=== PATIENT | female | born 1950 | race Caucasian/White ===

== ENCOUNTER 2019-04-26 17:34 | Observation (INO) | payer MEDICARE, OTHER ==
[2019-04-25 23:50] VITALS: BP 118/71
[~2019-04-26] VITALS: Ht 149.9 cm; Wt 63.4 kg
[2019-04-26] MEDS ORDERED: NITROGLYCERIN 0.4 MG SL TABS BTL 25'S SL PRN (17:45)
[2019-04-26] MEDS ORDERED: ASPIRIN 81 MG CHEW (CHILDREN'S ASA) PO ONE (17:45)
[2019-04-26] MEDS ORDERED: HOLD METFORMIN - RECEIVED CONTRAST 20 ML VIAL IV SCH (18:00)
[2019-04-26] MEDS ORDERED: NS 100 ML (IVPB) BAG IV ONE (18:00)
[2019-04-26] MEDS ORDERED: IOHEXOL 350 MG/ML 150 ML (OMNIPAQUE 350) VIAL IV ONE (18:00)
[2019-04-26] MEDS ORDERED: RIVA20TA PO (18:01)
[2019-04-26] MEDS ORDERED: DIGO0.12 PO (18:01)
[2019-04-26] MEDS ORDERED: FURO-125 PO (18:01)
[2019-04-26] MEDS ORDERED: DIVA-76 PO (18:01)
[2019-04-26] MEDS ORDERED: POTA10TA36 PO (18:01)
[2019-04-26] MEDS ORDERED: [UNRECOGNIZED DRUG - CODE] MC (18:01)
[2019-04-26] MEDS ORDERED: ASPI-999 PO (18:01)
--- NOTE | 2019-04-26 18:04 | Diagnostic Imaging Report ---
INDICATION: Tachycardia, cardiac pacemaker. COMPARISON: None. FINDINGS: Single view of the chest demonstrates minimal cardiac enlargement. Lungs are clear. Single lead pacemaker is present. There is no pneumothorax or effusion. Osseous structures are normal. IMPRESSION: Slight cardiac enlargement without pulmonary edema or infiltrate. Dictated by: Dictated on workstation # [id number]
[2019-04-26] MEDS ORDERED: ONDN4T PO (18:05)
[2019-04-26] MEDS ORDERED: iron PO (18:05)
[2019-04-26] MEDS ORDERED: CETI10TA9 PO (18:05)
[2019-04-26] MEDS ORDERED: LISI2.5T PO (18:05)
[2019-04-26] MEDS ORDERED: PARO40TA3 PO (18:05)
[2019-04-26] MEDS ORDERED: CELE-63 PO (18:05)
[2019-04-26] MEDS ORDERED: METO-333 PO (18:05)
[2019-04-26] MEDS ORDERED: TRAZ-190 PO (18:05)
--- NOTE | 2019-04-26 18:05 | ED General ---
General Chief Complaint: General Problems/Pain Stated Complaint: WEAKNESS Nursing Triage Note: Patient advises that she has been feeling dizzy and weak throughout the day and has become progressively worse. She states she has a hx. of cardiac issues and feels like her heart is beating funny. Nursing Sepsis Screen: No Definite Risk Source of Information: Patient Exam Limitations: No Limitations History of Present Illness Date Seen by Provider: Apr 26, 2019 Time Seen by Provider: 18:03 Initial Comments To ER with reports dizziness weakness throughout the day and intermittent palpitations starting today. She just returned from [facility] where she was living last month, she sees Dr. Fitzgerald and has seen him since she has been in [facility] where she is living for the past several years. She has not established care with a primary care physician however. History of pacemaker placement. She is on digoxin and has a history of A. fib as well. She does have left-sided chest pain worse with deep breathing. She has a history of COPD as well. Timing/Duration: 1-2 Days Severity: Moderate Associated Systoms: Denies Symptoms Allergies and Home Medications Allergies Coded Allergies: Sulfa (Sulfonamide Antibiotics) (Verified Allergy, Unknown, 04/26/19) morphine (Verified Allergy, Unknown, 04/26/19) Home Medications Lisinopril 2.5 Mg Tablet, 2.5 MG PO DAILY, (Reported) Metoprolol Tartrate 25 Mg Tablet, 25 MG PO BID, (Reported) Patient Home Medication List Home Medication List Reviewed: Yes Review of Systems Review of Systems Constitutional: see HPI EENTM: see HPI Respiratory: no symptoms reported Cardiovascular: no symptoms reported Genitourinary: no symptoms reported Musculoskeletal: no symptoms reported Skin: no symptoms reported Psychiatric/Neurological: No Symptoms Reported Hematologic/Lymphatic: No Symptoms Reported Immunological/Allergic: no symptoms reported Past Jrpumun-Elwdpl-Kgtlvh Hx Patient Social History Alcohol Use: Denies Use Recreational Drug Use: No Smoking Status: Never a Smoker Recent Foreign Travel: No Contact w/Someone Who Travel: No Recent Infectious Disease Expo: No Seasonal Allergies Seasonal Allergies: Yes Past Medical History Respiratory: Yes Asthma, COPD Cardiac: Yes Atrial Fibrillation Neurological: No Genitourinary: No Gastrointestinal: No Musculoskeletal: No Endocrine: Yes HEENT: No Cancer: No Psychosocial: No Integumentary: No Blood Disorders: No Physical Exam Vital Signs Vital Signs - First Documented 04/26/19 17:37 Temp 36.4 Pulse 68 Resp 16 B/P (MAP) 151/80 (103) Pulse Ox 100 O2 Delivery Nasal Cannula O2 Flow Rate 2.00 FiO2 100 Capillary Refill : Less Than 3 Seconds Height, Weight, BMI Height: '" Weight: lbs. oz. kg; 28.00 BMI Method: General Appearance: No Apparent Distress, WD/WN Eyes: Bilateral Eye Normal Inspection, Bilateral Eye PERRL, Bilateral Eye EOMI Neck: Full Range of Motion, Normal Inspection Respiratory: No Accessory Muscle Use, No Respiratory Distress Cardiovascular: Regular Rate, Rhythm, Normal Peripheral Pulses Gastrointestinal: Normal Bowel Sounds, Non Tender, Soft Extremity: Normal Capillary Refill, Normal Inspection Neurologic/Psychiatric: Alert, Oriented x3 Skin: Normal Color, Warm/Dry Progress/Results/Core Measures Suspected Sepsis Recent Fever Within 48 Hours: No Infection Criteria Present: None New/Unexplained Altered Menta: No Sepsis Screen: No Definite Risk SIRS Temperature: Pulse: 68 Respiratory Rate: 16 Laboratory Tests 04/26/19 18:19: White Blood Count 7.1 Blood Pressure 151 /80 Mean: 103 Laboratory Tests 04/26/19 18:19: Creatinine 1.03, INR Comment 1.2, Platelet Count 222, Total Bilirubin 1.0 Results/Orders Lab Results Laboratory Tests Test 04/26/19 18:19 Range/Units White Blood Count 7.1 4.3-11.0 10^3/uL Red Blood Count 4.68 4.35-5.85 10^6/uL Hemoglobin 14.6 11.5-16.0 G/DL Hematocrit 43 35-52 % Mean Corpuscular Volume 92 80-99 FL Mean Corpuscular Hemoglobin 31 25-34 PG Mean Corpuscular Hemoglobin Concent 34 32-36 G/DL Red Cell Distribution Width 12.4 10.0-14.5 % Platelet Count 222 130-400 10^3/uL Mean Platelet Volume 10.5 H 7.4-10.4 FL Neutrophils (%) (Auto) 61 42-75 % Lymphocytes (%) (Auto) 29 12-44 % Monocytes (%) (Auto) 9 0-12 % Eosinophils (%) (Auto) 1 0-10 % Basophils (%) (Auto) 0 0-10 % Neutrophils # (Auto) 4.4 1.8-7.8 X 10^3 Lymphocytes # (Auto) 2.0 1.0-4.0 X 10^3 Monocytes # (Auto) 0.6 0.0-1.0 X 10^3 Eosinophils # (Auto) 0.1 0.0-0.3 10^3/uL Basophils # (Auto) 0.0 0.0-0.1 10^3/uL Prothrombin Time 15.2 H 12.2-14.7 SEC INR Comment 1.2 0.8-1.4 Activated Partial Thromboplast Time 45 H 24-35 SEC D-Dimer 0.53 H 0.00-0.49 UG/ML Sodium Level 144 135-145 MMOL/L Potassium Level 3.4 L 3.6-5.0 MMOL/L Chloride Level 105 98-107 MMOL/L Carbon Dioxide Level 27 21-32 MMOL/L Anion Gap 12 5-14 MMOL/L Blood Urea Nitrogen 15 7-18 MG/DL Creatinine 1.03 0.60-1.30 MG/DL Estimat Glomerular Filtration Rate 53 BUN/Creatinine Ratio 15 Glucose Level 86 70-105 MG/DL Calcium Level 9.4 8.5-10.1 MG/DL Corrected Calcium 9.3 8.5-10.1 MG/DL Magnesium Level 1.8 1.6-2.4 MG/DL Total Bilirubin 1.0 0.1-1.0 MG/DL Aspartate Amino Transf (AST/SGOT) 21 5-34 U/L Alanine Aminotransferase (ALT/SGPT) 15 0-55 U/L Alkaline Phosphatase 119 40-136 U/L Myoglobin 32.4 10.0-92.0 NG/ML Troponin I < 0.028 <0.028 NG/ML B-Type Natriuretic Peptide 252.8 H <100.0 PG/ML Total Protein 7.1 6.4-8.2 GM/DL Albumin 4.1 3.2-4.5 GM/DL Digoxin Level < 0.30 L 0.80-2.00 NG/ML My Orders Orders - JAIRO GALE APRN Cbc With Automated Diff (04/26/19 17:39) Comprehensive Metabolic Panel (04/26/19 17:39) Magnesium (04/26/19 17:39) Chest 1 View, Ap/Pa Only (04/26/19 17:39) Ekg Tracing (04/26/19 17:39) Cardiac Profile 1 (04/26/19 17:39) Myoglobin Serum (04/26/19 17:39) Protime With Inr (04/26/19 17:39) Partial Thromboplastin Time (04/26/19 17:39) O2 (04/26/19 17:39) Monitor-Rhythm Ecg Trace Only (04/26/19 17:39) Lipid Panel (04/27/19 06:00) Ed Iv/Invasive Line Start (04/26/19 17:39) BNP (04/26/19 17:39) Digoxin (04/26/19 17:43) Aspirin Chewable Tablet (Baby Aspirin Ch (04/26/19 17:45) Nitroglycerin 0.4 Mg Btl 25's (Nitrostat (04/26/19 17:45) Iohexol Injection (Omnipaque 350 Mg/Ml 1 (04/26/19 18:00) Received Contrast (Hold Metformin- Contr (04/26/19 18:00) Ns (Ivpb) (Sodium Chloride 0.9% Ivpb Bag (04/26/19 18:00) Fibrin Degradation Products (04/26/19 17:39) Ketorolac Injection (Toradol Injection) (04/26/19 20:15) Fentanyl Injection (Sublimaze Injection (04/26/19 20:15) Lidocaine 1% Inj 20 Ml (Xylocaine 1% Inj (04/26/19 20:15) Chest 1 View, Ap/Pa Only (04/26/19 20:36) Drug Screen Stat (Urine) (04/26/19 20:45) Medications Given in ED Current Medications Medications Dose Ordered Sig/Nicole Route Start Time Stop Time Status Last Admin Dose Admin Aspirin 324 mg ONCE ONCE PO 04/26/19 17:45 04/26/19 17:47 DC 04/26/19 18:08 324 MG Lidocaine HCl 2 ml ONCE ONCE INJ 04/26/19 20:15 04/26/19 20:16 DC 04/26/19 20:20 2 ML Vital Signs/I&O 04/26/19 04/26/19 17:37 17:37 Temp 36.4 Pulse 68 Resp 16 B/P (MAP) 151/80 (103) Pulse Ox 100 100 O2 Delivery Nasal Cannula Nasal Cannula O2 Flow Rate 2.00 FiO2 100 Capillary Refill : Less Than 3 Seconds Blood Pressure Mean: 103 Departure Communication (Admissions) Time/Spoke to Admitting Phy: 20:[address] Patel, we'll admit, spoke with Dr. Read, Dr. Fitzgerald will consult in the morning. 2016-her IV blew with administration of contrast for the CT angio chest, she refuses to have this done again. She states that she had to have a PICC line last time she was in the hospital due to difficult IV access. I attempted Twice for peripheral IV myself, nursing staff has attempted as well. She states she has terrible veins and has had have IVs placed in her neck historically.. I'll Use a 20-gauge by 1.88 inch single lumen IV catheter placed by ultrasound guidance into the right internal jugular. Dr. oYu agrees with this plan. Impression Primary Impression: Chest pain Qualified Codes: R07.9 - Chest pain, unspecified Disposition: ADMITTED INPATIENT Condition: Stable Admissions Decision to Admit Reason: Admit from ER (General) Decision to Admit/Date: Apr 26, 2019 Time/Decision to Admit Time: 20:17 JAIRO GALE APRN Apr 26, 2019 18:05
[2019-04-26 18:27] LABS: BASOPHILS % (AUTO) 0 % (0-10); EOSINOPHILS # (AUTO) 0.1 10^3/uL (0.0-0.3); EOSINOPHILS % (AUTO) 1 % (0-10); HEMATOCRIT 43 % (35-52); HEMOGLOBIN 14.6 G/DL (11.5-16.0); LYMPHOCYTES % (AUTO) 29 % (12-44); MEAN CORPUSCULAR HEMOGLOBIN 31 PG (25-34); MEAN CORPUSCULAR HGB CONC 34 G/DL (32-36); MEAN CORPUSCULAR VOLUME 92 FL (80-99); MEAN PLATELET VOLUME 10.5 FL (7.4-10.4); MONOCYTES # (AUTO) 0.6 X 10^3 (0.0-1.0); MONOCYTES % (AUTO) 9 % (0-12); NEUTROPHILS # (AUTO) 4.4 X 10^3 (1.8-7.8); NEUTROPHILS % (AUTO) 61 % (42-75); PLATELET COUNT 222 10^3/uL (130-400); RED CELL DISTRIBUTION WIDTH 12.4 % (10.0-14.5); WHITE BLOOD COUNT 7.1 10^3/uL (4.3-11.0)
[2019-04-26 18:40] LABS: FIBRIN DEGRADATION PRODUCTS 0.53 UG/ML (0.00-0.49); INR 1.2 (0.8-1.4); PROTHROMBIN TIME PATIENT 15.2 SEC (12.2-14.7)
[2019-04-26 18:45] LABS: ALANINE AMINOTRANSFERASE 15 U/L (0-55); ALBUMIN 4.1 GM/DL (3.2-4.5); ALKALINE PHOSPHATASE 119 U/L (40-136); BUN/CREATININE RATIO 15; CALCIUM 9.4 MG/DL (8.5-10.1); CARBON DIOXIDE 27 MMOL/L (21-32); CHLORIDE 105 MMOL/L (98-107); CREATININE SERUM 1.03 MG/DL (0.60-1.30); GFR ESTIMATED 53; GLUCOSE 86 MG/DL (70-105); MAGNESIUM 1.8 MG/DL (1.6-2.4); POTASSIUM 3.4 MMOL/L (3.6-5.0); SODIUM 144 MMOL/L (135-145); TOTAL PROTEIN 7.1 GM/DL (6.4-8.2)
[2019-04-26] MEDS ORDERED: KETOROLAC 30 MG/ML VIAL IVP ONE (20:15)
[2019-04-26] MEDS ORDERED: LIDOCAINE 1% INJ 20 ML 20 ML VIAL INJ ONE (20:15)
[2019-04-26] MEDS ORDERED: fentaNYL INJECTION 100 MCG/2 ML AMP IVP ONE (20:15)
--- NOTE | 2019-04-26 20:44 | NUR ---
Stefano GALE APRN REVIEWED pCXR AFTER PLACEMENT OF 20G PERIPHERAL IJ FOR IV ACCESS AND DETERMINED SITE IS OK FOR USE.
--- NOTE | 2019-04-26 21:07 | Diagnostic Imaging Report ---
INDICATION: Line placement. EXAMINATION: Portable erect AP chest at 8:40 p.m. FINDINGS: The heart size is within normal limits and stable when compared with the exam performed earlier today at 5:54 p.m. The right-sided pacemaker, seen previously, is again evident and unchanged in position. The lungs are clear. There is still no sign of failure, pneumonia or a pleural effusion. The mediastinum is not widened. The osseous structures are intact. Reportedly, a line has been inserted in the interval since the prior exam. There is a 4 cm radiopaque device overlying the right neck. Reportedly, this density does correspond to the recently inserted line. IMPRESSION: 1. There is no evidence for an acute cardiopulmonary abnormality. 2. There is a new radiopaque line overlying the right neck. 3. These results were discussed with Brendan Hall APRN. . Dictated by: Dictated on workstation # [id number]
--- NOTE | 2019-04-26 21:25 | NUR ---
RIGHT IJ IV WILL NOT FLUSH. tSefano GALE APRN NOTIFIED. RIGHT IJ REMOVED AT THIS TIME AND PRESSURE HELD UNTIL CLOTTED.
--- NOTE | 2019-04-26 21:45 | NUR ---
JACE PARRISH Joy admitted to room 416-1, with an admitting diagnosis of CHEST PAIN,CHF, on 04/26/19 from AM via CART, accompanied by STAFF.JACE PARRISH introduced to surroundings, call light, bed controls, phone, TV, temperature control, lights, meal times, smoking policy, visitor policy, side rail policy, bathrooms and showers. Patient Rights given to patient in the handbook. JACE PARRISH verbalizes understanding that [facility] is not responsible for the loss or damage to any personal effects or valuables that are kept in the patients posession during their hospitalization.
[2019-04-26 22:02] VITALS: BP 127/58
[2019-04-26] MEDS ORDERED: ONDANSETRON 4 MG/2 ML (SDV) Z0FRAN IV PRN (22:15)
[2019-04-27] VITALS: BP 118/71
[2019-04-27] MEDS: fentaNYL INJECTION 100 MCG/2 ML AMP IV PRN ×2 (01:07→06:23)
[2019-04-27 04:00] VITALS: BP 103/52
[2019-04-27] MEDS ORDERED: FUROSEMIDE 20 MG (LASIX) TAB PO SCH (07:00)
--- NOTE | 2019-04-27 07:34 | Diagnostic Imaging Report ---
Indication: Chest pain Portable chest 3:42 AM There is a unipolar pacemaker. Heart size and pulmonary vascularity are normal. Lungs are clear. There are no effusions or pneumothoraces. IMPRESSION: No acute abnormalities in the chest. No change from the previous day. Dictated by: Dictated on workstation # [id number]
[2019-04-27 08:00] VITALS: BP 115/54
--- NOTE | 2019-04-27 08:24 | Consultation-Cardiology ---
HPI-Cardiology Cardiology Consultation Date of Consultation 04/27/19 Date of Admission Time Seen by Provider: 08:22 Indication: Chest pain HPI 67-year-old lady with history of rheumatoid arthritis, coronary artery disease, congestive heart failure, has been having episode of chest pain described as dull in nature on the left side radiating to the back. Admit having some palpit ation episode of dizziness, reported 2 syncopal episodes yesterday while washing dishes and walking to the chair was caught by her did not fall, no full loss of consciousness. Has been compliant with her medication. She moved from [place] recently, had extensive workup done in [place] in February 2000 Home Medications & Allergies Allergies: Coded Allergies: Sulfa (Sulfonamide Antibiotics) (Verified Allergy, Unknown, 04/26/19) morphine (Verified Allergy, Unknown, 04/26/19) Home Medication List Reviewed: Yes PMW-Ulsbxu-Xawhco Hx Patient Social History Marital Status: Employed/Student: retired Alcohol Use: Denies Use Recreational Drug Use: No Smoking Status: Never a Smoker Recent Foreign Travel: No Recent Infectious Disease Expo: Yes (Had flu shot two weeks ago) Immunizations Up To Date Date of Influenza Vaccine: Apr 17, 2019 Past Medical History Discussed below Family Medical History Family Medical Hx Noncontributory to her current condition Review of Systems-General Review of Systems Constitutional: see HPI, malaise, weakness EENTM: see HPI, no symptoms reported Respiratory: see HPI; No cough; dyspnea on exertion; No hemoptysis, No orthopnea, No phlegm, No short of breath, No stridor, No wheezing, No other Cardiovascular: see HPI, chest pain; No edema, No Hx of Intervention; palpitations, syncope; No vascular heart diseas, No other Gastrointestinal: no symptoms reported, see HPI Genitourinary: no symptoms reported, see HPI Musculoskeletal: see HPI, back pain, joint pain, muscle pain Skin: no symptoms reported, see HPI Psychiatric/Neurological: No Symptoms Reported Reviewed Test Results Reviewed Test Results Lab Laboratory Tests Test 04/26/19 18:19 04/27/19 01:00 04/27/19 06:00 Range/Units White Blood Count 7.1 4.3-11.0 10^3/uL Red Blood Count 4.68 4.35-5.85 10^6/uL Hemoglobin 14.6 11.5-16.0 G/DL Hematocrit 43 35-52 % Mean Corpuscular Volume 92 80-99 FL Mean Corpuscular Hemoglobin 31 25-34 PG Mean Corpuscular Hemoglobin Concent 34 32-36 G/DL Red Cell Distribution Width 12.4 10.0-14.5 % Platelet Count 222 130-400 10^3/uL Mean Platelet Volume 10.5 H 7.4-10.4 FL Neutrophils (%) (Auto) 61 42-75 % Lymphocytes (%) (Auto) 29 12-44 % Monocytes (%) (Auto) 9 0-12 % Eosinophils (%) (Auto) 1 0-10 % Basophils (%) (Auto) 0 0-10 % Neutrophils # (Auto) 4.4 1.8-7.8 X 10^3 Lymphocytes # (Auto) 2.0 1.0-4.0 X 10^3 Monocytes # (Auto) 0.6 0.0-1.0 X 10^3 Eosinophils # (Auto) 0.1 0.0-0.3 10^3/uL Basophils # (Auto) 0.0 0.0-0.1 10^3/uL Prothrombin Time 15.2 H 12.2-14.7 SEC INR Comment 1.2 0.8-1.4 Activated Partial Thromboplast Time 45 H 24-35 SEC D-Dimer 0.53 H 0.00-0.49 UG/ML Sodium Level 144 135-145 MMOL/L Potassium Level 3.4 L 3.6-5.0 MMOL/L Chloride Level 105 98-107 MMOL/L Carbon Dioxide Level 27 21-32 MMOL/L Anion Gap 12 5-14 MMOL/L Blood Urea Nitrogen 15 7-18 MG/DL Creatinine 1.03 0.60-1.30 MG/DL Estimat Glomerular Filtration Rate 53 BUN/Creatinine Ratio 15 Glucose Level 86 70-105 MG/DL Calcium Level 9.4 8.5-10.1 MG/DL Corrected Calcium 9.3 8.5-10.1 MG/DL Magnesium Level 1.8 1.6-2.4 MG/DL Total Bilirubin 1.0 0.1-1.0 MG/DL Aspartate Amino Transf (AST/SGOT) 21 5-34 U/L Alanine Aminotransferase (ALT/SGPT) 15 0-55 U/L Alkaline Phosphatase 119 40-136 U/L Myoglobin 32.4 10.0-92.0 NG/ML Troponin I < 0.028 < 0.028 < 0.028 <0.028 NG/ML B-Type Natriuretic Peptide 252.8 H <100.0 PG/ML Total Protein 7.1 6.4-8.2 GM/DL Albumin 4.1 3.2-4.5 GM/DL Digoxin Level < 0.30 L 0.80-2.00 NG/ML Physical Exam Physical Exam Vital Signs Vital Signs - First Documented 04/25/19 04/26/19 23:50 17:37 Temp 36.2 Pulse 68 Resp 20 B/P (MAP) 118/71 (87) Pulse Ox 97 O2 Delivery Nasal Cannula O2 Flow Rate 2.00 FiO2 100 Capillary Refill : Less Than 3 Seconds Height, Weight, BMI Height: '" Weight: lbs. oz. kg; 28.21 BMI Method: General Appearance: No Apparent Distress, WD/WN Eyes: Bilateral Eye Normal Inspection, Bilateral Eye PERRL, Bilateral Eye EOMI HEENT: PERRL/EOMI, TMs Normal, Normal ENT Inspection, Pharynx Normal, Moist Mucous Membranes Neck: Full Range of Motion, Normal Inspection Respiratory: No Accessory Muscle Use, No Respiratory Distress Cardiovascular: Regular Rate, Rhythm, No Edema, No Gallop, No Murmur, Normal Peripheral Pulses Gastrointestinal: Normal Bowel Sounds, Non Tender, Soft Back: Normal Inspection, No CVA Tenderness, No Vertebral Tenderness Extremity: Normal Capillary Refill, Normal Inspection Neurologic/Psychiatric: Alert, Oriented x3 Skin: Normal Color, Warm/Dry Lymphatic: No Adenopathy A/P-Cardiology Admission Diagnosis Chest pain Congestive heart failure, chronic compensated left ventricular systolic dysfunction, nonischemic cardiomyopathy Syncope Hypertension Chronic atrial fibrillation Assessment/Plan Chest pain nonspecific etiology, atypical in presentation, EKG did not show any acute abnormality, cardiac enzymes were negative, had a cardiac catheterization done in February 2019 [place] and reported to be normal Coronary artery disease, multiple interventions in the past, had a cardiac catheterization done in [place] in February 2019 reported to have 40-50 percent LAD stenosis otherwise mild coronary artery disease nonobstructive disease. Congestive heart failure, history of pacemaker, I will evaluate 2-D echocardiogram History of permanent pacemaker Medtronic, interrogation of the pacemaker showed single chamber pacemaker functioning normally, had one short runs of atrial fibrillation with rapid ventricular response on April 23, 2019. Syncope, had multiple episodes of hypotension and dizziness, taking pain medication, will evaluate orthostatic blood pressure. Paroxysmal atrial fibrillation, maintained on Xarelto Hypertension, controlled, monitor blood pressure Hyperlipidemia, monitor lipids. Gastroesophageal reflux disease maintained on PPI and Carafate. Anxiety, depression Clinical Quality Measures DVT/VTE Risk/Contraindication: Risk Factor Score Per Nursin RFS Level Per Nursing on Admit: 4+=Very High ADELAIDA RIGGS MD Apr 27, 2019 08:24
[2019-04-27 08:30] VITALS: BP_SYST 109; BP_SYST 111; BP_SYST 119; BP_DIAS 51; BP_DIAS 57; BP_DIAS 58
[2019-04-27] MEDS ORDERED: POTA10CA43 PO (08:57)
[2019-04-27] MEDS ORDERED: ONDA4TAB11 PO (08:57)
[2019-04-27] MEDS ORDERED: DIGO125T3 PO (08:57)
[2019-04-27] MEDS ORDERED: GLYC15DR3 OU (08:57)
[2019-04-27] MEDS ORDERED: FOLI-74 PO (08:57)
[2019-04-27] MEDS ORDERED: FERR325T18 PO (08:57)
[2019-04-27] MEDS ORDERED: KETO5DRO15 OU (08:57)
[2019-04-27] MEDS ORDERED: POLY17PO6 PO (08:57)
[2019-04-27] MEDS ORDERED: CRAN1TAB4 PO (08:57)
[2019-04-27] MEDS ORDERED: ASPIRIN E.C. 81 MG (ECOTRIN) TAB PO SCH (09:00)
[2019-04-27] MEDS ORDERED: DIGOXIN 0.125 MG (LANOXIN) TAB PO SCH (09:00)
[2019-04-27] MEDS ORDERED: lisINopril 5 MG (PRINIVIL) TABLET PO SCH (09:00)
[2019-04-27] MEDS ORDERED: meTOprolol TARTRATE 25 MG (LOPRESSOR) TABLET PO SCH (09:00)
--- NOTE | 2019-04-27 09:00 | NUR ---
SPOKE WITH THE PATIENT ABOUT HER MEDICATIONS. SHE HAD ALL OF HER BOTTLES WITH HER. SHE HAS FILLED MOST OF THEM AT [facility] IN [facility] HOWEVER SHE STATES SHE HAS NOW MOVED HERE AND WILL BE USING [facility] IN [place]. BOTTLES SHE HAS WITH HER FROM [employer]: 03-28-19 PAXIL 40MG #14 (TAKES AT HS, NEEDS TO GET IT REFILLED) 03-13-19 POTASSIUM 10MEQ CAP DAILY #90 03-13-19 METOPROLOL TARTRATE 25MG 1/2 BID #90 03-13-19 LASIX 20MG DAILY #90 03-13-19 LISINOPRIL 2.5MG DAILY #90 03-13-19 XARELTO 20MG EVERY EVENING #90 (TAKES AT 1000) 03-13-19 DIGOXIN 0.125MG DAILY #90 03-13-19 CELEBREX 200MG BID #60 02-23-19 TRAZODONE 100MG BID #180 OTHER BOTTLES: KETOTIFEN OU BID (NEEDS TO GET IT REFILLED) 09-26-18 ZOFRAN ODT 4MG Q4H PRN #30 12-31-[address] 500MG BID #60 ([facility], STATES THEY JUST PUT NEW PILL IN THE BOTTLE BUT IS TAKING IT BID AND HAS NOT MISSED DOSES DESPITE THE PAST DUE FILL DATE- PHARMACY WAS CLOSED WHEN I CALLED TO VERIFY) OTC MEDS: MIRALAX PRN ASPIRIN 81MG CHEW DAILY ZYRTEC 10MG DAILY FERROUS SULFATE 325MG DAILY ONE A DAY FOR WOMEN DAILY LUBRICANT EYE DROPS PRN CRANBERRY AZO 2 DAILY
--- NOTE | 2019-04-27 09:00 | NUR ---
B/P LYING 109/51, SITTING 119/57, AND STANDING 111/58. REPORT TO DR. RIGGS.
--- NOTE | 2019-04-27 10:04 | NUR ---
PACEMAKER INTEROGATED AND REPORT TO DR. RIGGS.
[2019-04-27 11:26] LABS: BILIRUBIN,URINE NEGATIVE (NEGATIVE); CLARITY,URINE CLEAR; COLOR,URINE YELLOW; GLUCOSE, URINE (UA) NEGATIVE (NEGATIVE); KETONES,URINE NEGATIVE (NEGATIVE); LEUKOCYTE ESTERASE ,URINE 1+ (NEGATIVE); NITRITE,URINE NEGATIVE (NEGATIVE); PH,URINE 6 (5-9); PROTEIN,URINE 1+ (NEGATIVE)
[2019-04-27 11:35] LABS: BACTERIA,URINE TRACE /HPF; RBC,URINE RARE /HPF
[2019-04-27 12:00] VITALS: BP 101/56
[2019-04-27] MEDS ORDERED: TRM50T PO (12:41)
--- NOTE | 2019-04-27 12:43 | Discharge Instructions ---
Discharge Instructions Discharge Medications New, Converted or Re-Newed RX: RX Given to Pt/Family Patient Instructions Patient Instructions Take medications as prescribed. Follow up with Dr. Mancilla. Establish with a primary care physician. Return to [facility] Hospital For: chest pain, shortness of breath, or if you feel like you're getting worse. Activity & Diet Discharge Diet: No Restrictions Activity as Tolerated: Yes ATIF MARTEL MD Apr 27, 2019 12:43
--- NOTE | 2019-04-27 14:03 | NUR ---
CM/SS spoke with the patient regarding discharge planning and her obtaining a PCP. Patient had an appointment with Dr Velasco at [facility] and Dr shawceled it. Provided information on other physicians at [facility] and other PCP in [place]. Patient was wanting to follow up with [facility].
--- NOTE | 2019-04-27 15:09 | NUR ---
RX AND INST AND VERBALIZED UNDERSTANDING. DC'D TO HOME WITH FAMILY.
[2019-04-27] MEDS ORDERED: RIVAROXABAN 20 MG TABLET (XARELTO) PO SCH (17:00)
--- NOTE | 2019-04-28 12:49 | Discharge Summary ---
Discharge Summary Hospital Course Was the Problem List Reviewed?: Yes Problems/Dx: (1) Atypical chest pain Status: Acute Final Diagnosis: Atypical chest pain Hospital Course Date of Admission: Apr 26, 2019 at 20:49 Admission Diagnosis : Chest pain Family Physician/Provider: [facility]il[facility] Physician Date of Discharge: 04/28/19 Discharge Diagnosis: Atypical chest pain Hospital Course: Nubia Gore is a 67yoF with history of coronary artery disease presented with left-sided chest pain and was diagnosed with costochondritis. She had serial troponins which were negative. She had an EKG without concerning changes. She had a recent heart catheterization in [place] which was normal. She had an echocardiogram which revealed a normal ejection fraction and no regional wall motion abnormalities. She should use [id number] Tylenol for costochondritis. She should follow up with cardiology. She needs to establish with a primary care physician. Labs and Pending Lab Test: Home Meds Active Tramadol HCl 50 Mg Tablet 50 Mg PO Q6H PRN 7 Days Reported Ketotifen Fumarate 5 Ml Drops 1 Drop OU BID Azo Cranberry Tablet (Cranberry Conc/C/Bacill Coag) 1 Each Tablet 2 Tab PO DAILY Lubricant Eye Drops (Glycerin/Propylene Glycol) 15 Ml Drops 1 Drop OU TID PRN One Daily For Women Tablet (Folic Acid/Mv,Fe,Other Min) 1 Each Tablet 1 Tab PO DAILY Ferrous Sulfate 325 Mg Tablet 325 Mg PO DAILY Ondansetron Odt (Ondansetron) 4 Mg Tab.rapdis 4 Mg PO Q4H PRN Potassium Chloride 10 Meq Capsule.er 10 Meq PO DAILY Digoxin 125 Mcg Tablet 125 Mcg PO DAILY Miralax (Polyethylene Glycol 3350) 17 Gm Powd.pack 17 Gm PO DAILY PRN Celecoxib 200 Mg Capsule 200 Mg PO BID Trazodone HCl 100 Mg Tablet 100 Mg PO BID Lisinopril 2.5 Mg Tablet 2.5 Mg PO DAILY Wal-Zyr (Cetirizine HCl) 10 Mg Tablet 10 Mg PO DAILY Paroxetine HCl 40 Mg Tablet 40 Mg PO HS Metoprolol Tartrate 25 Mg Tablet 12.5 Mg PO BID TAKES 1/2 (25MG) TABLET Lasix (Furosemide) 20 Mg Tablet 20 Mg PO DAILY Divalproex Sodium 500 Mg Tablet.dr 500 Mg PO BID Aspirin 81 Mg Tab.chew 81 Mg PO DAILY Xarelto (Rivaroxaban) 20 Mg Tablet 20 Mg PO 1000 Assessment/Pt Instructions Take medications as prescribed. Follow up with Dr. Fitzgerald. Establish with a primary care doctor. Discharge Instructions Discharge Diet: No Restrictions Activity as Tolerated: Yes Pneumonia Vaccine Order Indica: Yes Consultations cardiology Discharge Physical Examination General Appearance: Alert, Oriented X3, Cooperative, No Acute Distress HEENT: Atraumatic, EOMI Cardiovascular: Regular Rate, No Murmurs Abdominal: Normal Bowel Sounds, Soft, No Tenderness Extremities: No Edema, No Tenderness/Swelling Skin: No Rashes, No Significant Lesion Neuro: Normal Speech, Normal Tone Psych/Mental Status: Mental Status NL, Mood NL Allergies: Coded Allergies: Sulfa (Sulfonamide Antibiotics) (Verified Allergy, Unknown, 04/26/19) morphine (Verified Allergy, Unknown, 04/26/19) Discharge Summary Date of Admission Apr 26, 2019 at 20:49 Date of Discharge Apr 27, 2019 at 15:10 Discharge Date: Apr 27, 2019 Discharge Time: 14:00 Admission Diagnosis chest pain Consults/Procedures Consulations cardiology Discharge Diagnosis (1) Atypical chest pain Status: Acute Clinical Quality Measures DVT/VTE Risk/Contraindication: Risk Factor Score Per Nursin RFS Level Per Nursing on Admit: 4+=Very High ATIF MARTEL MD Apr 28, 2019 12:48
--- OUTSIDE RECORDS SUMMARY | 2019-05-20 03:17 | XMS REPORT ---
Author Author [facility] M edical Staff POS Organization [facility] SP Address [address] [place] [address] Phone [phone] SP Summary purpose CCDA Sent to [facility] Chief Complaint and Reason for Visit No authorized Reason for Visit (Admitting Diagnosis) is available for this visit . Problem list No authorized problems tracked for continuity of care are available for this vis it. Encounters No authorized problems tracked for encounter diagnoses are available for this vi sit. Medications No medications recorded for this patient visit Allergies, adverse reactions, alerts No allergy information is available for this patient. Immunizations No immunizations recorded for this patient visit Relevant diagnostic tests and/or laboratory data No authorized results are available for this patient visit History of procedures Procedure Code Code Type Description Date Performed [place] [address] CPT-4 COMPLETE CBC W/AUTO DIFF WBC 05-11-2017 MAEGAN POST Functional status No functional or cognitive status observations are available for this visit. Vital signs No authorized vital signs are available for this visit. Social history No Social History or smoking status observations were recorded for this visit. ( Unknown if ever smoked.) Treatment Plan No treatment plan text is available for this visit. Hospital discharge instructions No discharge instruction text is available for this visit.
== END 2019-04-27 12:39 | disposition home or self-care (01) ==
LOC: EDUNIT# 17:34 → ER 17:37 → EDBD 17:37 → 4TH 20:49 → UNDOADMOB 20:49 → 4TH 21:45 → UNDODISOB 04-27 15:10
PROVIDERS: ADMIT Internal Medicine; ATTEND Internal Medicine
DX: R07.9 Chest pain, unspecified (principal); R53.1 Weakness; I11.0 Hypertensive heart disease with heart failure; I50.9 Heart failure, unspecified; I48.20 Chronic atrial fibrillation, unspecified; I95.9 Hypotension, unspecified; I48.0 Paroxysmal atrial fibrillation; J30.9 Allergic rhinitis, unspecified; J44.9 Chronic obstructive pulmonary disease, unspecified; E78.5 Hyperlipidemia, unspecified; K21.9 Gastro-esophageal reflux disease without esophagitis; F41.8 Other specified anxiety disorders; Z88.5 Allergy status to narcotic agent; Z88.2 Allergy status to sulfonamides; Z79.899 Other long term (current) drug therapy; Z95.0 Presence of cardiac pacemaker
CPT/HCPCS: 36415; 71045; 80053; 80162; 81000; 83735; 83874; 83880; 84484; 85025; 85379; 85610; 85730; 87088; 93005; 93041; 93306; 96374; 96375; G0378

== ENCOUNTER 2019-05-12 14:58 | Emergency (ER) | payer MEDICARE ==
[~2019-05-12] VITALS: Ht 152 cm; Wt 69.9 kg
[~2019-05-12 14:58] MED LIST: ASPI-999 PO; CELE-63 PO; CETI10TA9 PO; CRAN1TAB4 PO; DIGO0.12 PO; DIGO125T3 PO; DIVA-76 PO; FERR325T18 PO; FOLI-74 PO; FURO-125 PO; GLYC15DR3 OU; KETO5DRO15 OU; LISI2.5T PO; METO-333 PO; ONDA4TAB11 PO; ONDN4T PO; PARO40TA3 PO; POLY17PO6 PO; POTA10CA43 PO; POTA10TA36 PO; RIVA20TA PO; TRAZ-190 PO; TRM50T PO; [UNRECOGNIZED DRUG - CODE] MC; iron PO
--- NOTE | 2019-05-12 15:08 | ED General ---
General Stated Complaint: SEIZURE Source of Information: Patient Exam Limitations: No Limitations History of Present Illness Date Seen by Provider: May 12, 2019 Time Seen by Provider: 15:06 Initial Comments To ER with reports of seizure-like activity. EMS was called to [place] where she was at when she reported some lightheadedness. Family helped her to the floor, she was alert but had some twitching motion, she was able to talk throughout this twitching motion. She has paroxysmal atrial fibrillation, was seen here recently and follows with Dr. Corea now. She ran out of her Ultram last week and her paroxetine last week. She denies chest pain or shortness of breath. She still feels lightheaded she reports. Timing/Duration: 1-2 Days Severity: Moderate Associated Systoms: Denies Symptoms, Weakness Allergies and Home Medications Allergies Coded Allergies: Sulfa (Sulfonamide Antibiotics) (Verified Allergy, Unknown, 04/26/19) morphine (Verified Allergy, Unknown, 04/26/19) Home Medications Aspirin 81 Mg Tab.chew, 81 MG PO DAILY, (Reported) Celecoxib 200 Mg Capsule, 200 MG PO BID, (Reported) Cetirizine HCl 10 Mg Tablet, 10 MG PO DAILY, (Reported) Cranberry Conc/C/Bacill Coag 1 Each Tablet, 2 TAB PO DAILY, (Reported) Digoxin 125 Mcg Tablet, 125 MCG PO DAILY, (Reported) Divalproex Sodium 500 Mg Tablet.dr, 500 MG PO BID, (Reported) Ferrous Sulfate 325 Mg Tablet, 325 MG PO DAILY, (Reported) Folic Acid/Mv,Fe,Other Min 1 Each Tablet, 1 TAB PO DAILY, (Reported) Furosemide 20 Mg Tablet, 20 MG PO DAILY, (Reported) Glycerin/Propylene Glycol 15 Ml Drops, 1 DROP OU TID PRN for DRY EYES, (Reported) Ketotifen Fumarate 5 Ml Drops, 1 DROP OU BID, (Reported) Lisinopril 2.5 Mg Tablet, 2.5 MG PO DAILY, (Reported) Metoprolol Tartrate 25 Mg Tablet, 12.5 MG PO BID, (Reported) TAKES 1/2 (25MG) TABLET Ondansetron 4 Mg Tab.rapdis, 4 MG PO Q4H PRN for NAUSEA/VOMITING-1ST LINE, (Reported) Paroxetine HCl 40 Mg Tablet, 40 MG PO HS, (Reported) Polyethylene Glycol 3350 17 Gm Powd.pack, 17 GM PO DAILY PRN for CONSTIPATION-2ND LINE, (Reported) Potassium Chloride 10 Meq Capsule.er, 10 MEQ PO DAILY, (Reported) Rivaroxaban 20 Mg Tablet, 20 MG PO 1000, (Reported) Tramadol HCl 50 Mg Tablet, 50 MG PO Q6H PRN for PAIN-MODERATE Prescribed by: ATIF MARTEL on 04/27/19 1241 Trazodone HCl 100 Mg Tablet, 100 MG PO BID, (Reported) Patient Home Medication List Home Medication List Reviewed: Yes Review of Systems Review of Systems Constitutional: see HPI EENTM: see HPI Respiratory: no symptoms reported Cardiovascular: no symptoms reported Genitourinary: no symptoms reported Musculoskeletal: no symptoms reported Skin: no symptoms reported Psychiatric/Neurological: No Symptoms Reported Hematologic/Lymphatic: No Symptoms Reported Immunological/Allergic: no symptoms reported Past Pfmanim-Bkjfga-Cmaidj Hx Immunizations Up To Date Date of Influenza Vaccine: Apr 17, 2019 Seasonal Allergies Seasonal Allergies: Yes Past Medical History Respiratory: Yes Asthma, COPD Cardiac: Yes Atrial Fibrillation Neurological: No Genitourinary: No Gastrointestinal: No Musculoskeletal: No Endocrine: Yes HEENT: No Cancer: No Psychosocial: No Integumentary: No Blood Disorders: No Physical Exam Vital Signs Vital Signs - First Documented 05/12/19 15:15 Temp 36.3 Pulse 105 Resp 19 B/P (MAP) 161/129 (140) O2 Delivery Room Air Capillary Refill : Height, Weight, BMI Height: '" Weight: lbs. oz. kg; 28.21 BMI Method: General Appearance: No Apparent Distress, WD/WN Eyes: Bilateral Eye Normal Inspection, Bilateral Eye PERRL, Bilateral Eye EOMI HEENT: PERRL/EOMI, TMs Normal Neck: Full Range of Motion, Normal Inspection Respiratory: Normal Breath Sounds, No Accessory Muscle Use, No Respiratory Distress Cardiovascular: Normal Peripheral Pulses, Irregularly Irregular Gastrointestinal: Normal Bowel Sounds, Non Tender, Soft Extremity: Normal Capillary Refill, Normal Inspection Neurologic/Psychiatric: Alert, Oriented x3 Skin: Normal Color, Warm/Dry Progress/Results/Core Measures Suspected Sepsis SIRS Temperature: Pulse: Respiratory Rate: Laboratory Tests 05/12/19 15:11: White Blood Count 8.6 Blood Pressure / Mean: Laboratory Tests 05/12/19 15:11: Creatinine 1.16, Platelet Count 285, Total Bilirubin 1.1H Results/Orders Lab Results Laboratory Tests Test 05/12/19 15:11 05/12/19 15:37 05/12/19 15:41 Range/Units White Blood Count 8.6 4.3-11.0 10^3/uL Red Blood Count 4.97 4.35-5.85 10^6/uL Hemoglobin 15.3 11.5-16.0 G/DL Hematocrit 45 35-52 % Mean Corpuscular Volume 90 80-99 FL Mean Corpuscular Hemoglobin 31 25-34 PG Mean Corpuscular Hemoglobin Concent 34 32-36 G/DL Red Cell Distribution Width 12.4 10.0-14.5 % Platelet Count 285 130-400 10^3/uL Mean Platelet Volume 11.3 H 7.4-10.4 FL Neutrophils (%) (Auto) 58 42-75 % Lymphocytes (%) (Auto) 34 12-44 % Monocytes (%) (Auto) 8 0-12 % Eosinophils (%) (Auto) 1 0-10 % Basophils (%) (Auto) 0 0-10 % Neutrophils # (Auto) 4.9 1.8-7.8 X 10^3 Lymphocytes # (Auto) 2.9 1.0-4.0 X 10^3 Monocytes # (Auto) 0.7 0.0-1.0 X 10^3 Eosinophils # (Auto) 0.1 0.0-0.3 10^3/uL Basophils # (Auto) 0.0 0.0-0.1 10^3/uL Sodium Level 142 135-145 MMOL/L Potassium Level 4.9 3.6-5.0 MMOL/L Chloride Level 107 98-107 MMOL/L Carbon Dioxide Level 21 21-32 MMOL/L Anion Gap 14 5-14 MMOL/L Blood Urea Nitrogen 20 H 7-18 MG/DL Creatinine 1.16 0.60-1.30 MG/DL Estimat Glomerular Filtration Rate 46 BUN/Creatinine Ratio 17 Glucose Level 101 70-105 MG/DL Calcium Level 10.2 H 8.5-10.1 MG/DL Corrected Calcium 8.5-10.1 MG/DL Magnesium Level 2.1 1.6-2.4 MG/DL Total Bilirubin 1.1 H 0.1-1.0 MG/DL Aspartate Amino Transf (AST/SGOT) 29 5-34 U/L Alanine Aminotransferase (ALT/SGPT) 10 0-55 U/L Alkaline Phosphatase 132 40-136 U/L Troponin I < 0.028 <0.028 NG/ML Total Protein 7.8 6.4-8.2 GM/DL Albumin 4.6 H 3.2-4.5 GM/DL Thyroid Stimulating Hormone (TSH) 3.99 0.35-4.94 UIU/ML B-Type Natriuretic Peptide 308.0 H <100.0 PG/ML Urine Color YELLOW Urine Clarity CLEAR Urine pH 6 5-9 Urine Specific [place] 1.010 L 1.016-1.022 Urine Protein NEGATIVE NEGATIVE Urine Glucose (UA) NEGATIVE NEGATIVE Urine Ketones NEGATIVE NEGATIVE Urine Nitrite NEGATIVE NEGATIVE Urine Bilirubin NEGATIVE NEGATIVE Urine Urobilinogen NORMAL NORMAL MG/DL Urine Leukocyte Esterase NEGATIVE NEGATIVE Urine RBC (Auto) 1+ H NEGATIVE Urine RBC 0-2 /HPF Urine WBC NONE /HPF Urine Squamous Epithelial Cells RARE /HPF Urine Crystals NONE /LPF Urine Bacteria NEGATIVE /HPF Urine Casts NONE /LPF Urine Mucus NEGATIVE /LPF Urine Culture Indicated NO My Orders Orders - JAIRO GALE APRN Troponin I (05/12/19 15:04) Chest 1 View, Ap/Pa Only (05/12/19 15:04) Ekg Tracing (05/12/19 15:04) Ed Iv/Invasive Line Start (05/12/19 15:04) Monitor-Rhythm Ecg Trace Only (05/12/19 15:04) Thyroid Stimulating Hormone (05/12/19 15:04) BNP (05/12/19 15:04) Cbc With Automated Diff (05/12/19 15:04) Comprehensive Metabolic Panel (05/12/19 15:04) Magnesium (05/12/19 15:04) Ua Culture If Indicated (05/12/19 15:38) Vital Signs/I&O 05/12/19 15:15 Temp 36.3 Pulse 105 Resp 19 B/P (MAP) 161/129 (140) O2 Delivery Room Air Capillary Refill : Departure Impression Primary Impression: Lightheadedness Disposition: 01 HOME, SELF-CARE Condition: Stable Departure-Patient Inst. Decision time for Depature: 16:29 Referrals: SHAHBAZ FAJARDO MD FACP FAC CCDS Sumi CHUN MD, BASHAR J MD NO,LOCAL PHYSICIAN (PCP) Primary Care Physician Patient Instructions: Syncope (Fainting) Add. Discharge Instructions: 1. Follow-up with one of the cardiologists listed 2. Return to ER for any concerns JAIRO GALE APRN May 12, 2019 15:08 POS
[2019-05-12 15:18] LABS: BASOPHILS % (AUTO) 0 % (0-10); EOSINOPHILS # (AUTO) 0.1 10^3/uL (0.0-0.3); EOSINOPHILS % (AUTO) 1 % (0-10); HEMATOCRIT 45 % (35-52); HEMOGLOBIN 15.3 G/DL (11.5-16.0); LYMPHOCYTES # (AUTO) 2.9 X 10^3 (1.0-4.0); LYMPHOCYTES % (AUTO) 34 % (12-44); MEAN CORPUSCULAR HEMOGLOBIN 31 PG (25-34); MEAN CORPUSCULAR HGB CONC 34 G/DL (32-36); MEAN CORPUSCULAR VOLUME 90 FL (80-99); MEAN PLATELET VOLUME 11.3 FL (7.4-10.4); MONOCYTES # (AUTO) 0.7 X 10^3 (0.0-1.0); MONOCYTES % (AUTO) 8 % (0-12); NEUTROPHILS # (AUTO) 4.9 X 10^3 (1.8-7.8); NEUTROPHILS % (AUTO) 58 % (42-75); PLATELET COUNT 285 10^3/uL (130-400); RED CELL DISTRIBUTION WIDTH 12.4 % (10.0-14.5); WHITE BLOOD COUNT 8.6 10^3/uL (4.3-11.0)
--- NOTE | 2019-05-12 15:38 | Diagnostic Imaging Report ---
PATIENT HISTORY: Atrial fibrillation. TECHNIQUE: Single frontal view of the chest. COMPARISON: 04/27/2019. FINDINGS: The lung volumes are normal. No focal consolidation is seen. No large pleural effusion or pneumothorax is seen. The cardiomediastinal silhouette is normal in size and contour. No acute osseous abnormality is seen. The right-sided pacemaker lead appears stable. There is a chronic right rotator cuff injury. IMPRESSION: No acute pulmonary abnormality seen. Dictated by: Dictated on workstation # [id number]
[2019-05-12 15:41] LABS: ALANINE AMINOTRANSFERASE 10 U/L (0-55); ALBUMIN 4.6 GM/DL (3.2-4.5); ALKALINE PHOSPHATASE 132 U/L (40-136); BILIRUBIN,TOTAL 1.1 MG/DL (0.1-1.0); BUN/CREATININE RATIO 17; CALCIUM 10.2 MG/DL (8.5-10.1); CARBON DIOXIDE 21 MMOL/L (21-32); CHLORIDE 107 MMOL/L (98-107); CREATININE SERUM 1.16 MG/DL (0.60-1.30); GFR ESTIMATED 46; GLUCOSE 101 MG/DL (70-105); MAGNESIUM 2.1 MG/DL (1.6-2.4); POTASSIUM 4.9 MMOL/L (3.6-5.0); SODIUM 142 MMOL/L (135-145); TOTAL PROTEIN 7.8 GM/DL (6.4-8.2)
[2019-05-12 15:56] LABS: BILIRUBIN,URINE NEGATIVE (NEGATIVE); CLARITY,URINE CLEAR; COLOR,URINE YELLOW; GLUCOSE, URINE (UA) NEGATIVE (NEGATIVE); KETONES,URINE NEGATIVE (NEGATIVE); LEUKOCYTE ESTERASE ,URINE NEGATIVE (NEGATIVE); NITRITE,URINE NEGATIVE (NEGATIVE); PH,URINE 6 (5-9); PROTEIN,URINE NEGATIVE (NEGATIVE)
[2019-05-12 16:20] LABS: BACTERIA,URINE NEGATIVE /HPF; RBC,URINE 0-2 /HPF; SQUAMOUS EPITHELIAL CELL,UR RARE /HPF
[2019-05-12 16:58] VITALS: BP 159/87
== END 2019-05-12 16:58 | disposition home or self-care (01) ==
LOC: ER 14:58
DX: R42 Dizziness and giddiness (principal); I48.91 Unspecified atrial fibrillation; J44.9 Chronic obstructive pulmonary disease, unspecified; Z88.2 Allergy status to sulfonamides; Z88.5 Allergy status to narcotic agent; Z79.82 Long term (current) use of aspirin; Z79.01 Long term (current) use of anticoagulants
CPT/HCPCS: 36415; 71045; 80053; 81000; 83735; 83880; 84443; 84484; 85025; 93005; 93041

== ENCOUNTER → 2019-06-19 | Outpatient (CLI) | payer MEDICARE ==
[~2019-06-19] MED LIST changes: +ALPR0.254 PO; +FLUT16SP22 NS; +FURO20TA4 PO
--- NOTE | 2019-06-19 12:58 | Diagnostic Imaging Report ---
INDICATION: Screening. The current study was also evaluated with a Computer Aided Detection (CAD) system. 3-D Tomographic imaging was also performed. No prior examinations are available for comparison. FINDINGS: There are scattered fibroglandular densities bilaterally. There is a cluster of pleomorphic microcalcifications in the inferior medial left breast. There are few other scattered benign-type calcifications. There is no dominant mass or spiculated lesion. Skin and nipples are unremarkable. IMPRESSION: Further imaging needed. Cluster of pleomorphic microcalcifications in the inferior medial left breast. These should be further characterized with magnification compression views. ACR BI-RADS Category 0: Incomplete. (Needs additional imaging evaluation). Result letter will be mailed to the patient. Note: At least 10% of breast cancer is not imaged by mammography. Dictated by: Dictated on workstation # [id number]
== END ==
LOC: RAD 10:22
PROVIDERS: ATTEND Family Medicine
DX: Z12.31 Encounter for screening mammogram for malignant neoplasm of breast (principal)
CPT/HCPCS: 77067

== ENCOUNTER → 2019-07-06 | Outpatient (CLI) | payer MEDICARE ==
[~2019-07-06] MED LIST changes: -ALPR0.254 PO; +DIGO125T PO; -DIGO125T3 PO; -FLUT16SP22 NS; -FURO20TA4 PO; +TRAM50TA2 PO; -TRM50T PO
--- NOTE | 2019-07-06 19:26 | Diagnostic Imaging Report ---
INDICATION: Left breast calcification. Patient presents for additional views. COMPARISON: Correlation is made with recent screening study from 06/19/2019. EXAMINATION: Unilateral left 2D and 3D diagnostic mammography was performed. This included magnification CC, magnification ML as well as conventional 90 degree lateral view. FINDINGS: There is a cluster of indeterminate microcalcifications in the lower and inner left breast, mid depth. These are indeterminate. No associated soft tissue mass is seen. No other abnormality is identified. IMPRESSION: Indeterminate cluster of microcalcifications in the lower inner left breast at mid depth. Tissue sampling is recommended. These would be amenable to stereotactic approach. Findings and recommendations were discussed with the patient at the time of this exam. ACR BI-RADS Category 4: Suspicious abnormality. Result letter will be mailed to the patient. Note: At least 10% of breast cancer is not imaged by mammography. Dictated by: Dictated on workstation # [id number]
== END ==
LOC: RAD 12:42
PROVIDERS: ATTEND Family Medicine
DX: R92.0 Mammographic microcalcification found on diagnostic imaging of breast (principal)

== ENCOUNTER → 2019-07-21 | Outpatient (CLI) | payer MEDICARE ==
[~2019-07-21] VITALS: Ht 152.4 cm; Wt 63.6 kg
[2019-07-21] VITALS (7 sets, daily range): BP systolic 131–166; BP diastolic 68–88
[~2019-07-21] MED LIST changes: -DIGO125T PO; +DIGO125T3 PO; +LIDOCAINE 1% INJ 20 ML 20 ML VIAL INJ ONE; +NS 100 ML (IVPB) BAG IV STA; +NS 1000 ML IV BAG IV ONE; -TRAM50TA2 PO; +TRM50T PO
--- NOTE | 2019-07-21 11:30 | NUR ---
1130: Pt complaining about feeling lightheaded, dizzy and nauseous following the procedure. Pt transported to procedure room via wheelchair with family and hooked up to monitor. This RN noted the patient to be in afib with bigeminy. HR 62. 1142: Dr. Fitzgerald notified of pt in afib with bigeminy, HR varying from 50-70. BP 156/87. Pt symptomatic of light-headedness, dizziness and nausea. Dr. Fitzgerald states he will look at her chart and call me back. 1155: Dr. Fitzgerald called back after looking through her chart and notified me that pt is chronically in AFIB and has a pacemaker. Dr. Fitzgerald suggested giving 500mL bolus of saline or send her to ER. This RN and ARMOND Don from slab conditioner supervisor attempted to start an IV with 3 failed attempts. Pt instructed she would need to go to ER to get the fluids that Dr. Fitzgerald ordered. Pt refusing to go to ER. Pt states, "I will go home and rest, take my Xanax, eat and drink and I will come back if I don't feel better." This RN educated pt and family on risks of leaving the hospital and refusing recommended medical interventions. Pt and family state they understand and pt reiterated, "My daughter will bring me back to hospital if I don't feel better." 1240 Pt transferred via wheelchair to registration entrance and assisted into her friends vehicle.
--- NOTE | 2019-07-21 13:03 | Diagnostic Imaging Report ---
INDICATION: Left breast calcifications. Patient presents for stereotactic biopsy. Patient brought to the stereotactic suite placed in a chair in a sitting upright position. Breast was placed in a mediolateral position. The calcifications in the lower inner aspect of the left breast were stereotactically targeted. Medial left breast was then prepped and draped in usual sterile fashion. Small amount of 1% lidocaine was utilized for local anesthesia. An 8 gauge needle was advanced from a mediolateral approach into the left breast and placed with its tip per stereotactic coordinates adjacent to the cluster microcalcifications. 4 core biopsies were obtained utilizing a vacuum-assisted device. Specimen radiograph demonstrates numerous calcifications within sample labeled #3. A marker clip was deployed. Needle was removed and hemostasis was obtained using manual compression. Followup postprocedure 2-D CC and MLO mammography demonstrates marker clip in the medial left breast. All images were viewed on a dedicated workstation. Towards the completion of the procedure, patient did become become lightheaded and and became syncopal. Patient rapidly gained consciousness and alert and oriented. Patient was monitored in the department for some time. IMPRESSION: Stereotactic biopsy of the left breast microcalcification cluster, as described. Pathology results are currently pending. Dictated by: Dictated on workstation # [id number]
== END ==
LOC: RAD 09:21
PROVIDERS: ATTEND Family Medicine
DX: N64.1 Fat necrosis of breast (principal); R92.0 Mammographic microcalcification found on diagnostic imaging of breast
CPT/HCPCS: 19081; 88305

== ENCOUNTER 2019-08-14 12:05 | Observation (INO) | payer MEDICARE ==
[~2019-08-14] VITALS: Ht 157 cm; Wt 69.8 kg
[~2019-08-14 12:05] MED LIST changes: -LIDOCAINE 1% INJ 20 ML 20 ML VIAL INJ ONE; -NS 100 ML (IVPB) BAG IV STA; -NS 1000 ML IV BAG IV ONE
--- NOTE | 2019-08-14 12:06 | NUR ---
This RN to CT with this patient
--- NOTE | 2019-08-14 12:16 | Diagnostic Imaging Report ---
PROCEDURE: CT head WO, R/O stroke. TECHNIQUE: Multiple contiguous axial images were obtained through the brain without the use of intravenous contrast. Auto Exposure Controls were utilized during the CT exam to meet ALARA standards for radiation dose reduction. INDICATION: Unresponsive. COMPARISON: No prior studies are available for comparison. FINDINGS: Ventricles and sulci are within normal limits. No sulcal effacement or midline shift is detected. No acute intra-axial or extra-axial hemorrhage is detected. Cisterns are patent. Visualized paranasal sinuses are clear. IMPRESSION: No acute intracranial process is detected. Results were called to the emergency department at 12:15 p.m. Dictated by: Dictated on workstation # [id number]
--- NOTE | 2019-08-14 12:16 | NUR ---
Patient to ED room 3
--- NOTE | 2019-08-14 12:35 | NUR ---
Due to current condition, pt is poor historian, unable to provide PMH. Previous medical history recalled from previous visits.
--- NOTE | 2019-08-14 12:47 | NUR ---
RT at bedside for ABG attempts, lab at bedside for blood draw - multiple attemps by 2 RNs and manufacturing lab technician.
[2019-08-14 12:52] LABS: BASOPHILS % (AUTO) 0 % (0-10); EOSINOPHILS # (AUTO) 0.2 10^3/uL (0.0-0.3); EOSINOPHILS % (AUTO) 2 % (0-10); HEMATOCRIT 41 % (35-52); HEMOGLOBIN 13.6 G/DL (11.5-16.0); LYMPHOCYTES # (AUTO) 2.3 X 10^3 (1.0-4.0); LYMPHOCYTES % (AUTO) 19 % (12-44); MEAN CORPUSCULAR HEMOGLOBIN 31 PG (25-34); MEAN CORPUSCULAR HGB CONC 33 G/DL (32-36); MEAN CORPUSCULAR VOLUME 94 FL (80-99); MEAN PLATELET VOLUME 10.2 FL (7.4-10.4); MONOCYTES # (AUTO) 0.9 X 10^3 (0.0-1.0); MONOCYTES % (AUTO) 7 % (0-12); NEUTROPHILS # (AUTO) 8.6 X 10^3 (1.8-7.8); NEUTROPHILS % (AUTO) 72 % (42-75); PLATELET COUNT 175 10^3/uL (130-400)
[2019-08-14 12:54] LABS: ABG BASE EXCESS 2.4 MMOL/L (-2.5-2.5); ABG OXYGEN SATURATION 97 % (94-100); ABG PCO2 43 MMHG (35-45); ABG PH 7.41 (7.37-7.43); ABG PO2 80 MMHG (79-93); ABG TCO2 28.1 MMOL/L (21.0-31.0)
[2019-08-14 12:56] LABS: ALLENS TEST YES-POS; INSPIRED O2 ROOM AIR; VENTILATOR NO
[2019-08-14 12:57] LABS: PATIENT TEMP 36.8
--- NOTE | 2019-08-14 13:11 | ED Neurological Problem ---
General Chief Complaint: Neuro-Stroke Like Symptoms Stated Complaint: AMS Nursing Triage Note: Pt to ED via [facility]. EMS called by friends for altered mental status. Pt weak and lethargic. EMS reports general weakness and L side facial droop, state LKW after returning from [place] not long prior to EMS page. Upon arrival to ED, pt lethargic, speech slurred and pt confused. Pt taken directly to CT upon arrival Nursing Sepsis Screen: No Definite Risk Source: patient Exam Limitations: no limitations History of Present Illness Date Seen by Provider: Aug 14, 2019 Time Seen by Provider: 12:10 Initial Comments Here with report of altered mental status by EMS. Noted to have generalized weakness and question of left facial droop. Patient is on Xarelto. She apparently was able to go to the [employer] okay this morning and after getting home was when she noted to have altered mental status. She apparently ran out of her Xanax the night before last and has not had any since. She is on long-term benzodiazepine treatment. Denies nausea, vomiting, diarrhea or dysuria. Directly to CT for stroke activation on arrival. Timing/Duration: 1-3 hours Severity: moderate Associated Symptoms: confusion, fatigue; No fever/chills; nausea/vomiting, slu rred speech, weakness Allergies and Home Medications Allergies Coded Allergies: Sulfa (Sulfonamide Antibiotics) (Verified Allergy, Unknown, 04/26/19) morphine (Verified Allergy, Unknown, 04/26/19) Home Medications Aspirin 81 Mg Tab.chew, 81 MG PO DAILY, (Reported) Celecoxib 200 Mg Capsule, 200 MG PO BID, (Reported) Cetirizine HCl 10 Mg Tablet, 10 MG PO DAILY, (Reported) Cranberry Conc/C/Bacill Coag 1 Each Tablet, 2 TAB PO DAILY, (Reported) Digoxin 125 Mcg Tablet, 125 MCG PO DAILY, (Reported) Divalproex Sodium 500 Mg Tablet.dr, 500 MG PO BID, (Reported) Ferrous Sulfate 325 Mg Tablet, 325 MG PO DAILY, (Reported) Folic Acid/Mv,Fe,Other Min 1 Each Tablet, 1 TAB PO DAILY, (Reported) Furosemide 20 Mg Tablet, 20 MG PO DAILY, (Reported) Glycerin/Propylene Glycol 15 Ml Drops, 1 DROP OU TID PRN for DRY EYES, (Reported) Ketotifen Fumarate 5 Ml Drops, 1 DROP OU BID, (Reported) Lisinopril 2.5 Mg Tablet, 2.5 MG PO DAILY, (Reported) Metoprolol Tartrate 25 Mg Tablet, 12.5 MG PO BID, (Reported) TAKES 1/2 (25MG) TABLET Ondansetron 4 Mg Tab.rapdis, 4 MG PO Q4H PRN for NAUSEA/VOMITING-1ST LINE, (Reported) Paroxetine HCl 40 Mg Tablet, 40 MG PO HS, (Reported) Polyethylene Glycol 3350 17 Gm Powd.pack, 17 GM PO DAILY PRN for CONSTIPATION- 2ND LINE, (Reported) Potassium Chloride 10 Meq Capsule.er, 10 MEQ PO DAILY, (Reported) Rivaroxaban 20 Mg Tablet, 20 MG PO 1000, (Reported) Tramadol HCl 50 Mg Tablet, 50 MG PO Q6H PRN for PAIN-MODERATE Prescribed by: ATIF MARTEL on 04/27/19 1241 Trazodone HCl 100 Mg Tablet, 100 MG PO BID, (Reported) Patient Home Medication List Home Medication List Reviewed: Yes Review of Systems Review of Systems Constitutional: see HPI; No chills, No fever; weakness Eyes: No Symptoms Reported Ears, Nose, Mouth, Throat: no symptoms reported Respiratory: No cough, No short of breath Cardiovascular: No chest pain, No edema Gastrointestinal: No abdominal pain, No nausea, No vomiting Genitourinary: No dysuria, No incontinence Musculoskeletal: No joint pain; muscle weakness Skin: no symptoms reported Psychiatric/Neurological: See HPI, Anxiety, Weakness All Other Systems Reviewed Negative Unless Noted: Yes Past Rvvokxp-Avkbvg-Fqtagk Hx Past Med/Social Hx: Reviewed Nursing Past Med/Soc Hx Patient Social History Alcohol Use: Denies Use Recreational Drug Use: No Smoking Status: Unknown if Ever Smoked 2nd Hand Smoke Exposure: No Recent Foreign Travel: No Contact w/Someone Who Travel: No Recent Infectious Disease Expo: No Recent Hopitalizations: Yes (IN THIS HOSP TWO WEEKS AGO FOR AFIB) Immunizations Up To Date Date of Influenza Vaccine: Apr 17, 2019 Seasonal Allergies Seasonal Allergies: Yes Past Medical History Surgeries: Yes Adenoidectomy, Appendectomy, Gallbladder, Tonsillectomy Respiratory: Yes Asthma, COPD 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 oz. kg; 23.00 BMI Method: General Appearance: WD/WN, mild distress (anxious) HEENT: PERRL/EOMI, TMs normal, pharynx normal Neck: non-tender, full range of motion, supple, normal inspection Respiratory: lungs clear, normal breath sounds Cardiovascular: bradycardia, irregularly irregular Peripheral Pulses: 2+ Dorsalis Pedis (R), 2+ Left Dors-Pedis (L), 2+ Radial Pulses (R), 2+ Radial Pulses (L) Gastrointestinal: non tender, soft Back: normal inspection, no CVA tenderness, no vertebral tenderness Extremities: non-tender, normal inspection Neurologic/Psychiatric: alert, other (confused with slurred speech.) Crainal Nerves: PERRL, abnormal speech Motor/Sensory: no sensory deficit, weak motor strength RUE, weak motor strength LUE, weak motor strength RLE, weak motor strength LLE Skin: normal color, warm/dry Focused Exam Lactate Level 08/14/19 12:43: Lactic Acid Level 1.02 Lactic Acid Level Laboratory Tests Test 08/14/19 12:43 Lactic Acid Level 1.02 MMOL/L (0.50-2.00) Progress/Results/Core Measures Results/Orders Lab Results Laboratory Tests Test 08/14/19 12:42 08/14/19 12:43 08/14/19 12:49 08/14/19 12:55 Range/Units Glucometer 110 70-110 MG/DL White Blood Count 12.0 H 4.3-11.0 10^3/uL Red Blood Count 4.36 4.35-5.85 10^6/uL Hemoglobin 13.6 11.5-16.0 G/DL Hematocrit 41 35-52 % Mean Corpuscular Volume 94 80-99 FL Mean Corpuscular Hemoglobin 31 25-34 PG Mean Corpuscular Hemoglobin Concent 33 32-36 G/DL Red Cell Distribution Width 13.0 10.0-14.5 % Platelet Count 175 130-400 10^3/uL Mean Platelet Volume 10.2 7.4-10.4 FL Neutrophils (%) (Auto) 72 42-75 % Lymphocytes (%) (Auto) 19 12-44 % Monocytes (%) (Auto) 7 0-12 % Eosinophils (%) (Auto) 2 0-10 % Basophils (%) (Auto) 0 0-10 % Neutrophils # (Auto) 8.6 H 1.8-7.8 X 10^3 Lymphocytes # (Auto) 2.3 1.0-4.0 X 10^3 Monocytes # (Auto) 0.9 0.0-1.0 X 10^3 Eosinophils # (Auto) 0.2 0.0-0.3 10^3/uL Basophils # (Auto) 0.0 0.0-0.1 10^3/uL Lactic Acid Level 1.02 0.50-2.00 MMOL/L Blood Gas Puncture Site L RADIAL Blood Gas Patient Temperature 36.8 Arterial Blood pH 7.41 7.37-7.43 Arterial Blood Partial Pressure CO2 43 35-45 MMHG Arterial Blood Partial Pressure O2 80 79-93 MMHG Arterial Blood HCO3 27 23-27 MMOL/L Arterial Blood Total CO2 28.1 21.0-31.0 MMOL/L Arterial Blood Oxygen Saturation 97 94-100 % Arterial Blood Base Excess 2.4 -2.5-2.5 MMOL/L Javier Test YES-POS Blood Gas Ventilator Setting NO Blood Gas Inspired Oxygen ROOM AIR Sodium Level 138 135-145 MMOL/L Potassium Level 4.9 3.6-5.0 MMOL/L Chloride Level 104 98-107 MMOL/L Carbon Dioxide Level 26 21-32 MMOL/L Anion Gap 8 5-14 MMOL/L Blood Urea Nitrogen 18 7-18 MG/DL Creatinine 1.18 0.60-1.30 MG/DL Estimat Glomerular Filtration Rate 46 BUN/Creatinine Ratio 15 Glucose Level 100 70-105 MG/DL Calcium Level 9.4 8.5-10.1 MG/DL Corrected Calcium 9.4 8.5-10.1 MG/DL Total Bilirubin 0.7 0.1-1.0 MG/DL Aspartate Amino Transf (AST/SGOT) 26 5-34 U/L Alanine Aminotransferase (ALT/SGPT) 18 0-55 U/L Alkaline Phosphatase 113 40-136 U/L Troponin I < 0.028 <0.028 NG/ML Total Protein 6.7 6.4-8.2 GM/DL Albumin 4.0 3.2-4.5 GM/DL Test 08/14/19 13:10 08/14/19 14:25 Range/Units Urine Color YELLOW Urine Clarity CLEAR Urine pH 5.0 5-9 Urine Specific [place] 1.020 1.016-1.022 Urine Protein NEGATIVE NEGATIVE Urine Glucose (UA) NEGATIVE NEGATIVE Urine Ketones NEGATIVE NEGATIVE Urine Nitrite NEGATIVE NEGATIVE Urine Bilirubin NEGATIVE NEGATIVE Urine Urobilinogen 0.2 < = 1.0 MG/DL Urine Leukocyte Esterase NEGATIVE NEGATIVE Urine RBC (Auto) NEGATIVE NEGATIVE Urine RBC NONE /HPF Urine WBC NONE /HPF Urine Squamous Epithelial Cells NONE /HPF Urine Crystals NONE /LPF Urine Bacteria NEGATIVE /HPF Urine Casts NONE /LPF Urine Mucus NEGATIVE /LPF Urine Culture Indicated NO Urine Opiates Screen NEGATIVE NEGATIVE Urine Oxycodone Screen NEGATIVE NEGATIVE Urine Methadone Screen NEGATIVE NEGATIVE Urine Propoxyphene Screen NEGATIVE NEGATIVE Urine Barbiturates Screen NEGATIVE NEGATIVE Ur Tricyclic Antidepressants Screen NEGATIVE NEGATIVE Urine Phencyclidine Screen NEGATIVE NEGATIVE Urine Amphetamines Screen NEGATIVE NEGATIVE Urine Methamphetamines Screen NEGATIVE NEGATIVE Urine Benzodiazepines Screen POSITIVE H NEGATIVE Urine Cocaine Screen NEGATIVE NEGATIVE Urine Cannabinoids Screen NEGATIVE NEGATIVE Digoxin Level 0.52 L 0.80-2.00 NG/ML Salicylates Level < 5.0 L 5.0-20.0 MG/DL Acetaminophen Level < 10 L 10-30 UG/ML Serum Alcohol < 10 <10 MG/DL Micro Results Microbiology 08/14/19 Influenza Types A,B Antigen (NADIA) - Final, Complete My Orders Orders - MAGI GEE MD Cbc With Automated Diff (08/14/19 12:10) Protime With Inr (08/14/19 12:10) Partial Thromboplastin Time (08/14/19 12:10) Comprehensive Metabolic Panel (08/14/19 12:10) Fibrin Degradation Products (08/14/19 12:10) Troponin I (08/14/19 12:10) Ua Culture If Indicated (08/14/19 12:10) Chest 1 View, Ap/Pa Only (08/14/19 12:10) Catheter(Urinary) Insert & Ass 03,15 (08/14/19 12:10) Ekg Tracing (08/14/19 12:10) Nothing By Mouth (08/14/19 Dinner) Accucheck Stat ONCE (08/14/19 12:10) Ed Iv/Invasive Line Start (08/14/19 12:10) Vital Signs Stroke Patient Q15M (08/14/19 12:10) O2 (08/14/19 12:10) Intake & Output 06,14,22 (08/14/19 12:10) Monitor-Rhythm Ecg Trace Only (08/14/19 12:10) Dysphagia Screening Tool (08/14/19 12:10) Lipid Panel (08/15/19 06:00) Lactic Acid Analyzer (08/14/19 12:10) Blood Culture (08/14/19 12:10) Arterial Blood Gas (08/14/19 12:49) Influenza A And B Antigens (08/14/19 12:26) Arterial Blood Draw (08/14/19 ) Acetaminophen (08/14/19 13:48) Alcohol (08/14/19 13:48) Digoxin (08/14/19 13:48) Drug Screen Stat (Urine) (08/14/19 13:48) Salicylate (08/14/19 13:48) Vital Signs/I&O 08/14/19 12:16 Temp 36.2 Pulse 85 Resp 18 B/P (MAP) 105/57 (73) Pulse Ox 96 O2 Delivery Room Air Blood Pressure Mean: 73 FSBG Bedside Testing Finger Stick Blood Glucose: 110 Progress Progress Note : Progress Note Seen and evaluated. Stroke order set initiated and patient had rapid evaluation and CT which was negative and shows no bleed. Patient is on Xarelto would not qualify for TPA. Initial stroke screen 8 per nursing monitor patient. 1405: Very difficult IV placement on her. I attempted left EJ as well as ultrasound-guided peripheral needle insertion to the left upper arm and both were unsuccessful. The EJ placement was unsuccessful largely because of patient movement and anxiety. She is talking much better now and family are in the room. She was able to recall about being out of Xanax. She does have chronic pain but her doctor will not start her on pain medicine. There is concerns about atrial fibrillation which she chronically has and she is covered with Xarelto. Labs to this point are reassuring. We have added toxicology screens as well. Overall she is doing much better. Monitor patient. 1507: Patient is still altered mental status but doing better. Obviously not able to go home at this point but much better overall. She will need MRI tomorrow. I did discuss the case with Dr. Barriga and he accepts patient for admission, observation status for the altered mental state and confusion with some background weakness. Discussed with patient and family who agree with the plan. No other obvious findings noted. Initial ECG Impression Date: Aug 14, 2019 Initial ECG Impression Time: 12:17 Initial ECG Rate: 84 Initial ECG Rhythm: A Fib/Flutter Comment Atrial fibrillation with ventricular paced complexes. No evidence of ST elevation ME. Previous was just atrial fibrillation on 05/12/19. Interpreted by me. Diagnostic Imaging Diagonstic Imaging: CT Plain Films/CT/US/NM/MRI: head Comments [facility] [place], [place] NAME: JACE PARRISH [facility] REC#: [id number] PT STATUS: REG ER : 1950 PHYSICIAN: EFRAIN URENA MD ADMIT DATE: 08/14/19/ER Draft Date of Exam:08/14/19 CT HEAD WO-R/O STROKE PROCEDURE: CT head WO, R/O stroke. TECHNIQUE: Multiple contiguous axial images were obtained through the brain without the use of intravenous contrast. Auto Exposure Controls were utilized during the CT exam to meet ALARA standards for radiation dose reduction. INDICATION: Unresponsive. COMPARISON: No prior studies are available for comparison. FINDINGS: Ventricles and sulci are within normal limits. No sulcal effacement or midline shift is detected. No acute intra-axial or extra-axial hemorrhage is detected. Cisterns are patent. Visualized paranasal sinuses are clear. IMPRESSION: No acute intracranial process is detected. Results were called to the emergency department at 12:15 p.m. Dictated on workstation # [id number] Dict: 08/14/19 1213 Trans: 08/14/19 1216 [id number] Interpreted by: SHERMAN PRATT MD Electronically signed by: Diagonstic Imaging: Xray Plain Films/CT/US/NM/MRI: chest Comments [facility] [place], [place] NAME: SHIVANIJACE [facility] REC#: [id number] PT STATUS: REG ER : 1950 PHYSICIAN: MAGI GEE MD ADMIT DATE: 08/14/19/ER Draft Date of Exam:08/14/19 CHEST 1 VIEW, AP/PA ONLY HISTORY: Altered mental status. Lethargy. Generalized weakness with left-sided facial droop. COMPARISON: 05/12/2019. TECHNIQUE: Single frontal view of the chest. FINDINGS: The right-sided pacemaker lead appears stable. Lung volumes are normal. No focal consolidation is seen. There is no pleural effusion or pneumothorax. The cardiac silhouette is stable in size. IMPRESSION: 1. No acute pulmonary abnormality is seen. Dictated on workstation # [id number] Dict: 08/14/19 1337 Trans: 08/14/19 1340 [id number] Interpreted by: ROHIT GARZA MD Electronically signed by: Departure Communication (Admissions) Time/Spoke to Admitting Phy: 15:07 Impression Primary Impression: Altered mental status Qualified Codes: R41.0 - Disorientation, unspecified Disposition: ADMITTED INPATIENT Condition: Stable Admissions Decision to Admit Reason: Admit from ER (General) Decision to Admit/Date: Aug 14, 2019 Time/Decision to Admit Time: 15:07 Departure-Patient Inst. Referrals: ROSIBEL BARRIGA DO (PCP/Family) Primary Care Physician MAGI GEE MD Aug 14, 2019 13:11
[2019-08-14 13:21] LABS: ALANINE AMINOTRANSFERASE 18 U/L (0-55); ALKALINE PHOSPHATASE 113 U/L (40-136); BILIRUBIN,TOTAL 0.7 MG/DL (0.1-1.0); BUN/CREATININE RATIO 15; CALCIUM 9.4 MG/DL (8.5-10.1); CARBON DIOXIDE 26 MMOL/L (21-32); CHLORIDE 104 MMOL/L (98-107); CREATININE SERUM 1.18 MG/DL (0.60-1.30); GFR ESTIMATED 46; GLUCOSE 100 MG/DL (70-105); POTASSIUM 4.9 MMOL/L (3.6-5.0); SODIUM 138 MMOL/L (135-145); TOTAL PROTEIN 6.7 GM/DL (6.4-8.2)
[2019-08-14 13:26] LABS: BILIRUBIN,URINE NEGATIVE (NEGATIVE); CLARITY,URINE CLEAR; COLOR,URINE YELLOW; GLUCOSE, URINE (UA) NEGATIVE (NEGATIVE); KETONES,URINE NEGATIVE (NEGATIVE); LEUKOCYTE ESTERASE ,URINE NEGATIVE (NEGATIVE); NITRITE,URINE NEGATIVE (NEGATIVE); PROTEIN,URINE NEGATIVE (NEGATIVE)
--- NOTE | 2019-08-14 13:27 | NUR ---
Patient complaining of pain to IV site in RAC. IV fluids moved to 24G IV in R hand. RAC site cool to touch but flushes well. IV cathether removed at this time.
[2019-08-14 13:32] LABS: BACTERIA,URINE NEGATIVE /HPF
--- NOTE | 2019-08-14 13:41 | Diagnostic Imaging Report ---
HISTORY: Altered mental status. Lethargy. Generalized weakness with left-sided facial droop. COMPARISON: 05/12/2019. TECHNIQUE: Single frontal view of the chest. FINDINGS: The right-sided pacemaker lead appears stable. Lung volumes are normal. No focal consolidation is seen. There is no pleural effusion or pneumothorax. The cardiac silhouette is stable in size. IMPRESSION: 1. No acute pulmonary abnormality is seen. Dictated by: Dictated on workstation # [id number]
--- NOTE | 2019-08-14 13:44 | NUR ---
Dr You at bedside for additional IV attempts
[2019-08-14 14:15] LABS: AMPHETAMINE SCREEN, URINE NEGATIVE (NEGATIVE); BARBITURATE SCREEN URINE NEGATIVE (NEGATIVE); BENZODIAZEPINES SCREEN URINE POSITIVE (NEGATIVE); CANNABINOID SCREEN, URINE NEGATIVE (NEGATIVE); COCAINE SCREEN URINE NEGATIVE (NEGATIVE); METHADONE STAT NEGATIVE (NEGATIVE); METHAMPHETAMINE SCREEN URINE S NEGATIVE (NEGATIVE); OPIATE SCREEN URINE NEGATIVE (NEGATIVE); OXYCODONE STAT NEGATIVE (NEGATIVE); PROPOXYPHENE STAT NEGATIVE (NEGATIVE); TRICYCLIC ANTIDEPRESSANTS SCRE NEGATIVE (NEGATIVE)
--- NOTE | 2019-08-14 14:30 | NUR ---
fluids infusing per EMS complete at this time
[2019-08-14 15:03] LABS: SALICYLATE < 5.0 MG/DL (5.0-20.0)
[2019-08-14 15:12] LABS: ACETAMINOPHEN < 10 UG/ML (10-30)
--- NOTE | 2019-08-14 15:55 | NUR ---
Mak catheter removed prior to admission to floor
--- NOTE | 2019-08-14 16:10 | NUR ---
Jace Parrish] admitted to room 406-1, with an admitting diagnosis of AMS, on 08/14/19 from AM via , accompanied by .JACE PARRIHS introduced to surroundings, call light, bed controls, phone, TV, temperature control, lights, meal times, smoking policy, visitor policy, side rail policy, bathrooms and showers. Patient Rights given to patient in the handbook.JACE PARRISH verbalizes understanding that [facility] is not responsible for the loss or damage to any personal effects or valuables that are kept in the patients posession during their hospitalization.JACE PARRISH verbalizes understanding of Interdisciplinary Patient Education. Patient and/or family were informed about the Rapid Response Team and its purpose.
[2019-08-14 16:23] VITALS: BP 117/77
[2019-08-14] MEDS ORDERED: ONDANSETRON 4 MG/2 ML (SDV) Z0FRAN IVP PRN (16:45)
[2019-08-14 17:47] LABS: FIBRIN DEGRADATION PRODUCTS 0.26 UG/ML (0.00-0.49); INR 2.4 (0.8-1.4); PROTHROMBIN TIME PATIENT 26.8 SEC (12.2-14.7)
--- NOTE | 2019-08-14 18:34 | History & Physical ---
History of Present Illness History of Present Illness Reason for visit/HPI Mental status change. Patient states she got confused today. Patient was not able to sleep the last 3 nights. Patient went to the bank and did not know any of the people. Patient had drooping of the left side of the mouth. Patient was lethargic, speech slurred, and patient confused. Patient has history of atrial fibrillation not on xarelto. Previous surgeries tonsillectomy, complete hysterectomy, appendectomy, gallbladder, mesh around rectum Date of Admission Aug 14, 2019 at 15:06 Time Seen by a Provider: 18:31 I consulted on this patient on 08/14/19 18:20 Attending Physician Noah Barriga DO Admitting Physician Noah Barriga DO Consult Allergies and Home Medications Allergies Coded Allergies: Sulfa (Sulfonamide Antibiotics) (Verified Allergy, Unknown, 04/26/19) morphine (Verified Allergy, Unknown, 04/26/19) Home Medications Aspirin 81 Mg Tab.chew, 81 MG PO DAILY, (Reported) Celecoxib 200 Mg Capsule, 200 MG PO BID, (Reported) Cetirizine HCl 10 Mg Tablet, 10 MG PO DAILY, (Reported) Cranberry Conc/C/Bacill Coag 1 Each Tablet, 2 TAB PO DAILY, (Reported) Digoxin 125 Mcg Tablet, 125 MCG PO DAILY, (Reported) Divalproex Sodium 500 Mg Tablet.dr, 500 MG PO BID, (Reported) Ferrous Sulfate 325 Mg Tablet, 325 MG PO DAILY, (Reported) Folic Acid/Mv,Fe,Other Min 1 Each Tablet, 1 TAB PO DAILY, (Reported) Furosemide 20 Mg Tablet, 20 MG PO DAILY, (Reported) Glycerin/Propylene Glycol 15 Ml Drops, 1 DROP OU TID PRN for DRY EYES, (Reported) Ketotifen Fumarate 5 Ml Drops, 1 DROP OU BID, (Reported) Lisinopril 2.5 Mg Tablet, 2.5 MG PO DAILY, (Reported) Metoprolol Tartrate 25 Mg Tablet, 12.5 MG PO BID, (Reported) TAKES 1/2 (25MG) TABLET Ondansetron 4 Mg Tab.rapdis, 4 MG PO Q4H PRN for NAUSEA/VOMITING-1ST LINE, (Reported) Paroxetine HCl 40 Mg Tablet, 40 MG PO HS, (Reported) Polyethylene Glycol 3350 17 Gm Powd.pack, 17 GM PO DAILY PRN for CONSTIPATION- 2ND LINE, (Reported) Potassium Chloride 10 Meq Capsule.er, 10 MEQ PO DAILY, (Reported) Rivaroxaban 20 Mg Tablet, 20 MG PO 1000, (Reported) Tramadol HCl 50 Mg Tablet, 50 MG PO Q6H PRN for PAIN-MODERATE Prescribed by: ATIF MARTEL on 04/27/19 1241 Trazodone HCl 100 Mg Tablet, 100 MG PO BID, (Reported) Patient Home Medication List Home Medication List Reviewed: No Past Vpkyjoh-Mjnsrk-Hvyxdb Hx Past Med/Social Hx: Reviewed Nursing Past Med/Soc Hx Patient Social History Employed/Student: retired Alcohol Use: Denies Use Recreational Drug Use: No Smoking Status: Unknown if Ever Smoked 2nd Hand Smoke Exposure: No Physical Abuse Screen: No Sexual Abuse: No Recent Foreign Travel: No Contact w/other who traveled: No Recent Hopitalizations: Yes (IN THIS HOSP TWO WEEKS AGO FOR AFIB) Recent Infectious Disease Expo: No Immunizations Up To Date Date of Influenza Vaccine: Apr 17, 2019 Seasonal Allergies Seasonal Allergies: Yes Past Medical History Surgeries: Adenoidectomy, Appendectomy, Gallbladder, Tonsillectomy Cardiac: Atrial Fibrillation, Heart Attack, Syncope Endocrine: Hypothyroidsim History of Blood Disorders: No Family History Reviewed Nursing Family Hx No Pertinent Family Hx Review of Systems Constitutional: malaise, weakness EENTM: other (Mouth drooping) Respiratory: no symptoms reported Cardiovascular: other (Atrial fibrillation) Gastrointestinal: no symptoms reported Genitourinary: no symptoms reported Physical Exam Vital Signs Vital Signs - First Documented 08/14/19 12:16 Temp 36.2 Pulse 85 Resp 18 B/P (MAP) 105/57 (73) Pulse Ox 96 O2 Delivery Room Air Capillary Refill : Less Than 3 Seconds Height, Weight, BMI Height: '" Weight: lbs. oz. kg; 28.31 BMI Method: General Appearance: No Apparent Distress, WD/WN Eyes: Bilateral Eye Normal Inspection HEENT: Other (Drooping of mouth the left) Neck: Full Range of Motion, Normal Inspection Respiratory: Lungs Clear, No Accessory Muscle Use, No Respiratory Distress Cardiovascular: Irregularly Irregular Gastrointestinal: Non Tender, Soft Assessment/Plan Assessment and Plan Acute mental status change. A. fib. Confusion. Weakness. CAD. Admission Diagnosis Admission Status: Observation Clinical Quality Measures DVT/VTE Risk/Contraindication: Risk Factor Score Per Nursin RFS Level Per Nursing on Admit: 4+=Very High NOAH BARRIGA DO Aug 14, 2019 18:34
[2019-08-14] MEDS: 1/2 NS IV SOLUTION 1,000 ML IV SCH (18:47)
[2019-08-14 20:30] VITALS: BP 97/50
[2019-08-15] VITALS: BP 130/72
[2019-08-15 04:00] VITALS: BP 126/61
[2019-08-15 04:46] LABS: BASOPHILS % (AUTO) 0 % (0-10); EOSINOPHILS # (AUTO) 0.2 10^3/uL (0.0-0.3); EOSINOPHILS % (AUTO) 2 % (0-10); HEMATOCRIT 40 % (35-52); HEMOGLOBIN 13.2 G/DL (11.5-16.0); LYMPHOCYTES # (AUTO) 2.5 X 10^3 (1.0-4.0); LYMPHOCYTES % (AUTO) 30 % (12-44); MEAN CORPUSCULAR HEMOGLOBIN 31 PG (25-34); MEAN CORPUSCULAR HGB CONC 33 G/DL (32-36); MEAN CORPUSCULAR VOLUME 93 FL (80-99); MEAN PLATELET VOLUME 10.4 FL (7.4-10.4); MONOCYTES # (AUTO) 0.7 X 10^3 (0.0-1.0); MONOCYTES % (AUTO) 8 % (0-12); NEUTROPHILS % (AUTO) 60 % (42-75); PLATELET COUNT 178 10^3/uL (130-400); RED CELL DISTRIBUTION WIDTH 12.9 % (10.0-14.5); WHITE BLOOD COUNT 8.3 10^3/uL (4.3-11.0)
[2019-08-15 05:06] LABS: ALBUMIN 3.6 GM/DL (3.2-4.5); BILIRUBIN,TOTAL 1.6 MG/DL (0.1-1.0); CREATININE SERUM 0.97 MG/DL (0.60-1.30); POTASSIUM 3.9 MMOL/L (3.6-5.0); TOTAL PROTEIN 5.8 GM/DL (6.4-8.2)
--- NOTE | 2019-08-15 07:28 | Progress Note ---
Subjective Time Seen by a Provider: 07:19 Subjective/Events-last exam Patient doing better today. Patient alert. Patient conversing good. Droopiness on one side of the mouth decreased. Patient complains of sore throat. Plan to discharge today Focused Exam Lactate Level 08/14/19 12:43: Lactic Acid Level 1.02 Objective Exam Vital Signs Date Time Temp Pulse Resp B/P (MAP) Pulse Ox O2 Delivery O2 Flow Rate FiO2 08/15/19 04:00 36.2 82 18 126/61 (82) 97 Room Air 08/15/19 01:00 89 08/15/19 00:00 36.4 69 18 130/72 (91) 95 Room Air 08/14/19 20:43 70 08/14/19 20:30 36.8 88 18 97/50 (66) 96 Room Air 08/14/19 20:00 Room Air 08/14/19 17:43 96 Room Air 08/14/19 16:23 36.9 83 20 117/77 96 Room Air 08/14/19 16:00 36.2 75 18 104/75 (73) 96 Room Air 08/14/19 12:16 36.2 85 18 105/57 (73) 96 Room Air Capillary Refill : Less Than 3 Seconds General Appearance: No Apparent Distress, WD/WN HEENT: Normal ENT Inspection Neck: Full Range of Motion, Normal Inspection Respiratory: Lungs Clear, No Accessory Muscle Use, No Respiratory Distress Cardiovascular: Irregularly Irregular Gastrointestinal: non tender, soft Results Lab Laboratory Tests 08/14/19 12:43 08/14/19 12:55 08/15/19 04:15 Laboratory Tests 08/14/19 12:42: Glucometer 110 08/14/19 12:43: White Blood Count 12.0H, Red Blood Count 4.36, Hemoglobin 13.6, Hematocrit 41, Mean Corpuscular Volume 94, Mean Corpuscular Hemoglobin 31, Mean Corpuscular Hemoglobin Concent 33, Red Cell Distribution Width 13.0, Platelet Count 175, Mean Platelet Volume 10.2, Neutrophils (%) (Auto) 72, Lymphocytes (%) (Auto) 19, Monocytes (%) (Auto) 7, Eosinophils (%) (Auto) 2, Basophils (%) (Auto) 0, Neutrophils # (Auto) 8.6H, Lymphocytes # (Auto) 2.3, Monocytes # (Auto) 0.9, Eosinophils # (Auto) 0.2, Basophils # (Auto) 0.0, Lactic Acid Level 1.02 08/14/19 12:49: Blood Gas Puncture Site L RADIAL, Blood Gas Patient Temperature 36.8, Arterial Blood pH 7.41, Arterial Blood Partial Pressure CO2 43, Arterial Blood Partial Pressure O2 80, Arterial Blood HCO3 27, Arterial Blood Total CO2 28.1, Arterial Blood Oxygen Saturation 97, Arterial Blood Base Excess 2.4, Javier Test YES-POS, Blood Gas Ventilator Setting NO, Blood Gas Inspired Oxygen ROOM AIR 08/14/19 12:55: Sodium Level 138, Potassium Level 4.9, Chloride Level 104, Carbon Dioxide Level 26, Anion Gap 8, Blood Urea Nitrogen 18, Creatinine 1.18, Estimat Glomerular Filtration Rate 46, BUN/Creatinine Ratio 15, Glucose Level 100, Calcium Level 9.4, Corrected Calcium 9.4, Total Bilirubin 0.7, Aspartate Amino Transf (AST/SGOT) 26, Alanine Aminotransferase (ALT/SGPT) 18, Alkaline Phosphatase 113, Troponin I < 0.028, Total Protein 6.7, Albumin 4.0 08/14/19 13:10: Urine Color YELLOW, Urine Clarity CLEAR, Urine pH 5.0, Urine Specific [place] 1.020, Urine Protein NEGATIVE, Urine Glucose (UA) NEGATIVE, Urine Ketones NEGATIVE, Urine Nitrite NEGATIVE, Urine Bilirubin NEGATIVE, Urine Urobilinogen 0.2, Urine Leukocyte Esterase NEGATIVE, Urine RBC (Auto) NEGATIVE, Urine RBC NONE, Urine WBC NONE, Urine Squamous Epithelial Cells NONE, Urine Crystals NONE, Urine Bacteria NEGATIVE, Urine Casts NONE, Urine Mucus NEGATIVE, Urine Culture Indicated NO, Urine Opiates Screen NEGATIVE, Urine Oxycodone Screen NEGATIVE, Urine Methadone Screen NEGATIVE, Urine Propoxyphene Screen NEGATIVE, Urine Barbiturates Screen NEGATIVE, Ur Tricyclic Antidepressants Screen NEGATIVE, Urine Phencyclidine Screen NEGATIVE, Urine Amphetamines Screen NEGATIVE, Urine Methamphetamines Screen NEGATIVE, Urine Benzodiazepines Screen POSITIVEH, Urine Cocaine Screen NEGATIVE, Urine Cannabinoids Screen NEGATIVE 08/14/19 14:25: Digoxin Level 0.52L, Salicylates Level < 5.0L, Acetaminophen Level < 10L, Serum Alcohol < 10 08/14/19 17:10: Prothrombin Time 26.8H, INR Comment 2.4H, Activated Partial Thromboplast Time 65H, D-Dimer 0.26 08/15/19 04:15: White Blood Count 8.3, Red Blood Count 4.30L, Hemoglobin 13.2, Hematocrit 40, Mean Corpuscular Volume 93, Mean Corpuscular Hemoglobin 31, Mean Corpuscular Hemoglobin Concent 33, Red Cell Distribution Width 12.9, Platelet Count 178, Mean Platelet Volume 10.4, Neutrophils (%) (Auto) 60, Lymphocytes (%) (Auto) 30, Monocytes (%) (Auto) 8, Eosinophils (%) (Auto) 2, Basophils (%) (Auto) 0, Neutrophils # (Auto) 5.0, Lymphocytes # (Auto) 2.5, Monocytes # (Auto) 0.7, Eosinophils # (Auto) 0.2, Basophils # (Auto) 0.0, Sodium Level 142, Potassium Level 3.9, Chloride Level 108H, Carbon Dioxide Level 25, Anion Gap 9, Blood Urea Nitrogen 14, Creatinine 0.97, Estimat Glomerular Filtration Rate 57, BUN/Creatinine Ratio 14, Glucose Level 91, Calcium Level 9.0, Corrected Calcium 9.3, Total Bilirubin 1.6H, Aspartate Amino Transf (AST/SGOT) 19, Alanine Aminotransferase (ALT/SGPT) 15, Alkaline Phosphatase 105, Total Protein 5.8L, Albumin 3.6, Triglycerides Level 94, Cholesterol Level 138, LDL Cholesterol Direct 82, VLDL Cholesterol 19, HDL Cholesterol 43 Microbiology 08/14/19 Influenza Types A,B Antigen (NADIA) - Final, Complete Assessment/Plan Assessment/Plan Assess & Plan/Chief Complaint Mental status change. A. fib. Renal insufficiency resolved. Clinical Quality Measures Admission Status Admission Dx Acute mental status change. A. fib. Confusion. Weakness. CAD. DVT/VTE Risk/Contraindication: Risk Factor Score Per Nursin RFS Level Per Nursing on Admit: 4+=Very High ROSIBEL BARRIGA DO Aug 15, 2019 07:28
[2019-08-15 07:38] VITALS: BP 162/89
[2019-08-15] MEDS ORDERED: FLUT16SP22 NS (08:40)
[2019-08-15] MEDS ORDERED: FURO20TA4 PO ×2 (08:40→08:47)
[2019-08-15] MEDS ORDERED: ALPR0.254 PO (08:40)
--- NOTE | 2019-08-15 08:53 | NUR ---
SPOKE WITH THE PATIENT ABOUT HER MEDICATIONS. WE WENT OVER THE EXT MED HX AND SHE VERIFIED HOW SHE TAKES EACH MEDICATION. HER LASIX WAS FILLED 20MG #90 06-09-19 HOWEVER SHE STATES IT HAS BEEN INCREASED TO ALTERNATE EVERY OTHER DAY 20MG AND 40MG. SHE IS PAST DUE FOR REFILL ON HER PAXIL 40MG - LAST FILLED #30 06-13-19 AT [facility]. SHE STATES SHE FORGETS TO HAVE IT REFILLED AND PREFERS 90 DAY SUPPLIES. SHE REPORTS SHE STILL HAS ZOFRAN ON HAND AT HOME IF NEEDED. OTC MEDS: ZYRTEC DAILY PRN AZO 2 DAILY MTV DAILY MIRALAX PRN SHE STATES SHE NO LONGER TAKES POTASSIUM BECAUSE IT UPSETS HER STOMACH. SHE DOES NOT TAKE DEPAKOTE ANYMORE BECAUSE SHE HAS NOT BEEN ABLE TO GET IT PRESCRIBED TO HER SINCE SHE MOVED HERE. I REMOVED THESE FROM THE MED REC AT THIS TIME.
--- NOTE | 2019-08-15 10:01 | ST Dysphagia Evaluation ---
Speech Evaluation-General Medical Diagnosis Mental Status Change Onset Date: Aug 14, 2019 Therapy Diagnosis Therapy Diagnosis: Oropharyngeal Dysphagia Precautions Precautions: Aspiration Referral Referring Physician: Dr. Duron Reason for Referral: Evaluation/Treatment Medical History Reviewed History: Yes Speech PLF/Current-Dysphagia Prior Level of Function Patient reported receiving previous ST services for dysphagia approximately 2 years ago. Subjective Patient was alert, cooperative, and pleasant for all evaluation tasks. Patient reported that she often feels mucus, liquid, and food get stuck in her throat during meal times. Patient was lying upright in her bed for the duration of the evaluation. Cognitive Status Patient Orientation: Person, Place, Time, Eyes Open, Normal For Age Oral Motor Skills Dentition: Natural Current Food Consistancy: Regular Ability to Follow Directions: Good Voice Voice Phonatory-Based Quality: Normal Voice Pitch: Normal Voice Loudness: Normal Face Facial Symmetry: Symmetrical Dysphagia Evaluation Consistencies Presented: Thin Liquid, Mechanical Soft, Pureed Dietary Recommendations: Mechanical Soft Liquid Recommendations: Thin Swallowing Precautions: Alternate Liquids/Solids, Double Swallow, Decreased Bolus 1/2 Tsp, Liquids from Straw, Small Bites and Sips, Sitting Upright 90 Degrees, Sitting 90 Degrees 30 Post Intake Dysphagia Evaluation Summary Patient was admitted to the acute floor s/p mental status change. Patient was presented thin liquids via 1/2 tsp spoon and straw with no s/s or penetration/aspiration. Patient was then presented with puree and mechanical soft consistencies via 1/2 tsp spoon and presented with no s/s of pe netration/aspiration. It is recommended that patient receive a DYSPHAGIA II diet with thin liquids. Patient is to utilize compensatory strategies of sitting upright, alternating liquids and solids, and small bites and sips during meal time to promote safe and efficient swallow function. Additionally, it is recommended that the patient be referred for a Modified Barium Swallow Study to assess any underlying deficits or aspiration that can not be detected via BDE. Barriers to Learning Current medical status. Speech Short Term Goals Short Term Goals Short Term Goals 1. Patient will tolerate least restrictive diet without s/s of aspiration at 90%. 2. Patient will utilize compensatory strategies as trained at 90% with minimal cues. Speech Lock[employer] El[employer] Operator Goals Correction Goals Patient will maintain adequate nutrition/hydration via safe and effective swallow function. Speech-Plan Patient/Family Goals Patient/Family Goals: Patient reports that she wishes to return home to prior level of independence. Treatment Plan Speech Therapy Treatment Plan: Continue Plan of Care Patient is to receive a MBS. Treatment Duration: Aug 18, 2019 Frequency: 2 times per week Estimated Hrs Per Day: .25 hour per day Rehab Potential: Good Barriers to Learning: Current medical status Pt/Family Agrees to Plan: Yes Safety Risks/Education Teaching Recipient: Patient Teaching Methods: Demonstration Response to Teaching: Verbalize Understanding Education Topics Provided: Patient was provided education on utilization of compensatory strategies during meal time. Time Speech Therapy Time In: 08:15 Speech Therapy Time Out: 08:30 Total Billed Time: 15 Billed Treatment Time DaisyRIKKI BETHANIA ST Aug 15, 2019 10:01
--- NOTE | 2019-08-15 11:00 | NUR ---
CALLED DR BARRIGA. THEY ARE NOT ABLE TO DO THE MRI. THE PATIENT HAS A PACEMAKER. THE REP HAS TO BE HERE TO PUT IT IN PACED MODE, PATIENT WILL NEED CLEARANCE FROM [facility], THE RADIOLOGY NURSE IS NOT HERE TO TODAY TO SET IT ALL UP. CANCEL THE MRI PER DR BARRIGA. HOME MEDICATIONS REVIEWED WITH DR BARRIGA. SOME RESTARTED AND SOME ON HOLD.
[2019-08-15] MEDS ORDERED: PROPYLENE GLYCOL OU PRN (11:30)
[2019-08-15] MEDS ORDERED: ONDANSETRON 4 MG (ZOFRAN) ORAL DISSOLVE TAB PO PRN (11:30)
[2019-08-15] MEDS ORDERED: [UNRECOGNIZED DRUG - OTHER] OU PRN (11:30)
[2019-08-15] MEDS ORDERED: FUROSEMIDE 20 MG (LASIX) TAB PO SCH (11:30)
[2019-08-15] MEDS ORDERED: GLYCERIN OU PRN (11:30)
[2019-08-15 11:44] VITALS: BP 124/61
[2019-08-15] MEDS ORDERED: ARTIFICAL TEARS 0.4 ML UNIT DOSE (REFRESH PLUS) OU PRN (11:45)
[2019-08-15] MEDS: 1/2 NS IV SOLUTION 1,000 ML IV SCH (12:06)
[2019-08-15] MEDS: RIVAROXABAN 20 MG TABLET (XARELTO) PO SCH (12:14)
[2019-08-15] MEDS: lisINopril 5 MG (PRINIVIL) TABLET PO SCH (12:15)
[2019-08-15 16:09] VITALS: BP 125/60
[2019-08-15] MEDS ORDERED: ACETAMINOPHEN 500 MG TAB (TYLENOL) PO PRN (18:00)
--- NOTE | 2019-08-15 18:05 | NUR ---
Called Dr. Duron at this time due to pt's headache. Received order for Tylenol.
[2019-08-15 20:17] VITALS: BP 134/72
[2019-08-15] MEDS: ALPRAZolam 0.25 MG (XANAX) TAB PO SCH (20:26)
[2019-08-15] MEDS: meTOprolol TARTRATE 25 MG (LOPRESSOR) TABLET PO SCH (20:27)
[2019-08-15] MEDS ORDERED: PARoxetine 20 MG (PAXIL) TAB PO SCH (21:00)
[2019-08-15] MEDS ORDERED: NON-FORMULARY MEDICATION 1 EA EA (Paroxetine HCl 40 MG) PO SCH (21:00)
[2019-08-15] MEDS ORDERED: traZODone 100 MG (DESYREL) TAB PO SCH (21:00)
[2019-08-16] VITALS: BP 110/53
[2019-08-16 04:00] VITALS: BP 114/79
[2019-08-16] MEDS: 1/2 NS IV SOLUTION 1,000 ML IV SCH (04:50)
--- NOTE | 2019-08-16 07:30 | Progress Note ---
Subjective Time Seen by a Provider: 07:25 Subjective/Events-last exam Patient is stable. Patient ate breakfast. Patient had a modified barium study today. Would like to discharge patient today Focused Exam Lactate Level 08/14/19 12:43: Lactic Acid Level 1.02 Objective Exam Vital Signs Date Time Temp Pulse Resp B/P (MAP) Pulse Ox O2 Delivery O2 Flow Rate FiO2 08/16/19 04:00 36.5 54 20 114/79 (91) 95 Room Air 08/16/19 01:00 70 08/16/19 00:00 36.4 59 20 110/53 (72) 97 Room Air 08/15/19 20:17 36.8 62 18 134/72 (92) 96 Room Air 08/15/19 20:00 Room Air 08/15/19 19:50 60 08/15/19 16:09 36.6 58 16 125/60 (81) 95 Room Air 08/15/19 13:00 98 08/15/19 11:44 36.6 89 16 124/61 (82) 95 Room Air 08/15/19 08:00 Room Air 08/15/19 07:38 36.5 87 20 162/89 (113) 97 Room Air I & O 08/16/19 07:00 Intake Total 2844 ml Output Total 650 ml Balance 2194 ml Capillary Refill : Less Than 3 Seconds General Appearance: No Apparent Distress, WD/WN HEENT: Normal ENT Inspection Neck: Full Range of Motion, Normal Inspection Respiratory: No Accessory Muscle Use, No Respiratory Distress Cardiovascular: Irregularly Irregular Gastrointestinal: non tender, soft Results Lab Laboratory Tests 08/15/19 07:58: Group A Streptococcus Screen NEGATIVE Microbiology 08/14/19 Influenza Types A,B Antigen (NADIA) - Final, Complete Assessment/Plan Assessment/Plan Assess & Plan/Chief Complaint Mental status change. A. fib. Renal insufficiency resolved. . Mental status change resolved. A. fib. 08/16/2019. Renal insufficiency Clinical Quality Measures Admission Status Admission Dx Acute mental status change. A. fib. Confusion. Weakness. CAD. DVT/VTE Risk/Contraindication: Risk Factor Score Per Nursin RFS Level Per Nursing on Admit: 4+=Very High ROSIBEL BARRIGA DO Aug 16, 2019 07:30
[2019-08-16] MEDS: lisINopril 5 MG (PRINIVIL) TABLET PO SCH (08:38)
[2019-08-16] MEDS: meTOprolol TARTRATE 25 MG (LOPRESSOR) TABLET PO SCH (08:38)
[2019-08-16] MEDS: ALPRAZolam 0.25 MG (XANAX) TAB PO SCH (08:39)
[2019-08-16 08:50] VITALS: BP 104/59
[2019-08-16] MEDS ORDERED: NON-FORMULARY MEDICATION 1 EA EA (Lisinopril 2.5 MG) PO SCH (09:00)
[2019-08-16] MEDS ORDERED: DIGOXIN 0.125 MG (LANOXIN) TAB PO SCH (09:00)
[2019-08-16] MEDS: RIVAROXABAN 20 MG TABLET (XARELTO) PO SCH (10:12)
--- NOTE | 2019-08-16 11:23 | ST Mod Barium Swallow ---
Speech Evaluation-General Medical Diagnosis Mental Status Change Onset Date: Aug 14, 2019 Therapy Diagnosis Therapy Diagnosis: Oropharyngeal Dysphagia Precautions Precautions: Aspiration Referral Referring Physician: Dr. Duron Reason for Referral: Evaluation/Treatment Medical History Reviewed History: Yes Speech Mod Barium Swallow Prior Level of Function Patient reported that she experienced a stroke approximately two years ago and had subsequent ST therapy where they provided tongue strengthening exercises. Oral Motor Skills Dentition Comments: Natural dentition Lingual Protrusion: Normal Lingual ROM: Normal Lingual Strength: Normal Velum: Normal Textures-Lateral View Lateral View Food Presentation: Thin Liquid via Spoon, Thin Liquid via Straw, [place] Liquid via Spoon, Pureed Solids, Ground Solids, Mechanial Soft Solids, Regular Solids Oral Phase Labial Closure: No Impairment (WFL) Bolus Formation Pooling L/R: No Impairment (WFL) Bolus Formation Placement: Minimal Impairment Mastication Rotary Chew: No Impairment (WFL) A/P Lingual Propulsion: No Impairment (WFL) Lingual Movement: No Impairment (WFL) Oral Phase Residue: No Impairment (WFL) Patients oral phase is unremarkable. Pharyngeal Phase Swallow Response: No Impairment (WFL) Base of Tongue: No Impairment (WFL) Epiglottic Movement: No Impairment (WFL) Laryngeal Elevation: No Impairment (WFL) Vallecular Residue: Mild Cleared with multiple swallows. Piriform Sinus Residue: No Impairment (WFL) Laryngeal Penetration: None Aspiration Observations: None Other Pharyngeal Observations: Patients pharyngeal phase demonstrated mild vallecular pooling and residue following ground meat and regular consistencies. Patient cleared residue with subsequent swallows. Esophageal Phase Did not assess Performed-A/P View Not Applicable/Performed Summary/Impressions Oral Phase Impression: Minimal Impairment Patient was admitted to the acute floor s/p mental status change. Patient had initial BDE completed on 08/15/18 where patient reported continued sensation of food and liquids being stuck in her throat. Patient reported that she has not eaten much today. Patient was administered thin liquid consistency via 1/2 tsp spoon and demonstrated premature spillage into the vallecula. Patient cleared vallecular pooling with subsequent swallows. Patient was then presented with n ectar thickened liquids via 1/2 tsp spoon and demonstrated no s/s of penetration/aspiration. Patient was then presented puree, mechanical soft, ground meat, and cracker consistencies via 1/2 tsp spoon and presented with no s/s of penetration/aspiration. Patient presented with mild pharyngeal reside with ground meat and cracker consistencies, however cleared with subsequent swallows. It is recommended that the patient receive a DYSPHAGIA III diet with nectar thickened liquids. Patient will also utilize compensatory strategies of sitting uptight, alternating solids and liquids, and multiple swallows during all meal times. Speech Short Term Goals Short Term Goals Short Term Goals 1. Patient will tolerate least restrictive diet without s/s of aspiration at 90%. 2. Patient will utilize compensatory strategies as trained at 90% with minimal cues. Speech [employer] Goals Shelter Goals Patient will maintain adequate nutrition/hydration via safe and effective swallow function. Speech-Plan Patient/Family Goals Patient/Family Goals: Patient reports that she wishes to return home to previous level of independence. Treatment Plan Speech Therapy Treatment Plan: Continue Plan of Care Treatment Duration: Aug 18, 2019 Frequency: 2 times per week Estimated Hrs Per Day: .25 hour per day Rehab Potential: Good Barriers to Learning: Current medical status Pt/Family Agrees to Plan: Yes Safety Risks/Education Teaching Recipient: Patient Teaching Methods: Demonstration, Discussion Response to Teaching: Verbalize Understanding Education Topics Provided: Importance of utilizing compensatory strategies during all meal times to increase safe and effective swallow function. Time Speech Therapy Time In: 10:30 Speech Therapy Time Out: 11:00 Total Billed Time: 30 Billed Treatment Time 1, MOD YORDAN King Aug 16, 2019 11:23
[2019-08-16] MEDS ORDERED: FUROSEMIDE 20 MG (LASIX) TAB PO SCH (11:30)
--- NOTE | 2019-08-16 12:03 | Diagnostic Imaging Report ---
INDICATION: Impaired swallowing. Study was performed in conjunction with speech pathology. Video fluoroscopy was performed during swallowing of multiple consistencies. Patient ingested thin, nectar, puree, mechanical soft as well as ground beef and cracker consistency. A total of 1 minute 35 seconds of fluoroscopic time was utilized. The oral phase is unremarkable. There is early spillover identified with multiple consistencies. There is normal epiglottic tilt and laryngeal elevation. No penetration or aspiration was observed. There is mild vallecular residue noted which would not clear with a 2nd swallow. IMPRESSION: Mild spillover and vallecular residue, as described above. No penetration or aspiration was observed. Dictated by: Dictated on workstation # [id number]
[2019-08-16 12:24] VITALS: BP 137/60
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
== END 2019-08-16 14:50 | disposition home or self-care (01) ==
LOC: EDUNIT# 12:05 → ER 12:06 → 4TH 15:06
PROVIDERS: ADMIT Family Medicine; ATTEND Family Medicine
DX: R41.82 Altered mental status, unspecified (principal); I48.91 Unspecified atrial fibrillation; I25.10 Atherosclerotic heart disease of native coronary artery without angina pectoris; R53.1 Weakness; R41.0 Disorientation, unspecified; J44.9 Chronic obstructive pulmonary disease, unspecified; E03.9 Hypothyroidism, unspecified; Z88.2 Allergy status to sulfonamides; Z88.5 Allergy status to narcotic agent; Z79.82 Long term (current) use of aspirin; Z79.01 Long term (current) use of anticoagulants; Z79.899 Other long term (current) drug therapy; Z95.0 Presence of cardiac pacemaker
CPT/HCPCS: 36415; 36600; 51702; 70450; 71045; 74230; 80053; 80061; 80162; 80306; 80320; 80329; 81000; 82805; 82962; 83605; 84484; 85025; 85379; 85610; 85730; 87040; 87430; 87804; 93005; 93041; 96360; G0378

== ENCOUNTER 2019-09-06 15:13 | Observation (INO) | payer MEDICAID, MEDICARE ==
[~2019-09-06] VITALS: Ht 165 cm; Wt 100.6 kg
[~2019-09-06 15:13] MED LIST changes: +ALPR0.254 PO; +FLUT16SP22 NS; +FURO20TA4 PO; +ONDANSETRON 4 MG/2 ML (SDV) Z0FRAN ONE; -TRAZ-190 PO; +TRAZ-227 PO
[2019-09-06] MEDS ORDERED: NS IV 1000 ML 1,000 ML IV SCH ×2 (15:19→16:04)
[2019-09-06] MEDS ORDERED: SCOPOLAMINE 1.5 MG (TRANSDERM-SCOP) PATCH ONE (15:21)
[2019-09-06] MEDS ORDERED: SCOPOLAMINE 1.5 MG (TRANSDERM-SCOP) PATCH TD ONE (15:30)
[2019-09-06] MEDS ORDERED: ONDANSETRON 4 MG/2 ML (SDV) Z0FRAN IVP ONE ×2 (15:30)
[2019-09-06 15:41] LABS: BASOPHILS % (AUTO) 0 % (0-10); EOSINOPHILS # (AUTO) 0.1 10^3/uL (0.0-0.3); EOSINOPHILS % (AUTO) 1 % (0-10); HEMATOCRIT 44 % (35-52); HEMOGLOBIN 14.9 G/DL (11.5-16.0); LYMPHOCYTES # (AUTO) 2.6 X 10^3 (1.0-4.0); LYMPHOCYTES % (AUTO) 30 % (12-44); MEAN CORPUSCULAR HEMOGLOBIN 30 PG (25-34); MEAN CORPUSCULAR HGB CONC 34 G/DL (32-36); MEAN CORPUSCULAR VOLUME 89 FL (80-99); MEAN PLATELET VOLUME 10.4 FL (7.4-10.4); MONOCYTES # (AUTO) 0.7 X 10^3 (0.0-1.0); MONOCYTES % (AUTO) 8 % (0-12); NEUTROPHILS # (AUTO) 5.3 X 10^3 (1.8-7.8); NEUTROPHILS % (AUTO) 60 % (42-75); PLATELET COUNT 228 10^3/uL (130-400); RED CELL DISTRIBUTION WIDTH 12.9 % (10.0-14.5); WHITE BLOOD COUNT 8.7 10^3/uL (4.3-11.0)
[2019-09-06 15:45] LABS: BILIRUBIN,URINE NEGATIVE (NEGATIVE); CLARITY,URINE CLEAR; COLOR,URINE YELLOW; GLUCOSE, URINE (UA) NEGATIVE (NEGATIVE); KETONES,URINE NEGATIVE (NEGATIVE); LEUKOCYTE ESTERASE ,URINE NEGATIVE (NEGATIVE); NITRITE,URINE NEGATIVE (NEGATIVE); PH,URINE 5.5 (5-9); PROTEIN,URINE NEGATIVE (NEGATIVE)
[2019-09-06 15:55] LABS: BACTERIA,URINE TRACE /HPF; RBC,URINE RARE /HPF; SQUAMOUS EPITHELIAL CELL,UR RARE /HPF
[2019-09-06 15:57] LABS: AMPHETAMINE SCREEN, URINE NEGATIVE (NEGATIVE); BARBITURATE SCREEN URINE NEGATIVE (NEGATIVE); BENZODIAZEPINES SCREEN URINE POSITIVE (NEGATIVE); CANNABINOID SCREEN, URINE NEGATIVE (NEGATIVE); COCAINE SCREEN URINE NEGATIVE (NEGATIVE); METHADONE STAT NEGATIVE (NEGATIVE); METHAMPHETAMINE SCREEN URINE S NEGATIVE (NEGATIVE); OPIATE SCREEN URINE NEGATIVE (NEGATIVE); OXYCODONE STAT NEGATIVE (NEGATIVE); PROPOXYPHENE STAT NEGATIVE (NEGATIVE); TRICYCLIC ANTIDEPRESSANTS SCRE NEGATIVE (NEGATIVE)
[2019-09-06 16:03] LABS: ALANINE AMINOTRANSFERASE 20 U/L (0-55); ALBUMIN 4.3 GM/DL (3.2-4.5); ALKALINE PHOSPHATASE 110 U/L (40-136); AMYLASE 62 U/L (25-125); BILIRUBIN,TOTAL 0.8 MG/DL (0.1-1.0); BUN/CREATININE RATIO 14; CALCIUM 9.7 MG/DL (8.5-10.1); CARBON DIOXIDE 23 MMOL/L (21-32); CHLORIDE 107 MMOL/L (98-107); CREATININE SERUM 1.29 MG/DL (0.60-1.30); GFR ESTIMATED 41; GLUCOSE 122 MG/DL (70-105); LIPASE 32 U/L (8-78); MAGNESIUM 1.9 MG/DL (1.6-2.4); SODIUM 142 MMOL/L (135-145); TOTAL PROTEIN 7.2 GM/DL (6.4-8.2)
[2019-09-06 16:09] LABS: ACETAMINOPHEN < 10 UG/ML (10-30)
[2019-09-06 16:12] LABS: INR 1.4 (0.8-1.4)
--- NOTE | 2019-09-06 16:12 | NUR ---
Report given to Dominic Moreno RN.
--- NOTE | 2019-09-06 16:14 | Diagnostic Imaging Report ---
INDICATION: Fall and right shoulder pain. TIME OF EXAM: 4:05 p.m. Three views of the right shoulder were obtained. FINDINGS: Glenohumeral and acromioclavicular alignment is normal. No fracture or dislocation is seen. Pacemaker battery pack does overlie the right axilla. IMPRESSION: No acute bony abnormality is detected. Dictated by: Dictated on workstation # [id number]
--- NOTE | 2019-09-06 16:17 | Diagnostic Imaging Report ---
INDICATION: Fall. TIME OF EXAM: 04:04 p.m. COMPARISON: Correlation is made with prior chest radiograph from 08/14/2019. FINDINGS: Single lead right-sided cardiac pacer remains in place. Lungs are clear. The pulmonary vascularity is normal. There is some elevation of right hemidiaphragm. No infiltrate, effusion or pneumothorax is seen. IMPRESSION: No acute cardiopulmonary process is detected. Dictated by: Dictated on workstation # [id number]
--- NOTE | 2019-09-06 16:20 | Diagnostic Imaging Report ---
PROCEDURE: CT head, face, and cervical spine without contrast. TECHNIQUE: Multiple contiguous axial images were obtained through the head, neck, and facial bones without the use of intravenous contrast. Sagittal and coronal reformations through the cervical spine and facial bones were also performed. Auto Exposure Controls were utilized during the CT exam to meet ALARA standards for radiation dose reduction. INDICATION: Found unresponsive. COMPARISON: Correlation is made with prior head CT from 08/14/2019. FINDINGS: CT head: Ventricles and sulci are within normal limits. No sulcal effacement or midline shift is identified. No acute intra-axial or extra-axial hemorrhage is detected. Cisterns are patent. Visualized paranasal sinuses are clear. IMPRESSION: No acute intracranial process is detected. CT cervical spine: Curvature and alignment is within normal limits. No fracture or subluxation is seen. Odontoid is intact. IMPRESSION: No acute bony abnormality is detected. CT face: The mandible is intact. Zygomatic arches are intact. Maxillary sinus bianchi as well as the orbital bianchi appear to be intact. No fractures are seen. Visualized paranasal sinuses are clear. No nasal bone fracture is seen. IMPRESSION: No facial bone fracture is identified. Dictated by: Dictated on workstation # [id number]
[2019-09-06 16:25] LABS: TSH (THYROID ANALYZER) 1.75 UIU/ML (0.35-4.94)
--- NOTE | 2019-09-06 16:28 | Diagnostic Imaging Report ---
CLINICAL INDICATION: Patient was found on floor unresponsive. Evaluate for possible trauma. EXAM: Axial CT scan of the thoracic and lumbar spine performed without IV contrast. Sagittal and coronal reformations were performed. Bone and soft tissue windows were created. Auto Exposure Controls were utilized during the CT exam to meet ALARA standards for radiation dose reduction. COMPARISON: None. FINDINGS: There is no acute thoracic or lumbar fracture. There is grade 1 anterolisthesis of L4 on L5 and L5 on S1 with no pars defects seen and is likely degenerative. There is chronic Schmorl's node involving the upper endplate of the L1 vertebra. There are hypertrophic spurs and flowing osteophytes seen in the [id number] thoracic region which could be seen with DISH. There is severe bilateral L4-L5 and L5-S1 neuroforamen narrowing due to facet arthropathy and diffuse disc bulges. Remainder of the thoracic and lumbar spine show degenerative changes as well. There is mild atelectasis involving both lungs. There is no significant paraspinal soft tissue abnormality. IMPRESSION: 1: There is no acute thoracic or lumbar spine fracture. 2: There is multilevel thoracic and lumbar spine degenerative disease including grade 1 anterolisthesis of L4 on L5 and L5 on S1 with no pars defects seen. Dictated by: Dictated on workstation # [id number]
[2019-09-06] MEDS ORDERED: HOLD METFORMIN - RECEIVED CONTRAST 20 ML VIAL IV SCH (16:30)
[2019-09-06] MEDS ORDERED: NS 100 ML (IVPB) BAG IV ONE (16:30)
[2019-09-06] MEDS ORDERED: IOHEXOL 350 MG/ML 100 ML (OMNIPAQUE 350) VIAL IV ONE (16:30)
[2019-09-06] MEDS ORDERED: KETOROLAC 30 MG/ML VIAL IVP STA (16:41)
--- NOTE | 2019-09-06 16:45 | Diagnostic Imaging Report ---
CT TANNER CHEST/NOANG ABD-PELV W Technique: CTA imaging of the chest was performed with IV contrast. 3-D MIP reformats are created and submitted. Postcontrast imaging of the abdomen and pelvis was then performed. Automatic exposure controls were utilized to keep dose as low as reasonably achievable. Indication: Syncope. Found on floor unresponsive. Comparison: None available. CTA CHEST FINDINGS: No pulmonary emboli. No features right ventricular strain or pulmonary hypertension. Normal caliber thoracic aorta. No features of aortic dissection. Heart is mildly enlarged. No pericardial effusion. Visualized thyroid is normal. No subclavicular or axillary lymphadenopathy. Mildly enlarged right hilar lymph node measuring 1.0 cm in short axis. No mediastinal or juxtaphrenic lymphadenopathy. No endoluminal nodule within the trachea. No pulmonary mass or features of laceration. No concerning pulmonary nodule. No sternal fracture. No acute rib fracture. No fracture of the thoracic vertebrae. IMPRESSION: 1. No pulmonary emboli or acute aortic syndrome. 2. No acute pulmonary pathology. CT ABDOMEN AND PELVIS: FINDINGS: No free intraperitoneal air or fluid. The liver enhances normally without mass lesion. No features of laceration or subcapsular hematoma involving the liver or spleen. Pancreas is normal. No adrenal mass. Kidneys enhance normally without solid mass or obstruction. No features of urinary bladder injury. Urinary bladder is decompressed by Mak catheter. Stomach is filled with fluid and there is no wall thickening. No dilated loops of bowel to indicate bowel obstruction. No pericolonic inflammation. No abdominal or pelvic lymphadenopathy. Normal caliber abdominal aorta without dissection. Schmorl's node involving the superior endplate of L1. IMPRESSION: 1. No acute traumatic injury in the abdomen or pelvis. 2. No inflammatory or obstructive process. Dictated by: Dictated on workstation # [id number]
--- NOTE | 2019-09-06 17:27 | ED General ---
General Chief Complaint: Altered Mental Status Stated Complaint: SYNCOPE Nursing Triage Note: EMS advised that the patient was found by care takers face down on the floor of her residence. Care takers were on scene with the patient but did not witness the fall. Patient is responsive to painful and verbal stimuli but is a poor historian of events leading up to the fall. Nursing Sepsis Screen: No Definite Risk Source of Information: EMS Exam Limitations: Other (PT IS CONFUSEDO ON ARRIVAL) History of Present Illness Date Seen by Provider: Sep 06, 2019 Time Seen by Provider: 15:10 Initial Comments PT ARRIVES VIA EMS FROM HER APARTMENT AT [facility]--NO IMMOBILIZATION PT HAD UNWITNESSED SYNCOPAL EPISODE--PT WAS FOUND UNRESPONSIVE, FACE DOWN ON THE FLOOR WITH A CHAIR OVERTURNED BESIDE HER. PT HAS "CARETAKERS" BUT THEY WERE NOT PRESENT AT THE TIME OF THE INCIDENT, BUT FOUND HER IN THE ABOVE CONDITION. EMS REPORT THAT PT HAS PACEMAKER AND PT HAS BEEN IN AND OUT OF ATRIAL FIBRILLATION, PACED AT TIMES, BUT OVERALL RATE HAS BEEN NORMAL BP IN 130'S/SYSTOLIC BLOOD GLUCOSE 115 O2 SATS IN UPPER 90'S ON ROOM AIR EMS ALSO REPORT THAT RIGHT SHOULDER WAS VERY PAINFUL TO PALPATION. EMS REPORT THAT PT HAD VOICED TO THEM THAT SHE "HURT ALL OVER" PT IS RESPONSIVE TO VERBAL AND PAINFUL STIMULI ON ARRIVAL,BUT PT KEEPS EYES CLOSED, MOST OF THE TIME. DOES OPEN THEM TO VOICE PT DOES APPEAR TO BE SOMEWHAT CONFUSED, APPEARS TO HAVE SLIGHTLY SLURRED SPEECH AND TO HAVE SOME MILD EXPRESSIVE APHASIA ON ARRIVAL PT STATES SHE "DOESN'T HAVE A DR HERE YET", YET WHEN ASKED WHERE SHE WAS, STATES SHE IS IN [place] AND HER DR IS DR. LUNA--MOVED HERE FROM [place], [place] WHEN ASKED HER BIRTHDAY, SHE STATES "OCTOBER" PT ALSO STATES "I DON'T HAVE NO VEINS" ON ARRIVAL, WHEN ER STAFF STARTING TO START IV PT WITH GENERALIZED WEAKNESS ON ARRIVAL AND UNABLE TO LIFT HER HEAD OR ANY OF HER EXTREMITIES OR MOVE ANY PART OF HER BODY ON ARRIVAL SHORTLY AFTER ARRIVAL, PT BEGAN TO VOMIT AND HAVE DRY HEAVES GIVEN ZOFRAN AND SCOPOLAMINE PATCH WITH RESOLUTION OF SYMPTOMS PT WAS HERE 08/14/19-08/16/19 FOR SAME SYMPTOMS PT HAS BEEN HERE 4 TIMES SINCE SHE MOVED HERE IN [place]. HAS HAD REPORTED MU LTIPLE SYNCOPAL EPISODES ON PREVIOUS ADMITS PT HAS BEEN SEEN BY DR. RIGGS, AND ON PREVIOUS INTERROGATIONS OF HER PACEMAKER, IT HAS SHOWN ATRIAL FIBRILLATION WITH BRIEF EPISODES OF RVR. PT IS ON ELIQUIS AND DIGOXIN, IN ADDITION TO LISINOPRIL, METOPROLOL SHE IS ALSO ON XANAX AND TRAZADONE, AND ULTRAM PER OLD RECORDS PCP: DR. BARRIGA, PER MEDICATION LIST AND OLD RECORDS Allergies and Home Medications Allergies Coded Allergies: Sulfa (Sulfonamide Antibiotics) (Verified Allergy, Unknown, 04/26/19) morphine (Verified Allergy, Unknown, 04/26/19) Home Medications Alprazolam 0.25 Mg Tablet, 0.25 MG PO BID, (Reported) Celecoxib 200 Mg Capsule, 200 MG PO BID, (Reported) Cetirizine HCl 10 Mg Tablet, 10 MG PO DAILY PRN for ALLERGIES, (Reported) Cranberry Conc/C/Bacill Coag 1 Each Tablet, 2 TAB PO DAILY, (Reported) Digoxin 125 Mcg Tablet, 125 MCG PO DAILY, (Reported) Fluticasone Propionate 16 Gm Keyser.susp, 2 SPRAYS NS DAILY PRN for ALLERGIES, (Reported) Folic Acid/Mv,Fe,Other Min 1 Each Tablet, 1 TAB PO DAILY, (Reported) Furosemide 20 Mg Tablet, 20 MG PO Q48H, (Reported) ALTERNATES WITH 2 TABS EVERY OTHER DAY Furosemide 20 Mg Tablet, 40 MG PO Q48H, (Reported) ALTERNATES EVERY OTHER DAY WITH 1 TABLET Glycerin/Propylene Glycol 15 Ml Drops, 1 DROP OU TID PRN for DRY EYES, (Reported) Lisinopril 2.5 Mg Tablet, 2.5 MG PO DAILY, (Reported) Metoprolol Tartrate 25 Mg Tablet, 12.5 MG PO BID, (Reported) TAKES 1/2 (25MG) TABLET Ondansetron 4 Mg Tab.rapdis, 4 MG PO Q4H PRN for NAUSEA/VOMITING-1ST LINE, (Reported) Paroxetine HCl 40 Mg Tablet, 40 MG PO HS, (Reported) LAST FILLED #30 06-13-19 Polyethylene Glycol 3350 17 Gm Powd.pack, 17 GM PO DAILY PRN for CONSTIPATION- 2ND LINE, (Reported) Rivaroxaban 20 Mg Tablet, 20 MG PO 1000, (Reported) Trazodone HCl 100 Mg Tablet, 100-200 MG PO HS, (Reported) Patient Home Medication List Home Medication List Reviewed: Yes Review of Systems Review of Systems Constitutional: malaise, weakness Cardiovascular: syncope Gastrointestinal: see HPI Psychiatric/Neurological: See HPI Past Avhplro-Ltczci-Kqauhu Hx Past Med/Social Hx: Reviewed and Corrections made Patient Social History Alcohol Use: Denies Use Recreational Drug Use: No Smoking Status: Never a Smoker 2nd Hand Smoke Exposure: No Recent Foreign Travel: No Contact w/Someone Who Travel: No Recent Infectious Disease Expo: No Recent Hopitalizations: Yes (08/14-08/16/19 FOR POSSIBLE TIA) Immunizations Up To Date Date of Influenza Vaccine: Apr 17, 2019 Seasonal Allergies Seasonal Allergies: Yes Past Medical History Surgeries: Yes ("MESH IN RECTAL AREA" PER OLD RECORDS; CARDIAC CATH IN [place]) Adenoidectomy, Appendectomy, Cardiac, Gallbladder, Hysterectomy, Oophorectomy, Pacemaker, Rectal, Tonsillectomy Respiratory: Yes Asthma, COPD Cardiac: Yes (PACEMAKER ([employer]); CHF; NON-ISCHEMIC CARDIOMYOPATHY;CAD-NO INTERVENTION) Atrial Fibrillation, Cardiomyopathy, Coronary Artery Disease, Heart Attack, Hypertension, Irregular Heartbeat, Syncope Neurological: 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 oz. kg; 36.00 BMI Method: General Appearance: WD/WN, Other (MENTATION ABOVE. VERY LETHARGIC, MINIMALLY VERBAL) HEENT: PERRL/EOMI Neck: Full Range of Motion, Normal Inspection, Non Tender, Supple; No Carotid Bruit Respiratory: Chest Non Tender, Normal Breath Sounds, No Accessory Muscle Use, No Respiratory Distress Cardiovascular: No Gallop, No JVD, Normal Peripheral Pulses, Systolic Murmur (?FAINT? ), Irregularly Irregular Gastrointestinal: Normal Bowel Sounds, No Organomegaly, No Pulsatile Mass, Non Tender, Soft Extremity: Pedal Edema (TRACE BILATERALLY), Other (TENDERNESS AND VERY LIMITED ROM OF RIGHT SHOULDER) Neurologic/Psychiatric: Other (MENTATION ABOVE) Skin: Normal Color, Warm/Dry, Other (NO EXTERNAL EVIDENCE OF TRAUMA ANYWHERE ) Focused Exam Lactate Level 09/06/19 15:35: Lactic Acid Level 2.13*H 09/06/19 17:30: Lactic Acid Level Laboratory Tests Test 09/06/19 15:35 09/06/19 17:30 Lactic Acid Level 2.13 MMOL/L (0.50-2.00) *H Progress/Results/Core Measures Suspected Sepsis Recent Fever Within 48 Hours: No Infection Criteria Present: None New/Unexplained Altered Menta: No Sepsis Screen: No Definite Risk SIRS Temperature: Pulse: Respiratory Rate: 14 Laboratory Tests 09/06/19 15:15: White Blood Count 8.7 Blood Pressure 146 /87 Mean: 106 09/06/19 15:35: Lactic Acid Level 2.13*H 09/06/19 17:30: Laboratory Tests 09/06/19 15:15: Creatinine 1.29, INR Comment 1.4, Platelet Count 228, Total Bilirubin 0.8 Results/Orders Lab Results Laboratory Tests Test 09/06/19 15:15 09/06/19 15:30 09/06/19 15:35 09/06/19 16:56 Range/Units White Blood Count 8.7 4.3-11.0 10^3/uL Red Blood Count 4.91 4.35-5.85 10^6/uL Hemoglobin 14.9 11.5-16.0 G/DL Hematocrit 44 35-52 % Mean Corpuscular Volume 89 80-99 FL Mean Corpuscular Hemoglobin 30 25-34 PG Mean Corpuscular Hemoglobin Concent 34 32-36 G/DL Red Cell Distribution Width 12.9 10.0-14.5 % Platelet Count 228 130-400 10^3/uL Mean Platelet Volume 10.4 7.4-10.4 FL Neutrophils (%) (Auto) 60 42-75 % Lymphocytes (%) (Auto) 30 12-44 % Monocytes (%) (Auto) 8 0-12 % Eosinophils (%) (Auto) 1 0-10 % Basophils (%) (Auto) 0 0-10 % Neutrophils # (Auto) 5.3 1.8-7.8 X 10^3 Lymphocytes # (Auto) 2.6 1.0-4.0 X 10^3 Monocytes # (Auto) 0.7 0.0-1.0 X 10^3 Eosinophils # (Auto) 0.1 0.0-0.3 10^3/uL Basophils # (Auto) 0.0 0.0-0.1 10^3/uL Prothrombin Time 18.0 H 12.2-14.7 SEC INR Comment 1.4 0.8-1.4 Activated Partial Thromboplast Time 38 H 24-35 SEC Sodium Level 142 135-145 MMOL/L Potassium Level 4.0 3.6-5.0 MMOL/L Chloride Level 107 98-107 MMOL/L Carbon Dioxide Level 23 21-32 MMOL/L Anion Gap 12 5-14 MMOL/L Blood Urea Nitrogen 18 7-18 MG/DL Creatinine 1.29 0.60-1.30 MG/DL Estimat Glomerular Filtration Rate 41 BUN/Creatinine Ratio 14 Glucose Level 122 H 70-105 MG/DL Calcium Level 9.7 8.5-10.1 MG/DL Corrected Calcium 9.5 8.5-10.1 MG/DL Magnesium Level 1.9 1.6-2.4 MG/DL Total Bilirubin 0.8 0.1-1.0 MG/DL Aspartate Amino Transf (AST/SGOT) 29 5-34 U/L Alanine Aminotransferase (ALT/SGPT) 20 0-55 U/L Alkaline Phosphatase 110 40-136 U/L Myoglobin 76.7 10.0-92.0 NG/ML Troponin I < 0.028 <0.028 NG/ML B-Type Natriuretic Peptide 263.4 H <100.0 PG/ML Total Protein 7.2 6.4-8.2 GM/DL Albumin 4.3 3.2-4.5 GM/DL Amylase Level 62 25-125 U/L Lipase 32 8-78 U/L TSH Irma Testing 1.75 0.35-4.94 UIU/ML Digoxin Level 0.66 L 0.80-2.00 NG/ML Acetaminophen Level < 10 L 10-30 UG/ML Serum Alcohol < 10 <10 MG/DL Urine Color YELLOW Urine Clarity CLEAR Urine pH 5.5 5-9 Urine Specific [place] 1.010 L 1.016-1.022 Urine Protein NEGATIVE NEGATIVE Urine Glucose (UA) NEGATIVE NEGATIVE Urine Ketones NEGATIVE NEGATIVE Urine Nitrite NEGATIVE NEGATIVE Urine Bilirubin NEGATIVE NEGATIVE Urine Urobilinogen 0.2 < = 1.0 MG/DL Urine Leukocyte Esterase NEGATIVE NEGATIVE Urine RBC (Auto) TRACE-I NEGATIVE Urine RBC RARE /HPF Urine WBC NONE /HPF Urine Squamous Epithelial Cells RARE /HPF Urine Renal Epithelial Cells NONE /HPF Urine Crystals NONE /LPF Urine Bacteria TRACE /HPF Urine Casts NONE /LPF Urine Mucus NEGATIVE /LPF Urine Culture Indicated NO Urine Opiates Screen NEGATIVE NEGATIVE Urine Oxycodone Screen NEGATIVE NEGATIVE Urine Methadone Screen NEGATIVE NEGATIVE Urine Propoxyphene Screen NEGATIVE NEGATIVE Urine Barbiturates Screen NEGATIVE NEGATIVE Ur Tricyclic Antidepressants Screen NEGATIVE NEGATIVE Urine Phencyclidine Screen NEGATIVE NEGATIVE Urine Amphetamines Screen NEGATIVE NEGATIVE Urine Methamphetamines Screen NEGATIVE NEGATIVE Urine Benzodiazepines Screen POSITIVE H NEGATIVE Urine Cocaine Screen NEGATIVE NEGATIVE Urine Cannabinoids Screen NEGATIVE NEGATIVE Lactic Acid Level 2.13 *H 0.50-2.00 MMOL/L Glucometer 101 70-110 MG/DL Test 09/06/19 17:30 Range/Units My Orders Orders - KRYSTAL ROBLES DO Ondansetron Injection (Zofran Injectio (09/06/19 15:13) Accucheck Stat ONCE (09/06/19 15:19) Ekg Tracing (09/06/19 15:19) Catheter(Urinary) Insert & Ass 03,15 (09/06/19 15:19) Monitor-Rhythm Ecg Trace Only (09/06/19 15:19) Ct Head/Face/Cervical Wo (09/06/19 15:19) Ct Thoracic/Lumbar Spine Wo (09/06/19 15:19) Chest 1 View, Ap/Pa Only (09/06/19 15:19) Acetaminophen (09/06/19 15:19) Alcohol (09/06/19 15:19) Amylase (09/06/19 15:19) BNP (09/06/19 15:19) Cbc With Automated Diff (09/06/19 15:19) Comprehensive Metabolic Panel (09/06/19 15:19) Digoxin (09/06/19 15:19) Drug Screen Stat (Urine) (09/06/19 15:19) Lactic Acid Analyzer (09/06/19 15:19) Lipase (09/06/19 15:19) Magnesium (09/06/19 15:19) Protime With Inr (09/06/19 15:19) Partial Thromboplastin Time (09/06/19 15:19) Thyroid Analyzer (09/06/19 15:19) Ua Culture If Indicated (09/06/19 15:19) Myoglobin Serum (09/06/19 15:19) Troponin I (09/06/19 15:19) Ed Iv/Invasive Line Start (09/06/19 15:19) Ns Iv 1000 Ml (Sodium Chloride 0.9%) (09/06/19 15:19) Ondansetron Injection (Zofran Injectio (09/06/19 15:30) Scopolamine Patch (Transderm-Scop Patch) (09/06/19 15:30) Ondansetron Injection (Zofran Injectio (09/06/19 15:30) Scopolamine Patch (Transderm-Scop Patch) (09/06/19 15:21) Shoulder, Right, 3 Views (09/06/19 15:32) Ct Vanita Chest/Noang Abd-Pelv W (09/06/19 16:04) Ed Iv/Invasive Line Start (09/06/19 16:04) Ns Iv 1000 Ml (Sodium Chloride 0.9%) (09/06/19 16:04) Iohexol Injection (Omnipaque 350 Mg/Ml 1 (09/06/19 16:30) Received Contrast (Hold Metformin- Contr (09/06/19 16:30) Ns (Ivpb) (Sodium Chloride 0.9% Ivpb Bag (09/06/19 16:30) Ketorolac Injection (Toradol Injection) (09/06/19 16:41) Medications Given in ED Current Medications Medications Dose Ordered Sig/Nicole Route Start Time Stop Time Status Last Admin Dose Admin Iohexol 100 ml ONCE ONCE IV 09/06/19 16:30 09/06/19 16:31 DC 09/06/19 16:21 85 ML Ondansetron HCl 8 mg ONCE ONCE IVP 09/06/19 15:30 09/06/19 15:31 DC 09/06/19 15:38 8 MG Scopolamine 1.5 mg STK-MED ONCE .ROUTE 09/06/19 15:21 09/06/19 15:27 DC 09/06/19 15:37 1.5 MG Sodium Chloride 100 ml ONCE ONCE IV 09/06/19 16:30 09/06/19 16:31 DC 09/06/19 16:21 80 ML Vital Signs/I&O 09/06/19 09/06/19 15:15 17:44 Temp 36.7 Pulse 45 Resp 14 16 B/P (MAP) 146/87 (106) 118/61 (106) Pulse Ox 97 96 O2 Delivery Room Air Room Air Capillary Refill : Less Than 3 Seconds Blood Pressure Mean: 106 Point of Care Testing Finger Stick Blood Glucose: 101 Blood Glucose Action Taken: rn notified Progress Note : Progress Note ON RETURN FROM CT, PT'S FRIEND/"KILN OPERATOR" ( WHO ARRIVES USING A WALKER) IS HERE, AND NOW PT IS AWAKE,ALERT, ORIENTED X 4. SPEECH CLEAR, MENTATION IS NORMAL, MOTOR/SENSORY INTACT--PT CAN RECALL EVENTS JUST PRIOR TO SYNCOPAL EPISODE. PT STATES SHE GOT UP FROM THE TABLE OT GET A ZOFRAN, BECAUSE SHE WAS STARTING TO GET NAUSEATED, THEN THE NEXT THING SHE REMEMBERS IS BEING HERE IN THE ER AND XRAY DEPT. PT C/O SEVERE HEADACHE AND NECK PAIN STATES SHE HAS BEEN HAVING ONGOING DIZZINESS, ESPECIALLY WITH STANDING, AND HEADACHES AND NECK PAIN FOR OVER A MONTH ALSO STATES THAT SHE HAS HAD SEVERE PAIN IN HER RIGHT SHOULDER, AND CANNOT RAISE HER RIGHT ARM, FOR ALMOST A MONTH, NO PARESTHESIAS OR MOTOR DEFICITS NO VISION CHANGES NO CHEST PAIN NO PALPITATIONS NO SHORTNESS OF BREATH WHEN I WAS DISCUSSING TEST RESULTS AND NEED FOR ADMIT FOR FURTHER EVALUATION, AND ADVISED THAT SHE HAD BEEN ESTABLISHED WITH DR. BARRIGA--PT NOW IMMEDIATELY STATES SHE IS NOT GOING TO SEE HIM AGAIN, ADAMANTLY REFUSES TO BE ADMITTED TO HIM, BUT IS AGREEABLE TO BEING ADMITTED TO A DIFFERENT DR. SHE STATES THAT SHE IS TRYING TO GET INTO DR. JAUREGUI, BUT HAS NOT MADE AN APPOINTMENT OR FILLED OUT PAPERWORK TO ESTABLISH WITH HER YET. ECG Initial ECG Impression Date: Sep 06, 2019 Initial ECG Impression Time: 15:31 Initial ECG Rate: 85 Comment ATRIAL FIBRILLATION, WITH WHAT APPEARS TO BE DEMAND VENTRICULAR PACING, WITH MULTIFOCAL PVC'S. Diagnostic Imaging Comments CT HEAD/MAXILLOFACIALS/CERVICAL SPINE--NO ACUTE PROCESS CT THORACIC/LUMBAR SPINE--NO ACUTE PROCESS CXR--NO ACUTE PROCESS XRAYS RIGHT SHOULDER--NO ACUTE PROCESS ALL PER RADIOLOGIST REPORTS AT 1635 CT ANGIOGRAM OF CHEST WITHABDOMEN/PELVIS--NO ACUTE PROCESS, PER RADIOLOGIST REPORT AT 1649 Reviewed: Reviewed by Me Departure Communication (Admissions) 1650--SPOKE WITH DR. ROBLES, HOSPITALIST, ACCEPTS PT FOR ADMIT. WILL CONSULT CARDIOLOGY, DO PACEMAKER INTERROGATION, GET MRI TOMORROW. Impression Primary Impression: Episode of syncope Additional Impressions: Chronic atrial fibrillation VENTICULAR PACEMAKER Closed head injury Right shoulder pain Neck pain Nausea & vomiting Transient confusion Disposition: ADMITTED INPATIENT Condition: Improved Admissions Decision to Admit Reason: Admit from ER (General) Decision to Admit/Date: Sep 06, 2019 Time/Decision to Admit Time: 16:50 Departure-Patient Inst. Referrals: ROSIBEL BARRIGA DO (PCP/Family) Primary Care Physician KRYSTAL ROBLES DO Sep 06, 2019 17:27
[2019-09-06] MEDS ORDERED: ONDANSETRON 4 MG/2 ML (SDV) Z0FRAN IVP PRN (18:30)
[2019-09-06] MEDS ORDERED: SCOPOLAMINE 1.5 MG (TRANSDERM-SCOP) PATCH TOP SCH (18:30)
[2019-09-06 18:37] VITALS: BP 138/65
[2019-09-06] MEDS: D5 1/2 NS 1000 ML IV SOLUTION 1,000 ML IV SCH ×2 (18:54→19:47)
[2019-09-06 19:46] VITALS: BP 142/72
[2019-09-06] MEDS: ACETAMINOPHEN 500 MG TAB (TYLENOL) PO PRN (20:48)
--- NOTE | 2019-09-06 22:00 | NUR ---
PT PUT CALL LIGHT ON AND STATES THAT SHE'S BLEEDING. PT HAD PULLED OUT IV. LINENS CHANGED AND AFTER MULTIPLE ATTEMPTS BY SEVERAL NURSES TO RE-START THE IV, SHE STATES NO MORE. I INFORM PT THAT WE WILL TRY AGAIN LATER, PT AGREEABLE TO THAT
[2019-09-07] VITALS: BP 107/51
--- NOTE | 2019-09-07 03:11 | NUR ---
ERMELINDA VIDEO GAME DESIGNER TO ATTEMPT TO RE-START IV AND OBTAIN LABS, PT STATES "YOU GET ONE STICK". UNABLE TO OBTAIN IV ACCESS
[2019-09-07 04:00] VITALS: BP 129/72
[2019-09-07 04:04] LABS: BASOPHILS % (AUTO) 0 % (0-10); EOSINOPHILS # (AUTO) 0.1 10^3/uL (0.0-0.3); EOSINOPHILS % (AUTO) 2 % (0-10); HEMATOCRIT 41 % (35-52); HEMOGLOBIN 13.6 G/DL (11.5-16.0); LYMPHOCYTES # (AUTO) 2.8 X 10^3 (1.0-4.0); LYMPHOCYTES % (AUTO) 37 % (12-44); MEAN CORPUSCULAR HEMOGLOBIN 30 PG (25-34); MEAN CORPUSCULAR HGB CONC 33 G/DL (32-36); MEAN CORPUSCULAR VOLUME 91 FL (80-99); MEAN PLATELET VOLUME 10.7 FL (7.4-10.4); MONOCYTES # (AUTO) 0.6 X 10^3 (0.0-1.0); MONOCYTES % (AUTO) 8 % (0-12); NEUTROPHILS % (AUTO) 53 % (42-75); PLATELET COUNT 196 10^3/uL (130-400); RED CELL DISTRIBUTION WIDTH 12.7 % (10.0-14.5); WHITE BLOOD COUNT 7.6 10^3/uL (4.3-11.0)
[2019-09-07 04:26] LABS: ALBUMIN 3.7 GM/DL (3.2-4.5); BILIRUBIN,TOTAL 1.1 MG/DL (0.1-1.0); CALCIUM 8.7 MG/DL (8.5-10.1); CREATININE SERUM 1.11 MG/DL (0.60-1.30); POTASSIUM 3.8 MMOL/L (3.6-5.0); TOTAL PROTEIN 6.1 GM/DL (6.4-8.2)
--- NOTE | 2019-09-07 07:29 | NUR ---
DR ROBLES NOTIFIED OF PT'S REFUSAL TO HAVE IV STARTED, NO NEW ORDERS
[2019-09-07 08:00] VITALS: BP 136/77
--- NOTE | 2019-09-07 09:56 | Consultation-Cardiology ---
HPI-Cardiology Cardiology Consultation Date of Consultation 09/07/19 Date of Admission Time Seen by Provider: 08:30 Indication: Syncope, AMS HPI Patient is a 69 y/o female with history of nonobstructive coronary disease, sick sick sinus syndrome/proximal atrial fibrillation, status post permanent pacemaker and plantation, history of orthostatic hypotension. Presented to the ER with complaints of syncope. Patient was found face down on the ground at her home. Reports she was standing up out of her chair to go to the bathroom when she had sudden dizziness and lightheadedness followed by syncopal episode. Denies any chest pain. Patient reports she has been hypotensive for the past several weeks with systolic blood pressure in the 80s. Reports constant numbness to the back of her head and neck pain. No addition she's been complaining of constant right shoulder pain for the past month. Denies any chest pain at this time. Denies any further dizziness or lightheadedness. Telemetry reveals atrial fibrillation with frequent PVCs Home Medications & Allergies Allergies: Coded Allergies: Sulfa (Sulfonamide Antibiotics) (Verified Allergy, Unknown, 04/26/19) morphine (Verified Allergy, Unknown, 04/26/19) Home Medication List Reviewed: Yes [id number] Hx Patient Social History Marital Status: Employed/Student: employed Alcohol Use: Denies Use Recreational Drug Use: No Smoking Status: Never a Smoker 2nd Hand Smoke Exposure: No Recent Foreign Travel: No Recent Infectious Disease Expo: No Recent Hopitalizations: Yes (08/14-08/16/19 FOR POSSIBLE TIA) Immunizations Up To Date Date of Pneumonia Vaccine: Sep 06, 2019 Date of Influenza Vaccine: May 06, 2019 Family Medical History Significant Family History: No Pertinent Family Hx Review of Systems-General Review of Systems Constitutional: see HPI; No chills, No diaphoresis, No fever; malaise, weakness EENTM: see HPI; No hearing loss, No ear pain, No blurred vision, No double vision, No vision loss Respiratory: no symptoms reported, see HPI; No cough, No dyspnea on exertion, No short of breath Cardiovascular: see HPI; No chest pain, No edema, No Hx of Intervention, No palpitations; syncope Gastrointestinal: see HPI; No abdominal pain, No constipation Musculoskeletal: joint pain (right shoulder pain) Skin: No lesions, No rash Psychiatric/Neurological: See HPI Reviewed Test Results Reviewed Test Results Lab Laboratory Tests 09/06/19 15:15: White Blood Count 8.7, Red Blood Count 4.91, Hemoglobin 14.9, Hematocrit 44, Mean Corpuscular Volume 89, Mean Corpuscular Hemoglobin 30, Mean Corpuscular Hemoglobin Concent 34, Red Cell Distribution Width 12.9, Platelet Count 228, Mean Platelet Volume 10.4, Neutrophils (%) (Auto) 60, Lymphocytes (%) (Auto) 30, Monocytes (%) (Auto) 8, Eosinophils (%) (Auto) 1, Basophils (%) (Auto) 0, Neutrophils # (Auto) 5.3, Lymphocytes # (Auto) 2.6, Monocytes # (Auto) 0.7, Eosinophils # (Auto) 0.1, Basophils # (Auto) 0.0, Prothrombin Time 18.0H, INR Comment 1.4, Activated Partial Thromboplast Time 38H, Sodium Level 142, Potassium Level 4.0, Chloride Level 107, Carbon Dioxide Level 23, Anion Gap 12, Blood Urea Nitrogen 18, Creatinine 1.29, Estimat Glomerular Filtration Rate 41, BUN/Creatinine Ratio 14, Glucose Level 122H, Calcium Level 9.7, Corrected Calcium 9.5, Magnesium Level 1.9, Total Bilirubin 0.8, Aspartate Amino Transf (AST/SGOT) 29, Alanine Aminotransferase (ALT/SGPT) 20, Alkaline Phosphatase 110, Myoglobin 76.7, Troponin I < 0.028, B-Type Natriuretic Peptide 263.4H, Total Protein 7.2, Albumin 4.3, Amylase Level 62, Lipase 32, TSH [place] Testing 1.75, Digoxin Level 0.66L, Acetaminophen Level < 10L, Serum Alcohol < 10 09/06/19 15:30: Urine Color YELLOW, Urine Clarity CLEAR, Urine pH 5.5, Urine Specific [place] 1.010L, Urine Protein NEGATIVE, Urine Glucose (UA) NEGATIVE, Urine Ketones NEGATIVE, Urine Nitrite NEGATIVE, Urine Bilirubin NEGATIVE, Urine Urobilinogen 0.2, Urine Leukocyte Esterase NEGATIVE, Urine RBC (Auto) TRACE-I, Urine RBC RARE, Urine WBC NONE, Urine Squamous Epithelial Cells RARE, Urine Renal Epithel ial Cells NONE, Urine Crystals NONE, Urine Bacteria TRACE, Urine Casts NONE, Urine Mucus NEGATIVE, Urine Culture Indicated NO, Urine Opiates Screen NEGATIVE, Urine Oxycodone Screen NEGATIVE, Urine Methadone Screen NEGATIVE, Urine Propoxyphene Screen NEGATIVE, Urine Barbiturates Screen NEGATIVE, Ur Tricyclic Antidepressants Screen NEGATIVE, Urine Phencyclidine Screen NEGATIVE, Urine Amphetamines Screen NEGATIVE, Urine Methamphetamines Screen NEGATIVE, Urine Benzodiazepines Screen POSITIVEH, Urine Cocaine Screen NEGATIVE, Urine Cannabinoids Screen NEGATIVE 09/06/19 15:35: Lactic Acid Level 2.13*H 09/06/19 16:56: Glucometer 101 09/06/19 17:30: Lactic Acid Level 1.45 09/06/19 21:15: Troponin I < 0.028 09/07/19 03:22: White Blood Count 7.6, Red Blood Count 4.50, Hemoglobin 13.6, Hematocrit 41, Mean Corpuscular Volume 91, Mean Corpuscular Hemoglobin 30, Mean Corpuscular Hemoglobin Concent 33, Red Cell Distribution Width 12.7, Platelet Count 196, Mean Platelet Volume 10.7H, Neutrophils (%) (Auto) 53, Lymphocytes (%) (Auto) 37, Monocytes (%) (Auto) 8, Eosinophils (%) (Auto) 2, Basophils (%) (Auto) 0, Neutrophils # (Auto) 4.0, Lymphocytes # (Auto) 2.8, Monocytes # (Auto) 0.6, Eosinophils # (Auto) 0.1, Basophils # (Auto) 0.0, Sodium Level 142, Potassium Level 3.8, Chloride Level 111H, Carbon Dioxide Level 21, Anion Gap 9, Blood Urea Nitrogen 18, Creatinine 1.11, Estimat Glomerular Filtration Rate 49, BUN/Creatinine Ratio 16, Glucose Level 98, Calcium Level 8.7, Corrected Calcium 8.9, Total Bilirubin 1.1H, Aspartate Amino Transf (AST/SGOT) 24, Alanine Aminotransferase (ALT/SGPT) 16, Alkaline Phosphatase 90, Total Protein 6.1L, Albumin 3.7 ECG Impression ECG Initial ECG Rhythm: A Fib/Flutter, PVC Physical Exam Physical Exam Vital Signs Vital Signs - First Documented 09/06/19 09/06/19 15:15 17:44 Temp 36.7 Pulse 45 Resp 14 B/P (MAP) 146/87 (106) Pulse Ox 97 O2 Delivery Room Air Capillary Refill : Less Than 3 Seconds Height, Weight, BMI Height: '" Weight: lbs. oz. kg; 36.73 BMI Method: General Appearance: No Apparent Distress, WD/WN, Other (MENTATION ABOVE. VERY LETHARGIC, MINIMALLY VERBAL) HEENT: PERRL/EOMI Neck: Full Range of Motion, Normal Inspection, Non Tender, Supple; No Carotid Bruit Respiratory: Chest Non Tender, Normal Breath Sounds, No Accessory Muscle Use, No Respiratory Distress Cardiovascular: No Gallop, No JVD, Normal Peripheral Pulses, Systolic Murmur (?FAINT? ), Irregularly Irregular Gastrointestinal: Normal Bowel Sounds, No Organomegaly, No Pulsatile Mass, Non Tender, Soft Back: No CVA Tenderness Extremity: Pedal Edema (TRACE BILATERALLY), Other (TENDERNESS AND VERY LIMITED ROM OF RIGHT SHOULDER) Neurologic/Psychiatric: Alert, No Motor/Sensory Deficits, dial maker II-XII Norm as Tested Skin: Normal Color, Warm/Dry, Other (NO EXTERNAL EVIDENCE OF TRAUMA ANYWHERE ) A/P-Cardiology Admission Diagnosis Syncope TIA-like symptoms CAD PAF Assessment/Plan Syncope, likely secondary to orthostatic hypotension. Has had history of syncope with multiple episodes or orthostatic hypotension. Patient reports she has been hypotensive at home for the past several weeks with SBP in the 80's. I will d/c home Lasix and lisinopril. Obtain PPM interrogation, continue to monitor on telemetry. TIA-like symptoms with AMS, now resolved. Was hospitalized earlier this month for similar symptoms. CT head negative, evaluate MRI. I will d/c Xarelto and start Pradaxa 150mg BID. Coronary artery disease, multiple interventions in the past, last cardiac catheterization was done in February 2019 in [place] reported as nonobstructive disease with 40-50 percent stenosis in the proximal LAD, with mildly reduced cardiac output but no significant obstructive disease. Continue to monitor Congestive heart failure, last echo was done in April 2019 showing ejection fraction 55-65 percent, moderate mitral regurgitation, moderate aortic regurgitation, moderate to severe tricuspid regurgitation, PA pressure was not measured. Continue to monitor History of permanent pacemaker Medtronic, had it on the left side and it was infected, replaced in August 2018, I will obtain full interrogation. Paroxysmal atrial fibrillation, appearts to be more persistent afib at this time, maintained on Xarelto, I will change to Pradaxa 150mg BID. EKG reveals atrial fibrillation, rate controlled. Right shoulder pain- management per medical services. Hypertension, currently borderline hypotensive. Continue to monitor. Hyperlipidemia, monitor lipids as outpatient. Gastroesophageal reflux disease maintained on PPI and Carafate. Anxiety, depression Thank you for allowing us to participate in the management of Ms. Gore, this is Yumiko Santiago PA-C, as a scribe for Dr. Fitzgerald. This is Dr. Fitzgerald, I have seen and evaluated the patient with Yumiko, she is a 69-year-old lady with history of atrial fibrillation, sinus node dysfunction with permanent pacemaker, admitted with syncope, probably she is having orthostatic hypotension, MRI of the head was negative. Pacemaker interrogation showed multiple episodes of atrial fibrillation. At this point I will stop Lasix and lisinopril. Monitor blood pressure response, continue on digoxin and beta blockers. Change oral anticoagulation to Pradaxa. Clinical Quality Measures DVT/VTE Risk/Contraindication: Risk Factor Score Per Nursin RFS Level Per Nursing on Admit: 2=Moderate YUMIKO CARRERA Sep 07, 2019 09:56 ADELAIDA FITZGERALD MD Sep 07, 2019 14:11
--- NOTE | 2019-09-07 11:10 | NUR ---
Pastoral care visit.
[2019-09-07 12:00] VITALS: BP 129/79
--- NOTE | 2019-09-07 13:10 | Diagnostic Imaging Report ---
PROCEDURE: MR imaging of the brain without contrast. TECHNIQUE: Multiplanar, multisequence MR imaging of the brain was performed without contrast. INDICATION: Headaches. Mental status change. Memory problems. Evaluate for stroke. COMPARISON: CT head on 09/06/2019. Findings: No acute ischemia, mass, or hemorrhage. Chronic microvascular disease is seen in the periventricular and subcortical white matter. The ventricles, cortical sulci, and basilar cisterns are symmetric and unremarkable. The sellar and suprasellar regions have a normal appearance. The brainstem and posterior fossa are unremarkable. The paranasal sinuses and mastoid air cells demonstrate normal signal characteristics. Bilateral lens implants are noted. The globes and orbits are symmetric and unremarkable. The scalp and calvarium have a normal appearance. Impression: 1. No acute ischemia, mass, or hemorrhage. 2. Chronic microvascular disease. Dictated by: Dictated on workstation # [id number]
[2019-09-07] MEDS: D5 1/2 NS 1000 ML IV SOLUTION 1,000 ML IV SCH (13:17)
--- NOTE | 2019-09-07 13:19 | History & Physical-Hospitalist ---
History of Present Illness HPI/Chief Complaint Pt is a 69yoCF with a PMH TIA, a-fib s/p pacemaker, and orthostatic hypotension who prsented to the ER due to syncopal episode. She reports she stood up and got dizzy. Within a few steps she passed out and was foundby a neighbor. She is unsure how long she was down. She believes she fell sometimes after 1pm and presented to the ER around 3pm. This morning she denies any syncope or lightheadedness .She does complain of a head ache. She states she previously took Lortab or her headaches but that Dr Duron told her she couldn't have it anymore. She also states "my head feels like jelly" but that this has been going on for 1 year and she has an appointment with Neurology set up for September 27. She also states she was in a hospital in [place] last year for over 50 days because of an infected pacemaker and then was discharged to a long-term. Source: patient Date Seen 09/07/19 Time Seen by a Provider: 13:08 Attending Physician Den Castrejon MD PCP No,Local Physician Referring Physician Date of Admission Sep 06, 2019 at 4:50 pm Home Medications & Allergies Home Medications Reviewed patient Home Medication Reconciliation performed by pharmacy medication reconciliations computer operations technician and/or nursing. Patients Allergies have been reviewed. Allergies Allergies Coded Allergies Sulfa (Sulfonamide Antibiotics) (Verified Allergy, Unknown, 04/26/19) morphine (Verified Allergy, Unknown, 04/26/19) Past Wyjkuaq-Mltbws-Lmpydt Hx Past Med/Social Hx: Reviewed Nursing Past Med/Soc Hx, Reviewed and Corrections made Patient Social History Marrital Status: Employed/Student: employed Alcohol Use: Denies Use Recreational Drug Use: No Smoking Status: Never a Smoker 2nd Hand Smoke Exposure: No Recent Foreign Travel: No Contact w/other who traveled: No Recent Hopitalizations: Yes (08/14-08/16/19 FOR POSSIBLE TIA) Recent Infectious Disease Expo: No Immunizations Up To Date Date of Pneumonia Vaccine: Sep 06, 2019 Date of Influenza Vaccine: May 06, 2019 Seasonal Allergies Seasonal Allergies: Yes Past Medical History Surgeries: Adenoidectomy, Appendectomy, Cardiac, Gallbladder, Hysterectomy, Oophorectomy, Pacemaker, Rectal, Tonsillectomy Cardiac: Atrial Fibrillation, Cardiomyopathy, Coronary Artery Disease, Heart Attack, Hypertension, Irregular Heartbeat, Syncope Hysterectomy, Menopausal Musculoskeletal: Arthritis Endocrine: Hypothyroidsim History of Blood Disorders: No Family History Reviewed Nursing Family Hx Cancer, Diabetes, Lung Disease Review of Systems Constitutional: No chills; dizziness; No fever EENTM: no symptoms reported Respiratory: No cough, No short of breath Cardiovascular: No chest pain, No edema, No palpitations Gastrointestinal: No abdominal pain, No nausea, No vomiting Genitourinary: no symptoms reported Musculoskeletal: see HPI Skin: no symptoms reported Psychiatric/Neurological: Headache; Denies Numbness, Denies Paresthesia; Weakness (baseline right upper extremity after wrist surgery) Physical Exam Physical Exam Vital Signs Vital Signs - First Documented 09/06/19 09/06/19 15:15 17:44 Temp 36.7 Pulse 45 Resp 14 B/P (MAP) 146/87 (106) Pulse Ox 97 O2 Delivery Room Air Capillary Refill : Less Than 3 Seconds Height, Weight, BMI Height: '" Weight: lbs. oz. kg; 36.73 BMI Method: General Appearance: No Apparent Distress, Chronically ill Respiratory: Lungs Clear, No Respiratory Distress Results Results/Procedures Labs Laboratory Tests 09/06/19 15:15 09/07/19 03:22 09/08/19 03:15 Patient resulted labs reviewed. Imaging: Reviewed Imaging Report Assessment/Plan Admission Diagnosis Syncope Admission Status: Observation Assessment and Plan Syncope Concerning for orthostatic hypotension given symptoms- will order orthostatics Discussed with cardiology and plan to interrogate pacemaker as well Will get Brain MRI as she was admitted a couple of weeks ago with similar symptoms and was told it was a TIA Atrial Fibrillation With pacemaker in place- plan to interrogate it Cardiology consulted, appreciate recs Dig level low Pradaxa for stroke ppx Diagnosis/Problems Diagnosis/Problems (1) Orthostatic hypotension Status: Acute (2) Headache Status: Chronic Qualifiers: Headache type: tension-type (3) Episode of syncope Status: Acute (4) Chronic atrial fibrillation Status: Acute (5) Right shoulder pain Status: Acute Clinical Quality Measures DVT/VTE Risk/Contraindication: Risk Factor Score Per Nursin RFS Level Per Nursing on Admit: 2=Moderate DEN CASTREJON MD Sep 07, 2019 13:19
[2019-09-07] MEDS: DABIGATRAN 150 MG (PRADAXA) CAPSULE PO SCH ×2 (13:42→20:32)
[2019-09-07 15:30] VITALS: BP 126/56
[2019-09-07] MEDS ORDERED: RIVA20TA PO (15:33)
[2019-09-07] MEDS ORDERED: MELA1TAB29 PO (15:33)
[2019-09-07] MEDS ORDERED: LISI2.5T PO (15:37)
[2019-09-07] MEDS ORDERED: FOLI-74 PO (15:40)
[2019-09-07] MEDS ORDERED: FERR-84 PO (15:40)
[2019-09-07] MEDS ORDERED: FURO20TA4 PO (15:40)
[2019-09-07] MEDS ORDERED: POTA10CA43 PO (15:46)
--- NOTE | 2019-09-07 15:52 | NUR ---
SPOKE WITH THE PT(HOME MEDS ARE WITH HER) WELL GOING THRU THE EXT MED HISTORY TO COMPLETE THE MED REC. POTASSIUM 10 MEQ: BOTTLE HAD APRIL 2019 DATING HOWEVER ON THE EXT MED HISTORY IT SHOWS A MORE RECENT FILL DATE (PT SAYS SHE POURS BOTTLES TOGETHER). ALSO THERE ARE 2 DIFFERENT LOOKING CAPS IN THE POTASSIUM BOTTLE. THERE ARE THE WHITE CAPSULES THAT ARE IDENTIFIED ON THE LABEL AND THEN THERE ARE BLUE/GREEN CAPS WITH THE MARKINGS OF 103. WHEN I LOOKED UP THAT CAP IT SHOWS THAT IT IS JUST ANOTHER MFG OF POTASSIUM 10 MEQ. OTC MEDS: MIRALAX MTV FLONASE ZYRTEC IRON MELATONIN
[2019-09-07] MEDS ORDERED: FLUTICASONE NASAL SPRAY (FLONASE) 16 GM BTL NS PRN (16:30)
[2019-09-07] MEDS: ACETAMINOPHEN 500 MG TAB (TYLENOL) PO PRN (17:00)
[2019-09-07 19:39] VITALS: BP 112/53
[2019-09-07] MEDS: CELECOXIB 100 MG (CeleBREX) CAP PO SCH (20:32)
[2019-09-07] MEDS: ALPRAZolam 0.25 MG (XANAX) TAB PO SCH (20:32)
[2019-09-07] MEDS: meTOprolol TARTRATE 25 MG (LOPRESSOR) TABLET PO SCH (20:33)
[2019-09-07] MEDS ORDERED: traZODone 100 MG (DESYREL) TAB PO SCH (21:00)
[2019-09-07] MEDS ORDERED: PARoxetine 20 MG (PAXIL) TAB PO SCH (21:00)
[2019-09-08] VITALS: BP 118/62
[2019-09-08 03:40] LABS: HEMOGLOBIN 13.3 G/DL (11.5-16.0); MEAN PLATELET VOLUME 10.5 FL (7.4-10.4); RED CELL DISTRIBUTION WIDTH 12.9 % (10.0-14.5)
[2019-09-08 04:00] VITALS: BP 118/74
[2019-09-08 04:08] LABS: CALCIUM 8.8 MG/DL (8.5-10.1); CREATININE SERUM 1.06 MG/DL (0.60-1.30); POTASSIUM 4.1 MMOL/L (3.6-5.0)
--- NOTE | 2019-09-08 08:09 | Cardiology Progress Note ---
Subjective Date Seen by Provider: Sep 08, 2019 Time Seen by Provider: 08:07 Subjective/Events-last exam Patient is laying down in bed, feeling better, still complaining of generalized body ache. No chest pain Review of Systems General: No Chills, No Night Sweats; Fatigue, Malaise; No Appetite, No Other HEENT: No Head Aches, No Visual Changes, No Eye Pain, No Ear Pain, No Dysphasia, No Sinus Congestion, No Post Nasal Drip, No Sore Throat, No Other Pulmonary: No Dyspnea, No Cough, No Pleuritic Chest Pain, No Other Cardiovascular: No: Chest Pain, Palpitations, Orthopnea, Paroxysmal Noc. Dyspnea, Edema, Lt Headedness, Other Focused Exam Lactate Level 09/06/19 15:35: Lactic Acid Level 2.13*H 09/06/19 17:30: Lactic Acid Level 1.45 Objective-Cardiology Exam Last Set of Vital Signs Vital Signs 09/08/19 04:00 Temp 36.3 Pulse 60 Resp 18 B/P (MAP) 118/74 (89) Pulse Ox 96 O2 Delivery Room Air Capillary Refill : Less Than 3 Seconds I&O Intake and Output 09/08/19 00:00 Intake Total 150 ml Output Total 1900 ml Balance -1750 ml Intake Oral 150 ml Output Urine Total 1900 ml General: Alert, Oriented X3, Cooperative HEENT: Atraumatic, PERRLA Neck: Supple, No JVD, No Thyromegaly Lungs: Clear to Auscultation, Normal Air Movement Heart: Normal S1, Normal S2, No Murmurs, Other (Irregular) Abdomen: Normal Bowel Sounds, Soft, No Tenderness, No Hepatosplenomegaly, No Masses Extremities: No Clubbing, No Cyanosis, No Edema, Normal Pulses, No Tenderness/Swelling Skin: No Rashes, No Breakdown, No Significant Lesion Neuro: Normal Gait, Normal Speech, Strength at 5/5 X4 Ext, Normal Tone, Sensation Intact Psych/Mental Status: Mental Status NL, Mood NL Results Lab Laboratory Tests 09/08/19 03:15 A/P-Cardiology Admission Diagnosis Syncope TIA-like symptoms CAD PAF Assessment/Plan Syncope, likely secondary to orthostatic hypotension. Has had history of syncope with multiple episodes or orthostatic hypotension. Patient reports she has been hypotensive at home for the past several weeks with SBP in the 80's. I stopped Lasix and lisinopril. Monitor blood pressure as an outpatient. TIA-like symptoms with AMS, now resolved. Was hospitalized earlier this month for similar symptoms. CT head negative, evaluate MRI. Xarelto was stopped and changed to Pradaxa 150 twice a day Coronary artery disease, multiple interventions in the past, last cardiac catheterization was done in February 2019 in [place] reported as nonobstructive disease with 40-50 percent stenosis in the proximal LAD, with mildly reduced cardiac output but no significant obstructive disease. Continue to monitor Congestive heart failure, last echo was done in April 2019 showing ejection fraction 55-65 percent, moderate mitral regurgitation, moderate aortic regurgitation, moderate to severe tricuspid regurgitation, PA pressure was not measured. Continue to monitor History of permanent pacemaker Medtr[employer], had it on the left side and it was infected, replaced in August 2018, I will obtain full interrogation. Paroxysmal atrial fibrillation, appearts to be more persistent afib at this t mekhi, maintained on Xarelto, I will change to Pradaxa 150mg BID. EKG reveals atrial fibrillation, rate controlled. Right shoulder pain- management per medical services. Hypertension, currently borderline hypotensive. Continue to monitor. Hyperlipidemia, monitor lipids as outpatient. Gastroesophageal reflux disease maintained on PPI and Carafate. Anxiety, depression Okay for discharge from cardiology standpoint and follow up as an outpatient Clinical Quality Measures DVT/VTE Risk/Contraindication: Risk Factor Score Per Nursin RFS Level Per Nursing on Admit: 2=Moderate ADELAIDA RIGGS MD Sep 08, 2019 08:09
[2019-09-08 08:13] VITALS: BP 100/56
[2019-09-08] MEDS: meTOprolol TARTRATE 25 MG (LOPRESSOR) TABLET PO SCH (08:20)
[2019-09-08] MEDS: ALPRAZolam 0.25 MG (XANAX) TAB PO SCH (08:20)
[2019-09-08] MEDS: CELECOXIB 100 MG (CeleBREX) CAP PO SCH (08:20)
[2019-09-08] MEDS: DABIGATRAN 150 MG (PRADAXA) CAPSULE PO SCH (08:20)
[2019-09-08] MEDS ORDERED: DIGO125T3 PO (08:40)
[2019-09-08] MEDS ORDERED: DABI150C5 PO (08:40)
[2019-09-08] MEDS ORDERED: PARO40TA3 PO (08:40)
--- NOTE | 2019-09-08 08:50 | Discharge Inst-Simple/Standard ---
Discharge Inst-Standard Discharge Medications New, Converted or Re-Newed RX: Transmitted to Pharmacy Patient Instructions/Follow Up Plan of Care/Instructions/FU: Please continue to take your medications as written. Please follow up with a primary care doctor in the next week. Activity as Tolerated: Yes Discharge Diet: No Restrictions Return to The Hospital For: Chest pain, shortness of breath, heart racing, bleeding, passing out, dark stools, if feel you are getting worse. DEN ROBLES MD Sep 08, 2019 08:46
[2019-09-08] MEDS ORDERED: LORATADINE (CLARITIN) 10 MG TAB PO PRN (09:00)
[2019-09-08] MEDS ORDERED: DIGOXIN 0.125 MG (LANOXIN) TAB PO SCH (09:00)
--- NOTE | 2019-09-08 09:02 | Discharge Summary ---
Diagnosis/Chief Complaint Date of Admission Sep 06, 2019 at 16:50 Date of Discharge Discharge Date: Sep 08, 2019 Admission Diagnosis Syncope Primary Care No,Local Physician Discharge Diagnosis (1) Orthostatic hypotension Status: Acute (2) Headache Status: Chronic (3) Episode of syncope Status: Acute (4) Chronic atrial fibrillation Status: Acute (5) Right shoulder pain Status: Acute Discharge Summary Discharge Physical Exam Allergies: Coded Allergies: Sulfa (Sulfonamide Antibiotics) (Verified Allergy, Unknown, 04/26/19) morphine (Verified Allergy, Unknown, 04/26/19) Vitals & I&Os Vital Signs Date Time Temp Pulse Resp B/P (MAP) Pulse Ox O2 Delivery O2 Flow Rate FiO2 09/08/19 08:13 36.8 67 18 100/56 (71) 97 Room Air Hospital Course Labs (last 24 hrs) Laboratory Tests 09/08/19 03:15: White Blood Count 6.0, Red Blood Count 4.30L, Hemoglobin 13.3, Hematocrit 39, Mean Corpuscular Volume 92, Mean Corpuscular Hemoglobin 31, Mean Corpuscular Hemoglobin Concent 34, Red Cell Distribution Width 12.9, Platelet Count 172, Mean Platelet Volume 10.5H, Sodium Level 141, Potassium Level 4.1, Chloride Level 111H, Carbon Dioxide Level 22, Anion Gap 8, Blood Urea Nitrogen 19H, Creatinine 1.06, Estimat Glomerular Filtration Rate 51, BUN/Creatinine Ratio 18, Glucose Level 100, Calcium Level 8.8 Patient resulted labs reviewed. Pending Labs Laboratory Tests 09/08/19 03:15: White Blood Count 6.0, Red Blood Count 4.30, Hemoglobin 13.3, Hematocrit 39, Mean Corpuscular Volume 92, Mean Corpuscular Hemoglobin 31, Mean Corpuscular Hemoglobin Concent 34, Red Cell Distribution Width 12.9, Platelet Count 172, Leigh n Platelet Volume 10.5, Sodium Level 141, Potassium Level 4.1, Chloride Level 111, Carbon Dioxide Level 22, Anion Gap 8, Blood Urea Nitrogen 19, Creatinine 1.06, Estimat Glomerular Filtration Rate 51, BUN/Creatinine Ratio 18, Glucose Level 100, Calcium Level 8.8 Imaging: Reviewed Imaging Report Discharge Home Medications: Active Scripts Active Pradaxa (Dabigatran Etexilate Mesylate) 150 Mg Capsule 150 Mg PO BID Digoxin 125 Mcg Tablet 125 Mcg PO DAILY Paroxetine HCl 40 Mg Tablet 40 Mg PO HS Reported Potassium Chloride 10 Meq Capsule.er 10 Meq PO DAILY PRN Iron (Ferrous Sulfate) 325 Mg Tablet 325 Mg PO DAILY Furosemide 20 Mg Tablet 20 Mg PO DAILY One Daily For Women Tablet (Folic Acid/Mv,Fe,Other Min) 1 Each Tablet 1 Each PO DAILY Lisinopril 2.5 Mg Tablet 2.5 Mg PO DAILY Melatonin-Vit B6 3 mg-1 mg Tab (Melatonin/Pyridoxine HCl (B6)) 1 Each Tablet 1 Each PO HS Xarelto (Rivaroxaban) 20 Mg Tablet 20 Mg PO DAILY Fluticasone Propionate 16 Gm [place]nel[place].susp 2 Sprays NS DAILY PRN Alprazolam 0.25 Mg Tablet 0.25 Mg PO BID Miralax (Polyethylene Glycol 3350) 17 Gm Powd.pack 17 Gm PO DAILY PRN Celecoxib 200 Mg Capsule 200 Mg PO BID Trazodone HCl 100 Mg Tablet 200 Mg PO HS TAKES 2 (100MG) TABS Wal-Zyr (Cetirizine HCl) 10 Mg Tablet 10 Mg PO DAILY PRN Metoprolol Tartrate 25 Mg Tablet 12.5 Mg PO BID TAKES 1/2 (25MG) TABLET Instructions to patient/family Please see electronic discharge instructions given to patient. Clinical Quality Measures DVT/VTE Risk/Contraindication: Risk Factor Score Per Nursin RFS Level Per Nursing on Admit: 2=Moderate Problem Qualifiers (1) Headache: Headache type: tension-type DEN ROBLES MD Sep 08, 2019 09:02
[2019-09-08] MEDS: ACETAMINOPHEN 500 MG TAB (TYLENOL) PO PRN (11:32)
--- NOTE | 2019-09-08 11:50 | NUR ---
THIS NURSE EDUCATED PT ON DISCHARGE INSTRUCTIONS. PT STATED UNDERSTANDING. PT TAKEN DOWN VIA WHEELCHAIR. PT TAKEN HOME BY FRIEND
[2019-09-08 11:57] VITALS: BP 100/56
== END 2019-09-08 11:57 | disposition home or self-care (01) ==
LOC: EDUNIT# 15:13 → ER 15:14 → CSD 16:50
PROVIDERS: ADMIT Family Medicine; ATTEND Family Medicine
DX: I95.1 Orthostatic hypotension (principal); I42.9 Cardiomyopathy, unspecified; I25.10 Atherosclerotic heart disease of native coronary artery without angina pectoris; I25.2 Old myocardial infarction; I48.20 Chronic atrial fibrillation, unspecified; I49.5 Sick sinus syndrome; I50.9 Heart failure, unspecified; I11.0 Hypertensive heart disease with heart failure; S09.90XA Unspecified injury of head, initial encounter; M19.90 Unspecified osteoarthritis, unspecified site; E03.9 Hypothyroidism, unspecified; E78.5 Hyperlipidemia, unspecified; K21.9 Gastro-esophageal reflux disease without esophagitis; F41.9 Anxiety disorder, unspecified; F32.9 Major depressive disorder, single episode, unspecified; M25.511 Pain in right shoulder; Z88.5 Allergy status to narcotic agent; Z79.899 Other long term (current) drug therapy; Z90.89 Acquired absence of other organs; Z90.710 Acquired absence of both cervix and uterus; Z88.2 Allergy status to sulfonamides; Z95.1 Presence of aortocoronary bypass graft; Z80.9 Family history of malignant neoplasm, unspecified; Z83.3 Family history of diabetes mellitus
CPT/HCPCS: 36415; 70450; 70486; 70551; 71045; 71275; 72125; 72128; 72131; 73030; 74177; 80048; 80053; 80162; 80306; 80320; 80329; 81000; 82150; 82962; 83605; 83690; 83735; 83874; 83880; 84443; 84484; 85025; 85027; 85610; 85730; 93005; 93041; 96361; 96374; 96375

== ENCOUNTER 2019-09-20 21:14 | Inpatient (IN) | payer MEDICARE ==
[~2019-09-20] VITALS: Ht 165 cm; Wt 75.4 kg
[~2019-09-20 21:14] MED LIST changes: +DABI150C5 PO; +FERR-84 PO; +MELA1TAB29 PO; -ONDANSETRON 4 MG/2 ML (SDV) Z0FRAN ONE
[2019-09-20] MEDS ORDERED: RT-ALBUTEROL SULF 2.5 MG/3 ML PRE-MIX VIAL INH STA (21:21)
[2019-09-20] MEDS ORDERED: ONDANSETRON 4 MG/2 ML (SDV) Z0FRAN ONE (21:24)
[2019-09-20] MEDS ORDERED: NITROGLYCERIN 2% OINT 1 GM UNIT DOSE PACKET TOP ONE (21:30)
[2019-09-20] MEDS ORDERED: RT-ALBUTEROL/IPRATROPIUM 3 ML (DUONEB) VIAL INH ONE (21:30)
[2019-09-20] MEDS ORDERED: methylPREDNISolone 125 MG (Solu-MEDROL) VIAL IVP ONE (21:30)
[2019-09-20] MEDS ORDERED: ONDANSETRON 4 MG/2 ML (SDV) Z0FRAN IVP ONE (21:30)
[2019-09-20] MEDS ORDERED: LORazepam INJ 2 MG/ML (ATIVAN) VIAL IVP ONE (21:45)
--- NOTE | 2019-09-20 21:47 | Diagnostic Imaging Report ---
INDICATION: Chest pain, shortness of breath, patient on a respirator. FINDINGS: Portable upright view of the chest demonstrates the heart size to be stable with normal vascularity. Patient has developed fairly prominent perihilar infiltrates. No effusions are present. Cardiac pacer remains in place. IMPRESSION: There has been interval development of prominent bilateral perihilar infiltrates. Dictated by: Dictated on workstation # [id number]
[2019-09-20 21:53] VITALS: BP 170/86
[2019-09-20] MEDS ORDERED: fentaNYL INJECTION 100 MCG/2 ML AMP ONE (22:00)
[2019-09-20] MEDS ORDERED: PIPERACILLIN SODIUM/TAZOBACTAM 4.5 GM in NS (IVPB) 100 ML IV ONE (22:00)
--- NOTE | 2019-09-20 22:04 | ED Respiratory ---
General Chief Complaint: Respiratory Problems Stated Complaint: SOB/CHEST PAIN Nursing Triage Note: ARRIVES VIA EMS WITH DUONEB IN PLACE AT 6 LITERS WITH SIMPLE MASK. PATIENT IS HAVING DIFFICULTY TALKING AND ENCOURAGED TO REST AND TRY NOT TO TALK AT THIS TIME. DR MOULTON IN ROOM Source: patient, old records Exam Limitations: no limitations (REENA HENRIQUEZ MD) History of Present Illness Date Seen by Provider: Sep 20, 2019 Time Seen by Provider: 21:15 Initial Comments This 69-year-old woman presents to the emergency room via EMS from home where she was found in respiratory distress. She has very poor air movement and is gasping at times. She has a history of COPD and CHF. She is receiving a DuoNeb treatment by EMS. She is a poor historian as she is not able to talk much with her respiratory distress. She is afebrile. She also complained of chest pain and received aspirin 324 mg by EMS and one nitroglycerin. Chest pain did improve with nitroglycerin. She reports a history of coronary artery disease and atrial fibrillation. She is a full code. Respiratory therapy was immediately summoned to start BiPAP therapy and an hour-long nebulizer treatment. (REENA HENRIQUEZ MD) Allergies and Home Medications Allergies Coded Allergies: Sulfa (Sulfonamide Antibiotics) (Verified Allergy, Unknown, 04/26/19) morphine (Verified Allergy, Unknown, 04/26/19) Home Medications Alprazolam 0.25 Mg Tablet, 0.25 MG PO BID, (Reported) Cetirizine HCl 10 Mg Tablet, 10 MG PO DAILY PRN for ALLERGIES, (Reported) Dabigatran Etexilate Mesylate 150 Mg Capsule, 150 MG PO BID Prescribed by: DEN ROBLES on 09/08/19 0840 Digoxin 125 Mcg Tablet, 125 MCG PO DAILY Prescribed by: DEN ROBLES on 09/08/19 0840 Ferrous Sulfate 325 Mg Tablet, 325 MG PO DAILY, (Reported) Fluticasone Propionate 16 Gm [place].susp, 2 SPRAYS NS DAILY PRN for ALLERGIES, (Reported) Folic Acid/Mv,Fe,Other Min 1 Each Tablet, 1 EACH PO DAILY, (Reported) Melatonin/Pyridoxine HCl (B6) 1 Each Tablet, 1 EACH PO HS, (Reported) Metoprolol Tartrate 25 Mg Tablet, 12.5 MG PO BID, (Reported) TAKES 1/2 (25MG) TABLET Paroxetine HCl 40 Mg Tablet, 40 MG PO HS Prescribed by: DEN ROBLES on 09/08/19 0840 Polyethylene Glycol 3350 17 Gm Powd.pack, 17 GM PO DAILY PRN for CONSTIPATION- 2ND LINE, (Reported) Potassium Chloride 10 Meq Capsule.er, 10 MEQ PO DAILY PRN for WHEN TAKING FUROSEMIDE, (Reported) Trazodone HCl 100 Mg Tablet, 200 MG PO HS, (Reported) TAKES 2 (100MG) TABS Patient Home Medication List Home Medication List Reviewed: Yes (REENA HENRIQUEZ MD) Review of Systems Review of Systems Constitutional: no symptoms reported EENTM: no symptoms reported Respiratory: see HPI Cardiovascular: see HPI Gastrointestinal: nausea Genitourinary: no symptoms reported Musculoskeletal: no symptoms reported Skin: no symptoms reported Psychiatric/Neurological: Anxiety Hematologic/Lymphatic: No Symptoms Reported Immunological/Allergic: no symptoms reported (REENA HENRIQUEZ MD) Past Tjwszlj-Ydtnsn-Uqlaab Hx Past Med/Social Hx: Reviewed and Corrections made (REENA HENRIQUEZ MD) Patient Social History 2nd Hand Smoke Exposure: No Recent Foreign Travel: No Contact w/Someone Who Travel: No Recent Infectious Disease Expo: No Recent Hopitalizations: Yes (08/14-08/16/19 FOR POSSIBLE TIA) (REENA HENRIQUEZ MD) Immunizations Up To Date Date of Pneumonia Vaccine: Sep 06, 2019 Date of Influenza Vaccine: May 06, 2019 (REENA HENRIQUEZ MD) Seasonal Allergies Seasonal Allergies: Yes (REENA HENRIQUEZ MD) Past Medical History Surgeries: Yes ("MESH IN RECTAL AREA" PER OLD RECORDS; CARDIAC CATH IN [place]) Adenoidectomy, Appendectomy, Cardiac, Gallbladder, Hysterectomy, Oophorectomy, Pacemaker, Rectal, Tonsillectomy Respiratory: Yes Asthma, COPD Cardiac: Yes (SSS,PACEMAKER (MEDTR); CHF; NON-ISCHEMIC CARDIOMYOPATHY;CAD-NO I NTERVENTION) Atrial Fibrillation (paroxysmal), Cardiomyopathy, Coronary Artery Disease, Heart Attack, High Cholesterol, Hypertension, Irregular Heartbeat, Syncope 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, 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 Genitourinary: No Gastrointestinal: Yes Gastroesophageal Reflux Musculoskeletal: Yes Arthritis Endocrine: Yes Hypothyroidsim HEENT: No Cancer: No Psychosocial: Yes Anxiety Integumentary: No Blood Disorders: No (REENA HENRIQUEZ MD) Family Medical History Reviewed Nursing Family Hx (REENA HENRIQUEZ MD) Cancer, Diabetes, Lung Disease (REENA HENRIQUEZ MD) Physical Exam Vital Signs - First Documented 09/20/19 21:19 Temp 36.2 Pulse 112 Resp 30 B/P (MAP) 170/93 (118) Pulse Ox 99 O2 Delivery Simple Mask O2 Flow Rate 6.00 FiO2 100 (EFRAIN THIBODEAUX) Capillary Refill : Less Than 3 Seconds (REENA HENRIQUEZ MD) Height: '" Weight: lbs. oz. 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 as tested, no motor/sensory deficits, alert, oriented x 3, other (anxious) Skin: normal color, warm/dry (REENA HENRIQUEZ MD) Focused Exam Sepsis Stage: Sepsis Possible Source: Pulmonary Lactate Level 09/20/19 21:32: Lactic Acid Level 1.28 (EFRAIN THIBODEAUX) Time of Focused Exam: 23:50 Respiratory: No Accessory Muscle Use, No Respiratory Distress, Decreased Breath Sounds, Wheezing Cardiovascular: Regular Rate, Rhythm, No Edema, Normal Peripheral Pulses Capillary Refill: Less Than 3 Seconds Peripheral Pulses: 2+ Radial Pulses (R), 2+ Radial Pulses (L) Skin: normal color, warm/dry Lactic Acid Level Laboratory Tests Test 09/20/19 21:32 Lactic Acid Level 1.28 MMOL/L (0.50-2.00) (EFRAIN THIBODEAUX) Within 3hrs of presentation: Admin fluids, Admin ABX, Blood cultures prior to ABX's, Focus exam, Lactate level (EFRAIN THIBODEAUX) Progress/Results/Core Measures Suspected Sepsis Recent Fever Within 48 Hours: No Infection Criteria Present: None New/Unexplained Altered Menta: No Sepsis Screen: No Definite Risk SIRS Temperature: Pulse: 124 Respiratory Rate: 37 Laboratory Tests 09/20/19 21:22: Blood Pressure 170 /86 Mean: 118 Laboratory Tests 09/20/19 21:22: (REENA HENRIQUEZ MD) Results/Orders Lab Results Laboratory Tests Test 09/20/19 21:22 09/20/19 21:32 09/20/19 22:15 Range/Units White Blood Count 10.8 4.3-11.0 10^3/uL Red Blood Count 4.36 4.35-5.85 10^6/uL Hemoglobin 13.4 11.5-16.0 G/DL Hematocrit 41 35-52 % Mean Corpuscular Volume 94 80-99 FL Mean Corpuscular Hemoglobin 31 25-34 PG Mean Corpuscular Hemoglobin Concent 33 32-36 G/DL Red Cell Distribution Width 13.8 10.0-14.5 % Platelet Count 254 130-400 10^3/uL Mean Platelet Volume 10.8 H 7.4-10.4 FL Neutrophils (%) (Auto) 65 42-75 % Lymphocytes (%) (Auto) 25 12-44 % Monocytes (%) (Auto) 8 0-12 % Eosinophils (%) (Auto) 2 0-10 % Basophils (%) (Auto) 0 0-10 % Neutrophils # (Auto) 7.1 1.8-7.8 X 10^3 Lymphocytes # (Auto) 2.7 1.0-4.0 X 10^3 Monocytes # (Auto) 0.8 0.0-1.0 X 10^3 Eosinophils # (Auto) 0.2 0.0-0.3 10^3/uL Basophils # (Auto) 0.0 0.0-0.1 10^3/uL Prothrombin Time 16.9 H 12.2-14.7 SEC INR Comment 1.3 0.8-1.4 Activated Partial Thromboplast Time 87 H 24-35 SEC Sodium Level 143 135-145 MMOL/L Potassium Level 3.9 3.6-5.0 MMOL/L Chloride Level 109 H 98-107 MMOL/L Carbon Dioxide Level 22 21-32 MMOL/L Anion Gap 12 5-14 MMOL/L Blood Urea Nitrogen 19 H 7-18 MG/DL Creatinine 1.18 0.60-1.30 MG/DL Estimat Glomerular Filtration Rate 45 BUN/Creatinine Ratio 16 Glucose Level 122 H 70-105 MG/DL Calcium Level 9.3 8.5-10.1 MG/DL Corrected Calcium 9.0 8.5-10.1 MG/DL Magnesium Level 2.1 1.6-2.4 MG/DL Total Bilirubin 1.0 0.1-1.0 MG/DL Aspartate Amino Transf (AST/SGOT) 19 5-34 U/L Alanine Aminotransferase (ALT/SGPT) 13 0-55 U/L Alkaline Phosphatase 108 40-136 U/L Myoglobin 28.6 10.0-92.0 NG/ML Troponin I < 0.028 <0.028 NG/ML C-Reactive Protein High Sensitivity 0.34 0.00-0.50 MG/DL B-Type Natriuretic Peptide 482.5 H <100.0 PG/ML Total Protein 7.2 6.4-8.2 GM/DL Albumin 4.4 3.2-4.5 GM/DL Digoxin Level < 0.30 L 0.80-2.00 NG/ML Lactic Acid Level 1.28 0.50-2.00 MMOL/L Urine Color YELLOW Urine Clarity CLEAR Urine pH 6.0 5-9 Urine Specific [place] <=1.005 1.016-1.022 Urine Protein NEGATIVE NEGATIVE Urine Glucose (UA) NEGATIVE NEGATIVE Urine Ketones NEGATIVE NEGATIVE Urine Nitrite NEGATIVE NEGATIVE Urine Bilirubin NEGATIVE NEGATIVE Urine Urobilinogen 0.2 < = 1.0 MG/DL Urine Leukocyte Esterase NEGATIVE NEGATIVE Urine RBC (Auto) 2+ H NEGATIVE Urine RBC 0-2 /HPF Urine WBC NONE /HPF Urine Crystals NONE /LPF Urine Bacteria TRACE /HPF Urine Casts NONE /LPF Urine Mucus NEGATIVE /LPF Urine Culture Indicated NO (EFRAIN THIBODEAUX) Micro Results Microbiology 09/20/19 Influenza Types A,B Antigen (NADIA) - Final, Complete (EFRAIN THIBDOEAUX) My Orders Orders - EFRAIN THIBODEAUX Lactic Acid Analyzer (09/20/19 23:47) Ed Iv/Invasive Line Start (09/20/19 23:47) Ns Iv 1000 Ml (Sodium Chloride 0.9%) (09/20/19 23:47) Ns Iv 1000 Ml (Sodium Chloride 0.9%) (09/20/19 23:47) Vancomycin Injection (Vancomycin Injecti (09/21/19 00:00) Albuterol Pre-Mix Nebs (Rt) (Proventil (09/21/19 00:00) Ua Culture If Indicated (09/20/19 23:49) Urine Culture (09/20/19 23:50) (EFRAIN THIBODEAUX) Medications Given in ED Current Medications Medications Dose Ordered Sig/Nicole Route Start Time Stop Time Status Last Admin Dose Admin Albuterol/ Ipratropium 3 ml ONCE ONCE INH 09/20/19 21:30 09/20/19 21:31 DC 09/20/19 21:51 3 ML Fentanyl Citrate 50 mcg ONCE ONCE IVP 09/20/19 22:15 09/20/19 22:16 DC 09/20/19 22:07 50 MCG Lorazepam 0.25 mg ONCE ONCE IVP 09/20/19 21:45 09/20/19 21:46 DC 09/20/19 21:36 0.25 MG Methylprednisolone Sodium Succinate 125 mg ONCE ONCE IVP 09/20/19 21:30 09/20/19 21:31 DC 09/20/19 21:31 125 MG Nitroglycerin 1 inch ONCE ONCE TOP 09/20/19 21:30 09/20/19 21:31 DC 09/20/19 21:27 1 INCH Ondansetron HCl 8 mg ONCE ONCE IVP 09/20/19 21:30 09/20/19 21:31 DC 09/20/19 21:31 8 MG Piperacillin Sod/ Tazobactam Sod 4.5 gm/Sodium Chloride 100 ml @ 200 mls/hr ONCE ONCE IV 09/20/19 22:00 09/20/19 22:29 DC 09/20/19 22:40 200 MLS/HR (EFRAIN THIBODEAUX) Vital Signs/I&O 09/20/19 09/20/19 09/20/19 09/20/19 21:19 21:19 21:53 22:49 Temp 36.2 Pulse 112 124 80 Resp 30 37 24 B/P (MAP) 170/93 (118) Pulse Ox 99 100 98 96 O2 Delivery Simple Mask O2 Flow Rate 6.00 30.00 30.00 FiO2 100 09/21/19 00:00 Intake Total 100 ml Balance 100 ml (EFRAIN THIBODEAUX) Vital Signs/I&O Capillary Refill : Less Than 3 Seconds (REENA HENRIQUEZ MD) Blood Pressure Mean: 118 Progress Note : Time: 22:10 Progress Note Patient was seen and examined promptly upon arrival. She was rather hypertensive. Nitroglycerin administered by EMS did improve chest pain. A nitroglycerin patch was applied. She had received aspirin by EMS. An hour-long nebulizer treatment and BiPAP were immediately ordered along with Solu-Medrol 125 mg. EKG showed no ischemia. Atrial fibrillation was present. She received Ativan 0.25 mg for anxiety. The nitroglycerin patch did not resolve her pain. Fentanyl 50 g IV was administered. Chest x-ray revealed infiltrates. Zosyn was ordered for initial antibiotic therapy. Septic workup is in progress. Care of this patient is being transitioned to Dr. Thibodeaux. (REENA HENRIQUEZ MD) Progress Note : Time: 23:56 Progress Note Having assume care of the patient at 2200 and agree with the above documented history and physical exam by Dr. Moulton. Agree with the plan. We did add fluid bolus 20 mL/kg. As her lung markings on x-ray appeared to be infectious. Her BNP is only 400. Her echocardiogram was 55 -65% from 2019. Patient has received her hour-long breathing treatment and is without wheezing at this time. Influenza markings were negative. ABG and CRP have not resulted out and we have called lab to sort this out. Lactate was collected but has also not resulted. When we have these results then we have a room for her in the hospital. Patient says she feels markedly improved on the BiPAP. Patient denies any recent travel outside the [facility] or [facility]. She denies being in contact with any sick people or people under investigation for gallegos Virus. (EFRAIN THIBODEAUX) ECG Initial ECG Impression Date: Sep 20, 2019 Initial ECG Impression Time: 21:25 Initial ECG Rate: 91 Initial ECG Rhythm: A Fib/Flutter Initial ECG Impression: Atrial Fibrillation Comment Atrial fibrillation with no ST elevation or depression. PVC noted. (REENA HENRIQUEZ MD) Diagnostic Imaging Diagonstic Imaging: Xray Plain Films/CT/US/NM/MRI: chest Comments Chest x-ray viewed by me and report reviewed. See report below: NAME: [facility] REC#: [id number] PT STATUS: REG ER : 1950 PHYSICIAN: REENA HENRIQUEZ MD ADMIT DATE: 09/20/19/ER Signed Date of Exam:09/20/19 CHEST 1 VIEW, AP/PA ONLY INDICATION: Chest pain, shortness of breath, patient on a respirator. FINDINGS: Portable upright view of the chest demonstrates the heart size to be stable with normal vascularity. Patient has developed fairly prominent perihilar infiltrates. No effusions are present. Cardiac pacer remains in place. IMPRESSION: There has been interval development of prominent bilateral perihilar infiltrates. Dictated by: Dictated on workstation # [id number] Dict: 09/20/[id number] Trans: 09/20/192206 [facility] [id number] Interpreted by: SENA ANDERSON MD Electronically signed by: SENA ANDERSON MD 09/20/192206 (REENA HENRIQUEZ MD) Departure Communication (Admissions) Time/Spoke to Admitting Phy: 00:[address] Conn and he agrees with admission, Zosyn, vancomycin, ICU placement. (EFRAIN THIBODEAUX) Impression Primary Impression: Pneumonia Qualified Codes: J18.9 - Pneumonia, unspecified organism Additional Impressions: Acute respiratory failure Qualified Codes: J96.01 - Acute respiratory failure with hypoxia Acute sepsis Disposition: ADMITTED INPATIENT Condition: Stable Admissions Decision to Admit Reason: Admit from ER (General) Decision to Admit/Date: Sep 20, 2019 Time/Decision to Admit Time: 22:00 (EFRAIN THIBODEAUX) Departure-Patient Inst. Referrals: NO,LOCAL PHYSICIAN (PCP/Family) Primary Care Physician REENA HENRIQUEZ MD Sep 20, 2019 22:04 EFRAIN THIBODEAUX Sep 20, 2019 23:06
[2019-09-20 22:07] LABS: INR 1.3 (0.8-1.4); PROTHROMBIN TIME PATIENT 16.9 SEC (12.2-14.7)
[2019-09-20 22:08] LABS: BASOPHILS % (AUTO) 0 % (0-10); EOSINOPHILS # (AUTO) 0.2 10^3/uL (0.0-0.3); EOSINOPHILS % (AUTO) 2 % (0-10); HEMATOCRIT 41 % (35-52); HEMOGLOBIN 13.4 G/DL (11.5-16.0); LYMPHOCYTES # (AUTO) 2.7 X 10^3 (1.0-4.0); LYMPHOCYTES % (AUTO) 25 % (12-44); MEAN CORPUSCULAR HEMOGLOBIN 31 PG (25-34); MEAN CORPUSCULAR HGB CONC 33 G/DL (32-36); MEAN CORPUSCULAR VOLUME 94 FL (80-99); MEAN PLATELET VOLUME 10.8 FL (7.4-10.4); MONOCYTES # (AUTO) 0.8 X 10^3 (0.0-1.0); MONOCYTES % (AUTO) 8 % (0-12); NEUTROPHILS # (AUTO) 7.1 X 10^3 (1.8-7.8); NEUTROPHILS % (AUTO) 65 % (42-75); PLATELET COUNT 254 10^3/uL (130-400); RED CELL DISTRIBUTION WIDTH 13.8 % (10.0-14.5); WHITE BLOOD COUNT 10.8 10^3/uL (4.3-11.0)
[2019-09-20] MEDS ORDERED: fentaNYL INJECTION 100 MCG/2 ML AMP IVP ONE (22:15)
[2019-09-20 22:24] LABS: ALBUMIN 4.4 GM/DL (3.2-4.5); CALCIUM 9.3 MG/DL (8.5-10.1); CREATININE SERUM 1.18 MG/DL (0.60-1.30); MAGNESIUM 2.1 MG/DL (1.6-2.4); POTASSIUM 3.9 MMOL/L (3.6-5.0); TOTAL PROTEIN 7.2 GM/DL (6.4-8.2)
[2019-09-20 22:49] VITALS: BP 134/68
[2019-09-20] MEDS ORDERED: NS IV 1000 ML 1,000 ML IV ONE (23:47)
[2019-09-20] MEDS ORDERED: NS IV 1000 ML 1,000 ML IV SCH (23:47)
[2019-09-20 23:58] LABS: BILIRUBIN,URINE NEGATIVE (NEGATIVE); CLARITY,URINE CLEAR; COLOR,URINE YELLOW; GLUCOSE, URINE (UA) NEGATIVE (NEGATIVE); KETONES,URINE NEGATIVE (NEGATIVE); LEUKOCYTE ESTERASE ,URINE NEGATIVE (NEGATIVE); NITRITE,URINE NEGATIVE (NEGATIVE); PROTEIN,URINE NEGATIVE (NEGATIVE)
[2019-09-21] VITALS (13 sets, daily range): BP systolic 106–144; BP diastolic 60–97
[2019-09-21] MEDS ORDERED: RT-ALBUTEROL SULF 2.5 MG/3 ML PRE-MIX VIAL INH ONE
[2019-09-21 00:05] LABS: BACTERIA,URINE TRACE /HPF; RBC,URINE 0-2 /HPF
[2019-09-21] MEDS: VANCOMYCIN INJECTION 1,000 MG in NS (IVPB) 250 ML IV SCH ×2 (00:23→04:14)
[2019-09-21 01:49] LABS: ABG BASE EXCESS -4.8 MMOL/L (-2.5-2.5); ABG OXYGEN SATURATION 98 % (94-100); ABG PCO2 39 MMHG (35-45); ABG PO2 102 MMHG (79-93); ABG TCO2 21.6 MMOL/L (21.0-31.0)
[2019-09-21 01:56] LABS: ABG PH 7.33 (7.37-7.43); ALLENS TEST POS; INSPIRED O2 30%; PATIENT TEMP 35.9; VENTILATOR NO
[2019-09-21] MEDS ORDERED: LORazepam INJ 2 MG/ML (ATIVAN) VIAL IV PRN (02:15)
[2019-09-21] MEDS ORDERED: EPINEPHrine 1 MG INJECTION 2 MG in NS (IVPB) 250 ML IV SCH (02:15)
[2019-09-21] MEDS ORDERED: VANCOMYCIN 1 GM/NS 250 ML IVPB IV ONE ×2 (02:30)
[2019-09-21 02:59] LABS: BASOPHILS % (AUTO) 0 % (0-10); EOSINOPHILS % (AUTO) 0 % (0-10); HEMATOCRIT 39 % (35-52); HEMOGLOBIN 12.5 G/DL (11.5-16.0); LYMPHOCYTES # (AUTO) 0.4 X 10^3 (1.0-4.0); LYMPHOCYTES % (AUTO) 4 % (12-44); MEAN CORPUSCULAR HEMOGLOBIN 31 PG (25-34); MEAN CORPUSCULAR HGB CONC 32 G/DL (32-36); MEAN CORPUSCULAR VOLUME 95 FL (80-99); MEAN PLATELET VOLUME 10.7 FL (7.4-10.4); MONOCYTES # (AUTO) 0.1 X 10^3 (0.0-1.0); MONOCYTES % (AUTO) 1 % (0-12); NEUTROPHILS # (AUTO) 8.6 X 10^3 (1.8-7.8); NEUTROPHILS % (AUTO) 94 % (42-75); PLATELET COUNT 189 10^3/uL (130-400); RED CELL DISTRIBUTION WIDTH 13.8 % (10.0-14.5); WHITE BLOOD COUNT 9.1 10^3/uL (4.3-11.0)
--- NOTE | 2019-09-21 03:24 | NUR ---
MAT score of 10 Duoneb Q4 and Q2PRN Monitor & Reassess Q72HRs and PRN Addendum: 09/21/19 at 0324 by CRISTA ROJO RT Amended: Links added.
[2019-09-21 03:30] LABS: ALBUMIN 4.1 GM/DL (3.2-4.5); CALCIUM 8.6 MG/DL (8.5-10.1); CREATININE SERUM 1.09 MG/DL (0.60-1.30); MAGNESIUM 2.2 MG/DL (1.6-2.4); PHOSPHORUS 3.2 MG/DL (2.3-4.7); POTASSIUM 3.9 MMOL/L (3.6-5.0); TOTAL PROTEIN 6.6 GM/DL (6.4-8.2)
[2019-09-21] MEDS ORDERED: RT-ALBUTEROL/IPRATROPIUM 3 ML (DUONEB) VIAL INH PRN (03:30)
[2019-09-21] MEDS ORDERED: VANCOMYCIN 1000 MG/VIAL ONE (03:58)
[2019-09-21] MEDS ORDERED: NS (IVPB) 250 ML ONE (03:58)
[2019-09-21] MEDS ORDERED: PIPERACILLIN/TAZO 4.5 GM VIAL (ZOSYN) IV ONE (03:59)
[2019-09-21] MEDS ORDERED: NS (IVPB) 100 ML ONE (03:59)
--- NOTE | 2019-09-21 04:06 | Pulmonary Consultation ---
History of Present Illness History of Present Illness Date Seen by Provider: Sep 21, 2019 Time Seen by Provider: 03:56 Date of Admission 09/20/19 Reason for Visit: SOB/CP History of Present Illness Pt is a 62 yo F w/ a hx of COPD, CAD, paroxysmal Afib, and anxiety presented to the ED via EMS last night for acute respiratory distress and CP. She was unable to provide a good history due to her distress and was immediately placed on BiPAP and a one hour duoneb treatment. 125 mg of Solumedrol was given. The patient's chest pain did not resolve with a nitroglycerin patch so she was given 50 mcg of fentanyl, which did improve her pain. CXR showed extensive bilateral perihilar infiltrates. The pt was started on sepsis protocol and IV Zosyn/Vancomycin. EKG was non-ischemic but showed Afib. Troponin was negative, BNP was 400. An Echocardiogram from 2019 showed EF 55-65%. The pt denies current or past smoking history. She does not wear oxygen at home and does not use an inhaler. She states she has been hospitalized and placed on a ventilator for COPD exacerbation in early 2018 in a hospital in [place]. She denies recent sick contacts. Allergies and Home Medications Allergies Coded Allergies: Sulfa (Sulfonamide Antibiotics) (Verified Allergy, Unknown, 04/26/19) morphine (Verified Allergy, Unknown, 04/26/19) Home Medications Alprazolam 0.25 Mg Tablet, 0.25 MG PO BID, (Reported) Cetirizine HCl 10 Mg Tablet, 10 MG PO DAILY PRN for ALLERGIES, (Reported) Dabigatran Etexilate Mesylate 150 Mg Capsule, 150 MG PO BID Prescribed by: DEN ROBLES on 09/08/19 0840 Digoxin 125 Mcg Tablet, 125 MCG PO DAILY Prescribed by: DEN ROBLES on 09/08/19 0840 Ferrous Sulfate 325 Mg Tablet, 325 MG PO DAILY, (Reported) Fluticasone Propionate 16 Gm [place].susp, 2 SPRAYS NS DAILY PRN for ALLERGIES, (R eported) Folic Acid/Mv,Fe,Other Min 1 Each Tablet, 1 EACH PO DAILY, (Reported) Melatonin/Pyridoxine HCl (B6) 1 Each Tablet, 1 EACH PO HS, (Reported) Metoprolol Tartrate 25 Mg Tablet, 12.5 MG PO BID, (Reported) TAKES 1/2 (25MG) TABLET Paroxetine HCl 40 Mg Tablet, 40 MG PO HS Prescribed by: DEN ROBLES on 09/08/19 0840 Polyethylene Glycol 3350 17 Gm [place].pack, 17 GM PO DAILY PRN for CONSTIPATION- 2ND LINE, (Reported) Potassium Chloride 10 Meq Capsule.er, 10 MEQ PO DAILY PRN for WHEN TAKING FUROSEMIDE, (Reported) Trazodone HCl 100 Mg Tablet, 200 MG PO HS, (Reported) TAKES 2 (100MG) TABS Past Rnzfyqv-Pnohzt-Eayulp Hx Past Med/Social Hx: Reviewed and Corrections made Patient Social History Alcohol Use: Denies Use Recreational Drug Use: No Smoking Status: Never a Smoker 2nd Hand Smoke Exposure: No Recent Foreign Travel: No Contact w/Someone Who Travel: No Recent Infectious Disease Expo: No Recent Hopitalizations: Yes (08/14-08/16/19 FOR POSSIBLE TIA) Physical Abuse: No Sexual Abuse: No Mistreated: No Fear: No Immunizations Up To Date Date of Pneumonia Vaccine: Sep 06, 2019 Date of Influenza Vaccine: May 06, 2019 Seasonal Allergies Seasonal Allergies: Yes Past Medical History Surgeries: Yes ("MESH IN RECTAL AREA" PER OLD RECORDS; CARDIAC CATH IN [place]) Adenoidectomy, Appendectomy, Cardiac, Gallbladder, Hysterectomy, Oophorectomy, Pacemaker, Rectal, Tonsillectomy Respiratory: Yes Asthma, COPD Cardiac: Yes (SSS,PACEMAKER (MEDTR); CHF; NON-ISCHEMIC CARDIOMYOPATHY;CAD-NO INTERVENTION) Atrial Fibrillation (paroxysmal), Cardiomyopathy, Coronary Artery Disease, Heart Attack, High Cholesterol, Hypertension, Irregular Heartbeat, Syncope Neurological: 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, 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 Genitourinary: No Gastrointestinal: Yes Gastroesophageal Reflux Musculoskeletal: Yes Arthritis Endocrine: Yes Hypothyroidsim HEENT: No Cancer: No Psychosocial: Yes Anxiety Integumentary: No Blood Disorders: No Family Medical History Reviewed Nursing Family Hx Cancer, Diabetes, Lung Disease Review of Systems Date Seen by Provider: Sep 21, 2019 Time Seen by Provider: 04:08 Constitutional: No: Fever, Chills Eyes: No: Pain, Vision change ENT: No: Nose congestion, Throat pain Respiratory: Shortness of breath, Wheezing; No: Cough Cardiovascular: Chest Pain, Palpitations; No: Edema Gastrointestinal: Nausea; No: Vomiting, Diarrhea, Constipation Genitourinary: No Dysuria, No Frequency Skin: No: Rash, Bruising Neurological: No: Weakness, Numbness Sepsis Event Evaluation Height, Weight, BMI Height: '" Weight: lbs. oz. kg; 36.00 BMI Method: Exam Exam Vital Signs Date Time Temp Pulse Resp B/P (MAP) Pulse Ox O2 Delivery O2 Flow Rate FiO2 09/21/19 03:08 124 98 30 09/21/19 02:13 32 30.00 09/21/19 02:00 93 NIV Bilevel 30 09/21/19 01:31 83 09/21/19 01:25 32 30.00 09/21/19 01:15 36.4 75 16 139/79 93 NIV Bilevel 09/20/19 22:49 80 24 96 30.00 09/20/19 21:53 124 37 98 30.00 09/20/19 21:19 100 Simple Mask 6.00 100 09/20/19 21:19 36.2 112 30 170/93 (118) 99 I & O 09/21/19 07:00 Intake Total 100 ml Output Total 650 ml Balance -550 ml Height & Weight Height: '" Weight: lbs. oz. kg; 36.00 BMI Method: General Appearance: No Apparent Distress, WD/WN HEENT: PERRL/EOMI, Normal ENT Inspection Neck: Full Range of Motion, Normal Inspection, Non Tender, Supple Respiratory: Chest Non Tender, No Accessory Muscle Use, No Respiratory Distress, Decreased Breath Sounds, Wheezing Cardiovascular: No Edema, Normal Peripheral Pulses, Irregularly Irregular Capillary Refill: Less Than 3 Seconds Peripheral Pulses: 2+ Radial Pulses (R), 2+ Radial Pulses (L) Gastrointestinal: normal bowel sounds, non tender, soft Extremity: Normal Capillary Refill, Normal Range of Motion, Non Tender, No Calf Tenderness, No Pedal Edema Neurologic/Psychiatric: Alert, Oriented x3 Skin: Normal Color, Warm/Dry Results Lab Laboratory Tests 09/20/19 21:22 09/21/19 02:20 Assessment/Plan Assessment/Plan Acute respiratory distress -Pt improved w/ duoneb, solumedrol, and BiPAP -ABG does not indicate hypoxemia or hypercapnia -Will attempt to wean to vapotherm today Infiltrates on CXR -MRSA swab pending -Influenza negative -Pt afebrile, no leukocytosis, lactate normal x2, doubt PNA -Will order urine legionella and strep -Continue Zosyn/Vancomycin for now Nausea -improved w/ Zofran CP -likely due to anxiety -improved w/ fentanyl Anxiety CAD Afib -continue home meds DVT prophylaxis -SCDs in place -Pt on Pradaxa regularly SHANTANU BAUTISTA MEDICAL STUDENT Sep 21, 2019 04:06
[2019-09-21] MEDS: NS IV 1000 ML 1,000 ML IV SCH ×4 (04:14→22:42)
[2019-09-21] MEDS: PIPERACILLIN/TAZOBACTAM (BULK) 4.5 GM in NS (IVPB) 100 ML IV SCH ×3 (04:15→20:24)
[2019-09-21] MEDS: VASOPRESSIN INJECTION 20 UNIT in NORMAL SALINE 100 ML IV SCH ×3 (04:17→20:16)
[2019-09-21] MEDS: NOREPINEPHRINE 4 MG/250 ML 250 ML IV SCH ×4 (04:18→22:42)
[2019-09-21 04:25] LABS: ANISOCYTOSIS SLIGHT; BAND NEUTROPHILS 1 %; LYMPHOCYTES % (MANUAL) 3 %; MONOCYTES % (MANUAL) 1 %; NEUTROPHILS % (MANUAL) 95 %
--- NOTE | 2019-09-21 05:50 | Diagnostic Imaging Report ---
Indication: Lower respiratory infection Portable chest 3:40 AM There is a unipolar pacemaker. Heart size is normal. There is increased density in both lungs. There are no effusions or pneumothoraces. IMPRESSION: Increased opacification of both lungs suggesting diffuse pulmonary infiltrates versus acute pulmonary edema. The lung volumes are diminished compared to the previous day. The pulmonary infiltrates appear more confluent. Dictated by: Dictated on workstation # [id number]
[2019-09-21] MEDS: KCL 20 MEQ TAB (K-DUR) PO SCH (06:05)
[2019-09-21] MEDS: MAGNESIUM 1 GM/100 ML IVPB 100 ML IV SCH (06:05)
[2019-09-21] MEDS: POTASSIUM CL 10MEQ/50ML IVPB 50 ML IV SCH (06:05)
--- NOTE | 2019-09-21 07:00 | NUR ---
TIME LINE NOTE 0648-2MG VERSED GIVEN PER DR. LEAL. 0650- 5CC PROPOFOL GIVEN PER DR. LEAL. 0650- HR-114, O2-91%, BP-122/58, R-23 0651-PT INTUBATED. SIZE 8ETT. COLOR CHANGE. BILATERAL BREATHE SOUNDS HEARD.
[2019-09-21] MEDS: ONDANSETRON 4 MG/2 ML (SDV) Z0FRAN IV PRN ×2 (09:45→19:20)
[2019-09-21] MEDS: DIGOXIN 0.125 MG (LANOXIN) TAB PO SCH (09:46)
[2019-09-21] MEDS: CALCIUM CARBONATE 500 MG (TUMS) TAB.CHEW PO PRN (09:47)
[2019-09-21] MEDS: ENOXAPARIN 40 MG/0.4 ML (LOVENOX) SYR SC SCH (09:47)
[2019-09-21] MEDS: DABIGATRAN 150 MG (PRADAXA) CAPSULE PO SCH ×2 (09:47→20:23)
[2019-09-21] MEDS: RT-ALBUTEROL/IPRATROPIUM 3 ML (DUONEB) VIAL INH SCH ×5 (09:51→22:48)
[2019-09-21] MEDS: PARoxetine 20 MG (PAXIL) TAB PO SCH (09:54)
--- NOTE | 2019-09-21 10:23 | History & Physical-Hospitalist ---
History of Present Illness HPI/Chief Complaint Pt is a 69yoCF with a PMH of COPD, pAF, CAD, HTN who presented to the ER due to shortness of breath. She states this started a couple of days ago but worsened last night. She attempted to use her home inhalers but that did not provide her any relief prompting her to seek evaluation in the ER. She was placed on BiPAP i n the ER with significant improvement in her breathing. She was found to have pneumonia on CXR and was admitted due to respiratory failure from pneumonia. This morning she states she is breathing much better though she is still on BiPAP. History is somewhat limited by BiPAP. Source: patient Date Seen 09/21/19 Time Seen by a Provider: 09:00 Attending Physician Ariel Conn MD PCP No,Local Physician Referring Physician Date of Admission Sep 21, 2019 at 00:10 Home Medications & Allergies Home Medications Reviewed patient Home Medication Reconciliation performed by pharmacy medication reconciliations air moving technician and/or nursing. Patients Allergies have been reviewed. Allergies Allergies Coded Allergies Sulfa (Sulfonamide Antibiotics) (Verified Allergy, Unknown, 04/26/19) morphine (Verified Allergy, Unknown, 04/26/19) Past Yphciqv-Pwnyua-Gymcbe Hx Past Med/Social Hx: Reviewed and Corrections made Patient Social History Alcohol Use: Denies Use Recreational Drug Use: No Smoking Status: Never a Smoker 2nd Hand Smoke Exposure: No Recent Foreign Travel: No Contact w/other who traveled: No Recent Hopitalizations: Yes (08/14-08/16/19 FOR POSSIBLE TIA) Recent Infectious Disease Expo: No Immunizations Up To Date Date of Pneumonia Vaccine: Sep 06, 2019 Date of Influenza Vaccine: May 06, 2019 Seasonal Allergies Seasonal Allergies: Yes Past Medical History Surgeries: Adenoidectomy, Appendectomy, Cardiac, Gallbladder, Hysterectomy, Oophorectomy, Pacemaker, Rectal, Tonsillectomy Cardiac: Atrial Fibrillation (paroxysmal), Cardiomyopathy, Coronary Artery Disease, Heart Attack, High Cholesterol, Hypertension, Irregular Heartbeat, Syncope : No Hysterectomy, Menopausal Gastrointestinal: Gastroesophageal Reflux Musculoskeletal: Arthritis Endocrine: Hypothyroidsim Psychosocial: Anxiety History of Blood Disorders: No Family History Reviewed Nursing Family Hx Cancer, Diabetes, Lung Disease Review of Systems Constitutional: No chills, No fever Respiratory: cough, dyspnea on exertion, short of breath Cardiovascular: No chest pain, No edema; Hx of Intervention Gastrointestinal: nausea All Other Systems Reviewed Negative Unless Noted: Yes (Negative excepted noted.) Physical Exam Physical Exam Vital Signs Vital Signs - First Documented 09/20/19 21:19 Temp 36.2 Pulse 112 Resp 30 B/P (MAP) 170/93 (118) Pulse Ox 99 O2 Delivery Simple Mask O2 Flow Rate 6.00 FiO2 100 Capillary Refill : Less Than 3 Seconds Height, Weight, BMI Height: '" Weight: lbs. oz. kg; 36.00 BMI Method: General Appearance: No Apparent Distress, Chronically ill, Obese HEENT: PERRL/EOMI, Moist Mucous Membranes; No Scleral Icterus (L), No Scleral Icterus (R) Neck: Normal Inspection, Supple Respiratory: Rhonci, Other (on BiPAP) Cardiovascular: Regular Rate, Rhythm, No Murmur Gastrointestinal: Normal Bowel Sounds, Non Tender, Soft Extremity: No Calf Tenderness, No Pedal Edema Neurologic/Psychiatric: Alert, Oriented x3, Normal Mood/Affect Skin: Normal Color, Warm/Dry Results Results/Procedures Labs Laboratory Tests 09/20/19 21:22 09/21/19 02:20 Patient resulted labs reviewed. Imaging: Reviewed Imaging Report Assessment/Plan Admission Diagnosis Acute Hypoxic Respiratory Failure Pneumonia COPD Continue on antibiotics Pulm consulted, appreciate recs Await cultures Wean off BiPAP as able Titrate oxygen to keep sats >90 pAF HTN CAD Continue home meds BP on the low side of normal so will hold home antihypertensives at this time Anxiety Depression Continue home meds Discharge planning: Social work consulted. May need SNF at discharge. Admission Status: Inpatient Order (span 2 midnights) Reason for Inpatient Admission: acute respiratory failure on BIPAP Diagnosis/Problems Diagnosis/Problems (1) Acute respiratory failure Status: Acute Qualifiers: Respiratory failure complication: hypoxia Qualified Codes: J96.01 - Acute respiratory failure with hypoxia (2) Pneumonia Status: Acute Qualifiers: Pneumonia type: due to unspecified organism Laterality: bilateral Lung location: unspecified part of lung Qualified Codes: J18.9 - Pneumonia, unspecified organism (3) Atrial fibrillation (4) CAD (coronary artery disease) (5) COPD (chronic obstructive pulmonary disease) (6) Debility (7) Hypertension (8) Anxiety Clinical Quality Measures DVT/VTE Risk/Contraindication: Risk Factor Score Per Nursin RFS Level Per Nursing on Admit: 4+=Very High DEN ROBLES MD Sep 21, 2019 10:22
[2019-09-21] MEDS: VANCOMYCIN INJECTION 1,500 MG in NS IV 500 ML 500 ML IV SCH (11:34)
[2019-09-21] MEDS: ALPRAZolam 0.25 MG (XANAX) TAB PO PRN (11:58)
[2019-09-21] MEDS: ACETAMINOPHEN 500 MG TAB (TYLENOL) PO PRN ×2 (14:11→22:41)
[2019-09-21] MEDS ORDERED: CALC600T12 PO (15:46)
[2019-09-21] MEDS ORDERED: PARO40TA3 PO (15:46)
[2019-09-21] MEDS ORDERED: MAGN400T39 PO (15:46)
[2019-09-21] MEDS ORDERED: DABI150C5 PO (15:46)
[2019-09-21] MEDS ORDERED: ZINC50TA58 PO (15:46)
[2019-09-21] MEDS ORDERED: CHOL400T PO (15:46)
[2019-09-21] MEDS ORDERED: DIGO-20 PO (15:46)
[2019-09-21] MEDS ORDERED: CALC-250 PO (15:46)
--- NOTE | 2019-09-21 15:55 | NUR ---
CM/SS: Visited with pt as to plan for discharge as per consult Plan: Undetermined at this time, pt was living at home prior to this hospital admission Summary: Pt is in bed at the time of the visit. This worker introduces herself to pt, and begins talking with pt to obtain information and pt begins crying and hyperventilating saying not to send her back there, not to send her back there. The RN is notified. This worker indicates that we will not send her back there, and that we just want to get a good plan in place when she goes home. She request that her friend be called. Friend Annie Graham , notified. She reports that she will be bringing pt some clothes and be up to visit soon. This worker request to talk with her when she arrives. Annie Graham arrives. She reports that pt could use some home care at the time of dismissal. Pt reports she will need oxygen as well. It is unclear if pt understands this workers role. Pt reports she was just fine before coming to hospital. Pt also does not have a primary physician, and reports she is looking for one. She is encouraged to obtain a primary physician. This worker will follow up once a time of discharge is identified.
--- NOTE | 2019-09-21 16:07 | NUR ---
SPOKE WITH THE PT (THERE WAS A MED LIST ON HER CHART) WENT THRU THE EXT MED HISTORY TO COMPLETE THE MED REC PT WAS HERE RECENTLY AND I COMPLETED THE MED REC AT THAT TIME. THE NEW MEDICATIONS THAT WERE ADDED ON HER DISCHARGE SHE HAS BEEN TAKING SO THOSE WERE KEPT ON, AND THE MEDS THAT WERE DC'D SHE HAS STOPPED TAKING. THE PT'S MED LIST IS NOT COMPLETE- I LET HER KNOW WHAT WAS MISSING SO SHE CAN UPDATE WHEN POSSIBLE OTC MEDS: CALCIUM CETIRIZINE VIT D IRON FLONASE MTV MAGNESIUM MELATONIN MIRALAX ZINC
[2019-09-21] MEDS: traZODone 100 MG (DESYREL) TAB PO SCH (20:23)
[2019-09-22] MEDS: VANCOMYCIN INJECTION 1,500 MG in NS IV 500 ML 500 ML IV SCH (00:11)
[2019-09-22] MEDS: NS IV 1000 ML 1,000 ML IV SCH (02:13)
[2019-09-22] MEDS: RT-ALBUTEROL/IPRATROPIUM 3 ML (DUONEB) VIAL INH SCH ×6 (02:43→22:24)
[2019-09-22 03:49] LABS: BASOPHILS % (AUTO) 0 % (0-10); EOSINOPHILS % (AUTO) 0 % (0-10); HEMATOCRIT 33 % (35-52); HEMOGLOBIN 10.4 G/DL (11.5-16.0); LYMPHOCYTES # (AUTO) 1.4 X 10^3 (1.0-4.0); LYMPHOCYTES % (AUTO) 16 % (12-44); MEAN CORPUSCULAR HEMOGLOBIN 31 PG (25-34); MEAN CORPUSCULAR HGB CONC 32 G/DL (32-36); MEAN CORPUSCULAR VOLUME 98 FL (80-99); MEAN PLATELET VOLUME 10.4 FL (7.4-10.4); MONOCYTES # (AUTO) 0.6 X 10^3 (0.0-1.0); MONOCYTES % (AUTO) 8 % (0-12); NEUTROPHILS # (AUTO) 6.3 X 10^3 (1.8-7.8); NEUTROPHILS % (AUTO) 76 % (42-75); PLATELET COUNT 162 10^3/uL (130-400); RED CELL DISTRIBUTION WIDTH 14.1 % (10.0-14.5); WHITE BLOOD COUNT 8.4 10^3/uL (4.3-11.0)
[2019-09-22] MEDS: VASOPRESSIN INJECTION 20 UNIT in NORMAL SALINE 100 ML IV SCH (03:55)
[2019-09-22 04:08] VITALS: BP 125/73
[2019-09-22] MEDS: PIPERACILLIN/TAZOBACTAM (BULK) 4.5 GM in NS (IVPB) 100 ML IV SCH (04:08)
[2019-09-22 04:18] LABS: BUN/CREATININE RATIO 17; CARBON DIOXIDE 17 MMOL/L (21-32); CHLORIDE 116 MMOL/L (98-107); CREATININE SERUM 0.92 MG/DL (0.60-1.30); GFR ESTIMATED > 60; GLUCOSE 139 MG/DL (70-105); MAGNESIUM 1.9 MG/DL (1.6-2.4); PHOSPHORUS 3.2 MG/DL (2.3-4.7); POTASSIUM 3.8 MMOL/L (3.6-5.0); SODIUM 144 MMOL/L (135-145)
[2019-09-22] MEDS: POTASSIUM CL 10MEQ/50ML IVPB 50 ML IV SCH ×5 (04:26→10:21)
[2019-09-22] MEDS: MAGNESIUM 1 GM/100 ML IVPB 100 ML IV SCH (04:26)
[2019-09-22] MEDS: KCL 20 MEQ TAB (K-DUR) PO SCH (04:26)
--- NOTE | 2019-09-22 04:43 | Pulmonary Progress Note ---
Subjective Date Seen by a Provider: Sep 22, 2019 Time Seen by a Provider: 04:38 Sepsis Event Evaluation Height, Weight, BMI Height: '" Weight: lbs. oz. kg; 36.00 BMI Method: Focused Exam Lactate Level 09/20/19 21:32: Lactic Acid Level 1.28 09/21/19 02:20: Lactic Acid Level 1.62 Time of Focused Exam: 23:50 Exam Exam Vital Signs Date Time Temp Pulse Resp B/P (MAP) Pulse Ox O2 Delivery O2 Flow Rate FiO2 09/22/19 04:08 36.8 90 20 125/73 (90) 98 Nasal Cannula 2.00 09/22/19 02:43 96 Nasal Cannula 2.00 09/22/19 01:00 100 09/21/19 23:21 37.1 68 20 109/60 (76) 96 Nasal Cannula 3.00 09/21/19 22:48 97 Nasal Cannula 2.00 09/21/19 20:00 Nasal Cannula 3.00 09/21/19 19:43 37.2 94 20 121/65 (83) 94 09/21/19 19:16 96 Nasal Cannula 2.00 09/21/19 19:00 95 09/21/19 15:29 97 Nasal Cannula 2.00 09/21/19 15:27 36.8 88 16 106/66 (79) 97 09/21/19 12:45 109 09/21/19 12:31 37.0 99 22 142/90 (107) 96 09/21/19 10:12 97 Nasal Cannula 3.00 09/21/19 08:00 97 NIV Bilevel 30 09/21/19 08:00 36.8 09/21/19 07:00 83 09/21/19 06:00 84 21 138/71 (93) 95 NIV Bilevel 30.00 09/21/19 05:00 79 15 135/80 (98) 96 NIV Bilevel 30.00 I & O 09/22/19 07:00 Intake Total 2550 ml Output Total 2400 ml Balance 150 ml Height & Weight Height: '" Weight: lbs. oz. kg; 36.00 BMI Method: General Appearance: No Apparent Distress, Chronically ill, Obese HEENT: PERRL/EOMI, Moist Mucous Membranes; No Scleral Icterus (L), No Scleral Icterus (R) Neck: Normal Inspection, Supple Respiratory: Rhonci, Other (on BiPAP) Cardiovascular: Regular Rate, Rhythm, No Murmur Capillary Refill: Less Than 3 Seconds Peripheral Pulses: 2+ Radial Pulses (R), 2+ Radial Pulses (L) Gastrointestinal: normal bowel sounds, non tender, soft Extremity: No Calf Tenderness, No Pedal Edema Neurologic/Psychiatric: Alert, Oriented x3, Normal Mood/Affect Skin: Normal Color, Warm/Dry Results Lab Laboratory Tests 09/20/19 21:22 09/21/19 02:20 09/22/19 03:41 Assessment/Plan Assessment/Plan Acute respiratory distress -Duonebs Pulmonary edema -MRSA swab pending -Influenza negative -D/C Zosyn/Vancomycin-- Doubt PNA or infection -UA is negative procalcitonin is neg, No fever, No leukocytosis -Repeat BNP and give 80mg of Lasix x 1 Nausea -improved w/ Zofran CP -likely due to anxiety -improved w/ fentanyl Anxiety CAD Afib -continue home meds DVT prophylaxis -SCDs in place -Pt on Pradaxa regularly CORA LEAL DO Sep 22, 2019 04:43
[2019-09-22] MEDS ORDERED: KCL 20 MEQ TAB (K-DUR) PO ONE (04:45)
[2019-09-22] MEDS ORDERED: FUROSEMIDE 40 MG/4 ML INJ (LASIX) IVP ONE (04:45)
--- NOTE | 2019-09-22 07:33 | Diagnostic Imaging Report ---
INDICATION: Sepsis, respiratory failure. TECHNIQUE: Single view chest 3:56 AM. CORRELATION STUDY: 09/21/2019 FINDINGS: Bilateral pulmonary infiltrates are again demonstrated. Appears slightly more pronounced over the right perihilar and basilar region. Heart size and mediastinum are stable. Vasculature is mildly congested. Right-sided unipolar pacemaker is stable. IMPRESSION: 1. A component of pulmonary vascular congestion. Edema does persist but overall is slightly less severe. However, there is a question of increasing infiltrate or edema in the right perihilar and basilar region. Dictated by: Dictated on workstation # [id number]
[2019-09-22 07:39] VITALS: BP 132/77
--- NOTE | 2019-09-22 09:49 | NUR ---
PATIENT WAS PLACED ON RA AT THIS TIME; PATIENT DOES NOT USE O2 AT HOME AND O2 SAT WAS 98% ON 2 L
--- NOTE | 2019-09-22 10:17 | Progress Note - Hospitalist ---
Subjective HPI/CC On Admission Date Seen by Provider: Sep 22, 2019 Time Seen by Provider: 10:12 Pt is a 69yoCF with a PMH of COPD, pAF, CAD, HTN who presented to the ER due to shortness of breath. She states this started a couple of days ago but worsened last night. She attempted to use her home inhalers but that did not provide her any relief prompting her to seek evaluation in the ER. She was placed on BiPAP in the ER with significant improvement in her breathing. She was found to have pneumonia on CXR and was admitted due to respiratory failure from pneumonia. This morning she states she is breathing much better though she is still on BiPAP. History is somewhat limited by BiPAP. Subjective/Events-last exam pt reports feeling much better. Still wheezy but improved. Focused Exam Lactate Level 09/20/19 21:32: Lactic Acid Level 1.28 09/21/19 02:20: Lactic Acid Level 1.62 Time of Focused Exam: 23:50 Objective Exam Vital Signs Vital Signs Date Time Temp Pulse Resp B/P (MAP) Pulse Ox O2 Delivery O2 Flow Rate FiO2 09/22/19 09:43 98 Nasal Cannula 2.00 09/22/19 07:39 36.1 81 18 132/77 (95) 09/21/19 08:00 30 Capillary Refill : Less Than 3 Seconds General Appearance: No Apparent Distress, WD/WN Respiratory: No Accessory Muscle Use, No Respiratory Distress, Wheezing (scant) Cardiovascular: Regular Rate, Rhythm, No Murmur Gastrointestinal: Normal Bowel Sounds, Soft Genital/Rectal: Other (catheter in place) Neurologic/Psychiatric: Alert, Oriented x3 Results/Procedures Lab Laboratory Tests 09/22/19 03:41 Patient resulted labs reviewed. Imaging: Reviewed Imaging Report Assessment/Plan Assessment and Plan Assess & Plan/Chief Complaint Acute Hypoxic Respiratory Failure Pneumonia COPD Pulm consulted, appreciate recs Await cultures DC antibiotics due to no leukocytosis and negative procalcitonin Off BiPAP Titrate oxygen to keep sats >90 pAF HTN CAD Continue home meds BP well controlled currently Anxiety Depression Continue home meds Discharge planning: Social work consulted. May need SNF vs IRU at discharge. Diagnosis/Problems Diagnosis/Problems (1) Acute respiratory failure Status: Acute Qualifiers: Respiratory failure complication: hypoxia Qualified Codes: J96.01 - Acute respiratory failure with hypoxia (2) Pneumonia Status: Acute Qualifiers: Pneumonia type: due to unspecified organism Laterality: bilateral Lung location: unspecified part of lung Qualified Codes: J18.9 - Pneumonia, unspecified organism (3) Atrial fibrillation (4) CAD (coronary artery disease) (5) COPD (chronic obstructive pulmonary disease) (6) Debility (7) Hypertension (8) Anxiety Clinical Quality Measures DVT/VTE Risk/Contraindication: Risk Factor Score Per Nursin RFS Level Per Nursing on Admit: 4+=Very High DEN ROBLES MD Sep 22, 2019 10:17
[2019-09-22] MEDS: DABIGATRAN 150 MG (PRADAXA) CAPSULE PO SCH ×2 (10:19→21:03)
[2019-09-22] MEDS: PARoxetine 20 MG (PAXIL) TAB PO SCH (10:19)
[2019-09-22] MEDS: DIGOXIN 0.125 MG (LANOXIN) TAB PO SCH (10:19)
[2019-09-22] MEDS: ENOXAPARIN 40 MG/0.4 ML (LOVENOX) SYR SC SCH (10:20)
[2019-09-22] MEDS: BENZONATATE 100 MG (TESSALON) CAPSULE PO SCH ×3 (10:20→21:03)
--- NOTE | 2019-09-22 11:00 | NUR ---
PT WAS WORKING WITH PHYSICAL THERAPY. THIS RN HEARD YELLING FOR AN RN STAT. ARRIVED IN ROOM TO FIND PT ON THE FLOOR, PHYSICAL THERAPIST HOLDING PTS HEAD. DR JAUREGUI AND ANOTHER RN CAME TO ASSIST. OXYGEN WAS APPLIED TO PT. DR ROBLES INFORMED. ORDERS RECEIVED. PT HAD BEEN GUIDED TO THE GROUND BY PHYSICAL THERAPIST.
--- NOTE | 2019-09-22 11:28 | Physical Therapy Evaluation ---
PT Evaluation-General Medical Diagnosis Admission Date Sep 21, 2019 at 00:10 Medical Diagnosis: pneumonia/sepsis/respiratory failure Onset Date: Sep 21, 2019 Therapy Diagnosis Therapy Diagnosis: generalized weakness/debility Precautions Precautions/Isolations: Fall Prevention, Standard Precautions Weight Bear Status Right Lower Extremity: Right Weight Bearing/Tolerated Left Lower Extremity: Left Weight Bearing/Tolerated Referral Physician: Cash Reason for Referral: Evaluation/Treatment Medical History Pertinent Medical History: Atrial Fib, CAD, COPD, Heart Failure, HTN, Hypothroidism, [place] Current History EMS secondary to respiratory distress Reviewed History: Yes Social History Home: Apartment Current Living Status: Alone Entry Into Home: Level Entry Prior Prior Level of Function SCALE: Activities may be completed with or without assistive devices. 1-Mfiqbvsdoo-angibjh completes the activity by him/herself with no assistance f rom a helper. 5-Set-up or Clean-up Assistance-helper sets up or cleans up; patient completes activity. Mouthcard assists only prior to or following the activity. 4-Supervision or Touching Assistance-helper provides verbal cues and/or touching/steadying and/or contact guard assistance as patient completes activity. Assistance may be provided throughout the activity or intermittently. 3-Partial/Moderate Assistance-helper does LESS THAN HALF the effort. Mouthcard lifts, holds or supports trunk or limbs, but provides less than half the effort. 2-Substantial/Maximal Assistance-helper does MORE THAN HALF the effort. Mouthcard lifts or holds trunk or limbs and provides more than half the effort. 1-Uicbmqznl-vnjafi does ALL the effort. Patient does none of the effort to complete the activity. Or, the assistance of 2 or more helpers is required for the patient to complete the activity. If activity was not attempted, code reason: 7-Patient Refused. 9-Not Applicable-not attempted and the patient did not perform the activity before the current illness, exacerbation or injury. 10-Not Attempted due to Environmental Limitations-(lack of equipment, weather restraints, etc.). 88-Not Attempted due to Medical Conditions or Safety Concerns. Bed Mobility: 6 Transfers (B,C,W/C): 6 Gait: 6 Stairs: 9 Indoor Mobility (Ambulation): Independent Stairs: Not Applicalbe Prior Devices Use: None PT Evaluation-Current Subjective Patient is in bed and agrees to PT. Pain Numeric Pain Scale: 0-No Pain Location: No Pain Reported Objective Patient Orientation: Normal For Age Attachments: IV ROM/Strength ROM Lower Extremities bilateral LE WFL Strength Lower Extremities 3/5 grossly bilateral LE Integumentary/Posture Integumentary refer to nursing notes Bowel Incontinence: No Bladder Incontinence: No Posture WFL Neuromuscular (Tone, Coordination, Reflexes) Noted "shaking" with mobility Sensory Vision: Functional Hearing: Functional Sensation Right Lower Extremit: Intact Sensation Left Lower Extremity: Intact Transfers Roll Left to Right (QC): 3 Sit to Lying (QC): 3 Lying to Sitting/Side of Bed(Q: 3 Sit to Stand (QC): 3 Gait Does the Patient Walk?: Yes Mode of Locomotion: Walk Anticipated Mode of Locomotion: Walk Walk 10 feet (QC): 3 Distance: 25' Gait Assistive Device: FWW Balance Sitting Static: Normal Sitting Dynamic: Normal Standing Static: Fair Standing Dynamic: Fair Assessment/Needs During treatment session, patient had syncopal episode and required a controlled lower to floor with nursing summoned. Nursing responded and performed vitals. Patient returned to bed with nursing continuing to monitor patient status. PT to address functional strength and mobility as patient tolerates. Rehab Potential: Fair PT Process Development Manager Goals Custodial Goals PT Process Development Manager Goals Time Frame: Oct 07, 2019 Roll Left & Right (QC): 5 Sit to Lying (QC): 5 Lying-Sitting on Side/Bed(QC): 5 Sit to Stand (QC): 5 Chair/Vsi-cz-Lbfve Xfer(QC): 5 Toilet Transfer (QC): 5 Does the Patient Walk: Yes Walk 10 feet (QC): 5 Walk 50ft with 2 Turns (QC): 5 Walk 150 ft (QC): 5 PT Plan Problem List Problem List: Activity Tolerance, Functional Strength, Safety, Balance, Gait, Transfer, Bed Mobility Treatment/Plan Treatment Plan: Continue Plan of Care Treatment Plan: Bed Mobility, Education, Functional Activity Luz, Functional Strength, Gait, Safety, Therapeutic Exercise, Transfers Treatment Duration: Oct 07, 2019 Frequency: 6 times per week Estimated Hrs Per Day: .25 hour per day Patient and/or Family Agrees t: Yes Time/GCodes Time In: 1041 Time Out: 1101 Total Billed Treatment Time: 20 Total Billed Treatment 1 visit EVHighC 20 min BARRY MORAN PT Sep 22, 2019 11:28
[2019-09-22] MEDS ORDERED: NITROGLYCERIN 2% OINT 1 GM UNIT DOSE PACKET TOP ONE (11:30)
[2019-09-22 12:00] VITALS: BP 99/64
--- NOTE | 2019-09-22 12:27 | Consultation-Cardiology ---
HPI-Cardiology Cardiology Consultation Date of Consultation 09/22/19 Date of Admission Time Seen by Provider: 10:12 Indication: Syncope HPI 69-year-old lady with history of coronary artery disease, atrial fibrillation, admitted for chest pain and shortness of breath, while she was receiving physical therapy she had a syncopal episode, she is known to have orthostatic hypotension. Post syncope just started to have chest pain, feeling tightness in her chest. No palpitation. Home Medications & Allergies Allergies: Coded Allergies: Sulfa (Sulfonamide Antibiotics) (Verified Allergy, Unknown, 04/26/19) morphine (Verified Allergy, Unknown, 04/26/19) Home Medication List Reviewed: Yes YYX-Upfxjy-Xqizol Hx Patient Social History Marital Status: Employed/Student: employed Alcohol Use: Denies Use Recreational Drug Use: No Smoking Status: Never a Smoker 2nd Hand Smoke Exposure: No Recent Foreign Travel: No Recent Infectious Disease Expo: No Recent Hopitalizations: Yes (08/14-08/16/19 FOR POSSIBLE TIA) Immunizations Up To Date Date of Pneumonia Vaccine: Sep 06, 2019 Date of Influenza Vaccine: May 06, 2019 Past Medical History Discussed below Family Medical History Significant Family History: Cancer, Diabetes, Lung Disease Family Medical Hx Noncontributory Review of Systems-General Review of Systems Constitutional: see HPI; No chills, No fever EENTM: see HPI, no symptoms reported Respiratory: see HPI, cough, dyspnea on exertion, short of breath Cardiovascular: see HPI, chest pain; No edema; Hx of Intervention; No palpitations; syncope; No vascular heart diseas, No other Gastrointestinal: see HPI, nausea Genitourinary: no symptoms reported, see HPI Musculoskeletal: no symptoms reported, see HPI Skin: no symptoms reported, see HPI Psychiatric/Neurological: Anxiety All Other Systems Reviewed Negative Unless Noted: Yes (Negative excepted noted.) Reviewed Test Results Reviewed Test Results Lab Laboratory Tests Test 09/22/19 03:41 09/22/19 11:34 Range/Units White Blood Count 8.4 4.3-11.0 10^3/uL Red Blood Count 3.35 L 4.35-5.85 10^6/uL Hemoglobin 10.4 L 11.5-16.0 G/DL Hematocrit 33 L 35-52 % Mean Corpuscular Volume 98 80-99 FL Mean Corpuscular Hemoglobin 31 25-34 PG Mean Corpuscular Hemoglobin Concent 32 32-36 G/DL Red Cell Distribution Width 14.1 10.0-14.5 % Platelet Count 162 130-400 10^3/uL Mean Platelet Volume 10.4 7.4-10.4 FL Neutrophils (%) (Auto) 76 H 42-75 % Lymphocytes (%) (Auto) 16 12-44 % Monocytes (%) (Auto) 8 0-12 % Eosinophils (%) (Auto) 0 0-10 % Basophils (%) (Auto) 0 0-10 % Neutrophils # (Auto) 6.3 1.8-7.8 X 10^3 Lymphocytes # (Auto) 1.4 1.0-4.0 X 10^3 Monocytes # (Auto) 0.6 0.0-1.0 X 10^3 Eosinophils # (Auto) 0.0 0.0-0.3 10^3/uL Basophils # (Auto) 0.0 0.0-0.1 10^3/uL Sodium Level 144 135-145 MMOL/L Potassium Level 3.8 3.6-5.0 MMOL/L Chloride Level 116 H 98-107 MMOL/L Carbon Dioxide Level 17 L 21-32 MMOL/L Anion Gap 11 5-14 MMOL/L Blood Urea Nitrogen 16 7-18 MG/DL Creatinine 0.92 0.60-1.30 MG/DL Estimat Glomerular Filtration Rate > 60 BUN/Creatinine Ratio 17 Glucose Level 139 H 70-105 MG/DL Calcium Level 8.0 L 8.5-10.1 MG/DL Phosphorus Level 3.2 2.3-4.7 MG/DL Magnesium Level 1.9 1.6-2.4 MG/DL B-Type Natriuretic Peptide 433.3 H <100.0 PG/ML Troponin I < 0.028 <0.028 NG/ML Physical Exam Physical Exam Vital Signs Vital Signs - First Documented 09/20/19 21:19 Temp 36.2 Pulse 112 Resp 30 B/P (MAP) 170/93 (118) Pulse Ox 99 O2 Delivery Simple Mask O2 Flow Rate 6.00 FiO2 100 Capillary Refill : Less Than 3 Seconds Height, Weight, BMI Height: '" Weight: lbs. oz. kg; 36.00 BMI Method: General Appearance: No Apparent Distress, WD/WN HEENT: PERRL/EOMI, Moist Mucous Membranes; No Scleral Icterus (L), No Scleral Icterus (R) Neck: Normal Inspection, Supple Respiratory: No Accessory Muscle Use, No Respiratory Distress, Wheezing (scant) Cardiovascular: No Gallop, No JVD, Systolic Murmur, Irregularly Irregular Gastrointestinal: Normal Bowel Sounds, Soft Genital/Rectal: Other (catheter in place) Extremity: No Calf Tenderness, No Pedal Edema Neurologic/Psychiatric: Alert, Oriented x3 Skin: Normal Color, Warm/Dry A/P-Cardiology Admission Diagnosis Chest pain Syncope Coronary artery disease Atrial fibrillation Assessment/Plan Chest pain nonspecific etiology, better at this time, received sublingual nitroglycerin. EKG did not show any acute abnormality, currently in atrial fibrillation. Continue to monitor Syncope, probably orthostatic hypotension, on the previous admission I stopped Lasix and lisinopril. I will add WILL hose at this time and monitor tolerance and response. Persistent atrial fibrillation, rate is controlled, monitor blood pressure. Status post transient episode of change in mental status with questionable TIA, no further episodes were reported. Coronary artery disease, multiple interventions in the past, last cardiac catheterization was done in February 2019 in [place] reported as nonobstructive disease with 40-50 percent stenosis in the proximal LAD, with mildly reduced cardiac output but no significant obstructive disease. Continue to monitor Congestive heart failure, last echo was done in April 2019 showing ejection fraction 55-65 percent, moderate mitral regurgitation, moderate aortic regurgitation, moderate to severe tricuspid regurgitation, PA pressure was not measured. 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 Right shoulder pain- management per medical services. Hypertension, currently borderline hypotensive. Continue to monitor. Hyperlipidemia, monitor lipids as outpatient. Gastroesophageal reflux disease maintained on PPI and Carafate. Anxiety, depression Clinical Quality Measures DVT/VTE Risk/Contraindication: Risk Factor Score Per Nursin RFS Level Per Nursing on Admit: 4+=Very High ADELAIDA RIGGS MD Sep 22, 2019 12:27
[2019-09-22] MEDS: ALPRAZolam 0.25 MG (XANAX) TAB PO PRN (12:34)
--- NOTE | 2019-09-22 12:40 | Occ Therapy Progress Note ---
Therapy Progress Note Order received for OT eval and treat. Chart review completed. Attempted evaluation x2 this am. On first attempt pt unavailable. On second attempt RN states to hold therapy this date. Pt had a syncopal episode this morning. Will continue to monitor and initiate therapy as appropriate. REAGAN KLEIN OT Sep 22, 2019 12:40
--- NOTE | 2019-09-22 14:29 | NUR ---
CM/SS: Visited with pt as to plan for discharge Plan: Pt would like to return home and not go to a skilled facility Summary: Pt mood seems better today, her friends are at the bedside, and is planning to go to 4th floor today and hopes to begin to work with physical therapy and occupational therapy. Will follow up with pt after weekend to determine plan for discharge.
[2019-09-22] MEDS: ACETAMINOPHEN 500 MG TAB (TYLENOL) PO PRN ×2 (14:56→22:18)
[2019-09-22 16:00] VITALS: BP 130/90
[2019-09-22 20:49] VITALS: BP 145/83
[2019-09-22] MEDS: traZODone 100 MG (DESYREL) TAB PO SCH (21:03)
[2019-09-22 23:20] VITALS: BP 120/67
[2019-09-23] MEDS: RT-ALBUTEROL/IPRATROPIUM 3 ML (DUONEB) VIAL INH SCH ×3 (03:11→22:03)
[2019-09-23 03:27] LABS: BASOPHILS % (AUTO) 0 % (0-10); EOSINOPHILS # (AUTO) 0.2 10^3/uL (0.0-0.3); EOSINOPHILS % (AUTO) 3 % (0-10); HEMATOCRIT 36 % (35-52); HEMOGLOBIN 11.5 G/DL (11.5-16.0); LYMPHOCYTES # (AUTO) 1.8 X 10^3 (1.0-4.0); LYMPHOCYTES % (AUTO) 24 % (12-44); MEAN CORPUSCULAR HEMOGLOBIN 31 PG (25-34); MEAN CORPUSCULAR HGB CONC 32 G/DL (32-36); MEAN CORPUSCULAR VOLUME 97 FL (80-99); MEAN PLATELET VOLUME 10.1 FL (7.4-10.4); MONOCYTES # (AUTO) 0.6 X 10^3 (0.0-1.0); MONOCYTES % (AUTO) 7 % (0-12); NEUTROPHILS % (AUTO) 67 % (42-75); PLATELET COUNT 176 10^3/uL (130-400); RED CELL DISTRIBUTION WIDTH 14.2 % (10.0-14.5); WHITE BLOOD COUNT 7.6 10^3/uL (4.3-11.0)
[2019-09-23 03:39] VITALS: BP 127/73
[2019-09-23 03:45] LABS: BUN/CREATININE RATIO 15; CALCIUM 8.8 MG/DL (8.5-10.1); CARBON DIOXIDE 25 MMOL/L (21-32); CHLORIDE 108 MMOL/L (98-107); CREATININE SERUM 0.84 MG/DL (0.60-1.30); GFR ESTIMATED > 60; GLUCOSE 89 MG/DL (70-105); POTASSIUM 3.8 MMOL/L (3.6-5.0); SODIUM 143 MMOL/L (135-145)
[2019-09-23] MEDS: MAGNESIUM 1 GM/100 ML IVPB 100 ML IV SCH (04:52)
[2019-09-23] MEDS: KCL 20 MEQ TAB (K-DUR) PO SCH (04:52)
[2019-09-23] MEDS: POTASSIUM CL 10MEQ/50ML IVPB 50 ML IV SCH (04:52)
--- NOTE | 2019-09-23 05:37 | Pulmonary Progress Note ---
Subjective Time Seen by a Provider: 05:36 Subjective/Events-last exam No complications noted. Sepsis Event Evaluation Height, Weight, BMI Height: '" Weight: lbs. oz. kg; 36.00 BMI Method: Focused Exam Lactate Level 09/20/19 21:32: Lactic Acid Level 1.28 09/21/19 02:20: Lactic Acid Level 1.62 Time of Focused Exam: 23:50 Exam Exam Vital Signs Date Time Temp Pulse Resp B/P (MAP) Pulse Ox O2 Delivery O2 Flow Rate FiO2 09/23/19 03:39 36.4 86 20 127/73 (91) 97 Nasal Cannula 2.00 09/23/19 03:11 98 Nasal Cannula 2.00 09/23/19 01:00 108 09/22/19 23:20 37.0 109 20 120/67 (84) 95 Nasal Cannula 2.00 09/22/19 22:22 98 Nasal Cannula 2.00 09/22/19 20:50 96 Nasal Cannula 2.00 09/22/19 20:49 36.6 114 16 145/83 (103) 97 Nasal Cannula 2.00 09/22/19 19:20 98 Nasal Cannula 2.00 09/22/19 19:00 122 09/22/19 16:00 37.0 104 22 130/90 (103) 97 Nasal Cannula 2.00 09/22/19 14:30 97 Nasal Cannula 1.00 09/22/19 13:00 86 09/22/19 12:00 36.5 109 21 99/64 (76) 97 Nasal Cannula 2.00 09/22/19 09:43 98 Nasal Cannula 2.00 09/22/19 08:00 Nasal Cannula 2.00 09/22/19 07:39 36.1 81 18 132/77 (95) 96 Nasal Cannula 2.00 09/22/19 06:41 83 I & O 09/23/19 07:00 Intake Total 2305 ml Output Total 9575 ml Balance -7270 ml Height & Weight Height: '" Weight: lbs. oz. kg; 36.00 BMI Method: General Appearance: No Apparent Distress, WD/WN HEENT: PERRL/EOMI, Moist Mucous Membranes; No Scleral Icterus (L), No Scleral Icterus (R) Neck: Normal Inspection, Supple Respiratory: No Accessory Muscle Use, No Respiratory Distress, Wheezing (scant) Cardiovascular: No Gallop, No JVD, Systolic Murmur, Irregularly Irregular Capillary Refill: Less Than 3 Seconds Peripheral Pulses: 2+ Radial Pulses (R), 2+ Radial Pulses (L) Gastrointestinal: normal bowel sounds, non tender, soft Extremity: No Calf Tenderness, No Pedal Edema Neurologic/Psychiatric: Alert, Oriented x3 Skin: Normal Color, Warm/Dry Results Lab Laboratory Tests 09/22/19 03:41 09/23/19 03:11 Assessment/Plan Assessment/Plan Acute respiratory distress-- resolved -Duonebs Pulmonary edema - improved -MRSA swab pending -Influenza negative Hemoptysis -Was on Pradaxa -- cont to hold -CT scan pending -Consider bronch if hemoptysis does not resolve. Nausea -improved w/ Zofran CP -likely due to anxiety -improved w/ fentanyl Anxiety CAD Afib -continue home meds DVT prophylaxis -SCDs in place -Pt on Pradaxa regularly CORA LEAL DO Sep 23, 2019 05:37
--- NOTE | 2019-09-23 06:10 | NUR ---
TO ROOM 422 VIA BED FROM [facility] ACCOMPANIED BY ARMOND Roldan. Resting quietly. O2 at 2L.
--- NOTE | 2019-09-23 07:25 | Diagnostic Imaging Report ---
Indication: Dyspnea. Comparison: 09/22/2019. Discussion: Single portable upright view of the chest was obtained. Stable normal heart size. Suspected pulmonary edema is decreased. No pleural fluid or pneumothorax. Right-sided pacemaker stable. No osseous abnormality. Impression: 1. Decreasing pulmonary infiltrates. Dictated by: Dictated on workstation # [id number]
[2019-09-23 08:00] VITALS: BP 120/64
[2019-09-23] MEDS: PARoxetine 20 MG (PAXIL) TAB PO SCH (08:12)
[2019-09-23] MEDS: DABIGATRAN 150 MG (PRADAXA) CAPSULE PO SCH (08:12)
[2019-09-23] MEDS: BENZONATATE 100 MG (TESSALON) CAPSULE PO SCH ×3 (08:12→20:17)
[2019-09-23] MEDS: DIGOXIN 0.125 MG (LANOXIN) TAB PO SCH (08:12)
--- NOTE | 2019-09-23 08:41 | Cardiology Progress Note ---
Subjective Date Seen by Provider: Sep 23, 2019 Time Seen by Provider: 08:39 Subjective/Events-last exam Patient is laying down in bed, feeling better, having some musculoskeletal chest pain with coughing. Review of Systems HEENT: No Head Aches, No Visual Changes, No Eye Pain, No Ear Pain, No Dysphasia, No Sinus Congestion, No Post Nasal Drip, No Sore Throat, No Other Pulmonary: Dyspnea, Cough; No Pleuritic Chest Pain, No Other Cardiovascular: No: Chest Pain, Palpitations, Orthopnea, Paroxysmal Noc. Dyspnea, Edema, Lt Headedness, Other Focused Exam Lactate Level 09/20/19 21:32: Lactic Acid Level 1.28 09/21/19 02:20: Lactic Acid Level 1.62 Time of Focused Exam: 23:50 Objective-Cardiology Exam Last Set of Vital Signs Vital Signs 09/21/19 09/23/19 08:00 08:00 Temp 37.0 Pulse 77 Resp 18 B/P (MAP) 120/64 (82) Pulse Ox 96 O2 Delivery Nasal Cannula O2 Flow Rate 2.00 FiO2 30 Capillary Refill : Less Than 3 Seconds I&O Intake and Output 09/23/19 00:00 Intake Total 4505 ml Output Total 9900 ml Balance -5395 ml Intake Oral 1755 ml IV Total 2750 ml Output Urine Total 9400 ml Post Void Residual 500 ml # Voids 3 General: Alert, Oriented X3, Cooperative HEENT: Atraumatic, PERRLA Neck: Supple, No JVD, No Thyromegaly Lungs: Clear to Auscultation, Normal Air Movement Heart: Normal S1, Normal S2, No Murmurs, Other (Atrial fibrillation) Abdomen: Normal Bowel Sounds, Soft, No Tenderness, No Hepatosplenomegaly, No Masses Extremities: No Clubbing, No Cyanosis, No Edema, Normal Pulses, No Tenderness/Swelling Skin: No Rashes, No Breakdown, No Significant Lesion Neuro: Normal Gait, Normal Speech, Strength at 5/5 X4 Ext, Normal Tone, Sensation Intact Psych/Mental Status: Mental Status NL, Mood NL Results Lab Laboratory Tests 09/23/19 03:11 A/P-Cardiology Admission Diagnosis Chest pain Syncope Coronary artery disease Atrial fibrillation Assessment/Plan Chest pain nonspecific etiology, appeared to be musculoskeletal in nature. Associated with coughing. Better at this time Syncope, probably orthostatic hypotension, better after stopping Lasix and lisinopril, using WILL hose, continue to monitor Persistent atrial fibrillation, rate is controlled, I will use low-dose beta blockers and evaluate tolerance and response Status post transient episode of change in mental status with questionable TIA, no further episodes were reported. Coronary artery disease, multiple interventions in the past, last cardiac catheterization was done in February 2019 in [place] reported as nonobstructive disease with 40-50 percent stenosis in the proximal LAD, with mildly reduced cardiac output but no significant obstructive disease. Continue to monitor Congestive heart failure, last echo was done in April 2019 showing ejection fraction 55-65 percent, moderate mitral regurgitation, moderate aortic regurgitation, moderate to severe tricuspid regurgitation, PA pressure was not measured. 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 Hypertension, blood pressure is better. Continue to monitor Hyperlipidemia, monitor lipids as outpatient. Gastroesophageal reflux disease maintained on PPI and Carafate. Anxiety, depression Clinical Quality Measures DVT/VTE Risk/Contraindication: Risk Factor Score Per Nursin RFS Level Per Nursing on Admit: 4+=Very High ADELAIDA RIGGS MD Sep 23, 2019 08:41
[2019-09-23] MEDS: ACETAMINOPHEN 500 MG TAB (TYLENOL) PO PRN (11:02)
--- NOTE | 2019-09-23 11:02 | Physical Therapy Daily Note ---
PT Daily Note-Current Subjective Pt. asleep in bed but awakens easily. States she is very tired today. Agrees to sit up in chair with therapy, declines ambulation stating "yesterday I passed out on them." Mental Status Attachments: Oxygen Transfers SCALE: Activities may be completed with or without assistive devices. 3-Ppcyfrwghp-qzmovqb completes the activity by him/herself with no assistance from a helper. 5-Set-up or Clean-up Assistance-helper sets up or cleans up; patient completes activity. Transfer assists only prior to or following the activity. 4-Supervision or Touching Assistance-helper provides verbal cues and/or touching/steadying and/or contact guard assistance as patient completes activity. Assistance may be provided throughout the activity or intermittently. 3-Partial/Moderate Assistance-helper does LESS THAN HALF the effort. Transfer lifts, holds or supports trunk or limbs, but provides less than half the effort. 2-Substantial/Maximal Assistance-helper does MORE THAN HALF the effort. Transfer lifts or holds trunk or limbs and provides more than half the effort. 6-Enrpwqwlc-iiymdu does ALL the effort. Patient does none of the effort to co mplete the activity. Or, the assistance of 2 or more helpers is required for the patient to complete the activity. If activity was not attempted, code reason: 7-Patient Refused. 9-Not Applicable-not attempted and the patient did not perform the activity before the current illness, exacerbation or injury. 10-Not Attempted due to Environmental Limitations-(lack of equipment, weather restraints, etc.). 88-Not Attempted due to Medical Conditions or Safety Concerns. Lying to Sitting/Side of Bed(Q: 6 Sit to Stand (QC): 4 Chair/Fci-jz-Kuacm Xfer(QC): 4 Weight Bearing Right Lower Extremity: Right Weight Bearing/Tolerated Left Lower Extremity: Left Weight Bearing/Tolerated Treatments transfers Assessment Current Status: Good Progress Pt. declines ambulation today but did very well with transfers bed to chair requiring only CGA. Pt. does get SOB very quickly with movement and did have several bouts of coughing throughout session. Pt. up in bedside chair post ses merrill with call light and all needs met. PT Business Support Assistant Goals Skilled Nursing Goals PT Skilled Nursing Goals Time Frame: Oct 07, 2019 Roll Left & Right (QC): 5 Sit to Lying (QC): 5 Lying-Sitting on Side/Bed(QC): 5 Sit to Stand (QC): 5 Chair/Jgf-sj-Zkyej Xfer(QC): 5 Toilet Transfer (QC): 5 Does the Patient Walk: Yes Walk 10 feet (QC): 5 Walk 50ft with 2 Turns (QC): 5 Walk 150 ft (QC): 5 PT Plan Treatment/Plan Treatment Plan: Continue Plan of Care Treatment Plan: Bed Mobility, Education, Functional Activity Luz, Functional Strength, Gait, Safety, Therapeutic Exercise, Transfers Treatment Duration: Oct 07, 2019 Frequency: 6 times per week Estimated Hrs Per Day: .25 hour per day Patient and/or Family Agrees t: Yes Time/GCodes Time In: 1038 Time Out: 1048 Total Billed Treatment Time: 10 Total Billed Treatment 1, FA 10' YAMINI HESS PT Sep 23, 2019 11:02
--- NOTE | 2019-09-23 11:17 | Progress Note - Hospitalist ---
Subjective HPI/CC On Admission Date Seen by Provider: Sep 23, 2019 Time Seen by Provider: 11:10 Pt is a 69yoCF with a PMH of COPD, pAF, CAD, HTN who presented to the ER due to shortness of breath. She states this started a couple of days ago but worsened last night. She attempted to use her home inhalers but that did not provide her any relief prompting her to seek evaluation in the ER. She was placed on BiPAP in the ER with significant improvement in her breathing. She was found to have pneumonia on CXR and was admitted due to respiratory failure from pneumonia. This morning she states she is breathing much better though she is still on BiPAP. History is somewhat limited by BiPAP. Subjective/Events-last exam Pt reports new onset of hemoptysis and chest tightness. ADvised her we will order a CT chest and hold her blood thinners. Focused Exam Lactate Level 09/20/19 21:32: Lactic Acid Level 1.28 09/21/19 02:20: Lactic Acid Level 1.62 Time of Focused Exam: 23:50 Objective Exam Vital Signs Vital Signs Date Time Temp Pulse Resp B/P (MAP) Pulse Ox O2 Delivery O2 Flow Rate FiO2 09/23/19 08:00 37.0 77 18 120/64 (82) 96 Nasal Cannula 2.00 09/21/19 08:00 30 Capillary Refill : Less Than 3 Seconds General Appearance: No Apparent Distress, Anxious, Chronically ill Respiratory: No Respiratory Distress, Wheezing Cardiovascular: Regular Rate, Rhythm, No Murmur Gastrointestinal: Normal Bowel Sounds, Soft Neurologic/Psychiatric: Alert, Oriented x3 Results/Procedures Lab Laboratory Tests 09/23/19 03:11 Patient resulted labs reviewed. Imaging: Reviewed Imaging Report Assessment/Plan Assessment and Plan Assess & Plan/Chief Complaint Acute Hypoxic Respiratory Failure Pneumonia COPD hemoptysis Pulm consulted, appreciate recs MRSA screen negative, Flu negative Off BiPAP Titrate oxygen to keep sats >[address] Cha, will hold Pradaxa May need bronchoscopy pAF HTN CAD Orthostatic Hypotension Continue home meds BP well controlled currently Had syncopal episode yesterday, [facility] ordered Anxiety Depression Continue home meds Discharge planning: Social work consulted. May need SNF vs IRU at discharge. Diagnosis/Problems Diagnosis/Problems (1) Hemoptysis (2) Acute respiratory failure Status: Acute Qualifiers: Respiratory failure complication: hypoxia Qualified Codes: J96.01 - Acute respiratory failure with hypoxia (3) Pneumonia Status: Acute Qualifiers: Pneumonia type: due to unspecified organism Laterality: bilateral Lung location: unspecified part of lung Qualified Codes: J18.9 - Pneumonia, unspecified organism (4) Atrial fibrillation (5) CAD (coronary artery disease) (6) COPD (chronic obstructive pulmonary disease) Qualifiers: COPD type: COPD with acute exacerbation Qualified Codes: J44.1 - Chronic obstructive pulmonary disease with (acute) exacerbation (7) Debility (8) Hypertension (9) Anxiety Clinical Quality Measures DVT/VTE Risk/Contraindication: Risk Factor Score Per Nursin RFS Level Per Nursing on Admit: 4+=Very High DEN ROBLES MD Sep 23, 2019 11:17
[2019-09-23 12:00] VITALS: BP 132/70
[2019-09-23] MEDS ORDERED: HOLD METFORMIN - RECEIVED CONTRAST 20 ML VIAL IV SCH (12:00)
[2019-09-23] MEDS ORDERED: CATHETER FLUSH 10 ML SYR IV PRN (12:00)
[2019-09-23] MEDS ORDERED: IOHEXOL 350 MG/ML 100 ML (OMNIPAQUE 350) VIAL IV ONE (12:00)
[2019-09-23] MEDS ORDERED: NS 100 ML (IVPB) BAG IV ONE (12:00)
--- NOTE | 2019-09-23 12:16 | Diagnostic Imaging Report ---
PROCEDURE: CT angiography of the chest with contrast. TECHNIQUE: Multiple contiguous axial images were obtained through the chest after uneventful bolus administration of intravenous contrast. 3D reconstructed CTA MIP acquisitions were also performed. Auto Exposure Controls were utilized during the CT exam to meet ALARA standards for radiation dose reduction. INDICATION: Hemoptysis. Chest pain. Evaluate for pulmonary embolus. COMPARISON: 09/06/2019. FINDINGS: This helical CT pulmonary angiogram is diagnostic to the subsegmental level branches of the pulmonary artery and demonstrates no pulmonary emboli. The heart and great vessels are unremarkable. There is no pericardial effusion. There is no axillary, mediastinal, or hilar adenopathy. Bilateral moderate pleural effusions are visualized by basilar opacities. No focal pulmonary masses or nodules. No central endobronchial obstructing lesions. No pneumothorax. Osseous structures appear normal. Limited views of the upper abdomen are unremarkable. IMPRESSION: 1. No acute pulmonary embolus. 2. Bilateral moderate pleural effusions with bibasilar opacities. These may represent components of atelectasis and/or infection. Dictated by: Dictated on workstation # [id number]
[2019-09-23] MEDS: ALPRAZolam 0.25 MG (XANAX) TAB PO PRN (13:41)
[2019-09-23 15:28] VITALS: BP 107/55
[2019-09-23 19:45] VITALS: BP 137/66
[2019-09-23] MEDS: traZODone 100 MG (DESYREL) TAB PO SCH (20:17)
[2019-09-24 00:05] VITALS: BP 165/79
[2019-09-24] MEDS: ACETAMINOPHEN 500 MG TAB (TYLENOL) PO PRN ×3 (00:16→23:59)
[2019-09-24] MEDS: RT-ALBUTEROL/IPRATROPIUM 3 ML (DUONEB) VIAL INH SCH ×6 (02:10→22:15)
[2019-09-24 03:47] VITALS: BP 122/58
[2019-09-24 05:40] LABS: BASOPHILS % (AUTO) 0 % (0-10); EOSINOPHILS # (AUTO) 0.3 10^3/uL (0.0-0.3); EOSINOPHILS % (AUTO) 3 % (0-10); HEMATOCRIT 37 % (35-52); HEMOGLOBIN 11.9 G/DL (11.5-16.0); LYMPHOCYTES # (AUTO) 2.2 X 10^3 (1.0-4.0); LYMPHOCYTES % (AUTO) 28 % (12-44); MEAN CORPUSCULAR HEMOGLOBIN 31 PG (25-34); MEAN CORPUSCULAR HGB CONC 32 G/DL (32-36); MEAN CORPUSCULAR VOLUME 96 FL (80-99); MEAN PLATELET VOLUME 10.1 FL (7.4-10.4); MONOCYTES # (AUTO) 0.6 X 10^3 (0.0-1.0); MONOCYTES % (AUTO) 8 % (0-12); NEUTROPHILS # (AUTO) 4.8 X 10^3 (1.8-7.8); NEUTROPHILS % (AUTO) 61 % (42-75); PLATELET COUNT 228 10^3/uL (130-400); WHITE BLOOD COUNT 7.9 10^3/uL (4.3-11.0)
[2019-09-24 06:05] LABS: BUN/CREATININE RATIO 12; CALCIUM 8.7 MG/DL (8.5-10.1); CARBON DIOXIDE 25 MMOL/L (21-32); CHLORIDE 106 MMOL/L (98-107); GFR ESTIMATED > 60; GLUCOSE 97 MG/DL (70-105); POTASSIUM 3.6 MMOL/L (3.6-5.0); SODIUM 143 MMOL/L (135-145)
[2019-09-24] MEDS: POTASSIUM CL 10MEQ/50ML IVPB 50 ML IV SCH (06:08)
[2019-09-24] MEDS: MAGNESIUM 1 GM/100 ML IVPB 100 ML IV SCH (06:09)
[2019-09-24] MEDS: KCL 20 MEQ TAB (K-DUR) PO SCH (06:10)
[2019-09-24] MEDS ORDERED: KCL 20 MEQ TAB (K-DUR) PO ONE (06:15)
[2019-09-24 08:00] VITALS: BP 160/84
[2019-09-24] MEDS: PARoxetine 20 MG (PAXIL) TAB PO SCH (08:46)
[2019-09-24] MEDS: BENZONATATE 100 MG (TESSALON) CAPSULE PO SCH ×3 (08:46→20:06)
[2019-09-24] MEDS: DIGOXIN 0.125 MG (LANOXIN) TAB PO SCH (08:47)
[2019-09-24] MEDS: CALCIUM CARBONATE 500 MG (TUMS) TAB.CHEW PO PRN (08:47)
--- NOTE | 2019-09-24 10:24 | Cardiology Progress Note ---
Subjective Date Seen by Provider: Sep 24, 2019 Time Seen by Provider: 10:22 Subjective/Events-last exam Patient is laying down in bed, complaining of cough and mild hemoptysis, epigastric pain usually after eating and it is reproducible Review of Systems General: No Chills, No Night Sweats, No Fatigue, No Malaise, No Appetite, No Other HEENT: No Head Aches, No Visual Changes, No Eye Pain, No Ear Pain, No Dysphasia, No Sinus Congestion, No Post Nasal Drip, No Sore Throat, No Other Pulmonary: Dyspnea, Cough; No Pleuritic Chest Pain, No Other Cardiovascular: No: Chest Pain, Palpitations, Orthopnea, Paroxysmal Noc. Dyspn ea, Edema, Lt Headedness, Other Focused Exam Time of Focused Exam: 23:50 Objective-Cardiology Exam Last Set of Vital Signs Vital Signs 09/21/19 09/24/19 08:00 08:00 Temp 37.0 Pulse 91 Resp 20 B/P (MAP) 160/84 (109) Pulse Ox 98 O2 Delivery Nasal Cannula O2 Flow Rate 1.00 FiO2 30 Capillary Refill : Less Than 3 Seconds I&O Intake and Output 09/24/19 00:00 Intake Total 1650 ml Output Total 1000 ml Balance 650 ml Intake Oral 1650 ml Output Urine Total 1000 ml # Voids 1 # Bowel Movements 2 General: Alert, Oriented X3, Cooperative HEENT: Atraumatic, PERRLA Neck: Supple, No JVD, No Thyromegaly Lungs: Clear to Auscultation, Normal Air Movement Heart: Normal S1, Normal S2, No Murmurs, Other (Atrial fibrillation) Abdomen: Normal Bowel Sounds, Soft, No Tenderness, No Hepatosplenomegaly, No Masses Extremities: No Clubbing, No Cyanosis, No Edema, Normal Pulses, No Tenderness/Swelling Skin: No Rashes, No Breakdown, No Significant Lesion Neuro: Normal Gait, Normal Speech, Strength at 5/5 X4 Ext, Normal Tone, Sensation Intact Psych/Mental Status: Mental Status NL, Mood NL Results Lab Laboratory Tests 09/24/19 04:58 A/P-Cardiology Admission Diagnosis Chest pain Syncope Coronary artery disease Atrial fibrillation Assessment/Plan Chest pain nonspecific etiology, epigastric pain reproducible, worse with coughing and having discomfort in the upper abdominal area after eating. I will start Protonix. Recommend evaluating EGD. Cough and hemoptysis, possible bronchoscopy, managed by Dr. Cha Syncope, probably orthostatic hypotension, better after stopping Lasix and l isinopril, using WILL hose, continue to monitor Persistent atrial fibrillation, rate is controlled, tolerating low-dose beta blockers Hypertension, we discussed her management plan, I explained to her that I prefer moderately elevated blood pressure over recurrent orthostatic hypotension and syncope. We'll continue on the low-dose beta blockers and monitor closely. Status post transient episode of change in mental status with questionable TIA, no further episodes were reported. Coronary artery disease, multiple interventions in the past, last cardiac catheterization was done in February 2019 in [place] reported as nonobstructive disease with 40-50 percent stenosis in the proximal LAD, with mildly reduced cardiac output but no significant obstructive disease. Continue to monitor Congestive heart failure, last echo was done in April 2019 showing ejection fraction 55-65 percent, moderate mitral regurgitation, moderate aortic regurgitation, moderate to severe tricuspid regurgitation, PA pressure was not measured. 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 Hypertension, blood pressure is better. Continue to monitor Hyperlipidemia, monitor lipids as outpatient. Gastroesophageal reflux disease maintained on PPI and Carafate. Anxiety, depression Clinical Quality Measures DVT/VTE Risk/Contraindication: Risk Factor Score Per Nursin RFS Level Per Nursing on Admit: 4+=Very High ADELAIDA RIGGS MD Sep 24, 2019 10:24
[2019-09-24] MEDS ORDERED: PANTOPRAZOLE 40 MG (PROTONIX) TAB PO NR (10:30)
--- NOTE | 2019-09-24 11:40 | Progress Note - Hospitalist ---
Subjective HPI/CC On Admission Date Seen by Provider: Sep 24, 2019 Time Seen by Provider: 11:35 Pt is a 69yoCF with a PMH of COPD, pAF, CAD, HTN who presented to the ER due to shortness of breath. She states this started a couple of days ago but worsened last night. She attempted to use her home inhalers but that did not provide her any relief prompting her to seek evaluation in the ER. She was placed on BiPAP in the ER with significant improvement in her breathing. She was found to have pneumonia on CXR and was admitted due to respiratory failure from pneumonia. This morning she states she is breathing much better though she is still on BiPAP. History is somewhat limited by BiPAP. Subjective/Events-last exam Pt reports feeling better today. Having some difficulty swallowing. States this has been going on for a while and feels like there is something there. Focused Exam Time of Focused Exam: 23:50 Objective Exam Vital Signs Vital Signs Date Time Temp Pulse Resp B/P (MAP) Pulse Ox O2 Delivery O2 Flow Rate FiO2 09/24/19 10:39 94 Room Air 09/24/19 08:00 1.00 09/24/19 08:00 37.0 91 20 160/84 (109) 09/21/19 08:00 30 Capillary Refill : Less Than 3 Seconds General Appearance: No Apparent Distress, Chronically ill Respiratory: Lungs Clear, No Respiratory Distress Cardiovascular: Regular Rate, Rhythm, No Murmur Gastrointestinal: Normal Bowel Sounds, No Pulsatile Mass, Non Tender, Soft; No Distended, No Guarding, No Rebound Neurologic/Psychiatric: Alert, Oriented x3 Results/Procedures Lab Laboratory Tests 09/24/19 04:58 Patient resulted labs reviewed. Imaging: Reviewed Imaging Report Assessment/Plan Assessment and Plan Assess & Plan/Chief Complaint Acute Hypoxic Respiratory Failure Pneumonia COPD hemoptysis Pulm consulted, appreciate recs MRSA screen negative, Flu negative Titrate oxygen to keep sats >90 May need bronchoscopy for hemoptysis Hold anticoagulation pAF HTN CAD Orthostatic Hypotension Continue home meds BP well controlled currently No further syncopal episodes Anxiety Depression Continue home meds Dysphagia Consulted surgery for possible EGD Appreciate assistance Discharge planning: Social work consulted. May need SNF vs IRU at discharge. Diagnosis/Problems Diagnosis/Problems (1) Hemoptysis (2) Acute respiratory failure Status: Acute Qualifiers: Respiratory failure complication: hypoxia Qualified Codes: J96.01 - Acute respiratory failure with hypoxia (3) Pneumonia Status: Acute Qualifiers: Pneumonia type: due to unspecified organism Laterality: bilateral Lung location: unspecified part of lung Qualified Codes: J18.9 - Pneumonia, unspecified organism (4) Atrial fibrillation (5) CAD (coronary artery disease) (6) COPD (chronic obstructive pulmonary disease) Qualifiers: COPD type: COPD with acute exacerbation Qualified Codes: J44.1 - Chronic obstructive pulmonary disease with (acute) exacerbation (7) Debility (8) Hypertension (9) Anxiety Clinical Quality Measures DVT/VTE Risk/Contraindication: Risk Factor Score Per Nursin RFS Level Per Nursing on Admit: 4+=Very High DEN ROBLES MD Sep 24, 2019 11:40
[2019-09-24 12:00] VITALS: BP 120/72
--- NOTE | 2019-09-24 12:02 | Consultation - Surgery ---
SCOUT GRANADOS [facility] 09/24/19 1202: History of Present Illness History of Present Illness Patient Consulted On(jenelle/time) 09/24/19 11:59 Date Seen by Provider: Sep 24, 2019 Time Seen by Provider: 10:50 Reason for Visit: Dysphagia History of Present Illness Nubia is a 69 year old female that presented to [facility] for respiratory issues. General surgery was consulted by Dr. Castrejon due to the patient having dysphagia. The patient started having difficulty swallowing with globus sensation about a year ago. She feels that food is getting stuck midway down and again in the epigastric area. The epigastric pain gets to a 5/10 at times. The feeling is worse with food and is better without eating. The patient can tolerate liquids. Denies ever having issues of GERD like symptoms. Pertinent medical history includes respiratory issues and cholecystectomy. Allergies and Home Medications Allergies Coded Allergies: Sulfa (Sulfonamide Antibiotics) (Verified Allergy, Unknown, 04/26/19) morphine (Verified Allergy, Unknown, 04/26/19) Home Medications Alprazolam 0.25 Mg Tablet, 0.25 MG PO BID, (Reported) Calcium Carbonate 600 Mg Tablet, 600 MG PO DAILY, (Reported) Cetirizine HCl 10 Mg Tablet, 10 MG PO DAILY PRN for ALLERGIES, (Reported) Cholecalciferol (Vitamin D3) 125 Mcg Tablet, 125 MCG PO DAILY, (Reported) Dabigatran Etexilate Mesylate 150 Mg Capsule, 150 MG PO BID, (Reported) Digoxin 125 Mcg Tablet, 125 MCG PO DAILY, (Reported) Ferrous Sulfate 325 Mg Tablet, 325 MG PO DAILY, (Reported) Fluticasone Propionate 16 Gm Kindred.susp, 2 SPRAYS NS DAILY PRN for ALLERGIES, (Reported) Folic Acid/Mv,Fe,Other Min 1 Each Tablet, 1 EACH PO DAILY, (Reported) Magnesium Oxide 400 Mg Tablet, 400 MG PO DAILY, (Reported) Melatonin/Pyridoxine HCl (B6) 1 Each Tablet, 1 EACH PO HS, (Reported) Metoprolol Tartrate 25 Mg Tablet, 12.5 MG PO BID, (Reported) TAKES 1/2 (25MG) TABLET Paroxetine HCl 40 Mg Tablet, 40 MG PO DAILY, (Reported) Polyethylene Glycol 3350 17 Gm Powd.pack, 17 GM PO DAILY PRN for CONSTIPATION- 2ND LINE, (Reported) Potassium Chloride 10 Meq Capsule.er, 10 MEQ PO DAILY PRN for WHEN TAKING FUROSEMIDE, (Reported) Trazodone HCl 100 Mg Tablet, 100 MG PO HS, (Reported) Zinc 50 Mg Tablet, 50 MG PO DAILY, (Reported) Past Lsejzwk-Bbyokg-Chllqa Hx Patient Social History Alcohol Use: Denies Use Recreational Drug Use: No Smoking Status: Never a Smoker 2nd Hand Smoke Exposure: No Recent Foreign Travel: No Contact w/Someone Who Travel: No Recent Infectious Disease Expo: No Recent Hopitalizations: Yes (08/14-08/16/19 FOR POSSIBLE TIA) Immunizations Up To Date Date of Pneumonia Vaccine: Sep 06, 2019 Date of Influenza Vaccine: May 06, 2019 Seasonal Allergies Seasonal Allergies: Yes Surgeries History of Surgeries: Yes ("MESH IN RECTAL AREA" PER OLD RECORDS; CARDIAC CATH IN [place]) Surgeries: Adenoidectomy, Appendectomy, Cardiac, Gallbladder, Hysterectomy, Oophorectomy, Pacemaker, Rectal, Tonsillectomy Respiratory History of Respiratory Disorde: Yes Respiratory Disorders: Asthma, COPD Cardiovascular History of Cardiac Disorders: Yes (SSS,PACEMAKER (MEDTR); CHF; NON-ISCHEMIC CARDIOMYOPATHY;CAD-NO INTERVENTION) Cardiac Disorders: Atrial Fibrillation (paroxysmal), Cardiomyopathy, Coronary Artery Disease, Heart Attack, High Cholesterol, Hypertension, Irregular Heartbeat, Syncope Neurological History of Neurological Disord: No Reproductive System : No 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, Menopausal Genitourinary History of Genitourinary Disor: No Gastrointestinal History of Gastrointestinal Di: Yes Gastrointestinal Disorders: Gastroesophageal Reflux Musculoskeletal History of Musculoskeletal Dis: Yes Musculoskeletal Disorders: Arthritis Endocrine History of Endocrine Disorders: Yes Endocrine Disorders: Hypothyroidsim HEENT History of HEENT Disorders: No Cancer History of Cancer: No Psychosocial History of Psychiatric Problem: Yes Behavioral Health Disorders: Anxiety Integumentary History of Skin or Integumenta: No Blood Transfusions History of Blood Disorders: No Family Medical History Significant Family History: Cancer, Diabetes, Lung Disease Review of Systems-General Constitutional: No chills, No fever Cardiovascular: No chest pain, No palpitations Gastrointestinal: abdominal pain (epigastric region ), dysphagia; No nausea, No vomiting Physical Exam-General Problems Physical Exam Vital Signs Vital Signs - First Documented 09/20/19 21:19 Temp 36.2 Pulse 112 Resp 30 B/P (MAP) 170/93 (118) Pulse Ox 99 O2 Delivery Simple Mask O2 Flow Rate 6.00 FiO2 100 Capillary Refill : Less Than 3 Seconds General Appearance: WD/WN, no apparent distress HEENT: PERRL/EOMI Neck: non-tender, supple Respiratory: chest non-tender, no respiratory distress Cardiovascular: normal peripheral pulses Peripheral Pulses: 2+ Dorsalis Pedis (R), 2+ Left Dors-Pedis (L), 2+ Radial Pulses (R), 2+ Radial Pulses (L) Gastrointestinal: No distended, No guarding; tenderness Neurologic/Psychiatric: alert, normal mood/affect, oriented x 3 Skin: normal color, warm/dry Lymphatic: no adenopathy Data Review Labs Laboratory Tests 09/24/19 04:58: White Blood Count 7.9, Red Blood Count 3.86L, Hemoglobin 11.9, Hematocrit 37, Mean Corpuscular Volume 96, Mean Corpuscular Hemoglobin 31, Mean Corpuscular Hemoglobin Concent 32, Red Cell Distribution Width 14.0, Platelet Count 228, Mean Platelet Volume 10.1, Neutrophils (%) (Auto) 61, Lymphocytes (%) (Auto) 28, Monocytes (%) (Auto) 8, Eosinophils (%) (Auto) 3, Basophils (%) (Auto) 0, Neutrophils # (Auto) 4.8, Lymphocytes # (Auto) 2.2, Monocytes # (Auto) 0.6, Eosinophils # (Auto) 0.3, Basophils # (Auto) 0.0, Sodium Level 143, Potassium Level 3.6, Chloride Level 106, Carbon Dioxide Level 25, Anion Gap 12, Blood Urea Nitrogen 11, Creatinine 0.90, Estimat Glomerular Filtration Rate > 60, BUN/Creatinine Ratio 12, Glucose Level 97, Calcium Level 8.7, Magnesium Level 2.0 Microbiology 09/21/19 MRSA Screen - Final, Complete MRSA not isolated 09/20/19 Urine Culture - Final, Complete NO GROWTH Assessment/Plan Assessment/Plan Assessment/Plan COPD Pneumonia dysphagia with globus sensation - plan on EGD coordination with bronchoscopy. - currently on protonix - consider ST for dysphagia evaluation. Clinical Quality Measures DVT/VTE Risk/Contraindication: Risk Factor Score Per Nursin RFS Level Per Nursing on Admit: 4+=Very High BURT PERALTA DO 09/24/19 1062: History of Present Illness History of Present Illness History of Present Illness Consult requested by Dr. Cash for dysphagia Patient has had issues for about a year on and off. Dysphagia with meats and solids foods. Liquids go down okay. Feels gets studck about midway down. Some pain on occasion in epigastric region when occurs 5/10. Food makes worse, not eating makes better. She states she really doesn't have any reflux. Patient was told will need bronchoscopy, if so we could do at same time to arrange with schedule. Pradaxa on hold. Allergies and Home Medications Allergies Coded Allergies: Sulfa (Sulfonamide Antibiotics) (Verified Allergy, Unknown, 04/26/19) morphine (Verified Allergy, Unknown, 04/26/19) Home Medications Alprazolam 0.25 Mg Tablet, 0.25 MG PO BID, (Reported) Calcium Carbonate 600 Mg Tablet, 600 MG PO DAILY, (Reported) Cetirizine HCl 10 Mg Tablet, 10 MG PO DAILY PRN for ALLERGIES, (Reported) Cholecalciferol (Vitamin D3) 125 Mcg Tablet, 125 MCG PO DAILY, (Reported) Dabigatran Etexilate Mesylate 150 Mg Capsule, 150 MG PO BID, (Reported) Digoxin 125 Mcg Tablet, 125 MCG PO DAILY, (Reported) Ferrous Sulfate 325 Mg Tablet, 325 MG PO DAILY, (Reported) Fluticasone Propionate 16 Gm Kindred.susp, 2 SPRAYS NS DAILY PRN for ALLERGIES, (Reported) Folic Acid/Mv,Fe,Other Min 1 Each Tablet, 1 EACH PO DAILY, (Reported) Magnesium Oxide 400 Mg Tablet, 400 MG PO DAILY, (Reported) Melatonin/Pyridoxine HCl (B6) 1 Each Tablet, 1 EACH PO HS, (Reported) Metoprolol Tartrate 25 Mg Tablet, 12.5 MG PO BID, (Reported) TAKES 1/2 (25MG) TABLET Paroxetine HCl 40 Mg Tablet, 40 MG PO DAILY, (Reported) Polyethylene Glycol 3350 17 Gm Powd.pack, 17 GM PO DAILY PRN for CONSTIPATION- 2ND LINE, (Reported) Potassium Chloride 10 Meq Capsule.er, 10 MEQ PO DAILY PRN for WHEN TAKING FUROSEMIDE, (Reported) Trazodone HCl 100 Mg Tablet, 100 MG PO HS, (Reported) Zinc 50 Mg Tablet, 50 MG PO DAILY, (Reported) Patient Home Medication List Home Medication List Reviewed: Yes Past Dvbcdre-Lrgcny-Kmieex Hx Reviewed Nursing Assessment Reviewed/Agree w Nursing PMH: Yes Family Medical History Significant Family History: No Pertinent Family Hx Review of Systems-General EENTM: no symptoms reported Respiratory: no symptoms reported Cardiovascular: No chest pain Gastrointestinal: abdominal pain (epigastric region ), dysphagia; No nausea, No vomiting Genitourinary: no symptoms reported Musculoskeletal: no symptoms reported Skin: no symptoms reported Psychiatric/Neurological: No Symptoms Reported Physical Exam-General Problems Physical Exam General Appearance: WD/WN, no apparent distress HEENT: PERRL/EOMI Neck: non-tender Respiratory: chest non-tender, no respiratory distress, no accessory muscle use Cardiovascular: normal peripheral pulses, regular rate, rhythm Gastrointestinal: soft, no organomegaly; No distended, No guarding; tenderness (epigastric minimal) Rectal: deferred Back: no CVA tenderness Extremities: non-tender, normal inspection Neurologic/Psychiatric: service order clerk II-XII nml as tested, no motor/sensory deficits, alert, normal mood/affect, oriented x 3 Skin: normal color, warm/dry Lymphatic: no adenopathy Assessment/Plan Assessment/Plan Assessment/Plan COPD Pneumonia dysphagia with globus sensation epigastric pain if patient going for bronch can arrange for egd at same time pradaxa on hold if not able to do egd at this time can get barium swallow Supervisory-Addendum Brief Verification & Attestation Participated in pt care: history, MDM, physical Personally performed: exam, history, MDM, supervision of care Care discussed with: Medical Student Procedures: n/a Results interpretation: Verified all documentation Verification and Attestation of Medical Student E/M Service A medical student performed and documented this service in my presence. I reviewed and verified all information documented by the medical student and made modifications to such information, when appropriate. I personally performed the physical exam and medical decision making. Burt Peralta, Sep 24, 2019,17:07 SCOUT GRANADOS Sep 24, 2019 12:02 BURT PERALTA DO Sep 24, 2019 17:02
[2019-09-24 16:00] VITALS: BP 106/54
[2019-09-24] MEDS: traZODone 100 MG (DESYREL) TAB PO SCH (20:06)
[2019-09-24] MEDS: ALPRAZolam 0.25 MG (XANAX) TAB PO PRN (20:13)
[2019-09-25 00:25] VITALS: BP 116/71
[2019-09-25] MEDS: RT-ALBUTEROL/IPRATROPIUM 3 ML (DUONEB) VIAL INH SCH ×4 (02:29→14:50)
[2019-09-25 04:00] VITALS: BP 113/70
[2019-09-25 05:31] LABS: BASOPHILS % (AUTO) 0 % (0-10); EOSINOPHILS # (AUTO) 0.3 10^3/uL (0.0-0.3); EOSINOPHILS % (AUTO) 4 % (0-10); HEMATOCRIT 41 % (35-52); HEMOGLOBIN 13.1 G/DL (11.5-16.0); LYMPHOCYTES # (AUTO) 2.4 X 10^3 (1.0-4.0); LYMPHOCYTES % (AUTO) 33 % (12-44); MEAN CORPUSCULAR HEMOGLOBIN 31 PG (25-34); MEAN CORPUSCULAR HGB CONC 32 G/DL (32-36); MEAN CORPUSCULAR VOLUME 96 FL (80-99); MEAN PLATELET VOLUME 10.4 FL (7.4-10.4); MONOCYTES # (AUTO) 0.6 X 10^3 (0.0-1.0); MONOCYTES % (AUTO) 8 % (0-12); NEUTROPHILS # (AUTO) 3.8 X 10^3 (1.8-7.8); NEUTROPHILS % (AUTO) 54 % (42-75); PLATELET COUNT 229 10^3/uL (130-400); RED CELL DISTRIBUTION WIDTH 13.7 % (10.0-14.5); WHITE BLOOD COUNT 7.1 10^3/uL (4.3-11.0)
[2019-09-25 05:38] LABS: CALCIUM 9.1 MG/DL (8.5-10.1); CREATININE SERUM 0.98 MG/DL (0.60-1.30); POTASSIUM 3.8 MMOL/L (3.6-5.0)
[2019-09-25] MEDS: KCL 20 MEQ TAB (K-DUR) PO SCH (06:15)
[2019-09-25] MEDS: POTASSIUM CL 10MEQ/50ML IVPB 50 ML IV SCH (06:15)
[2019-09-25] MEDS: MAGNESIUM 1 GM/100 ML IVPB 100 ML IV SCH (06:15)
[2019-09-25 08:00] VITALS: BP 117/57
--- NOTE | 2019-09-25 08:21 | Progress Note - Surgery ---
SCOUT GRANADOS [facility] 09/25/19 0821: Subjective Date Seen by a Provider: Sep 25, 2019 Time Seen by a Provider: 07:30 Subjective/Events-last exam Patient is alert and oriented and in no acute distress. No family at bedside. Denies any pain at this time Has not been able to eat because it is hard for her to swallow. Has been drinking fluids, HgB has improved from 11.9 to 13.1 and WBC has decreased from 7.9 to 7.1 Urinating and having BM denies the following: shortness of breath, cough, N/V, feeling fever or chills, denies abdominal pain. Review of Systems HEENT: No Head Aches, No Eye Pain Pulmonary: No Dyspnea, No Cough Gastrointestinal: No: Nausea, Vomiting, Abdominal Pain Focused Exam Time of Focused Exam: 23:50 Objective Exam Vital Signs Date Time Temp Pulse Resp B/P (MAP) Pulse Ox O2 Delivery O2 Flow Rate FiO2 09/25/19 07:07 91 Room Air 09/25/19 04:00 36.6 69 16 113/70 (84) 97 Room Air 09/25/19 02:29 93 Room Air 09/25/19 00:25 36.7 75 18 116/71 (86) 95 Room Air 09/24/19 22:15 95 Room Air 09/24/19 20:05 Room Air 09/24/19 18:56 94 Room Air 09/24/19 16:00 37.1 120 18 106/54 (71) 97 Room Air 09/24/19 14:30 95 Room Air 09/24/19 12:00 37.2 87 18 120/72 (88) 95 Room Air 09/24/19 10:39 94 Room Air I & O 09/25/19 07:00 Intake Total 2150 ml Output Total 3150 ml Balance -1000 ml Capillary Refill : Less Than 3 Seconds General Appearance: No Apparent Distress, Chronically ill HEENT: PERRL/EOMI, Moist Mucous Membranes; No Scleral Icterus (L), No Scleral Icterus (R) Neck: Normal Inspection, Supple Respiratory: Lungs Clear, No Respiratory Distress Cardiovascular: No Edema, Normal Peripheral Pulses Peripheral Pulses: 2+ Dorsalis Pedis (R), 2+ Left Dors-Pedis (L), 2+ Radial Pulses (R), 2+ Radial Pulses (L) Gastrointestinal: soft, no organomegaly; No distended, No guarding, No tenderness (resolved) Extremity: No Calf Tenderness, No Pedal Edema Neurologic/Psychiatric: Alert, Oriented x3 Skin: Normal Color, Warm/Dry Results Lab Laboratory Tests 09/25/19 04:55: White Blood Count 7.1, Red Blood Count 4.28L, Hemoglobin 13.1, Hematocrit 41, Mean Corpuscular Volume 96, Mean Corpuscular Hemoglobin 31, Mean Corpuscular Hemoglobin Concent 32, Red Cell Distribution Width 13.7, Platelet Count 229, Mean Platelet Volume 10.4, Neutrophils (%) (Auto) 54, Lymphocytes (%) (Auto) 33, Monocytes (%) (Auto) 8, Eosinophils (%) (Auto) 4, Basophils (%) (Auto) 0, Neutrophils # (Auto) 3.8, Lymphocytes # (Auto) 2.4, Monocytes # (Auto) 0.6, Eosinophils # (Auto) 0.3, Basophils # (Auto) 0.0, Sodium Level 144, Potassium Level 3.8, Chloride Level 107, Carbon Dioxide Level 25, Anion Gap 12, Blood Urea Nitrogen 10, Creatinine 0.98, Estimat Glomerular Filtration Rate 56, BU N/Creatinine Ratio 10, Glucose Level 105, Calcium Level 9.1, Magnesium Level 2.0 Microbiology 09/21/19 MRSA Screen - Final, Complete MRSA not isolated 09/20/19 Urine Culture - Final, Complete NO GROWTH Assessment/Plan Assessment/Plan Assessment/Plan COPD Pneumonia dysphagia with globus sensation epigastric pain if patient going for bronch can arrange for egd at same time pradaxa on hold if not able to do egd at this time can get barium swallow Clinical Quality Measures DVT/VTE Risk/Contraindication: Risk Factor Score Per Nursin RFS Level Per Nursing on Admit: 4+=Very High OSMAN PERALTA DO 09/26/192133: Subjective Subjective/Events-last exam Patient doing okay today. Patient hgb improved to 13.1 No epigastric pain. Still with some dysphagia from time to time. Not having bronch yet. Wanting to go home. No new complaints. Objective Exam General Appearance: No Apparent Distress, Chronically ill HEENT: PERRL/EOMI, Moist Mucous Membranes Neck: Normal Inspection, Non Tender, Supple Respiratory: Chest Non Tender, No Accessory Muscle Use, No Respiratory Distress Cardiovascular: Regular Rate, Rhythm Gastrointestinal: non tender, soft, no organomegaly Extremity: No Calf Tenderness Neurologic/Psychiatric: Alert, Oriented x3 Skin: Normal Color, Warm/Dry Lymphatic: No Adenopathy Assessment/Plan Assessment/Plan Assessment/Plan COPD Pneumonia dysphagia with globus sensation epigastric pain patient not having bronch at this time. Could do egd or try to arrange both as outpatient if still wanting bronch, if not would still plan egd outpatient for dysphagia patient in agreement with plan. Supervisory-Addendum Brief Verification & Attestation Participated in pt care: history, MDM, physical Personally performed: exam, history, MDM, supervision of care Care discussed with: Medical Student Procedures: n/a Results interpretation: Verified all documentation Verification and Attestation of Medical Student E/M Service A medical student performed and documented this service in my presence. I reviewed and verified all information documented by the medical student and made modifications to such information, when appropriate. I personally performed the physical exam and medical decision making. Osman Peralta, Sep 25, 2019,21:33 SCOUT GRANADOS [facility] Sep 25, 2019 08:21 OSMAN PERALTA DO Sep 26, 2019 21:34
--- NOTE | 2019-09-25 08:32 | Cardiology Progress Note ---
Subjective Date Seen by Provider: Sep 25, 2019 Time Seen by Provider: 08:31 Subjective/Events-last exam Patient is laying down in bed, feeling better. No new complaint Review of Systems General: No Chills, No Night Sweats, No Fatigue, No Malaise, No Appetite, No Other HEENT: No Head Aches, No Visual Changes, No Eye Pain, No Ear Pain, No Dysphasia, No Sinus Congestion, No Post Nasal Drip, No Sore Throat, No Other Pulmonary: No Dyspnea, No Cough, No Pleuritic Chest Pain, No Other Cardiovascular: No: Chest Pain, Palpitations, Orthopnea, Paroxysmal Noc. Dyspnea, Edema, Lt Headedness, Other Focused Exam Time of Focused Exam: 23:50 Objective-Cardiology Exam Last Set of Vital Signs Vital Signs 09/21/19 09/25/19 09/25/19 08:00 04:00 07:07 Temp 36.6 Pulse 69 Resp 16 B/P (MAP) 113/70 (84) Pulse Ox 91 O2 Delivery Room Air FiO2 30 Capillary Refill : Less Than 3 Seconds I&O Intake and Output 09/25/19 00:00 Intake Total 2505 ml Output Total 2950 ml Balance -445 ml Intake Oral 2505 ml Output Urine Total 2950 ml # Bowel Movements 1 General: Alert, Oriented X3, Cooperative HEENT: Atraumatic, PERRLA Neck: Supple, No JVD, No Thyromegaly Lungs: Clear to Auscultation, Normal Air Movement Heart: Normal S1, Normal S2, No Murmurs, Other (Atrial fibrillation) Abdomen: Normal Bowel Sounds, Soft, No Tenderness, No Hepatosplenomegaly, No Masses Extremities: No Clubbing, No Cyanosis, No Edema, Normal Pulses, No Tenderness/Swelling Skin: No Rashes, No Breakdown, No Significant Lesion Neuro: Normal Gait, Normal Speech, Strength at 5/5 X4 Ext, Normal Tone, Sensation Intact Psych/Mental Status: Mental Status NL, Mood NL Results Lab Laboratory Tests 09/25/19 04:55 A/P-Cardiology Admission Diagnosis Chest pain Syncope Coronary artery disease Atrial fibrillation Assessment/Plan Chest pain nonspecific etiology, epigastric pain reproducible, worse with coughing and having discomfort in the upper abdominal area after eating. Reporting improvement. Managed by primary care team Cough and hemoptysis, reporting improvement, possible bronchoscopy, managed by Dr. Starla Syncope, probably orthostatic hypotension, better after stopping Lasix and lisinopril, using WILL hose, continue to monitor Persistent atrial fibrillation, rate is controlled, tolerating low-dose beta blockers Hypertension, we discussed her management plan, I explained to her that I prefer moderately elevated blood pressure over recurrent orthostatic hypotension and syncope. We'll continue on the low-dose beta blockers and monitor closely. Status post transient episode of change in mental status with questionable TIA, no further episodes were reported. Coronary artery disease, multiple interventions in the past, last cardiac catheterization was done in February 2019 in [place] reported as nonobstructive disease with 40-50 percent stenosis in the proximal LAD, with mildly reduced cardiac output but no significant obstructive disease. Continue to monitor Congestive heart failure, last echo was done in April 2019 showing ejection fraction 55-65 percent, moderate mitral regurgitation, moderate aortic regurgitation, moderate to severe tricuspid regurgitation, PA pressure was not measured. 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 Hypertension, blood pressure is better. Continue to monitor Hyperlipidemia, monitor lipids as outpatient. Gastroesophageal reflux disease maintained on PPI and Carafate. Anxiety, depression Clinical Quality Measures DVT/VTE Risk/Contraindication: Risk Factor Score Per Nursin RFS Level Per Nursing on Admit: 4+=Very High ADELAIDA RIGGS MD Sep 25, 2019 08:32
[2019-09-25] MEDS: PARoxetine 20 MG (PAXIL) TAB PO SCH (08:38)
[2019-09-25] MEDS: BENZONATATE 100 MG (TESSALON) CAPSULE PO SCH ×2 (08:38→13:35)
[2019-09-25] MEDS: DIGOXIN 0.125 MG (LANOXIN) TAB PO SCH (08:39)
[2019-09-25] MEDS ORDERED: PANTOPRAZOLE 40 MG (PROTONIX) TAB PO SCH (09:00)
--- NOTE | 2019-09-25 10:01 | Physical Therapy Daily Note ---
PT Daily Note-Current Subjective No pain reported patient has some SOB when completing exercises. Appearance Patient returned to recliner with feet up, alarm set, tray and call light in reach. Mental Status Patient Orientation: Person, Place, Eyes Open Attachments: IV Transfers SCALE: Activities may be completed with or without assistive devices. 0-Gfervrlxww-nhfildq completes the activity by him/herself with no assistance from a helper. 5-Set-up or Clean-up Assistance-helper sets up or cleans up; patient completes activity. [place] assists only prior to or following the activity. 4-Supervision or Touching Assistance-helper provides verbal cues and/or touching/steadying and/or contact guard assistance as patient completes activity. Assistance may be provided throughout the activity or intermittently. 3-Partial/Moderate Assistance-helper does LESS THAN HALF the effort. [place] lifts, holds or supports trunk or limbs, but provides less than half the effort. 2-Substantial/Maximal Assistance-helper does MORE THAN HALF the effort. [place] lifts or holds trunk or limbs and provides more than half the effort. 4-Mliuvdahs-hciscb does ALL the effort. Patient does none of the effort to complete the activity. Or, the assistance of 2 or more helpers is required for the patient to complete the activity. If activity was not attempted, code reason: 7-Patient Refused. 9-Not Applicable-not attempted and the patient did not perform the activity before the current illness, exacerbation or injury. 10-Not Attempted due to Environmental Limitations-(lack of equipment, weather restraints, etc.). 88-Not Attempted due to Medical Conditions or Safety Concerns. Sit to Stand (QC): 4 (PRN CGA 80% of time) Chair/Tbw-un-Hnorf Xfer(QC): 4 (CGA) Weight Bearing Right Lower Extremity: Right Weight Bearing/Tolerated Left Lower Extremity: Left Weight Bearing/Tolerated Gait Training Distance: 15' Walk 10 feet (QC): 4 (CGA) Gait Assistive Device: FWW Patient ambulated with RW to recliner. Needs verbal cues to breath and not hold breath. Patient requires some steadying on turns PRN. Exercises Seated Therapy Exercises: Ankle pumps, Long arc quads Seated Reps: 2 (10) Assessment Current Status: Good Progress Patient is making good progress and can sit to stand without CGA. Patient sometime self limits and had to be motivated to complete activity. PT Retail Office Manager Goals Retail Office Manager Goals PT Skilled Nursing Goals Time Frame: Oct 07, 2019 Roll Left & Right (QC): 5 Sit to Lying (QC): 5 Lying-Sitting on Side/Bed(QC): 5 Sit to Stand (QC): 5 Chair/Brv-or-Jqmfz Xfer(QC): 5 Toilet Transfer (QC): 5 Does the Patient Walk: Yes Walk 10 feet (QC): 5 Walk 50ft with 2 Turns (QC): 5 Walk 150 ft (QC): 5 PT Plan Problem List Problem List: Activity Tolerance, Functional Strength, Safety, Balance, Gait, Transfer Treatment/Plan Treatment Plan: Continue Plan of Care Treatment Plan: Bed Mobility, Education, Functional Activity Luz, Functional Strength, Gait, Safety, Therapeutic Exercise, Transfers Treatment Duration: Oct 07, 2019 Frequency: 6 times per week Estimated Hrs Per Day: .25 hour per day Patient and/or Family Agrees t: Yes Safety Risks/Education Patient Education: Gait Training, Transfer Techniques, Safety Issues Teaching Recipient: Patient Response to Teaching: Verbalize Understanding, Return Demonstration, Reinforcement Needed Time/GCodes Time In: 0850 Time Out: 0905 Total Billed Treatment Time: 15 Total Billed Treatment 1 visit FA 15 BARRY MORAN PT Sep 25, 2019 10:01
[2019-09-25 12:00] VITALS: BP 131/64
--- NOTE | 2019-09-25 12:04 | Occupational Therapy Eval ---
OT Evaluation-General/PLF Medical Diagnosis Admission Date Sep 21, 2019 at 00:10 Medical Diagnosis: pneumonia/sepsis/respiratory failure Onset Date: Sep 21, 2019 Therapy Diagnosis Therapy Diagnosis: Weakness Precautions Precautions/Isolations: Fall Prevention, Standard Precautions Safety Interventions: None Weight Bear Status Weight Bearing Restriction: Weight Bearing/Tolerated Referral Physician: Cash Referral Reason: Activity Tolerance, Self Care, Evaluation/Treatment, Strengthening/ROM Medical History Pertinent Medical History: Atrial Fib, Arthritis, CAD, COPD, GERD, Heart Failure, HTN, Hypothroidism, [place] Reviewed History: Yes Social History Home: Apartment Current Living Status: Alone Entry Into Home: Level Entry ADL-Prior Level of Function SCALE: Activities may be completed with or without assistive devices. 6-[id number]-[id number] completes the activity by him/herself with no assistance from a helper. 5-Set-up or Clean-up Assistance-helper sets up or cleans up; patient completes activity. [place] assists only prior to or following the activity. 4-Supervision or Touching Assistance-helper provides verbal cues and/or touching/steadying and/or contact guard assistance as patient completes activity. Assistance may be provided throughout the activity or intermittently. 3-Partial/Moderate Assistance-helper does LESS THAN HALF the effort. [place] lifts, holds or supports trunk or limbs, but provides less than half the effort. 2-Substantial/Maximal Assistance-helper does MORE THAN HALF the effort. [place] lifts or holds trunk or limbs and provides more than half the effort. 3-Voauflegx-jsfrfu does ALL the effort. Patient does none of the effort to complete the activity. Or, the assistance of 2 or more helpers is required for the patient to complete the activity. If activity was not attempted, code reason: 7-Patient Refused. 9-Not Applicable-not attempted and the patient did not perform the activity before the current illness, exacerbation or injury. 10-Not Attempted due to Environmental Limitations-(lack of equipment, weather restraints, etc.). 88-Not Attempted due to Medical Conditions or Safety Concerns. ADL PLOF Comments Pt. states that she has been independent at home. States that occasionally she gets "light headed." States that her neighbor thinks that she needs help. Self Care: Independent Functional Cognition: Independent DME/Equipment: Tub/Shower DME/Equipment Comments Walker OT Current Status Subjective No pain reported. Appearance Pt. in bathroom when OT entered room. Tech with her. OT took over and pt. getting ready to shower. Mental Status/Objective Patient Orientation: Person, Place, Time, Situation Attachments: IV Current Upper Extremity ROM WFL ADL-Treatment Shower/Bathe Self (QC): 5 (Set up) On/Off Footwear (QC): 5 (Set up) Toileting Hygiene (QC): 6 Toilet transfer (4) SBA Other Treatments Pt. showered after set up. Donned fresh hospital gown and slippers. OT donned WILL hose. Pt. ambulated back to chair with SBA. All needs met. Pt. able to bathe self and ambulate with SBA. Stood at sink to brush hair. No further OT warranted at this time. Education OT Patient Education: Correct positioning, Modified ADL techniques, Progress toward Goal/Update tx plan, Purpose of tx/functional activities, Reviewed precautions, Rehab process, Transfer techniques Teaching Recipient: Patient Teaching Methods: Demonstration, Discussion Response to Teaching: Verbalize Understanding, Return Demonstration OT Chcf Goals Fine Patcher Goals Time Frame: Sep 25, 2019 1=Demonstrate adherence to instructed precautions during ADL tasks. 2=Patient will verbalize/demonstrate understanding of assistive devices/modifications for ADL. 3=Patient will improve strength/tolerance for activity to enable patient to perform ADL's. Pt. met goals of bathing/footwear. SBA with ambulation. No further OT goals at this time. OT Education/Plan Problem List/Assessment Assessment: No Skilled OT Needs ID'd Discharge Recommendations Plan/Recommendations: Discontinue OT Treatment Plan/Plan of Care Treatment,Training & Education: Yes Plan of Care: OTHER Treatment Duration: Sep 25, 2019 Frequency: 1 time per week Estimated Hrs Per Day: .5 hour per day Agreement: Yes Rehab Potential: Good Time/GCodes Start Time: 11:10 Stop Time: 11:33 Total Time Billed (hr/min): 23 Billed Treatment Time 1, EVL x 10minutes, ADL x 13minutes SHAILA ALVARADO OT Sep 25, 2019 12:04
--- NOTE | 2019-09-25 14:10 | NUR ---
RT entered the patients room and she was on RA with O2 sat 97% HR 88; Patient walked for 5 mins and 10 seconds and had to take a break due to SOA and increased WOB; O2 ranged from 89-96% on RA and HR 82-111; Patient walked a total of 276 feet. Patient rested the rest of the 50 mins and then walked back to the room.
--- NOTE | 2019-09-25 14:50 | NUR ---
PT IS WITH PT. NO TREATMENT WAS GIVEN PER PT REQUEST. PT IS IN NO RESPIRATORY DISTRESS. Addendum: 09/25/19 at 1452 by FELA LARSON RT Amended: Links added. Addendum: 09/25/19 at 1455 by FELA LARSON RT WRONG PT.
--- NOTE | 2019-09-25 15:59 | Discharge Summary ---
Discharge Summary Hospital Course Was the Problem List Reviewed?: Yes Problems/Dx: (1) Acute respiratory failure Status: Acute Qualifiers: Qualified Codes: J96.01 - Acute respiratory failure with hypoxia (2) Atrial fibrillation (3) CAD (coronary artery disease) (4) COPD (chronic obstructive pulmonary disease) Qualifiers: Qualified Codes: J44.1 - Chronic obstructive pulmonary disease with (acute) exacerbation (5) Debility (6) Hypertension (7) Anxiety (8) Hemoptysis Status: Resolved Hospital Course Date of Admission: Sep 21, 2019 at 00:10 Admission Diagnosis : Acute respiratory failure with hypoxia Family Physician/Provider: AbrilLocal Physician Date of Discharge: 09/25/19 Discharge Diagnosis: Acute respiratory failure with hypoxia due to COPD exacerbation Hospital Course: Nubia Gore is a 69 year old female who presented with shortness of breath and was admitted with acute respiratory failure with hypoxia due to COPD exacerbation. She was treated with steroids and nebulizers and improved. There was concern for pneumonia, but this was ruled out. She suffered from chest pain which seemed to be musculoskeletal in nature. Cardiology was consulted and assisted with her care. She had an episode of hemoptysis which resolved. She will follow up with pulmonology for her COPD and hemoptysis. She will follow up with general surgery for dysphagia. She was discharged home in stable condition. Labs and Pending Lab Test: Laboratory Tests 09/25/19 04:55: White Blood Count 7.1, Red Blood Count 4.28L, Hemoglobin 13.1, Hematocrit 41, Mean Corpuscular Volume 96, Mean Corpuscular Hemoglobin 31, Mean Corpuscular Hemoglobin Concent 32, Red Cell Distribution Width 13.7, Platelet Count 229, Mean Platelet Volume 10.4, Neutrophils (%) (Auto) 54, Lymphocytes (%) (Auto) 33, Monocytes (%) (Auto) 8, Eosinophils (%) (Auto) 4, Basophils (%) (Auto) 0, Neutrophils # (Auto) 3.8, Lymphocytes # (Auto) 2.4, Monocytes # (Auto) 0.6, Eosinophils # (Auto) 0.3, Basophils # (Auto) 0.0, Sodium Level 144, Potassium Level 3.8, Chloride Level 107, Carbon Dioxide Level 25, Anion Gap 12, Blood Urea Nitrogen 10, Creatinine 0.98, Estimat Glomerular Filtration Rate 56, BUN/Creatinine Ratio 10, Glucose Level 105, Calcium Level 9.1, Magnesium Level 2.0 Microbiology 09/21/19 MRSA Screen - Final, Complete MRSA not isolated 09/20/19 Urine Culture - Final, Complete NO GROWTH Home Meds Active Reported Magnesium (Magnesium Oxide) 400 Mg Tablet 400 Mg PO DAILY Calcium (Calcium Carbonate) 600 Mg Tablet 600 Mg PO DAILY Zinc 50 Mg Tablet 50 Mg PO DAILY Vitamin D3 (Cholecalciferol (Vitamin D3)) 125 Mcg Tablet 125 Mcg PO DAILY Vitamin D3 (Cholecalciferol (Vitamin D3)) 10 Mcg Tablet 10 Mcg PO Lanoxin (Digoxin) 125 Mcg Tablet 125 Mcg PO DAILY Paroxetine HCl 40 Mg Tablet 40 Mg PO DAILY Pradaxa (Dabigatran Etexilate Mesylate) 150 Mg Capsule 150 Mg PO BID Potassium Chloride 10 Meq Capsule.er 10 Meq PO DAILY PRN Iron (Ferrous Sulfate) 325 Mg Tablet 325 Mg PO DAILY One Daily For Women Tablet (Folic Acid/Mv,Fe,Other Min) 1 Each Tablet 1 Each PO DAILY Melatonin-Vit B6 3 mg-1 mg Tab (Melatonin/Pyridoxine HCl (B6)) 1 Each Tablet 1 Each PO HS Fluticasone Propionate 16 Gm [place].susp 2 Sprays NS DAILY PRN Alprazolam 0.25 Mg Tablet 0.25 Mg PO BID Miralax (Polyethylene Glycol 3350) 17 Gm Powd.pack 17 Gm PO DAILY PRN Trazodone HCl 100 Mg Tablet 100 Mg PO HS Wal-Zyr (Cetirizine HCl) 10 Mg Tablet 10 Mg PO DAILY PRN Metoprolol Tartrate 25 Mg Tablet 12.5 Mg PO BID TAKES 1/2 (25MG) TABLET Assessment/Pt Instructions Take medications as prescribed. Follow up with pulmonology for COPD. Follow up with surgery for dysphagia. Discharge Planning: <30 minutes discharge planning Discharge Instructions Discharge Diet: No Restrictions Activity as Tolerated: Yes Consultations Pulmonology, Cardiology, Surgery Discharge Physical Examination Vital Signs Vital Signs Date Time Temp Pulse Resp B/P (MAP) Pulse Ox O2 Delivery O2 Flow Rate FiO2 09/25/19 15:16 09/25/19 12:00 36.8 87 18 95 Room Air 09/25/19 08:00 100 09/25/19 08:00 1.00 General Appearance: No Apparent Distress, Chronically ill Respiratory: Lungs Clear, Normal Breath Sounds, No Respiratory Distress Cardiovascular: Regular Rate, Rhythm, No Edema, No Murmur Gastrointestinal: Normal Bowel Sounds, Non Tender, Soft Extremity: Normal Inspection, Non Tender, No Pedal Edema Skin: Normal Color, Warm/Dry Neurologic/Psychiatric: Alert, Oriented x3, No Motor/Sensory Deficits, Normal Mood/Affect Allergies: Coded Allergies: Sulfa (Sulfonamide Antibiotics) (Verified Allergy, Unknown, 04/26/19) morphine (Verified Allergy, Unknown, 04/26/19) Discharge Summary Date of Admission Sep 21, 2019 at 00:10 Date of Discharge Discharge Date: Sep 25, 2019 Discharge Time: 16:00 Admission Diagnosis Acute Hypoxic Respiratory Failure Consults/Procedures Consulations Cardiology, Pulmonology, Surgery Discharge Diagnosis (1) Hemoptysis Status: Resolved (2) Acute respiratory failure Status: Acute Qualifiers: Qualified Codes: J96.01 - Acute respiratory failure with hypoxia (3) Pneumonia Status: Acute Qualifiers: Qualified Codes: J18.9 - Pneumonia, unspecified organism (4) Atrial fibrillation (5) CAD (coronary artery disease) (6) COPD (chronic obstructive pulmonary disease) Qualifiers: Qualified Codes: J44.1 - Chronic obstructive pulmonary disease with (acute) exacerbation (7) Debility (8) Hypertension (9) Anxiety Clinical Quality Measures DVT/VTE Risk/Contraindication: Risk Factor Score Per Nursin RFS Level Per Nursing on Admit: 4+=Very High ATIF MARTEL MD Sep 25, 2019 15:59
[2019-09-25 16:00] VITALS: BP 133/80
--- NOTE | 2019-09-25 16:25 | Pulmonary Progress Note ---
Subjective Time Seen by a Provider: 16:24 Subjective/Events-last exam Pt is getting better. Sepsis Event Evaluation Height, Weight, BMI Height: '" Weight: lbs. oz. kg; 36.00 BMI Method: Focused Exam Time of Focused Exam: 23:50 Exam Exam Vital Signs Date Time Temp Pulse Resp B/P (MAP) Pulse Ox O2 Delivery O2 Flow Rate FiO2 09/25/19 15:16 09/25/19 12:00 36.8 87 18 131/64 (86) 95 Room Air 09/25/19 10:21 95 Room Air 09/25/19 08:00 96 Room Air 100 09/25/19 08:00 36.5 60 14 117/57 (77) 96 Nasal Cannula 1.00 09/25/19 07:07 91 Room Air 09/25/19 04:00 36.6 69 16 113/70 (84) 97 Room Air 09/25/19 02:29 93 Room Air 09/25/19 00:25 36.7 75 18 116/71 (86) 95 Room Air 09/24/19 22:15 95 Room Air 09/24/19 20:05 Room Air 09/24/19 18:56 94 Room Air I & O 09/25/19 07:00 Intake Total 2150 ml Output Total 3150 ml Balance -1000 ml Height & Weight Height: '" Weight: lbs. oz. kg; 36.00 BMI Method: General Appearance: No Apparent Distress, WD/WN HEENT: PERRL/EOMI, Moist Mucous Membranes; No Scleral Icterus (L), No Scleral Icterus (R) Neck: Normal Inspection, Supple Respiratory: No Accessory Muscle Use, No Respiratory Distress, Wheezing (scant) Cardiovascular: No Gallop, No JVD, Systolic Murmur, Irregularly Irregular Capillary Refill: Less Than 3 Seconds Peripheral Pulses: 2+ Dorsalis Pedis (R), 2+ Left Dors-Pedis (L), 2+ Radial Pulses (R), 2+ Radial Pulses (L) Gastrointestinal: normal bowel sounds, non tender, soft Extremity: No Calf Tenderness, No Pedal Edema Neurologic/Psychiatric: Alert, Oriented x3 Skin: Normal Color, Warm/Dry Results Lab Laboratory Tests 09/24/19 04:58 09/25/19 04:55 Assessment/Plan Assessment/Plan Acute respiratory distress-- resolved -Duonebs Pulmonary edema - improved -MRSA swab pending -Influenza negative Dysphagia with Hemoptysis -Was on Pradaxa - currently on hold -Pt states food gets stuck katy solid food -Dr. Peralta is planning on Endoscopy -CT scan - reviewed. -Consider bronch if hemoptysis does not resolve. Nausea -improved w/ Zofran CP -likely due to anxiety -improved w/ fentanyl Anxiety CAD Afib -continue home meds CORA LEAL DO Sep 25, 2019 16:25
--- NOTE | 2019-09-25 16:56 | NUR ---
CM/SS: Visited with pt as to plan for discharge DME: Front Wheeled walker Plan: Pt will discharge to home, no home care to be set up as pt has no primary physician to follow Summary: Pt is aware she will need a walker. Pt reports having had equipment from [facility] in [place]. Pt given the choice list. Pt wants to use [facility]. Pt reminded to obtain a primary physician and reports she knows who she will get. PT aware of follow up appointments as well. Information faxed to [facility] for walker to be delivered to hospital prior to discharge. Follow up phone call to [facility] to ensure that they can deliver walker to hospital. They plan to do so around 4:30pm.
--- NOTE | 2019-09-25 16:56 | NUR ---
Home medical services here at this time with walker for patient. Patient states "I don't want that walker", this RN asked patient why and patient states "that's not the kind that I wanted". This RN asked patient if she would like to go ahead and take walker provided to her home until she can replace it with one she prefers, patient states "no".Patient discharged home at this time.
--- NOTE | 2019-09-26 05:41 | Physician Query Clarification ---
PQ-Uncertain Diagnosis Admission/Discharge Admission Date: Sep 21, 2019 at 00:10 Discharge Date: Sep 25, 2019 at 17:03 The medical record reflects the following clinical scenario: History/Risk Factors: Respiratory distress, Chest pain Clinical Findings: Acute respiratory failure, COPD Treatment: IV antibiotics Question: Is [Sepsis] a clinically valid diagnosis? [Sepsis] was documented in the [09/19ED physician record of Manjit Moulton] with no further documentation in the medical record. Please document a response in Progress Note or Discharge Summary. 1. Yes, clinically valid, condition resolved. 2. No, condition ruled out. 3. Other, with explanation of clinical findings. 4. Undetermined, no explanation for clinical findings. PHYSICIAN RESPONSE Diagnosis clinically valid: No, conditon ruled out Please remember a lack of response to the above will prompt a phone page by CDI/Coding staff. In responding to this query, please exercise your independent professional judgment. The purpose of this communication is to more accurately reflect the complexity of your patients condition. The fact that a question is asked does not imply that any particular answer is desired or expected. Thank you for your timely response to this clarification. Requestors name: [ ] Phone # [ ] THIS PHYSICIAN QUERY FORM IS A PERMANENT PART OF THE MEDICAL RECORD CADE LANDA Sep 26, 2019 05:41 ATIF MARTEL MD Sep 26, 2019 17:30
[2019-09-27] MEDS ORDERED: PARO40TA3 PO (17:02)
== END 2019-09-25 17:03 | disposition home or self-care (01) | DRG 189 ==
LOC: EDUNIT# 21:14 → ER 21:15 → ICU 09-21 00:10 → CSD 09-21 06:23 → ICU 09-22 19:46 → 4TH 09-23 06:15
PROVIDERS: ADMIT Internal Medicine; ATTEND Internal Medicine
DX: J96.01 Acute respiratory failure with hypoxia (principal); I42.8 Other cardiomyopathies; J44.9 Chronic obstructive pulmonary disease, unspecified; I11.0 Hypertensive heart disease with heart failure; I50.9 Heart failure, unspecified; I25.10 Atherosclerotic heart disease of native coronary artery without angina pectoris; I48.0 Paroxysmal atrial fibrillation; R07.89 Other chest pain; I25.2 Old myocardial infarction; I48.19 Other persistent atrial fibrillation; E78.00 Pure hypercholesterolemia, unspecified; R04.2 Hemoptysis; K21.9 Gastro-esophageal reflux disease without esophagitis; E03.9 Hypothyroidism, unspecified; M19.91 Primary osteoarthritis, unspecified site; F41.9 Anxiety disorder, unspecified; Z95.0 Presence of cardiac pacemaker; Z90.710 Acquired absence of both cervix and uterus; R13.10 Dysphagia, unspecified
CPT/HCPCS: 36415; 36600; 51702; 71045; 71275; 80048; 80053; 80061; 80162; 81000; 82805; 83605; 83735; 83874; 83880; 84100; 84145; 84484; 85007; 85025; 85027; 85610; 85730; 86141; 87081; 87088; 87804; 93005; 93041; 93306; 94640; 94660; 94760; 94761

== ENCOUNTER → 2020-01-08 | Outpatient (CLI) | payer MEDICARE ==
[~2020-01-08] MED LIST changes: +CALC-250 PO; +CALC600T12 PO; +CHOL400T PO; +DIGO-20 PO; +MAGN400T39 PO; +ZINC50TA58 PO
--- NOTE | 2020-01-08 17:45 | Diagnostic Imaging Report ---
INDICATION: Bilateral hand pain EXAM: AP, oblique and lateral views of both hands are obtained. On the left side, there are diffuse degenerative changes throughout the interphalangeal joints as well as degenerative change of the first MCP joint. There is degenerative change at the first carpometacarpal joint and mid carpal joint on the radial side. There is mild degenerative change of the radiocarpal joint. There is no acute bony abnormality. On the right side, there has been prior fusion of the radiocarpal joint and of the carpal bones. There is degenerative change of first carpometacarpal joint and first MCP joint as well as diffuse degenerative change throughout the interphalangeal joints. IMPRESSION: Degenerative changes throughout both hands, as described above, with no acute abnormality. Dictated by: Dictated on workstation # [id number]
== END ==
LOC: RAD 15:10
PROVIDERS: ATTEND Internal Medicine
DX: M19.042 Primary osteoarthritis, left hand (principal); M19.041 Primary osteoarthritis, right hand

== ENCOUNTER 2020-01-15 12:20 | Inpatient (IN) | payer MEDICARE ==
[~2020-01-15] VITALS: Ht 155 cm; Wt 75.1 kg
[2020-01-15 12:48] LABS: ALBUMIN 4.3 GM/DL (3.2-4.5); CHLORIDE 107 MMOL/L (98-107); POTASSIUM 5.6 MMOL/L (3.6-5.0); SODIUM 141 MMOL/L (135-145)
[2020-01-15 12:49] LABS: CALCIUM 9.6 MG/DL (8.5-10.1)
[2020-01-15 12:50] LABS: INR 0.9 (0.8-1.4); PROTHROMBIN TIME PATIENT 12.9 SEC (12.2-14.7)
[2020-01-15 12:51] LABS: GLUCOSE 119 MG/DL (70-105); TOTAL PROTEIN 7.8 GM/DL (6.4-8.2)
--- NOTE | 2020-01-15 12:51 | ED Syncope ---
General Chief Complaint: Dizziness/Syncope Stated Complaint: R SIDE WEAKNESS Source of Information: Patient (PT IS LIMITED HISTORIAN), EMS, Old Records History of Present Illness Date Seen by Provider: Jan 15, 2020 Time Seen by Provider: 12:18 Initial Comments PT ARRIVES VIA EMS FROM [facility] PT WAS SITTING IN THE OFFICE, AND BECAME UNRESPONSIVE--"GOES IN AND OUT" --NO INJURY AND DID NOT FALL OUT OF CHAIR PT HAS CHRONIC ATRIAL FIBRILLATION AND HAS A PACEMAKER STATES RIGHT BEFORE THIS HAPPENED, SHE FELT HER HEART RACING REALLY FAST , AND THEN THEN NEXT THING SHE REMEMBERS IS WAKING UP PT STATES SHE TAKES DIGOXIN AND TOOK HER NORMAL DOSE THIS MORNING PT STATES SHE IS NOT TAKING ANY ASPIRING OR BLOOD THINNERS--STATES "NO ONE EVER TOLD ME I WAS SUPPOSED TO"--PT HAS BEEN ON ELIQUIS IN THE PAST, AND WAS PRESCRIBED XARELTO ON 09/04/19 AND PRADAXA ON 09/08/19--NO ANTICOAGULANT PRESCRIPTIONS FILLED SINCE THEN, ACCORDING TO MED RECONCILIATION PT'S FRIENDS AT THE SCENE REPORTED THAT PT DOES THIS FREQUENTLY WITH "ANXIETY ATTACKS" AND IS NOT ANY DIFFERENT THAN PREVIOUS EPISODES ACCUCHECK 135 FOR EMS PT HAS HAD PRIOR CVA WITH RIGHT SIDE WEAKNESS ADDITIONALLY, PT STATES SHE HAS PROBLEMS WITH RIGHT ROTATOR CUFF AND CANNOT LIFT HER RIGHT ARM DUE TO CHRONIC SHOULDER PAIN--STATES SHE WAS SUPPOSED TO HAVE SURGERY ON IT 3 YEARS AGO, BUT NEVER HAD IT DONE. NO PARESTHESIAS OR NEW MOTOR DEFICITS INITIALLY, SHE HAD NO COMPLAINTS HOWEVER, ON DIRECT QUESTIONING ON REVIEW OF SYSTEMS, SHE HAS POSITIVE REVIEW OF SYSTEMS-C/O HEADACHE, LEFT CHEST PAIN, SHORTNESS OF BREATH, NAUSEA, DIZZINESS. STATES SHE HAS BEEN REAL TIRED FOR THE LAST 2 WEEKS DENIES FEVER OR RECENT ILLNESS PT MOVED HERE FROM [place] IN APRIL 2019 PT HAS HAD MULTIPLE VISITS HERE FOR SAME, AND HAS REPORTED MULTIPLE SYNCOPAL EPISODES ON PREVIOUS ADMITS SEE OLD CHARTS FOR DETAILS. PCP: DR. GUTIÉRREZ--STATES SHE HAD AN ONLINE VISIT WITH HIM LAST WEDNESDAY FOR MEDICATION REFILLS AND STATES SHE WAS REFERRED TO DR. LEAL FOR "COUGHING UP BLOOD". PEBBLE MILL OPERATOR: DR. RIGGS Allergies and Home Medications Allergies Coded Allergies: Sulfa (Sulfonamide Antibiotics) (Verified Allergy, Unknown, 04/26/19) morphine (Verified Allergy, Unknown, 04/26/19) Home Medications Alprazolam 0.25 Mg Tablet, 0.25 MG PO BID, (Reported) Calcium Carbonate 600 Mg Tablet, 600 MG PO DAILY, (Reported) Cetirizine HCl 10 Mg Tablet, 10 MG PO DAILY PRN for ALLERGIES, (Reported) Cholecalciferol (Vitamin D3) 125 Mcg Tablet, 125 MCG PO DAILY, (Reported) Dabigatran Etexilate Mesylate 150 Mg Capsule, 150 MG PO BID, (Reported) Digoxin 125 Mcg Tablet, 125 MCG PO DAILY, (Reported) Ferrous Sulfate 325 Mg Tablet, 325 MG PO DAILY, (Reported) Fluticasone Propionate 16 Gm [place].susp, 2 SPRAYS NS DAILY PRN for ALLERGIES, (Reported) Folic Acid/Mv,Fe,Other Min 1 Each Tablet, 1 EACH PO DAILY, (Reported) Magnesium Oxide 400 Mg Tablet, 400 MG PO DAILY, (Reported) Melatonin/Pyridoxine HCl (B6) 1 Each Tablet, 1 EACH PO HS, (Reported) Metoprolol Tartrate 25 Mg Tablet, 12.5 MG PO BID, (Reported) TAKES 1/2 (25MG) TABLET Paroxetine HCl 40 Mg Tablet, 40 MG PO DAILY Prescribed by: ATIF MARTEL on 09/27/19 1702 Polyethylene Glycol 3350 17 Gm Powd.pack, 17 GM PO DAILY PRN for CONSTIPATION- 2ND LINE, (Reported) Potassium Chloride 10 Meq Capsule.er, 10 MEQ PO DAILY PRN for WHEN TAKING FUROSEMIDE, (Reported) Trazodone HCl 100 Mg Tablet, 100 MG PO HS, (Reported) Zinc 50 Mg Tablet, 50 MG PO DAILY, (Reported) Patient Home Medication List Home Medication List Reviewed: Yes Review of Systems Constitutional: see HPI; No chills, No diaphoresis, No fever; malaise, weakness EENTM: no symptoms reported Respiratory: no symptoms reported; No short of breath Cardiovascular: see HPI, chest pain, Hx of Intervention, palpitations, syncope Gastrointestinal: No abdominal pain; nausea; No vomiting Genitourinary: no symptoms reported Musculoskeletal: other (CHRONIC RIGHT SHOULDER PAIN ) Skin: no symptoms reported Psychiatric/Neurological: See HPI, Headache, Pre-Existing Deficit (RIGHT SIDE WEAKNESS) Past Uoyggao-Yqhwfy-Ndheab Hx Past Med/Social Hx: Reviewed and Corrections made Patient Social History Alcohol Use: Denies Use Recreational Drug Use: No Smoking Status: Never a Smoker 2nd Hand Smoke Exposure: No Recent Hopitalizations: No Immunizations Up To Date Date of Pneumonia Vaccine: Sep 06, 2019 Date of Influenza Vaccine: May 06, 2019 Seasonal Allergies Seasonal Allergies: Yes Past Medical History Surgeries: Yes ("MESH IN RECTAL AREA" PER OLD RECORDS; CARDIAC CATH IN [place]) Adenoidectomy, Appendectomy, Cardiac, Gallbladder, Hysterectomy, Oophorectomy, Pacemaker, Rectal, Tonsillectomy Respiratory: Yes Asthma, COPD Cardiac: Yes (SSS,PACEMAKER (MEDTR); CHF; NON-ISCHEMIC CARDIOMYOPATHY;CAD-NO INTERVENTION) Atrial Fibrillation, Cardiomyopathy, Coronary Artery Disease, Heart Attack, High Cholesterol, Hypertension, Irregular Heartbeat, Syncope Neurological: Yes (STROKE WITH RIGHT SIDE WEAKNESS, PER PT) Stroke 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 oz. kg; 36.00 BMI Method: General Appearance: No Apparent Distress, WD/WN, Other (DROWSY/LETHARGIC, KEEPS EYES CLOSED--OPENS TO VERBAL AND TACTILE STIMULATION) HEENT: PERRL/EOMI Neck: Normal Inspection Cardiovascular: No JVD, No Murmur, Normal Peripheral Pulses, Irregularly Irregular Respiratory: Normal Breath Sounds, No Accessory Muscle Use, No Respiratory Distress Gastrointestinal: Non Tender, Soft Extremities: No Pedal Edema, Other (LIMITED ROM OF RIGHT ARM AT SHOULDER AND TENDERNESS TO RIGHT SHOULDER. ) Neurologic/Psychiatric: Alert, Other (MILD RIGHT LEG WEAKNESS, AND RIGHT CLIENT DEVELOPMENT MANAGER SLIGHTLY WEAKER THAN LEFT. UNABLE TO RAISE RIGHT ARM--PT STATES IS BECAUSE HER SHOULDER HURTS AND CAN'T MOVE IT BECAUSE OF ROTATOR CUFF PROBLEM. PT IS DROWSY. PT INITIALLY HAD SOME "STAMMERING" SPEECH--APPEARS TO BE AT WILL, PT TALKS COMPLETELY NORMAL WHEN DISTRACTED. PT DOES APPEAR TO HAVE SOME LIMITED MEMORY. ) Motor/Sensory: No Sensory Deficit, Weak Motor Strength RLE, Weak Motor Strength RUE Skin: Normal Color, Warm/Dry; No Ecchymosis; Other (NO EXTERNAL EVIDENCE OF TRAUMA ANYWHERE) Progress/Results/Core Measures Results/Orders Lab Results Laboratory Tests Test 01/15/20 12:28 01/15/20 12:46 01/15/20 13:02 01/15/20 13:20 Range/Units Prothrombin Time 12.9 12.2-14.7 SEC INR Comment 0.9 0.8-1.4 Activated Partial Thromboplast Time 24 24-35 SEC White Blood Count 7.8 4.3-11.0 10^3/uL Red Blood Count 4.80 4.35-5.85 10^6/uL Hemoglobin 14.8 11.5-16.0 G/DL Hematocrit 44 35-52 % Mean Corpuscular Volume 91 80-99 FL Mean Corpuscular Hemoglobin 31 25-34 PG Mean Corpuscular Hemoglobin Concent 34 32-36 G/DL Red Cell Distribution Width 12.8 10.0-14.5 % Platelet Count 159 130-400 10^3/uL Mean Platelet Volume 10.7 H 7.4-10.4 FL Neutrophils (%) (Auto) 64 42-75 % Lymphocytes (%) (Auto) 23 12-44 % Monocytes (%) (Auto) 8 0-12 % Eosinophils (%) (Auto) 4 0-10 % Basophils (%) (Auto) 0 0-10 % Neutrophils # (Auto) 5.0 1.8-7.8 X 10^3 Lymphocytes # (Auto) 1.8 1.0-4.0 X 10^3 Monocytes # (Auto) 0.6 0.0-1.0 X 10^3 Eosinophils # (Auto) 0.3 0.0-0.3 10^3/uL Basophils # (Auto) 0.0 0.0-0.1 10^3/uL Sodium Level 141 135-145 MMOL/L Potassium Level 5.6 H 3.6-5.0 MMOL/L Chloride Level 107 98-107 MMOL/L Carbon Dioxide Level 24 21-32 MMOL/L Anion Gap 10 5-14 MMOL/L Blood Urea Nitrogen 17 7-18 MG/DL Creatinine 1.18 0.60-1.30 MG/DL Estimat Glomerular Filtration Rate 45 BUN/Creatinine Ratio 14 Glucose Level 119 H 70-105 MG/DL Calcium Level 9.6 8.5-10.1 MG/DL Corrected Calcium 9.4 8.5-10.1 MG/DL Magnesium Level 2.1 1.6-2.4 MG/DL Total Bilirubin 0.9 0.1-1.0 MG/DL Aspartate Amino Transf (AST/SGOT) 48 H 5-34 U/L Alanine Aminotransferase (ALT/SGPT) 18 0-55 U/L Alkaline Phosphatase 94 40-136 U/L Total Creatine Kinase 45 29-168 U/L Creatine Kinase MB 0.8 <6.6 NG/ML Myoglobin 41.0 10.0-92.0 NG/ML Troponin I < 0.028 <0.028 NG/ML B-Type Natriuretic Peptide 171.9 H <100.0 PG/ML Total Protein 7.8 6.4-8.2 GM/DL Albumin 4.3 3.2-4.5 GM/DL TSH [facility] Testing 2.32 0.35-4.94 UIU/ML Digoxin Level < 0.30 L 0.80-2.00 NG/ML Serum Alcohol < 10 <10 MG/DL Urine Opiates Screen NEGATIVE NEGATIVE Urine Oxycodone Screen NEGATIVE NEGATIVE Urine Methadone Screen NEGATIVE NEGATIVE Urine Propoxyphene Screen NEGATIVE NEGATIVE Urine Barbiturates Screen NEGATIVE NEGATIVE Ur Tricyclic Antidepressants Screen NEGATIVE NEGATIVE Urine Phencyclidine Screen NEGATIVE NEGATIVE Urine Amphetamines Screen NEGATIVE NEGATIVE Urine Methamphetamines Screen NEGATIVE NEGATIVE Urine Benzodiazepines Screen NEGATIVE NEGATIVE Urine Cocaine Screen NEGATIVE NEGATIVE Urine Cannabinoids Screen NEGATIVE NEGATIVE Urine Color YELLOW Urine Clarity CLEAR Urine pH 6.5 5-9 Urine Specific [place] 1.010 L 1.016-1.022 Urine Protein NEGATIVE NEGATIVE Urine Glucose (UA) NEGATIVE NEGATIVE Urine Ketones NEGATIVE NEGATIVE Urine Nitrite NEGATIVE NEGATIVE Urine Bilirubin NEGATIVE NEGATIVE Urine Urobilinogen 0.2 < = 1.0 MG/DL Urine Leukocyte Esterase TRACE H NEGATIVE Urine RBC (Auto) NEGATIVE NEGATIVE Urine RBC NONE /HPF Urine WBC 2-5 /HPF Urine Squamous Epithelial Cells 0-2 /HPF Urine Crystals NONE /LPF Urine Bacteria TRACE /HPF Urine Casts NONE /LPF Urine Mucus NEGATIVE /LPF Urine Culture Indicated YES My Orders Orders - KRYSTAL ROBLES DO Ekg Tracing (01/15/20 12:28) Ct Head Wo-R/O Stroke (01/15/20 12:28) Chest 1 View, Ap/Pa Only (01/15/20 12:28) Ed Iv/Invasive Line Start (01/15/20 12:28) Monitor-Rhythm Ecg Trace Only (01/15/20 12:28) Alcohol (01/15/20 12:28) BNP (01/15/20 12:28) Cbc With Automated Diff (01/15/20 12:28) Comprehensive Metabolic Panel (01/15/20 12:28) Creatine Kinase (01/15/20 12:28) Creatine Kinase Mb (01/15/20 12:28) Digoxin (01/15/20 12:28) Drug Screen Stat (Urine) (01/15/20 12:28) Magnesium (01/15/20 12:) Protime With Inr (01/15/20 12:) Partial Thromboplastin Time (01/15/20 12:) Thyroid Analyzer (01/15/20 12:) Ua Culture If Indicated (01/15/20 12:28) Myoglobin Serum (01/15/20 12:28) Troponin I (01/15/20 12:) Urine Culture (01/15/20 13:20) Ct Angio Head/Neck (01/15/20 13:38) Iohexol Injection (Omnipaque 350 Mg/Ml 1 (01/15/20 14:00) Contrast Received (Contrast Received) (01/15/20 14:00) Sodium Chloride Flush (Catheter Flush Sy (01/15/20 14:00) Ns (Ivpb) (Sodium Chloride 0.9% Ivpb Bag (01/15/20 14:00) Apixaban Tablet (Eliquis Tablet) (01/15/20 15:00) Digoxin Injection (Lanoxin Injection) (01/15/20 15:00) Medications Given in ED Current Medications Medications Dose Ordered Sig/Nicole Route Start Time Stop Time Status Last Admin Dose Admin Iohexol 75 ml ONCE ONCE IV 01/15/20 14:00 01/15/20 14:01 DC 01/15/20 14:12 75 ML Sodium Chloride 100 ml ONCE ONCE IV 01/15/20 14:00 01/15/20 14:01 DC 01/15/20 14:12 100 ML Vital Signs/I&O 01/15/20 12:20 Temp 36.6 Pulse 66 Resp 18 B/P (MAP) 123/101 (108) Pulse Ox 96 O2 Delivery Room Air Progress Progress Note : Progress Note NO DETERIORATION IN PT'S CONDITION DURING ER STAY INITIAL EKG SHOWED NSR WITH MULTIPLE PVC'S, BUT FOR REMAINDER OF ER STAY, PT REMAINED IN ATRIAL FIBRILLATION WITH MULTIPLE PVC'S Initial ECG Impression Date: Jan 15, 2020 Initial ECG Impression Time: 12:08 Initial ECG Rate: 87 Initial ECG Rhythm: Normal Sinus (WITH MULTIPLE PVC'S) Diagnostic Imaging Comments CT HEAD--NO ACUTE PROCESS CXR--NO ACUTE PROCESS PER RADIOLOGIST REPORTS AT 1306 CT ANGIOGRAM HEAD/NECK--PER RADIOLOGIST REPORT AT 1443 IMPRESSION: 1. No stenosis or aneurysm in the [place]. 2. No stenosis or dissection the bilateral carotid and vertebral arteries. 3. Patchy hazy opacities in the lung apices, which may indicate air trapping. No focal consolidations. Reviewed: Reviewed by Me Departure Communication (Admissions) 1444--SPOKE WITH DR. RIGGS, PEBBLE MILL OPERATOR, ADVISES TO START ELIQUIS AND GIVE DOSE OF IV DIGOXIN. HE WILL SEE PT IN CONSULT. 1449--SPOKE WITH DR. MARTEL, HOSPITALIST, ACCEPTS PT FOR ADMIT Impression Primary Impression: Syncope Additional Impressions: Atrial fibrillation Non-compliance Malaise and fatigue Disposition: ADMITTED INPATIENT Condition: Stable Admissions Decision to Admit Reason: Admit from ER (General) Decision to Admit/Date: Jan 15, 2020 Time/Decision to Admit Time: 14:45 Departure-Patient Inst. Referrals: EDY GUTIÉRREZ MD (PCP/Family) Primary Care Physician KRYSTAL ROBLES DO Jan 15, 2020 12:51
[2020-01-15 12:52] LABS: BILIRUBIN,TOTAL 0.9 MG/DL (0.1-1.0); CARBON DIOXIDE 24 MMOL/L (21-32)
[2020-01-15 12:54] LABS: ALKALINE PHOSPHATASE 94 U/L (40-136); CREATININE SERUM 1.18 MG/DL (0.60-1.30); GFR ESTIMATED 45
[2020-01-15 12:55] LABS: BUN/CREATININE RATIO 14
[2020-01-15 12:57] LABS: ALANINE AMINOTRANSFERASE 18 U/L (0-55); BASOPHILS % (AUTO) 0 % (0-10); EOSINOPHILS # (AUTO) 0.3 10^3/uL (0.0-0.3); EOSINOPHILS % (AUTO) 4 % (0-10); HEMATOCRIT 44 % (35-52); HEMOGLOBIN 14.8 G/DL (11.5-16.0); LYMPHOCYTES # (AUTO) 1.8 X 10^3 (1.0-4.0); LYMPHOCYTES % (AUTO) 23 % (12-44); MEAN CORPUSCULAR HEMOGLOBIN 31 PG (25-34); MEAN CORPUSCULAR HGB CONC 34 G/DL (32-36); MEAN CORPUSCULAR VOLUME 91 FL (80-99); MEAN PLATELET VOLUME 10.7 FL (7.4-10.4); MONOCYTES # (AUTO) 0.6 X 10^3 (0.0-1.0); MONOCYTES % (AUTO) 8 % (0-12); NEUTROPHILS % (AUTO) 64 % (42-75); PLATELET COUNT 159 10^3/uL (130-400); RED CELL DISTRIBUTION WIDTH 12.8 % (10.0-14.5); WHITE BLOOD COUNT 7.8 10^3/uL (4.3-11.0)
[2020-01-15 12:58] LABS: MAGNESIUM 2.1 MG/DL (1.6-2.4)
[2020-01-15 12:59] LABS: CREATINE KINASE 45 U/L (29-168)
--- NOTE | 2020-01-15 13:01 | Diagnostic Imaging Report ---
PROCEDURE: CT head wo r/o stroke. TECHNIQUE: Multiple contiguous axial images were obtained through the brain without the use of intravenous contrast. Auto Exposure Controls were utilized during the CT exam to meet ALARA standards for radiation dose reduction. INDICATION: Right-sided weakness. Correlation is made with prior head CT from 09/06/2019. FINDINGS: The ventricles and sulci are stable in appearance. No sulcal effacement or midline shift is identified. No acute intra-axial or extra-axial hemorrhage is detected. Cisterns are patent. The visualized paranasal sinuses are clear. IMPRESSION: No acute intracranial process is detected. Dictated by: Dictated on workstation # [id number]
--- NOTE | 2020-01-15 13:03 | Diagnostic Imaging Report ---
HISTORY: Stroke, right-sided weakness, diaphoresis. COMPARISON: 09/23/2019 TECHNIQUE: Frontal view of the chest. FINDINGS: Lung volumes are normal. No focal consolidation is seen. There is no pleural effusion or pneumothorax. The cardiac silhouette is normal in size. The right-sided pacemaker lead appears stable. IMPRESSION: 1. No acute pulmonary abnormality is seen. Dictated by: Dictated on workstation # [id number]
[2020-01-15 13:06] LABS: CREATINE KINASE MB 0.8 NG/ML (<6.6)
[2020-01-15 13:19] LABS: TSH (THYROID ANALYZER) 2.32 UIU/ML (0.35-4.94)
[2020-01-15 13:28] LABS: BILIRUBIN,URINE NEGATIVE (NEGATIVE); CLARITY,URINE CLEAR; COLOR,URINE YELLOW; GLUCOSE, URINE (UA) NEGATIVE (NEGATIVE); KETONES,URINE NEGATIVE (NEGATIVE); LEUKOCYTE ESTERASE ,URINE TRACE (NEGATIVE); NITRITE,URINE NEGATIVE (NEGATIVE); PH,URINE 6.5 (5-9); PROTEIN,URINE NEGATIVE (NEGATIVE)
[2020-01-15 13:37] LABS: BACTERIA,URINE TRACE /HPF; SQUAMOUS EPITHELIAL CELL,UR 0-2 /HPF
[2020-01-15 13:44] LABS: AMPHETAMINE SCREEN, URINE NEGATIVE (NEGATIVE); BARBITURATE SCREEN URINE NEGATIVE (NEGATIVE); BENZODIAZEPINES SCREEN URINE NEGATIVE (NEGATIVE); CANNABINOID SCREEN, URINE NEGATIVE (NEGATIVE); COCAINE SCREEN URINE NEGATIVE (NEGATIVE); METHADONE STAT NEGATIVE (NEGATIVE); METHAMPHETAMINE SCREEN URINE S NEGATIVE (NEGATIVE); OPIATE SCREEN URINE NEGATIVE (NEGATIVE); OXYCODONE STAT NEGATIVE (NEGATIVE); PROPOXYPHENE STAT NEGATIVE (NEGATIVE); TRICYCLIC ANTIDEPRESSANTS SCRE NEGATIVE (NEGATIVE)
[2020-01-15] MEDS ORDERED: HOLD METFORMIN - RECEIVED CONTRAST 20 ML VIAL IV SCH (14:00)
[2020-01-15] MEDS ORDERED: CATHETER FLUSH 10 ML SYR IV PRN ×2 (14:00→16:00)
[2020-01-15] MEDS ORDERED: NS 100 ML (IVPB) BAG IV ONE (14:00)
[2020-01-15] MEDS ORDERED: IOHEXOL 350 MG/ML 100 ML (OMNIPAQUE 350) VIAL IV ONE (14:00)
--- NOTE | 2020-01-15 14:37 | Diagnostic Imaging Report ---
PROCEDURE: CT angiography of the head and CT angiography of the neck with and without contrast. TECHNIQUE: After intravenous contrast administration, helical CT angiography of the neck was performed. Source data was reformatted into 3D MIP projections. Delayed post contrast acquisition was also obtained. Auto Exposure Controls were utilized during the CT exam to meet ALARA standards for radiation dose reduction. INDICATION: Right-sided weakness. COMPARISON: CT head performed earlier the same date. FINDINGS: CTA Neck: The visualized portions of the aortic arch demonstrate no evidence of aneurysm or dissection. There is conventional common origin of the carotid arteries, consistent with bovine arch. The brachiocephalic artery is normal in course and caliber. The right and left common carotid origins are unremarkable. The origin of the left subclavian artery is patent. The common carotid arteries and internal carotid arteries demonstrate a tortuous course. There is calcified atherosclerotic plaque in the bilateral carotid bulbs and proximal internal carotid arteries without flow-limiting stenosis. No evidence of dissection in the carotid systems. The external carotid arteries are patent and unremarkable. The vertebral arteries are codominant. The origin of the right vertebral artery is seen and is unremarkable. The origin of the left vertebral artery is seen and is unremarkable. There is no focal stenosis seen within the neck. There is no dissection. The vertebral arteries are well visualized to up to the level of the basilar artery. The osseous structures of the cervical spine are unremarkable. Included views through the lung apices demonstrate patchy hazy opacities. CTA brain: Atherosclerotic plaque is seen in the bianchi of the bilateral terminal internal carotid arteries without significant stenosis. No stenosis is seen in the bilateral anterior, middle, and posterior cerebral arteries. There is origin of the left SALES CORRESPONDENT. No evidence of aneurysm the [place]. In the posterior circulation, both of the vertebral arteries demonstrate normal opacification. The vertebral arteries are codominant. Both the right and left PICA arteries are identified. The basilar artery is normal in course and caliber. The terminal branch vessels including the superior cerebellar arteries unremarkable. IMPRESSION: 1. No stenosis or aneurysm in the [place]. 2. No stenosis or dissection the bilateral carotid and vertebral arteries. 3. Patchy hazy opacities in the lung apices, which may indicate air trapping. No focal consolidations. Dictated by: Dictated on workstation # [id number]
[2020-01-15] MEDS ORDERED: APIXABAN 5 MG (ELIQUIS) TABLET PO ONE (15:00)
[2020-01-15] MEDS ORDERED: DIGOXIN 0.25 MG/ML (LANOXIN) 2 ML AMP IV ONE (15:00)
--- NOTE | 2020-01-15 15:23 | NUR ---
Per pt request, Roseline, contacted et updated on pt findings et admission to #[phone]. ([phone])
[2020-01-15 16:00] VITALS: BP 149/63
[2020-01-15] MEDS ORDERED: ONDANSETRON 4 MG (ZOFRAN) ORAL DISSOLVE TAB PO PRN (18:15)
[2020-01-15] MEDS ORDERED: BISACODYL 10 MG SUPP (DULCOLAX) PR PRN (18:15)
[2020-01-15] MEDS ORDERED: ANTACID SUSP 30 ML UDC (MYLANTA) PO PRN (18:15)
[2020-01-15] MEDS ORDERED: polyethylene glycoL POWDER 17 GM (MIRALAX) PACK PO PRN (18:15)
[2020-01-15] MEDS ORDERED: MELATONIN 3 MG TABLET PO PRN (18:15)
[2020-01-15] MEDS ORDERED: ONDANSETRON 4 MG/2 ML (SDV) Z0FRAN IV PRN (18:15)
[2020-01-15] MEDS: ACETAMINOPHEN 325 MG TABLET PO PRN (19:59)
[2020-01-15 20:00] VITALS: BP 135/56
[2020-01-15] MEDS: traZODone 100 MG (DESYREL) TAB PO SCH (20:00)
[2020-01-15] MEDS: SENNOSIDES 8.6 MG (SENOKOT) TAB PO SCH (20:00)
[2020-01-15] MEDS: meTOprolol TARTRATE 25 MG (LOPRESSOR) TABLET PO SCH (20:00)
[2020-01-15] MEDS ORDERED: PARoxetine 20 MG (PAXIL) TAB ONE (20:00)
[2020-01-15] MEDS: ALPRAZolam 0.5 MG (XANAX) TAB PO SCH (20:00)
[2020-01-15] MEDS: DOCUSATE SODIUM 100 MG (COLACE) CAP PO SCH (20:00)
[2020-01-15] MEDS: APIXABAN 5 MG (ELIQUIS) TABLET PO SCH (20:00)
[2020-01-15] MEDS ORDERED: PARoxetine 20 MG (PAXIL) TAB PO SCH (20:30)
[2020-01-15] MEDS: inSUlin ASPART (NovoLOG) 1 UNIT/0.01 ML (CHARGE PER UNIT) SC SCH (21:00)
[2020-01-15] MEDS: CATHETER FLUSH 10 ML SYR IV SCH (22:54)
[2020-01-16] VITALS (20 sets, daily range): BP systolic 96–138; BP diastolic 55–85
[2020-01-16 03:32] LABS: BASOPHILS % (AUTO) 0 % (0-10); EOSINOPHILS # (AUTO) 0.2 10^3/uL (0.0-0.3); EOSINOPHILS % (AUTO) 2 % (0-10); HEMATOCRIT 45 % (35-52); HEMOGLOBIN 15.3 G/DL (11.5-16.0); LYMPHOCYTES % (AUTO) 38 % (12-44); MEAN CORPUSCULAR HEMOGLOBIN 31 PG (25-34); MEAN CORPUSCULAR HGB CONC 34 G/DL (32-36); MEAN CORPUSCULAR VOLUME 91 FL (80-99); MEAN PLATELET VOLUME 10.3 FL (7.4-10.4); MONOCYTES # (AUTO) 0.6 X 10^3 (0.0-1.0); MONOCYTES % (AUTO) 7 % (0-12); NEUTROPHILS # (AUTO) 4.3 X 10^3 (1.8-7.8); NEUTROPHILS % (AUTO) 53 % (42-75); PLATELET COUNT 235 10^3/uL (130-400); WHITE BLOOD COUNT 8.1 10^3/uL (4.3-11.0)
[2020-01-16 03:50] LABS: ALBUMIN 3.9 GM/DL (3.2-4.5); POTASSIUM 4.2 MMOL/L (3.6-5.0)
[2020-01-16 03:52] LABS: CALCIUM 9.7 MG/DL (8.5-10.1)
[2020-01-16 03:54] LABS: BILIRUBIN,TOTAL 1.1 MG/DL (0.1-1.0)
[2020-01-16 03:56] LABS: CREATININE SERUM 1.11 MG/DL (0.60-1.30)
[2020-01-16] MEDS: inSUlin ASPART (NovoLOG) 1 UNIT/0.01 ML (CHARGE PER UNIT) SC SCH ×4 (04:57→21:33)
[2020-01-16] MEDS: ACETAMINOPHEN 325 MG TABLET PO PRN (08:45)
--- NOTE | 2020-01-16 08:56 | Consultation-Cardiology ---
HPI-Cardiology Cardiology Consultation Date of Consultation 01/16/20 Date of Admission Time Seen by Provider: 08:50 Indication: syncope HPI 69-year-old lady with history of coronary artery disease, paroxysmal atrial fibrillation, history of syncope in the past, has been having increasing episodes of syncope and feeling rapid heart rate and irregular heart rate. Had a syncopal episode yesterday after having a palpitation, has been having chest pain with a palpitation. No shortness of breath. No diaphoresis. Still taking diuretics due to recurrent pedal edema Home Medications & Allergies Allergies: Coded Allergies: Sulfa (Sulfonamide Antibiotics) (Verified Allergy, Unknown, 04/26/19) morphine (Verified Allergy, Unknown, 04/26/19) Home Medication List Reviewed: Yes [id number]-[id number] Hx Patient Social History Marital Status: Employed/Student: retired Alcohol Use: Denies Use Recreational Drug Use: No Smoking Status: Never a Smoker 2nd Hand Smoke Exposure: No Recent Foreign Travel: No Recent Infectious Disease Expo: No Recent Hopitalizations: No Immunizations Up To Date Date of Pneumonia Vaccine: Sep 06, 2019 Date of Influenza Vaccine: May 06, 2019 Past Medical History Discussed below Family Medical History Significant Family History: No Pertinent Family Hx Family Medical Hx Noncontributory Review of Systems-General Review of Systems Constitutional: see HPI; No chills, No diaphoresis, No fever; malaise, weakness EENTM: no symptoms reported Respiratory: no symptoms reported; No short of breath Cardiovascular: see HPI, chest pain, Hx of Intervention, palpitations, syncope Gastrointestinal: No abdominal pain; nausea; No vomiting Genitourinary: no symptoms reported Musculoskeletal: other (CHRONIC RIGHT SHOULDER PAIN ) Skin: no symptoms reported Psychiatric/Neurological: See HPI, Headache, Pre-Existing Deficit (RIGHT SIDE WEAKNESS) Reviewed Test Results Reviewed Test Results Lab Laboratory Tests Test 01/15/20 12:28 01/15/20 12:46 01/15/20 13:02 01/15/20 13:20 Range/Units Prothrombin Time 12.9 12.2-14.7 SEC INR Comment 0.9 0.8-1.4 Activated Partial Thromboplast Time 24 24-35 SEC White Blood Count 7.8 4.3-11.0 10^3/uL Red Blood Count 4.80 4.35-5.85 10^6/uL Hemoglobin 14.8 11.5-16.0 G/DL Hematocrit 44 35-52 % Mean Corpuscular Volume 91 80-99 FL Mean Corpuscular Hemoglobin 31 25-34 PG Mean Corpuscular Hemoglobin Concent 34 32-36 G/DL Red Cell Distribution Width 12.8 10.0-14.5 % Platelet Count 159 130-400 10^3/uL Mean Platelet Volume 10.7 H 7.4-10.4 FL Neutrophils (%) (Auto) 64 42-75 % Lymphocytes (%) (Auto) 23 12-44 % Monocytes (%) (Auto) 8 0-12 % Eosinophils (%) (Auto) 4 0-10 % Basophils (%) (Auto) 0 0-10 % Neutrophils # (Auto) 5.0 1.8-7.8 X 10^3 Lymphocytes # (Auto) 1.8 1.0-4.0 X 10^3 Monocytes # (Auto) 0.6 0.0-1.0 X 10^3 Eosinophils # (Auto) 0.3 0.0-0.3 10^3/uL Basophils # (Auto) 0.0 0.0-0.1 10^3/uL Sodium Level 141 135-145 MMOL/L Potassium Level 5.6 H 3.6-5.0 MMOL/L Chloride Level 107 98-107 MMOL/L Carbon Dioxide Level 24 21-32 MMOL/L Anion Gap 10 5-14 MMOL/L Blood Urea Nitrogen 17 7-18 MG/DL Creatinine 1.18 0.60-1.30 MG/DL Estimat Glomerular Filtration Rate 45 BUN/Creatinine Ratio 14 Glucose Level 119 H 70-105 MG/DL Calcium Level 9.6 8.5-10.1 MG/DL Corrected Calcium 9.4 8.5-10.1 MG/DL Magnesium Level 2.1 1.6-2.4 MG/DL Total Bilirubin 0.9 0.1-1.0 MG/DL Aspartate Amino Transf (AST/SGOT) 48 H 5-34 U/L Alanine Aminotransferase (ALT/SGPT) 18 0-55 U/L Alkaline Phosphatase 94 40-136 U/L Total Creatine Kinase 45 29-168 U/L Creatine Kinase MB 0.8 <6.6 NG/ML Myoglobin 41.0 10.0-92.0 NG/ML Troponin I < 0.028 <0.028 NG/ML B-Type Natriuretic Peptide 171.9 H <100.0 PG/ML Total Protein 7.8 6.4-8.2 GM/DL Albumin 4.3 3.2-4.5 GM/DL TSH Grand Testing 2.32 0.35-4.94 UIU/ML Digoxin Level < 0.30 L 0.80-2.00 NG/ML Serum Alcohol < 10 <10 MG/DL Urine Opiates Screen NEGATIVE NEGATIVE Urine Oxycodone Screen NEGATIVE NEGATIVE Urine Methadone Screen NEGATIVE NEGATIVE Urine Propoxyphene Screen NEGATIVE NEGATIVE Urine Barbiturates Screen NEGATIVE NEGATIVE Ur Tricyclic Antidepressants Screen NEGATIVE NEGATIVE Urine Phencyclidine Screen NEGATIVE NEGATIVE Urine Amphetamines Screen NEGATIVE NEGATIVE Urine Methamphetamines Screen NEGATIVE NEGATIVE Urine Benzodiazepines Screen NEGATIVE NEGATIVE Urine Cocaine Screen NEGATIVE NEGATIVE Urine Cannabinoids Screen NEGATIVE NEGATIVE Urine Color YELLOW Urine Clarity CLEAR Urine pH 6.5 5-9 Urine Specific [place] 1.010 L 1.016-1.022 Urine Protein NEGATIVE NEGATIVE Urine Glucose (UA) NEGATIVE NEGATIVE Urine Ketones NEGATIVE NEGATIVE Urine Nitrite NEGATIVE NEGATIVE Urine Bilirubin NEGATIVE NEGATIVE Urine Urobilinogen 0.2 < = 1.0 MG/DL Urine Leukocyte Esterase TRACE H NEGATIVE Urine RBC (Auto) NEGATIVE NEGATIVE Urine RBC NONE /HPF Urine WBC 2-5 /HPF Urine Squamous Epithelial Cells 0-2 /HPF Urine Crystals NONE /LPF Urine Bacteria TRACE /HPF Urine Casts NONE /LPF Urine Mucus NEGATIVE /LPF Urine Culture Indicated YES Test 01/15/20 21:48 01/16/20 02:52 Range/Units Glucometer 101 70-110 MG/DL White Blood Count 8.1 4.3-11.0 10^3/uL Red Blood Count 4.99 4.35-5.85 10^6/uL Hemoglobin 15.3 11.5-16.0 G/DL Hematocrit 45 35-52 % Mean Corpuscular Volume 91 80-99 FL Mean Corpuscular Hemoglobin 31 25-34 PG Mean Corpuscular Hemoglobin Concent 34 32-36 G/DL Red Cell Distribution Width 13.0 10.0-14.5 % Platelet Count 235 130-400 10^3/uL Mean Platelet Volume 10.3 7.4-10.4 FL Neutrophils (%) (Auto) 53 42-75 % Lymphocytes (%) (Auto) 38 12-44 % Monocytes (%) (Auto) 7 0-12 % Eosinophils (%) (Auto) 2 0-10 % Basophils (%) (Auto) 0 0-10 % Neutrophils # (Auto) 4.3 1.8-7.8 X 10^3 Lymphocytes # (Auto) 3.0 1.0-4.0 X 10^3 Monocytes # (Auto) 0.6 0.0-1.0 X 10^3 Eosinophils # (Auto) 0.2 0.0-0.3 10^3/uL Basophils # (Auto) 0.0 0.0-0.1 10^3/uL Sodium Level 142 135-145 MMOL/L Potassium Level 4.2 3.6-5.0 MMOL/L Chloride Level 108 H 98-107 MMOL/L Carbon Dioxide Level 22 21-32 MMOL/L Anion Gap 12 5-14 MMOL/L Blood Urea Nitrogen 17 7-18 MG/DL Creatinine 1.11 0.60-1.30 MG/DL Estimat Glomerular Filtration Rate 49 BUN/Creatinine Ratio 15 Glucose Level 93 70-105 MG/DL Calcium Level 9.7 8.5-10.1 MG/DL Corrected Calcium 9.8 8.5-10.1 MG/DL Total Bilirubin 1.1 H 0.1-1.0 MG/DL Aspartate Amino Transf (AST/SGOT) 28 5-34 U/L Alanine Aminotransferase (ALT/SGPT) 14 0-55 U/L Alkaline Phosphatase 95 40-136 U/L Total Protein 7.0 6.4-8.2 GM/DL Albumin 3.9 3.2-4.5 GM/DL Physical Exam Physical Exam Vital Signs Vital Signs - First Documented 01/15/20 12:20 Temp 36.6 Pulse 66 Resp 18 B/P (MAP) 123/101 (108) Pulse Ox 96 O2 Delivery Room Air Capillary Refill : Less Than 3 Seconds Height, Weight, BMI Height: '" Weight: lbs. oz. kg; 30.21 BMI Method: General Appearance: No Apparent Distress, WD/WN, Other (DROWSY/LETHARGIC, KEEPS EYES CLOSED--OPENS TO VERBAL AND TACTILE STIMULATION) HEENT: PERRL/EOMI Neck: Normal Inspection Respiratory: Normal Breath Sounds, No Accessory Muscle Use, No Respiratory Distress Cardiovascular: No JVD, No Murmur, Normal Peripheral Pulses, Irregularly Irregular Gastrointestinal: Non Tender, Soft Extremity: No Pedal Edema, Other (LIMITED ROM OF RIGHT ARM AT SHOULDER AND TENDERNESS TO RIGHT SHOULDER. ) Neurologic/Psychiatric: Alert, Other (MILD RIGHT LEG WEAKNESS, AND RIGHT VOCAL ARTIST SLIGHTLY WEAKER THAN LEFT. UNABLE TO RAISE RIGHT ARM--PT STATES IS BECAUSE HER SHOULDER HURTS AND CAN'T MOVE IT BECAUSE OF ROTATOR CUFF PROBLEM. PT IS DROWSY. PT INITIALLY HAD SOME "STAMMERING" SPEECH--APPEARS TO BE AT WILL, PT TALKS COMPLETELY NORMAL WHEN DISTRACTED. PT DOES APPEAR TO HAVE SOME LIMITED MEMORY. ) Skin: Normal Color, Warm/Dry; No Ecchymosis; Other (NO EXTERNAL EVIDENCE OF TRAUMA ANYWHERE) A/P-Cardiology Admission Diagnosis Syncope Palpitation Coronary artery disease Persistent atrial fibrillation Assessment/Plan Syncope, probably orthostatic hypotension, initially improved after stopping diuretics and lisinopril. Has been using WILL hose and she is back on diuretics due to peripheral edema. Responding to IV hydration, still having some chest pain, adding Florinef Chest pain nonspecific etiology, atypical in presentation. Associated with palpitation. Cardiac enzymes negative, I'll repeat troponin and planning for stress test tomorrow Coronary artery disease, history of multiple interventions in the past, had a cardiac catheterization February 2019 [place] reported nonobstructive disease. 40-50 percent stenosis in the proximal LAD. Mildly reduced cardiac output. Has been having frequent PVCs and chest pain with palpitation, tolerating beta blockers, cardiac enzymes were negative. Persistent atrial fibrillation, rate controlled, tolerating low-dose beta blockers. Congestive heart failure, chronic compensated left ventricular diastolic dysfunction, last echo was done in September 2019 showing normal LV size with EF 55- 65 percent, left atrium is dilated 4.7 cm, severe mitral regurgitation, moderate severe tricuspid regurgitation, pulmonary hypertension with PA pressure 50-55 mmHg. Continue to monitor History of permanent pacemaker [employer], had it on the left side and it was infected, replaced in August 2018 Right shoulder pain- management per medical services. Hypertension, I am adding Florinef due to recurrent syncope. Monitor tolerance and blood pressure Hyperlipidemia, monitor lipids as outpatient. Gastroesophageal reflux disease maintained on PPI and Carafate. Anxiety, depression Clinical Quality Measures DVT/VTE Risk/Contraindication: Risk Factor Score Per Nursin RFS Level Per Nursing on Admit: 2=Moderate ADELAIDA RIGGS MD Jan 16, 2020 8:56 am
[2020-01-16] MEDS: DOCUSATE SODIUM 100 MG (COLACE) CAP PO SCH ×2 (09:00→20:35)
[2020-01-16] MEDS: meTOprolol TARTRATE 25 MG (LOPRESSOR) TABLET PO SCH ×2 (09:00→20:36)
[2020-01-16] MEDS ORDERED: DIGOXIN 0.125 MG (LANOXIN) TAB PO SCH (09:00)
[2020-01-16] MEDS ORDERED: PARoxetine 20 MG (PAXIL) TAB PO SCH ×2 (09:00→21:00)
[2020-01-16] MEDS: ALPRAZolam 0.5 MG (XANAX) TAB PO SCH ×2 (09:00→20:36)
[2020-01-16] MEDS: SENNOSIDES 8.6 MG (SENOKOT) TAB PO SCH ×2 (09:00→20:36)
[2020-01-16] MEDS ORDERED: REGADENOSON 0.4 MG/5 ML SYR (LEXISCAN) IV ONE ×2 (09:15→11:52)
[2020-01-16] MEDS ORDERED: CELE200C PO (10:07)
[2020-01-16] MEDS ORDERED: POLY238P32 PO (10:07)
[2020-01-16] MEDS ORDERED: PARO40TA3 PO (10:07)
[2020-01-16] MEDS ORDERED: ACET-2840 PO (10:11)
[2020-01-16] MEDS ORDERED: FURO20TA4 PO (10:11)
--- NOTE | 2020-01-16 10:13 | NUR ---
SPOKE WITH THE PT, WENT THRU THE EXT MED HISTORY AND CALLED [facility] AND SHARMIN CARVAJAL TO COMPLETE THE MED REC METOPROLOL TART 25MG LAST FILLED 08-20-2019 #90/90DS- I DID DOCUMENT THE PAST DUE FILL ON THE MED REC DIGOXIN 125MCG- LAST FILL DATE SHOWS 11-01-2019 #30 HOWEVER OVER THE PAST 3 FILLS THE PT HAD RECEIVED IT EARLY. WAS FILLED ON 06-09-2019 #90 THEN 08-20-2019 #90 THEN LAST FILLED ON 11-01-2019 #30- THEREFORE SINCE 06-09-2019 THE PATIENT FILLED #210 TABS WHICH WOULD LAST 7 MONTHS- FOR THIS REASON I DID NOT INCLUDE A PAST DUE FILL DATE ON THE MED REC TYLENOL: PT WAS ADAMANT THAT HER PROFESSOR OF VIOLIN TOLD HER TO TAKE TYLENOL 650MG 2 TABS EVERY 4 HOURS. I VERIFIED WITH THE PT BY ASKING DIFFERENT QUESTIONS AND SHE GAVE ME THE SAME ANSWERS OF THAT STRENGTH AND DIRECTIONS OTC MEDS: TYLENOL 650MG MAGNESIUM MTV FLONASE CALCIUM VIT D
--- NOTE | 2020-01-16 12:28 | History & Physical-Hospitalist ---
History of Present Illness HPI/Chief Complaint Nubia Gore is a 69-year-old female with past medical history of atrial fibrillation, pacemaker, CKD3, COPD, hypertension, coronary artery disease, orthostatic hypotension, who presented with syncope. She reports that she was at her landlord's office and she felt lightheaded and dizzy and passed out in a chair. She thinks she was out for about 5 to 10 minutes. She had been having palpitations. She denies any chest pain. She denies any fevers or chills. She denies any shortness of breath or cough. She denies any abdominal pain, nausea, vomiting, diarrhea, or constipation. She denies any dysuria. She has no other complaints or concerns. Source: patient Exam Limitations: no limitations Date Seen 01/16/20 Time Seen by a Provider: 10:00 Attending Physician Atif Martel MD PCP Alfonzo Hector MD Referring Physician Date of Admission Jan 15, 2020 at 14:50 Home Medications & Allergies Home Medications Reviewed patient Home Medication Reconciliation performed by pharmacy medication reconciliations botany technician and/or nursing. Patients Allergies have been reviewed. Allergies Allergies Coded Allergies Sulfa (Sulfonamide Antibiotics) (Verified Allergy, Unknown, 04/26/19) morphine (Verified Allergy, Unknown, 04/26/19) Past Yajuurc-Fvavwf-Srbrfh Hx Past Med/Social Hx: Reviewed Nursing Past Med/Soc Hx Patient Social History Marrital Status: Employed/Student: retired Alcohol Use: Denies Use Recreational Drug Use: No Smoking Status: Never a Smoker 2nd Hand Smoke Exposure: No Recent Foreign Travel: No Contact w/other who traveled: No Recent Hopitalizations: No Recent Infectious Disease Expo: No Immunizations Up To Date Date of Pneumonia Vaccine: Sep 06, 2019 Date of Influenza Vaccine: May 06, 2019 Seasonal Allergies Seasonal Allergies: Yes Past Medical History Surgeries: Adenoidectomy, Appendectomy, Cardiac, Gallbladder, Hysterectomy, Oophorectomy, Pacemaker, Rectal, Tonsillectomy Cardiac: Atrial Fibrillation, Cardiomyopathy, Coronary Artery Disease, Heart Attack, High Cholesterol, Hypertension, Irregular Heartbeat, Syncope Neurological: Stroke Hysterectomy, Menopausal Gastrointestinal: Gastroesophageal Reflux Musculoskeletal: Arthritis Endocrine: Hypothyroidsim Psychosocial: Anxiety, Bipolar, Depression History of Blood Disorders: No Family History No Pertinent Family Hx Review of Systems Constitutional: dizziness EENTM: no symptoms reported Respiratory: no symptoms reported Cardiovascular: palpitations Gastrointestinal: no symptoms reported Genitourinary: no symptoms reported Musculoskeletal: no symptoms reported Skin: no symptoms reported Psychiatric/Neurological: No Symptoms Reported Physical Exam Physical Exam Vital Signs Vital Signs - First Documented 01/15/20 01/16/20 12:20 13:57 Temp 36.6 Pulse 66 Resp 18 B/P (MAP) 123/101 (108) Pulse Ox 96 O2 Delivery Room Air O2 Flow Rate 2.00 Capillary Refill : Less Than 3 Seconds Height, Weight, BMI Height: '" Weight: lbs. oz. kg; 30.21 BMI Method: General Appearance: No Apparent Distress, WD/WN, Obese HEENT: PERRL/EOMI, Pharynx Normal Neck: Normal Inspection, Supple Respiratory: Lungs Clear, Normal Breath Sounds, No Respiratory Distress Cardiovascular: No Edema, No Murmur, Irregularly Irregular (Regular rate) Gastrointestinal: Normal Bowel Sounds, Non Tender, Soft Extremity: Normal Inspection, Non Tender, No Pedal Edema Neurologic/Psychiatric: Alert, Oriented x3, No Motor/Sensory Deficits, Normal Mood/Affect Skin: Normal Color, Warm/Dry Results Results/Procedures Labs Laboratory Tests 01/16/20 02:52 01/16/20 13:55 Patient resulted labs reviewed. Imaging: Reviewed Imaging Report Assessment/Plan Admission Diagnosis Syncope due to orthostatic hypotension Admission Status: Inpatient Order (span 2 midnights) Reason for Inpatient Admission: Syncope requiring further evaluation Assessment and Plan Syncope due to orthostatic hypotension Previous history of orthostasis Lab workup unremarkable CT head unremarkable Troponin negative Monitor on telemetry Cardiology consulted, appreciate assistance Planning for stress test Paroxysmal atrial fibrillation Chronic kidney disease COPD Hypertension Coronary artery disease Pacemaker Continue home meds DVT prophylaxis: Already receiving therapeutic anticoagulation Diagnosis/Problems Diagnosis/Problems (1) Syncope due to orthostatic hypotension Status: Acute Clinical Quality Measures DVT/VTE Risk/Contraindication: Risk Factor Score Per Nursin RFS Level Per Nursing on Admit: 2=Moderate ATIF MARTEL MD Jan 16, 2020 12:28
--- NOTE | 2020-01-16 13:45 | NUR ---
THIS RN CALLED DR MARTEL AND NOTIFIED HIM OF PT FALL AND PT CURRENT CONDITION. VITALS GIVEN TO DR. RUCKER ORDERED CT OF HEAD/CSPINE.
[2020-01-16] MEDS: CATHETER FLUSH 10 ML SYR IV SCH ×2 (13:53→20:37)
--- NOTE | 2020-01-16 14:00 | NUR ---
DR RIGGS CALLED BY THIS RN AND NOTIFIED OF PT FALL AND PUT CURRENT CONDITION. DR NOTIFIED THAT PACEMAKER INTERROGATION IS BEING DONE AT THIS TIME. DR STATED HE WOULD REVIEW PT STRESS TEST IMAGES AND BE IN CONTACT WITH THIS RN IF NEEDED.
[2020-01-16 14:04] LABS: BASOPHILS % (AUTO) 0 % (0-10); EOSINOPHILS # (AUTO) 0.1 10^3/uL (0.0-0.3); EOSINOPHILS % (AUTO) 1 % (0-10); HEMATOCRIT 44 % (35-52); HEMOGLOBIN 15.2 G/DL (11.5-16.0); LYMPHOCYTES # (AUTO) 2.2 X 10^3 (1.0-4.0); LYMPHOCYTES % (AUTO) 28 % (12-44); MEAN CORPUSCULAR HEMOGLOBIN 31 PG (25-34); MEAN CORPUSCULAR HGB CONC 34 G/DL (32-36); MEAN CORPUSCULAR VOLUME 91 FL (80-99); MONOCYTES # (AUTO) 0.5 X 10^3 (0.0-1.0); MONOCYTES % (AUTO) 6 % (0-12); NEUTROPHILS % (AUTO) 64 % (42-75); PLATELET COUNT 237 10^3/uL (130-400); RED CELL DISTRIBUTION WIDTH 13.1 % (10.0-14.5); WHITE BLOOD COUNT 7.8 10^3/uL (4.3-11.0)
--- NOTE | 2020-01-16 14:10 | NUR ---
TIMELINE OF EVENTS: 1336: THIS RN WALKED INTO ROOM TO ANSWER PT BATHROOM CALL LIGHT. PT BATHROOM DOOR SHUT. THIS RN CALLED OUT TO PT, NO RESPONSE. THIS RN WALKED INTO BATHROOM, PT LAYING ON FLOOR FACEDOWN, LEGS EXTENDED OUT IN FRONT. NO RESPONSE FROM PT. THIS RN FELT FOR PULSE, WEAK, AND CALLED FOR HELP. THIS RN CONTINUED TO ATTEMPT A RESPONSE FROM PT UNTIL HELP ARRIVED WHILE STABILIZING NECK. FLOOR DRY AND CLEAR OF CLUTTER, PT WEARING NONSKID SOCKS. 1337: OTHER RNS, AND MULTIPLE STAFF MEMBERS ARRIVED IN ROOM. THIS RN CONTINUED TO STABILIZE PT NECK WHILE PT WAS LOG ROLLED PT UNRESPONSIVE, BREATHING BUT HAS FAINT PULSE. 1338: CODE BLUE CALLED. 1340: PT NECK STABILIZED, TRANSFERRED FROM BATHROOM FLOOR TO BED. RT BAGGING, THIS RN STABILIZED PT NECK. ONCE ON BED, C-COLLAR PLACED. 1341: PT RESPONDING, RT PLACED NASAL CANULA. VITALS: HR 68, SPO2 100% 2L NC, TEMP 36.8, BP 157/80. 1345: PT ALERT AND ORIENTED. 1347: BLOOD SUGAR 145. 1348: PT COMPLAINS OF R SHOULDER PAIN, BRIDGE OF NOSE SORE, L EYE SORE AND SWOLLEN. 1352: PT TALKING BUT CONFUSED. PT VERY LETHARGIC. 1354: LABS DRAWN: CBC, CMP, PT/INR/PTT. 1355: PT AWAKE. 1358: EKG OBTAINED, SEE CHART. 1400: PACEMAKER INTERROGATED DUE TO HR DROPPING TO 30S PERIODICALLY. 1405: RADIOLOGY TO ROOM TO TAKE PT TO CT.
[2020-01-16 14:20] LABS: INR 1.1 (0.8-1.4); PROTHROMBIN TIME PATIENT 14.6 SEC (12.2-14.7)
[2020-01-16 14:28] LABS: POTASSIUM 4.1 MMOL/L (3.6-5.0)
[2020-01-16 14:30] LABS: CALCIUM 9.5 MG/DL (8.5-10.1)
[2020-01-16 14:33] LABS: BILIRUBIN,TOTAL 1.1 MG/DL (0.1-1.0)
[2020-01-16 14:34] LABS: CREATININE SERUM 1.22 MG/DL (0.60-1.30)
--- NOTE | 2020-01-16 14:53 | Diagnostic Imaging Report ---
CLINICAL INDICATION: Patient was sitting on the stool and fell face down onto the floor. EXAM: Axial Head CT without IV contrast with sagittal and coronal reformations. Axial CT scan of the cervical spine with sagittal and coronal reformations. Auto Exposure Controls were utilized during the CT exam to meet ALARA standards for radiation dose reduction. COMPARISON: CT scan of the head, face, and cervical spine without contrast dated 09/06/2019. FINDINGS: Head CT: There is skull streak artifact involving the brainstem, posterior fossa, and portions of the brain near the skull. There is no evidence of acute cerebral infarct, intracranial hemorrhage, or gross mass effect. The brain parenchymal volume appears appropriate for patient's age. There are small patchy areas of low-attenuation white matter changes seen throughout both cerebral hemispheres, likely representing mild chronic small vessel ischemic disease. There is normal conner-white matter distinction. There is no significant midline shift or herniation. There is no evidence of hydrocephalus. The basal cisterns are unremarkable. The skull, extracranial soft tissue, and orbits are unremarkable. There is minimal mucosal thickening involving the ethmoid sinus. Temporal bones show no significant abnormality. Cervical spine: There is no acute fracture or dislocation. There are small vertebral body spurs involving the C5-C6 and C6-C7 levels. There is mild bilateral facet arthropathy. There is no significant neck soft tissue abnormality. There is mild atelectasis or scarring in both upper lobes. IMPRESSION: 1: There is no evidence of acute intracranial process. There is no intracranial hemorrhage or skull fracture. 2: There is cervical spine degenerative disease with no acute fracture or dislocation. Dictated by: Dictated on workstation # [id number]
--- NOTE | 2020-01-16 15:06 | NUR ---
CM/SS: Visited with pt as to her plan for discharge Plan: Undetermined at this time. Summary: Pt is in bed after having had a fall earlier on this date. Pt reports being dizzy and that she just fell. Pt reports lately she has just felt very tired. Pt also says that she had help in the the home and she has [employer]. This is information that has not been verified. Pt reports having a caregiver and gets hours. This worker will follow up with [facility] and determine the number of hours that pt has a week to assist her in the home. This worker will follow up.
--- NOTE | 2020-01-16 15:16 | NUR ---
THIS RN NOTIFIED DR MARTEL OF CT RESULTS, ORDERS RECEIVED OK TO REMOVE C COLLAR. C COLLAR REMOVED BY THIS RN.
[2020-01-16] MEDS: FLUDROCORTISONE 0.1 MG (FLORINEF) TAB PO SCH (15:39)
[2020-01-16] MEDS: APIXABAN 5 MG (ELIQUIS) TABLET PO SCH ×2 (15:40→20:35)
--- NOTE | 2020-01-16 16:14 | Cardiology Stress Test Report ---
Stress Test Report Date of Procedure/Referring: Date of Procedure: Jan 16, 2020 PCP Nayana Chatterjee MD Admitting Physician Alfonzo Hector MD Indications: Syncope, coronary artery disease Baseline Heart Rate: 71 Baseline Blood Pressure: Blood Pressure Systolic: 127 Blood Pressure Diastolic: 72 Baseline Vitals Vital Signs Date Time Temp Pulse Resp B/P (MAP) Pulse Ox O2 Delivery O2 Flow Rate FiO2 01/15/20 12:20 36.6 66 18 123/101 (108) 96 Room Air 01/16/20 13:57 2.00 Baseline EKG: Baseline EKG: atrial fibrillation, frequent PVCs/ventricular bigeminy Summary After explaining the procedure to the patient, she signed a consent and then brought to the stress nuclear laboratory. Patient received 0.4 mg Lexiscan for stress test, ECG, heart rate and blood pressure were monitored continuously. Resting and stress dose of radio tracer were injected, imaging was acquired and reviewed in short axis, horizontal long axis and vertical long axis views. TID: 1.09 SSS: 0 SDS: 0 1. Patient tolerated Lexiscan well 2. Baseline frequent PVCs and ventricular bigeminy persisted throughout test 3. No ischemia or infarction on SPECT images 4. No gated images were done due to the irregular heart rate ADELAIDA RIGGS MD Jan 16, 2020 4:14 pm
[2020-01-16] MEDS ORDERED: NS IV 1000 ML 1,000 ML IV ONE (16:45)
[2020-01-16] MEDS ORDERED: NS IV 1000 ML 1,000 ML ONE (16:47)
[2020-01-16] MEDS: traZODone 100 MG (DESYREL) TAB PO SCH (20:36)
[2020-01-17] VITALS (7 sets, daily range): BP systolic 92–132; BP diastolic 56–92
[2020-01-17] MEDS: inSUlin ASPART (NovoLOG) 1 UNIT/0.01 ML (CHARGE PER UNIT) SC SCH (05:40)
[2020-01-17] MEDS: ACETAMINOPHEN 325 MG TABLET PO PRN (05:40)
[2020-01-17] MEDS: CATHETER FLUSH 10 ML SYR IV SCH (05:41)
[2020-01-17] MEDS: FLUDROCORTISONE 0.1 MG (FLORINEF) TAB PO SCH (08:31)
[2020-01-17] MEDS: SENNOSIDES 8.6 MG (SENOKOT) TAB PO SCH (08:31)
[2020-01-17] MEDS: ALPRAZolam 0.5 MG (XANAX) TAB PO SCH (08:31)
[2020-01-17] MEDS: DOCUSATE SODIUM 100 MG (COLACE) CAP PO SCH (08:31)
[2020-01-17] MEDS: meTOprolol TARTRATE 25 MG (LOPRESSOR) TABLET PO SCH (08:31)
[2020-01-17] MEDS: APIXABAN 5 MG (ELIQUIS) TABLET PO SCH (08:31)
--- NOTE | 2020-01-17 10:14 | Cardiology Progress Note ---
Subjective Date Seen by Provider: Jan 17, 2020 Time Seen by Provider: 10:09 Subjective/Events-last exam Patient is laying down in bed, sleepy, falling asleep easily while talking to her. Reporting dizziness, had a syncopal episode yesterday Review of Systems General: No Chills, No Night Sweats; Fatigue; No Malaise, No Appetite, No Other HEENT: No Head Aches, No Visual Changes, No Eye Pain, No Ear Pain, No Dysphasia, No Sinus Congestion, No Post Nasal Drip, No Sore Throat, No Other Pulmonary: No Dyspnea, No Cough, No Pleuritic Chest Pain, No Other Cardiovascular: Lt Headedness; No: Chest Pain, Palpitations, Orthopnea, Paroxysmal Noc. Dyspnea, Edema, Other Objective-Cardiology Exam Last Set of Vital Signs Vital Signs 01/16/20 01/17/20 01/17/20 21:00 07:27 08:30 Temp 36.9 Pulse 67 Resp 19 B/P (MAP) 112/56 (74) Pulse Ox 95 O2 Flow Rate 2.00 Capillary Refill : Less Than 3 Seconds I&O Intake and Output 01/17/20 00:00 Intake Total 1450 ml Output Total 1900 ml Balance -450 ml Intake Oral 450 ml IV Total 1000 ml Output Urine Total 1900 ml General: Alert, Oriented X3, Cooperative HEENT: Atraumatic, PERRLA Neck: Supple, No JVD, No Thyromegaly Lungs: Clear to Auscultation, Normal Air Movement Heart: Regular Rate, Normal S1, Normal S2, No Murmurs Abdomen: Normal Bowel Sounds, Soft, No Tenderness, No Hepatosplenomegaly, No Masses Extremities: No Clubbing, No Cyanosis, No Edema, Normal Pulses, No Tenderness/Swelling Skin: No Rashes, No Breakdown, No Significant Lesion Neuro: Normal Gait, Normal Speech, Strength at 5/5 X4 Ext, Normal Tone, Se nsation Intact Psych/Mental Status: Mental Status NL, Mood NL Results Lab Laboratory Tests 01/16/20 13:55 A/P-Cardiology Admission Diagnosis Syncope Palpitation Coronary artery disease Persistent atrial fibrillation Assessment/Plan Syncope, probably orthostatic hypotension, initially improved after stopping diuretics and lisinopril. Having multiple syncopal episode and very sleepy for the past 2 days. Patient is taking Xanax and melatonin, I discontinued both and educated her on taking more fluid and started her on Florinef. Continue to monitor Chest pain nonspecific etiology, atypical in presentation. Associated with palpitation. Cardiac enzymes negative, stress test done on January 16, 2020 did not show ischemia or infarction Coronary artery disease, history of multiple interventions in the past, had a cardiac catheterization February 2019 [place] reported nonobstructive disease. 40-50 percent stenosis in the proximal LAD. Mildly reduced cardiac output. Has been having frequent PVCs and chest pain with palpitation, tolerating beta blockers, cardiac enzymes were negative. stress test showed no ischemia or infarction Persistent atrial fibrillation, rate controlled, tolerating low-dose beta blockers. Congestive heart failure, chronic compensated left ventricular diastolic dysfunction, last echo was done in September 2019 showing normal LV size with EF 55- 65 percent, left atrium is dilated 4.7 cm, severe mitral regurgitation, moderate severe tricuspid regurgitation, pulmonary hypertension with PA pressure 50-55 mmHg. Continue to monitor History of permanent pacemaker [employer], had it on the left side and it was infected, replaced in August 2018 Right shoulder pain- management per medical services. Hypertension, I am adding Florinef due to recurrent syncocontinue to monitor her tolerance Hyperlipidemia, monitor lipids as outpatient. Gastroesophageal reflux disease maintained on PPI and Carafate. Anxiety, depression Clinical Quality Measures DVT/VTE Risk/Contraindication: Risk Factor Score Per Nursin RFS Level Per Nursing on Admit: 2=Moderate ADELAIDA RIGGS MD Jan 17, 2020 10:14
[2020-01-17] MEDS ORDERED: FLDR.1T PO (11:10)
--- NOTE | 2020-01-17 11:18 | Discharge Summary ---
Discharge Summary Reconcile Patient Problems Problems Reviewed?: Yes Instructions for Patient Via [employer], Assessment/Instructions Take medications as prescribed. Begin taking fludrocortisone for orthostasis. Continue to use your WILL hose. Follow-up with your primary care physician, Dr. Hector. Physician to follow Patient: Tawny Discharge Diet for Home: No Restrictions Hospital Course Date of Admission: Jan 15, 2020 at 14:50 Admission Diagnosis : Syncope due to orthostatic hypotension Family Physician/Provider: Alfonzo Hector MD Date of Discharge: 01/17/20 Discharge Diagnosis: Syncope due to orthostatic hypotension Hospital Course: Nubia Gore is a 69-year-old female who was admitted with syncope due to orthostatic hypotension. This has been an issue for her previously. She did receive a work up on admission which included extensive labs and imaging which did not reveal any cause for her orthostasis. Cardiology was consulted and assisted in her care. She underwent serial troponin testing which was negative. She underwent pacemaker evaluation which revealed no abnormalities other than some atrial fibrillation with rapid ventricular response prior to admission. She underwent a stress test which revealed no abnormalities. She is on several medicines which could be contributing to her orthostatic hypotension. Her Xanax, trazodone, and melatonin were discontinued. She should continue her compression stockings. She was started on fludrocortisone. She should follow- up with her primary care physician, Dr. Hector, in about a week. Labs and Pending Lab Test: Laboratory Tests 01/16/20 13:47: Glucometer 145H 01/16/20 13:55: White Blood Count 7.8, Red Blood Count 4.85, Hemoglobin 15.2, Hematocrit 44, Mean Corpuscular Volume 91, Mean Corpuscular Hemoglobin 31, Mean Corpuscular Hemoglobin Concent 34, Red Cell Distribution Width 13.1, Platelet Count 237, Mean Platelet Volume 10.0, Neutrophils (%) (Auto) 64, Lymphocytes (%) (Auto) 28, Monocytes (%) (Auto) 6, Eosinophils (%) (Auto) 1, Basophils (%) (Auto) 0, Neutrophils # (Auto) 5.0, Lymphocytes # (Auto) 2.2, Monocytes # (Auto) 0.5, Eosinophils # (Auto) 0.1, Basophils # (Auto) 0.0, Prothrombin Time 14.6, INR Comment 1.1, Activated Partial Thromboplast Time 51H, Sodium Level 139, Potassium Level 4.1, Chloride Level 106, Carbon Dioxide Level 22, Anion Gap 11, Blood Urea Nitrogen 16, Creatinine 1.22, Estimat Glomerular Filtration Rate 44, BUN/Creatinine Ratio 13, Glucose Level 131H, Calcium Level 9.5, Corrected Calcium 9.5, Total Bilirubin 1.1H, Aspartate Amino Transf (AST/SGOT) 29, Alanine Aminotransferase (ALT/SGPT) 16, Alkaline Phosphatase 95, Total Protein 7.0, Albumin 4.0 01/16/20 15:28: Glucometer 89 01/16/20 20:17: Glucometer 157H 01/16/20 21:32: Glucometer 129H 01/17/20 05:37: Glucometer 104 Microbiology 01/15/20 Urine Culture - Preliminary, Resulted Culture In Progress Home Meds Active Fludrocortisone Acetate 0.1 Mg Tab 0.1 Mg PO DAILY 30 Days Reported Tylenol 8 Hour (Acetaminophen) 650 Mg Tablet.er 1,300 Mg PO Q4H Furosemide 20 Mg Tablet 20 Mg PO DAILY PRN Celebrex (Celecoxib) 200 Mg Capsule 200 Mg PO BID Paroxetine HCl 40 Mg Tablet 40 Mg PO HS Magnesium (Magnesium Oxide) 400 Mg Tablet 400 Mg PO DAILY Calcium (Calcium Carbonate) 600 Mg Tablet 600 Mg PO DAILY Vitamin D3 (Cholecalciferol (Vitamin D3)) 125 Mcg Tablet 125 Mcg PO DAILY Lanoxin (Digoxin) 125 Mcg Tablet 125 Mcg PO DAILY Potassium Chloride 10 Meq Capsule.er 10 Meq PO DAILY PRN One Daily For Women Tablet (Folic Acid/Mv,Fe,Other Min) 1 Each Tablet 1 Each PO DAILY Melatonin-Vit B6 3 mg-1 mg Tab (Melatonin/Pyridoxine HCl (B6)) 1 Each Tablet 1 Each PO HS Fluticasone Propionate 16 Gm Campbell.susp 2 Sprays NS DAILY PRN Alprazolam 0.25 Mg Tablet 0.25 Mg PO BID PRN Miralax (Polyethylene Glycol 3350) 17 Gm Powd.pack 17 Gm PO DAILY Trazodone HCl 100 Mg Tablet 100 Mg PO HS Metoprolol Tartrate 25 Mg Tablet 12.5 Mg PO 1200,2200 LAST FILLED 08-20-2019 #90/90 DAY SUPPLY TAKES 1/2 (25MG) TABLET Consulations Cardiology Patient Allergies: Coded Allergies: Sulfa (Sulfonamide Antibiotics) (Verified Allergy, Unknown, 04/26/19) morphine (Verified Allergy, Unknown, 04/26/19) Home Health Need/Face to Face Date of Face to Face: Jan 17, 2020 Clinical Findings: Generalized weakness and fatigue, Instability I have seen Pt [id number]: Yes Discharged To: Home Diagnosis/Conditions: Debility, orthostatic hypotension Problems/Diagnosis/Condition: (1) Orthostatic hypotension (2) Syncope (3) Debility Patient is Homebound due to: Liu fall risk due to instabilty Homebound Status Due to the above stated illness, injury or surgical procedure (medical condition or diagnosis) and associated clinical findings, the patient is homebound because of his/her inability to leave home except with aid of a supportive device and/or person AND leaving the home requires a considerable and taxing effort or is medically contraindicated. Pt req the following assistanc: Aid of another person, Cane Home Health Nursing Orders Home Health Services Order: Nursing Services, Microbiology Quality Control Technician-Evaluate & Treat, Physical Therapy-Evaluate & Treat Home Health Infusion Therapy Line Start Date: Jan 15, 2020 Therapy Orders Therapy Orders: OT (must have SN or PT order), Physical Therapy Therapy Specific Orders: Eval assistive deivces, Teach enviro modifications/safety, Gait training, Increase strength/endurance Certify Stmt I certify that this patient is under my care and that I, a nurse practitioner or a physician; a entry level assistant manager working with me, had a face to face encounter that - meets the physician face to face encounter requirements with this patient as dated. Discharge Physical Exam General: Alert, Oriented X3, Cooperative, No Acute Distress HEENT: Atraumatic, EOMI, Mucous Memb Moist/[place] Lungs: Clear to Auscultation, Normal Air Movement Heart: Other (Irregularly irregular, regular rate) Abdomen: Normal Bowel Sounds, Soft, No Tenderness Extremities: No Edema, No Tenderness/Swelling Skin: No Rashes, No Significant Lesion Neuro: Normal Speech Psych/Mental Status: Mental Status NL, Mood NL ATIF MARTEL MD Jan 17, 2020 11:17
--- NOTE | 2020-01-17 13:09 | NUR ---
CM/SS finalized discharge plan. Plan: Patient will discharge home with Home Health and her private caregivers. Patients caregiver Roseline will transport patient home. Home Health: The patient was provided a patient preference form and chose [facility]. CM/SS contacted [facility] and spoke with Jaqueline. She states they cannot take the patient due to [employer] and not being contracted. CM/SS asked the patient for second choice. She stated [facility]. CM/SS contacted [facility] and made referral. The patient asked this ss about a four-wheeled- walker with a seat. She states that she has a front wheeled walker at home but sometimes gets fatigued easily. CM/SS contacted [facility] to get guidelines for Medicare coverage. The patient has a follow up with Dr. Hector and will ask him to assess her for a [id number]. The patient verbalized understanding. No further needs at this time.
== END 2020-01-17 13:25 | disposition home health service (06) | DRG 312 ==
LOC: ER 12:28 → EDUNIT# 12:28 → CSD 14:50
PROVIDERS: ADMIT Internal Medicine; ATTEND Internal Medicine
DX: I95.1 Orthostatic hypotension (principal); I48.19 Other persistent atrial fibrillation; I50.32 Chronic diastolic (congestive) heart failure; I42.8 Other cardiomyopathies; I69.351 Hemiplegia and hemiparesis following cerebral infarction affecting right dominant side; T46.4X5A Adverse effect of angiotensin-converting-enzyme inhibitors, initial encounter; T50.2X5A Adverse effect of carbonic-anhydrase inhibitors, benzothiadiazides and other diuretics, initial encounter; I25.10 Atherosclerotic heart disease of native coronary artery without angina pectoris; I11.0 Hypertensive heart disease with heart failure; I27.20 Pulmonary hypertension, unspecified; I25.2 Old myocardial infarction; E78.00 Pure hypercholesterolemia, unspecified; I08.1 Rheumatic disorders of both mitral and tricuspid valves; K21.9 Gastro-esophageal reflux disease without esophagitis; F41.9 Anxiety disorder, unspecified; F31.9 Bipolar disorder, unspecified; E03.9 Hypothyroidism, unspecified; M19.91 Primary osteoarthritis, unspecified site; J44.9 Chronic obstructive pulmonary disease, unspecified; J30.2 Other seasonal allergic rhinitis; M25.511 Pain in right shoulder; R51 Headache; I49.3 Ventricular premature depolarization; Z95.0 Presence of cardiac pacemaker; Z91.19 Patient's noncompliance with other medical treatment and regimen; Z88.2 Allergy status to sulfonamides; Z88.5 Allergy status to narcotic agent
CPT/HCPCS: 36415; 70450; 70496; 70498; 71045; 72125; 80053; 80162; 80306; 80320; 81000; 82550; 82553; 82962; 83735; 83874; 83880; 84443; 84484; 85025; 85610; 85730; 87088; 93005; 93041

== ENCOUNTER → 2020-01-30 | Outpatient (CLI) | payer MEDICARE, MEDICAID ==
[~2020-01-30] MED LIST changes: +ACET-2840 PO; -CALC600T12 PO; +CALC600T14 PO; +CELE200C PO; +FLDR.1T PO; +POLY238P32 PO
== END ==
LOC: CARD 08:24
PROVIDERS: ATTEND Internal Medicine Cardiovascular Disease
DX: I48.0 Paroxysmal atrial fibrillation (principal); I25.10 Atherosclerotic heart disease of native coronary artery without angina pectoris; I10 Essential (primary) hypertension; R55 Syncope and collapse; Z95.0 Presence of cardiac pacemaker
CPT/HCPCS: 93225; 93226

== ENCOUNTER → 2020-03-04 | Outpatient (CLI) | payer MEDICARE, MEDICAID | LOC: LABNPT 05:30 | PROVIDERS: ATTEND Nurse Practitioner Family | DX: Z01.812 Encounter for preprocedural laboratory examination (principal); Z20.828 Contact with and (suspected) exposure to other viral communicable diseases ==

== ENCOUNTER → 2020-03-19 | Outpatient (CLI) | payer MEDICARE, MEDICAID ==
[~2020-03-19] MED LIST changes: -CALC600T14 PO; +CLC600T PO
== END ==
LOC: LABNPT 05:45
PROVIDERS: ATTEND Nurse Practitioner Family
DX: Z01.812 Encounter for preprocedural laboratory examination (principal); Z20.828 Contact with and (suspected) exposure to other viral communicable diseases
CPT/HCPCS: 87635

== ENCOUNTER 2020-03-21 20:48 | Outpatient (CLI) | payer MEDICARE, MEDICAID | END 2020-03-22 07:10 | disposition home or self-care (01) | LOC: SLEEP 20:48 | PROVIDERS: ATTEND Nurse Practitioner Family | DX: G47.33 Obstructive sleep apnea (adult) (pediatric) (principal); G47.10 Hypersomnia, unspecified; J30.9 Allergic rhinitis, unspecified; R55 Syncope and collapse; Z90.49 Acquired absence of other specified parts of digestive tract; Z90.89 Acquired absence of other organs; Z96.659 Presence of unspecified artificial knee joint; Z98.51 Tubal ligation status; Z98.890 Other specified postprocedural states | CPT/HCPCS: 95810 ==

== ENCOUNTER → 2020-07-02 | Outpatient (CLI) | payer MEDICARE, MEDICAID ==
[~2020-07-02] MED LIST changes: +ALPR.25T PO; -ALPR0.254 PO
--- NOTE | 2020-07-02 13:41 | Diagnostic Imaging Report ---
INDICATION: Wrist pain. Recent fall. COMPARISON: None. FINDINGS: Multiple radiographic views of the left wrist were obtained. There is no evidence of acute fracture or dislocation. There is abnormal widening of the scapholunate joint space, suggestive of underlying ligamentous injury. There is also narrowing of the lunocapitate joint space with sclerotic remodeling to the articular surfaces. There is also moderate osteoarthritic change to the 1st carpometacarpal joint space. The joint spaces are otherwise intact. No unexpected radiopaque foreign bodies are seen. IMPRESSION: 1. No acute fracture or dislocation of the left wrist. 2. Abnormal widening of the scapholunate joint space, suggestive of underlying ligamentous injury. 3. Moderate osteoarthritic changes to the left wrist. Dictated by: Dictated on workstation # [id number]
== END ==
LOC: RAD 11:45
PROVIDERS: ATTEND Internal Medicine
DX: M19.032 Primary osteoarthritis, left wrist (principal); M25.832 Other specified joint disorders, left wrist; W19.XXXA Unspecified fall, initial encounter
CPT/HCPCS: 73110

== ENCOUNTER 2021-12-15 15:13 | Emergency (ER) | payer MEDICARE, MEDICAID ==
[~2021-12-15] VITALS: Ht 152.4 cm; Wt 78.3 kg
[~2021-12-15 15:13] MED LIST changes: +CALC600T91 PO; -CLC600T PO; -LISI2.5T PO; +LISI2.5T13 PO; -POTA10TA36 PO; +POTA10TA37 PO
[2021-12-15 15:28] VITALS: BP 144/80
--- NOTE | 2021-12-15 15:53 | ED General ---
General Chief Complaint: Dizziness/Syncope Stated Complaint: BODY PAIN Nursing Triage Note: PT AMBULATORY INTO ER WITH COMPLAINT OF PAIN ALL OVER. PT STATES THAT SHE HAS HISTORY OF RHEUMATIC ARTHRITIS. PT STATES THAT THIS PAIN IS MUCH MORE SEVERE THEN NORMAL. PT TOOK TYLENOL WITHOUT RELIEF. PAIN AT A 12/10. Source of Information: Patient Exam Limitations: No Limitations History of Present Illness Date Seen by Provider: Dec 15, 2021 Time Seen by Provider: 15:24 Initial Comments Patient to the ER with her caregiver and chief complaint that she is having all over body pain and her muscles are knotted up. She has a history of rheumatoid arthritis used to be on methotrexate but quit 7 months ago when she moved to [place]. She has a PCP there but recently moved back to [place] and does not have a PCP. She does not want to follow-up with Dr. Gutiérrez anymore. She is not having any fevers or chills. No history of diabetes. She has a history of heart disease with a stent and pacemaker and does not take NSAIDs. She did take Tylenol without relief of pain. Her symptoms started getting worse in the past 2 days. She has not been on steroids for over a year. Patient had a fall last week landing on her right forearm. She went to the [place] ER had imaging done and was told there is nothing broken but she needed to follow-up with Dr. Walsh. She would prefer to follow-up with Dr. Avila who she already has a prior relationship with. Allergies and Home Medications Allergies Coded Allergies: Sulfa (Sulfonamide Antibiotics) (Verified Allergy, Unknown, 04/26/19) morphine (Verified Allergy, Unknown, 04/26/19) Patient Home Medication List Home Medication List Reviewed: Yes Acetaminophen (Tylenol 8 Hour) 650 Mg Tablet.er, 1,300 MG PO Q4H, (Reported) Entered as Reported by: DEVON HILL on 01/16/20 1011 Calcium Carbonate (Calcium) 600 Mg Tablet, 600 MG PO DAILY, (Reported) Entered as Reported by: DEVON HILL on 09/21/19 1546 Celecoxib (Celebrex) 200 Mg Capsule, 200 MG PO BID, (Reported) Entered as Reported by: DEVON HILL on 01/16/20 1007 Cholecalciferol (Vitamin D3) (Vitamin D3) 125 Mcg Tablet, 125 MCG PO DAILY, (Reported) Entered as Reported by: DEVON HILL on 09/21/19 1546 Digoxin (Lanoxin) 125 Mcg Tablet, 125 MCG PO DAILY, (Reported) Entered as Reported by: DEVON HILL on 09/21/19 1546 Fludrocortisone Acetate (Fludrocortisone Acetate) 0.1 Mg Tab, 0.1 MG PO DAILY Prescribed by: ATIF MARTEL on 01/17/20 1110 Fluticasone Propionate (Fluticasone Propionate) 16 Gm [place]go.susp, 2 SPRAYS NS DAILY PRN for ALLERGIES, (Reported) Entered as Reported by: MERCED PETERS on 08/15/19 0840 Folic Acid/Mv,Fe,Other Min (One Daily For Women Tablet) 1 Each Tablet, 1 EACH PO DAILY, (Reported) Entered as Reported by: DEVON HILL on 09/07/19 1540 Furosemide (Furosemide) 20 Mg Tablet, 20 MG PO DAILY PRN for FLUID RETENTION, (Reported) Entered as Reported by: DEVON HILL on 01/16/20 1011 Magnesium Oxide (Magnesium) 400 Mg Tablet, 400 MG PO DAILY, (Reported) Entered as Reported by: DEVON HILL on 09/21/19 1546 Metoprolol Tartrate (Metoprolol Tartrate) 25 Mg Tablet, 12.5 MG PO 1200,2200, (Reported) Entered as Reported by: MADDISON GALLOWAY on 04/26/19 1805 Paroxetine HCl (Paroxetine HCl) 40 Mg Tablet, 40 MG PO HS, (Reported) Entered as Reported by: DEVON HILL on 01/16/20 1007 Polyethylene Glycol 3350 (Miralax) 17 Gm Powd.pack, 17 GM PO DAILY, (Reported) Entered as Reported by: MERCED PETERS on 04/27/19 0857 Potassium Chloride (Potassium Chloride) 10 Meq Capsule.er, 10 MEQ PO DAILY PRN for WHEN TAKING FUROSEMIDE, (Reported) Entered as Reported by: DEVON HILL on 09/07/19 154 Review of Systems Review of Systems Constitutional: No chills, No diaphoresis EENTM: No ear discharge, No hearing loss Respiratory: No cough, No dyspnea on exertion Cardiovascular: No chest pain, No palpitations Gastrointestinal: No abdominal pain, No nausea, No vomiting Genitourinary: No discharge, No dysuria Musculoskeletal: No back pain, No joint pain All Other Systems Reviewed Negative Unless Noted: Yes Past Eohwkqt-Ejfzrv-Yjgaxi Hx Patient Social History Tobacco Use?: No Use of E-Cig and/or Vaping dev: No Substance use?: No Alcohol Use?: No Pt feels they are or have been: No Immunizations Up To Date Influenza Vaccine Up-to-Date: Yes; Up-to-Date Seasonal Allergies Seasonal Allergies: Yes Past Medical History Surgeries: Yes ("MESH IN RECTAL AREA" PER OLD RECORDS; CARDIAC CATH IN [place]) Adenoidectomy, Appendectomy, Cardiac, Gallbladder, Hysterectomy, Oophorectomy, Pacemaker, Rectal, Tonsillectomy Respiratory: Yes Asthma, COPD Cardiac: Yes (SSS,PACEMAKER (MEDTR); CHF; NON-ISCHEMIC CARDIOMYOPATHY;CAD-NO INTERVENTION) Atrial Fibrillation, Cardiomyopathy, Coronary Artery Disease, Heart Attack, High Cholesterol, Hypertension, Irregular Heartbeat, Syncope Neurological: Yes (STROKE WITH RIGHT SIDE WEAKNESS, PER PT) 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 oz. kg; 33.00 BMI Method: General Appearance: WD/WN, Mild Distress Eyes: Bilateral Eye Normal Inspection, Bilateral Eye PERRL, Bilateral Eye EOMI HEENT: PERRL/EOMI, TMs Normal, Normal ENT Inspection, Pharynx Normal, Moist Mucous Membranes Neck: Full Range of Motion, Normal Inspection Respiratory: Lungs Clear, Normal Breath Sounds, No Accessory Muscle Use, No Respiratory Distress Cardiovascular: Regular Rate, Rhythm, No Edema Extremity: Normal Capillary Refill, Other (Ecchymoses on the right forearm and right lower extremity mild) Neurologic/Psychiatric: Alert, Oriented x3 Progress/Results/Core Measures Suspected Sepsis SIRS Temperature: Pulse: 96 Respiratory Rate: 22 Blood Pressure 144 /80 Mean: 101 Results/Orders My Orders Orders - EFRAIN URENA Hydrocodone/Apap 5/325 Tablet (Lortab 5 (12/15/21 16:00) Methylprednisolone Sod Succ (Solu-Medrol (12/15/21 16:00) Orphenadrine Inj (Ed Only) (Norflex Inje (12/15/21 16:00) Vital Signs/I&O 12/15/21 15:28 Temp 36.8 Pulse 96 Resp 22 B/P (MAP) 144/80 (101) Pulse Ox 98 O2 Delivery Room Air Capillary Refill : Less Than 3 Seconds Blood Pressure Mean: 101 Progress Note : Time: 15:51 Progress Note Muscle relaxants, steroids and some hydrocodone for breakthrough pain. Strongly encouraged her to follow-up with a primary care doctor. Encouraged her that we would help her today with her acute pain but the ER would not make a habit of helping her with her chronic pain management. Aseptic vital signs. Departure Impression Primary Impression: Rheumatoid arthritis flare Additional Impressions: Muscle spasm Right forearm injury Qualified Codes: S59.911A - Unspecified injury of right forearm, initial encounter History of fall Disposition: HOME, SELF-CARE Condition: Stable Departure-Patient Inst. Decision time for Depature: 15:52 Referrals: EDY GUTIÉRREZ MD (PCP/Family) Primary Care Physician ENZO AVILA MD Patient Instructions: LOCAL PHYSICIAN LIST, Rheumatoid Arthritis (DC) Add. Discharge Instructions: Drink plenty of fluids. Tylenol 1000 mg every 8 hours needed for pain. Topical creams such as Voltaren, IcyHot or capsaicin oil as necessary for pain. If you are having muscle spasms use the cyclobenzaprine 1 tablet every 8 hours as needed. If it causes you to be groggy then cut the tablet in half next time. If you are having severe, intractable pain then you can use hydrocodone 1 tablet every 6 hours as needed. Do not mix hydrocodone with cyclobenzaprine as it may cause unsafe levels of drowsiness and increase your risk of falls. Hydrocodone will cause constipation and you should use MiraLAX or similar laxatives to stay regular. Medrol Dosepak take as prescribed. Establish care with a new primary care provider at your earliest convenience for continued management of your chronic pain. Follow-up with Dr. Avila as per your plan for your right forearm. All discharge instructions reviewed with patient and/or family. Voiced understanding. Scripts Methylprednisolone (Methylprednisolone Dose Pack) 4 Mg Tab.ds.pk 4 MG PO UD for 6 Days, #21 PKG 0 Refills PER DOSE PACK INSTRUCTIONS Prov: EFRAIN URENA 12/15/21 Hydrocodone/Acetaminophen (Hydrocodone-Acetamin 5-325 mg) 5 Mg-325 Mg Tablet 1 TAB PO Q6H PRN for PAIN-MODERATE (5-7), #15 TAB 0 Refills Prov: EFRAIN URENA 12/15/21 Cyclobenzaprine HCl (Cyclobenzaprine HCl) 10 Mg Tablet 10 MG PO Q8H PRN for SPASMS, #15 TAB 0 Refills Prov: EFRAIN URENA 12/15/21 EFRAIN URENA Dec 15, 2021 15:53
[2021-12-15] MEDS ORDERED: METH4TAB10 PO (15:56)
[2021-12-15] MEDS ORDERED: CYCL10TA25 PO (15:56)
[2021-12-15] MEDS ORDERED: ACHD5005 PO (15:56)
[2021-12-15] MEDS ORDERED: ORPHENADRINE 60 MG/2 ML (NORFLEX) AMP (ED ONLY) IM ONE (16:00)
[2021-12-15] MEDS ORDERED: HYDROcodone/APAP 5 MG/325 MG (LORTAB) TAB PO ONE (16:00)
[2021-12-15] MEDS ORDERED: methylPREDNISolone 125 MG (Solu-MEDROL) VIAL IM ONE (16:00)
== END 2021-12-15 16:27 | disposition home or self-care (01) ==
LOC: EDUNIT# 15:13 → ER 15:16
DX: S50.11XA Contusion of right forearm, initial encounter (principal); S80.11XA Contusion of right lower leg, initial encounter; M06.9 Rheumatoid arthritis, unspecified; M62.838 Other muscle spasm; Z91.81 History of falling; W19.XXXA Unspecified fall, initial encounter

== ENCOUNTER 2022-04-06 14:24 | Emergency (ER) | payer MEDICARE, MEDICAID ==
[~2022-04-06] VITALS: Ht 152.4 cm; Wt 79.5 kg
[~2022-04-06 14:24] MED LIST changes: +ACHD5005 PO; +CYCL10TA25 PO; +METH4TAB10 PO; +POTA-177 PO; -POTA10TA37 PO
[2022-04-06] MEDS ORDERED: RT-ALBUTEROL/IPRATROPIUM 3 ML (DUONEB) VIAL ONE (14:28)
[2022-04-06 14:43] LABS: ABG BASE EXCESS -2.7 MMOL/L (-2.5-2.5); ABG OXYGEN SATURATION 98 % (94-100); ABG PCO2 19 MMHG (35-45); ABG PO2 129 MMHG (79-93); ABG TCO2 19.5 MMOL/L (21.0-31.0); ALLENS TEST YES-POS
[2022-04-06 14:44] LABS: INSPIRED O2 5 L; PATIENT TEMP 98.5; VENTILATOR NO
[2022-04-06 14:45] LABS: BASOPHILS % (AUTO) 0 % (0-10); EOSINOPHILS # (AUTO) 0.1 10^3/uL (0.0-0.3); EOSINOPHILS % (AUTO) 2 % (0-10); HEMATOCRIT 42 % (35-52); HEMOGLOBIN 14.5 g/dL (11.5-16.0); LYMPHOCYTES # (AUTO) 1.9 10^3/uL (1.0-4.0); LYMPHOCYTES % (AUTO) 24 % (12-44); MEAN CORPUSCULAR HEMOGLOBIN 31 pg (25-34); MEAN CORPUSCULAR HGB CONC 35 g/dL (32-36); MEAN CORPUSCULAR VOLUME 90 fL (80-99); MEAN PLATELET VOLUME 10.4 fL (9.0-12.2); MONOCYTES # (AUTO) 0.5 10^3/uL (0.0-1.0); MONOCYTES % (AUTO) 7 % (0-12); NEUTROPHILS # (AUTO) 5.4 10^3/uL (1.8-7.8); NEUTROPHILS % (AUTO) 67 % (42-75); PLATELET COUNT 300 10^3/uL (130-400)
[2022-04-06] MEDS ORDERED: RT-ALBUTEROL/IPRATROPIUM 3 ML (DUONEB) VIAL INH ONE (14:45)
[2022-04-06] MEDS ORDERED: methylPREDNISolone 125 MG (Solu-MEDROL) VIAL IVP ONE (14:45)
[2022-04-06] MEDS ORDERED: LORazepam INJ 2 MG/ML (ATIVAN) VIAL IVP PRN (14:45)
[2022-04-06] MEDS ORDERED: NITROGLYCERIN 0.4 MG SL TABS BTL 25'S SL ONE (14:45)
--- NOTE | 2022-04-06 14:45 | ED Chest Pain ---
General Chief Complaint: Chest Pain Stated Complaint: CP / SOA Source: patient Exam Limitations: no limitations History of Present Illness Date Seen by Provider: Apr 06, 2022 Time Seen by Provider: 14:43 Initial Comments She does not wear oxygen at home. [facility] her apartmentWith reports of sudden onset of chest pain about 1 to 2 hours ago. She also shortness of breath. She has COPD. 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 LIGHT ASSEMBLER: No Associated Symptoms: denies symptoms Allergies and Home Medications Allergies Coded Allergies: Sulfa (Sulfonamide Antibiotics) (Verified Allergy, Unknown, 04/26/19) morphine (Verified Allergy, Unknown, 04/26/19) Patient Home Medication List Home Medication List Reviewed: Yes Acetaminophen (Tylenol 8 Hour) 650 Mg Tablet.er, 1,300 MG PO Q4H, (Reported) Entered as Reported by: DEVON HILL on 01/16/20 1011 Calcium Carbonate (Calcium) 600 Mg Tablet, 600 MG PO DAILY, (Reported) Entered as Reported by: DEVON HILL on 09/21/19 1546 Celecoxib (Celebrex) 200 Mg Capsule, 200 MG PO BID, (Reported) Entered as Reported by: DEVON HILL on 01/16/20 1007 Cholecalciferol (Vitamin D3) (Vitamin D3) 125 Mcg Tablet, 125 MCG PO DAILY, (Reported) Entered as Reported by: DEVON HILL on 09/21/19 1546 Cyclobenzaprine HCl (Cyclobenzaprine HCl) 10 Mg Tablet, 10 MG PO Q8H PRN for SPASMS Prescribed by: EFRAIN URENA on 12/15/21 1556 Digoxin (Lanoxin) 125 Mcg Tablet, 125 MCG PO DAILY, (Reported) Entered as Reported by: DEVON HILL on 09/21/19 1546 Fludrocortisone Acetate (Fludrocortisone Acetate) 0.1 Mg Tab, 0.1 MG PO DAILY Prescribed by: ATIF MARTEL on 01/17/20 1110 Fluticasone Propionate (Fluticasone Propionate) 16 Gm [place].susp, 2 SPRAYS NS DAILY PRN for ALLERGIES, (Reported) Entered as Reported by: MERCED PETERS on 08/15/19 0840 Folic Acid/Mv,Fe,Other Min (One Daily For Women Tablet) 1 Each Tablet, 1 EACH PO DAILY, (Reported) Entered as Reported by: DEVON HILL on 09/07/19 1540 Furosemide (Furosemide) 20 Mg Tablet, 20 MG PO DAILY PRN for FLUID RETENTION, (Reported) Entered as Reported by: DEVON HILL on 01/16/20 1011 Hydrocodone/Acetaminophen (Hydrocodone-Acetamin 5-325 mg) 5 Mg-325 Mg Tablet, 1 TAB PO Q6H PRN for PAIN-MODERATE (5-7) Prescribed by: EFRAIN URENA on 12/15/21 1557 Magnesium Oxide (Magnesium) 400 Mg Tablet, 400 MG PO DAILY, (Reported) Entered as Reported by: DEVON HILL on 09/21/19 1546 Methylprednisolone (Methylprednisolone Dose Pack) 4 Mg Tab.ds.pk, 4 MG PO UD Prescribed by: EFRAIN URENA on 12/15/21 1556 Metoprolol Tartrate (Metoprolol Tartrate) 25 Mg Tablet, 12.5 MG PO 1200,2200, (Reported) Entered as Reported by: MADDISON GALLOWAY on 04/26/19 1805 Paroxetine HCl (Paroxetine HCl) 40 Mg Tablet, 40 MG PO HS, (Reported) Entered as Reported by: DEVON HILL on 01/16/20 1007 Polyethylene Glycol 3350 (Miralax) 17 Gm Powd.pack, 17 GM PO DAILY, (Reported) Entered as Reported by: MERCED PETERS on 04/27/19 0857 Potassium Chloride (Potassium Chloride) 10 Meq Capsule.er, 10 MEQ PO DAILY PRN for WHEN TAKING FUROSEMIDE, (Reported) Entered as Reported by: DEVON HILL on 09/07/19 1546 Review of Systems Review of Systems Constitutional: see HPI EENTM: No Symptoms Reported Respiratory: See HPI; Denies Cough; Shortness of Air Cardiovascular: See HPI, Chest Pain Gastrointestinal: No Symptoms Reported Genitourinary: No Symptoms Reported Musculoskeletal: no symptoms reported Skin: no symptoms reported Psychiatric/Neurological: No Symptoms Reported Endocrine: No Symptoms Reported Hematologic/Lymphatic: No Symptoms Reported Past Sotjzjw-Klwsev-Bhjohc Hx Seasonal Allergies Seasonal Allergies: Yes Past Medical History Surgeries: Yes ("MESH IN RECTAL AREA" PER OLD RECORDS; CARDIAC CATH IN [place]) Adenoidectomy, Appendectomy, Cardiac, Gallbladder, Hysterectomy, Oophorectomy, Pacemaker, Rectal, Tonsillectomy Respiratory: Yes Asthma, COPD Cardiac: Yes (SSS,PACEMAKER (MEDTR); CHF; NON-ISCHEMIC CARDIOMYOPATHY;CAD-NO INTERVENTION) Atrial Fibrillation, Cardiomyopathy, Coronary Artery Disease, Heart Attack, High Cholesterol, Hypertension, Irregular Heartbeat, Syncope Neurological: Yes (STROKE WITH RIGHT SIDE WEAKNESS, PER PT) Stroke 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: Hysterectomy, Menopausal Genitourinary: No Gastrointestinal: Yes Gastroesophageal Reflux Musculoskeletal: Yes (RIGHT SHOULDER PAIN/ROTATOR CUFF PROBLEMS) Arthritis Endocrine: Yes Hypothyroidsim HEENT: No Cancer: No Psychosocial: Yes Anxiety, Bipolar, Depression Integumentary: No Blood Disorders: No Family Medical History No Pertinent Family Hx Physical Exam Vital Signs Vital Signs - First Documented 04/06/22 04/06/22 14:30 14:35 Temp 36.6 Pulse 107 Resp 26 B/P (MAP) 161/107 (125) Pulse Ox 99 O2 Delivery Nasal Cannula O2 Flow Rate 2.00 Capillary Refill : Height, Weight, BMI Height: '" Weight: lbs. oz. kg; 33.00 BMI Method: General Appearance: WD/WN, Anxious (Anxious, hyperventilating. Hypertensive at 130s over 100. Heart rate 100 atrial fibrillation. Oxygen 99% room air. There is some upper airway inspiratory wheeze but no lower airway wheezing.) HEENT: PERRL/EOMI, TMs Normal Neck: Full Range of Motion, Normal Inspection Respiratory: No Accessory Muscle Use, No Respiratory Distress Cardiovascular: Regular Rate, Rhythm, Normal Peripheral Pulses Gastrointestinal: Non Tender, Soft Neurologic/Psychiatric: Alert, Oriented x3 Skin: Normal Color, Warm/Dry Progress/Results/Core Measures Results/Orders Lab Results Laboratory Tests Test 04/06/22 14:30 04/06/22 16:47 Range/Units White Blood Count 8.0 4.3-11.0 10^3/uL Red Blood Count 4.67 3.80-5.11 10^6/uL Hemoglobin 14.5 11.5-16.0 g/dL Hematocrit 42 35-52 % Mean Corpuscular Volume 90 80-99 fL Mean Corpuscular Hemoglobin 31 25-34 pg Mean Corpuscular Hemoglobin Concent 35 32-36 g/dL Red Cell Distribution Width 12.3 10.0-14.5 % Platelet Count 300 130-400 10^3/uL Mean Platelet Volume 10.4 9.0-12.2 fL Immature Granulocyte % (Auto) 0 % Neutrophils (%) (Auto) 67 42-75 % Lymphocytes (%) (Auto) 24 12-44 % Monocytes (%) (Auto) 7 0-12 % Eosinophils (%) (Auto) 2 0-10 % Basophils (%) (Auto) 0 0-10 % Neutrophils # (Auto) 5.4 1.8-7.8 10^3/uL Lymphocytes # (Auto) 1.9 1.0-4.0 10^3/uL Monocytes # (Auto) 0.5 0.0-1.0 10^3/uL Eosinophils # (Auto) 0.1 0.0-0.3 10^3/uL Basophils # (Auto) 0.0 0.0-0.1 10^3/uL Immature Granulocyte # (Auto) 0.0 0.0-0.1 10^3/uL Prothrombin Time 13.0 12.2-14.7 SEC INR Comment 0.9 0.8-1.4 Activated Partial Thromboplast Time 40 H 24-35 SEC Blood Gas Puncture Site R RADIAL Blood Gas Patient Temperature 98.5 Arterial Blood pH 7.60 H 7.37-7.43 Arterial Blood Partial Pressure CO2 19 *L 35-45 MMHG Arterial Blood Partial Pressure O2 129 H 79-93 MMHG Arterial Blood HCO3 19 L 23-27 MMOL/L Arterial Blood Total CO2 19.5 L 21.0-31.0 MMOL/L Arterial Blood Oxygen Saturation 98 94-100 % Arterial Blood Base Excess -2.7 L -2.5-2.5 MMOL/L Javier Test YES-POS Blood Gas Ventilator Setting NO Blood Gas Inspired Oxygen 5 L Sodium Level 144 135-145 MMOL/L Potassium Level 4.1 3.6-5.0 MMOL/L Chloride Level 106 98-107 MMOL/L Carbon Dioxide Level 22 21-32 MMOL/L Anion Gap 16 H 5-14 MMOL/L Blood Urea Nitrogen 14 7-18 MG/DL Creatinine 1.06 0.60-1.30 MG/DL Estimat Glomerular Filtration Rate 56 BUN/Creatinine Ratio 13 Glucose Level 114 H 70-105 MG/DL Calcium Level 10.3 H 8.5-10.1 MG/DL Corrected Calcium 8.5-10.1 MG/DL Magnesium Level 1.8 1.6-2.4 MG/DL Total Bilirubin 1.1 H 0.1-1.0 MG/DL Aspartate Amino Transf (AST/SGOT) 24 5-34 U/L Alanine Aminotransferase (ALT/SGPT) 16 0-55 U/L Alkaline Phosphatase 121 40-136 U/L Myoglobin 73.5 10.0-92.0 NG/ML Troponin I < 0.028 < 0.028 <0.028 NG/ML B-Type Natriuretic Peptide 132.2 H <100.0 PG/ML Total Protein 7.9 6.4-8.2 GM/DL Albumin 4.6 H 3.2-4.5 GM/DL My Orders Orders - JAIRO GALE APRN Cbc With Automated Diff (04/06/22 14:37) Magnesium (04/06/22 14:37) Chest 1 View, Ap/Pa Only (04/06/22 14:37) Ekg Tracing (04/06/22 14:37) Comprehensive Metabolic Panel (04/06/22 14:37) Myoglobin Serum (04/06/22 14:37) Protime With Inr (04/06/22 14:37) Partial Thromboplastin Time (04/06/22 14:37) O2 (04/06/22 14:37) Monitor-Rhythm Ecg Trace Only (04/06/22 14:37) Lipid Panel (04/07/22 06:00) Ed Iv/Invasive Line Start (04/06/22 14:37) Troponin I Corine (04/06/22 14:37) Albuterol/Ipra Inhalation Soln (Duoneb I (04/06/22 14:45) Methylprednisolone Sod Succ (Solu-Medrol (04/06/22 14:45) Lorazepam Injection (Ativan Injection) (04/06/22 14:45) Nitroglycerin 0.4 Mg Btl 25's (Nitrostat (04/06/22 14:45) Svn Small Volume Nebulizer (04/06/22 14:37) Arterial Blood Gas (04/06/22 14:37) Bnp [place] (04/06/22 14:50) Troponin I [place] (04/06/22 15:30) Forearm, Left, 2 Views (04/06/22 15:35) Medications Given in ED Current Medications Medications Dose Ordered Sig/Nicole Route Start Time Stop Time Status Last Admin Dose Admin Albuterol/ Ipratropium 3 ml ONCE ONCE INH 04/06/22 14:45 04/06/22 14:46 DC 04/06/22 14:30 3 ML Lorazepam 0.5 mg ONCE PRN IVP 04/06/22 14:45 04/06/22 14:45 0.5 MG Methylprednisolone Sodium Succinate 125 mg ONCE ONCE IVP 04/06/22 14:45 04/06/22 14:46 DC 04/06/22 14:45 125 MG Nitroglycerin 1 BOTTLE ONCE ONCE SL 04/06/22 14:45 04/06/22 14:46 DC 04/06/22 14:45 0.4 MG Vital Signs/I&O 04/06/22 04/06/22 14:30 14:35 Temp 36.6 Pulse 107 Resp 26 B/P (MAP) 161/107 (125) Pulse Ox 99 99 O2 Delivery Nasal Cannula Room Air O2 Flow Rate 2.00 Departure Communication (Admissions) NAME: J[facility] REC#: [id number] PT STATUS: REG ER : 1950 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 The lungs are clear without consolidation, pleural effusion, or pneumothorax. The osseous structures are intact. A right-sided cardiac device is present. IMPRESSION: 1. No acute radiographic abnormality in the chest. Dictated on workstation # [id number] Dict: 04/06/22 1510 Trans: 04/06/22 1512 [id number] Interpreted by: JAKE SANCHEZ DO Electronically signed by: Impression Primary Impression: Anxiety Additional Impressions: Atrial fibrillation COPD (chronic obstructive pulmonary disease) Disposition: 01 HOME, SELF-CARE Condition: Stable Departure-Patient Inst. Decision time for Depature: 17:26 Referrals: EDY GUTIÉRREZ MD (PCP/Family) Primary Care Physician Patient Instructions: Anxiety, Adult ED, COPD Exacerbation, Adult ED Add. Discharge Instructions: 1. Return to ER for any concerns. Follow-up with your doctor next week. All discharge instructions reviewed with patient and/or family. Voiced understanding. Scripts Prednisone (Prednisone) 20 Mg Tab 40 MG PO DAILY, #6 TAB 0 Refills Prov: JAIRO GALE APRN 04/06/22 Cephalexin (Cephalexin) 500 Mg Tablet 500 MG PO TID, #14 TAB Prov: JAIRO GALE APRN 04/06/22 JAIRO GALE APRN Apr 06, 2022 14:45
[2022-04-06 14:54] LABS: ALBUMIN 4.6 GM/DL (3.2-4.5); CHLORIDE 106 MMOL/L (98-107); INR 0.9 (0.8-1.4); POTASSIUM 4.1 MMOL/L (3.6-5.0); SODIUM 144 MMOL/L (135-145)
[2022-04-06 14:55] LABS: CALCIUM 10.3 MG/DL (8.5-10.1)
[2022-04-06 14:56] LABS: GLUCOSE 114 MG/DL (70-105)
[2022-04-06 14:57] LABS: TOTAL PROTEIN 7.9 GM/DL (6.4-8.2)
[2022-04-06 14:58] LABS: BILIRUBIN,TOTAL 1.1 MG/DL (0.1-1.0); CARBON DIOXIDE 22 MMOL/L (21-32)
[2022-04-06 15:00] LABS: ALKALINE PHOSPHATASE 121 U/L (40-136); CREATININE SERUM 1.06 MG/DL (0.60-1.30); GFR ESTIMATED 56
[2022-04-06 15:01] LABS: BUN/CREATININE RATIO 13
[2022-04-06 15:03] LABS: ALANINE AMINOTRANSFERASE 16 U/L (0-55); MAGNESIUM 1.8 MG/DL (1.6-2.4)
--- NOTE | 2022-04-06 15:12 | Diagnostic Imaging Report ---
EXAMINATION: Chest 1 view HISTORY: Chest pain COMPARISON: 01/15/2020 FINDINGS: Heart size and pulmonary vasculature are normal. The lungs are clear without consolidation, pleural effusion, or pneumothorax. The osseous structures are intact. A right-sided cardiac device is present. IMPRESSION: 1. No acute radiographic abnormality in the chest. Dictated by: Dictated on workstation # [id number]
--- NOTE | 2022-04-06 16:01 | Diagnostic Imaging Report ---
EXAMINATION: Left forearm radiograph EXAM DATE: 04/06/2022 3:58 PM COMPARISON: None available. HISTORY: Forearm pain after fall TECHNIQUE: 2 views FINDINGS: There is no acute fracture, dislocation, or destructive osseous process. The joint spaces are normal. The soft tissues are normal. IMPRESSION: 1. No acute osseous abnormality. Dictated by: Dictated on workstation # [id number]
[2022-04-06] MEDS ORDERED: CEPH500T PO ×2 (17:26→17:41)
[2022-04-06] MEDS ORDERED: PRD20T PO ×2 (17:26→17:41)
[2022-04-06] MEDS ORDERED: CEPHALEXIN 250 MG (KEFLEX) CAP PO SCH (17:45)
[2022-04-06 17:55] VITALS: BP 131/78
== END 2022-04-06 17:55 | disposition home or self-care (01) ==
LOC: EDUNIT# 14:24 → ER 14:25
DX: F41.9 Anxiety disorder, unspecified (principal); I48.91 Unspecified atrial fibrillation; J44.9 Chronic obstructive pulmonary disease, unspecified; Z95.0 Presence of cardiac pacemaker; Z98.61 Coronary angioplasty status; Z28.311 Partially vaccinated for COVID-19
CPT/HCPCS: 36415; 71045; 73090; 80053; 82805; 83735; 83874; 83880; 84484; 85025; 85610; 85730; 93005; 93041; 96374; 96375

== ENCOUNTER 2022-04-22 13:38 | Emergency (ER) | payer MEDICARE, MEDICAID ==
[~2022-04-22] VITALS: Ht 152 cm; Wt 80.0 kg
[~2022-04-22 13:38] MED LIST changes: +CEPH500T PO; +PRD20T PO
[2022-04-22 14:12] LABS: ALBUMIN 4.3 GM/DL (3.2-4.5)
[2022-04-22 14:13] LABS: CHLORIDE 103 MMOL/L (98-107); POTASSIUM 3.6 MMOL/L (3.6-5.0); SODIUM 139 MMOL/L (135-145)
[2022-04-22 14:14] LABS: CALCIUM 9.6 MG/DL (8.5-10.1)
[2022-04-22 14:15] LABS: GLUCOSE 141 MG/DL (70-105); TOTAL PROTEIN 7.4 GM/DL (6.4-8.2)
[2022-04-22] MEDS ORDERED: RT-ALBUTEROL/IPRATROPIUM 3 ML (DUONEB) VIAL INH ONE (14:15)
[2022-04-22] MEDS ORDERED: methylPREDNISolone 125 MG (Solu-MEDROL) VIAL IM ONE (14:15)
[2022-04-22 14:16] LABS: CARBON DIOXIDE 27 MMOL/L (21-32)
--- NOTE | 2022-04-22 14:16 | ED Respiratory ---
General Chief Complaint: Respiratory Problems Stated Complaint: SOA/COUGH Nursing Triage Note: Patient states she awoke short of breath this moring. She advised she called her pcp and they advised there was nothing they could do at the office. Patient state hx of a fib. Source: patient Exam Limitations: no limitations History of Present Illness Date Seen by Provider: Apr 22, 2022 Time Seen by Provider: 13:40 Initial Comments 71-year-old female presents to the emergency department via ambulance for shortness of breath. She states symptoms started couple of weeks ago. She was seen in our emergency department at 1 point and ultimately discharged home with steroids, antibiotics. These were for couple of days but since she has stopped taking them and her symptoms have progressively worsened. They have been severe over the last couple of days per her report. She does oxygen at home, 2 L via nasal cannula chronically. She is also supposed to be on a CPAP machine at night but she has not had one for upwards of a year and they state they have "been getting the run around." I am unable to obtain this and they are quite frustrated in that regard. She does endorse tightness across her anterior chest, midsternal region without radiation. Aggravated when her shortness of breath gets worse with exertion. No alleviating factors she denies any fevers or chills. She has not had a productive cough, worsening over the last couple of days. No unilateral lower extremity pain, swelling or history of DVT. She does have a history of atrial fibrillation, congestive heart failure. She has a watchman and pacemaker. Her friend at bedside tells me that she got so short of breath. She got dizzy and fell down. She has no apparent injuries from the fall. Allergies and Home Medications Allergies Coded Allergies: Sulfa (Sulfonamide Antibiotics) (Verified Allergy, Unknown, 04/26/19) morphine (Verified Allergy, Unknown, 04/26/19) Patient Home Medication List Home Medication List Reviewed: Yes Acetaminophen (Tylenol 8 Hour) 650 Mg Tablet.er, 1,300 MG PO Q4H, (Reported) Entered as Reported by: DEVON HILL on 01/16/20 1011 Calcium Carbonate (Calcium) 600 Mg Tablet, 600 MG PO DAILY, (Reported) Entered as Reported by: DEVON HILL on 09/21/19 1546 Celecoxib (Celebrex) 200 Mg Capsule, 200 MG PO BID, (Reported) Entered as Reported by: DEVON HILL on 01/16/20 1007 Cephalexin (Cephalexin) 500 Mg Tablet, 500 MG PO TID Prescribed by: JAIRO GALE on 04/06/22 174 Cholecalciferol (Vitamin D3) (Vitamin D3) 125 Mcg Tablet, 125 MCG PO DAILY, (Reported) Entered as Reported by: DEVON HILL on 09/21/19 1546 Cyclobenzaprine HCl (Cyclobenzaprine HCl) 10 Mg Tablet, 10 MG PO Q8H PRN for SPASMS Prescribed by: EFRAIN URENA on 12/15/21 155 Digoxin (Lanoxin) 125 Mcg Tablet, 125 MCG PO DAILY, (Reported) Entered as Reported by: DEVON HILL on 09/21/19 154 Fludrocortisone Acetate (Fludrocortisone Acetate) 0.1 Mg Tab, 0.1 MG PO DAILY Prescribed by: ATIF MARTEL on 01/17/20 1110 Fluticasone Propionate (Fluticasone Propionate) 16 Gm [place].susp, 2 SPRAYS NS DAILY PRN for ALLERGIES, (Reported) Entered as Reported by: MERCED PETERS on 08/15/19 0840 Folic Acid/Mv,Fe,Other Min (One Daily For Women Tablet) 1 Each Tablet, 1 EACH PO DAILY, (Reported) Entered as Reported by: DEVON HILL on 09/07/19 1540 Furosemide (Furosemide) 20 Mg Tablet, 20 MG PO DAILY PRN for FLUID RETENTION, (Reported) Entered as Reported by: DEVON HILL on 01/16/20 1011 Hydrocodone/Acetaminophen (Hydrocodone-Acetamin 5-325 mg) 5 Mg-325 Mg Tablet, 1 TAB PO Q6H PRN for PAIN-MODERATE (5-7) Prescribed by: EFRAIN URENA on 12/15/21 1557 Magnesium Oxide (Magnesium) 400 Mg Tablet, 400 MG PO DAILY, (Reported) Entered as Reported by: DEVON HILL on 09/21/19 154 Methylprednisolone (Methylprednisolone Dose Pack) 4 Mg Tab.ds.pk, 4 MG PO UD Prescribed by: EFRAIN URENA on 12/15/21 1556 Metoprolol Tartrate (Metoprolol Tartrate) 25 Mg Tablet, 12.5 MG PO 1200,2200, (Reported) Entered as Reported by: MADDISON GALLOWAY on 04/26/19 1805 Paroxetine HCl (Paroxetine HCl) 40 Mg Tablet, 40 MG PO HS, (Reported) Entered as Reported by: DEVON HILL on 01/16/20 1007 Polyethylene Glycol 3350 (Miralax) 17 Gm Powd.pack, 17 GM PO DAILY, (Reported) Entered as Reported by: MERCED PETERS on 04/27/19 0857 Potassium Chloride (Potassium Chloride) 10 Meq Capsule.er, 10 MEQ PO DAILY PRN for WHEN TAKING FUROSEMIDE, (Reported) Entered as Reported by: DEVON HILL on 09/07/19 1546 Prednisone (Prednisone) 20 Mg Tab, 40 MG PO DAILY Prescribed by: JAIRO GALE on 04/06/22 1741 Review of Systems Review of Systems Constitutional: weakness EENTM: no symptoms reported Respiratory: cough, dyspnea on exertion, short of breath Cardiovascular: chest pain Gastrointestinal: no symptoms reported Genitourinary: no symptoms reported Musculoskeletal: no symptoms reported Skin: no symptoms reported Psychiatric/Neurological: No Symptoms Reported Hematologic/Lymphatic: No Symptoms Reported Immunological/Allergic: no symptoms reported Past Yiqphyg-Ocdrqe-Gcjevn Hx Patient Social History Tobacco Use?: No Substance use?: No Alcohol Use?: No Immunizations Up To Date First/Initial COVID19 Vaccinat: january 2022 COVID19 Vaccine Carroting Machine Offbearer: Xiomara Seasonal Allergies Seasonal Allergies: Yes Past Medical History Surgery/Hospitalization HX: copd, RA, CFH Surgeries: Yes ("MESH IN RECTAL AREA" PER OLD RECORDS; CARDIAC CATH IN [place]) Adenoidectomy, Appendectomy, Cardiac, Gallbladder, Hysterectomy, Oophorectomy, Pacemaker, Rectal, Tonsillectomy Respiratory: Yes Asthma, COPD Cardiac: Yes (SSS,PACEMAKER (MEDTR); CHF; NON-ISCHEMIC CARDIOMYOPATHY;CAD-NO INTERVENTION) Atrial Fibrillation, Cardiomyopathy, Coronary Artery Disease, Heart Attack, High Cholesterol, Hypertension, Irregular Heartbeat, Syncope Neurological: Yes (STROKE WITH RIGHT SIDE WEAKNESS, PER PT) Stroke 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 oz. kg; 34.00 BMI Method: General Appearance: WD/WN, no apparent distress HEENT: PERRL/EOMI, normal ENT inspection, TMs normal, pharynx normal Neck: non-tender, full range of motion, supple, normal inspection Respiratory: chest non-tender, other (Moderate respiratory distress with hyperventilation, use accessory muscles. Decreased breath sounds bilaterally, tight.) Cardiovascular: regular rate, rhythm, no edema, no gallop, no JVD, no murmur Gastrointestinal: normal bowel sounds, non tender, soft, no organomegaly, no pulsatile mass Extremities: normal range of motion, non-tender, normal inspection, no pedal edema, no calf tenderness, normal capillary refill Neurologic/Psychiatric: alert, normal mood/affect, oriented x 3 Skin: normal color, warm/dry Progress/Results/Core Measures Suspected Sepsis SIRS Temperature: Pulse: 80 Respiratory Rate: 24 Laboratory Tests 04/22/22 13:45: White Blood Count 8.8 Blood Pressure 138 /116 Mean: 123 Laboratory Tests 04/22/22 13:45: Creatinine 1.08, Platelet Count 243, Total Bilirubin 1.4H Results/Orders Lab Results Laboratory Tests Test 04/22/22 13:45 04/22/22 14:36 Range/Units White Blood Count 8.8 4.3-11.0 10^3/uL Red Blood Count 4.63 3.80-5.11 10^6/uL Hemoglobin 14.5 11.5-16.0 g/dL Hematocrit 42 35-52 % Mean Corpuscular Volume 91 80-99 fL Mean Corpuscular Hemoglobin 31 25-34 pg Mean Corpuscular Hemoglobin Concent 34 32-36 g/dL Red Cell Distribution Width 12.4 10.0-14.5 % Platelet Count 243 130-400 10^3/uL Mean Platelet Volume 10.3 9.0-12.2 fL Immature Granulocyte % (Auto) 0 % Neutrophils (%) (Auto) 61 42-75 % Lymphocytes (%) (Auto) 28 12-44 % Monocytes (%) (Auto) 10 0-12 % Eosinophils (%) (Auto) 1 0-10 % Basophils (%) (Auto) 0 0-10 % Neutrophils # (Auto) 5.3 1.8-7.8 10^3/uL Lymphocytes # (Auto) 2.5 1.0-4.0 10^3/uL Monocytes # (Auto) 0.8 0.0-1.0 10^3/uL Eosinophils # (Auto) 0.1 0.0-0.3 10^3/uL Basophils # (Auto) 0.0 0.0-0.1 10^3/uL Immature Granulocyte # (Auto) 0.0 0.0-0.1 10^3/uL Sodium Level 139 135-145 MMOL/L Potassium Level 3.6 3.6-5.0 MMOL/L Chloride Level 103 98-107 MMOL/L Carbon Dioxide Level 27 21-32 MMOL/L Anion Gap 9 5-14 MMOL/L Blood Urea Nitrogen 19 H 7-18 MG/DL Creatinine 1.08 0.60-1.30 MG/DL Estimat Glomerular Filtration Rate 55 BUN/Creatinine Ratio 18 Glucose Level 141 H 70-105 MG/DL Calcium Level 9.6 8.5-10.1 MG/DL Corrected Calcium 9.4 8.5-10.1 MG/DL Total Bilirubin 1.4 H 0.1-1.0 MG/DL Aspartate Amino Transf (AST/SGOT) 24 5-34 U/L Alanine Aminotransferase (ALT/SGPT) 16 0-55 U/L Alkaline Phosphatase 106 40-136 U/L Troponin I < 0.028 <0.028 NG/ML C-Reactive Protein High Sensitivity 0.11 0.00-0.50 MG/DL B-Type Natriuretic Peptide 127.5 H <100.0 PG/ML Total Protein 7.4 6.4-8.2 GM/DL Albumin 4.3 3.2-4.5 GM/DL SARS-CoV-2 RNA (RT-PCR) Not Detected Not Detecte My Orders Orders - CATALINA CORBIN DO Ekg Tracing (04/22/22 13:45) Troponin I [place] (04/22/22 14:02) Bnp [place] (04/22/22 14:02) Comprehensive Metabolic Panel (04/22/22 14:02) Cbc With Automated Diff (04/22/22 14:02) Chest 1 View, Ap/Pa Only (04/22/22 14:02) Covid 19 Inhouse Test (04/22/22 14:02) Hs C Reactive Protein (04/22/22 14:02) Methylprednisolone Sod Succ (Solu-Medrol (04/22/22 14:15) Albuterol/Ipra Inhalation Soln (Duoneb I (04/22/22 14:15) Svn Small Volume Nebulizer (04/22/22 14:02) Hydroxyzine Oral (Atarax Tablet) (04/22/22 15:30) Medications Given in ED Current Medications Medications Dose Ordered Sig/Nicole Route Start Time Stop Time Status Last Admin Dose Admin Albuterol/ Ipratropium 3 ml ONCE ONCE INH 04/22/22 14:15 04/22/22 14:16 DC 04/22/22 15:16 3 ML Methylprednisolone Sodium Succinate 125 mg ONCE ONCE IM 04/22/22 14:15 04/22/22 14:16 DC 04/22/22 14:50 125 MG Vital Signs/I&O 04/22/22 13:41 Temp 35.8 Pulse 80 Resp 24 B/P (MAP) 138/116 (123) Pulse Ox 99 O2 Delivery Nasal Cannula Capillary Refill : Less Than 3 Seconds Blood Pressure Mean: 123 ECG Comment Atrial fibrillation with a rate of 81 bpm. Normal intervals outside the [place] interval. No ST or T wave abnormalities. No ectopy. No STEMI Departure Communication (Admissions) Family Conversation Patient is hemodynamically stable. Will walk into the room and she was sleeping she had no increased work of breathing whatsoever with clear lung sounds. When she woke up she immediately had recurrence of her pursed lip breathing. I think at least in part of is some of this is related to anxiety. The patient acknowledges that she is anxious all the time and does believe this may be the case. Her lungs are clear and her chest x-ray is clear. Her labs are reassuring as are her vital signs. He is 99% on her home 3 L of oxygen via nasal cannula and has not budged from this during her entire stay. She did get steroids and a breathing treatment which she feels helped her symptoms some. We will discharge her with a few more days of steroids. I do not see any pneumonia or other bacterial condition or require antibiotics at this time. Advise follow-up with her primary doctor for further evaluation and treatment. Impression Primary Impression: COPD (chronic obstructive pulmonary disease) Qualified Codes: J41.0 - Simple chronic bronchitis Disposition: 01 HOME, SELF-CARE Condition: Stable Departure-Patient Inst. Referrals: EDY GUTIÉRREZ MD (PCP/Family) Primary Care Physician Patient Instructions: Exacerbation of COPD Add. Discharge Instructions: Please take the steroid medication daily as prescribed. Use your oxygen as needed. Follow-up with your primary doctor in the next 24 to 48 hours. Return to the emergency department for any severe concerns. I do not see any evidence for pneumonia or any other reason to prescribe antibiotics at this time, reymundo gwynlly given that you recently had antibiotics. All discharge instructions reviewed with patient and/or family. Voiced understa nding. Scripts Prednisone (Prednisone) 50 Mg Tab 50 MG PO DAILY for 5 Days, #5 TAB Prov: CATALINA CORBIN DO 04/22/22 CATALINA CORBIN DO Apr 22, 2022 14:16
[2022-04-22 14:17] LABS: BILIRUBIN,TOTAL 1.4 MG/DL (0.1-1.0)
[2022-04-22 14:18] LABS: BASOPHILS % (AUTO) 0 % (0-10); EOSINOPHILS # (AUTO) 0.1 10^3/uL (0.0-0.3); EOSINOPHILS % (AUTO) 1 % (0-10); HEMATOCRIT 42 % (35-52); HEMOGLOBIN 14.5 g/dL (11.5-16.0); LYMPHOCYTES # (AUTO) 2.5 10^3/uL (1.0-4.0); LYMPHOCYTES % (AUTO) 28 % (12-44); MEAN CORPUSCULAR HEMOGLOBIN 31 pg (25-34); MEAN CORPUSCULAR HGB CONC 34 g/dL (32-36); MEAN CORPUSCULAR VOLUME 91 fL (80-99); MEAN PLATELET VOLUME 10.3 fL (9.0-12.2); MONOCYTES # (AUTO) 0.8 10^3/uL (0.0-1.0); MONOCYTES % (AUTO) 10 % (0-12); NEUTROPHILS # (AUTO) 5.3 10^3/uL (1.8-7.8); NEUTROPHILS % (AUTO) 61 % (42-75); PLATELET COUNT 243 10^3/uL (130-400); WHITE BLOOD COUNT 8.8 10^3/uL (4.3-11.0)
[2022-04-22 14:19] LABS: ALKALINE PHOSPHATASE 106 U/L (40-136); CREATININE SERUM 1.08 MG/DL (0.60-1.30); GFR ESTIMATED 55
[2022-04-22 14:20] LABS: BUN/CREATININE RATIO 18
[2022-04-22 14:22] LABS: ALANINE AMINOTRANSFERASE 16 U/L (0-55)
--- NOTE | 2022-04-22 14:39 | Diagnostic Imaging Report ---
INDICATION: Dyspnea. TECHNIQUE: AP view of the chest is obtained with comparison made to study of 04/06/2022. FINDINGS: Heart size and pulmonary vascularity are within normal limits, and the lungs are clear, bilaterally. IMPRESSION: Unremarkable chest. Dictated by: Dictated on workstation # [id number]
[2022-04-22] MEDS ORDERED: hydrOXYzine (ATARAX) 10 MG TAB PO ONE (15:30)
[2022-04-22] MEDS ORDERED: PRD50T PO (15:41)
[2022-04-22 15:55] VITALS: BP 110/84
== END 2022-04-22 15:55 | disposition home or self-care (01) ==
LOC: EDUNIT# 13:38 → ER 13:40
DX: J44.9 Chronic obstructive pulmonary disease, unspecified (principal); Z99.81 Dependence on supplemental oxygen; Z86.79 Personal history of other diseases of the circulatory system; Z95.0 Presence of cardiac pacemaker; Z20.822 Contact with and (suspected) exposure to COVID-19
CPT/HCPCS: 36415; 71045; 80053; 83880; 84484; 85025; 86141; 87636; 93005; 94640

== ENCOUNTER 2022-05-08 16:23 | Emergency (ER) | payer MEDICARE, MEDICAID ==
[~2022-05-08] VITALS: Ht 149.9 cm; Wt 77.1 kg
[~2022-05-08 16:23] MED LIST changes: +PRD50T PO
[2022-05-08 17:24] LABS: BASOPHILS % (AUTO) 0 % (0-10); EOSINOPHILS # (AUTO) 0.2 10^3/uL (0.0-0.3); EOSINOPHILS % (AUTO) 2 % (0-10); HEMATOCRIT 42 % (35-52); HEMOGLOBIN 14.4 g/dL (11.5-16.0); LYMPHOCYTES # (AUTO) 2.6 10^3/uL (1.0-4.0); LYMPHOCYTES % (AUTO) 25 % (12-44); MEAN CORPUSCULAR HEMOGLOBIN 31 pg (25-34); MEAN CORPUSCULAR HGB CONC 34 g/dL (32-36); MEAN CORPUSCULAR VOLUME 89 fL (80-99); MEAN PLATELET VOLUME 10.4 fL (9.0-12.2); MONOCYTES # (AUTO) 0.7 10^3/uL (0.0-1.0); MONOCYTES % (AUTO) 7 % (0-12); NEUTROPHILS # (AUTO) 6.9 10^3/uL (1.8-7.8); NEUTROPHILS % (AUTO) 66 % (42-75); PLATELET COUNT 246 10^3/uL (130-400); WHITE BLOOD COUNT 10.4 10^3/uL (4.3-11.0)
[2022-05-08 17:28] LABS: CHLORIDE 104 MMOL/L (98-107); SODIUM 142 MMOL/L (135-145)
--- NOTE | 2022-05-08 17:28 | ED General ---
General Chief Complaint: General Problems/Pain Stated Complaint: DIZZINESS Nursing Triage Note: PT TO RM 7 VIA [facility] W C/O FATIGUE AND NAUSEA. PT WEARS 3LNC AT ALL TIMES, WENT TO [place] FROM [id number] W/O O2 AND BELIEVES SHE FELT HER HEART GO INTO AFIB DURING THAT TIME, DENIES CP. PT ALSO C/O NECK/BACK/SHOULDER PAIN. PT A&OX4, APPEARS FATIGUED DURING TRIAGE. 20G LAC SL INITIATED BY [facility] PATENT UPON ARRIVAL TO ED. Source of Information: Patient, EMS Exam Limitations: No Limitations (MAGI GEE MD) History of Present Illness Date Seen by Provider: May 08, 2022 Time Seen by Provider: 17:07 Initial Comments Here with report of fatigue, headache, dizziness and nausea that started at around 3 PM. Apparently she was at a republican not using her oxygen when this occurred. She does have history of A. fib but does have a watchman device. She thinks she may have went to A. fib at that time. She does apparently have a pacemaker. She denies chest pain. States she is feeling a little bit better now but still quite fatigued and has the headache. She is vaccinated for COVID- 19 but she does not have the boosters. She does not believe that she has been exposed to COVID-19 but she does live at the [facility]. Denies diarrhea or dysuria. Reports eating and drinking okay but she is nauseated now. Timing/Duration: 1-3 Hours Severity: Moderate Associated Systoms: No Chest Pain, No Cough, No Fever/Chills; Headaches, Nausea/Vomiting, Shortness of Air, Weakness (MAGI GEE MD) Allergies and Home Medications Allergies Coded Allergies: Sulfa (Sulfonamide Antibiotics) (Verified Allergy, Unknown, 04/26/19) morphine (Verified Allergy, Unknown, 04/26/19) Patient Home Medication List Home Medication List Reviewed: Yes (MAGI GEE MD) Acetaminophen (Tylenol 8 Hour) 650 Mg Tablet.er, 1,300 MG PO Q4H, (Reported) Entered as Reported by: DEVON HILL on 01/16/20 1011 Calcium Carbonate (Calcium) 600 Mg Tablet, 600 MG PO DAILY, (Reported) Entered as Reported by: DEVON HILL on 09/21/19 1546 Celecoxib (Celebrex) 200 Mg Capsule, 200 MG PO BID, (Reported) Entered as Reported by: DEVON HILL on 01/16/20 1007 Cephalexin (Cephalexin) 500 Mg Tablet, 500 MG PO TID Prescribed by: JAIRO GALE on 04/06/22 1741 Cholecalciferol (Vitamin D3) (Vitamin D3) 125 Mcg Tablet, 125 MCG PO DAILY, (Reported) Entered as Reported by: DEVON HILL on 09/21/19 154 Cyclobenzaprine HCl (Cyclobenzaprine HCl) 10 Mg Tablet, 10 MG PO Q8H PRN for SPA SMS Prescribed by: EFRAIN URENA on 12/15/21 155 Digoxin (Lanoxin) 125 Mcg Tablet, 125 MCG PO DAILY, (Reported) Entered as Reported by: DEVON HILL on 09/21/19 1546 Fludrocortisone Acetate (Fludrocortisone Acetate) 0.1 Mg Tab, 0.1 MG PO DAILY Prescribed by: ATIF MARTEL on 01/17/20 1110 Fluticasone Propionate (Fluticasone Propionate) 16 Gm [place].susp, 2 SPRAYS NS DAILY PRN for ALLERGIES, (Reported) Entered as Reported by: MERCED PETERS on 08/15/19 0840 Folic Acid/Mv,Fe,Other Min (One Daily For Women Tablet) 1 Each Tablet, 1 EACH PO DAILY, (Reported) Entered as Reported by: DEVON HILL on 09/07/19 1540 Furosemide (Furosemide) 20 Mg Tablet, 20 MG PO DAILY PRN for FLUID RETENTION, (Reported) Entered as Reported by: DEVON HILL on 01/16/20 1011 Hydrocodone/Acetaminophen (Hydrocodone-Acetamin 5-325 mg) 5 Mg-325 Mg Tablet, 1 TAB PO Q6H PRN for PAIN-MODERATE (5-7) Prescribed by: EFRAIN URENA on 12/15/21 155 Magnesium Oxide (Magnesium) 400 Mg Tablet, 400 MG PO DAILY, (Reported) Entered as Reported by: DEVON HILL on 09/21/19 1546 Methylprednisolone (Methylprednisolone Dose Pack) 4 Mg Tab.ds.pk, 4 MG PO UD Prescribed by: EFRAIN URENA on 12/15/21 155 Metoprolol Tartrate (Metoprolol Tartrate) 25 Mg Tablet, 12.5 MG PO 1200,2200, (Reported) Entered as Reported by: MADDISON GALLOWAY on 04/26/19 1805 Paroxetine HCl (Paroxetine HCl) 40 Mg Tablet, 40 MG PO HS, (Reported) Entered as Reported by: DEVON HILL on 01/16/20 1007 Polyethylene Glycol 3350 (Miralax) 17 Gm Powd.pack, 17 GM PO DAILY, (Reported) Entered as Reported by: MERCED PETERS on 04/27/19 0857 Potassium Chloride (Potassium Chloride) 10 Meq Capsule.er, 10 MEQ PO DAILY PRN for WHEN TAKING FUROSEMIDE, (Reported) Entered as Reported by: DEVON HILL on 09/07/19 1546 Prednisone (Prednisone) 20 Mg Tab, 40 MG PO DAILY Prescribed by: JAIRO GALE on 04/06/22 1741 Prednisone (Prednisone) 50 Mg Tab, 50 MG PO DAILY Prescribed by: CATALINA CORBIN MD on 04/22/22 1541 Review of Systems Review of Systems Constitutional: see HPI; No chills; dizziness; No fever; weakness EENTM: throat pain; No nose congestion Respiratory: No cough; short of breath Cardiovascular: No chest pain, No edema; palpitations Gastrointestinal: nausea; No vomiting Genitourinary: No dysuria, No frequency Musculoskeletal: No back pain, No joint pain Skin: No change in color, No lesions Psychiatric/Neurological: See HPI (MAIG GEE MD) All Other Systems Reviewed Negative Unless Noted: Yes (MAGI GEE MD) Past Ytbmioc-Rlqyvd-Acjivo Hx Patient Social History Tobacco Use?: No Use of E-Cig and/or Vaping dev: No Substance use?: No Alcohol Use?: No (MAGI GEE MD) Immunizations Up To Date First/Initial COVID19 Vaccinat: january 2022 Second COVID19 Vaccination Juventino: february 2022 Third COVID19 Vaccination Date: february 2022 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: [employer] (MAGI GEE MD) Seasonal Allergies Seasonal Allergies: Yes (MAGI GEE MD) Past Medical History Surgery/Hospitalization HX: COPD, RA, CHF, AFIB Surgeries: Yes ("MESH IN RECTAL AREA" PER OLD RECORDS; CARDIAC CATH IN [place]) Adenoidectomy, Appendectomy, Cardiac, Gallbladder, Hysterectomy, Oophorectomy, Pacemaker, Rectal, Tonsillectomy Respiratory: Yes Asthma, COPD Cardiac: Yes (SSS,PACEMAKER (MEDTR); CHF; NON-ISCHEMIC CARDIOMYOPATHY;CAD-NO INTERVENTION) Atrial Fibrillation, Cardiomyopathy, Coronary Artery Disease, Heart Attack, High Cholesterol, Hypertension, Irregular Heartbeat, Syncope Neurological: Yes (STROKE WITH RIGHT SIDE WEAKNESS, PER PT) 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, 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 Genitourinary: No Gastrointestinal: Yes Gastroesophageal Reflux Musculoskeletal: Yes (RIGHT SHOULDER PAIN/ROTATOR CUFF PROBLEMS) Arthritis Endocrine: Yes Hypothyroidsim HEENT: No Cancer: No Psychosocial: Yes Anxiety, Bipolar, Depression Integumentary: No Blood Disorders: No (MAGI GEE MD) Family Medical History Reviewed Nursing Family Hx (MAGI GEE MD) No Pertinent Family Hx (MAGI GEE MD) Physical Exam Vital Signs Vital Signs - First Documented 05/08/22 16:23 Temp 36.4 Pulse 73 Resp 20 B/P (MAP) 140/85 (103) Pulse Ox 98 O2 Delivery Nasal Cannula O2 Flow Rate 3.00 (REENA HENRIQUEZ MD) Vital Signs Capillary Refill : Less Than 3 Seconds (MAGI GEE MD) Height, Weight, BMI Height: '" Weight: lbs. oz. 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 Norm as Tested Skin: Normal Color, Warm/Dry (MAGI GEE MD) Progress/Results/Core Measures Suspected Sepsis SIRS Temperature: Pulse: 73 Respiratory Rate: 20 Laboratory Tests 05/08/22 16:26: White Blood Count 10.4 Blood Pressure 140 /85 Mean: 103 Laboratory Tests 05/08/22 16:26: Platelet Count 246, Total Bilirubin 0.8 (MAGI GEE MD) Results/Orders Lab Results Laboratory Tests Test 05/08/22 16:26 05/08/22 17:24 10/28/22 17:30 Range/Units White Blood Count 10.4 4.3-11.0 10^3/uL Red Blood Count 4.68 3.80-5.11 10^6/uL Hemoglobin 14.4 11.5-16.0 g/dL Hematocrit 42 35-52 % Mean Corpuscular Volume 89 80-99 fL Mean Corpuscular Hemoglobin 31 25-34 pg Mean Corpuscular Hemoglobin Concent 34 32-36 g/dL Red Cell Distribution Width 12.4 10.0-14.5 % Platelet Count 246 130-400 10^3/uL Mean Platelet Volume 10.4 9.0-12.2 fL Immature Granulocyte % (Auto) 0 % Neutrophils (%) (Auto) 66 42-75 % Lymphocytes (%) (Auto) 25 12-44 % Monocytes (%) (Auto) 7 0-12 % Eosinophils (%) (Auto) 2 0-10 % Basophils (%) (Auto) 0 0-10 % Neutrophils # (Auto) 6.9 1.8-7.8 10^3/uL Lymphocytes # (Auto) 2.6 1.0-4.0 10^3/uL Monocytes # (Auto) 0.7 0.0-1.0 10^3/uL Eosinophils # (Auto) 0.2 0.0-0.3 10^3/uL Basophils # (Auto) 0.0 0.0-0.1 10^3/uL Immature Granulocyte # (Auto) 0.0 0.0-0.1 10^3/uL Sodium Level 142 135-145 MMOL/L Potassium Level 3.0 L 3.6-5.0 MMOL/L Chloride Level 104 98-107 MMOL/L Carbon Dioxide Level 27 21-32 MMOL/L Anion Gap 11 5-14 MMOL/L Blood Urea Nitrogen 16 7-18 MG/DL Creatinine 1.12 0.60-1.30 MG/DL Estimat Glomerular Filtration Rate 53 BUN/Creatinine Ratio 14 Glucose Level 156 H 70-105 MG/DL Calcium Level 9.4 8.5-10.1 MG/DL Corrected Calcium 9.4 8.5-10.1 MG/DL Total Bilirubin 0.8 0.1-1.0 MG/DL Aspartate Amino Transf (AST/SGOT) 24 5-34 U/L Alanine Aminotransferase (ALT/SGPT) 16 0-55 U/L Alkaline Phosphatase 97 40-136 U/L Troponin I < 0.028 <0.028 NG/ML C-Reactive Protein High Sensitivity 0.10 0.00-0.50 MG/DL B-Type Natriuretic Peptide 148.5 H <100.0 PG/ML Total Protein 7.0 6.4-8.2 GM/DL Albumin 4.0 3.2-4.5 GM/DL Blood Gas Puncture Site LEFT RADIAL Blood Gas Patient Temperature 36.4 Arterial Blood pH 7.42 7.37-7.43 Arterial Blood Partial Pressure CO2 44 35-45 MMHG Arterial Blood Partial Pressure O2 107 H 79-93 MMHG Arterial Blood HCO3 28 H 23-27 MMOL/L Arterial Blood Total CO2 29.5 21.0-31.0 MMOL/L Arterial Blood Oxygen Saturation 99 94-100 % Arterial Blood Base Excess 3.7 H -2.5-2.5 MMOL/L Javier Test YES-POS Blood Gas Ventilator Setting NO Blood Gas Inspired Oxygen 3 Influenza Type A (RT-PCR) Not Detected Not Detecte Influenza Type B (RT-PCR) Not Detected Not Detecte SARS-CoV-2 RNA (RT-PCR) Not Detected Not Detecte Urine Color YELLOW Urine Clarity CLEAR Urine pH 6.0 5-9 Urine Specific Bailey 1.015 L 1.016-1.022 Urine Protein NEGATIVE NEGATIVE Urine Glucose (UA) NEGATIVE NEGATIVE Urine Ketones NEGATIVE NEGATIVE Urine Nitrite NEGATIVE NEGATIVE Urine Bilirubin NEGATIVE NEGATIVE Urine Urobilinogen 0.2 < = 1.0 MG/DL Urine Leukocyte Esterase TRACE H NEGATIVE Urine RBC (Auto) 1+ H NEGATIVE Urine RBC RARE /HPF Urine WBC 2-5 /HPF Urine Squamous Epithelial Cells RARE /HPF Urine Crystals NONE /LPF Urine Bacteria TRACE /HPF Urine Casts NONE /LPF Urine Mucus NEGATIVE /LPF Urine Culture Indicated NO (REENA HENRIQUEZ MD) My Orders Orders - REENA HENRIQUEZ MD Potassium Cl 10meq/50ml Ivpb (Kcl 10 Meq (05/08/22 18:15) Potassium Chloride (Tablet) (Klor Con Ta (05/08/22 18:15) (REENA HENRIQUEZ MD) Medications Given in ED Current Medications Medications Dose Ordered Sig/Nicole Route Start Time Stop Time Status Last Admin Dose Admin Ondansetron HCl 4 mg ONCE ONCE IVP 05/08/22 17:45 05/08/22 17:46 DC 05/08/22 18:08 4 MG Potassium Chloride 40 meq ONCE ONCE PO 05/08/22 18:15 05/08/22 18:16 DC 05/08/22 19:08 40 MEQ Potassium Chloride 50 ml @ 50 mls/hr ONCE ONCE IV 05/08/22 18:15 05/08/22 19:14 DC 05/08/22 18:25 50 MLS/HR Sodium Chloride 500 ml @ 0 mls/hr Q0M ONCE IV 05/08/22 17:30 05/08/22 17:31 DC 05/08/22 18:08 0 MLS/HR (REENA HENRIQUEZ MD) Vital Signs/I&O 05/08/22 16:23 Temp 36.4 Pulse 73 Resp 20 B/P (MAP) 140/85 (103) Pulse Ox 98 O2 Delivery Nasal Cannula O2 Flow Rate 3.00 (REENA HENRIQUEZ MD) Vital Signs/I&O Capillary Refill : Less Than 3 Seconds (MAGI GEE MD) Blood Pressure Mean: 103 Progress Note : Progress Note Seen and evaluated. IV by EMS ordered. Labs, EKG and chest x-ray ordered. I did get report from EMS as patient is somewhat poor historian but her story is matching up now. Normal saline 500 mL bolus ordered. We will go ahead and get ABG and also check COVID given headache and her history of oxygen requirement and COPD. We will evaluate for CO2 narcosis. She is not on anticoagulation but does have watchman device so it is not required. We will check UA. Monitor patient. (MAGI GEE MD) Progress Note #1: Time: 19:07 Progress Note Care of this patient was assumed from Dr. Gee at shift change. Work-up revealed notable hypokalemia at 3.0. Potassium replacement was started with 10 mEq by IV route followed by 40 mEq orally. Patient comments that she has had problems with hypokalemia in the past. Patient is exhibiting an intermittent paced rhythm at about 80 bpm. She is alert and oriented. Progress Note #2: Time: 19:16 Progress Note Patient received her potassium supplementation and was able to ambulate without difficulty. She is discharged with follow-up recommended. See discharge instructions for further discussion. (REENA HENRIQUEZ MD) ECG Initial ECG Impression Date: May 08, 2022 Initial ECG Impression Time: 17:24 Initial ECG Rate: 72 Initial ECG Rhythm: A Fib/Flutter Comment Atrial fibrillation with paced rhythm similar to previous except pacing of 04/22/2022. Normal axis. No evidence of ST elevation NM. Interpreted by me. (MAGI GEE MD) Diagnostic Imaging Diagonstic Imaging: Xray Plain Films/CT/US/NM/MRI: chest Comments NAME: JACE PARRISH [facility] REC#: [id number] PT STATUS: REG ER : 1950 PHYSICIAN: MAGI GEE MD ADMIT DATE: 05/08/22/ER Signed Date of Exam:05/08/22 CHEST 1 VIEW, AP/PA ONLY INDICATION: Shortness of air. COMPARISON: 10/21/2021. TECHNIQUE: Single radiograph of the chest dated 05/08/2022. FINDINGS: Pacer device is again identified with battery pack overlying the right chest. The cardiac silhouette is within normal limits in size. No significant pulmonary vascular congestion. The lungs appear clear of focal pulmonary opacity. No pleural effusion. No pneumothorax. Osseous structures appear unchanged. IMPRESSION: Pacer device is in place without superimposed acute cardiopulmonary abnormality. Dictated by: Dictated on workstation # [id number] Dict: 05/08/221805 Trans: 05/08/221816 [id number] Interpreted by: MILE BURGESS MD Electronically signed by: MILE BURGESS MD 05/08/221816 (REENA HENRIQUEZ MD) Departure Impression Primary Impression: Hypokalemia Additional Impression: Dizziness Disposition: 01 HOME, SELF-CARE Condition: Improved Departure-Patient Inst. Decision time for Depature: 19:10 (REENA HENRIQUEZ MD) Referrals: DEVON STONE DO (PCP/Family) Primary Care Physician Patient Instructions: Hypokalemia Add. Discharge Instructions: Continue your medications and supplemental oxygen as previously prescribed. Please follow-up with Dr. Fitzgerald and Dr. Stone as soon as possible. Please call their offices first thing on [place] morning. You should probably have your potassium checked again early next week by one of your doctors. Return to care if you have worsening symptoms. All discharge instructions reviewed with patient and/or family. Voiced understanding. Copy Copies To 1: ADELAIDA FITZGERALD MD Copies To 2: DEVON STONE TIMOTHY D MD May 08, 2022 17:28 REENA HENRIQUEZ MD May 08, 2022 19:11
[2022-05-08 17:29] LABS: CALCIUM 9.4 MG/DL (8.5-10.1)
[2022-05-08 17:30] LABS: ABG BASE EXCESS 3.7 MMOL/L (-2.5-2.5); ABG OXYGEN SATURATION 99 % (94-100); ABG PCO2 44 MMHG (35-45); ABG PH 7.42 (7.37-7.43); ABG PO2 107 MMHG (79-93); ABG TCO2 29.5 MMOL/L (21.0-31.0)
[2022-05-08 17:30] LABS: GLUCOSE 156 MG/DL (70-105)
[2022-05-08] MEDS ORDERED: NS IV 500 ML 500 ML IV ONE (17:30)
[2022-05-08 17:31] LABS: CARBON DIOXIDE 27 MMOL/L (21-32)
[2022-05-08 17:32] LABS: ALLENS TEST YES-POS; INSPIRED O2 3; PATIENT TEMP 36.4; VENTILATOR NO
[2022-05-08 17:32] LABS: BILIRUBIN,TOTAL 0.8 MG/DL (0.1-1.0)
[2022-05-08 17:34] LABS: ALKALINE PHOSPHATASE 97 U/L (40-136); CREATININE SERUM 1.12 MG/DL (0.60-1.30); GFR ESTIMATED 53
[2022-05-08 17:35] LABS: BUN/CREATININE RATIO 14
[2022-05-08 17:35] LABS: BILIRUBIN,URINE NEGATIVE (NEGATIVE); CLARITY,URINE CLEAR; COLOR,URINE YELLOW; GLUCOSE, URINE (UA) NEGATIVE (NEGATIVE); KETONES,URINE NEGATIVE (NEGATIVE); LEUKOCYTE ESTERASE ,URINE TRACE (NEGATIVE); NITRITE,URINE NEGATIVE (NEGATIVE); PROTEIN,URINE NEGATIVE (NEGATIVE)
[2022-05-08 17:37] LABS: ALANINE AMINOTRANSFERASE 16 U/L (0-55)
[2022-05-08] MEDS ORDERED: KETOROLAC 30 MG/ML VIAL IVP STA (17:40)
[2022-05-08 17:43] LABS: BACTERIA,URINE TRACE /HPF; RBC,URINE RARE /HPF; SQUAMOUS EPITHELIAL CELL,UR RARE /HPF
[2022-05-08] MEDS ORDERED: ONDANSETRON 4 MG/2 ML (SDV) Z0FRAN IVP ONE (17:45)
--- NOTE | 2022-05-08 18:10 | Diagnostic Imaging Report ---
INDICATION: Shortness of air. COMPARISON: 10/21/2021. TECHNIQUE: Single radiograph of the chest dated 05/08/2022. FINDINGS: Pacer device is again identified with battery pack overlying the right chest. The cardiac silhouette is within normal limits in size. No significant pulmonary vascular congestion. The lungs appear clear of focal pulmonary opacity. No pleural effusion. No pneumothorax. Osseous structures appear unchanged. IMPRESSION: Pacer device is in place without superimposed acute cardiopulmonary abnormality. Dictated by: Dictated on workstation # [id number]
[2022-05-08] MEDS ORDERED: POTASSIUM CL 10MEQ/50ML IVPB 50 ML IV ONE (18:15)
[2022-05-08] MEDS ORDERED: KCL 10 MEQ TAB (MICRO K) PO ONE (18:15)
[2022-05-08 19:14] VITALS: BP 107/75
== END 2022-05-08 19:18 | disposition home or self-care (01) ==
LOC: EDUNIT# 16:23 → ER 16:25
DX: E87.6 Hypokalemia (principal); R42 Dizziness and giddiness; R11.0 Nausea; Z20.822 Contact with and (suspected) exposure to COVID-19; Z28.311 Partially vaccinated for COVID-19
CPT/HCPCS: 36415; 51701; 71045; 80053; 81000; 82805; 83880; 84484; 85025; 86141; 87636; 93005; 93041

== ENCOUNTER 2022-06-11 12:31 | Emergency (ER) | payer MEDICARE, MEDICAID ==
[~2022-06-11] VITALS: Ht 149.9 cm; Wt 80.7 kg
[2022-06-11 13:00] LABS: BASOPHILS % (AUTO) 1 % (0-10); EOSINOPHILS # (AUTO) 0.1 10^3/uL (0.0-0.3); EOSINOPHILS % (AUTO) 1 % (0-10); HEMATOCRIT 42 % (35-52); HEMOGLOBIN 14.1 g/dL (11.5-16.0); LYMPHOCYTES # (AUTO) 1.2 10^3/uL (1.0-4.0); LYMPHOCYTES % (AUTO) 14 % (12-44); MEAN CORPUSCULAR HEMOGLOBIN 31 pg (25-34); MEAN CORPUSCULAR HGB CONC 34 g/dL (32-36); MEAN CORPUSCULAR VOLUME 91 fL (80-99); MEAN PLATELET VOLUME 10.2 fL (9.0-12.2); MONOCYTES # (AUTO) 0.8 10^3/uL (0.0-1.0); MONOCYTES % (AUTO) 10 % (0-12); NEUTROPHILS # (AUTO) 6.4 10^3/uL (1.8-7.8); NEUTROPHILS % (AUTO) 75 % (42-75); PLATELET COUNT 223 10^3/uL (130-400); WHITE BLOOD COUNT 8.5 10^3/uL (4.3-11.0)
[2022-06-11 13:12] LABS: ALBUMIN 3.8 GM/DL (3.2-4.5)
[2022-06-11 13:13] LABS: CHLORIDE 106 MMOL/L (98-107); SODIUM 140 MMOL/L (135-145)
[2022-06-11 13:14] LABS: CALCIUM 9.3 MG/DL (8.5-10.1)
[2022-06-11 13:15] LABS: GLUCOSE 88 MG/DL (70-105); TOTAL PROTEIN 6.9 GM/DL (6.4-8.2)
[2022-06-11 13:16] LABS: CARBON DIOXIDE 23 MMOL/L (21-32)
[2022-06-11 13:17] LABS: BILIRUBIN,TOTAL 0.9 MG/DL (0.1-1.0)
[2022-06-11 13:19] LABS: ALKALINE PHOSPHATASE 118 U/L (40-136); GFR ESTIMATED 68
[2022-06-11 13:20] LABS: BUN/CREATININE RATIO 12
[2022-06-11 13:22] LABS: ALANINE AMINOTRANSFERASE 11 U/L (0-55)
--- NOTE | 2022-06-11 13:55 | Diagnostic Imaging Report ---
CHEST 1 VIEW, AP/PA ONLY Indication: Shortness of breath Comparison: 05/08/2022 Findings: Stable mild enlargement of cardiac silhouette. Right pectoral transvenous pacemaker is stable in appearance. Central reticular opacities have developed in the lungs. No pleural effusion or pneumothorax. Impression: 1. Potential mild pulmonary edema has developed. Dictated by: Dictated on workstation # [id number]
--- NOTE | 2022-06-11 14:29 | ED General ---
General Chief Complaint: Cough/Cold/Flu Symptoms Stated Complaint: SOB Nursing Triage Note: PT TO ED IN BY POV WITH DAUGHTER WITH C/O SOB, WEAKNESS, ACHINESS, MACKENZIE, COUGH, CONGESTION, N/V/D X 2 DAYS. PT REPORTS "EVERYONE IN THE BUILDING IS SICK." Source of Information: Patient Exam Limitations: No Limitations History of Present Illness Date Seen by Provider: Jun 11, 2022 Time Seen by Provider: 12:35 Initial Comments Patient is a 71-year-old female who presents to the emergency department for evaluation of 2 days of shortness of breath, weakness, body aches, headache, cough/congestion, and nausea/vomiting/diarrhea. States everyone in her building is sick with similar symptoms. She has a history of atrial fibrillation for which she has a implanted watchman and takes rate control medications. She denies any chest pain. States her shortness of air is slightly worse with exertion. Denies any diaphoresis or increased lower extremity edema. States she had 1 Pfizer COVID-vaccine. Allergies and Home Medications Allergies Coded Allergies: Sulfa (Sulfonamide Antibiotics) (Verified Allergy, Unknown, 04/26/19) morphine (Verified Allergy, Unknown, 04/26/19) Patient Home Medication List Home Medication List Reviewed: Yes Acetaminophen (Tylenol 8 Hour) 650 Mg Tablet.er, 1,300 MG PO Q4H, (Reported) Entered as Reported by: DEVON HILL on 01/16/20 1011 Calcium Carbonate (Calcium) 600 Mg Tablet, 600 MG PO DAILY, (Reported) Entered as Reported by: DEVON HILL on 09/21/19 1546 Celecoxib (Celebrex) 200 Mg Capsule, 200 MG PO BID, (Reported) Entered as Reported by: DEVON HILL on 01/16/20 1007 Cephalexin (Cephalexin) 500 Mg Tablet, 500 MG PO TID Prescribed by: JAIRO GALE on 04/06/22 1741 Cholecalciferol (Vitamin D3) (Vitamin D3) 125 Mcg Tablet, 125 MCG PO DAILY, (Reported) Entered as Reported by: DEVON HILL on 09/21/19 1546 Cyclobenzaprine HCl (Cyclobenzaprine HCl) 10 Mg Tablet, 10 MG PO Q8H PRN for SPASMS Prescribed by: EFRAIN URENA on 12/15/21 1556 Digoxin (Lanoxin) 125 Mcg Tablet, 125 MCG PO DAILY, (Reported) Entered as Reported by: DEVON HILL on 09/21/19 1546 Fludrocortisone Acetate (Fludrocortisone Acetate) 0.1 Mg Tab, 0.1 MG PO DAILY Prescribed by: ATIF MARTEL on 01/17/20 1110 Fluticasone Propionate (Fluticasone Propionate) 16 Gm Mcnabb.susp, 2 SPRAYS NS DAILY PRN for ALLERGIES, (Reported) Entered as Reported by: MERCED PETERS on 08/15/19 0840 Folic Acid/Mv,Fe,Other Min (One Daily For Women Tablet) 1 Each Tablet, 1 EACH PO DAILY, (Reported) Entered as Reported by: DEVON HILL on 09/07/19 1540 Furosemide (Furosemide) 20 Mg Tablet, 20 MG PO DAILY PRN for FLUID RETENTION, (Reported) Entered as Reported by: DEVON HILL on 01/16/20 1011 Hydrocodone/Acetaminophen (Hydrocodone-Acetamin 5-325 mg) 5 Mg-325 Mg Tablet, 1 TAB PO Q6H PRN for PAIN-MODERATE (5-7) Prescribed by: EFRAIN URENA on 12/15/21 1557 Magnesium Oxide (Magnesium) 400 Mg Tablet, 400 MG PO DAILY, (Reported) Entered as Reported by: DEVON HILL on 09/21/19 1546 Methylprednisolone (Methylprednisolone Dose Pack) 4 Mg Tab.ds.pk, 4 MG PO UD Prescribed by: EFRAIN URENA on 12/15/21 1556 Metoprolol Tartrate (Metoprolol Tartrate) 25 Mg Tablet, 12.5 MG PO 1200,2200, (Reported) Entered as Reported by: MADDISON GALLOWAY on 04/26/19 1805 Nirmatrelvir/Ritonavir (Paxlovid 300-100 mg Pack (Eua)) 300 Mg (150 Mg X 2)-100 Mg Tab.ds.pk, 1 EACH PO BID Prescribed by: Heraclio Johnston on 06/11/22 1432 Paroxetine HCl (Paroxetine HCl) 40 Mg Tablet, 40 MG PO HS, (Reported) Entered as Reported by: DEVON HILL on 01/16/20 1007 Polyethylene Glycol 3350 (Miralax) 17 Gm Powd.pack, 17 GM PO DAILY, (Reported) Entered as Reported by: MERCED PETERS on 04/27/19 0857 Potassium Chloride (Potassium Chloride) 10 Meq Capsule.er, 10 MEQ PO DAILY PRN for WHEN TAKING FUROSEMIDE, (Reported) Entered as Reported by: DEVON HILL on 09/07/19 1546 Prednisone (Prednisone) 20 Mg Tab, 40 MG PO DAILY Prescribed by: JAIRO GALE on 04/06/22 1741 Prednisone (Prednisone) 50 Mg Tab, 50 MG PO DAILY Prescribed by: CATALINA CORBIN MD on 04/22/22 1541 Review of Systems Review of Systems Constitutional: see HPI, malaise, weakness EENTM: see HPI, nose congestion Respiratory: see HPI, cough, short of breath Cardiovascular: no symptoms reported Gastrointestinal: see HPI, diarrhea, nausea, vomiting Genitourinary: no symptoms reported Musculoskeletal: see HPI, muscle pain Skin: no symptoms reported Psychiatric/Neurological: No Symptoms Reported Past Wopdhhp-Qlmeak-Zbagao Hx Immunizations Up To Date First/Initial COVID19 Vaccinat: january 2022 Second COVID19 Vaccination Juventino: february 2022 Third COVID19 Vaccination Date: february 2022 Seasonal Allergies Seasonal Allergies: Yes Past Medical History Surgery/Hospitalization HX: COPD, RA, CHF, AFIB Surgeries: Yes ("MESH IN RECTAL AREA" PER OLD RECORDS; CARDIAC CATH IN [place]) Adenoidectomy, Appendectomy, Cardiac, Gallbladder, Hysterectomy, Oophorectomy, Pacemaker, Rectal, Tonsillectomy Respiratory: Yes Asthma, COPD Cardiac: Yes (SSS,PACEMAKER (MEDTR); CHF; NON-ISCHEMIC CARDIOMYOPATHY;CAD-NO INTERVENTION) Atrial Fibrillation, Cardiomyopathy, Coronary Artery Disease, Heart Attack, High Cholesterol, Hypertension, Irregular Heartbeat, Syncope Neurological: Yes (STROKE WITH RIGHT SIDE WEAKNESS, PER PT) Stroke DISEASE 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 oz. kg; 35.00 BMI Method: General Appearance: No Apparent Distress, WD/WN HEENT: PERRL/EOMI, TMs Normal, Normal ENT Inspection, Pharynx Normal Neck: Normal Inspection, Non Tender, Supple Respiratory: Chest Non Tender, Lungs Clear, Normal Breath Sounds, No Accessory Muscle Use, No Respiratory Distress Cardiovascular: Regular Rate, Rhythm Gastrointestinal: Non Tender, Soft Neurologic/Psychiatric: Alert, Oriented x3, No Motor/Sensory Deficits, Normal Mood/Affect Skin: Normal Color, Warm/Dry Progress/Results/Core Measures Suspected Sepsis SIRS Temperature: Pulse: 96 Respiratory Rate: 27 Laboratory Tests 06/11/22 12:56: White Blood Count 8.5 Blood Pressure 134 /97 Mean: 109 Laboratory Tests 06/11/22 12:56: Creatinine 0.90, Platelet Count 223, Total Bilirubin 0.9 Results/Orders Lab Results Laboratory Tests Test 06/11/22 12:52 06/11/22 12:56 Range/Units Influenza Type A (RT-PCR) Not Detected Not Detecte Influenza Type B (RT-PCR) Not Detected Not Detecte SARS-CoV-2 RNA (RT-PCR) Detected H Not Detecte White Blood Count 8.5 4.3-11.0 10^3/uL Red Blood Count 4.56 3.80-5.11 10^6/uL Hemoglobin 14.1 11.5-16.0 g/dL Hematocrit 42 35-52 % Mean Corpuscular Volume 91 80-99 fL Mean Corpuscular Hemoglobin 31 25-34 pg Mean Corpuscular Hemoglobin Concent 34 32-36 g/dL Red Cell Distribution Width 12.3 10.0-14.5 % Platelet Count 223 130-400 10^3/uL Mean Platelet Volume 10.2 9.0-12.2 fL Immature Granulocyte % (Auto) 0 % Neutrophils (%) (Auto) 75 42-75 % Lymphocytes (%) (Auto) 14 12-44 % Monocytes (%) (Auto) 10 0-12 % Eosinophils (%) (Auto) 1 0-10 % Basophils (%) (Auto) 1 0-10 % Neutrophils # (Auto) 6.4 1.8-7.8 10^3/uL Lymphocytes # (Auto) 1.2 1.0-4.0 10^3/uL Monocytes # (Auto) 0.8 0.0-1.0 10^3/uL Eosinophils # (Auto) 0.1 0.0-0.3 10^3/uL Basophils # (Auto) 0.0 0.0-0.1 10^3/uL Immature Granulocyte # (Auto) 0.0 0.0-0.1 10^3/uL Sodium Level 140 135-145 MMOL/L Potassium Level 4.0 3.6-5.0 MMOL/L Chloride Level 106 98-107 MMOL/L Carbon Dioxide Level 23 21-32 MMOL/L Anion Gap 11 5-14 MMOL/L Blood Urea Nitrogen 11 7-18 MG/DL Creatinine 0.90 0.60-1.30 MG/DL Estimat Glomerular Filtration Rate 68 BUN/Creatinine Ratio 12 Glucose Level 88 70-105 MG/DL Calcium Level 9.3 8.5-10.1 MG/DL Corrected Calcium 9.5 8.5-10.1 MG/DL Total Bilirubin 0.9 0.1-1.0 MG/DL Aspartate Amino Transf (AST/SGOT) 16 5-34 U/L Alanine Aminotransferase (ALT/SGPT) 11 0-55 U/L Alkaline Phosphatase 118 40-136 U/L Troponin I < 0.028 <0.028 NG/ML B-Type Natriuretic Peptide 230.2 H <100.0 PG/ML Total Protein 6.9 6.4-8.2 GM/DL Albumin 3.8 3.2-4.5 GM/DL My Orders Orders - HERACLIO JOHNSTON ADMITTING OFFICER Cbc With Automated Diff (06/11/22 12:38) Comprehensive Metabolic Panel (06/11/22 12:38) Bnp Corine (06/11/22 12:38) Troponin I [place] (06/11/22 12:38) Ekg Tracing (06/11/22 12:38) Covid 19 Inhouse Test (06/11/22 12:38) Influenza A And B By Pcr (06/11/22 12:38) Isolation Central Supply Req (06/11/22 12:38) Iv/Invasive Line Insertion .IV INSERT (06/11/22 12:38) Chest 1 View, Ap/Pa Only (06/11/22 12:38) Diltiazem Injection (Cardizem Injection) (06/11/22 13:15) Ibuprofen Tablet (Motrin Tablet) (06/11/22 14:45) Medications Given in ED Vital Signs/I&O 06/11/22 06/11/22 06/11/22 12:33 13:17 14:48 Temp 36.8 Pulse 105 96 91 Resp 27 18 B/P (MAP) 130/102 (111) 134/97 124/74 Pulse Ox 98 99 O2 Delivery Room Air Room Air Capillary Refill : 2 Blood Pressure Mean: 109 Progress Note : Progress Note Patient is nontoxic and well-hydrated on exam. No adventitious lung sounds or increased work of breathing noted. Vital signs are overall reassuring. She is currently in A. fib but her heart rate is not consistently over 100. She was given a modest dose of Cardizem with further improvement in her heart rate. Chest x-ray is negative for any infiltrates or concern for infection. Laboratory evaluation is otherwise largely reassuring. COVID is positive. Will give patient a prescription for Paxlovid. I discussed there is some data that supports that digoxin levels may be increased with concurrent use of Paxlovid. I stated that she needs to speak to her microbiology technician in regards to any dose change in her digoxin prior to starting the Paxlovid. She states she would do this. Return precautions for urgent symptomology discussed. Patient verbalized understanding. Departure Impression Primary Impression: COVID-19 Disposition: 01 HOME, SELF-CARE Condition: Stable Departure-Patient Inst. Decision time for Depature: 14:30 Referrals: DEVON STONE DO (PCP/Family) Primary Care Physician Patient Instructions: COVID-19 (DC) Scripts Nirmatrelvir/Ritonavir (Paxlovid 300-100 mg Pack (Eua)) 300 Mg (150 Mg X 2)-100 Mg Tab.ds.pk 1 EACH PO BID for 5 Days, #10 PKG Prov: HERACLIO JOHNSTON ADMITTING OFFICER 06/11/22 HERACLIO JOHNSTON ADMITTING OFFICER Jun 11, 2022 14:29
[2022-06-11] MEDS ORDERED: NIRM1TAB PO (14:32)
[2022-06-11] MEDS ORDERED: IBUPROFEN 600 MG (MOTRIN) TAB PO ONE (14:45)
[2022-06-11 14:48] VITALS: BP 124/74
== END 2022-06-11 14:54 | disposition home or self-care (01) ==
LOC: EDUNIT# 12:31 → ER 12:33
DX: U07.1 COVID-19 (principal); I48.91 Unspecified atrial fibrillation; Z79.899 Other long term (current) drug therapy
CPT/HCPCS: 36415; 71045; 80053; 83880; 84484; 85025; 87636; 93005

== ENCOUNTER 2022-06-19 18:21 | Inpatient (IN) | payer MEDICARE, MEDICAID ==
[~2022-06-19] VITALS: Ht 154.9 cm; Wt 85.8 kg
[~2022-06-19 18:21] MED LIST changes: +NIRM1TAB PO
[2022-06-19] MEDS ORDERED: ONDANSETRON 4 MG/2 ML (SDV) Z0FRAN ONE (18:28)
[2022-06-19] MEDS ORDERED: methylPREDNISolone 125 MG (Solu-MEDROL) VIAL ONE (18:29)
[2022-06-19] MEDS ORDERED: RT-ALBUTEROL/IPRATROPIUM 3 ML (DUONEB) VIAL INH ONE ×2 (18:30→20:30)
[2022-06-19] MEDS ORDERED: ONDANSETRON 4 MG/2 ML (SDV) Z0FRAN IVP ONE (18:30)
[2022-06-19] MEDS ORDERED: methylPREDNISolone 125 MG (Solu-MEDROL) VIAL IVP ONE (18:30)
--- NOTE | 2022-06-19 18:51 | ED Chest Pain ---
General Chief Complaint: Chest Pain Stated Complaint: SOA,CHEST PAIN Nursing Triage Note: PT BROUGHT TO ED VIA [facility] EMS ON ALS FOR CP. PT TOOK HER DOG FOR A WALK WHEN SHE LEFT LIKE AN ELEPHANT WAS SITTING ON HER CHEST. PT BROUGHT TO ROOM 09 WITH 22G IN RT HAND AND 6L O2. Source: patient Exam Limitations: no limitations History of Present Illness Date Seen by Provider: Jun 19, 2022 Time Seen by Provider: 18:23 Initial Comments This 71-year-old woman presents to the emergency room via EMS with complaints of shortness of breath and chest pain. She was recently diagnosed with COVID-19 14 days ago. She was walking her dog when she felt a heaviness in her chest. She has been using supplemental oxygen at home since her COVID diagnosis. She typically uses 2 L and increased it to 4 L today. She appears in respiratory distress with accessory muscle use on arrival. She does have history of COPD and sleep apnea. She also has history of atrial fibrillation for which she takes multiple medications. She resumed those medications today. She had halted use of multiple medications while she was on Paxlovid. She uses CPAP at night. Her primary care provider is Devon Stone. Her civilian technician is Dr. Beal in [place]. She is not anticoagulated because she has a watchman device. Allergies and Home Medications Allergies Coded Allergies: Sulfa (Sulfonamide Antibiotics) (Verified Allergy, Unknown, 04/26/19) morphine (Verified Allergy, Unknown, 04/26/19) Patient Home Medication List Home Medication List Reviewed: Yes Acetaminophen (Tylenol 8 Hour) 650 Mg Tablet.er, 1,300 MG PO Q4H, (Reported) Entered as Reported by: DEVON HILL on 01/16/20 1011 Calcium Carbonate (Calcium) 600 Mg Tablet, 600 MG PO DAILY, (Reported) Entered as Reported by: DEVON HILL on 09/21/19 1546 Celecoxib (Celebrex) 200 Mg Capsule, 200 MG PO BID, (Reported) Entered as Reported by: DEVON HILL on 01/16/20 1007 Cephalexin (Cephalexin) 500 Mg Tablet, 500 MG PO TID Prescribed by: JAIRO GALE on 04/06/22 1741 Cholecalciferol (Vitamin D3) (Vitamin D3) 125 Mcg Tablet, 125 MCG PO DAILY, (Reported) Entered as Reported by: DEVON HILL on 09/21/19 1546 Cyclobenzaprine HCl (Cyclobenzaprine HCl) 10 Mg Tablet, 10 MG PO Q8H PRN for SPASMS Prescribed by: EFRAIN URENA on 12/15/21 1556 Digoxin (Lanoxin) 125 Mcg Tablet, 125 MCG PO DAILY, (Reported) Entered as Reported by: DEVON HILL on 09/21/19 1546 Fludrocortisone Acetate (Fludrocortisone Acetate) 0.1 Mg Tab, 0.1 MG PO DAILY Prescribed by: ATIF MARTEL on 01/17/20 1110 Fluticasone Propionate (Fluticasone Propionate) 16 Gm [place].susp, 2 SPRAYS NS DAILY PRN for ALLERGIES, (Reported) Entered as Reported by: MERCED PETERS on 08/15/19 0840 Folic Acid/Mv,Fe,Other Min (One Daily For Women Tablet) 1 Each Tablet, 1 EACH PO DAILY, (Reported) Entered as Reported by: DEVON HILL on 09/07/19 1540 Furosemide (Furosemide) 20 Mg Tablet, 20 MG PO DAILY PRN for FLUID RETENTION, (Reported) Entered as Reported by: DEVON HILL on 01/16/20 1011 Hydrocodone/Acetaminophen (Hydrocodone-Acetamin 5-325 mg) 5 Mg-325 Mg Tablet, 1 TAB PO Q6H PRN for PAIN-MODERATE (5-7) Prescribed by: EFRAIN URENA on 12/15/21 1557 Magnesium Oxide (Magnesium) 400 Mg Tablet, 400 MG PO DAILY, (Reported) Entered as Reported by: DEVON HILL on 09/21/19 1546 Methylprednisolone (Methylprednisolone Dose Pack) 4 Mg Tab.ds.pk, 4 MG PO UD Prescribed by: EFRAIN URENA on 12/15/21 1556 Metoprolol Tartrate (Metoprolol Tartrate) 25 Mg Tablet, 12.5 MG PO 1200,2200, (Reported) Entered as Reported by: MADDISON GALLOWAY on 04/26/19 1805 Nirmatrelvir/Ritonavir (Paxlovid 300-100 mg Pack (Eua)) 300 Mg (150 Mg X 2)-100 Mg Tab.ds.pk, 1 EACH PO BID Prescribed by: Heraclio Johnston on 06/11/22 1432 Paroxetine HCl (Paroxetine HCl) 40 Mg Tablet, 40 MG PO HS, (Reported) Entered as Reported by: DEVON HILL on 01/16/20 1007 Polyethylene Glycol 3350 (Miralax) 17 Gm Powd.pack, 17 GM PO DAILY, (Reported) Entered as Reported by: MERCED PETERS on 04/27/19 0857 Potassium Chloride (Potassium Chloride) 10 Meq Capsule.er, 10 MEQ PO DAILY PRN for WHEN TAKING FUROSEMIDE, (Reported) Entered as Reported by: DEVON HILL on 09/07/19 1546 Prednisone (Prednisone) 20 Mg Tab, 40 MG PO DAILY Prescribed by: JAIRO GALE on 04/06/22 1741 Prednisone (Prednisone) 50 Mg Tab, 50 MG PO DAILY Prescribed by: CATALINA CORBIN MD on 04/22/22 1541 Review of Systems Review of Systems Constitutional: no symptoms reported EENTM: No Symptoms Reported Respiratory: See HPI Cardiovascular: See HPI Gastrointestinal: See HPI, Nausea Genitourinary: No Symptoms Reported Musculoskeletal: no symptoms reported Skin: no symptoms reported Psychiatric/Neurological: No Symptoms Reported Endocrine: No Symptoms Reported Hematologic/Lymphatic: No Symptoms Reported Past Yjyigcc-Qjvwkw-Puefnk Hx Patient Social History Tobacco Use?: No Substance use?: No Alcohol Use?: No Pt feels they are or have been: Unable to obtain Immunizations Up To Date First/Initial COVID19 Vaccinat: january 2022 Second COVID19 Vaccination Juventino: february 2022 Third COVID19 Vaccination Date: february 2022 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[employer] Seasonal Allergies Seasonal Allergies: Yes Past Medical History Surgery/Hospitalization HX: COPD, RA, CHF, AFIB, 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, BILATERAL KNEES, GALLBLADDER,HYST., TONSILS Surgeries: Yes ("MESH IN RECTAL AREA" PER OLD RECORDS; CARDIAC CATH IN [place]) Adenoidectomy, Appendectomy, Cardiac (Watchman device), Gallbladder, Hysterectomy, Oophorectomy, Pacemaker, Rectal, Tonsillectomy Respiratory: Yes (COVID-30 May 2022) Asthma, COPD Cardiac: Yes (SSS,PACEMAKER (MEDTR); CHF; NON-ISCHEMIC CARDIOMYOPATHY;CAD-NO INTERVENTION) Atrial Fibrillation, Cardiomyopathy, Coronary Artery Disease, Heart Attack, High Cholesterol, Hypertension, Irregular Heartbeat, Syncope Neurological: Yes (STROKE WITH RIGHT SIDE WEAKNESS, PER PT) 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 : 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 oz. 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 Norm as Tested Skin: Normal Color, Warm/Dry Focused Exam Lactate Level 06/19/22 18:42: Lactic Acid Level 2.56*H 06/19/22 20:50: Lactic Acid Level 1.80 Lactic Acid Level Laboratory Tests Test 06/19/22 18:42 06/19/22 20:50 Lactic Acid Level 2.56 MMOL/L (0.50-2.00) *H 1.80 MMOL/L (0.50-2.00) Progress/Results/Core Measures Results/Orders Lab Results Laboratory Tests Test 06/19/22 18:39 06/19/22 18:42 06/19/22 18:49 06/19/22 19:01 Range/Units Influenza Type A Antigen NEGATIVE NEGATIVE Influenza Type B Antigen NEGATIVE NEGATIVE White Blood Count 11.3 H 4.3-11.0 10^3/uL Red Blood Count 4.53 3.80-5.11 10^6/uL Hemoglobin 13.9 11.5-16.0 g/dL Hematocrit 42 35-52 % Mean Corpuscular Volume 92 80-99 fL Mean Corpuscular Hemoglobin 31 25-34 pg Mean Corpuscular Hemoglobin Concent 33 32-36 g/dL Red Cell Distribution Width 12.2 10.0-14.5 % Platelet Count 330 130-400 10^3/uL Mean Platelet Volume 10.4 9.0-12.2 fL Immature Granulocyte % (Auto) 2 % Neutrophils (%) (Auto) 68 42-75 % Lymphocytes (%) (Auto) 20 12-44 % Monocytes (%) (Auto) 7 0-12 % Eosinophils (%) (Auto) 2 0-10 % Basophils (%) (Auto) 1 0-10 % Neutrophils # (Auto) 7.7 1.8-7.8 10^3/uL Lymphocytes # (Auto) 2.3 1.0-4.0 10^3/uL Monocytes # (Auto) 0.8 0.0-1.0 10^3/uL Eosinophils # (Auto) 0.2 0.0-0.3 10^3/uL Basophils # (Auto) 0.1 0.0-0.1 10^3/uL Immature Granulocyte # (Auto) 0.2 H 0.0-0.1 10^3/uL Prothrombin Time 13.0 12.2-14.7 SEC INR Comment 0.9 0.8-1.4 Activated Partial Thromboplast Time 41 H 24-35 SEC D-Dimer 0.62 H 0.00-0.49 UG/ML Sodium Level 142 135-145 MMOL/L Potassium Level 4.1 3.6-5.0 MMOL/L Chloride Level 107 98-107 MMOL/L Carbon Dioxide Level 18 L 21-32 MMOL/L Anion Gap 17 H 5-14 MMOL/L Blood Urea Nitrogen 27 H 7-18 MG/DL Creatinine 1.22 0.60-1.30 MG/DL Estimat Glomerular Filtration Rate 47 BUN/Creatinine Ratio 22 Glucose Level 173 H 70-105 MG/DL Lactic Acid Level 2.56 *H 0.50-2.00 MMOL/L Calcium Level 9.4 8.5-10.1 MG/DL Corrected Calcium 9.2 8.5-10.1 MG/DL Magnesium Level 1.8 1.6-2.4 MG/DL Total Bilirubin 0.6 0.1-1.0 MG/DL Aspartate Amino Transf (AST/SGOT) 30 5-34 U/L Alanine Aminotransferase (ALT/SGPT) 30 0-55 U/L Alkaline Phosphatase 136 40-136 U/L Myoglobin 37.1 10.0-92.0 NG/ML Troponin I 0.028 <0.028 NG/ML C-Reactive Protein High Sensitivity 1.55 H 0.00-0.50 MG/DL Total Protein 7.3 6.4-8.2 GM/DL Albumin 4.2 3.2-4.5 GM/DL Procalcitonin 0.03 <0.10 NG/ML B-Type Natriuretic Peptide 206.0 H <100.0 PG/ML Blood Gas Puncture Site L BRACH Blood Gas Patient Temperature 37 Arterial Blood pH 7.36 L 7.37-7.43 Arterial Blood Partial Pressure CO2 41 35-45 MMHG Arterial Blood Partial Pressure O2 115 H 79-93 MMHG Arterial Blood HCO3 23 23-27 MMOL/L Arterial Blood Total CO2 23.8 21.0-31.0 MMOL/L Arterial Blood Oxygen Saturation 99 94-100 % Arterial Blood Base Excess -2.2 -2.5-2.5 MMOL/L Javier Test YES-POS Blood Gas Ventilator Setting NO Blood Gas Inspired Oxygen 30% Test 06/19/22 20:45 06/19/22 20:50 Range/Units Urine Color YELLOW Urine Clarity CLEAR Urine pH 5.0 5-9 Urine Specific [place] 1.020 1.016-1.022 Urine Protein NEGATIVE NEGATIVE Urine Glucose (UA) NEGATIVE NEGATIVE Urine Ketones NEGATIVE NEGATIVE Urine Nitrite NEGATIVE NEGATIVE Urine Bilirubin NEGATIVE NEGATIVE Urine Urobilinogen 0.2 < = 1.0 MG/DL Urine Leukocyte Esterase TRACE H NEGATIVE Urine RBC (Auto) NEGATIVE NEGATIVE Urine RBC NONE /HPF Urine WBC RARE /HPF Urine Crystals NONE /LPF Urine Bacteria NEGATIVE /HPF Urine Casts PRESENT /LPF Urine Hyaline Casts RARE /LPF Urine Mucus NEGATIVE /LPF Urine Culture Indicated CULTURE PENDING Lactic Acid Level 1.80 0.50-2.00 MMOL/L Troponin I < 0.028 <0.028 NG/ML My Orders Orders - REENA HENRIQUEZ MD Cbc With Automated Diff (06/19/22 18:28) Comprehensive Metabolic Panel (06/19/22 18:28) Blood Culture (06/19/22 18:28) Sputum Culture (06/19/22 18:28) Urinalysis (06/19/22 18:28) Urine Culture (06/19/22 18:28) Protime With Inr (06/19/22 18:28) Partial Thromboplastin Time (06/19/22 18:28) Chest 1 View, Ap/Pa Only (06/19/22 18:28) Ed Iv/Invasive Line Start (06/19/22 18:28) Vital Signs Adult Sepsis Patie Q15M (06/19/22 18:28) O2 (06/19/22 18:28) Remove Rings In Anticipation O (06/19/22 18:28) Lactic Acid Analyzer (06/19/22 18:28) Methylprednisolone Sod Succ (Solu-Medrol (06/19/22 18:30) Ondansetron Injection (Zofran Injectio (06/19/22 18:30) Ondansetron Injection (Zofran Injectio (06/19/22 18:28) Methylprednisolone Sod Succ (Solu-Medrol (06/19/22 18:29) Albuterol/Ipra Inhalation Soln (Duoneb I (06/19/22 18:30) Svn Small Volume Nebulizer (06/19/22 18:30) Magnesium (06/19/22 18:34) Ekg Tracing (06/19/22 18:34) Myoglobin Serum (06/19/22 18:34) Monitor-Rhythm Ecg Trace Only (06/19/22 18:34) Lipid Panel (06/20/22 06:00) Fibrin Degradation Products (06/19/22 18:34) Troponin I [place] (06/19/22 18:34) Hs C Reactive Protein (06/19/22 18:35) Procalcitonin (Pct) (06/19/22 18:35) Influenza A & B Antigens (06/19/22 18:35) Arterial Blood Gas (06/19/22 18:52) Bnp [place] (06/19/22 18:57) Arterial Blood Gas (06/19/22 19:21) Albuterol/Ipra Inhalation Soln (Duoneb I (06/19/22 20:19) Albuterol/Ipra Inhalation Soln (Duoneb I (06/19/22 20:30) Svn Small Volume Nebulizer (06/19/22 20:21) Aspirin Chewable Tablet (Baby Aspirin Ch (06/19/22 20:45) Troponin I [place] (06/19/22 21:00) Arterial Blood Draw - Obtain (06/19/22 ) Ketorolac Injection (Toradol Injection) (06/19/22 22:30) Ed Admission (Communication) (06/19/22 22:47) Medications Given in ED Current Medications Medications Dose Ordered Sig/Nicole Route Start Time Stop Time Status Last Admin Dose Admin Albuterol/ Ipratropium 3 ml ONCE ONCE INH 06/19/22 20:30 06/19/22 20:31 DC 06/20/22 01:50 3 ML Aspirin 324 mg ONCE ONCE PO 06/19/22 20:45 06/19/22 20:46 DC 06/19/22 22:35 324 MG Ketorolac Tromethamine 15 mg ONCE ONCE IVP 06/19/22 22:30 06/19/22 22:31 DC 06/19/22 22:35 15 MG Vital Signs/I&O 06/19/22 06/19/22 06/19/22 06/19/22 18:24 18:24 21:53 21:56 Temp 36.0 Pulse 72 60 65 Resp 22 27 22 B/P (MAP) Pulse Ox 97 98 94 95 O2 Delivery Nasal Cannula Nasal Cannula O2 Flow Rate 6.00 30.00 30.00 FiO2 30 Progress Progress Note : Time: 22:31 Progress Note Patient was interviewed and examined promptly on arrival. BiPAP was initiated. She received a DuoNeb treatment with BiPAP. This resulted in significant improvement. She also received Solu-Medrol 125 mg IV. Nitropaste remained on with stable and normal blood pressure. She had minimal chest pain after initial treatment. Initial and repeat troponin were both negative. D-dimer was mini wilmer elevated at 0.62 which was not significant when age-adjusted. Patient received aspirin as part of the chest pain protocol and received Zofran for nausea. Toradol was given for pain. Case was reviewed with Dr. Patel who requested a stepdown bed for admission. eligibility supervisor was able to accommodate this placement. I discussed CODE STATUS with the patient, and she requested to remain full code. Initial ECG Impression Date: Jun 19, 2022 Initial ECG Impression Time: 18:37 Initial ECG Rate: 71 Initial ECG Rhythm: A Fib/Flutter Initial ECG Impression: Atrial Fibrillation Comment Atrial fibrillation with no ST elevation or depression. Rate controlled. No abnormal intervals or axis deviation. Diagnostic Imaging Diagonstic Imaging: Xray Plain Films/CT/US/NM/MRI: chest Comments Chest x-ray viewed by me and report reviewed. See report below: NAME: JACE [facility]ARRISH [facility] REC#: [id number] PT STATUS: REG ER : 1950 PHYSICIAN: REENA HENRIQUEZ MD ADMIT DATE: 06/19/22/ER Signed Date of Exam:06/19/22 CHEST 1 VIEW, AP/PA ONLY INDICATION: Shortness of breath. COMPARISON: Prior examination from 06/11/2022. FINDINGS: There is cardiomegaly. There is mild venous congestion. There is no pleural effusion or pneumothorax. The mediastinum is unremarkable. Pacemaker overlies the right hemithorax. IMPRESSION: Cardiomegaly and mild central pulmonary venous congestion. Dictated by: Dictated on workstation # [id number] Dict: 06/19/221901 Trans: 06/19/221908 [facility] [id number] Interpreted by: CHLOE WU MD Electronically signed by: CHLOE WU MD 06/19/221908 Departure Communication (Admissions) Time/Spoke to Admitting Phy: 20:25 Dr. Patel Impression Primary Impression: Atypical chest pain Additional Impressions: COPD exacerbation Recent COVID-19 infection Disposition: ADMITTED INPATIENT Condition: Improved Admissions Decision to Admit Reason: Admit from ER (General) Decision to Admit/Date: Jun 19, 2022 Time/Decision to Admit Time: 20:25 Departure-Patient Inst. Referrals: DEVON STONE DO (PCP/Family) Primary Care Physician Copy Copies To 1: DEVON STONE JOSHUA T MD Jun 19, 2022 18:51
[2022-06-19 18:52] LABS: BASOPHILS # (AUTO) 0.1 10^3/uL (0.0-0.1); BASOPHILS % (AUTO) 1 % (0-10); EOSINOPHILS # (AUTO) 0.2 10^3/uL (0.0-0.3); EOSINOPHILS % (AUTO) 2 % (0-10); HEMATOCRIT 42 % (35-52); HEMOGLOBIN 13.9 g/dL (11.5-16.0); LYMPHOCYTES # (AUTO) 2.3 10^3/uL (1.0-4.0); LYMPHOCYTES % (AUTO) 20 % (12-44); MEAN CORPUSCULAR HEMOGLOBIN 31 pg (25-34); MEAN CORPUSCULAR HGB CONC 33 g/dL (32-36); MEAN CORPUSCULAR VOLUME 92 fL (80-99); MEAN PLATELET VOLUME 10.4 fL (9.0-12.2); MONOCYTES # (AUTO) 0.8 10^3/uL (0.0-1.0); MONOCYTES % (AUTO) 7 % (0-12); NEUTROPHILS # (AUTO) 7.7 10^3/uL (1.8-7.8); NEUTROPHILS % (AUTO) 68 % (42-75); PLATELET COUNT 330 10^3/uL (130-400); WHITE BLOOD COUNT 11.3 10^3/uL (4.3-11.0)
--- NOTE | 2022-06-19 19:05 | Diagnostic Imaging Report ---
INDICATION: Shortness of breath. COMPARISON: Prior examination from 06/11/2022. FINDINGS: There is cardiomegaly. There is mild venous congestion. There is no pleural effusion or pneumothorax. The mediastinum is unremarkable. Pacemaker overlies the right hemithorax. IMPRESSION: Cardiomegaly and mild central pulmonary venous congestion. Dictated by: Dictated on workstation # [id number]
[2022-06-19 19:10] LABS: FIBRIN DEGRADATION PRODUCTS 0.62 UG/ML (0.00-0.49); INR 0.9 (0.8-1.4)
[2022-06-19 19:14] LABS: ABG BASE EXCESS -2.2 MMOL/L (-2.5-2.5); ABG OXYGEN SATURATION 99 % (94-100); ABG PCO2 41 MMHG (35-45); ABG PH 7.36 (7.37-7.43); ABG PO2 115 MMHG (79-93); ABG TCO2 23.8 MMOL/L (21.0-31.0)
[2022-06-19 19:21] LABS: ALLENS TEST YES-POS; INSPIRED O2 30%; PATIENT TEMP 37; VENTILATOR NO
[2022-06-19 20:00] LABS: ALBUMIN 4.2 GM/DL (3.2-4.5); BILIRUBIN,TOTAL 0.6 MG/DL (0.1-1.0); CALCIUM 9.4 MG/DL (8.5-10.1); CREATININE SERUM 1.22 MG/DL (0.60-1.30); MAGNESIUM 1.8 MG/DL (1.6-2.4); POTASSIUM 4.1 MMOL/L (3.6-5.0); TOTAL PROTEIN 7.3 GM/DL (6.4-8.2)
[2022-06-19] MEDS ORDERED: RT-ALBUTEROL/IPRATROPIUM 3 ML (DUONEB) VIAL ONE (20:19)
[2022-06-19] MEDS ORDERED: ASPIRIN 81 MG CHEW (CHILDREN'S ASA) PO ONE (20:45)
[2022-06-19 20:55] LABS: BILIRUBIN,URINE NEGATIVE (NEGATIVE); CLARITY,URINE CLEAR; COLOR,URINE YELLOW; GLUCOSE, URINE (UA) NEGATIVE (NEGATIVE); KETONES,URINE NEGATIVE (NEGATIVE); LEUKOCYTE ESTERASE ,URINE TRACE (NEGATIVE); NITRITE,URINE NEGATIVE (NEGATIVE); PROTEIN,URINE NEGATIVE (NEGATIVE)
[2022-06-19 21:01] LABS: BACTERIA,URINE NEGATIVE /HPF; HYALINE CASTS, URINE RARE /LPF; WBC,URINE RARE /HPF
[2022-06-19 21:53] VITALS: BP 137/76
[2022-06-19] MEDS ORDERED: KETOROLAC 30 MG/ML VIAL IVP ONE (22:30)
[2022-06-19] MEDS ORDERED: ONDANSETRON 4 MG/2 ML (SDV) Z0FRAN IV PRN (23:45)
[2022-06-19] MEDS ORDERED: diphenhydrAMINE 50 MG/ML INJ (BENADRYL) IVP PRN (23:45)
[2022-06-19] MEDS ORDERED: ONDANSETRON 4 MG (ZOFRAN) ORAL DISSOLVE TAB PO PRN (23:45)
[2022-06-19] MEDS ORDERED: CALCIUM CARBONATE 500 MG (TUMS) TAB.CHEW PO PRN (23:45)
[2022-06-19] MEDS ORDERED: MELATONIN 3 MG TABLET PO PRN (23:45)
[2022-06-19] MEDS ORDERED: cloNIDine 0.1 MG (CATAPRES) TAB PO PRN (23:45)
[2022-06-19] MEDS ORDERED: diphenhydrAMINE 25 MG TAB (BENADRYL) PO PRN (23:45)
[2022-06-19] MEDS ORDERED: BISACODYL 10 MG SUPP (DULCOLAX) PR PRN (23:45)
[2022-06-19] MEDS ORDERED: polyethylene glycoL POWDER 17 GM (MIRALAX) PACK PO PRN (23:45)
[2022-06-19] MEDS ORDERED: HYDROmorphone 2 MG/ML VIAL (DILAUDID) IV PRN (23:45)
[2022-06-19] MEDS ORDERED: ANTACID SUSP 30 ML UDC (MYLANTA) PO PRN (23:45)
[2022-06-19] MEDS ORDERED: MILK OF MAGNESIA 400 MG/5 ML 30 ML UDC PO PRN (23:45)
[2022-06-20] VITALS (8 sets, daily range): BP systolic 125–141; BP diastolic 64–91
[2022-06-20] MEDS: methylPREDNISolone 40 MG/ML (Solu-MEDROL) VIAL IV SCH ×4 (01:04→17:11)
[2022-06-20] MEDS ORDERED: RT-ALBUTEROL/IPRATROPIUM 3 ML (DUONEB) VIAL INH PRN (01:30)
[2022-06-20] MEDS ORDERED: RT-ALBUTEROL/IPRATROPIUM 3 ML (DUONEB) VIAL ONE (01:32)
[2022-06-20 05:30] LABS: BASOPHILS % (AUTO) 0 % (0-10); EOSINOPHILS % (AUTO) 0 % (0-10); HEMATOCRIT 37 % (35-52); HEMOGLOBIN 12.3 g/dL (11.5-16.0); LYMPHOCYTES # (AUTO) 0.6 10^3/uL (1.0-4.0); LYMPHOCYTES % (AUTO) 6 % (12-44); MEAN CORPUSCULAR HEMOGLOBIN 31 pg (25-34); MEAN CORPUSCULAR HGB CONC 33 g/dL (32-36); MEAN CORPUSCULAR VOLUME 92 fL (80-99); MEAN PLATELET VOLUME 10.4 fL (9.0-12.2); MONOCYTES # (AUTO) 0.1 10^3/uL (0.0-1.0); MONOCYTES % (AUTO) 1 % (0-12); NEUTROPHILS # (AUTO) 9.1 10^3/uL (1.8-7.8); NEUTROPHILS % (AUTO) 91 % (42-75); PLATELET COUNT 263 10^3/uL (130-400); WHITE BLOOD COUNT 9.9 10^3/uL (4.3-11.0)
[2022-06-20 05:56] LABS: CHOLESTEROL 142 MG/DL (< 200); HDL CHOLESTEROL 64 MG/DL (40-60); TRIGLYCERIDES 48 MG/DL (<150); VLDL CHOLESTEROL 10 MG/DL (5-40)
--- NOTE | 2022-06-20 06:27 | History & Physical-Hospitalist ---
History of Present Illness HPI/Chief Complaint Chief complaint: Dyspnea requiring BiPAP consistent with acute respiratory failure HPI: This is a 71-year-old female who has a past medical history of COVID a few weeks ago and has continued to decline. She presented to the ER with acute respiratory failure requiring BiPAP and IV steroids. No evidence of any pulmona ry embolism or bacterial pneumonia. Currently she is still a bit tachypneic but improved. Cardiology will be consulted for chest pain. All home meds were restarted. Source: patient Exam Limitations: no limitations Date Seen 06/20/22 Time Seen by a Provider: 11:00 Attending Physician Marco Norwood DO PCP Admitting Physician: Rosaura Patel DO Attending Physician: Rosaura Patel DO Referring Physician Date of Admission Jun 19, 2022 at 22:48 Home Medications & Allergies Home Medications Reviewed patient Home Medication Reconciliation performed by pharmacy medication reconciliations emergency department technician and/or nursing. Patients Allergies have been reviewed. Allergies Allergies Coded Allergies Sulfa (Sulfonamide Antibiotics) (Verified Allergy, Unknown, 04/26/19) morphine (Verified Allergy, Unknown, 04/26/19) Past Ljffilo-Diouuh-Ohhafn Hx Patient Social History Marrital Status: single Employed/Student: retired Tobacco Use?: No Smoking Status: Former Smoker Use of E-Cig and/or Vaping dev: No Substance use?: No Alcohol Use?: No Pt feels they are or have been: No Immunizations Up To Date Date of Influenza Vaccine: May 06, 2019 First/Initial COVID19 Vaccinat: january 2022 Second COVID19 Vaccination Juventino: february 2022 Tetanus Booster (TDap): Unknown Date of Pneumonia Vaccine: Sep 06, 2019 Seasonal Allergies Seasonal Allergies: Yes Current Status status: No status: No Advance Directives: Yes Advance Directive Location: Home Communicates: Verbally Primary Language: Estonian Preferred Spoken Language: Estonian Is interpretation needed?: No Sensory deficits: Vision impairment Implanted or Applied Medical D: Pacemaker Past Medical History Surgeries: Adenoidectomy, Appendectomy, Cardiac (Watchman device), Gallbladder, Hysterectomy, Oophorectomy, Pacemaker, Rectal, Tonsillectomy Asthma, COPD Atrial Fibrillation, Cardiomyopathy, Coronary Artery Disease, Heart Attack, High Cholesterol, Hypertension, Irregular Heartbeat, Syncope 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, 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 Gastroesophageal Reflux Arthritis Hypothyroidsim Anxiety, Bipolar, Depression Blood Disorders: No Family Medical History No Pertinent Family Hx Review of Systems Constitutional: see HPI, malaise, weakness EENTM: no symptoms reported Respiratory: cough, dyspnea on exertion Cardiovascular: chest pain Gastrointestinal: no symptoms reported Genitourinary: no symptoms reported Musculoskeletal: back pain, joint pain Skin: no symptoms reported Psychiatric/Neurological: Anxiety, Depressed All Other Systems Reviewed Negative Unless Noted: Yes Physical Exam Physical Exam Vital Signs Vital Signs - First Documented 06/19/22 06/20/22 18:24 00:02 Temp 36.0 Pulse 72 Resp 22 B/P (MAP) 111/71 Pulse Ox 97 O2 Delivery Nasal Cannula O2 Flow Rate 6.00 FiO2 30 Capillary Refill : Less Than 3 Seconds Height, Weight, BMI Height: '" Weight: lbs. oz. kg; 37.50 BMI Method: General Appearance: Anxious, Chronically ill, Mild Distress Eyes: Right Eye Normal Inspection, Right Eye PERRL HEENT: PERRL/EOMI, TMs Normal, Normal ENT Inspection, Pharynx Normal, Moist Mucous Membranes Neck: Full Range of Motion, Normal Inspection, Non Tender Respiratory: Chest Non Tender, Lungs Clear, No Respiratory Distress, Accessory Muscle Use, Decreased Breath Sounds, Respiratory Distress (Mild) Cardiovascular: Regular Rate, Rhythm, No Edema, No Gallop, No JVD, No Murmur, Normal Peripheral Pulses Gastrointestinal: Normal Bowel Sounds, No Organomegaly, No Pulsatile Mass, Non Tender, Soft Back: Normal Inspection, No CVA Tenderness, No Vertebral Tenderness Extremity: Normal Capillary Refill, Normal Inspection, Normal Range of Motion, Non Tender, No Calf Tenderness, No Pedal Edema Neurologic/Psychiatric: Alert, Oriented x3, No Motor/Sensory Deficits, Normal Mood/Affect Skin: Normal Color, Warm/Dry Lymphatic: No Adenopathy Results Results/Procedures Labs Laboratory Tests 06/19/22 18:42 06/20/22 04:52 Patient resulted labs reviewed. Assessment/Plan Admission Diagnosis Assessment: Acute hypoxic respiratory failure requiring BiPAP Acute exacerbation of COPD Recent COVID Chronic pain Arthritis Atrial fibrillation status post watchman Hypertension CAD CHF? Chronic insomnia Plan: Home meds BiPAP Dr. Vera appreciated Pain control Insomnia treatment Admission Status: Inpatient Order (span 2 midnights) Reason for Inpatient Admission: Acute respiratory failure Diagnosis/Problems Diagnosis/Problems (1) Acute respiratory failure with hypoxia (2) COPD exacerbation (3) Atypical chest pain Status: Acute (4) Dizziness Status: Acute (5) Anxiety (6) Atrial fibrillation ROSAURA PATEL DO Jun 20, 2022 06:27
[2022-06-20] MEDS: inSUlin ASPART (NovoLOG) 1 UNIT/0.01 ML (CHARGE PER UNIT) SC SCH ×4 (06:45→20:53)
[2022-06-20] MEDS: HYDROcodone/APAP 5 MG/325 MG (LORTAB) TAB PO PRN ×3 (06:54→14:41)
[2022-06-20] MEDS: RT-ALBUTEROL/IPRATROPIUM 3 ML (DUONEB) VIAL INH SCH ×5 (08:14→22:35)
[2022-06-20] MEDS: SENNOSIDES 8.6 MG (SENOKOT) TAB PO SCH ×2 (08:52→20:02)
[2022-06-20] MEDS: DOCUSATE SODIUM 100 MG (COLACE) CAP PO SCH ×2 (08:52→20:00)
[2022-06-20] MEDS: ENOXAPARIN 40 MG/0.4 ML (LOVENOX) SYR SC SCH (08:52)
[2022-06-20] MEDS: LORATADINE (CLARITIN) 10 MG TAB PO SCH (08:53)
[2022-06-20] MEDS ORDERED: ASPIRIN 81 MG CHEW (CHILDREN'S ASA) PO SCH (09:00)
[2022-06-20] MEDS ORDERED: FURO20TA4 PO (09:59)
[2022-06-20] MEDS ORDERED: POTA10CA43 PO ×2 (09:59→10:12)
[2022-06-20] MEDS ORDERED: TRAZ-227 PO (10:00)
[2022-06-20] MEDS ORDERED: DILT240T10 PO (10:02)
[2022-06-20] MEDS ORDERED: ATOR20TA66 PO (10:03)
[2022-06-20] MEDS ORDERED: BUME1TAB8 PO (10:04)
[2022-06-20] MEDS ORDERED: ZFR20T PO (10:06)
[2022-06-20] MEDS ORDERED: FLEC50TA PO (10:09)
[2022-06-20] MEDS ORDERED: ASPI-1238 PO (10:10)
[2022-06-20] MEDS ORDERED: FLUTICASONE NASAL SPRAY (FLONASE) 16 GM BTL NS PRN (10:45)
[2022-06-20 12:05] LABS: ALBUMIN 3.7 GM/DL (3.2-4.5); BILIRUBIN,TOTAL 0.7 MG/DL (0.1-1.0); CALCIUM 9.3 MG/DL (8.5-10.1); CREATININE SERUM 1.18 MG/DL (0.60-1.30); POTASSIUM 4.9 MMOL/L (3.6-5.0); TOTAL PROTEIN 6.4 GM/DL (6.4-8.2)
--- NOTE | 2022-06-20 12:24 | Consultation-Cardiology ---
HPI-Cardiology Cardiology Consultation: Date of Consultation 06/20/22 Date of Admission 06/19/22 Attending Physician Devon Norwood DO Admitting Physician Admitting Physician: Rosaura Patel DO Attending Physician: Rosaura Patel DO Consulting Physician BRIDGETT FELIPE JR, MD HPI: Time Seen by a Provider: 12:20 Chief Complaint: REASON FOR CONSULTATION: Possible heart failure. I had the pleasure of seeing Nubia on the cardiac stepdown unit at [facility] in [place], [place] today. She has a history of paroxysmal atrial fibrillation as well as valvular heart disease among several other cardiac and noncardiac issues. She follows with a batch tank controller at [facility] in [place], [place]. About 2 weeks ago she developed COVID infection. She was treated with Paxlovid as an outpatient. When she started the Paxlovid, she was told to stop her cardiac medications due to interactions with Paxlovid and these medications. She initially felt like Paxlovid was helping with the COVID but then over the past week, she has developed intermittent palpitations as well as dyspnea on exertion associated with some chest tightness. These symptoms were initially mild and she did not seek medical attention. However, yesterday she was out walking her dog and became extremely short of breath. She went back home and then she had a syncopal spell while she was sitting on her sofa. When she woke up, a friend had stopped by to visit. She asked her friend to call 911 and she was brought to the emergency room for further evaluation. When I entered the patient's room, she was on BiPAP. She states she uses BiPAP at home for sleep apnea. She was able to remove the BiPAP and speak to me in full sentences to obtain history. She had a Watchman device placed in October due to an intolerance for oral anticoagulation. She states that when she was on oral anticoagulation she would get severe ecchymoses and hematomas on her limbs following very minor injuries. When I saw the patient, she states that her breathing was starting to improve. Her chest discomfort had improved. She has been having some paroxysmal nocturnal dyspnea. She was also having palpitations. She felt as though her atrial fibrillation has been coming and going since she stopped her flecainide 2 weeks ago. She has also had bilateral lower extremity edema. She denies any previous history of deep venous thrombosis or pulmonary embolism. When she was evaluated in the emergency room, she was felt to have possible hear t failure and was admitted to the hospital. A cardiology consultation was then requested. Certain portions of this document may have been dictated utilizing voice recognition technology. Inherent to this technology, typographical and grammatical errors may exist. As much as I am diligent to identify and correct these mistakes, some errors may remain in the document. Review of Systems-Cardiology Review of Systems Other comments Review of 10 organ systems is as per the history of present illness, otherwise negative. XYM-[id number]-Iulhbs Hx Patient Social History Employed/Student: retired Smoking Status: Never a Smoker 2nd Hand Smoke Exposure: No Have you traveled recently?: No Alcohol Use?: No Pt feels they are or have been: No Immunizations Up To Date Date of Pneumonia Vaccine: Sep 06, 2019 Date of Influenza Vaccine: May 06, 2019 Past Medical History PMH As described under Assessment. Family Medical History Family Medical History: Her father suffered a fatal myocardial infarction at the age of 58. Allergies and Home Medications Allergies Coded Allergies: Sulfa (Sulfonamide Antibiotics) (Verified Allergy, Unknown, 04/26/19) morphine (Verified Allergy, Unknown, 04/26/19) Patient Home Medication List Home Medication List Reviewed: Yes Aspirin (Aspirin EC) 81 Mg Tablet.dr, 81 MG PO DAILY, (Reported) Entered as Reported by: REINA ARNOLD on 06/20/22 1010 Last Action: Continued Atorvastatin Calcium (Atorvastatin Calcium) 20 Mg Tablet, 20 PO BID, (Reported) Entered as Reported by: REINA ARNOLD on 06/20/22 1003 Last Action: Continued Bumetanide (Bumetanide) 1 Mg Tablet, 2 MG PO BID, (Reported) Entered as Reported by: REINA ARNOLD on 06/20/22 1004 Last Action: Continued Calcium Carbonate (Calcium) 600 Mg Tablet, 600 MG PO DAILY, (Reported) Entered as Reported by: DEVON HILL on 09/21/19 1546 Last Action: Continued Cholecalciferol (Vitamin D3) (Vitamin D3) 125 Mcg Tablet, 125 MCG PO DAILY, (Reported) Entered as Reported by: DEVON HILL on 09/21/19 1546 Last Action: Continued Diltiazem HCl (Diltiazem ER) 240 Mg Tab.er.24h, 240 MG PO DAILY, (Reported) Entered as Reported by: REINA ARNOLD on 06/20/22 1002 Last Action: Converted Flecainide Acetate (Flecainide Acetate) 50 Mg Tablet, (Reported) Entered as Reported by: REINA ARNOLD on 06/20/22 1009 Last Action: New Order Fluticasone Propionate (Fluticasone Propionate) 16 Gm [place].susp, 2 SPRAYS NS DAILY PRN for ALLERGIES, (Reported) Entered as Reported by: MERCED PETERS on 08/15/19 0840 Last Action: Continued Hydrocodone/Acetaminophen (Hydrocodone-Acetamin 5-325 mg) 5 Mg-325 Mg Tablet, 1 TAB PO Q6H PRN for PAIN-MODERATE (5-7) Prescribed by: EFRAIN URENA on 12/15/21 1557 Last Action: Continued Magnesium Oxide (Magnesium) 400 Mg Tablet, 400 MG PO DAILY, (Reported) Entered as Reported by: DEVON HILL on 09/21/19 1546 Last Action: Converted Paroxetine HCl (Paroxetine HCl) 40 Mg Tablet, 40 MG PO HS, (Reported) Entered as Reported by: DEVON HILL on 01/16/20 1007 Last Action: Converted Polyethylene Glycol 3350 (Miralax) 17 Gm Powd.pack, 17 GM PO DAILY, (Reported) Entered as Reported by: MERCED PETERS on 04/27/19 0857 Last Action: Continued Potassium Chloride (Potassium Chloride) 10 Meq Capsule.er, 20 MEQ PO BID Prescribed by: REINA ARNOLD on 06/20/22 1012 Last Action: Converted Trazodone HCl (Trazodone HCl) 100 Mg Tablet, 100 MG PO HS Prescribed by: REINA ARNOLD on 06/20/22 1000 Last Action: Continued Zafirlukast (Zafirlukast) 20 Mg Tablet, 20 MG PO DAILY, (Reported) Entered as Reported by: REINA ARNOLD on 06/20/22 1006 Last Action: Converted Discontinued Medications Cephalexin (Cephalexin) 500 Mg Tablet, 500 MG PO TID Discontinued Reason: No Longer Taking Prescribed by: JAIRO GALE on 04/06/22 1741 Last Action: Discontinued Digoxin (Lanoxin) 125 Mcg Tablet, 125 MCG PO DAILY, (Reported) Discontinued Reason: No Longer Taking Entered as Reported by: DEVON HILL on 09/21/19 1546 Last Action: Discontinued Folic Acid/Mv,Fe,Other Min (One Daily For Women Tablet) 1 Each Tablet, 1 EACH PO DAILY, (Reported) Discontinued Reason: No Longer Taking Entered as Reported by: DEVON HILL on 09/07/19 1540 Last Action: Discontinued Furosemide (Furosemide) 20 Mg Tablet, 40 MG PO BID Discontinued Reason: No Longer Taking Prescribed by: REINA ARNOLD on 06/20/22 0959 Last Action: Discontinued Methylprednisolone (Methylprednisolone Dose Pack) 4 Mg Tab.ds.pk, 4 MG PO UD Discontinued Reason: No Longer Taking Prescribed by: EFRAIN URENA on 12/15/21 1556 Last Action: Discontinued Metoprolol Tartrate (Metoprolol Tartrate) 25 Mg Tablet, 12.5 MG PO 1200,2200, (Reported) Discontinued Reason: No Longer Taking Entered as Reported by: MADDISON GALLOWAY on 04/26/19 1805 Last Action: Discontinued Nirmatrelvir/Ritonavir (Paxlovid 300-100 mg Pack (Eua)) 300 Mg (150 Mg X 2)-100 Mg Tab.ds.pk, 1 EACH PO BID Discontinued Reason: No Longer Taking Prescribed by: Heraclio Johnston on 06/11/22 1432 Last Action: Discontinued Potassium Chloride (Potassium Chloride) 10 Meq Capsule.er, 10 MEQ PO DAILY PRN for WHEN TAKING FUROSEMIDE, (Reported) Discontinued Reason: Prescription changed Entered as Reported by: DEVON HILL on 09/07/19 1546 Prednisone (Prednisone) 20 Mg Tab, 40 MG PO DAILY Discontinued Reason: No Longer Taking Prescribed by: JAIRO GALE on 04/06/22 1741 Last Action: Discontinued Prednisone (Prednisone) 50 Mg Tab, 50 MG PO DAILY Discontinued Reason: No Longer Taking Prescribed by: CATALINA CORBIN MD on 04/22/22 1541 Last Action: Discontinued Exam Vital Signs Vital Signs Date Time Temp Pulse Resp B/P (MAP) Pulse Ox O2 Delivery O2 Flow Rate FiO2 06/20/22 11:59 36.0 95 20 130/74 (92) 98 NIV Bilevel 30.00 06/20/22 01:11 30 Physical Exam General: Alert. No acute distress. Well nourished and appears stated age. She is obese. She was wearing BiPAP when I entered the room but was able to remove this and converse with me without difficulty. Eye: Extraocular movements are intact. Conjunctivae are clear. There are no xanthelasma. HENT: Normocephalic. Atraumatic. Carotid pulsations 2/2 without bruits. Neck: Jugular venous pressure does not appear elevated. No thyromegaly appreciated. Respiratory: Lungs are clear to auscultation. Respirations are non-labored. Breath sounds are equal. Symmetrical chest wall expansion. Cardiovascular: Normal rate. Irregular rhythm. 2/6 systolic ejection murmur. No gallop. Point of maximal impulse is not appear displaced. Good pulses equal in all extremities. 1+ bilateral pretibial edema. Gastrointestinal: Soft. Normal bowel sounds. Skin: Skin turgor is normal. There is no pallor. Musculoskeletal: No kyphosis or scoliosis appreciated. Neurologic: Alert and oriented to person, place, time. Cranial nerves 3-12 appear grossly intact. The patient has good motor tone strength in the upper and lower extremities bilaterally. Psychiatric: Cooperative. Appropriate mood & affect. Labs Laboratory Tests Test 06/19/22 18:39 06/19/22 18:42 06/19/22 18:49 06/19/22 19:01 Range/Units Influenza Type A Antigen NEGATIVE NEGATIVE Influenza Type B Antigen NEGATIVE NEGATIVE White Blood Count 11.3 H 4.3-11.0 10^3/uL Red Blood Count 4.53 3.80-5.11 10^6/uL Hemoglobin 13.9 11.5-16.0 g/dL Hematocrit 42 35-52 % Mean Corpuscular Volume 92 80-99 fL Mean Corpuscular Hemoglobin 31 25-34 pg Mean Corpuscular Hemoglobin Concent 33 32-36 g/dL Red Cell Distribution Width 12.2 10.0-14.5 % Platelet Count 330 130-400 10^3/uL Mean Platelet Volume 10.4 9.0-12.2 fL Immature Granulocyte % (Auto) 2 % Neutrophils (%) (Auto) 68 42-75 % Lymphocytes (%) (Auto) 20 12-44 % Monocytes (%) (Auto) 7 0-12 % Eosinophils (%) (Auto) 2 0-10 % Basophils (%) (Auto) 1 0-10 % Neutrophils # (Auto) 7.7 1.8-7.8 10^3/uL Lymphocytes # (Auto) 2.3 1.0-4.0 10^3/uL Monocytes # (Auto) 0.8 0.0-1.0 10^3/uL Eosinophils # (Auto) 0.2 0.0-0.3 10^3/uL Basophils # (Auto) 0.1 0.0-0.1 10^3/uL Immature Granulocyte # (Auto) 0.2 H 0.0-0.1 10^3/uL Prothrombin Time 13.0 12.2-14.7 SEC INR Comment 0.9 0.8-1.4 Activated Partial Thromboplast Time 41 H 24-35 SEC D-Dimer 0.62 H 0.00-0.49 UG/ML Sodium Level 142 135-145 MMOL/L Potassium Level 4.1 3.6-5.0 MMOL/L Chloride Level 107 98-107 MMOL/L Carbon Dioxide Level 18 L 21-32 MMOL/L Anion Gap 17 H 5-14 MMOL/L Blood Urea Nitrogen 27 H 7-18 MG/DL Creatinine 1.22 0.60-1.30 MG/DL Estimat Glomerular Filtration Rate 47 BUN/Creatinine Ratio 22 Glucose Level 173 H 70-105 MG/DL Lactic Acid Level 2.56 *H 0.50-2.00 MMOL/L Calcium Level 9.4 8.5-10.1 MG/DL Corrected Calcium 9.2 8.5-10.1 MG/DL Magnesium Level 1.8 1.6-2.4 MG/DL Total Bilirubin 0.6 0.1-1.0 MG/DL Aspartate Amino Transf (AST/SGOT) 30 5-34 U/L Alanine Aminotransferase (ALT/SGPT) 30 0-55 U/L Alkaline Phosphatase 136 40-136 U/L Myoglobin 37.1 10.0-92.0 NG/ML Troponin I 0.028 <0.028 NG/ML C-Reactive Protein High Sensitivity 1.55 H 0.00-0.50 MG/DL Total Protein 7.3 6.4-8.2 GM/DL Albumin 4.2 3.2-4.5 GM/DL Procalcitonin 0.03 <0.10 NG/ML B-Type Natriuretic Peptide 206.0 H <100.0 PG/ML Blood Gas Puncture Site L BRACH Blood Gas Patient Temperature 37 Arterial Blood pH 7.36 L 7.37-7.43 Arterial Blood Partial Pressure CO2 41 35-45 MMHG Arterial Blood Partial Pressure O2 115 H 79-93 MMHG Arterial Blood HCO3 23 23-27 MMOL/L Arterial Blood Total CO2 23.8 21.0-31.0 MMOL/L Arterial Blood Oxygen Saturation 99 94-100 % Arterial Blood Base Excess -2.2 -2.5-2.5 MMOL/L Javier Test YES-POS Blood Gas Ventilator Setting NO Blood Gas Inspired Oxygen 30% Test 06/19/22 20:45 06/19/22 20:50 06/20/22 04:52 06/20/22 06:43 Range/Units Urine Color YELLOW Urine Clarity CLEAR Urine pH 5.0 5-9 Urine Specific [place] 1.020 1.016-1.022 Urine Protein NEGATIVE NEGATIVE Urine Glucose (UA) NEGATIVE NEGATIVE Urine Ketones NEGATIVE NEGATIVE Urine Nitrite NEGATIVE NEGATIVE Urine Bilirubin NEGATIVE NEGATIVE Urine Urobilinogen 0.2 < = 1.0 MG/DL Urine Leukocyte Esterase TRACE H NEGATIVE Urine RBC (Auto) NEGATIVE NEGATIVE Urine RBC NONE /HPF Urine WBC RARE /HPF Urine Crystals NONE /LPF Urine Bacteria NEGATIVE /HPF Urine Casts PRESENT /LPF Urine Hyaline Casts RARE /LPF Urine Mucus NEGATIVE /LPF Urine Culture Indicated CULTURE PENDING Lactic Acid Level 1.80 0.50-2.00 MMOL/L Troponin I < 0.028 <0.028 NG/ML White Blood Count 9.9 4.3-11.0 10^3/uL Red Blood Count 4.02 3.80-5.11 10^6/uL Hemoglobin 12.3 11.5-16.0 g/dL Hematocrit 37 35-52 % Mean Corpuscular Volume 92 80-99 fL Mean Corpuscular Hemoglobin 31 25-34 pg Mean Corpuscular Hemoglobin Concent 33 32-36 g/dL Red Cell Distribution Width 12.0 10.0-14.5 % Platelet Count 263 130-400 10^3/uL Mean Platelet Volume 10.4 9.0-12.2 fL Immature Granulocyte % (Auto) 1 % Neutrophils (%) (Auto) 91 H 42-75 % Lymphocytes (%) (Auto) 6 L 12-44 % Monocytes (%) (Auto) 1 0-12 % Eosinophils (%) (Auto) 0 0-10 % Basophils (%) (Auto) 0 0-10 % Neutrophils # (Auto) 9.1 H 1.8-7.8 10^3/uL Lymphocytes # (Auto) 0.6 L 1.0-4.0 10^3/uL Monocytes # (Auto) 0.1 0.0-1.0 10^3/uL Eosinophils # (Auto) 0.0 0.0-0.3 10^3/uL Basophils # (Auto) 0.0 0.0-0.1 10^3/uL Immature Granulocyte # (Auto) 0.1 0.0-0.1 10^3/uL Sodium Level 139 135-145 MMOL/L Potassium Level 4.9 3.6-5.0 MMOL/L Chloride Level 106 98-107 MMOL/L Carbon Dioxide Level 19 L 21-32 MMOL/L Anion Gap 14 5-14 MMOL/L Blood Urea Nitrogen 32 H 7-18 MG/DL Creatinine 1.18 0.60-1.30 MG/DL Estimat Glomerular Filtration Rate 49 BUN/Creatinine Ratio 27 Glucose Level 290 H 70-105 MG/DL Calcium Level 9.3 8.5-10.1 MG/DL Corrected Calcium 9.5 8.5-10.1 MG/DL Total Bilirubin 0.7 0.1-1.0 MG/DL Aspartate Amino Transf (AST/SGOT) 42 H 5-34 U/L Alanine Aminotransferase (ALT/SGPT) 41 0-55 U/L Alkaline Phosphatase 126 40-136 U/L Total Protein 6.4 6.4-8.2 GM/DL Albumin 3.7 3.2-4.5 GM/DL Triglycerides Level 48 <150 MG/DL Cholesterol Level 142 < 200 MG/DL LDL Cholesterol Direct 63 1-129 MG/DL VLDL Cholesterol 10 5-40 MG/DL HDL Cholesterol 64 H 40-60 MG/DL Glucometer 250 H 70-110 MG/DL Test 06/20/22 10:15 Range/Units Glucometer 268 H 70-110 MG/DL Radiology ECHOCARDIOGRAM (06/20/2022): 1. Left ventricle: The cavity size is normal. There is mild concentric hypertrophy. Systolic function is normal. The estimated ejection fraction is 55- 60%. There were no regional wall motion abnormalities identified. The left ventricular diastolic function is indeterminant due to atrial fibrillation. 2. Right ventricle: Device wire noted in the right ventricle. 3. Left atrium: The left atrium is mildly dilated with a volume index of 37 mL/m. 4. Right atrium: The right atrium is mildly dilated with an area of 19 cm. 5. Aortic valve: There is mild aortic valve sclerosis. There is mild to moderate aortic regurgitation with a pressure halftime of 399 ms. 6. Mitral valve: There is moderate mitral regurgitation. 7. Tricuspid valve: There is moderate tricuspid regurgitation. 8. Pericardium, extracardiac: There is a right pleural effusion. 9. Pulmonary arteries: The estimated pulmonary artery systolic pressure is 47 mmHg assuming a right atrial pressure of 5 mmHg. 10. Compared to the report from the previous study performed on 09/22/2019, the mitral and tricuspid regurgitation as well as the pulmonary hypertension appear less significant on this study but aortic regurgitation was not noted on the previous report. ECG Impression ECG Comment Electrocardiogram from the emergency room on 06/19/2022 shows atrial fibrillation with a ventricular rate of 71 bpm with demand ventricular pacing and nonspecific ST-T wave changes. Diagnosis/Problems Diagnosis/Problems (1) Acute on chronic heart failure with preserved ejection fraction (HFpEF) Assessment & Plan: I suspect she had some decompensation of her heart failure due to stopping her diuretic and other cardiac medications. Bumetanide typically has good bioavailability and gastrointestinal absorption when given orally. I agree with resuming her oral bumetanide. She also has an elevated D- dimer and is somewhat sedentary at home which puts her at risk because of deep venous thrombosis. I have ordered a CT angiogram of the chest. She is currently on prophylactic dosing of enoxaparin. Her home dose of diltiazem has been reordered. Unclear what may be causing her chest tightness. I suspect this could be related to the heart failure but we will proceed with a CT angiogram as noted. (2) Paroxysmal atrial fibrillation Assessment & Plan: She is back in atrial fibrillation. This was probably due to stopping flecainide. Her home dose of diltiazem has been ordered. I will restart her flecainide. She is not on oral anticoagulation because she has a Watchman device. (3) Pulmonary hypertension Assessment & Plan: Her echocardiogram shows pulmonary hypertension that actually appears improved compared to a previous echocardiogram. This is most likely multifactorial due to some underlying pulmonary disease as well as chronic heart failure. She may benefit from home oxygen if she is not already taking this. (4) Complete heart block Assessment & Plan: She has a permanent pacemaker in place that appears to be functioning normally. (5) Aortic regurgitation Assessment & Plan: She has mild to moderate aortic regurgitation. This should not be causing symptoms but will need to be followed. (6) Mitral regurgitation Assessment & Plan: She also has moderate mitral regurgitation which I would not suspect would cause symptoms but will need to be followed in the long run by her regular batch tank controller at the outside facility. (7) Cardiac pacemaker in situ Assessment & Plan: This is monitored by her regular batch tank controller. (8) Stage 3a chronic kidney disease Assessment & Plan: Her renal function will need to be monitored when we resume her diuretic. (9) Primary hypertension Assessment & Plan: Her home dose of diltiazem has been reordered. (10) Mixed hyperlipidemia Assessment & Plan: Continue statin medication. The medication reconciliation showed this was twice daily. I have asked for clarification on this. We do not usually understand medications to be given twice a day. (11) Obesity Assessment & Plan: She needs to work on weight loss. BRIDGETT FELIPE JR, MD Jun 20, 2022 12:24
[2022-06-20] MEDS ORDERED: CATHETER FLUSH 10 ML SYR IV PRN (13:00)
[2022-06-20] MEDS ORDERED: HOLD METFORMIN - RECEIVED CONTRAST 20 ML VIAL IV SCH (13:00)
[2022-06-20] MEDS ORDERED: NS 100 ML (IVPB) BAG IV ONE (13:00)
[2022-06-20] MEDS ORDERED: IOHEXOL 350 MG/ML 100 ML (OMNIPAQUE 350) VIAL IV ONE (13:00)
[2022-06-20] MEDS ORDERED: FLECAINIDE 100 MG (TAMBOCOR) TAB PO ONE (13:10)
--- NOTE | 2022-06-20 13:55 | Diagnostic Imaging Report ---
PROCEDURE: CT angiography of the chest with contrast. TECHNIQUE: Multiple contiguous axial images were obtained through the chest after uneventful bolus administration of intravenous contrast. 3D reconstructed CTA MIP acquisitions were also performed. Auto Exposure Controls were utilized during the CT exam to meet ALARA standards for radiation dose reduction. INDICATION: Chest pain. Elevated D-dimer. FINDINGS: There is adequate opacification of the pulmonary arterial system without findings of a pulmonary artery filling defect or embolism. There is no right ventricular strain. Thoracic aorta demonstrates mild atherosclerosis without evidence of a dissection or aneurysm. There are no CT findings of a suspicious lung nodule or mass. There is no pneumonia or evidence of edema. There is some minimal basilar atelectasis. There are no findings of pathologically enlarged mediastinal, hilar or axillary lymph nodes. There is a pacemaker device in place. There is no filling defect within the left atrium. There is a prior atrial appendage closure device. There is no pericardial collection. The upper abdomen demonstrates no acute process. There are mild degenerative features within the spine without suspicious lytic or blastic lesion. There is no acute fracture. IMPRESSION: 1. No CT angiographic evidence of pulmonary embolism or right ventricular strain. 2. No findings of aortic dissection or aneurysm 3. Minimal atelectasis. Lungs otherwise clear. 4. No pathologic adenopathy 5. No acute osseous abnormality. Dictated by: Dictated on workstation # [id number]
--- NOTE | 2022-06-20 14:07 | Physical Therapy Evaluation ---
PT Evaluation-General Medical Diagnosis Admission Date Jun 19, 2022 at 22:48 Medical Diagnosis: SOA chest pain Onset Date: Jun 19, 2022 Therapy Diagnosis Therapy Diagnosis: limited mobility Precautions Precautions/Isolations: Fall Prevention, Standard Precautions Weight Bear Status Right Lower Extremity: Right Full Weight Bearing Left Lower Extremity: Left Full Weight Bearing Referral Physician: Amanda Reason for Referral: Evaluation/Treatment Medical History Pertinent Medical History: Atrial Fib, Arthritis, CAD, COPD, GERD, Heart Failure, HTN, Hypothroidism, SC Additional Medical History pacemaker, arrhythmia, syncope Current History Admit due to SOA and chest pain. 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 4-Mhttzotmgf-nqlcvlm completes the activity by him/herself with no assistance from a helper. 5-Set-up or Clean-up Assistance-helper sets up or cleans up; patient completes activity. [place] assists only prior to or following the activity. 4-Supervision or Touching Assistance-helper provides verbal cues and/or touching/steadying and/or contact guard assistance as patient completes activity. Assistance may be provided throughout the activity or intermittently. 3-Partial/Moderate Assistance-helper does LESS THAN HALF the effort. [place] lifts, holds or supports trunk or limbs, but provides less than half the effort. 2-Substantial/Maximal Assistance-helper does MORE THAN HALF the effort. [place] lifts or holds trunk or limbs and provides more than half the effort. 1-Echnpjbzo-zxqrjf does ALL the effort. Patient does none of the effort to complete the activity. Or, the assistance of 2 or more helpers is required for the patient to complete the activity. If activity was not attempted, code reason: 7-Patient Refused. 9-Not Applicable-not attempted and the patient did not perform the activity before the current illness, exacerbation or injury. 10-Not Attempted due to Environmental Limitations-(lack of equipment, weather restraints, etc.). 88-Not Attempted due to Medical Conditions or Safety Concerns. Bed Mobility: 6 Transfers (B,C,W/C): 6 Gait: 6 Stairs: 9 Indoor Mobility (Ambulation): Independent Stairs: Not Applicalbe Prior Devices Use: Walker PT Evaluation-Current Subjective Pt reports shortness of breath with all activities. Pain Numeric Pain Scale: 0-No Pain Pt/Family Goals Return home. Objective Patient Orientation: Person, Place, Time, Situation Attachments: Oxygen, IV ROM/Strength ROM Upper Extremities WFL ROM Lower Extremities WFL Strength Upper Extremities WFL Strength Lower Extremities WFL Sensory Vision: Wears Glasses Hearing: Functional Sensation Right Upper Extremit: Intact Sensation Left Upper Extremity: Intact Sensation Right Lower Extremit: Impaired Sensation Left Lower Extremity: Impaired Sensation Lower Extremities Pt notes impaired (B) LE sensation in the plantar surfaces. Transfers Roll Left to Right (QC): 3 Sit to Lying (QC): 3 Lying to Sitting/Side of Bed(Q: 3 Pt planned to ambulate, but had to sit and rest after standing. Pt returned to supine after sitting. Gait Does the Patient Walk?: Yes Mode of Locomotion: Walk Anticipated Mode of Locomotion: Walk Gait Assistive Device: FWW Comments/Gait Description Unable to ambulate today due to dyspnea. 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 Halfway Goals PT Halfway Goals Time Frame: Jul 04, 2022 Roll Left & Right (QC): 4 Sit to Lying (QC): 4 Lying-Sitting on Side/Bed(QC): 4 Sit to Stand (QC): 4 Chair/Osy-es-Ugdcl Xfer(QC): 4 Toilet Transfer (QC): 4 Car Transfer (QC): 4 Does the Patient Walk: Yes Walk 10 feet (QC): 4 Walk 50ft with 2 Turns (QC): 4 Walk 150 ft (QC): 4 PT Plan Problem List Problem List: Activity Tolerance, Functional Strength, Balance, Gait, Transfer, Bed Mobility Treatment/Plan Treatment Plan: Continue Plan of Care Treatment Duration: Jul 04, 2022 Frequency: 6 times per week Estimated Hrs Per Day: .25 hour per day Time Time In: 0840 Time Out: 0900 DATE: Jun 20, 2022 Total Billed Treatment Time: 20 Total Billed Treatment 1, [facility] 20 DELFIN PANTOJA PT Jun 20, 2022 14:07
[2022-06-20] MEDS: KCL 20 MEQ TAB (K-DUR) PO SCH (20:00)
[2022-06-20] MEDS: ZOLPIDEM 5 MG (AMBIEN) TAB PO SCH (20:00)
[2022-06-20] MEDS: FLECAINIDE 100 MG (TAMBOCOR) TAB PO SCH (20:01)
[2022-06-20] MEDS: traZODone 100 MG (DESYREL) TAB PO SCH (20:02)
[2022-06-20] MEDS: MONTELUKAST 10 MG (SINGULAIR) TAB PO SCH (20:02)
[2022-06-20] MEDS: PARoxetine 20 MG (PAXIL) TAB PO SCH (20:02)
[2022-06-20] MEDS: BUMETANIDE 1 MG (BUMEX) TAB PO SCH (20:15)
[2022-06-21] VITALS (8 sets, daily range): BP systolic 122–143; BP diastolic 61–94
[2022-06-21] MEDS: methylPREDNISolone 40 MG/ML (Solu-MEDROL) VIAL IV SCH ×5 (00:23→23:46)
[2022-06-21] MEDS: RT-ALBUTEROL/IPRATROPIUM 3 ML (DUONEB) VIAL INH SCH ×5 (02:34→18:53)
[2022-06-21 06:09] LABS: BASOPHILS % (AUTO) 0 % (0-10); EOSINOPHILS % (AUTO) 0 % (0-10); HEMATOCRIT 42 % (35-52); HEMOGLOBIN 14.1 g/dL (11.5-16.0); LYMPHOCYTES # (AUTO) 0.9 10^3/uL (1.0-4.0); LYMPHOCYTES % (AUTO) 5 % (12-44); MEAN CORPUSCULAR HEMOGLOBIN 31 pg (25-34); MEAN CORPUSCULAR HGB CONC 34 g/dL (32-36); MEAN CORPUSCULAR VOLUME 91 fL (80-99); MEAN PLATELET VOLUME 10.4 fL (9.0-12.2); MONOCYTES # (AUTO) 0.4 10^3/uL (0.0-1.0); MONOCYTES % (AUTO) 2 % (0-12); NEUTROPHILS # (AUTO) 17.7 10^3/uL (1.8-7.8); NEUTROPHILS % (AUTO) 93 % (42-75); PLATELET COUNT 308 10^3/uL (130-400); WHITE BLOOD COUNT 19.1 10^3/uL (4.3-11.0)
--- NOTE | 2022-06-21 06:12 | Progress Note - Hospitalist ---
Subjective HPI/CC On Admission Date Seen by Provider: Jun 21, 2022 Time Seen by Provider: 11:00 Chief complaint: Dyspnea requiring BiPAP consistent with acute respiratory failure HPI: This is a 71-year-old female who has a past medical history of COVID a few weeks ago and has continued to decline. She presented to the ER with acute respiratory failure requiring BiPAP and IV steroids. No evidence of any pulmonary embolism or bacterial pneumonia. Currently she is still a bit tachypneic but improved. Cardiology will be consulted for chest pain. All home meds were restarted. Subjective/Events-last exam Doing better BIPAP most of the time is required IV steroids maintained IV diuresis working very well Mak cath in place Review of Systems Pulmonary: Dyspnea Focused Exam Lactate Level 06/19/22 18:42: Lactic Acid Level 2.56*H 06/19/22 20:50: Lactic Acid Level 1.80 Objective Exam Vital Signs Vital Signs Date Time Temp Pulse Resp B/P (MAP) Pulse Ox O2 Delivery O2 Flow Rate FiO2 06/21/22 15:09 97 Nasal Cannula 6.00 06/21/22 12:52 121 06/21/22 11:39 22 06/21/22 11:38 36.0 125/80 (95) 06/21/22 08:00 30 Capillary Refill : Less Than 3 Seconds General Appearance: Anxious, Chronically ill, Mild Distress Respiratory: Lungs Clear, Normal Breath Sounds, Decreased Breath Sounds Cardiovascular: Regular Rate, Rhythm Neurologic/Psychiatric: Alert, Oriented x3, No Motor/Sensory Deficits, Normal Mood/Affect Results/Procedures Lab Laboratory Tests 06/21/22 05:49 Patient resulted labs reviewed. Assessment/Plan Assessment and Plan Assess & Plan/Chief Complaint Assessment: Acute hypoxic respiratory failure requiring BiPAP Acute exacerbation of COPD Volume overload Recent COVID Chronic pain Arthritis Atrial fibrillation status post watchman Hypertension CAD CHF? Chronic insomnia Plan: Home meds BiPAP Dr. Vera appreciated Pain control Insomnia treatment Diagnosis/Problems Diagnosis/Problems (1) Acute respiratory failure with hypoxia (2) COPD exacerbation (3) Atypical chest pain Status: Acute (4) Dizziness Status: Acute (5) Anxiety (6) Atrial fibrillation KARMEN GONZALES DO Jun 21, 2022 06:12
[2022-06-21 06:36] LABS: ALBUMIN 4.1 GM/DL (3.2-4.5); BILIRUBIN,TOTAL 0.7 MG/DL (0.1-1.0); CALCIUM 9.7 MG/DL (8.5-10.1); CREATININE SERUM 1.28 MG/DL (0.60-1.30); POTASSIUM 3.8 MMOL/L (3.6-5.0); TOTAL PROTEIN 7.2 GM/DL (6.4-8.2)
[2022-06-21] MEDS: inSUlin ASPART (NovoLOG) 1 UNIT/0.01 ML (CHARGE PER UNIT) SC SCH ×4 (06:41→21:07)
[2022-06-21 08:19] LABS: BAND NEUTROPHILS 1 %; BASOPHILS % (MANUAL) 0 %; EOSINOPHILS % (MANUAL) 0 %; LYMPHOCYTES % (MANUAL) 6 %; MONOCYTES % (MANUAL) 3 %; NEUTROPHILS % (MANUAL) 90 %; RBC MORPH NORMAL
[2022-06-21] MEDS: ASPIRIN E.C. 81 MG (ECOTRIN) TAB PO SCH (08:59)
[2022-06-21] MEDS: LORATADINE (CLARITIN) 10 MG TAB PO SCH (08:59)
[2022-06-21] MEDS: ENOXAPARIN 40 MG/0.4 ML (LOVENOX) SYR SC SCH (08:59)
[2022-06-21] MEDS: KCL 20 MEQ TAB (K-DUR) PO SCH ×2 (08:59→20:08)
[2022-06-21] MEDS: BUMETANIDE 1 MG (BUMEX) TAB PO SCH ×2 (08:59→20:08)
[2022-06-21] MEDS: MAGNESIUM OXIDE (MAG-OX)400 MG TAB PO SCH (08:59)
[2022-06-21] MEDS: CALCIUM CARBONATE 600 MG (CALCARB) TAB PO SCH (08:59)
[2022-06-21] MEDS: FLECAINIDE 100 MG (TAMBOCOR) TAB PO SCH ×2 (09:00→20:08)
[2022-06-21] MEDS: polyethylene glycoL POWDER 17 GM (MIRALAX) PACK PO SCH (09:00)
[2022-06-21] MEDS ORDERED: ZAFIRLUKAST 20 MG PO SCH (09:00)
[2022-06-21] MEDS: DOCUSATE SODIUM 100 MG (COLACE) CAP PO SCH ×2 (09:00→20:08)
[2022-06-21] MEDS: SENNOSIDES 8.6 MG (SENOKOT) TAB PO SCH ×2 (09:00→20:08)
[2022-06-21] MEDS: VITAMIN D3 125 MCG (5,000 UNITS) CAPSULE PO SCH (09:00)
[2022-06-21] MEDS ORDERED: BUMETANIDE 1 MG/4 ML (BUMEX) VIAL IV ONE (10:15)
[2022-06-21] MEDS ORDERED: PANTOPRAZOLE 40 MG (PROTONIX) TAB PO ONE (10:15)
--- NOTE | 2022-06-21 10:16 | Cardiology Progress Note ---
Progress Note-Cardiology Events since last exam Date Seen by Provider: Jun 21, 2022 Time Seen by Provider: 10:10 Events since last exam I am following her due to heart failure and atrial fibrillation. She still feels fairly short of breath and has been using BiPAP which helps. She also complains of chest tightness with and without the shortness of breath. She has had this chest discomfort in the past. She does not recall ever having a stress test although when I looked back in our records she had a nuclear stress test on 01/15/2022 that was normal. She denies palpitations, syncope, or ankle edema. Certain portions of this document may have been dictated utilizing voice recognition technology. Inherent to this technology, typographical and grammatical errors may exist. As much as I am diligent to identify and correct these mistakes, some errors may remain in the document. Vitals Last set of Vitals Signs Vital Signs 06/21/22 06/21/22 06/21/22 07:33 07:49 08:00 Temp 36.0 Pulse 86 Resp 22 B/P (MAP) 125/70 (88) Pulse Ox 99 O2 Delivery NIV Bilevel O2 Flow Rate 21.00 FiO2 30 Labs Labs Laboratory Tests 06/21/22 05:49 Exam Vital Signs Vital Signs Date Time Temp Pulse Resp B/P (MAP) Pulse Ox O2 Delivery O2 Flow Rate FiO2 06/21/22 08:00 99 NIV Bilevel 30 06/21/22 07:49 86 22 21.00 06/21/22 07:33 36.0 125/70 (88) Physical Exam General: Alert. No acute distress. She is obese. She is wearing oxygen by nasal cannula. Eye: No xanthelasma. HENT: Normocephalic. Neck: Jugular venous pressure does not appear elevated. Respiratory: Lungs have some faint scattered wheezes bilaterally. Respirations are non-labored. Breath sounds are equal. Symmetrical chest wall expansion. Cardiovascular: Normal rate. Irregular rhythm. Distant S1/S2. No murmur. No gallop. No edema. Gastrointestinal: Soft. Normal bowel sounds. Skin: Warm. Dry. Neurologic: Alert and oriented to person, place, time. Cranial nerves 3-11 grossly intact. Psychiatric: Cooperative. Appropriate mood & affect. Labs Laboratory Tests Test 06/20/22 10:15 06/20/22 15:35 06/20/22 20:36 06/21/22 05:49 Range/Units Glucometer 268 H 273 H 366 H 70-110 MG/DL White Blood Count 19.1 H 4.3-11.0 10^3/uL Red Blood Count 4.56 3.80-5.11 10^6/uL Hemoglobin 14.1 11.5-16.0 g/dL Hematocrit 42 35-52 % Mean Corpuscular Volume 91 80-99 fL Mean Corpuscular Hemoglobin 31 25-34 pg Mean Corpuscular Hemoglobin Concent 34 32-36 g/dL Red Cell Distribution Width 12.0 10.0-14.5 % Platelet Count 308 130-400 10^3/uL Mean Platelet Volume 10.4 9.0-12.2 fL Immature Granulocyte % (Auto) 1 % Neutrophils (%) (Auto) 93 H 42-75 % Lymphocytes (%) (Auto) 5 L 12-44 % Monocytes (%) (Auto) 2 0-12 % Eosinophils (%) (Auto) 0 0-10 % Basophils (%) (Auto) 0 0-10 % Neutrophils # (Auto) 17.7 H 1.8-7.8 10^3/uL Lymphocytes # (Auto) 0.9 L 1.0-4.0 10^3/uL Monocytes # (Auto) 0.4 0.0-1.0 10^3/uL Eosinophils # (Auto) 0.0 0.0-0.3 10^3/uL Basophils # (Auto) 0.0 0.0-0.1 10^3/uL Immature Granulocyte # (Auto) 0.1 0.0-0.1 10^3/uL Neutrophils % (Manual) 90 % Lymphocytes % (Manual) 6 % Monocytes % (Manual) 3 % Eosinophils % (Manual) 0 % Basophils % (Manual) 0 % Band Neutrophils 1 % Blood Morphology Comment NORMAL Sodium Level 142 135-145 MMOL/L Potassium Level 3.8 3.6-5.0 MMOL/L Chloride Level 100 98-107 MMOL/L Carbon Dioxide Level 26 21-32 MMOL/L Anion Gap 16 H 5-14 MMOL/L Blood Urea Nitrogen 28 H 7-18 MG/DL Creatinine 1.28 0.60-1.30 MG/DL Estimat Glomerular Filtration Rate 45 BUN/Creatinine Ratio 22 Glucose Level 249 H 70-105 MG/DL Calcium Level 9.7 8.5-10.1 MG/DL Corrected Calcium 9.6 8.5-10.1 MG/DL Total Bilirubin 0.7 0.1-1.0 MG/DL Aspartate Amino Transf (AST/SGOT) 27 5-34 U/L Alanine Aminotransferase (ALT/SGPT) 49 0-55 U/L Alkaline Phosphatase 129 40-136 U/L Total Protein 7.2 6.4-8.2 GM/DL Albumin 4.1 3.2-4.5 GM/DL Diagnosis/Problems Diagnosis/Problems (1) Acute on chronic heart failure with preserved ejection fraction (HFpEF) Assessment & Plan: I suspect she had some decompensation of her heart failure due to stopping her diuretic and other cardiac medications. Bumetanide typically has good bioavailability and gastrointestinal absorption when given orally. Since she still feels short of breath, I will give her 1 dose of IV bumetanide today. She underwent a CT angiogram of the chest that did not show any evidence of pulmonary emboli, aortic disease or pulmonary infiltrate or heart failure. (2) Paroxysmal atrial fibrillation Assessment & Plan: She is back in atrial fibrillation. This was probably due to stopping flecainide. I restarted her flecainide and diltiazem. She is not on oral anticoagulation because she has a Watchman device. (3) Chest pain Assessment & Plan: Etiology unclear. She has had this in the past. She denies a history of esophageal reflux disease. As above, she did have a nuclear stress test in 2019 that was normal. I will start her on a proton pump inhibitor to see if this helps with the chest discomfort. If she continues to have chest discomfort, we may need to consider a repeat stress test. (4) Pulmonary hypertension Assessment & Plan: Her echocardiogram from this admission showed pulmonary hypertension that actually appears improved compared to a previous echocardiogram. This is most likely multifactorial due to some underlying pulmonary disease as well as chronic heart failure. She may benefit from home oxygen if she is not already using this at home. As above, she had a CT angiogram that did not show any evidence of pulmonary embolism. (5) Complete heart block Assessment & Plan: She has a permanent pacemaker in place that appears to be functioning normally. (6) Aortic regurgitation Assessment & Plan: She has mild to moderate aortic regurgitation. This should not be causing symptoms but will need to be followed by her regular master automotive technician following discharge. (7) Mitral regurgitation Assessment & Plan: She also has moderate mitral regurgitation which I would not suspect would cause symptoms but will need to be followed in the long run by her regular master automotive technician at the outside facility. (8) Cardiac pacemaker in situ Assessment & Plan: This is monitored by her regular master automotive technician. (9) Stage 3a chronic kidney disease Assessment & Plan: Her renal function will need to be monitored closely now that she is back on her diuretic. (10) Primary hypertension Assessment & Plan: Her blood pressures are reasonably controlled on her home dose of diltiazem. (11) Mixed hyperlipidemia Assessment & Plan: Continue statin medication. The medication reconciliation showed this was twice daily. I have asked for clarification on this. We do not usually understand medications to be given twice a day. I have ordered this for once daily. (12) Obesity Assessment & Plan: She needs to work on weight loss. BRIDGETT FELIPE JR, MD Jun 21, 2022 10:16
[2022-06-21] MEDS: HYDROcodone/APAP 5 MG/325 MG (LORTAB) TAB PO PRN ×2 (10:35→16:27)
[2022-06-21] MEDS: hydrOXYzine (VISTARIL/ATARAX) 25 MG capsule/tablet PO PRN ×2 (13:26→20:14)
[2022-06-21] MEDS: PARoxetine 20 MG (PAXIL) TAB PO SCH (20:07)
[2022-06-21] MEDS: MONTELUKAST 10 MG (SINGULAIR) TAB PO SCH (20:07)
[2022-06-21] MEDS: traZODone 100 MG (DESYREL) TAB PO SCH (20:08)
[2022-06-21] MEDS: ZOLPIDEM 5 MG (AMBIEN) TAB PO SCH (20:08)
[2022-06-22] VITALS (13 sets, daily range): BP systolic 107–154; BP diastolic 67–116
[2022-06-22] MEDS: RT-ALBUTEROL/IPRATROPIUM 3 ML (DUONEB) VIAL INH SCH ×5 (03:04→21:14)
[2022-06-22] MEDS: methylPREDNISolone 40 MG/ML (Solu-MEDROL) VIAL IV SCH ×2 (05:13→20:08)
[2022-06-22] MEDS: inSUlin ASPART (NovoLOG) 1 UNIT/0.01 ML (CHARGE PER UNIT) SC SCH (05:24)
[2022-06-22 05:38] LABS: BASOPHILS % (AUTO) 0 % (0-10); EOSINOPHILS % (AUTO) 0 % (0-10); HEMATOCRIT 45 % (35-52); HEMOGLOBIN 15.3 g/dL (11.5-16.0); LYMPHOCYTES # (AUTO) 0.9 10^3/uL (1.0-4.0); LYMPHOCYTES % (AUTO) 4 % (12-44); MEAN CORPUSCULAR HEMOGLOBIN 31 pg (25-34); MEAN CORPUSCULAR HGB CONC 34 g/dL (32-36); MEAN CORPUSCULAR VOLUME 91 fL (80-99); MONOCYTES # (AUTO) 0.4 10^3/uL (0.0-1.0); MONOCYTES % (AUTO) 2 % (0-12); NEUTROPHILS # (AUTO) 18.2 10^3/uL (1.8-7.8); NEUTROPHILS % (AUTO) 93 % (42-75); PLATELET COUNT 319 10^3/uL (130-400); WHITE BLOOD COUNT 19.7 10^3/uL (4.3-11.0)
[2022-06-22 05:59] LABS: ALBUMIN 4.1 GM/DL (3.2-4.5); BILIRUBIN,TOTAL 0.6 MG/DL (0.1-1.0); CALCIUM 9.6 MG/DL (8.5-10.1); CREATININE SERUM 1.5 MG/DL (0.60-1.30); POTASSIUM 3.6 MMOL/L (3.6-5.0); TOTAL PROTEIN 7.5 GM/DL (6.4-8.2)
--- NOTE | 2022-06-22 08:48 | Physical Therapy Daily Note ---
PT Daily Note-Current Subjective Patient in bed pre tx, agrees to PT, states she has minor pain in chest. Pain Section J - Health Conditions 1. Rarely or not at all 2. Occasionally 3. Frequently 4. Almost constantly 8. 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 Mental Status Patient Orientation: Person, Place, Situation Attachments: SCD's, Oxygen Transfers SCALE: Activities may be completed with or without assistive devices. 9-Fcmkzkqvku-sindnko completes the activity by him/herself with no assistance from a helper. 5-Set-up or Clean-up Assistance-helper sets up or cleans up; patient completes activity. [place] assists only prior to or following the activity. 4-Supervision or Touching Assistance-helper provides verbal cues and/or touching/steadying and/or contact guard assistance as patient completes activity. Assistance may be provided throughout the activity or intermittently. 3-Partial/Moderate Assistance-helper does LESS THAN HALF the effort. [place] lifts, holds or supports trunk or limbs, but provides less than half the effort. 2-Substantial/Maximal Assistance-helper does MORE THAN HALF the effort. [place] lifts or holds trunk or limbs and provides more than half the effort. 0-Obkltgrbv-zdsamf does ALL the effort. Patient does none of the effort to complete the activity. Or, the assistance of 2 or more helpers is required for the patient to complete the activity. If activity was not attempted, code reason: 7-Patient Refused. 9-Not Applicable-not attempted and the patient did not perform the activity before the current illness, exacerbation or injury. 10-Not Attempted due to Environmental Limitations-(lack of equipment, weather restraints, etc.). 88-Not Attempted due to Medical Conditions or Safety Concerns. Roll Left & Right (QC): 6 Sit to Lying (QC): 6 Lying to Sitting/Side of Bed(Q: 6 Sit to Stand (QC): 4 CGA for sit to stand, cues for hand placement Weight Bearing Right Lower Extremity: Right Full Weight Bearing Left Lower Extremity: Left Full Weight Bearing Gait Training Distance: 20' Walk 10 feet (QC): 4 Gait Persons Needed: 1 Gait Assistive Device: FWW slow ambulation, tentative steps, had one LOB requiring slight steadying assist. Exercises Supine Ex: Ankle pumps, Heel Slides Supine Reps: 20 Treatments bed mobility and transfers, ambulation, LE ROM Assessment Current Status: Fair Progress O2 was at 96% post ambulation, she was fairly SOB after ambulation but recovered quickly after laying back down. 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 Mcfp Goals PT Mcfp Goals Time Frame: Jul 04, 2022 Roll Left & Right (QC): 4 Sit to Lying (QC): 4 Lying-Sitting on Side/Bed(QC): 4 Sit to Stand (QC): 4 Chair/Egw-hm-Bgica Xfer(QC): 4 Toilet Transfer (QC): 4 Car Transfer (QC): 4 Does the Patient Walk: Yes Walk 10 feet (QC): 4 Walk 50ft with 2 Turns (QC): 4 Walk 150 ft (QC): 4 PT Plan Problem List Problem List: Activity Tolerance, Functional Strength, Safety, Balance, Gait, Transfer, Bed Mobility, ROM Treatment/Plan Treatment Plan: Continue Plan of Care Treatment Plan: Bed Mobility, Education, Functional Activity Luz, Functional Strength, Gait, Safety, Therapeutic Exercise, Transfers Treatment Duration: Jul 04, 2022 Frequency: 6 times per week Estimated Hrs Per Day: .25 hour per day Safety Risks/Education Patient Education: Gait Training, Transfer Techniques, Correct Positioning, Safety Issues Teaching Recipient: Patient Teaching Methods: Demonstration, Handout, Discussion Response to Teaching: Reinforcement Needed Time Time In: 818 Time Out: 829 DATE: Jun 22, 2022 Total Billed Treatment Time: 11 Total Billed Treatment 1 visit FA AUTUMN GANDHI PT Jun 22, 2022 08:48
[2022-06-22] MEDS: BUMETANIDE 1 MG (BUMEX) TAB PO SCH ×2 (09:02→20:08)
[2022-06-22] MEDS: LORATADINE (CLARITIN) 10 MG TAB PO SCH (09:02)
[2022-06-22] MEDS: ASPIRIN E.C. 81 MG (ECOTRIN) TAB PO SCH (09:03)
[2022-06-22] MEDS: polyethylene glycoL POWDER 17 GM (MIRALAX) PACK PO SCH (09:03)
[2022-06-22] MEDS: ENOXAPARIN 40 MG/0.4 ML (LOVENOX) SYR SC SCH (09:03)
[2022-06-22] MEDS: KCL 20 MEQ TAB (K-DUR) PO SCH ×2 (09:03→20:09)
[2022-06-22] MEDS: CALCIUM CARBONATE 600 MG (CALCARB) TAB PO SCH (09:03)
[2022-06-22] MEDS: DOCUSATE SODIUM 100 MG (COLACE) CAP PO SCH ×2 (09:03→20:10)
[2022-06-22] MEDS: VITAMIN D3 125 MCG (5,000 UNITS) CAPSULE PO SCH (09:03)
[2022-06-22] MEDS: FLECAINIDE 100 MG (TAMBOCOR) TAB PO SCH ×2 (09:03→20:09)
[2022-06-22] MEDS: PANTOPRAZOLE 40 MG (PROTONIX) TAB PO SCH (09:04)
[2022-06-22] MEDS: SENNOSIDES 8.6 MG (SENOKOT) TAB PO SCH ×2 (09:04→20:10)
[2022-06-22] MEDS: MAGNESIUM OXIDE (MAG-OX)400 MG TAB PO SCH (09:04)
[2022-06-22] MEDS: HYDROcodone/APAP 5 MG/325 MG (LORTAB) TAB PO PRN (09:15)
--- NOTE | 2022-06-22 09:33 | Diagnostic Imaging Report ---
INDICATION: Cough. Chest tightness. COMPARISON: 06/19/2022 FINDINGS: Single frontal view of the chest demonstrates normal heart size and pulmonary vascularity. Right-sided single lead pacemaker is present. The lungs are well aerated and clear. No large pleural effusion or pneumothorax is seen. The visualized osseous structures show no acute abnormalities. IMPRESSION: 1. No acute cardiopulmonary process. Dictated by: Dictated on workstation # [id number]
--- NOTE | 2022-06-22 09:48 | Cardiology Progress Note ---
Progress Note-Cardiology Events since last exam Date Seen by Provider: Jun 22, 2022 Time Seen by Provider: 09:46 Events since last exam I am following her due to heart failure and atrial fibrillation. Her breathing is better but still not back to her baseline. She denies chest discomfort, palpitations, or syncope. She has mild ankle edema. After I saw her this morning, she apparently became difficult to arouse and had weakness of the right leg and was transferred to the intensive care unit. Certain portions of this document may have been dictated utilizing voice recognition technology. Inherent to this technology, typographical and grammatical errors may exist. As much as I am diligent to identify and correct these mistakes, some errors may remain in the document. Vitals Last set of Vitals Signs Vital Signs 06/21/22 06/22/22 06/22/22 08:00 16:00 16:21 Temp 36.0 Pulse 87 Resp 18 B/P (MAP) 131/100 Pulse Ox 93 O2 Delivery NIV Bilevel O2 Flow Rate 21.00 FiO2 30 Labs Labs Laboratory Tests 06/22/22 05:30 Exam Vital Signs Vital Signs Date Time Temp Pulse Resp B/P (MAP) Pulse Ox O2 Delivery O2 Flow Rate FiO2 06/22/22 16:21 87 18 131/100 93 06/22/22 16:00 36.0 06/22/22 16:00 NIV Bilevel 21.00 06/21/22 08:00 30 Physical Exam General: Alert. No acute distress. She is wearing oxygen by nasal cannula. She is obese. Eye: No xanthelasma. HENT: Normocephalic. Neck: Jugular venous pressure does not appear elevated. Respiratory: Lungs are clear to auscultation but decreased at the bases bilaterally. Respirations are non-labored. Breath sounds are equal. Symmetrical chest wall expansion. Cardiovascular: Normal rate. Irregular rhythm. Distant S1/S2. No murmur. No gallop. Trace bilateral pretibial edema. Gastrointestinal: Soft. Normal bowel sounds. Skin: Warm. Dry. Neurologic: Alert and oriented to person, place, time. Cranial nerves 3-11 grossly intact. Psychiatric: Cooperative. Appropriate mood & affect. Labs Laboratory Tests Test 06/21/22 21:03 06/22/22 05:16 06/22/22 05:30 06/22/22 10:29 Range/Units Glucometer 335 H 328 H 410 *H 70-110 MG/DL White Blood Count 19.7 H 4.3-11.0 10^3/uL Red Blood Count 4.99 3.80-5.11 10^6/uL Hemoglobin 15.3 11.5-16.0 g/dL Hematocrit 45 35-52 % Mean Corpuscular Volume 91 80-99 fL Mean Corpuscular Hemoglobin 31 25-34 pg Mean Corpuscular Hemoglobin Concent 34 32-36 g/dL Red Cell Distribution Width 12.1 10.0-14.5 % Platelet Count 319 130-400 10^3/uL Mean Platelet Volume 10.0 9.0-12.2 fL Immature Granulocyte % (Auto) 1 % Neutrophils (%) (Auto) 93 H 42-75 % Lymphocytes (%) (Auto) 4 L 12-44 % Monocytes (%) (Auto) 2 0-12 % Eosinophils (%) (Auto) 0 0-10 % Basophils (%) (Auto) 0 0-10 % Neutrophils # (Auto) 18.2 H 1.8-7.8 10^3/uL Lymphocytes # (Auto) 0.9 L 1.0-4.0 10^3/uL Monocytes # (Auto) 0.4 0.0-1.0 10^3/uL Eosinophils # (Auto) 0.0 0.0-0.3 10^3/uL Basophils # (Auto) 0.0 0.0-0.1 10^3/uL Immature Granulocyte # (Auto) 0.2 H 0.0-0.1 10^3/uL Sodium Level 141 135-145 MMOL/L Potassium Level 3.6 3.6-5.0 MMOL/L Chloride Level 94 L 98-107 MMOL/L Carbon Dioxide Level 29 21-32 MMOL/L Anion Gap 18 H 5-14 MMOL/L Blood Urea Nitrogen 39 H 7-18 MG/DL Creatinine 1.50 H 0.60-1.30 MG/DL Estimat Glomerular Filtration Rate 37 BUN/Creatinine Ratio 26 Glucose Level 324 H 70-105 MG/DL Calcium Level 9.6 8.5-10.1 MG/DL Corrected Calcium 9.5 8.5-10.1 MG/DL Total Bilirubin 0.6 0.1-1.0 MG/DL Aspartate Amino Transf (AST/SGOT) 15 5-34 U/L Alanine Aminotransferase (ALT/SGPT) 41 0-55 U/L Alkaline Phosphatase 127 40-136 U/L Total Protein 7.5 6.4-8.2 GM/DL Albumin 4.1 3.2-4.5 GM/DL Test 06/22/22 10:34 06/22/22 10:50 06/22/22 13:23 06/22/22 14:24 Range/Units Glucometer 414 *H 278 H 215 H 70-110 MG/DL Blood Gas Puncture Site LT RADIAL Blood Gas Patient Temperature 35.3 Arterial Blood pH 7.48 H 7.37-7.43 Arterial Blood Partial Pressure CO2 44 35-45 MMHG Arterial Blood Partial Pressure O2 73 L 79-93 MMHG Arterial Blood HCO3 33 H 23-27 MMOL/L Arterial Blood Total CO2 34.4 H 21.0-31.0 MMOL/L Arterial Blood Oxygen Saturation 97 94-100 % Arterial Blood Base Excess 8.6 H -2.5-2.5 MMOL/L Javier Test YES-POS Blood Gas Ventilator Setting YES Blood Gas Inspired Oxygen 21% Test 06/22/22 15:03 06/22/22 15:38 06/22/22 16:04 06/22/22 16:26 Range/Units Glucometer 171 H 142 H 125 H 127 H 70-110 MG/DL Diagnosis/Problems Diagnosis/Problems (1) Acute on chronic heart failure with preserved ejection fraction (HFpEF) Assessment & Plan: I suspect she had some decompensation of her heart failure due to stopping her diuretic and other cardiac medications. Bumetanide typ ically has good bioavailability and gastrointestinal absorption when given orally. I gave her 1 dose of IV bumetanide on 06/21. She underwent a CT angiogram of the chest that did not show any evidence of pulmonary emboli, aortic disease or pulmonary infiltrate or heart failure. Follow-up chest x-ray from this morning was unremarkable. After I saw her in the morning, she had altered mental status and was transferred to the intensive care unit. The hospitalist is evaluating this. (2) Paroxysmal atrial fibrillation Assessment & Plan: She remains in atrial fibrillation. This was probably due to stopping flecainide. I restarted her flecainide and diltiazem at the time of admission. She is not on oral anticoagulation because she has a Watchman device. I will increase the dose of flecainide to 100 mg twice daily as of today, 06/22. If she remains in atrial fibrillation tomorrow (06/23), then I may consider increasing the dose of flecainide to 150 mg twice daily. (3) Chest pain Assessment & Plan: Etiology unclear. She has had this in the past. She did not report chest discomfort to me in the past 2 days she denies a history of esophageal reflux disease. She did have a nuclear stress test in 2019 that was normal. I started her on a proton pump inhibitor to see if this helps with the chest discomfort. If the chest discomfort recurs, we may need to consider a repeat stress test. (4) Pulmonary hypertension Assessment & Plan: Her echocardiogram from this admission showed pulmonary hypertension that actually appears improved compared to a previous echocardiogram. This is most likely multifactorial due to some underlying pulmonary disease as well as chronic heart failure. She may benefit from home oxygen if she is not already using this at home. As above, she had a CT angiogram that did not show any evidence of pulmonary embolism. (5) Complete heart block Assessment & Plan: She has a permanent pacemaker in place that appears to be functioning normally. (6) Aortic regurgitation Assessment & Plan: She has mild to moderate aortic regurgitation as noted on her echocardiogram from this admission. This should not be causing symptoms but will need to be followed by her regular personal computer network analyst following discharge. (7) Mitral regurgitation Assessment & Plan: She also has moderate mitral regurgitation which I would not suspect would cause symptoms but will need to be followed in the long run by her regular personal computer network analyst at the outside facility. (8) Cardiac pacemaker in situ Assessment & Plan: This is monitored by her regular personal computer network analyst. (9) Stage 3a chronic kidney disease Assessment & Plan: Her renal function will need to be monitored closely now that she is back on her diuretic. (10) Primary hypertension Assessment & Plan: Her blood pressures are reasonably controlled on her home dose of diltiazem. (11) Mixed hyperlipidemia Assessment & Plan: Continue statin medication. The medication reconciliation showed this was twice daily. I have asked for clarification on this. We do not usually give statin medications twice a day. I have ordered this for once daily. (12) Obesity Assessment & Plan: She needs to work on weight loss. BRIDGETT FELIPE JR, MD Jun 22, 2022 09:48
[2022-06-22] MEDS ORDERED: LACTULOSE SYRUP 10GM/15ML (ENULOSE) 30ML UDC PO NR (10:00)
[2022-06-22] MEDS ORDERED: SENNA W/DOCUSATE (SENOKOT S) TABLET PO NR (10:00)
[2022-06-22] MEDS: hydrOXYzine (VISTARIL/ATARAX) 25 MG capsule/tablet PO PRN (10:02)
[2022-06-22] MEDS ORDERED: POTA-179 PO (10:35)
[2022-06-22] MEDS ORDERED: DILT240C91 PO (10:35)
[2022-06-22] MEDS ORDERED: FLEC50TA PO (10:35)
[2022-06-22] MEDS ORDERED: TRAZ-227 PO (10:35)
[2022-06-22] MEDS ORDERED: MULT-1136 PO (10:35)
[2022-06-22] MEDS ORDERED: NS IV 500 ML 500 ML IV PRN (10:45)
[2022-06-22 10:58] LABS: ABG BASE EXCESS 8.6 MMOL/L (-2.5-2.5); ABG OXYGEN SATURATION 97 % (94-100); ABG PCO2 44 MMHG (35-45); ABG PH 7.48 (7.37-7.43); ABG PO2 73 MMHG (79-93); ABG TCO2 34.4 MMOL/L (21.0-31.0)
[2022-06-22 11:15] LABS: ALLENS TEST YES-POS; INSPIRED O2 21%; PATIENT TEMP 35.3; VENTILATOR YES
--- NOTE | 2022-06-22 11:25 | Progress Note - Hospitalist ---
[facility] 06[facility] 1125: Subjective HPI/CC On Admission Chief complaint: Dyspnea requiring BiPAP consistent with acute respiratory failure HPI: This is a 71-year-old female who has a past medical history of COVID a few weeks ago and has continued to decline. She presented to the ER with acute respiratory failure requiring BiPAP and IV steroids. No evidence of any pulmonary embolism or bacterial pneumonia. Currently she is still a bit tachyp neic but improved. Cardiology will be consulted for chest pain. All home meds were restarted. Subjective/Events-last exam Nubia is a 71 y WF who presented to the ED 06/19/22 with SOB and CP diagnosed with acute hypoxic respiratory failure requiring BiPAP, acute exacerbation of COPD, acute on chronic HFpEF. This morning pt c/o cough with yellow sputum and some DE GUZMAN as well as continued CP when she coughs. She had not had a BM since admission and has a wilder in place still producing urine. She went for a walk with PT. Her physical exam was unremarkable this morning except for an irregularly irregular HR as she has afib. She was alert and oriented x3 and had no neurologic complaints. She was on 4L oxygen via [place]. At 1030 Dr. Gonzales was notified that patient was unresponsive and was moved to the ICU from [facility]. Her BP was 140/100s, T 35.3 C and blood sugar was 414. She r eportedly told a tech she was "feeling weird" and then became somnolent and unresponsive. She was placed on BiPAP and was taken to the ICU. ABG 7.48/44/73. EKG revealed atrial flutter with tachycardia. Head CT without evidence of acute intracranial process. Review of Systems unable to obtain 2/2 pt condition Focused Exam Lactate Level 06/19/22 18:42: Lactic Acid Level 2.56*H 06/19/22 20:50: Lactic Acid Level 1.80 Objective Exam Vital Signs Vital Signs Date Time Temp Pulse Resp B/P (MAP) Pulse Ox O2 Delivery O2 Flow Rate FiO2 06/22/22 14:39 91 18 93 21.00 06/22/22 14:21 129/87 06/22/22 13:00 NIV Bilevel 06/22/22 11:54 36.9 06/21/22 08:00 30 Capillary Refill : Less Than 3 Seconds General Appearance: Moderate Distress, Obese HEENT: Other (pupils equal, not reactive to light; pt unable to track my finger) Respiratory: Chest Non Tender, Lungs Clear, Normal Breath Sounds, Other (on BiPAP) Cardiovascular: No Edema, Normal Peripheral Pulses, Irregularly Irregular, Tachycardia Gastrointestinal: Non Tender, Soft Extremity: Normal Capillary Refill Neurologic/Psychiatric: Other (Pt is minimally responsive, able to squeeze my fingers on command and wiggle toes when asked, she is able to open her eyes but not able to track ) Skin: Normal Color, Warm/Dry Lymphatic: No Adenopathy Results/Procedures Lab Laboratory Tests 06/22/22 05:30 Patient resulted labs reviewed. Assessment/Plan Assessment and Plan Assess & Plan/Chief Complaint Assessment: Altered Mental Status- ?encepholapthy from steroids Tachycardia Elevated blood glucose Acute hypoxic respiratory failure requiring BiPAP Acute exacerbation of COPD Acute on chronic HFpEF Volume overload Recent COVID Chronic pain Arthritis Atrial fibrillation status post watchman Hypertension CAD Chronic insomnia Plan: Head CT had no evidence of acute intracranial process Start insulin CXR ordered BiPAP Home meds Dr. Vera appreciated Consult KARMEN Barton DO 06/23/22 0508: Assessment/Plan Assessment and Plan Assess & Plan/Chief Complaint Transfer to ICU Spoke with Dr. Jansen CT scan reviewed Supervisory-Addendum Brief Verification & Attestation Participated in pt care: history, MDM, physical Personally performed: exam, history, MDM, supervision of care Care discussed with: Medical Student Procedures: n/a Results interpretation: Verified all documentation Verification and Attestation of Medical Student E/M Service A medical student performed and documented this service in my presence. I reviewed and verified all information documented by the medical student and made modifications to such information, when appropriate. I personally performed the physical exam and medical decision making. Karmen Gonzales, Jun 23, 2022,05:07 CLEO NOLASCO Jun 22, 2022 11:25 KARMEN GONZALES DO Jun 23, 2022 05:08
--- NOTE | 2022-06-22 11:40 | Diagnostic Imaging Report ---
CLINICAL INDICATION: Rule out stroke EXAM: Axial CT scan of the brain performed without IV contrast. High-resolution axial CT brain images with sagittal and coronal reformations were also created. Auto Exposure Controls were utilized during the CT exam to meet ALARA standards for radiation dose reduction. COMPARISON: None. FINDINGS: There is skull streak artifact which obscures portions of the brainstem, posterior fossa, and portions of the brain near the skull. There is no CT evidence of acute cerebral infarct, intracranial hemorrhage, brain herniation or midline shift. There are patchy areas of low-attenuation white matter changes involving both cerebral hemispheres, likely representing chronic small vessel ischemic disease. There is brain parenchymal volume loss. There is no hydrocephalus. Basal cisterns are unremarkable. Extracranial soft tissue, skull, and orbits are unremarkable. Paranasal sinuses and mastoid air cells are clear. IMPRESSION: There is no interval CT evidence of acute intracranial process. Results of this report discussed with Dr. Rosaura Patel via the telephone on 06/22/2022 at 1137 hours. Dictated by: Dictated on workstation # [id number]
--- NOTE | 2022-06-22 11:49 | Tele-ICU Consult ---
History of Present Illness History of Present Illness Date Seen by Provider: Jun 22, 2022 Time Seen by Provider: 11:43 History of Present Illness eICU critical care consult 71 yo F brought to ICU for AMS. Pt originally admitted on in acute resp failure-has COPD, placed on BiPAP and improved. Also has HFpEF Brought to MICU due to AMS, glu 414, ABG 7.48/44/73. Has chronic a fib and is on Lovenox 40 SQ/d, Had Watchman procedure done due to intolerance to OAC's Moved to MICU and sent to CT head which shows no acute process. Spoke with RN who sees pt is using right side Spoke with attending who knows pt well, and feels Sx more likely to be encepholapthy from steroids EKG showed a flutter with tachycardia Allergies and Home Medications Allergies Coded Allergies: Sulfa (Sulfonamide Antibiotics) (Verified Allergy, Unknown, 04/26/19) morphine (Verified Allergy, Unknown, 04/26/19) Home Medications Aspirin 81 Mg Tablet.dr, 81 MG PO DAILY, (Reported) Atorvastatin Calcium 20 Mg Tablet, 20 MG PO DAILY, (Reported) Bumetanide 1 Mg Tablet, 1 MG PO DAILY, (Reported) Calcium Carbonate 600 Mg Tablet, 600 MG PO DAILY, (Reported) Diltiazem HCl 240 Mg Cap.er.24h, 240 MG PO DAILY, (Reported) Flecainide Acetate 50 Mg Tablet, 100 MG PO DAILY, (Reported) TAKES 2 (50MG) TABS Flecainide Acetate 50 Mg Tablet, 50 MG PO HS, (Reported) Fluticasone Propionate 16 Gm [place].susp, 2 SPRAYS NS DAILY PRN for ALLERGIES, (Reported) Multivitamin 1 Each Tablet, 1 EACH PO DAILY, (Reported) Paroxetine HCl 40 Mg Tablet, 40 MG PO DAILY, (Reported) Polyethylene Glycol 3350 17 Gram Powd.pack, 17 GM PO BID PRN for CONSTIPATION- 2ND LINE, (Reported) Potassium Chloride 20 Meq Tab.er.prt, 20 MEQ PO DAILY, (Reported) Trazodone HCl 100 Mg Tablet, 100 MG PO HS, (Reported) Zafirlukast 20 Mg Tablet, 20 MG PO DAILY, (Reported) Past Medical/Social/Family Hx Patient Social History Marrital Status: single Employed/Student: retired Tobacco Use?: No Smoking Status: Never a Smoker Use of E-Cig and/or Vaping dev: No Substance use?: No Alcohol Use?: No Pt stated abuse/neglect: No Immunizations Up To Date Influenza Vaccine Up-to-Date: No; Not Current First/Initial COVID19 Vaccinat: january 2022 Second COVID19 Vaccination Ju[place]: february 2022 Tetanus Booster (TDap): Unknown Date of Pneumonia Vaccine: Sep 06, 2019 Current Status status: No status: No Advance Directives: Yes Advance Directive Location: Home Communicates: Verbally Primary Language: Telugu Preferred Spoken Language: Telugu Is interpretation needed?: No Sensory deficits: Vision impairment Implanted or Applied Medical D: Pacemaker Review of Systems Constitutional: see HPI EENTM: see HPI Respiratory: see HPI Cardiovascular: see HPI Gastrointestinal: see HPI Genitourinary: see HPI Musculoskeletal: see HPI Skin: see HPI Psychiatric/Neurological: See HPI Focused Exam Lactate Level 06/19/22 18:42: Lactic Acid Level 2.56*H 06/19/22 20:50: Lactic Acid Level 1.80 Height, Weight, BMI Height: '" Weight: lbs. oz. kg; 37.46 BMI Method: Cardiovascular: Tachycardia Exam Exam Patient acknowledged, consented, and participated in this virtual visit which was conducted using real time audio/video Vital Signs Date Time Temp Pulse Resp B/P (MAP) Pulse Ox O2 Delivery O2 Flow Rate FiO2 06/22/22 10:46 125 18 94 21.00 06/22/22 10:45 154 19 128/101 (110) 94 NIV Bilevel 06/22/22 10:30 101 16 129/116 (120) 96 Nasal Cannula 4.00 06/22/22 09:15 92 15 122/89 (100) 97 Nasal Cannula 4.00 06/22/22 08:00 Nasal Cannula 4.00 06/22/22 08:00 36.0 84 14 134/69 (90) 93 Nasal Cannula 4.00 06/22/22 07:10 79 06/22/22 06:57 96 Nasal Cannula 4.00 06/22/22 03:39 36.8 75 20 107/67 (80) 94 Nasal Cannula 4.00 06/22/22 03:04 98 Nasal Cannula 4.00 06/22/22 01:50 67 06/22/22 01:00 78 06/21/22 23:52 36.0 90 20 126/78 (94) 95 Nasal Cannula 4.00 06/21/22 20:05 Nasal Cannula 4.00 06/21/22 19:51 36.0 90 20 127/76 (93) 95 Nasal Cannula 4.00 06/21/22 19:00 97 06/21/22 18:53 96 Nasal Cannula 4.00 06/21/22 16:00 36.0 100 20 130/61 (84) 93 Nasal Cannula 4.00 06/21/22 15:09 97 Nasal Cannula 6.00 06/21/22 12:52 121 I & O 06/22/22 07:00 Intake Total 2950 ml Output Total 4200 ml Balance -1250 ml Height & Weight Height: '" Weight: lbs. oz. kg; 37.46 BMI Method: General Appearance: Anxious, Chronically ill, Mild Distress HEENT: PERRL/EOMI, TMs Normal, Normal ENT Inspection, Pharynx Normal, Moist Mucous Membranes Neck: Full Range of Motion, Normal Inspection, Non Tender Respiratory: Lungs Clear, Normal Breath Sounds, Decreased Breath Sounds Cardiovascular: Regular Rate, Rhythm Capillary Refill: Less Than 3 Seconds Extremity: Normal Capillary Refill, Normal Inspection, Normal Range of Motion, Non Tender, No Calf Tenderness, No Pedal Edema Neurologic/Psychiatric: Alert, Oriented x3, No Motor/Sensory Deficits, Normal Mood/Affect, Depressed Affect, Disoriented, Other (moves all four extremiteis, ) Skin: Normal Color, Warm/Dry Lymphatic: No Adenopathy Results Lab Laboratory Tests 06/21/22 05:49 06/22/22 05:30 Assessment/Plan Assessment/Plan AMS probably secondary to encephalpathy, will get better control of glucose and see if mental status improves, spoke with Dr Duval-hospitalist who feels pt does not have a focal deficit Critical Care: Critically Ill Patient Time spent with patient (mins): 20 JOSH ROGERS MD Jun 22, 2022 11:49
[2022-06-22] MEDS ORDERED: inSUlin (REGULAR) HUMAN 1 UNIT/0.01 ML (CHARGE PER UNIT) IV ONE ×2 (12:00→12:45)
[2022-06-22] MEDS: NS IV 1000 ML 1,000 ML IV SCH ×2 (12:21→21:25)
--- NOTE | 2022-06-22 13:21 | Occ Therapy Progress Note ---
Therapy Progress Note OT orders received and chart reviewed. Around 1030 this morning, pt transferred to ICU after becoming unresponsive. OT will need new orders to continue treatment. Lashawn Villarreal OT Jun 22, 2022 13:21
[2022-06-22] MEDS: traZODone 100 MG (DESYREL) TAB PO SCH (20:09)
[2022-06-22] MEDS: PARoxetine 20 MG (PAXIL) TAB PO SCH (20:09)
[2022-06-22] MEDS: ZOLPIDEM 5 MG (AMBIEN) TAB PO SCH (20:10)
[2022-06-22] MEDS: MONTELUKAST 10 MG (SINGULAIR) TAB PO SCH (20:10)
[2022-06-23] MEDS: RT-ALBUTEROL/IPRATROPIUM 3 ML (DUONEB) VIAL INH SCH ×4 (03:05→21:16)
[2022-06-23 05:41] LABS: BASOPHILS % (AUTO) 0 % (0-10); EOSINOPHILS % (AUTO) 0 % (0-10); HEMATOCRIT 47 % (35-52); HEMOGLOBIN 15.6 g/dL (11.5-16.0); LYMPHOCYTES # (AUTO) 0.8 10^3/uL (1.0-4.0); LYMPHOCYTES % (AUTO) 5 % (12-44); MEAN CORPUSCULAR HEMOGLOBIN 31 pg (25-34); MEAN CORPUSCULAR HGB CONC 34 g/dL (32-36); MEAN CORPUSCULAR VOLUME 91 fL (80-99); MEAN PLATELET VOLUME 10.1 fL (9.0-12.2); MONOCYTES # (AUTO) 0.8 10^3/uL (0.0-1.0); MONOCYTES % (AUTO) 4 % (0-12); NEUTROPHILS # (AUTO) 16.5 10^3/uL (1.8-7.8); NEUTROPHILS % (AUTO) 90 % (42-75); PLATELET COUNT 331 10^3/uL (130-400); WHITE BLOOD COUNT 18.3 10^3/uL (4.3-11.0)
[2022-06-23] MEDS ORDERED: MAGNESIUM 1 GM/100 ML IVPB 100 ML IV SCH (06:00)
[2022-06-23] MEDS ORDERED: KCL 20 MEQ TAB (K-DUR) PO SCH (06:00)
[2022-06-23] MEDS ORDERED: POTASSIUM CL 10MEQ/50ML IVPB 50 ML IV SCH (06:00)
[2022-06-23 06:10] LABS: ALBUMIN 3.9 GM/DL (3.2-4.5); BILIRUBIN,TOTAL 0.7 MG/DL (0.1-1.0); CALCIUM 9.3 MG/DL (8.5-10.1); CREATININE SERUM 1.24 MG/DL (0.60-1.30); PHOSPHORUS 4.4 MG/DL (2.3-4.7); POTASSIUM 3.5 MMOL/L (3.6-5.0); TOTAL PROTEIN 7.3 GM/DL (6.4-8.2)
--- NOTE | 2022-06-23 07:32 | Physical Therapy Progress Note ---
Therapy Progress Note Patient transferred to ICU. PT will require new orders to resume therapy. BARRY MORAN PT Jun 23, 2022 07:32
[2022-06-23] MEDS: MAGNESIUM OXIDE (MAG-OX)400 MG TAB PO SCH (07:37)
[2022-06-23] MEDS ORDERED: KCL 20 MEQ TAB (K-DUR) PO ONE (08:00)
[2022-06-23] MEDS: LORATADINE (CLARITIN) 10 MG TAB PO SCH (08:40)
[2022-06-23] MEDS: PANTOPRAZOLE 40 MG (PROTONIX) TAB PO SCH (08:40)
[2022-06-23] MEDS: ASPIRIN E.C. 81 MG (ECOTRIN) TAB PO SCH (08:40)
[2022-06-23] MEDS: VITAMIN D3 125 MCG (5,000 UNITS) CAPSULE PO SCH (08:40)
[2022-06-23] MEDS: FLECAINIDE 100 MG (TAMBOCOR) TAB PO SCH ×2 (08:40→21:24)
[2022-06-23] MEDS: DOCUSATE SODIUM 100 MG (COLACE) CAP PO SCH ×2 (08:40→21:24)
[2022-06-23] MEDS: CALCIUM CARBONATE 600 MG (CALCARB) TAB PO SCH (08:40)
[2022-06-23] MEDS: SENNOSIDES 8.6 MG (SENOKOT) TAB PO SCH ×2 (08:41→21:24)
[2022-06-23] MEDS: BUMETANIDE 1 MG (BUMEX) TAB PO SCH ×2 (08:41→21:24)
[2022-06-23] MEDS: polyethylene glycoL POWDER 17 GM (MIRALAX) PACK PO SCH (08:41)
[2022-06-23] MEDS: ENOXAPARIN 40 MG/0.4 ML (LOVENOX) SYR SC SCH (08:41)
[2022-06-23] MEDS: methylPREDNISolone 40 MG/ML (Solu-MEDROL) VIAL IV SCH (08:42)
--- NOTE | 2022-06-23 09:18 | Diagnostic Imaging Report ---
Indication: Shortness of breath. Comparison with 06/19/2022. FINDINGS: Heart is mildly enlarged. Single pacemaker again noted on the right. The lungs show mild prominence interstitial markings. No consolidated infiltrate. No pneumothorax or pleural effusion. IMPRESSION: 1. Cardiomegaly. The perihilar interstitial infiltrates have increased since previous exam. Dictated by: Dictated on workstation # [id number]
--- NOTE | 2022-06-23 11:04 | Tele-ICU Progress Note ---
Subjective Date Seen by a Provider: Jun 23, 2022 Time Seen by a Provider: 11:02 Subjective/Events-last exam (Tele-ICU Physician , Progress Note ) Service provided via interactive audio and video telecommunications E-CARE system to a patient admitted to ICU bed in [facility]. Available chart/ vitals / labs / Images reviewed Video assessment done using teleICU camera, rest of exam as per RN Discussed with RN Events overnight : Afebrile hemodynamically stable Respiratory - I/O = even Drips: Pressors- no Consultants: Hospital course: Patient is seen today due to persistent hypoxia and hyperglycemia A/P Acute resp failure - on 4 l - no need for NIPPV - SM 40 q 12- ? TO DECREASE DOSE? - as per PCP ( RN reports clear lung exam ) Acute mental status change 06/22 - CTH neg - back to normal AOO x4 -encepholapthy from steroids ? Hyperglycemia - on insulin gtt , non DKA - to wean it off Chronic A fib - rate control - s/p Watchman procedure done due to intolerance to OAC's Lines : periph , (Central Line Necessity Reviewed) Mak: OG: Nutrition: Analgesia: Anxiety/ delirium VTE Prophylaxis: tadeo 40 Stress Ulcer Prophylaxis: na Plans in collaboration with bedside consultants and IM MDs. Discussed with RN to reach out if any questions or concerns A total of 31 minutes of critical care time was devoted to this patient today, required to treat and/or prevent further deterioration of critical care condition ( as above ) . I am remotely monitoring this patient from another state. I am unable to do the bedside exam, and history/physical and pertinent information is taken from other notes in the computer and bedside staff. Sepsis Event Evaluation Height, Weight, BMI Height: '" Weight: lbs. oz. kg; 35.67 BMI Method: Exam Exam Patient acknowledged, consented, and participated in this virtual visit which was conducted using real time audio/video Vital Signs Date Time Temp Pulse Resp B/P (MAP) Pulse Ox O2 Delivery O2 Flow Rate FiO2 06/23/22 10:45 36.7 06/23/22 10:00 103 12 151/69 (96) 93 High Flow N/C 1.00 06/23/22 09:00 81 14 139/79 (99) 94 High Flow N/C 1.00 06/23/22 08:00 94 Nasal Cannula 4.00 12/13/22 08:00 95 Nasal Cannula 2.00 06/23/22 08:00 68 13 126/70 (88) 95 High Flow N/C 1.00 06/23/22 07:54 36.7 06/23/22 07:00 74 06/23/22 07:00 70 23 115/74 (88) 97 High Flow N/C 4.00 06/23/22 06:00 71 15 121/66 (84) 95 High Flow N/C 4.00 06/23/22 05:00 68 28 119/75 (90) 90 High Flow N/C 4.00 06/23/22 04:07 Nasal Cannula 4.00 06/23/22 04:00 75 34 110/72 (85) 93 High Flow N/C 4.00 06/23/22 03:15 97 Room Air 0.00 06/23/22 03:00 69 20 110/61 (77) 92 High Flow N/C 4.00 06/23/22 02:48 36.2 High Flow N/C 4.00 06/23/22 02:00 75 19 122/71 (88) 93 High Flow N/C 4.00 06/23/22 01:00 79 13 126/72 (90) 97 High Flow N/C 4.00 06/23/22 01:00 79 06/23/22 00:07 Nasal Cannula 4.00 06/23/22 00:00 79 9 124/76 (92) 96 High Flow N/C 4.00 06/22/22 23:14 36.0 06/22/22 23:05 High Flow N/C 4.00 06/22/22 23:00 84 24 124/64 (84) 97 High Flow N/C 4.00 06/22/22 22:00 79 8 125/70 (88) 96 High Flow N/C 4.00 06/22/22 21:14 96 Nasal Cannula 4.00 06/22/22 21:00 77 16 117/70 (86) 96 High Flow N/C 4.00 06/22/22 20:00 78 28 125/64 (84) 97 High Flow N/C 4.00 06/22/22 20:00 Nasal Cannula 4.00 06/22/22 19:48 36.6 06/22/22 19:00 High Flow N/C 4.00 06/22/22 19:00 91 26 137/68 (91) 96 High Flow N/C 4.00 06/22/22 19:00 91 06/22/22 18:55 95 3.00 06/22/22 18:00 85 19 129/94 (106) 93 NIV Bilevel 21.00 06/22/22 17:21 78 22 135/82 95 06/22/22 17:00 70 20 127/84 (98) 93 NIV Bilevel 21.00 06/22/22 16:21 87 18 131/100 93 06/22/22 16:00 36.0 06/22/22 16:00 87 17 128/81 (97) 93 NIV Bilevel 21.00 06/22/22 15:21 91 18 122/79 92 06/22/22 15:00 93 18 131/72 (91) 93 NIV Bilevel 21.00 06/22/22 14:39 91 18 93 21.00 06/22/22 14:21 108 18 129/87 93 06/22/22 14:00 130 18 109/81 (90) 92 NIV Bilevel 21.00 06/22/22 13:21 124 18 136/88 06/22/22 13:00 115 17 142/97 (112) 93 NIV Bilevel 21.00 06/22/22 12:50 114 06/22/22 12:45 114 18 139/81 (100) 93 NIV Bilevel 21.00 06/22/22 12:30 105 8 116/82 (93) 94 NIV Bilevel 21.00 06/22/22 12:21 103 17 145/78 93 06/22/22 12:15 111 18 104/76 (85) 93 NIV Bilevel 21.00 06/22/22 12:00 112 19 156/81 (106) 92 NIV Bilevel 21.00 06/22/22 11:54 36.9 06/22/22 11:45 122 16 154/85 (108) 92 NIV Bilevel 21.00 06/22/22 11:30 98 140/86 (104) 93 NIV Bilevel 21.00 I & O 06/23/22 07:00 Intake Total 2045 ml Output Total 2150 ml Balance -105 ml Height & Weight Height: '" Weight: lbs. oz. kg; 35.67 BMI Method: General Appearance: Anxious, Chronically ill, Mild Distress HEENT: PERRL/EOMI, TMs Normal, Normal ENT Inspection, Pharynx Normal, Moist Mucous Membranes Neck: Full Range of Motion, Normal Inspection, Non Tender Respiratory: Lungs Clear, Normal Breath Sounds, Decreased Breath Sounds Cardiovascular: Regular Rate, Rhythm Capillary Refill: Less Than 3 Seconds Extremity: Normal Capillary Refill, Normal Inspection, Normal Range of Motion, Non Tender, No Calf Tenderness, No Pedal Edema Neurologic/Psychiatric: Alert, Oriented x3, No Motor/Sensory Deficits, Normal Mood/Affect, Depressed Affect, Disoriented, Other (moves all four extremiteis, ) Skin: Normal Color, Warm/Dry Lymphatic: No Adenopathy Results Lab Laboratory Tests 06/22/22 05:30 06/23/22 05:20 Assessment/Plan Assessment/Plan 1 DOTTY MCMAHON MD Jun 23, 2022 11:04
--- NOTE | 2022-06-23 11:18 | Physical Therapy Progress Note ---
Therapy Progress Note Received orders to continue PT with patient, however patient refused physical therapy, patient states "I'm too tired to do anything". Educated the patient on the importance of participating in PT and she continues to refuse. Will check back this afternoon if able. AUTUMN MARTINEZ PT Jun 23, 2022 11:18
[2022-06-23] MEDS: KCL 20 MEQ TAB (K-DUR) PO SCH ×2 (11:34→21:24)
[2022-06-23] MEDS: inSUlin ASPART (NovoLOG) 1 UNIT/0.01 ML (CHARGE PER UNIT) SC SCH ×3 (11:35→21:25)
[2022-06-23] MEDS: predniSONE 20 MG TAB PO SCH (11:36)
--- NOTE | 2022-06-23 11:43 | Occupational Therapy Eval ---
OT Evaluation-General/PLF Medical Diagnosis Admission Date Jun 19, 2022 at 22:48 Medical Diagnosis: SOA chest pain Onset Date: Jun 19, 2022 Therapy Diagnosis Therapy Diagnosis: reduced adl status Precautions Precautions/Isolations: Fall Prevention, Standard Precautions Referral Physician: Amanda Arrieta Reason: Evaluation/Treatment Medical History Pertinent Medical History: Atrial Fib, Arthritis, CAD, COPD, GERD, Heart Failure, HTN, Hypothroidism, [place] Current History Pt presented to hospital with SOB and chest pain. Found to be in acute resp failure requiring BiPAP. Per patient, she lives in a 3rd floor apartment at [facility]; elevator access. She has caregivers that come in 7 days a week for 5 hours a day. The caregivers assist with IADLs and whatever ADLs she needs assist with. Pt states that on days that she feels good, she can manage steps of toileting and some dressing. Pt uses a cane and wears 2-3L O2, NC at baseline. Reviewed History: Yes Social History Home: Apartment Current Living Status: Alone Entry Into Home: Elevator ADL-Prior Level of Function SCALE: Activities may be completed with or without assistive devices. 7-Arczvoripe-iutyedd completes the activity by him/herself with no assistance from a helper. 5-Set-up or Clean-up Assistance-helper sets up or cleans up; patient completes activity. [place] assists only prior to or following the activity. 4-Supervision or Touching Assistance-helper provides verbal cues and/or touching/steadying and/or contact guard assistance as patient completes activity. Assistance may be provided throughout the activity or intermittently. 3-Partial/Moderate Assistance-helper does LESS THAN HALF the effort. [place] lifts, holds or supports trunk or limbs, but provides less than half the effort. 2-Substantial/Maximal Assistance-helper does MORE THAN HALF the effort. [place] lifts or holds trunk or limbs and provides more than half the effort. 7-Zrftqnaqn-tsrdrk does ALL the effort. Patient does none of the effort to complete the activity. Or, the assistance of 2 or more helpers is required for the patient to complete the activity. If activity was not attempted, code reason: 7-Patient Refused. 9-Not Applicable-not attempted and the patient did not perform the activity before the current illness, exacerbation or injury. 10-Not Attempted due to Environmental Limitations-(lack of equipment, weather restraints, etc.). 88-Not Attempted due to Medical Conditions or Safety Concerns. Self Care: Needed Some Help Functional Cognition: Needed Some Help DME/Equipment: Bath Chair, Grab Bars, Shower Drive Self: No OT Current Status Subjective Pt reports chronic back, neck, and R shoulder pain. Agreeable to evaluation Appearance Pt left supine in bed, RN in room. Mental Status/Objective Patient Orientation: Person, Place, Situation Attachments: Wilder Catheter, IV, Oxygen, Telemetry Current Glasses/Contacts: Yes Hearing Aids: No Dentures/Partials: No Hand Dominance: Right Upper Extremity ROM R shoulder AROM ~ 30 degrees, AAROM ~45 degrees. 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 She declines all OOB activities secondary to not feeling well. Pt agreeable to bed level grooming tasks. Assist x2 to supine scoot towards HOB. Once HOB raised, HR increases into 140's but quickly returns to 110's-120's once HOB slightly lowered. Unsure if due to kink or actual HR. RN notified. Education OT Patient Education: Modified ADL techniques, Purpose of tx/functional activities, Safety issues, Transfer techniques Teaching Recipient: Patient Teaching Methods: Discussion Response to Teaching: Verbalize Understanding, Return Demonstration, Reinforcement Needed OT Emts Goals Emts Goals Time Frame: Jul 07, 2022 Oral Hygiene (QC): 6 Toileting Hygiene (QC): 4 Shower/Bathe Self (QC): 3 Upper Body Dressing (QC): 3 Lower Body Dressing (QC): 3 On/Off Footwear (QC): 3 Additional Goals: 1-Demonstrate ADL Tasks, 2-Verbalize Understanding, 3- ImproveStrength/Luz 1=Demonstrate adherence to instructed precautions during ADL tasks. 2=Patient will verbalize/demonstrate understanding of assistive devices/modifications for ADL. 3=Patient will improve strength/tolerance for activity to enable patient to perform ADL's. OT Education/Plan Problem List/Assessment Assessment: Decreased Activ Tolerance, Decreased UE Strength, Impaired Bed Mobility, Impaired Self-Care Skills, Restricted Funct UE ROM Discharge Recommendations Plan/Recommendations: Continue POC Target Placement ongoing assessment Treatment Plan/Plan of Care Treatment,Training & Education: Yes Patient would benefit from OT for education, treatment and training to promote independence in ADL's, mobility, safety and/or upper extremity function for ADL's. Plan of Care: ADL Retraining, Functional Mobility, Group Exercise/Act as Ind, UE Funct Exercise/Act Treatment Duration: Jul 07, 2022 Frequency: 3 times per week (3-5x/week ) Estimated Hrs Per Day: .25 hour per day Rehab Potential: Fair Time Start Time: 11:22 Stop Time: 11:35 DATE: Jun 23, 2022 Total Time Billed (hr/min): 13 Billed Treatment Time 1 visit Lashawn Shearer OT Jun 23, 2022 11:43
--- NOTE | 2022-06-23 13:01 | Progress Note - Hospitalist ---
[facility] 06/23/22 1301: Subjective HPI/CC On Admission Date Seen by Provider: Jun 23, 2022 Time Seen by Provider: 09:30 Chief complaint: Dyspnea requiring BiPAP consistent with acute respiratory failure HPI: This is a 71-year-old female who has a past medical history of COVID a few weeks ago and has continued to decline. She presented to the ER with acute respiratory failure requiring BiPAP and IV steroids. No evidence of any pulmonary embolism or bacterial pneumonia. Currently she is still a bit tachypneic but improved. Cardiology will be consulted for chest pain. All home meds were restarted. Subjective/Events-last exam Today she is lying comfortably and reports feeling much better. She is well oriented. Reports some nausea after taking her PO medications and chronic shoulder pain in the right shoulder. She is on oxygen via nasal cannula today. The CXR today revealed cardiomegaly. The perihilar interstitial infiltrates have increased since previous exam. Review of Systems Pulmonary: No Dyspnea Cardiovascular: No: Chest Pain Gastrointestinal: Nausea; No: Abdominal Pain Musculoskeletal: shoulder pain (right-chronic); No: back pain Objective Exam Vital Signs Vital Signs Date Time Temp Pulse Resp B/P (MAP) Pulse Ox O2 Delivery O2 Flow Rate FiO2 06/23/22 12:00 95 Nasal Cannula 4.00 06/23/22 11:38 36.5 06/23/22 11:00 106 28 128/65 (86) 06/22/22 16:00 21 Capillary Refill : Less Than 3 Seconds General Appearance: No Apparent Distress, WD/WN HEENT: PERRL/EOMI, Moist Mucous Membranes Neck: Full Range of Motion Respiratory: Chest Non Tender, Lungs Clear, Normal Breath Sounds, No Accessory Muscle Use, No Respiratory Distress Cardiovascular: Regular Rate, Rhythm, No Edema, No Gallop, No JVD, No Murmur, Normal Peripheral Pulses Gastrointestinal: Non Tender, Soft Extremity: Normal Capillary Refill Neurologic/Psychiatric: Alert, Oriented x3, Normal Mood/Affect Skin: Normal Color, Warm/Dry Results/Procedures Lab Laboratory Tests 06/23/22 05:20 Patient resulted labs reviewed. Assessment/Plan Assessment and Plan Assess & Plan/Chief Complaint Assessment: Altered Mental Status- ?encepholapthy from steroids - resolved Tachycardia- resolved Elevated blood glucose Acute hypoxic respiratory failure requiring BiPAP Acute exacerbation of COPD Acute on chronic HFpEF Volume overload Recent COVID Chronic pain Arthritis Atrial fibrillation status post watchman Hypertension CAD Chronic insomnia Plan: Head CT had no evidence of acute intracranial process D/c insulin drip, start sliding scale insulin Oxygen support as needed - currently maintained on nasal cannula Home meds Dr. Vear and Roni appreciated Start OT, PT and IS D/c solumedrol, start prednisone KARMEN GONZALES DO 06/24/22 0442: Objective Exam General Appearance: No Apparent Distress, WD/WN, Chronically ill Respiratory: Lungs Clear, Normal Breath Sounds Cardiovascular: Regular Rate, Rhythm Assessment/Plan Assessment and Plan Assess & Plan/Chief Complaint Improved status Moved to fourth floor Supervisory-Addendum Brief Verification & Attestation Participated in pt care: history, MDM, physical Personally performed: exam, history, MDM, supervision of care Care discussed with: Medical Student Procedures: n/a Results interpretation: Verified all documentation Verification and Attestation of Medical Student E/M Service A medical student performed and documented this service in my presence. I revi ewed and verified all information documented by the medical student and made modifications to such information, when appropriate. I personally performed the physical exam and medical decision making. Karmen Gonzales Jun 24, 2022,04:41 CELO NOLASCO Jun 23, 2022 13:01 KARMEN GONZALES DO Jun 24, 2022 04:42
[2022-06-23 18:51] VITALS: BP 120/67
[2022-06-23 19:59] VITALS: BP 122/81
[2022-06-23] MEDS ORDERED: inSUlin (REGULAR) HUMAN 1 UNIT/0.01 ML (CHARGE PER UNIT) SC ONE (20:15)
[2022-06-23] MEDS ORDERED: inSUlin (REGULAR) HUMAN 1 UNIT/0.01 ML (CHARGE PER UNIT) ONE (21:17)
[2022-06-23] MEDS: MONTELUKAST 10 MG (SINGULAIR) TAB PO SCH (21:24)
[2022-06-23] MEDS: traZODone 100 MG (DESYREL) TAB PO SCH (21:24)
[2022-06-23] MEDS: PARoxetine 20 MG (PAXIL) TAB PO SCH (21:25)
[2022-06-23] MEDS: ZOLPIDEM 5 MG (AMBIEN) TAB PO SCH (21:25)
[2022-06-23 23:48] VITALS: BP 110/61
[2022-06-24] VITALS (7 sets, daily range): BP systolic 114–156; BP diastolic 75–95
[2022-06-24] MEDS: RT-ALBUTEROL/IPRATROPIUM 3 ML (DUONEB) VIAL INH SCH ×4 (02:57→20:37)
[2022-06-24 06:11] LABS: BASOPHILS # (AUTO) 0.1 10^3/uL (0.0-0.1); BASOPHILS % (AUTO) 0 % (0-10); EOSINOPHILS % (AUTO) 0 % (0-10); HEMATOCRIT 49 % (35-52); HEMOGLOBIN 16.9 g/dL (11.5-16.0); LYMPHOCYTES # (AUTO) 1.5 10^3/uL (1.0-4.0); LYMPHOCYTES % (AUTO) 7 % (12-44); MEAN CORPUSCULAR HEMOGLOBIN 31 pg (25-34); MEAN CORPUSCULAR HGB CONC 34 g/dL (32-36); MEAN CORPUSCULAR VOLUME 90 fL (80-99); MEAN PLATELET VOLUME 9.9 fL (9.0-12.2); MONOCYTES # (AUTO) 1.2 10^3/uL (0.0-1.0); MONOCYTES % (AUTO) 6 % (0-12); NEUTROPHILS % (AUTO) 85 % (42-75); PLATELET COUNT 356 10^3/uL (130-400); WHITE BLOOD COUNT 21.1 10^3/uL (4.3-11.0)
[2022-06-24] MEDS: inSUlin ASPART (NovoLOG) 1 UNIT/0.01 ML (CHARGE PER UNIT) SC SCH ×4 (06:14→20:02)
[2022-06-24] MEDS: predniSONE 20 MG TAB PO SCH (06:16)
[2022-06-24 06:50] LABS: ALBUMIN 3.9 GM/DL (3.2-4.5); POTASSIUM 3.4 MMOL/L (3.6-5.0)
[2022-06-24 06:51] LABS: CALCIUM 9.3 MG/DL (8.5-10.1)
[2022-06-24 06:53] LABS: TOTAL PROTEIN 7.2 GM/DL (6.4-8.2)
[2022-06-24 06:56] LABS: CREATININE SERUM 1.3 MG/DL (0.60-1.30)
[2022-06-24 07:00] LABS: MAGNESIUM 2.1 MG/DL (1.6-2.4)
[2022-06-24] MEDS: BUMETANIDE 1 MG (BUMEX) TAB PO SCH ×2 (09:26→20:01)
[2022-06-24] MEDS: CALCIUM CARBONATE 600 MG (CALCARB) TAB PO SCH (09:26)
[2022-06-24] MEDS: LORATADINE (CLARITIN) 10 MG TAB PO SCH (09:27)
[2022-06-24] MEDS: PANTOPRAZOLE 40 MG (PROTONIX) TAB PO SCH (09:27)
[2022-06-24] MEDS: ASPIRIN E.C. 81 MG (ECOTRIN) TAB PO SCH (09:27)
[2022-06-24] MEDS: VITAMIN D3 125 MCG (5,000 UNITS) CAPSULE PO SCH (09:27)
[2022-06-24] MEDS: DOCUSATE SODIUM 100 MG (COLACE) CAP PO SCH ×2 (09:27→20:01)
[2022-06-24] MEDS: SENNOSIDES 8.6 MG (SENOKOT) TAB PO SCH ×2 (09:27→20:01)
[2022-06-24] MEDS: MAGNESIUM OXIDE (MAG-OX)400 MG TAB PO SCH (09:27)
[2022-06-24] MEDS: FLECAINIDE 100 MG (TAMBOCOR) TAB PO SCH ×2 (09:27→20:00)
[2022-06-24] MEDS: KCL 20 MEQ TAB (K-DUR) PO SCH ×2 (09:27→20:01)
[2022-06-24] MEDS: polyethylene glycoL POWDER 17 GM (MIRALAX) PACK PO SCH (09:28)
[2022-06-24] MEDS: ENOXAPARIN 40 MG/0.4 ML (LOVENOX) SYR SC SCH (09:28)
[2022-06-24] MEDS: CEFEPIME INJECTION 1,000 MG in NS (IVPB) 50 ML IV SCH ×2 (09:29→17:22)
[2022-06-24] MEDS: LACTULOSE SYRUP 10GM/15ML (ENULOSE) 30ML UDC PO PRN (09:34)
[2022-06-24] MEDS: ACETAMINOPHEN 325 MG TABLET PO PRN ×2 (11:20→12:00)
[2022-06-24] MEDS: HYDROcodone/APAP 5 MG/325 MG (LORTAB) TAB PO PRN (12:18)
--- NOTE | 2022-06-24 13:08 | Progress Note - Hospitalist ---
[facility] 06/24/22 1308: Subjective HPI/CC On Admission Chief complaint: Dyspnea requiring BiPAP consistent with acute respiratory failure HPI: This is a 71-year-old female who has a past medical history of COVID a few weeks ago and has continued to decline. She presented to the ER with acute respiratory failure requiring BiPAP and IV steroids. No evidence of any pulmonary embolism or bacterial pneumonia. Currently she is still a bit tachyp neic but improved. Cardiology will be consulted for chest pain. All home meds were restarted. Subjective/Events-last exam Nubia was moved to the 4th floor last night given her status improvement. Today she reports stomach pain and pressure as well as nausea she attributes to constipation. She has not had a BM since 06/18. So far she has taken Senna, Docusate, Miralax, Milk of Magnesia and Lactulose for the constipation. Otherwise she has chronic neck and shoulder pain. She has minimal SOB with very deep breathing. She did use BiPAP overnight. Blood cultures from 06/19 resulted with gram positive rods. Review of Systems HEENT: No Head Aches Pulmonary: Dyspnea Cardiovascular: No: Chest Pain Gastrointestinal: Nausea, Abdominal Pain, Constipation Musculoskeletal: neck pain, shoulder pain Objective Exam Vital Signs Vital Signs Date Time Temp Pulse Resp B/P (MAP) Pulse Ox O2 Delivery O2 Flow Rate FiO2 06/24/22 12:00 36.0 94 19 131/80 (97) 94 Room Air 06/24/22 09:52 4.00 06/22/22 16:00 21 Capillary Refill : Less Than 3 Seconds General Appearance: No Apparent Distress, WD/WN HEENT: PERRL/EOMI, Moist Mucous Membranes Neck: Full Range of Motion, Non Tender Respiratory: Chest Non Tender, Lungs Clear, Normal Breath Sounds, No Accessory Muscle Use, No Respiratory Distress Cardiovascular: Regular Rate, Rhythm, No Edema, No Gallop, No JVD, No Murmur, N ormal Peripheral Pulses Gastrointestinal: Normal Bowel Sounds, Soft, Tenderness (diffuse) Rectal: Deferred Extremity: Normal Capillary Refill Neurologic/Psychiatric: Alert, Oriented x3, Normal Mood/Affect Skin: Normal Color, Warm/Dry Results/Procedures Lab Laboratory Tests 06/24/22 05:45 Patient resulted labs reviewed. Assessment/Plan Assessment and Plan Assess & Plan/Chief Complaint Assessment: Bacteremia Altered Mental Status- ?encepholapthy from steroids - resolved Tachycardia- resolved Elevated blood glucose Acute hypoxic respiratory failure requiring BiPAP Acute exacerbation of COPD Acute on chronic HFpEF Volume overload Recent COVID Chronic pain Arthritis Atrial fibrillation status post watchman Hypertension CAD Chronic insomnia Constipation Plan: IV Cefepime Head CT had no evidence of acute intracranial process Continue sliding scale insulin Oxygen support as needed Home meds Dr. Vera and eICU appreciated Start OT, PT and IS Continue prednisone KARMEN GONZALES DO 06/25/22 0451: Supervisory-Addendum Brief Verification & Attestation Participated in pt care: history, MDM, physical Personally performed: exam, history, MDM, supervision of care Care discussed with: Medical Student Procedures: n/a Results interpretation: Verified all documentation Verification and Attestation of Medical Student E/M Service A medical student performed and documented this service in my presence. I reviewed and verified all information documented by the medical student and made modifications to such information, when appropriate. I personally performed the physical exam and medical decision making. Karmen Gonzales, Jun 25, 2022,04:51 CLEO NOLASCO Jun 24, 2022 13:08 KARMEN GONZALES DO Jun 25, 2022 04:51
--- NOTE | 2022-06-24 13:12 | Physical Therapy Progress Note ---
Therapy Progress Note Patient on hold this afternoon per nurse. Will check back in the morning. AUTUMN MARTINEZ PT Jun 24, 2022 13:12
--- NOTE | 2022-06-24 13:14 | Occ Therapy Progress Note ---
Therapy Progress Note Patient on hold this afternoon per nurse. OT will attempt tx again tomorrow if pt is more medically stable and able to participate in skilled therapy. MINESH CALDERA OT Jun 24, 2022 13:14
[2022-06-24] MEDS: ALPRAZolam 0.5 MG (XANAX) TAB PO PRN (13:36)
--- NOTE | 2022-06-24 16:57 | Cardiology Progress Note ---
Progress Note-Cardiology Events since last exam Date Seen by Provider: Jun 24, 2022 Time Seen by Provider: 16:52 Events since last exam I am following her due to atrial fibrillation and heart failure. Earlier today she developed tachycardia and became more short of breath. They gave her an alprazolam and her heart rate improved as well as her breathing. Physical therapy would not work with the patient today due to the tachycardia. She denies chest discomfort, syncope, or ankle edema. Certain portions of this document may have been dictated utilizing voice recognition technology. Inherent to this technology, typographical and grammatical errors may exist. As much as I am diligent to identify and correct these mistakes, some errors may remain in the document. Vitals Last set of Vitals Signs Vital Signs 06/22/22 06/24/22 16:00 15:47 Temp 36.1 Pulse 89 Resp 18 B/P (MAP) 156/95 (115) Pulse Ox 93 O2 Delivery High Flow N/C O2 Flow Rate 4.00 FiO2 21 Labs Labs Laboratory Tests 06/24/22 05:45 Exam Vital Signs Vital Signs Date Time Temp Pulse Resp B/P (MAP) Pulse Ox O2 Delivery O2 Flow Rate FiO2 06/24/22 15:47 36.1 89 18 156/95 (115) 93 High Flow N/C 4.00 06/22/22 16:00 21 Physical Exam General: Alert. No acute distress. Eye: No xanthelasma. HENT: Normocephalic. Neck: Jugular venous pressure does not appear elevated. Respiratory: Lungs are clear to auscultation. Respirations are non-labored. [place] th sounds are equal. Symmetrical chest wall expansion. Cardiovascular: Normal rate. Irregular rhythm. Distant S1/S2. No murmur. No gallop. No edema. Gastrointestinal: Soft. Normal bowel sounds. Skin: Warm. Dry. Neurologic: Alert and oriented to person, place, time. Cranial nerves 3-11 grossly intact. Psychiatric: Cooperative. Appropriate mood & affect. Labs Laboratory Tests Test 06/23/22 19:07 06/23/22 20:16 06/24/22 05:45 06/24/22 06:12 Range/Units Glucometer 328 H 332 H 125 H 70-110 MG/DL White Blood Count 21.1 H 4.3-11.0 10^3/uL Red Blood Count 5.50 H 3.80-5.11 10^6/uL Hemoglobin 16.9 H 11.5-16.0 g/dL Hematocrit 49 35-52 % Mean Corpuscular Volume 90 80-99 fL Mean Corpuscular Hemoglobin 31 25-34 pg Mean Corpuscular Hemoglobin Concent 34 32-36 g/dL Red Cell Distribution Width 11.8 10.0-14.5 % Platelet Count 356 130-400 10^3/uL Mean Platelet Volume 9.9 9.0-12.2 fL Immature Granulocyte % (Auto) 2 % Neutrophils (%) (Auto) 85 H 42-75 % Lymphocytes (%) (Auto) 7 L 12-44 % Monocytes (%) (Auto) 6 0-12 % Eosinophils (%) (Auto) 0 0-10 % Basophils (%) (Auto) 0 0-10 % Neutrophils # (Auto) 18.0 H 1.8-7.8 10^3/uL Lymphocytes # (Auto) 1.5 1.0-4.0 10^3/uL Monocytes # (Auto) 1.2 H 0.0-1.0 10^3/uL Eosinophils # (Auto) 0.0 0.0-0.3 10^3/uL Basophils # (Auto) 0.1 0.0-0.1 10^3/uL Immature Granulocyte # (Auto) 0.4 H 0.0-0.1 10^3/uL Sodium Level 138 135-145 MMOL/L Potassium Level 3.4 L 3.6-5.0 MMOL/L Chloride Level 92 L 98-107 MMOL/L Carbon Dioxide Level 29 21-32 MMOL/L Anion Gap 17 H 5-14 MMOL/L Blood Urea Nitrogen 42 H 7-18 MG/DL Creatinine 1.30 0.60-1.30 MG/DL Estimat Glomerular Filtration Rate 44 BUN/Creatinine Ratio 32 Glucose Level 125 H 70-105 MG/DL Calcium Level 9.3 8.5-10.1 MG/DL Corrected Calcium 9.4 8.5-10.1 MG/DL Magnesium Level 2.1 1.6-2.4 MG/DL Total Bilirubin 1.0 0.1-1.0 MG/DL Aspartate Amino Transf (AST/SGOT) 28 5-34 U/L Alanine Aminotransferase (ALT/SGPT) 52 0-55 U/L Alkaline Phosphatase 109 40-136 U/L Total Protein 7.2 6.4-8.2 GM/DL Albumin 3.9 3.2-4.5 GM/DL Test 06/24/22 09:47 06/24/22 16:03 Range/Units Glucometer 209 H 293 H 70-110 MG/DL Diagnosis/Problems Diagnosis/Problems (1) Acute on chronic heart failure with preserved ejection fraction (HFpEF) Assessment & Plan: I suspect she had some decompensation of her heart failure at the time of admission due to stopping her diuretic and other cardiac medications. Bumetanide typically has good bioavailability and gastrointestinal absorption when given orally. I gave her 1 dose of IV bumetanide on 06/21. She underwent a CT angiogram of the chest that did not show any evidence of pulmonary emboli, aortic disease or pulmonary infiltrate or heart failure. Follow-up chest x-ray from 06/23 did show some increase in pulmonary vascular co ngestion. I recommend she continue on the current dose of bumetanide. I will obtain a follow-up chest x-ray tomorrow. (2) Paroxysmal atrial fibrillation Assessment & Plan: She remains in atrial fibrillation. This was probably due to stopping flecainide. I restarted her flecainide and diltiazem at the time of admission. She is not on oral anticoagulation because she has a Watchman device. I increase the dose of flecainide to 100 mg twice daily on 06/22. She still has atrial fibrillation with intermittent tachycardia. I will increase the flecainide to 150 mg twice daily and also increase the dose of diltiazem. (3) Primary hypertension Assessment & Plan: Her blood pressures have been intermittently elevated. I change the diltiazem to 300 mg daily and the first dose will be 06/25. (4) Pulmonary hypertension Assessment & Plan: Her echocardiogram from this admission showed pulmonary hypertension that actually appears improved compared to a previous ec hocardiogram. This is most likely multifactorial due to some underlying pulmonary disease as well as chronic heart failure. She may benefit from home oxygen if she is not already using this at home. As above, she had a CT angiogram that did not show any evidence of pulmonary embolism. (5) Chest pain Assessment & Plan: Etiology unclear. She has had this in the past. She did not report chest discomfort to me in the past 2 days she denies a history of esophageal reflux disease. She did have a nuclear stress test in 2019 that was normal. I started her on a proton pump inhibitor to see if this helps with the chest discomfort. If the chest discomfort recurs, we may need to consider a repeat stress test. (6) Complete heart block Assessment & Plan: She has a permanent pacemaker in place that appears to be functioning normally. (7) Aortic regurgitation Assessment & Plan: She has mild to moderate aortic regurgitation as noted on her echocardiogram from this admission. This should not be causing symptoms but will need to be followed by her regular special warfare boat operator following discharge. (8) Mitral regurgitation Assessment & Plan: She also has moderate mitral regurgitation which I would not suspect would cause symptoms but will need to be followed in the long run by her regular special warfare boat operator at the outside facility. (9) Cardiac pacemaker in situ Assessment & Plan: This is monitored by her regular special warfare boat operator. (10) Stage 3a chronic kidney disease Assessment & Plan: Her renal function will need to be monitored closely now that she is back on her diuretic. (11) Mixed hyperlipidemia Assessment & Plan: Continue statin medication. The medication reconciliation showed this was twice daily. I have asked for clarification on this. We do not usually give statin medications twice a day. I have ordered this for once daily. (12) Obesity Assessment & Plan: She needs to work on weight loss. BRIDGETT FELIPE JR, MD Jun 24, 2022 16:57
[2022-06-24] MEDS: ZOLPIDEM 5 MG (AMBIEN) TAB PO SCH (20:01)
[2022-06-24] MEDS: MONTELUKAST 10 MG (SINGULAIR) TAB PO SCH (20:01)
[2022-06-24] MEDS: PARoxetine 20 MG (PAXIL) TAB PO SCH (20:01)
[2022-06-24] MEDS: traZODone 100 MG (DESYREL) TAB PO SCH (20:01)
[2022-06-25] VITALS (9 sets, daily range): BP systolic 91–148; BP diastolic 63–90
[2022-06-25] MEDS: CEFEPIME INJECTION 1,000 MG in NS (IVPB) 50 ML IV SCH ×3 (02:32→16:51)
[2022-06-25] MEDS: RT-ALBUTEROL/IPRATROPIUM 3 ML (DUONEB) VIAL INH SCH ×4 (03:00→19:45)
[2022-06-25] MEDS: inSUlin ASPART (NovoLOG) 1 UNIT/0.01 ML (CHARGE PER UNIT) SC SCH ×4 (05:38→20:11)
[2022-06-25] MEDS: predniSONE 20 MG TAB PO SCH (05:49)
[2022-06-25 06:24] LABS: BASOPHILS % (AUTO) 0 % (0-10); EOSINOPHILS # (AUTO) 0.1 10^3/uL (0.0-0.3); EOSINOPHILS % (AUTO) 1 % (0-10); HEMATOCRIT 48 % (35-52); HEMOGLOBIN 16.4 g/dL (11.5-16.0); LYMPHOCYTES # (AUTO) 2.2 10^3/uL (1.0-4.0); LYMPHOCYTES % (AUTO) 15 % (12-44); MEAN CORPUSCULAR HEMOGLOBIN 31 pg (25-34); MEAN CORPUSCULAR HGB CONC 34 g/dL (32-36); MEAN CORPUSCULAR VOLUME 91 fL (80-99); MEAN PLATELET VOLUME 9.6 fL (9.0-12.2); MONOCYTES % (AUTO) 7 % (0-12); NEUTROPHILS # (AUTO) 10.8 10^3/uL (1.8-7.8); NEUTROPHILS % (AUTO) 75 % (42-75); PLATELET COUNT 290 10^3/uL (130-400); WHITE BLOOD COUNT 14.4 10^3/uL (4.3-11.0)
[2022-06-25 06:48] LABS: ALBUMIN 3.6 GM/DL (3.2-4.5); POTASSIUM 3.2 MMOL/L (3.6-5.0)
[2022-06-25 06:49] LABS: CALCIUM 8.6 MG/DL (8.5-10.1)
[2022-06-25 06:51] LABS: TOTAL PROTEIN 6.5 GM/DL (6.4-8.2)
[2022-06-25 06:52] LABS: BILIRUBIN,TOTAL 0.9 MG/DL (0.1-1.0)
[2022-06-25 06:54] LABS: CREATININE SERUM 1.29 MG/DL (0.60-1.30)
[2022-06-25 06:57] LABS: MAGNESIUM 2.3 MG/DL (1.6-2.4)
[2022-06-25] MEDS: CALCIUM CARBONATE 600 MG (CALCARB) TAB PO SCH (08:32)
[2022-06-25] MEDS: DOCUSATE SODIUM 100 MG (COLACE) CAP PO SCH ×2 (08:32→20:10)
[2022-06-25] MEDS: SENNOSIDES 8.6 MG (SENOKOT) TAB PO SCH ×2 (08:32→20:10)
[2022-06-25] MEDS: PANTOPRAZOLE 40 MG (PROTONIX) TAB PO SCH (08:32)
[2022-06-25] MEDS: KCL 20 MEQ TAB (K-DUR) PO SCH ×3 (08:32→20:10)
[2022-06-25] MEDS: MAGNESIUM OXIDE (MAG-OX)400 MG TAB PO SCH (08:32)
[2022-06-25] MEDS: FLECAINIDE 100 MG (TAMBOCOR) TAB PO SCH ×2 (08:33→20:10)
[2022-06-25] MEDS: BUMETANIDE 1 MG (BUMEX) TAB PO SCH ×2 (08:33→20:10)
[2022-06-25] MEDS: LORATADINE (CLARITIN) 10 MG TAB PO SCH (08:33)
[2022-06-25] MEDS: ASPIRIN E.C. 81 MG (ECOTRIN) TAB PO SCH (08:33)
[2022-06-25] MEDS: ENOXAPARIN 40 MG/0.4 ML (LOVENOX) SYR SC SCH (08:34)
[2022-06-25] MEDS: VITAMIN D3 125 MCG (5,000 UNITS) CAPSULE PO SCH (08:34)
[2022-06-25] MEDS: polyethylene glycoL POWDER 17 GM (MIRALAX) PACK PO SCH (08:35)
[2022-06-25] MEDS: LACTULOSE SYRUP 10GM/15ML (ENULOSE) 30ML UDC PO PRN (08:47)
--- NOTE | 2022-06-25 10:30 | Physical Therapy Evaluation ---
PT Evaluation-General Medical Diagnosis Admission Date Jun 19, 2022 at 22:48 Medical Diagnosis: SOA chest pain Onset Date: Jun 19, 2022 Therapy Diagnosis Therapy Diagnosis: debility/weakness Precautions Precautions/Isolations: Standard Precautions Weight Bear Status Right Lower Extremity: Right Full Weight Bearing Left Lower Extremity: Left Full Weight Bearing Referral Physician: Amanda Reason for Referral: Evaluation/Treatment Medical History Pertinent Medical History: Atrial Fib, Arthritis, CAD, COPD, GERD, Heart Failure, HTN, Hypothroidism, HI Reviewed History: Yes Social History Home: Apartment Current Living Status: Alone Entry Into Home: Elevator Prior Prior Level of Function SCALE: Activities may be completed with or without assistive devices. 5-Xmzurlvqco-oadztgv completes the activity by him/herself with no assistance from a helper. 5-Set-up or Clean-up Assistance-helper sets up or cleans up; patient completes activity. [place] assists only prior to or following the activity. 4-Supervision or Touching Assistance-helper provides verbal cues and/or touching/steadying and/or contact guard assistance as patient completes activity. Assistance may be provided throughout the activity or intermittently. 3-Partial/Moderate Assistance-helper does LESS THAN HALF the effort. [place] lifts, holds or supports trunk or limbs, but provides less than half the effort. 2-Substantial/Maximal Assistance-helper does MORE THAN HALF the effort. [place] lifts or holds trunk or limbs and provides more than half the effort. 0-Eapdtkiaq-pvuxzn does ALL the effort. Patient does none of the effort to complete the activity. Or, the assistance of 2 or more helpers is required for the patient to complete the activity. If activity was not attempted, code reason: 7-Patient Refused. 9-Not Applicable-not attempted and the patient did not perform the activity before the current illness, exacerbation or injury. 10-Not Attempted due to Environmental Limitations-(lack of equipment, weather restraints, etc.). 88-Not Attempted due to Medical Conditions or Safety Concerns. Bed Mobility: 6 Transfers (B,C,W/C): 6 Gait: 6 Indoor Mobility (Ambulation): Independent Stairs: Not [place] Prior Devices Use: Walker PT Evaluation-Current Subjective Patient agrees to PT. Declined gait belt use. Objective Patient Orientation: Normal For Age Attachments: Oxygen, Mak Catheter, IV ROM/Strength ROM Lower Extremities bilateral LE WFL Strength Lower Extremities 4-/5 grossly bilateral LE all planes Sensory Vision: Wears Glasses Hearing: Functional Hand Dominance: Right Sensation Right Upper Extremit: Intact Sensation Left Upper Extremity: Intact Sensation Right Lower Extremit: Impaired Sensation Left Lower Extremity: Impaired Transfers Lying to Sitting/Side of Bed(Q: 4 Sit to Stand (QC): 4 Chair/Szm-bh-Hbtpv Xfer(QC): 4 Gait Mode of Locomotion: Walk Anticipated Mode of Locomotion: Walk Walk 10 feet (QC): 4 Walk 50 ft with 2 Turns(QC): 4 Distance: 80' Gait Assistive Device: FWW Comments/Gait Description slow, steady with no deviation Balance Sitting Static: Normal Sitting Dynamic: Normal Standing Static: Normal Standing Dynamic: Normal Assessment/Needs Patient will benefit from skilled PT to address functional strength and mobility to improve current LOF to safely return to home at maximum LOF. Rehab Potential: Fair PT Television Director Goals Television Director Goals PT Fdc Goals Time Frame: Jul 04, 2022 Roll Left & Right (QC): 6 Sit to Lying (QC): 6 Lying-Sitting on Side/Bed(QC): 6 Sit to Stand (QC): 6 Chair/Aqp-fk-Uaunz Xfer(QC): 6 Toilet Transfer (QC): 6 Car Transfer (QC): 6 Does the Patient Walk: Yes Walk 10 feet (QC): 6 Walk 50ft with 2 Turns (QC): 6 Walk 150 ft (QC): 6 PT Plan Problem List Problem List: Activity Tolerance, Functional Strength, Safety, Gait, Transfer Treatment/Plan Treatment Plan: Continue Plan of Care Treatment Plan: Bed Mobility, Education, Functional Activity Luz, Functional Strength, Gait, Safety, Therapeutic Exercise, Transfers Treatment Duration: Jul 04, 2022 Frequency: 6 times per week Estimated Hrs Per Day: .25 hour per day Time Time In: 849 Time Out: 900 DATE: Jun 25, 2022 Total Billed Treatment Time: 11 Total Billed Treatment 1 visit EVMod 11 min BARRY MORAN PT Jun 25, 2022 10:30
[2022-06-25] MEDS ORDERED: BISACODYL 10 MG SUPP (DULCOLAX) PR ONE (10:45)
[2022-06-25] MEDS ORDERED: BISACODYL 10 MG SUPP (DULCOLAX) PR NR (11:00)
--- NOTE | 2022-06-25 11:23 | Occupational Ther Daily Note ---
OT Current Status-Daily Note Subjective Pt alert, lying in bed. Pt agrees to therapy. No c/o pain at this time. Mental Status/Objective Patient Orientation: Person, Place, Time, Situation Attachments: IV, Telemetry ADL-Treatment Pt able to don/doff socks by self after set up. SBA for supine to EOB. Assist to manipulate tubing and IV pole when ambulating using FWW around room 2x's. After session, pt sitting recliner with call light/phone in reach. All needs met in room. Therapy Code Descriptions/Definitions Functional [place] Measure: 0=Not Assessed/NA 4=Minimal Assistance 1=Total Assistance 5=Supervision or Setup 2=Maximal Assistance 6=Modified [place] 3=Moderate Assistance 7=Complete IndependenceSCALE: Activities may be completed with or without assistive devices. 4-Rtyrevucck-pvkrdpl completes the activity by him/herself with no assistance from a helper. 5-Set-up or Clean-up Assistance-helper sets up or cleans up; patient completes activity. [place] assists only prior to or following the activity. 4-Supervision or Touching Assistance-helper provides verbal cues and/or touching/steadying and/or contact guard assistance as patient completes activity. Assistance may be provided throughout the activity or intermittently. 3-Partial/Moderate Assistance-helper does LESS THAN HALF the effort. [place] lifts, holds or supports trunk or limbs, but provides less than half the effort. 2-Substantial/Maximal Assistance-helper does MORE THAN HALF the effort. [place] lifts or holds trunk or limbs and provides more than half the effort. 8-Kcnjeckpk-bbgjhg does ALL the effort. Patient does none of the effort to complete the activity. Or, the assistance of 2 or more helpers is required for the patient to complete the activity. If activity was not attempted, code reason: 7-Patient Refused. 9-Not Applicable-not attempted and the patient did not perform the activity before the current illness, exacerbation or injury. 10-Not Attempted due to Environmental Limitations-(lack of equipment, weather restraints, etc.). 88-Not Attempted due to Medical Conditions or Safety Concerns. On/Off Footwear: 5 OT Radar Repairer Goals Radar Repairer Goals Time Frame: Jul 07, 2022 Oral Hygiene (QC): 6 Toileting Hygiene (QC): 4 Shower/Bathe Self (QC): 3 Upper Body Dressing (QC): 3 Lower Body Dressing (QC): 3 On/Off Footwear (QC): 3 Additional Goals: 1-Demonstrate ADL Tasks, 2-Verbalize Understanding, 3- ImproveStrength/Luz 1=Demonstrate adherence to instructed precautions during ADL tasks. 2=Patient will verbalize/demonstrate understanding of assistive devices/modifications for ADL. 3=Patient will improve strength/tolerance for activity to enable patient to perform ADL's. OT Education/Plan Problem List/Assessment Assessment: Decreased Activ Tolerance, Impaired Self-Care Skills Discharge Recommendations Plan/Recommendations: Continue POC Treatment Plan/Plan of Care Patient would benefit from OT for education, treatment and training to promote independence in ADL's, mobility, safety and/or upper extremity function for ADL's. Plan of Care: ADL Retraining, Functional Mobility, Group Exercise/Act as Ind, UE Funct Exercise/Act Treatment Duration: Jul 07, 2022 Frequency: 3 times per week (3-5x/week ) Estimated Hrs Per Day: .25 hour per day Rehab Potential: Fair Time Start Time: 08:49 Stop Time: 09:00 DATE: Jun 25, 2022 Total Time Billed (hr/min): 11 Billed Treatment Time 1 visit-FA 1 (11 min) KRYS FINLEY Jun 25, 2022 11:23
--- NOTE | 2022-06-25 11:48 | Progress Note - Hospitalist ---
[facility] 06/25/22 1148: Subjective HPI/CC On Admission Date Seen by Provider: Jun 25, 2022 Time Seen by Provider: 10:45 Chief complaint: Dyspnea requiring BiPAP consistent with acute respiratory failure HPI: This is a 71-year-old female who has a past medical history of COVID a few weeks ago and has continued to decline. She presented to the ER with acute respiratory failure requiring BiPAP and IV steroids. No evidence of any pulmonary embolism or bacterial pneumonia. Currently she is still a bit tachypneic but improved. Cardiology will be consulted for chest pain. All home meds were restarted. Subjective/Events-last exam Today she has had two episodes of tachycardia leaving her fatigued and short of breath. She became nauseous this morning after the first episode of tachycardia and vomited. Dr. Vera, cardiology, has already increased her flecainide and diltiazem for persistent afib. She has also not had a BM and notes she has used suppositories at home for previous episodes of constipation. She is having some abdominal pressure and pain due to the constipation. She notes ambulating around her room. She is also having some mild sinus congestion and notes a "scratchy" throat. Review of Systems General: Fatigue HEENT: Sinus Congestion, Sore Throat Pulmonary: Dyspnea; No Cough Cardiovascular: No: Chest Pain, Edema Gastrointestinal: Abdominal Pain, Constipation Genitourinary: No Dysuria, No Frequency Objective Exam Vital Signs Vital Signs Date Time Temp Pulse Resp B/P (MAP) Pulse Ox O2 Delivery O2 Flow Rate FiO2 06/25/22 09:11 142 06/25/22 08:00 36.2 17 108/68 (81) 96 Nasal Cannula 3.00 06/22/22 16:00 21 Capillary Refill : Less Than 3 Seconds General Appearance: No Apparent Distress, Chronically ill HEENT: PERRL/EOMI, Pharynx Normal, Other (minimal maxillary sinus tenderness) Neck: Full Range of Motion, Non Tender Respiratory: Chest Non Tender, Lungs Clear, Normal Breath Sounds, No Accessory Muscle Use, No Respiratory Distress Cardiovascular: No Edema, No Murmur, Normal Peripheral Pulses, Irregularly Irregular Gastrointestinal: Normal Bowel Sounds, Non Tender, Soft Extremity: Normal Capillary Refill, No Pedal Edema Neurologic/Psychiatric: Alert, Oriented x3, No Motor/Sensory Deficits, Normal Mood/Affect Skin: Normal Color, Warm/Dry Results/Procedures Lab Laboratory Tests 06/25/22 06:15 Patient resulted labs reviewed. Assessment/Plan Assessment and Plan Assess & Plan/Chief Complaint Assessment: Bacteremia Altered Mental Status- ?encepholapthy from steroids - resolved Tachycardia Elevated blood glucose Acute hypoxic respiratory failure requiring BiPAP Acute exacerbation of COPD Acute on chronic HFpEF Volume overload Recent COVID Chronic pain Arthritis Atrial fibrillation status post watchman Hypertension CAD Chronic insomnia Constipation Hypokalemia Plan: IV Cefepime Head CT had no evidence of acute intracranial process Continue sliding scale insulin Oxygen support as needed Home meds Dr. Vera appreciated Continue OT, PT and IS Continue prednisone Bisacodyl suppository K replacement ordered ORSAURA GONZALES DO 06/26/22 0452: Objective Exam General Appearance: No Apparent Distress, WD/WN, Chronically ill Respiratory: Lungs Clear, Normal Breath Sounds Cardiovascular: Irregularly Irregular Assessment/Plan Assessment and Plan Assess & Plan/Chief Complaint Supportive care Monitor closely Supervisory-Addendum Brief Verification & Attestation Participated in pt care: history, MDM, physical Personally performed: exam, history, MDM, supervision of care Care discussed with: Medical Student Procedures: n/a Results interpretation: Verified all documentation Verification and Attestation of Medical Student E/M Service A medical student performed and documented this service in my presence. I r eviewed and verified all information documented by the medical student and made modifications to such information, when appropriate. I personally performed the physical exam and medical decision making. Rosaura Gonzales Jun 26, 2022,04:52 [place] Jun 25, 2022 11:48 ROSAURA GONZALES DO Jun 26, 2022 04:52
--- NOTE | 2022-06-25 12:44 | Diagnostic Imaging Report ---
EXAMINATION: Chest 2 view HISTORY: Shortness of breath COMPARISON: 06/22/2022 FINDINGS: Heart size and pulmonary vasculature are normal. The lungs are clear without consolidation, pleural effusion, or pneumothorax. Degenerative changes of the thoracic spine. Osseous structures are otherwise intact. Right-sided cardiac device is present. IMPRESSION: 1. No acute radiographic abnormality in the chest. Dictated by: Dictated on workstation # [id number]
--- NOTE | 2022-06-25 14:27 | Cardiology Progress Note ---
Progress Note-Cardiology Events since last exam Date Seen by Provider: Jun 25, 2022 Time Seen by Provider: 14:24 Events since last exam I am following her due to heart failure and atrial fibrillation. This morning she had nausea and vomiting. She developed tachycardia following that episode. Now she is complaining of constipation and abdominal discomfort. She denies chest discomfort, dyspnea, palpitations, syncope, or ankle edema. Certain portions of this document may have been dictated utilizing voice recognition technology. Inherent to this technology, typographical and grammatical errors may exist. As much as I am diligent to identify and correct these mistakes, some errors may remain in the document. Vitals Last set of Vitals Signs Vital Signs 06/22/22 06/25/22 06/25/22 06/25/22 16:00 12:07 12:15 13:06 Temp 36.1 Pulse 76 Resp 20 B/P (MAP) 138/81 (100) Pulse Ox 98 O2 Delivery Nasal Cannula O2 Flow Rate 3.00 FiO2 21 Labs Labs Laboratory Tests 06/25/22 06:15 Exam Vital Signs Vital Signs Date Time Temp Pulse Resp B/P (MAP) Pulse Ox O2 Delivery O2 Flow Rate FiO2 06/25/22 13:06 76 06/25/22 12:15 20 138/81 (100) 98 Nasal Cannula 3.00 06/25/22 12:07 36.1 06/22/22 16:00 21 Physical Exam General: Alert. No acute distress. Eye: No xanthelasma. HENT: Normocephalic. Neck: Jugular venous pressure does not appear elevated. Respiratory: Lungs are clear to auscultation. Respirations are non-labored. Breath sounds are equal. Symmetrical chest wall expansion. Cardiovascular: Normal rate. Irregular rhythm. No murmur. No gallop. No edema. Gastrointestinal: Soft but diffusely tender. Normal bowel sounds. Skin: Warm. Dry. Neurologic: Alert and oriented to person, place, time. Cranial nerves 3-11 grossly intact. Psychiatric: Cooperative. Appropriate mood & affect. Labs Laboratory Tests Test 06/24/22 16:03 06/24/22 19:14 06/25/22 05:25 06/25/22 06:15 Range/Units Glucometer 293 H 254 H 128 H 70-110 MG/DL White Blood Count 14.4 H 4.3-11.0 10^3/uL Red Blood Count 5.30 H 3.80-5.11 10^6/uL Hemoglobin 16.4 H 11.5-16.0 g/dL Hematocrit 48 35-52 % Mean Corpuscular Volume 91 80-99 fL Mean Corpuscular Hemoglobin 31 25-34 pg Mean Corpuscular Hemoglobin Concent 34 32-36 g/dL Red Cell Distribution Width 11.9 10.0-14.5 % Platelet Count 290 130-400 10^3/uL Mean Platelet Volume 9.6 9.0-12.2 fL Immature Granulocyte % (Auto) 2 % Neutrophils (%) (Auto) 75 42-75 % Lymphocytes (%) (Auto) 15 12-44 % Monocytes (%) (Auto) 7 0-12 % Eosinophils (%) (Auto) 1 0-10 % Basophils (%) (Auto) 0 0-10 % Neutrophils # (Auto) 10.8 H 1.8-7.8 10^3/uL Lymphocytes # (Auto) 2.2 1.0-4.0 10^3/uL Monocytes # (Auto) 1.0 0.0-1.0 10^3/uL Eosinophils # (Auto) 0.1 0.0-0.3 10^3/uL Basophils # (Auto) 0.0 0.0-0.1 10^3/uL Immature Granulocyte # (Auto) 0.3 H 0.0-0.1 10^3/uL Sodium Level 141 135-145 MMOL/L Potassium Level 3.2 L 3.6-5.0 MMOL/L Chloride Level 95 L 98-107 MMOL/L Carbon Dioxide Level 33 H 21-32 MMOL/L Anion Gap 13 5-14 MMOL/L Blood Urea Nitrogen 40 H 7-18 MG/DL Creatinine 1.29 0.60-1.30 MG/DL Estimat Glomerular Filtration Rate 44 BUN/Creatinine Ratio 31 Glucose Level 102 70-105 MG/DL Calcium Level 8.6 8.5-10.1 MG/DL Corrected Calcium 8.9 8.5-10.1 MG/DL Magnesium Level 2.3 1.6-2.4 MG/DL Total Bilirubin 0.9 0.1-1.0 MG/DL Aspartate Amino Transf (AST/SGOT) 28 5-34 U/L Alanine Aminotransferase (ALT/SGPT) 55 0-55 U/L Alkaline Phosphatase 105 40-136 U/L Total Protein 6.5 6.4-8.2 GM/DL Albumin 3.6 3.2-4.5 GM/DL Test 06/25/22 10:10 Range/Units Glucometer 156 H 70-110 MG/DL Diagnosis/Problems Diagnosis/Problems (1) Acute on chronic heart failure with preserved ejection fraction (HFpEF) Assessment & Plan: I suspect she had some decompensation of her heart failure at the time of admission due to stopping her diuretic and other cardiac medications. Bumetanide typically has good bioavailability and gastrointestinal absorption when given orally. I gave her 1 dose of IV bumetanide on 06/21. She underwent a CT angiogram of the chest that did not show any evidence of pulmonary emboli, aortic disease or pulmonary infiltrate or heart failure. Follow-up chest x-ray from 06/23 did show some increase in pulmonary vascular congestion. I recommend she continue on the current dose of bumetanide. I will obtain a follow-up chest x-ray tomorrow. (2) Paroxysmal atrial fibrillation Assessment & Plan: She remains in atrial fibrillation. This was probably due to stopping flecainide. I restarted her flecainide and diltiazem at the time of admission. She is not on oral anticoagulation because she has a Watchman device. I increased the dose of flecainide to 100 mg twice daily on 06/22 and then 150 mg twice daily on 06/24. I also increased her dose of diltiazem. (3) Primary hypertension Assessment & Plan: Her blood pressures have been intermittently elevated. I changed the diltiazem to 300 mg daily and the first dose was 06/25. (4) Pulmonary hypertension Assessment & Plan: Her echocardiogram from this admission showed pulmonary hypertension that actually appears improved compared to a previous echocardiogram. This is most likely multifactorial due to some underlying pulmonary disease as well as chronic heart failure. She may benefit from home oxygen if she is not already using this at home. As above, she had a CT angiogram that did not show any evidence of pulmonary embolism. (5) Chest pain Assessment & Plan: Etiology unclear. She has had this in the past. She did not report chest discomfort to me in the past 2 days she denies a history of esophageal reflux disease. She did have a nuclear stress test in 2019 that was normal. I started her on a proton pump inhibitor to see if this helps with the chest discomfort. If the chest discomfort recurs, we may need to consider a repeat stress test. (6) Complete heart block Assessment & Plan: She has a permanent pacemaker in place that appears to be functioning normally. (7) Aortic regurgitation Assessment & Plan: She has mild to moderate aortic regurgitation as noted on her echocardiogram from this admission. This should not be causing symptoms but will need to be followed by her regular battery tester field following discharge. (8) Mitral regurgitation Assessment & Plan: She also has moderate mitral regurgitation which I would not suspect would cause symptoms but will need to be followed in the long run by her regular battery tester field at the outside facility. (9) Cardiac pacemaker in situ Assessment & Plan: This is monitored by her regular battery tester field. (10) Stage 3a chronic kidney disease Assessment & Plan: Her renal function will need to be monitored closely now that she is back on her diuretic. (11) Mixed hyperlipidemia Assessment & Plan: Continue statin medication. The medication reconciliation showed this was twice daily. I have asked for clarification on this. We do not usually give statin medications twice a day. I have ordered this for once daily. (12) Obesity Assessment & Plan: She needs to work on weight loss. BRIDGETT FELIPE JR, MD Jun 25, 2022 14:27
[2022-06-25] MEDS: MONTELUKAST 10 MG (SINGULAIR) TAB PO SCH (20:10)
[2022-06-25] MEDS: ZOLPIDEM 5 MG (AMBIEN) TAB PO SCH (20:10)
[2022-06-25] MEDS: traZODone 100 MG (DESYREL) TAB PO SCH (20:10)
[2022-06-25] MEDS: PARoxetine 20 MG (PAXIL) TAB PO SCH (20:10)
[2022-06-25] MEDS: ALPRAZolam 0.5 MG (XANAX) TAB PO PRN (23:06)
[2022-06-26 00:43] VITALS: BP_SYST 113; BP_DIAS 8; BP_DIAS 80
[2022-06-26] MEDS: CEFEPIME INJECTION 1,000 MG in NS (IVPB) 50 ML IV SCH ×3 (00:44→16:18)
[2022-06-26 03:41] VITALS: BP 103/67
[2022-06-26 03:59] LABS: BASOPHILS # (AUTO) 0.1 10^3/uL (0.0-0.1); BASOPHILS % (AUTO) 0 % (0-10); EOSINOPHILS # (AUTO) 0.2 10^3/uL (0.0-0.3); EOSINOPHILS % (AUTO) 1 % (0-10); HEMATOCRIT 52 % (35-52); HEMOGLOBIN 17.8 g/dL (11.5-16.0); LYMPHOCYTES # (AUTO) 2.5 10^3/uL (1.0-4.0); LYMPHOCYTES % (AUTO) 11 % (12-44); MEAN CORPUSCULAR HEMOGLOBIN 31 pg (25-34); MEAN CORPUSCULAR HGB CONC 34 g/dL (32-36); MEAN CORPUSCULAR VOLUME 91 fL (80-99); MEAN PLATELET VOLUME 10.3 fL (9.0-12.2); MONOCYTES # (AUTO) 1.4 10^3/uL (0.0-1.0); MONOCYTES % (AUTO) 6 % (0-12); NEUTROPHILS # (AUTO) 17.9 10^3/uL (1.8-7.8); NEUTROPHILS % (AUTO) 80 % (42-75); PLATELET COUNT 283 10^3/uL (130-400); WHITE BLOOD COUNT 22.3 10^3/uL (4.3-11.0)
[2022-06-26] MEDS: inSUlin ASPART (NovoLOG) 1 UNIT/0.01 ML (CHARGE PER UNIT) SC SCH ×4 (05:40→20:36)
[2022-06-26] MEDS: predniSONE 20 MG TAB PO SCH (05:44)
[2022-06-26 06:13] LABS: ALBUMIN 3.7 GM/DL (3.2-4.5); POTASSIUM 3.2 MMOL/L (3.6-5.0)
[2022-06-26 06:14] LABS: CALCIUM 8.9 MG/DL (8.5-10.1)
[2022-06-26 06:15] LABS: TOTAL PROTEIN 6.8 GM/DL (6.4-8.2)
[2022-06-26 06:17] LABS: BILIRUBIN,TOTAL 1.4 MG/DL (0.1-1.0)
[2022-06-26 06:19] LABS: CREATININE SERUM 1.22 MG/DL (0.60-1.30)
[2022-06-26 06:23] LABS: MAGNESIUM 2.4 MG/DL (1.6-2.4)
[2022-06-26] MEDS: RT-ALBUTEROL/IPRATROPIUM 3 ML (DUONEB) VIAL INH SCH ×2 (07:16→19:08)
[2022-06-26 08:24] VITALS: BP 112/67
[2022-06-26] MEDS: FLECAINIDE 100 MG (TAMBOCOR) TAB PO SCH ×2 (08:47→20:44)
[2022-06-26] MEDS: CALCIUM CARBONATE 600 MG (CALCARB) TAB PO SCH (08:47)
[2022-06-26] MEDS: BUMETANIDE 1 MG (BUMEX) TAB PO SCH ×2 (08:48→20:43)
[2022-06-26] MEDS: ENOXAPARIN 40 MG/0.4 ML (LOVENOX) SYR SC SCH (08:48)
[2022-06-26] MEDS: KCL 20 MEQ TAB (K-DUR) PO SCH ×3 (08:48→20:37)
[2022-06-26] MEDS: PANTOPRAZOLE 40 MG (PROTONIX) TAB PO SCH (08:48)
[2022-06-26] MEDS: LORATADINE (CLARITIN) 10 MG TAB PO SCH (08:48)
[2022-06-26] MEDS: ASPIRIN E.C. 81 MG (ECOTRIN) TAB PO SCH (08:48)
[2022-06-26] MEDS: MAGNESIUM OXIDE (MAG-OX)400 MG TAB PO SCH (08:48)
[2022-06-26] MEDS: DOCUSATE SODIUM 100 MG (COLACE) CAP PO SCH ×2 (08:48→20:36)
[2022-06-26] MEDS: SENNOSIDES 8.6 MG (SENOKOT) TAB PO SCH ×2 (08:48→20:36)
[2022-06-26] MEDS: VITAMIN D3 125 MCG (5,000 UNITS) CAPSULE PO SCH (08:48)
[2022-06-26] MEDS: polyethylene glycoL POWDER 17 GM (MIRALAX) PACK PO SCH (08:49)
--- NOTE | 2022-06-26 09:53 | Physical Therapy Daily Note ---
PT Daily Note-Current Subjective Patient states she is feeling better than yesterday. Pain Section J - Health Conditions 1. Rarely or not at all 2. Occasionally 3. Frequently 4. Almost constantly 8. Unable to answer Pain Effect on Sleep: 1 Pain Interference with Therapy: 1 Pain Interference w/Day-to-Day: 1 Mental Status Patient Orientation: Normal For Age Attachments: Oxygen, Mak Catheter, IV Transfers SCALE: Activities may be completed with or without assistive devices. 2-Abbxhitjkc-obzsvgj completes the activity by him/herself with no assistance f rom a helper. 5-Set-up or Clean-up Assistance-helper sets up or cleans up; patient completes activity. [place] assists only prior to or following the activity. 4-Supervision or Touching Assistance-helper provides verbal cues and/or touching/steadying and/or contact guard assistance as patient completes activity. Assistance may be provided throughout the activity or intermittently. 3-Partial/Moderate Assistance-helper does LESS THAN HALF the effort. [place] lifts, holds or supports trunk or limbs, but provides less than half the effort. 2-Substantial/Maximal Assistance-helper does MORE THAN HALF the effort. [place] lifts or holds trunk or limbs and provides more than half the effort. 4-Cxrhjyfis-mrhzjt does ALL the effort. Patient does none of the effort to complete the activity. Or, the assistance of 2 or more helpers is required for the patient to complete the activity. If activity was not attempted, code reason: 7-Patient Refused. 9-Not Applicable-not attempted and the patient did not perform the activity before the current illness, exacerbation or injury. 10-Not Attempted due to Environmental Limitations-(lack of equipment, weather restraints, etc.). 88-Not Attempted due to Medical Conditions or Safety Concerns. Lying to Sitting/Side of Bed(Q: 6 Sit to Stand (QC): 5 Chair/Gfe-ks-Cnoqe Xfer(QC): 5 Weight Bearing Right Lower Extremity: Right Full Weight Bearing Left Lower Extremity: Left Full Weight Bearing Gait Training Distance: 100' Walk 10 feet (QC): 5 Walk 50 ft with 2 Turns(QC): 5 Gait Assistive Device: FWW slow, steady, functional gait sequence Assessment Patient is up in recliner with needs met. Patient improving with treatment plan and is highly motivated with progress. PT Machine Coil Assembler Goals Machine Coil Assembler Goals PT Shelter Goals Time Frame: Jul 04, 2022 Roll Left & Right (QC): 6 Sit to Lying (QC): 6 Lying-Sitting on Side/Bed(QC): 6 Sit to Stand (QC): 6 Chair/Zhn-by-Dmoto Xfer(QC): 6 Toilet Transfer (QC): 6 Car Transfer (QC): 6 Does the Patient Walk: Yes Walk 10 feet (QC): 6 Walk 50ft with 2 Turns (QC): 6 Walk 150 ft (QC): 6 PT Plan Treatment/Plan Treatment Plan: Continue Plan of Care Treatment Plan: Bed Mobility, Education, Functional Activity Luz, Functional Strength, Gait, Safety, Therapeutic Exercise, Transfers Treatment Duration: Jul 04, 2022 Frequency: 6 times per week Estimated Hrs Per Day: .25 hour per day Time Time In: 857 Time Out: 908 DATE: Jun 26, 2022 Total Billed Treatment Time: 11 Total Billed Treatment 1 visit FA 11 min BARRY MORAN PT Jun 26, 2022 09:53
[2022-06-26 12:00] VITALS: BP 123/87
--- NOTE | 2022-06-26 12:04 | Occupational Ther Daily Note ---
OT Current Status-Daily Note Subjective Pt alert, sitting in recliner. Pt agrees to therapy. No c/o pain. Pt states that she is feeling better. Mental Status/Objective Patient Orientation: Person, Place, Time, Situation Attachments: Mak Catheter, IV, Oxygen (3L) ADL-Treatment Pt agrees to sponge bath. Pt ambulated to bathroom and sat at sink to complete sponge bath with bath packs, oral care and dressing. Upper body bathing and dressing by self after set up. SBA for lower body bathing and dressing after set up. Independent with oral care. After session, pt lying in bed with call light/phone in reach. All needs met in room. Therapy Code Descriptions/Definitions Functional [place] Measure: 0=Not Assessed/NA 4=Minimal Assistance 1=Total Assistance 5=Supervision or Setup 2=Maximal Assistance 6=Modified [place] 3=Moderate Assistance 7=Complete IndependenceSCALE: Activities may be completed with or without assistive devices. 0-Jpwpwfbwym-kliufoz completes the activity by him/herself with no assistance from a helper. 5-Set-up or Clean-up Assistance-helper sets up or cleans up; patient completes activity. [place] assists only prior to or following the activity. 4-Supervision or Touching Assistance-helper provides verbal cues and/or touching/steadying and/or contact guard assistance as patient completes activity. Assistance may be provided throughout the activity or intermittently. 3-Partial/Moderate Assistance-helper does LESS THAN HALF the effort. [place] lifts, holds or supports trunk or limbs, but provides less than half the effort. 2-Substantial/Maximal Assistance-helper does MORE THAN HALF the effort. [place] lifts or holds trunk or limbs and provides more than half the effort. 9-Mjsasgxlf-xkujus does ALL the effort. Patient does none of the effort to complete the activity. Or, the assistance of 2 or more helpers is required for the patient to complete the activity. If activity was not attempted, code reason: 7-Patient Refused. 9-Not Applicable-not attempted and the patient did not perform the activity before the current illness, exacerbation or injury. 10-Not Attempted due to Environmental Limitations-(lack of equipment, weather restraints, etc.). 88-Not Attempted due to Medical Conditions or Safety Concerns. Oral Hygiene (QC): 6 Shower/Bathe Self (QC): 4 Upper Body Dressing (QC): 5 Lower Body Dressing (QC): 4 OT Cco Goals Assisted Goals Time Frame: Jul 07, 2022 Oral Hygiene (QC): 6 Toileting Hygiene (QC): 4 Shower/Bathe Self (QC): 3 Upper Body Dressing (QC): 3 Lower Body Dressing (QC): 3 On/Off Footwear (QC): 3 Additional Goals: 1-Demonstrate ADL Tasks, 2-Verbalize Understanding, 3- ImproveStrength/Luz 1=Demonstrate adherence to instructed precautions during ADL tasks. 2=Patient will verbalize/demonstrate understanding of assistive dev ices/modifications for ADL. 3=Patient will improve strength/tolerance for activity to enable patient to perform ADL's. OT Education/Plan Problem List/Assessment Assessment: Decreased Activ Tolerance, Impaired Self-Care Skills Discharge Recommendations Plan/Recommendations: Continue POC Treatment Plan/Plan of Care Patient would benefit from OT for education, treatment and training to promote independence in ADL's, mobility, safety and/or upper extremity function for ADL's. Plan of Care: ADL Retraining, Functional Mobility, Group Exercise/Act as Ind, UE Funct Exercise/Act Treatment Duration: Jul 07, 2022 Frequency: 3 times per week (3-5x/week ) Estimated Hrs Per Day: .25 hour per day Rehab Potential: Fair Time Start Time: 11:40 Stop Time: 12:06 DATE: Jun 26, 2022 Total Time Billed (hr/min): 26 Billed Treatment Time 1 visit-ADL 2 (26 min) KRYS FINLEY Jun 26, 2022 12:04
[2022-06-26] MEDS: ALPRAZolam 0.5 MG (XANAX) TAB PO PRN (14:21)
--- NOTE | 2022-06-26 14:21 | Progress Note - Hospitalist ---
[facility] 06/26/22 1421: Subjective HPI/CC On Admission Date Seen by Provider: Jun 26, 2022 Time Seen by Provider: 11:15 Chief complaint: Dyspnea requiring BiPAP consistent with acute respiratory failure HPI: This is a 71-year-old female who has a past medical history of COVID a few weeks ago and has continued to decline. She presented to the ER with acute respiratory failure requiring BiPAP and IV steroids. No evidence of any pulmonary embolism or bacterial pneumonia. Currently she is still a bit tachypneic but improved. Cardiology will be consulted for chest pain. All home meds were restarted. Subjective/Events-last exam Today she is feeling much better than yesterday. She is no longer having nausea or vomiting. She had a BM last night after suppository was given, it was formed without blood. Pt reports a cough that is mild. Denies SOB/CP. She is working with PT, walking hallways. WBC elevated at 22.3 likely due to steroids. Review of Systems Pulmonary: No Dyspnea; Cough Cardiovascular: No: Chest Pain Gastrointestinal: No: Nausea, Vomiting, Abdominal Pain, Constipation Objective Exam Vital Signs Vital Signs Date Time Temp Pulse Resp B/P (MAP) Pulse Ox O2 Delivery O2 Flow Rate FiO2 06/26/22 13:00 92 06/26/22 12:00 36.8 18 123/87 (99) 98 Nasal Cannula 3.00 06/22/22 16:00 21 Capillary Refill : Less Than 3 Seconds General Appearance: No Apparent Distress, Chronically ill HEENT: PERRL/EOMI, Moist Mucous Membranes Neck: Full Range of Motion Respiratory: Chest Non Tender, Lungs Clear, Normal Breath Sounds, No Accessory Muscle Use, No Respiratory Distress Cardiovascular: No Edema, No Gallop, No JVD, No Murmur, Normal Peripheral Pulses, Irregularly Irregular Gastrointestinal: Normal Bowel Sounds, Non Tender, Soft Extremity: Normal Capillary Refill, No Calf Tenderness, No Pedal Edema Neurologic/Psychiatric: Alert, Oriented x3, Normal Mood/Affect Skin: Normal Color, Warm/Dry Results/Procedures Lab Laboratory Tests 06/26/22 03:50 06/26/22 05:40 Patient resulted labs reviewed. Assessment/Plan Assessment and Plan Assess & Plan/Chief Complaint Assessment: Bacteremia Altered Mental Status- ?encepholapthy from steroids - resolved Tachycardia Elevated blood glucose Acute hypoxic respiratory failure requiring BiPAP Acute exacerbation of COPD Acute on chronic HFpEF Volume overload Recent COVID Chronic pain Arthritis Atrial fibrillation status post watchman Hypertension CAD Chronic insomnia Constipation- resolved Hypokalemia Plan: IV Cefepime Head CT had no evidence of acute intracranial process Continue sliding scale insulin Oxygen support as needed Home meds Dr. Vera appreciated Continue OT, PT and IS Taper prednisone Stool softeners Continue K replacement Remove wilder catheter Supportive care ROSAURA GONZALES DO 06/27/22 0527: Supervisory-Addendum Brief Verification & Attestation Participated in pt care: history, MDM, physical Personally performed: exam, history, MDM, supervision of care Care discussed with: Medical Student Procedures: n/a Results interpretation: Verified all documentation Verification and Attestation of Medical Student E/M Service A medical student performed and documented this service in my presence. I reviewed and verified all information documented by the medical student and made modifications to such information, when appropriate. I personally performed the physical exam and medical decision making. Rosaura Gonzales Jun 27, 2022,05:27 CLEO NOLASCO Jun 26, 2022 14:21 ROSAURA GONZALES DO Jun 27, 2022 05:27
[2022-06-26] MEDS: ACETAMINOPHEN 325 MG TABLET PO PRN (14:23)
[2022-06-26 15:23] VITALS: BP 139/86
[2022-06-26 19:45] VITALS: BP 112/68
[2022-06-26] MEDS: MONTELUKAST 10 MG (SINGULAIR) TAB PO SCH (20:36)
[2022-06-26] MEDS: PARoxetine 20 MG (PAXIL) TAB PO SCH (20:36)
[2022-06-26] MEDS: traZODone 100 MG (DESYREL) TAB PO SCH (20:37)
[2022-06-26] MEDS: ZOLPIDEM 5 MG (AMBIEN) TAB PO SCH (20:43)
[2022-06-26] MEDS: HYDROcodone/APAP 5 MG/325 MG (LORTAB) TAB PO PRN (20:48)
[2022-06-27] VITALS (7 sets, daily range): BP systolic 104–139; BP diastolic 59–83
[2022-06-27] MEDS: CEFEPIME INJECTION 1,000 MG in NS (IVPB) 50 ML IV SCH ×3 (01:00→17:39)
[2022-06-27 04:36] LABS: BASOPHILS % (AUTO) 0 % (0-10); EOSINOPHILS # (AUTO) 0.2 10^3/uL (0.0-0.3); EOSINOPHILS % (AUTO) 1 % (0-10); HEMATOCRIT 48 % (35-52); HEMOGLOBIN 16.7 g/dL (11.5-16.0); LYMPHOCYTES # (AUTO) 2.4 10^3/uL (1.0-4.0); LYMPHOCYTES % (AUTO) 14 % (12-44); MEAN CORPUSCULAR HEMOGLOBIN 31 pg (25-34); MEAN CORPUSCULAR HGB CONC 35 g/dL (32-36); MEAN CORPUSCULAR VOLUME 89 fL (80-99); MEAN PLATELET VOLUME 9.7 fL (9.0-12.2); MONOCYTES # (AUTO) 1.1 10^3/uL (0.0-1.0); MONOCYTES % (AUTO) 7 % (0-12); NEUTROPHILS # (AUTO) 13.1 10^3/uL (1.8-7.8); NEUTROPHILS % (AUTO) 77 % (42-75); PLATELET COUNT 273 10^3/uL (130-400)
[2022-06-27 04:47] LABS: ALBUMIN 3.6 GM/DL (3.2-4.5); POTASSIUM 3.1 MMOL/L (3.6-5.0)
[2022-06-27 04:48] LABS: CALCIUM 8.7 MG/DL (8.5-10.1)
[2022-06-27 04:49] LABS: TOTAL PROTEIN 6.4 GM/DL (6.4-8.2)
[2022-06-27 04:51] LABS: BILIRUBIN,TOTAL 1.2 MG/DL (0.1-1.0)
[2022-06-27 04:53] LABS: CREATININE SERUM 1.16 MG/DL (0.60-1.30)
[2022-06-27 04:56] LABS: MAGNESIUM 2.2 MG/DL (1.6-2.4)
[2022-06-27] MEDS: inSUlin ASPART (NovoLOG) 1 UNIT/0.01 ML (CHARGE PER UNIT) SC SCH ×4 (05:04→20:39)
[2022-06-27 05:56] LABS: LYMPHOCYTES % (MANUAL) 21 %; MONOCYTES % (MANUAL) 6 %; NEUTROPHILS % (MANUAL) 73 %; RBC MORPH NORMAL
--- NOTE | 2022-06-27 06:29 | Progress Note - Hospitalist ---
Subjective HPI/CC On Admission Date Seen by Provider: Jun 27, 2022 Time Seen by Provider: 11:00 Chief complaint: Dyspnea requiring BiPAP consistent with acute respiratory failure HPI: This is a 71-year-old female who has a past medical history of COVID a few weeks ago and has continued to decline. She presented to the ER with acute respiratory failure requiring BiPAP and IV steroids. No evidence of any pulmonary embolism or bacterial pneumonia. Currently she is still a bit tachypneic but improved. Cardiology will be consulted for chest pain. All home meds were restarted. Subjective/Events-last exam Doing much better Walking around better Breathing better Oxygen maintain No pain Review of Systems General: Fatigue, Malaise Pulmonary: Dyspnea, Cough Objective Exam Vital Signs Vital Signs Date Time Temp Pulse Resp B/P (MAP) Pulse Ox O2 Delivery O2 Flow Rate FiO2 06/28/22 04:16 36.4 74 16 105/65 (78) 93 Room Air 06/27/22 23:35 21 06/27/22 12:09 3.00 Capillary Refill : Less Than 3 Seconds General Appearance: No Apparent Distress, WD/WN, Chronically ill Respiratory: No Accessory Muscle Use, No Respiratory Distress, Decreased Breath Sounds Cardiovascular: Regular Rate, Rhythm Neurologic/Psychiatric: Alert, Oriented x3, No Motor/Sensory Deficits, Depresse d Affect Results/Procedures Lab Laboratory Tests 06/28/22 04:39 Patient resulted labs reviewed. Assessment/Plan Assessment and Plan Assess & Plan/Chief Complaint Assessment: Bacteremia Altered Mental Status- ?encepholapthy from steroids - resolved Tachycardia Elevated blood glucose Acute hypoxic respiratory failure requiring BiPAP Acute exacerbation of COPD Acute on chronic HFpEF Volume overload Recent COVID Chronic pain Arthritis Atrial fibrillation status post watchman Hypertension CAD Chronic insomnia Constipation- resolved Hypokalemia Plan: IV Cefepime Head CT had no evidence of acute intracranial process Continue sliding scale insulin Oxygen support as needed Home meds Dr. Vera appreciated Continue OT, PT and IS Taper prednisone Stool softeners Continue K replacement Remove wilder catheter Supportive care Critical Care Critically Ill Patient Diagnosis/Problems Diagnosis/Problems (1) Acute respiratory failure with hypoxia (2) COPD exacerbation (3) Atypical chest pain Status: Acute (4) Dizziness Status: Acute (5) Anxiety (6) Atrial fibrillation KARMEN GONZALES DO Jun 27, 2022 06:29
[2022-06-27] MEDS ORDERED: predniSONE 10 MG TAB PO SCH (07:00)
[2022-06-27] MEDS: RT-ALBUTEROL/IPRATROPIUM 3 ML (DUONEB) VIAL INH SCH ×2 (08:09→23:08)
[2022-06-27] MEDS: ASPIRIN E.C. 81 MG (ECOTRIN) TAB PO SCH (09:32)
[2022-06-27] MEDS: ENOXAPARIN 40 MG/0.4 ML (LOVENOX) SYR SC SCH (09:32)
[2022-06-27] MEDS: VITAMIN D3 125 MCG (5,000 UNITS) CAPSULE PO SCH (09:32)
[2022-06-27] MEDS: LORATADINE (CLARITIN) 10 MG TAB PO SCH (09:32)
[2022-06-27] MEDS: DOCUSATE SODIUM 100 MG (COLACE) CAP PO SCH ×2 (09:32→20:39)
[2022-06-27] MEDS: MAGNESIUM OXIDE (MAG-OX)400 MG TAB PO SCH (09:32)
[2022-06-27] MEDS: KCL 20 MEQ TAB (K-DUR) PO SCH ×3 (09:33→20:39)
[2022-06-27] MEDS: polyethylene glycoL POWDER 17 GM (MIRALAX) PACK PO SCH (09:33)
[2022-06-27] MEDS: SENNOSIDES 8.6 MG (SENOKOT) TAB PO SCH ×2 (09:33→20:39)
[2022-06-27] MEDS: CALCIUM CARBONATE 600 MG (CALCARB) TAB PO SCH (09:39)
[2022-06-27] MEDS: PANTOPRAZOLE 40 MG (PROTONIX) TAB PO SCH (09:39)
[2022-06-27] MEDS: FLECAINIDE 100 MG (TAMBOCOR) TAB PO SCH ×2 (09:39→20:40)
[2022-06-27] MEDS: BUMETANIDE 1 MG (BUMEX) TAB PO SCH ×2 (09:39→20:40)
--- NOTE | 2022-06-27 13:43 | Physical Therapy Daily Note ---
PT Daily Note-Current Subjective Pt laying R sidelying upon arrival. Pt agrees to PT for amb. Pain Location Body Site: Back Pain Description: Tightness Comment: Reports but doesn't rate Section J - Health Conditions 1. Rarely or not at all 2. Occasionally 3. Frequently 4. Almost constantly 8. Unable to answer Pain Effect on Sleep: 1 Pain Interference with Therapy: 1 Pain Interference w/Day-to-Day: 1 Mental Status Patient Orientation: Person, Place, Situation Transfers SCALE: Activities may be completed with or without assistive devices. 7-Lambalzzij-fhxtzpy completes the activity by him/herself with no assistance from a helper. 5-Set-up or Clean-up Assistance-helper sets up or cleans up; patient completes activity. [place] assists only prior to or following the activity. 4-Supervision or Touching Assistance-helper provides verbal cues and/or touching/steadying and/or contact guard assistance as patient completes activity. Assistance may be provided throughout the activity or intermittently. 3-Partial/Moderate Assistance-helper does LESS THAN HALF the effort. [place] lifts, holds or supports trunk or limbs, but provides less than half the effort. 2-Substantial/Maximal Assistance-helper does MORE THAN HALF the effort. [place] lifts or holds trunk or limbs and provides more than half the effort. 6-Ycxrhhwnw-avxovk does ALL the effort. Patient does none of the effort to complete the activity. Or, the assistance of 2 or more helpers is required for the patient to complete the activity. If activity was not attempted, code reason: 7-Patient Refused. 9-Not Applicable-not attempted and the patient did not perform the activity before the current illness, exacerbation or injury. 10-Not Attempted due to Environmental Limitations-(lack of equipment, weather restraints, etc.). 88-Not Attempted due to Medical Conditions or Safety Concerns. Lying to Sitting/Side of Bed(Q: 5 Sit to Stand (QC): 5 Weight Bearing Right Lower Extremity: Right Full Weight Bearing Left Lower Extremity: Left Full Weight Bearing Gait Training Does the Patient Walk?: Yes Distance: 150' x2 Walk 10 feet (QC): 5 Walk 50 ft with 2 Turns(QC): 5 Walk 150 ft (QC): 5 Gait Assistive Device: FWW Treatments TF to EOB then stands and amb. in hallway before returning to room to rest. All needs met, call light in hand. Assessment Current Status: Good Progress Pt is gaining strength and mobility as noticed by the Nurse (who took care of pt a few days ago) & saw pt walking in halls. PT Body Shop Supervisor Goals Body Shop Supervisor Goals PT Body Shop Supervisor Goals Time Frame: Jul 04, 2022 Roll Left & Right (QC): 6 Sit to Lying (QC): 6 Lying-Sitting on Side/Bed(QC): 6 Sit to Stand (QC): 6 Chair/Ykk-vm-Jvcwb Xfer(QC): 6 Toilet Transfer (QC): 6 Car Transfer (QC): 6 Does the Patient Walk: Yes Walk 10 feet (QC): 6 Walk 50ft with 2 Turns (QC): 6 Walk 150 ft (QC): 6 PT Plan Problem List Problem List: Activity Tolerance Treatment/Plan Treatment Plan: Continue Plan of Care Treatment Plan: Bed Mobility, Education, Functional Activity Luz, Functional Strength, Gait, Safety, Therapeutic Exercise, Transfers Treatment Duration: Jul 04, 2022 Frequency: 6 times per week Estimated Hrs Per Day: .25 hour per day Time Time In: 1310 Time Out: 1322 DATE: Jun 27, 2022 Total Billed Treatment Time: 12 Total Billed Treatment 1, GT (12m) JUAN MOULTON PTA Jun 27, 2022 13:43
[2022-06-27] MEDS: ALPRAZolam 0.5 MG (XANAX) TAB PO PRN ×2 (14:05→22:30)
--- NOTE | 2022-06-27 16:27 | Progress Note - Cardiology ---
Cardiology SOAP Progress Note Subjective: Gen malaise and weakness No n/v/d No palp or syncope or shortness of breath at rest R upper chest wall and shoulder discomfort, mild, chronic, unremitting, nonradiating, present for weeks No swelling No focal weakness Objective: I&O/Vital Signs 06/27/22 06/27/22 06/27/22 06/27/22 07:00 08:00 08:11 08:25 Temp 37.0 Pulse 78 78 Resp 19 B/P (MAP) 129/83 (98) Pulse Ox 96 99 O2 Delivery Nasal Cannula Nasal Cannula Room Air O2 Flow Rate 3.00 4.00 06/27/22 06/27/22 06/27/22 12:09 13:00 15:34 Temp 36.5 37.3 Pulse 97 107 81 Resp 18 18 B/P (MAP) 138/77 (97) 118/76 (90) Pulse Ox 98 94 O2 Delivery Nasal Cannula Room Air O2 Flow Rate 3.00 06/27/22 00:00 Intake Total 1240 ml Output Total 1075 ml Balance 165 ml Constitutional: AAO x 3, well-developed, well-nourished Respiratory: No accessory muscle use; other (fair to good, bilateral air entry; bs diminished at the bases) Cardiovascular: irregularly irregular, S1 and S2, systolic murmur (soft CANDELARIA at card base) Gastrointestional: No tender; soft; No guarding; audible bowel sounds Extremities: No clubbing, No cyanosis, No significant edema Neurologic/Psychiatric: oriented x 3, other (moves all limbs equally) Skin: normal color, warm/dry; No rash on exposed areas, No ulcerations on exposed areas Results/Procedures: Labs Laboratory Tests 06/26/22 20:05: Glucometer 268H 06/27/22 04:34: White Blood Count 17.0H, Red Blood Count 5.41H, Hemoglobin 16.7H, Hematocrit 48, Mean Corpuscular Volume 89, Mean Corpuscular Hemoglobin 31, Mean Corpuscular Hemoglobin Concent 35, Red Cell Distribution Width 11.6, Platelet Count 273, Mean Platelet Volume 9.7, Immature Granulocyte % (Auto) 1, Neutrophils (%) (Auto) 77H, Lymphocytes (%) (Auto) 14, Monocytes (%) (Auto) 7, Eosinophils (%) (Auto) 1, Basophils (%) (Auto) 0, Neutrophils # (Auto) 13.1H, Lymphocytes # (Auto) 2.4, Monocytes # (Auto) 1.1H, Eosinophils # (Auto) 0.2, Basophils # (Auto) 0.0, Immature Granulocyte # (Auto) 0.2H, Neutrophils % (Manual) 73, Lymphocytes % (Manual) 21, Monocytes % (Manual) 6, Blood Morphology Comment NORMAL, Sodium Level 139, Potassium Level 3.1L, Chloride Level 94L, Carbon Dioxide Level 32, Anion Gap 13, Blood Urea Nitrogen 36H, Creatinine 1.16, Estimat Glomerular Filtration Rate 50, BUN/Creatinine Ratio 31, Glucose Level 92, Calcium Level 8.7, Corrected Calcium 9.0, Magnesium Level 2.2, Total Bilirubin 1.2H, Aspartate Amino Transf (AST/SGOT) 24, Alanine Aminotransferase (ALT/SGPT) 47, Alkaline Phosphatase 98, Total Protein 6.4, Albumin 3.6 06/27/22 11:06: Glucometer 233H 06/27/22 15:01: Glucometer 187H Microbiology 06/19/22 Urine Culture - Final, Complete Mixed Bacterial Cookie 06/19/22 Blood Culture - Final, Complete No growth Laboratory Tests 06/26/22 03:50 06/26/22 05:40 06/27/22 04:34 A/P: Assessment: HFpEF - treated with diuretics - echo 06/30/22: LVEF 55-60%, mild conc LVH, mildly dilated atria, AoV sclerosis w/o stenosis, mild to mod AI, mod MR & TR, PASP 47 mmHg PAF - stroke prophylaxis with Watchman (in place) Systemic hypertension - controlled Pulmonary hypertension of undetermined etiology - see echo report above Chronic chest discomfort of undetermined etiology, likely non-cardiac Complete heart block treated with ppm CKD 3a Mixed hyperlipidemia Plan: * I interviewed and examined her, and reviewed her chart * Continue current cardiac regimen * Replenish K * Monitor labs SHAHBAZ FAJARDO MD [facility] CCDS Jun 27, 2022 16:27
[2022-06-27] MEDS ORDERED: KCL 20 MEQ TAB (K-DUR) PO NR (16:45)
[2022-06-27] MEDS: PARoxetine 20 MG (PAXIL) TAB PO SCH (20:39)
[2022-06-27] MEDS: MONTELUKAST 10 MG (SINGULAIR) TAB PO SCH (20:39)
[2022-06-27] MEDS: traZODone 100 MG (DESYREL) TAB PO SCH (20:40)
[2022-06-27] MEDS: ZOLPIDEM 5 MG (AMBIEN) TAB PO SCH (20:40)
[2022-06-27] MEDS: HYDROcodone/APAP 5 MG/325 MG (LORTAB) TAB PO PRN (22:30)
[2022-06-28] VITALS (7 sets, daily range): BP systolic 105–138; BP diastolic 56–79
[2022-06-28] MEDS: CEFEPIME INJECTION 1,000 MG in NS (IVPB) 50 ML IV SCH ×3 (01:34→16:33)
[2022-06-28 05:10] LABS: BASOPHILS % (AUTO) 0 % (0-10); EOSINOPHILS # (AUTO) 0.1 10^3/uL (0.0-0.3); EOSINOPHILS % (AUTO) 1 % (0-10); HEMATOCRIT 46 % (35-52); HEMOGLOBIN 15.4 g/dL (11.5-16.0); LYMPHOCYTES # (AUTO) 2.4 10^3/uL (1.0-4.0); LYMPHOCYTES % (AUTO) 16 % (12-44); MEAN CORPUSCULAR HEMOGLOBIN 31 pg (25-34); MEAN CORPUSCULAR HGB CONC 34 g/dL (32-36); MEAN CORPUSCULAR VOLUME 90 fL (80-99); MEAN PLATELET VOLUME 9.9 fL (9.0-12.2); MONOCYTES % (AUTO) 7 % (0-12); NEUTROPHILS # (AUTO) 10.9 10^3/uL (1.8-7.8); NEUTROPHILS % (AUTO) 75 % (42-75); PLATELET COUNT 259 10^3/uL (130-400); WHITE BLOOD COUNT 14.6 10^3/uL (4.3-11.0)
[2022-06-28 05:39] LABS: ALBUMIN 3.4 GM/DL (3.2-4.5); BILIRUBIN,TOTAL 1.1 MG/DL (0.1-1.0); CALCIUM 8.5 MG/DL (8.5-10.1); CREATININE SERUM 1.05 MG/DL (0.60-1.30); POTASSIUM 3.3 MMOL/L (3.6-5.0); TOTAL PROTEIN 6.2 GM/DL (6.4-8.2)
[2022-06-28] MEDS: inSUlin ASPART (NovoLOG) 1 UNIT/0.01 ML (CHARGE PER UNIT) SC SCH ×4 (05:40→20:37)
[2022-06-28] MEDS: predniSONE 10 MG TAB PO SCH (06:03)
--- NOTE | 2022-06-28 06:35 | Progress Note - Hospitalist ---
Subjective HPI/CC On Admission Date Seen by Provider: Jun 28, 2022 Time Seen by Provider: 11:00 Chief complaint: Dyspnea requiring BiPAP consistent with acute respiratory failure HPI: This is a 71-year-old female who has a past medical history of COVID a few weeks ago and has continued to decline. She presented to the ER with acute respiratory failure requiring BiPAP and IV steroids. No evidence of any pulmonary embolism or bacterial pneumonia. Currently she is still a bit tachypneic but improved. Cardiology will be consulted for chest pain. All home meds were restarted. Subjective/Events-last exam Patient doing a lot better Ambulating around really well Less short of breath Wears oxygen at night now Review of Systems General: Fatigue, Malaise Pulmonary: Dyspnea Objective Exam Vital Signs Vital Signs Date Time Temp Pulse Resp B/P (MAP) Pulse Ox O2 Delivery O2 Flow Rate FiO2 06/28/22 15:52 36.3 100 18 134/79 (97) 96 Room Air 06/28/22 10:11 3.00 06/27/22 23:35 21 Capillary Refill : Less Than 3 Seconds General Appearance: No Apparent Distress, WD/WN, Chronically ill Respiratory: Lungs Clear, Normal Breath Sounds, Decreased Breath Sounds Cardiovascular: Regular Rate, Rhythm Neurologic/Psychiatric: Alert, Oriented x3 Results/Procedures Lab Laboratory Tests 06/28/22 04:39 Patient resulted labs reviewed. Assessment/Plan Assessment and Plan Assess & Plan/Chief Complaint Assessment: Bacteremia Altered Mental Status- ?encepholapthy from steroids - resolved Tachycardia Elevated blood glucose Acute hypoxic respiratory failure requiring BiPAP Acute exacerbation of COPD Acute on chronic HFpEF Volume overload Recent COVID Chronic pain Arthritis Atrial fibrillation status post watchman Hypertension CAD Chronic insomnia Constipation- resolved Hypokalemia Plan: IV Cefepime Head CT had no evidence of acute intracranial process Continue sliding scale insulin Oxygen support as needed Home meds Dr. Vera appreciated Continue OT, PT and IS Taper prednisone Stool softeners Continue K replacement Remove wilder catheter Supportive care Critical Care Critically Ill Patient Diagnosis/Problems Diagnosis/Problems (1) Acute respiratory failure with hypoxia (2) COPD exacerbation (3) Atypical chest pain Status: Acute (4) Dizziness Status: Acute (5) Anxiety (6) Atrial fibrillation KARMEN GONZALES DO Jun 28, 2022 06:35
[2022-06-28] MEDS: ENOXAPARIN 40 MG/0.4 ML (LOVENOX) SYR SC SCH (09:23)
[2022-06-28] MEDS: polyethylene glycoL POWDER 17 GM (MIRALAX) PACK PO SCH (09:23)
[2022-06-28] MEDS: LORATADINE (CLARITIN) 10 MG TAB PO SCH (09:25)
[2022-06-28] MEDS: ASPIRIN E.C. 81 MG (ECOTRIN) TAB PO SCH (09:25)
[2022-06-28] MEDS: PANTOPRAZOLE 40 MG (PROTONIX) TAB PO SCH (09:25)
[2022-06-28] MEDS: VITAMIN D3 125 MCG (5,000 UNITS) CAPSULE PO SCH (09:25)
[2022-06-28] MEDS: KCL 20 MEQ TAB (K-DUR) PO SCH ×3 (09:25→20:38)
[2022-06-28] MEDS: SENNOSIDES 8.6 MG (SENOKOT) TAB PO SCH ×2 (09:25→20:38)
[2022-06-28] MEDS: CALCIUM CARBONATE 600 MG (CALCARB) TAB PO SCH (09:25)
[2022-06-28] MEDS: DOCUSATE SODIUM 100 MG (COLACE) CAP PO SCH ×2 (09:26→20:38)
[2022-06-28] MEDS: FLECAINIDE 100 MG (TAMBOCOR) TAB PO SCH ×2 (09:26→20:38)
[2022-06-28] MEDS: MAGNESIUM OXIDE (MAG-OX)400 MG TAB PO SCH (09:26)
[2022-06-28] MEDS: BUMETANIDE 1 MG (BUMEX) TAB PO SCH ×2 (09:27→20:38)
[2022-06-28] MEDS: HYDROcodone/APAP 5 MG/325 MG (LORTAB) TAB PO PRN (13:40)
--- NOTE | 2022-06-28 14:18 | Progress Note - Cardiology ---
Cardiology SOAP Progress Note Subjective: Gen malaise and weakness present No focal weakness No n/v/d Mild, continuing, R upper cp No syncope or palp No shortness of breath at rest Objective: I&O/Vital Signs 06/28/22 06/28/22 06/28/22 06/28/22 04:16 07:00 07:49 08:40 Temp 36.4 37.0 Pulse 74 60 68 Resp 16 18 B/P (MAP) 105/65 (78) 106/56 (73) Pulse Ox 93 93 92 O2 Delivery Room Air Room Air Nasal Cannula O2 Flow Rate 4.00 06/28/22 06/28/22 06/28/22 10:11 11:44 12:45 Temp 36.6 Pulse 84 82 Resp 16 B/P (MAP) 121/65 (83) Pulse Ox 97 O2 Delivery Nasal Cannula Room Air O2 Flow Rate 3.00 06/28/22 00:00 Intake Total 1180 ml Output Total 1850 ml Balance -670 ml Constitutional: AAO x 3, well-developed, well-nourished Respiratory: No accessory muscle use; other (fair to good, bilateral air entry; bs diminished at the bases) Cardiovascular: irregularly irregular, S1 and S2, systolic murmur (soft CANDELARIA at card base) Gastrointestional: No tender; soft; No guarding; audible bowel sounds Extremities: No clubbing, No cyanosis, No significant edema Neurologic/Psychiatric: oriented x 3, other (moves all limbs equally) Skin: normal color, warm/dry; No rash on exposed areas, No ulcerations on e xposed areas Results/Procedures: Labs Laboratory Tests 06/27/22 15:01: Glucometer 187H 06/27/22 19:26: Glucometer 283H 06/28/22 04:39: White Blood Count 14.6H, Red Blood Count 5.05, Hemoglobin 15.4, Hematocrit 46, Mean Corpuscular Volume 90, Mean Corpuscular Hemoglobin 31, Mean Corpuscular Hemoglobin Concent 34, Red Cell Distribution Width 11.6, Platelet Count 259, Mean Platelet Volume 9.9, Immature Granulocyte % (Auto) 1, Neutrophils (%) (Auto) 75, Lymphocytes (%) (Auto) 16, Monocytes (%) (Auto) 7, Eosinophils (%) (Auto) 1, Basophils (%) (Auto) 0, Neutrophils # (Auto) 10.9H, Lymphocytes # (Auto) 2.4, Monocytes # (Auto) 1.0, Eosinophils # (Auto) 0.1, Basophils # (Auto) 0.0, Immature Granulocyte # (Auto) 0.2H, Sodium Level 141, Potassium Level 3.3L, Chloride Level 98, Carbon Dioxide Level 32, Anion Gap 11, Blood Urea Nitrogen 28H, Creatinine 1.05, Estimat Glomerular Filtration Rate 57, BUN/Creatinine Ratio 27, Glucose Level 96, Calcium Level 8.5, Corrected Calcium 9.0, Magnesium Level 2.0, Total Bilirubin 1.1H, Aspartate Amino Transf (AST/SGOT) 25, Alanine Aminotransferase (ALT/SGPT) 43, Alkaline Phosphatase 88, Total Protein 6.2L, Albumin 3.4 06/28/22 08:35: Glucometer 100 06/28/22 13:53: Glucometer 182H Microbiology 06/19/22 Urine Culture - Final, Complete Mixed Bacterial Cookie 06/19/22 Blood Culture - Final, Complete No growth Laboratory Tests 06/27/22 04:34 06/28/22 04:39 A/P: Assessment: HFpEF - treated with diuretics - echo 06/30/22: LVEF 55-60%, mild conc LVH, mildly dilated atria, AoV sclerosis w/o stenosis, mild to mod AI, mod MR & TR, PASP 47 mmHg PAF - stroke prophylaxis with Watchman (in place) Systemic hypertension - controlled Pulmonary hypertension of undetermined etiology - see echo report above Chronic chest discomfort of undetermined etiology, likely non-cardiac Complete heart block treated with ppm CKD 3a Mixed hyperlipidemia Hypokalemia Plan: * Still hypokalemic. Replenish K * Monitor labs SHAHBAZ FAJARDO MD FACP [facility] CCDS Jun 28, 2022 14:18
[2022-06-28] MEDS ORDERED: KCL 20 MEQ TAB (K-DUR) PO NR (14:30)
[2022-06-28] MEDS: ZOLPIDEM 5 MG (AMBIEN) TAB PO SCH (20:37)
[2022-06-28] MEDS: traZODone 100 MG (DESYREL) TAB PO SCH (20:38)
[2022-06-28] MEDS: MONTELUKAST 10 MG (SINGULAIR) TAB PO SCH (20:38)
[2022-06-28] MEDS: PARoxetine 20 MG (PAXIL) TAB PO SCH (20:38)
[2022-06-28] MEDS ORDERED: PROMETHAZINE INJ 25 MG/ML (PHENERGAN) AMP IVP PRN (23:30)
[2022-06-29] MEDS: CEFEPIME INJECTION 1,000 MG in NS (IVPB) 50 ML IV SCH (00:38)
[2022-06-29 03:59] VITALS: BP 113/72
[2022-06-29 04:58] LABS: BASOPHILS % (AUTO) 0 % (0-10); EOSINOPHILS # (AUTO) 0.1 10^3/uL (0.0-0.3); EOSINOPHILS % (AUTO) 1 % (0-10); HEMATOCRIT 44 % (35-52); HEMOGLOBIN 15.3 g/dL (11.5-16.0); LYMPHOCYTES # (AUTO) 2.8 10^3/uL (1.0-4.0); LYMPHOCYTES % (AUTO) 23 % (12-44); MEAN CORPUSCULAR HEMOGLOBIN 31 pg (25-34); MEAN CORPUSCULAR HGB CONC 35 g/dL (32-36); MEAN CORPUSCULAR VOLUME 90 fL (80-99); MEAN PLATELET VOLUME 9.9 fL (9.0-12.2); MONOCYTES # (AUTO) 1.1 10^3/uL (0.0-1.0); MONOCYTES % (AUTO) 9 % (0-12); NEUTROPHILS # (AUTO) 8.2 10^3/uL (1.8-7.8); NEUTROPHILS % (AUTO) 66 % (42-75); PLATELET COUNT 266 10^3/uL (130-400); WHITE BLOOD COUNT 12.4 10^3/uL (4.3-11.0)
[2022-06-29 05:05] LABS: ALBUMIN 3.4 GM/DL (3.2-4.5)
[2022-06-29 05:06] LABS: POTASSIUM 3.5 MMOL/L (3.6-5.0)
[2022-06-29 05:07] LABS: CALCIUM 8.6 MG/DL (8.5-10.1)
[2022-06-29 05:08] LABS: TOTAL PROTEIN 6.1 GM/DL (6.4-8.2)
[2022-06-29 05:10] LABS: BILIRUBIN,TOTAL 0.8 MG/DL (0.1-1.0)
[2022-06-29 05:12] LABS: CREATININE SERUM 1.07 MG/DL (0.60-1.30)
[2022-06-29] MEDS: inSUlin ASPART (NovoLOG) 1 UNIT/0.01 ML (CHARGE PER UNIT) SC SCH ×3 (06:13→15:41)
[2022-06-29] MEDS: predniSONE 10 MG TAB PO SCH (06:14)
[2022-06-29 07:37] VITALS: BP 101/64
[2022-06-29] MEDS: CALCIUM CARBONATE 600 MG (CALCARB) TAB PO SCH (08:44)
[2022-06-29] MEDS: VITAMIN D3 125 MCG (5,000 UNITS) CAPSULE PO SCH (08:44)
[2022-06-29] MEDS: ASPIRIN E.C. 81 MG (ECOTRIN) TAB PO SCH (08:44)
[2022-06-29] MEDS: BUMETANIDE 1 MG (BUMEX) TAB PO SCH (08:44)
[2022-06-29] MEDS: MAGNESIUM OXIDE (MAG-OX)400 MG TAB PO SCH (08:44)
[2022-06-29] MEDS: FLECAINIDE 100 MG (TAMBOCOR) TAB PO SCH (08:44)
[2022-06-29] MEDS: LORATADINE (CLARITIN) 10 MG TAB PO SCH (08:44)
[2022-06-29] MEDS: KCL 20 MEQ TAB (K-DUR) PO SCH ×2 (08:44→12:02)
[2022-06-29] MEDS: PANTOPRAZOLE 40 MG (PROTONIX) TAB PO SCH (08:44)
[2022-06-29] MEDS: ENOXAPARIN 40 MG/0.4 ML (LOVENOX) SYR SC SCH (08:45)
--- NOTE | 2022-06-29 08:57 | Cardiology Progress Note ---
Progress Note-Cardiology Events since last exam Date Seen by Provider: Jun 29, 2022 Time Seen by Provider: 08:55 Events since last exam I am following her due to heart failure. Her breathing is much improved. She hopes to be able to go back home to her senior apartment in [place] today. She denies chest discomfort, palpitations, syncope, or ankle edema. Certain portions of this document may have been dictated utilizing voice recognition technology. Inherent to this technology, typographical and gramma tical errors may exist. As much as I am diligent to identify and correct these mistakes, some errors may remain in the document. Vitals Last set of Vitals Signs Vital Signs 06/27/22 06/29/22 06/29/22 06/29/22 23:35 07:37 08:29 08:55 Temp 36.7 Pulse 77 Resp 19 B/P (MAP) 101/64 (76) Pulse Ox 95 O2 Delivery Room Air O2 Flow Rate 2.00 FiO2 21 Labs Labs Laboratory Tests 06/29/22 04:45 Exam Vital Signs Vital Signs Date Time Temp Pulse Resp B/P (MAP) Pulse Ox O2 Delivery O2 Flow Rate FiO2 06/29/22 08:55 Room Air 06/29/22 08:29 2.00 06/29/22 07:37 36.7 77 19 101/64 (76) 95 06/27/22 23:35 21 Physical Exam General: Alert. No acute distress. Eye: No xanthelasma. HENT: Normocephalic. Neck: Jugular venous pressure does not appear elevated. Respiratory: Lungs are clear to auscultation. Respirations are non-labored. Breath sounds are equal. Symmetrical chest wall expansion. Cardiovascular: Normal rate. Irregular rhythm. No murmur. No gallop. No edema. Gastrointestinal: Soft but diffusely tender. Normal bowel sounds. Skin: Warm. Dry. Neurologic: Alert and oriented to person, place, time. Cranial nerves 3-11 grossly intact. Psychiatric: Cooperative. Appropriate mood & affect. Labs Laboratory Tests Test 06/28/22 13:53 06/28/22 20:04 06/29/22 04:45 06/29/22 11:23 Range/Units Glucometer 182 H 298 H 293 H 70-110 MG/DL White Blood Count 12.4 H 4.3-11.0 10^3/uL Red Blood Count 4.89 3.80-5.11 10^6/uL Hemoglobin 15.3 11.5-16.0 g/dL Hematocrit 44 35-52 % Mean Corpuscular Volume 90 80-99 fL Mean Corpuscular Hemoglobin 31 25-34 pg Mean Corpuscular Hemoglobin Concent 35 32-36 g/dL Red Cell Distribution Width 11.6 10.0-14.5 % Platelet Count 266 130-400 10^3/uL Mean Platelet Volume 9.9 9.0-12.2 fL Immature Granulocyte % (Auto) 1 % Neutrophils (%) (Auto) 66 42-75 % Lymphocytes (%) (Auto) 23 12-44 % Monocytes (%) (Auto) 9 0-12 % Eosinophils (%) (Auto) 1 0-10 % Basophils (%) (Auto) 0 0-10 % Neutrophils # (Auto) 8.2 H 1.8-7.8 10^3/uL Lymphocytes # (Auto) 2.8 1.0-4.0 10^3/uL Monocytes # (Auto) 1.1 H 0.0-1.0 10^3/uL Eosinophils # (Auto) 0.1 0.0-0.3 10^3/uL Basophils # (Auto) 0.0 0.0-0.1 10^3/uL Immature Granulocyte # (Auto) 0.1 0.0-0.1 10^3/uL Sodium Level 140 135-145 MMOL/L Potassium Level 3.5 L 3.6-5.0 MMOL/L Chloride Level 98 98-107 MMOL/L Carbon Dioxide Level 32 21-32 MMOL/L Anion Gap 10 5-14 MMOL/L Blood Urea Nitrogen 30 H 7-18 MG/DL Creatinine 1.07 0.60-1.30 MG/DL Estimat Glomerular Filtration Rate 56 BUN/Creatinine Ratio 28 Glucose Level 101 70-105 MG/DL Calcium Level 8.6 8.5-10.1 MG/DL Corrected Calcium 9.1 8.5-10.1 MG/DL Magnesium Level 2.0 1.6-2.4 MG/DL Total Bilirubin 0.8 0.1-1.0 MG/DL Aspartate Amino Transf (AST/SGOT) 34 5-34 U/L Alanine Aminotransferase (ALT/SGPT) 51 0-55 U/L Alkaline Phosphatase 87 40-136 U/L Total Protein 6.1 L 6.4-8.2 GM/DL Albumin 3.4 3.2-4.5 GM/DL Diagnosis/Problems Diagnosis/Problems (1) Acute on chronic heart failure with preserved ejection fraction (HFpEF) Assessment & Plan: I suspect she had some decompensation of her heart failure at the time of admission due to stopping her diuretic and other cardiac medications. Her chest x-ray from 06/25 was clear. I recommend she continue on the current dose of bumetanide. From a cardiac standpoint, she may be ready for discharge to home once her noncardiac issues have improved. She can follow-up with her regular project planner at [facility] in [place], [place] after discharge. (2) Paroxysmal atrial fibrillation Assessment & Plan: She remains in atrial fibrillation. This was probably due to stopping flecainide. I restarted her flecainide and diltiazem at the time of admission. She is not on oral anticoagulation because she has a Watchman device. I increased the dose of flecainide to 100 mg twice daily on 06/22 and then 150 mg twice daily on 06/24. I also increased her dose of diltiazem. She remains in atrial fibrillation despite adjusting these medications. This will need to be addressed by her regular project planner following discharge. It appears as though she may have failed therapy with flecainide. I recommend she continue these medications at the time of discharge. (3) Primary hypertension Assessment & Plan: Her blood pressures had been intermittently elevated. I changed the diltiazem to 300 mg daily and the first dose was 06/25. (4) Pulmonary hypertension Assessment & Plan: Her echocardiogram from this admission showed pulmonary hype rtension that actually appears improved compared to a previous echocardiogram. This is most likely multifactorial due to some underlying pulmonary disease as well as chronic heart failure. She may benefit from home oxygen if she is not already using this at home. As above, she had a CT angiogram that did not show any evidence of pulmonary embolism. (5) Complete heart block Assessment & Plan: She has a permanent pacemaker in place that appears to be functioning normally. (6) Aortic regurgitation Assessment & Plan: She has mild to moderate aortic regurgitation as noted on her echocardiogram from this admission. This should not be causing symptoms but will need to be followed by her regular project planner following discharge. (7) Mitral regurgitation Assessment & Plan: She also has moderate mitral regurgitation which I would not suspect would cause symptoms but will need to be followed in the long run by her regular project planner at the outside facility. (8) Cardiac pacemaker in situ Assessment & Plan: This is monitored by her regular project planner. (9) Stage 3a chronic kidney disease Assessment & Plan: Her renal function will need to be monitored closely now that she is back on her diuretic. (10) Mixed hyperlipidemia Assessment & Plan: Continue statin medication. The medication reconciliation showed this was twice daily. I have asked for clarification on this. We do not usually give statin medications twice a day. I have ordered this for once daily. (11) Obesity Assessment & Plan: She needs to work on weight loss. BRIDGETT FELIPE JR, MD Jun 29, 2022 08:57
[2022-06-29] MEDS: DOCUSATE SODIUM 100 MG (COLACE) CAP PO SCH (10:24)
[2022-06-29] MEDS: SENNOSIDES 8.6 MG (SENOKOT) TAB PO SCH (10:24)
[2022-06-29] MEDS: polyethylene glycoL POWDER 17 GM (MIRALAX) PACK PO SCH (10:24)
[2022-06-29 11:46] VITALS: BP 114/65
--- NOTE | 2022-06-29 12:25 | Discharge Summary ---
Diagnosis/Chief Complaint Date of Admission Jun 19, 2022 at 22:48 Date of Discharge Discharge Summary-Simple/Stand Consultations Discharge Physical Examination Allergies: Coded Allergies: Sulfa (Sulfonamide Antibiotics) (Verified Allergy, Unknown, 04/26/19) morphine (Verified Allergy, Unknown, 04/26/19) Vitals & I&Os Vital Sign - Last 12Hours Date Time Temp Pulse Resp B/P (MAP) Pulse Ox O2 Delivery O2 Flow Rate FiO2 06/29/22 11:46 36.5 90 18 114/65 (81) 92 Room Air 06/29/22 08:29 2.00 06/27/22 23:35 21 Intake and Output 06/29/22 00:00 Intake Total 1900 ml Output Total 1100 ml Balance 800 ml Hospital Course See final discharge diagnosis. Discharge Instructions to patient/family Please see electronic discharge instructions given to patient. Discharge Medications Reviewed and agree with Discharge Medication list on patient's Discharge Instruction sheet NOHA BARAJAS MD Jun 29, 2022 12:25
[2022-06-29] MEDS ORDERED: DILT300C52 PO (12:39)
[2022-06-29] MEDS ORDERED: FLEC100T PO (12:39)
[2022-06-29] MEDS ORDERED: LORA10TA7 PO (12:39)
[2022-06-29] MEDS ORDERED: BUME2TAB7 PO (12:39)
[2022-06-29] MEDS ORDERED: PRD10T PO (12:39)
--- NOTE | 2022-06-29 12:40 | Discharge Summary ---
Discharge [facility] Reconcile Patient Problems Problems Reviewed?: Yes Discharge Medications New, Converted or Re-Newed RX: Transmitted to Pharmacy New Medications: Bumetanide (Bumetanide) 2 Mg Tablet 2 MG PO BID, #60 TAB Diltiazem HCl (Diltiazem 24Hr ER) 300 Mg Cap.er.24h 300 MG PO DAILY@0900, #30 CAP Flecainide Acetate (Flecainide Acetate) 100 Mg Tablet 150 MG PO BID for 30 Days, TAB Loratadine (Loratadine) 10 Mg Tablet 10 MG PO DAILY, #30 TAB Prednisone (Prednisone) 10 Mg Tab 10 MG PO DAILY@0700, #7 TAB Continued Medications: Aspirin (Aspirin EC) 81 Mg Tablet.dr 81 MG PO DAILY Atorvastatin Calcium (Atorvastatin Calcium) 20 Mg Tablet 20 MG PO DAILY, TAB Calcium Carbonate (Calcium) 600 Mg Tablet 600 MG PO DAILY, TAB Fluticasone Propionate (Fluticasone Propionate) 16 Gm [place].susp 2 SPRAYS NS DAILY PRN for ALLERGIES, EA Multivitamin (Multivitamin) 1 Each Tablet 1 EACH PO DAILY, TAB Paroxetine HCl (Paroxetine HCl) 40 Mg Tablet 40 MG PO DAILY, TAB Polyethylene Glycol 3350 (Miralax) 17 Gram Powd.pack 17 GM PO BID PRN for CONSTIPATION-2ND LINE, EACH Potassium Chloride (Potassium Chloride) 20 Meq Tab.er.prt 20 MEQ PO DAILY, TAB Trazodone HCl (Trazodone HCl) 100 Mg Tablet 100 MG PO HS, TAB Zafirlukast (Zafirlukast) 20 Mg Tablet 20 MG PO DAILY Discontinued Medications: Bumetanide (Bumetanide) 1 Mg Tablet 1 MG PO DAILY, TAB Diltiazem HCl (Diltiazem 24Hr ER) 240 Mg Cap.er.24h 240 MG PO DAILY, CAP Flecainide Acetate (Flecainide Acetate) 50 Mg Tablet 100 MG PO DAILY, TAB TAKES 2 (50MG) TABS Flecainide Acetate (Flecainide Acetate) 50 Mg Tablet 50 MG PO HS, TAB Patient Instructions Goal/Follow Up Appt: 1-2 weeks with PCP Activity & Diet Discharge Diet: Cardiac Diet NOAH BARAJAS MD Jun 29, 2022 12:40
[2022-06-29 16:38] VITALS: BP 114/65
== END 2022-06-29 16:38 | disposition home or self-care (01) | DRG 189 ==
LOC: EDUNIT# 18:21 → ER 18:23 → CSD 22:48 → ICU 06-22 10:41 → 4TH 06-23 18:09
PROVIDERS: ADMIT Internal Medicine; ATTEND Family Medicine
PROC: 5A09357 Assistance with Respiratory Ventilation, Less than 24 Consecutive Hours, Continuous Positive Airway Pressure (ICD-10-PCS; principal; 2022-06-20)
PROC: 5A0935A Assistance with Respiratory Ventilation, Less than 24 Consecutive Hours, High Flow/Velocity Cannula (ICD-10-PCS; 2022-06-22)
DX: J96.01 Acute respiratory failure with hypoxia (principal); I50.33 Acute on chronic diastolic (congestive) heart failure; G92.8 Other toxic encephalopathy; I13.0 Hypertensive heart and chronic kidney disease with heart failure and stage 1 through stage 4 chronic kidney disease, or unspecified chronic kidney disease; J44.1 Chronic obstructive pulmonary disease with (acute) exacerbation; I44.2 Atrioventricular block, complete; I42.9 Cardiomyopathy, unspecified; N18.31 Chronic kidney disease, stage 3a; I48.0 Paroxysmal atrial fibrillation; T38.0X5A Adverse effect of glucocorticoids and synthetic analogues, initial encounter; G47.33 Obstructive sleep apnea (adult) (pediatric); M06.9 Rheumatoid arthritis, unspecified; M19.91 Primary osteoarthritis, unspecified site; E78.2 Mixed hyperlipidemia; R73.9 Hyperglycemia, unspecified; F41.9 Anxiety disorder, unspecified; F31.9 Bipolar disorder, unspecified; I27.20 Pulmonary hypertension, unspecified; I08.3 Combined rheumatic disorders of mitral, aortic and tricuspid valves; I25.10 Atherosclerotic heart disease of native coronary artery without angina pectoris; E66.9 Obesity, unspecified; Z68.35 Body mass index [BMI] 35.0-35.9, adult; K21.9 Gastro-esophageal reflux disease without esophagitis; E03.9 Hypothyroidism, unspecified; G47.00 Insomnia, unspecified; K59.00 Constipation, unspecified; E87.6 Hypokalemia; Z86.16 Personal history of COVID-19; Z99.81 Dependence on supplemental oxygen; I25.2 Old myocardial infarction; Z95.0 Presence of cardiac pacemaker; H54.7 Unspecified visual loss; Z79.82 Long term (current) use of aspirin; Z79.52 Long term (current) use of systemic steroids; Z88.5 Allergy status to narcotic agent; Z88.2 Allergy status to sulfonamides
CPT/HCPCS: 36410; 36415; 36600; 70450; 71045; 71046; 71275; 76937; 80053; 80061; 81000; 82805; 82947; 83605; 83735; 83874; 83880; 84100; 84145; 84484; 85007; 85025; 85027; 85379; 85610; 85730; 86141; 87040; 87077; 87088; 87804; 93005; 93041; 93306; 94640; 94660; 94664; 94760; 96374; 96375

== ENCOUNTER 2022-08-26 16:26 | Emergency (ER) | payer MEDICARE, MEDICAID ==
[~2022-08-26] VITALS: Ht 152 cm; Wt 83.0 kg
[~2022-08-26 16:26] MED LIST changes: +ASPI-1238 PO; +ATOR20TA66 PO; +BUME1TAB8 PO; +BUME2TAB7 PO; +DILT240C91 PO; +DILT240T10 PO; +DILT300C52 PO; +FLEC100T PO; +FLEC50TA PO; +LORA10TA7 PO; +MULT-1136 PO; +POTA-179 PO; -POTA10CA43 PO; +POTA10CA44 PO; +PRD10T PO; +ZFR20T PO
[2022-08-26] MEDS ORDERED: fentaNYL INJ 100 MCG/2 ML AMP IM ONE (17:30)
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
[2022-08-26] MEDS ORDERED: OXYC1TAB12 PO (17:36)
[2022-08-26 17:43] VITALS: BP 150/84
== END 2022-08-26 17:40 | disposition home or self-care (01) ==
LOC: EDUNIT# 16:26 → ER 16:28
DX: T23.042A Burn of unspecified degree of multiple left fingers (nail), including thumb, initial encounter (principal); Z86.16 Personal history of COVID-19; Z88.5 Allergy status to narcotic agent; Z28.311 Partially vaccinated for COVID-19; X15.3XXA Contact with hot saucepan or skillet, initial encounter
CPT/HCPCS: 99284

== ENCOUNTER → 2022-11-09 | Emergency (ER) | payer MEDICARE, MEDICAID ==
[~2022-11-09] VITALS: Ht 152 cm; Wt 80.0 kg
[~2022-11-09] MED LIST changes: -KETO5DRO15 OU; +OXYC1TAB12 PO; +[UNRECOGNIZED DRUG - CODE] OU
[2022-11-09 19:57] VITALS: BP 121/73
== END | disposition left against medical advice (07) ==
LOC: EDUNIT# 19:24 → ER 19:27
DX: Z53.21 Procedure and treatment not carried out due to patient leaving prior to being seen by health care provider (principal)

== ENCOUNTER 2023-03-16 13:05 | Day surgery (SDC) | payer MEDICARE, MEDICAID ==
[~2023-03-16] VITALS: Ht 152.4 cm; Wt 89.5 kg
[~2023-03-16 13:05] MED LIST changes: -CELE-63 PO; +CELE-91 PO; -FLUT16SP22 NS; +FLUT16SP22 NSEACH; -POTA10CA44 PO; +POTA10CA84 PO; +ZAFI20TA18 PO; -ZFR20T PO
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
--- NOTE | 2023-03-16 14:10 | Diagnostic Imaging Report ---
EXAMINATION: Chest, one view. HISTORY: Chest pain. Shortness of breath. Fever. COMPARISON: 06/25/2022. FINDINGS: The lung volumes are normal. No focal consolidation is seen. No large pleural effusion or pneumothorax is seen. The cardiomediastinal silhouette is stable in size with right pectoral pacemaker in place. There is calcified aortic atherosclerotic plaque. No acute osseous abnormality is seen. Reverse right total shoulder arthroplasty changes are seen. IMPRESSION: 1. No acute pleural-parenchymal process. Dictated by: Dictated on workstation # [id number]
[2023-03-16 14:11] LABS: BASOPHILS % (AUTO) 0 % (0-10); EOSINOPHILS # (AUTO) 0.1 10^3/uL (0.0-0.3); EOSINOPHILS % (AUTO) 1 % (0-10); HEMATOCRIT 43 % (35-52); HEMOGLOBIN 15.1 g/dL (11.5-16.0); LYMPHOCYTES % (AUTO) 26 % (12-44); MEAN CORPUSCULAR HEMOGLOBIN 31 pg (25-34); MEAN CORPUSCULAR HGB CONC 35 g/dL (32-36); MEAN CORPUSCULAR VOLUME 89 fL (80-99); MEAN PLATELET VOLUME 10.1 fL (9.0-12.2); MONOCYTES # (AUTO) 0.8 10^3/uL (0.0-1.0); MONOCYTES % (AUTO) 10 % (0-12); NEUTROPHILS # (AUTO) 4.9 10^3/uL (1.8-7.8); NEUTROPHILS % (AUTO) 63 % (42-75); PLATELET COUNT 237 10^3/uL (130-400); WHITE BLOOD COUNT 7.8 10^3/uL (4.3-11.0)
[2023-03-16 14:26] LABS: PROTHROMBIN TIME PATIENT 13.5 SEC (12.2-14.7)
[2023-03-16 14:35] LABS: ALANINE AMINOTRANSFERASE 18 U/L (0-55); ALBUMIN 3.8 GM/DL (3.2-4.5); ALKALINE PHOSPHATASE 123 U/L (40-136); BILIRUBIN,TOTAL 1.1 MG/DL (0.1-1.0); BUN/CREATININE RATIO 14; CALCIUM 9.3 MG/DL (8.5-10.1); CARBON DIOXIDE 23 MMOL/L (21-32); CHLORIDE 107 MMOL/L (98-107); CREATININE SERUM 0.96 MG/DL (0.60-1.30); GFR ESTIMATED 63; GLUCOSE 139 MG/DL (70-105); MAGNESIUM 1.9 MG/DL (1.6-2.4); POTASSIUM 3.2 MMOL/L (3.6-5.0); SODIUM 142 MMOL/L (135-145); TOTAL PROTEIN 6.6 GM/DL (6.4-8.2)
[2023-03-16] MEDS ORDERED: POTASSIUM CHLORIDE 20 MEQ TABLET PO ONE (15:00)
[2023-03-16 15:54] LABS: AMORPHOUS SEDIMENT,UR FEW AMOR PHOSPHATE /LPF; BACTERIA,URINE TRACE /HPF; BILIRUBIN,URINE 1+ (NEGATIVE); CLARITY,URINE CLOUDY; COLOR,URINE ORANGE; GLUCOSE, URINE (UA) NEGATIVE (NEGATIVE); HYALINE CASTS, URINE 0-2 /LPF; KETONES,URINE TRACE (NEGATIVE); LEUKOCYTE ESTERASE ,URINE TRACE (NEGATIVE); NITRITE,URINE NEGATIVE (NEGATIVE); PROTEIN,URINE 2+ (NEGATIVE); RBC,URINE 0-2 /HPF
[2023-03-16 15:55] LABS: URINE OTHER TRANS EPI 5-10 /HPF
--- NOTE | 2023-03-16 16:38 | Consultation-Cardiology ---
HPI-Cardiology Cardiology Consultation: Date of Consultation 03/16/23 Date of Admission Attending Physician Devon Norwood DO Admitting Physician Admitting Physician: Attending Physician: Consulting Physician Sumi CHUN MD HPI: Time Seen by a Provider: 15:30 Chief Complaint: Shortness of breath, chest pain This is a 72-year-old lady who has history of diabetes, CAD, COPD, history of congestive heart failure and chronic kidney disease. She presents to the ER with complaints of shortness of breath and fatigue. She is also having chest discomfort since Wednesday. History of fever. Denies active smoking but does tell me that she has history of COPD. 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 Longstanding persistent/permanent atrial fibrillation. Watchman device. 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 Review of Systems-Cardiology Review of Systems Constitutional: fever, tiredness Eyes: no symptoms reported Ears/Nose/Throat: no symptoms reported Respiratory: shortness of breath Cardiovascular: chest pain Genitourinary: no symptoms reported Musculoskeletal: no symptoms reported Skin: no symptoms reported Psychiatric/Neurological: no symptoms reported Hematologic: no symptoms reported QEI-Lqybah-Jhsqmb Hx Patient Social History 2nd Hand Smoke Exposure: No Alcohol Use?: No Pt feels they are or have been: No Immunizations Up To Date Date of Pneumonia Vaccine: Sep 06, 2019 Date of Influenza Vaccine: May 06, 2019 Past Medical History PMH As described under Assessment. Family Medical History Family Medical History: Her father suffered a fatal myocardial infarction at the age of 58. Allergies and Home Medications Allergies Coded Allergies: Sulfa (Sulfonamide Antibiotics) (Verified Allergy, Unknown, 04/26/19) morphine (Verified Allergy, Unknown, 04/26/19) Patient Home Medication List Home Medication List Reviewed: Yes Aspirin (Aspirin EC) 81 Mg Tablet.dr, 81 MG PO DAILY, (Reported) Entered as Reported by: REINA ARNOLD on 06/20/22 1010 Atorvastatin Calcium (Atorvastatin Calcium) 20 Mg Tablet, 20 MG PO DAILY, (Reported) Entered as Reported by: REINA ARNOLD on 06/20/22 1003 Bumetanide (Bumetanide) 2 Mg Tablet, 2 MG PO BID Prescribed by: NOAH BARAJAS on 06/29/22 1239 Calcium Carbonate (Calcium) 600 Mg Tablet, 600 MG PO DAILY, (Reported) Entered as Reported by: DEVON HILL on 09/21/19 1546 Diltiazem HCl (Diltiazem 24Hr ER) 300 Mg Cap.er.24h, 300 MG PO DAILY@0900 Prescribed by: NOAH BARAJAS on 06/29/22 1239 Flecainide Acetate (Flecainide Acetate) 100 Mg Tablet, 150 MG PO BID Prescribed by: NOAH BARAJAS on 06/29/22 1239 Fluticasone Propionate (Fluticasone Propionate) 16 Gm [place].susp, 2 SPRAYS NS DAILY PRN for ALLERGIES, (Reported) Entered as Reported by: MERCED PETERS on 08/15/19 0840 Loratadine (Loratadine) 10 Mg Tablet, 10 MG PO DAILY Prescribed by: NOAH BARAJAS on 06/29/22 1239 Multivitamin (Multivitamin) 1 Each Tablet, 1 EACH PO DAILY, (Reported) Entered as Reported by: DEVON HILL on 06/22/22 1035 Oxycodone HCl/Acetaminophen (Percocet 10-325 mg Tablet) 1 Each Tablet, 1 TAB PO Q6H PRN for PAIN-MODERATE Prescribed by: Ivette Orellana on 08/26/22 1737 Paroxetine HCl (Paroxetine HCl) 40 Mg Tablet, 40 MG PO DAILY, (Reported) Entered as Reported by: DEVON HILL on 01/16/20 1007 Polyethylene Glycol 3350 (Miralax) 17 Gram Powd.pack, 17 GM PO BID PRN for CONSTIPATION-2ND LINE, (Reported) Entered as Reported by: MERCED PETERS on 04/27/19 0857 Potassium Chloride (Potassium Chloride) 20 Meq Tab.er.prt, 20 MEQ PO DAILY, (Reported) Entered as Reported by: DEVON HILL on 06/22/22 1035 Prednisone (Prednisone) 10 Mg Tab, 10 MG PO DAILY@0700 Prescribed by: NOAH BARAJAS on 06/29/22 1239 Trazodone HCl (Trazodone HCl) 100 Mg Tablet, 100 MG PO HS, (Reported) Entered as Reported by: DEVON HILL on 06/22/22 1035 Zafirlukast (Zafirlukast) 20 Mg Tablet, 20 MG PO DAILY, (Reported) Entered as Reported by: REINA ARNOLD on 06/20/22 1006 Exam Vital Signs Vital Signs Date Time Temp Pulse Resp B/P (MAP) Pulse Ox O2 Delivery O2 Flow Rate FiO2 03/16/23 13:10 36.1 66 16 135/63 (87) 94 Physical Exam Constitutional: Mild respiratory distress. Chest: Coarse breath sounds. CVS: Irregular rhythm. No significant murmur. Neuro: Nonfocal. Labs Laboratory Tests Test 03/16/23 13:25 03/16/23 14:03 03/16/23 15:35 03/16/23 16:17 Range/Units Influenza Type A (RT-PCR) Not Detected Not Detecte Influenza Type B (RT-PCR) Not Detected Not Detecte SARS-CoV-2 RNA (RT-PCR) Not Detected Not Detecte White Blood Count 7.8 4.3-11.0 10^3/uL Red Blood Count 4.89 3.80-5.11 10^6/uL Hemoglobin 15.1 11.5-16.0 g/dL Hematocrit 43 35-52 % Mean Corpuscular Volume 89 80-99 fL Mean Corpuscular Hemoglobin 31 25-34 pg Mean Corpuscular Hemoglobin Concent 35 32-36 g/dL Red Cell Distribution Width 12.0 10.0-14.5 % Platelet Count 237 130-400 10^3/uL Mean Platelet Volume 10.1 9.0-12.2 fL Immature Granulocyte % (Auto) 0 % Neutrophils (%) (Auto) 63 42-75 % Lymphocytes (%) (Auto) 26 12-44 % Monocytes (%) (Auto) 10 0-12 % Eosinophils (%) (Auto) 1 0-10 % Basophils (%) (Auto) 0 0-10 % Neutrophils # (Auto) 4.9 1.8-7.8 10^3/uL Lymphocytes # (Auto) 2.0 1.0-4.0 10^3/uL Monocytes # (Auto) 0.8 0.0-1.0 10^3/uL Eosinophils # (Auto) 0.1 0.0-0.3 10^3/uL Basophils # (Auto) 0.0 0.0-0.1 10^3/uL Immature Granulocyte # (Auto) 0.0 0.0-0.1 10^3/uL Prothrombin Time 13.5 12.2-14.7 SEC INR Comment 1.0 0.8-1.4 Activated Partial Thromboplast Time 41 H 24-35 SEC D-Dimer 0.54 H 0.00-0.49 UG/ML Sodium Level 142 135-145 MMOL/L Potassium Level 3.2 L 3.6-5.0 MMOL/L Chloride Level 107 98-107 MMOL/L Carbon Dioxide Level 23 21-32 MMOL/L Anion Gap 12 5-14 MMOL/L Blood Urea Nitrogen 13 7-18 MG/DL Creatinine 0.96 0.60-1.30 MG/DL Estimat Glomerular Filtration Rate 63 BUN/Creatinine Ratio 14 Glucose Level 139 H 70-105 MG/DL Calcium Level 9.3 8.5-10.1 MG/DL Corrected Calcium 9.5 8.5-10.1 MG/DL Magnesium Level 1.9 1.6-2.4 MG/DL Total Bilirubin 1.1 H 0.1-1.0 MG/DL Aspartate Amino Transf (AST/SGOT) 25 5-34 U/L Alanine Aminotransferase (ALT/SGPT) 18 0-55 U/L Alkaline Phosphatase 123 40-136 U/L Troponin I < 0.028 <0.028 NG/ML B-Type Natriuretic Peptide 239.1 H <100.0 PG/ML Total Protein 6.6 6.4-8.2 GM/DL Albumin 3.8 3.2-4.5 GM/DL Urine Color ORANGE Urine Clarity CLOUDY Urine pH 7.0 5-9 Urine Specific [place] 1.020 1.016-1.022 Urine Protein 2+ H NEGATIVE Urine Glucose (UA) NEGATIVE NEGATIVE Urine Ketones TRACE H NEGATIVE Urine Nitrite NEGATIVE NEGATIVE Urine Bilirubin 1+ H NEGATIVE Urine Urobilinogen 1.0 < = 1.0 MG/DL Urine Leukocyte Esterase TRACE H NEGATIVE Urine RBC (Auto) TRACE H NEGATIVE Urine RBC 0-2 /HPF Urine WBC 5-10 H /HPF Urine Squamous Epithelial Cells 2-5 /HPF Urine Crystals PRESENT H /LPF Urine Amorphous Sediment FEW SAMUEL PHOSPHATE H /LPF Urine Bacteria TRACE /HPF Urine Casts PRESENT /LPF Urine Hyaline Casts 0-2 H /LPF Urine Mucus SMALL H /LPF Urine Other TRANS EPI 5-10 /HPF Urine Culture Indicated YES ECG Impression ECG Initial ECG Rhythm: A Fib/Flutter Comment Atrial fibrillation with occasional ventricular paced rhythm. A/P-Cardiology Assessment/Admission Diagnosis Acute respiratory failure, Longstanding persistent atrial fibrillation, Pacemaker, Watchman device, Likely acute on chronic congestive heart failure. COPD, Chest pain Plan Acute respiratory failure, recent fever, COVID-negative. COPD. Mildly positive D-dimer. ?PE Longstanding persistent atrial fibrillation, pacemaker, Watchman device. Acute on chronic congestive heart failure. Mild elevation of BNP. Request echocardiogram. Chest pain. Some reproducibility. Mild T wave inversions noted. First troponin is negative. Repeat troponin in 3 hours from admission. Will likely require an observation. Patient tells me that her digital media producer and car pusher are at [facility] and she may consider getting transferred to [facility] for further care. I would let her talk to the ER and make a decision. Sumi CHUN MD Mar 16, 2023 16:38
[2023-03-16] MEDS ORDERED: cefTRIAXone IV/IM 1,000 MG in NS (IVPB) 50 ML 50 ML IV ONE (17:15)
[2023-03-16] MEDS ORDERED: IOHEXOL 350 MG/ML 100 ML (OMNIPAQUE 350) VIAL IV ONE (17:30)
[2023-03-16] MEDS ORDERED: NS 100 ML (IVPB) BAG IV ONE (17:30)
[2023-03-16] MEDS ORDERED: HOLD METFORMIN - RECEIVED CONTRAST 20 ML VIAL IV SCH (17:30)
--- NOTE | 2023-03-16 17:34 | Diagnostic Imaging Report ---
PROCEDURE: CT angiography of the chest with contrast. TECHNIQUE: Multiple contiguous axial images were obtained through the chest after uneventful bolus administration of intravenous contrast. 3D reconstructed CTA MIP acquisitions were also performed. Auto Exposure Controls were utilized during the CT exam to meet ALARA standards for radiation dose reduction. INDICATION: Chest pain and shortness of breath as well as fever. FINDINGS: Evaluation of the pulmonary arterial system is without evidence of thromboembolism. No filling defects are seen within central, lobar or segmental branches. Aorta appears nonaneurysmal. No dissection is seen. There is no pericardial or pleural fluid identified. There appears to be an occlusion device within the left atrial appendage. Lungs are clear of acute infiltrates. No infiltrates, nodule or mass is identified. Upper abdomen is unremarkable. IMPRESSION: No evidence of pulmonary embolism or acute aortic disease. Dictated by: Dictated on workstation # [id number]
[2023-03-16 19:45] VITALS: BP 124/96
[2023-03-16 19:48] VITALS: BP 142/78
[2023-03-16 20:00] VITALS: BP 162/137
[2023-03-16] MEDS ORDERED: HYDROmorphone INJECTION 2 MG/ML VIAL IV PRN (20:15)
[2023-03-16] MEDS ORDERED: ONDANSETRON INJECTION 4 MG/2 ML (SDV) IV PRN (20:15)
[2023-03-16] MEDS ORDERED: oxyCODONE IMMEDIATE RELEASE 5 MG TABLET PO PRN (20:15)
[2023-03-16] MEDS ORDERED: ACETAMINOPHEN 325 MG TABLET PO PRN (20:15)
[2023-03-16] MEDS ORDERED: CALCIUM CARBONATE 500 MG CHEW TABLET PO PRN (20:15)
[2023-03-16] MEDS ORDERED: BISACODYL 10 MG SUPPOSITORY PR PRN (20:15)
[2023-03-16] MEDS ORDERED: diphenhydrAMINE 25 MG TABLET PO PRN (20:15)
[2023-03-16] MEDS ORDERED: LACTULOSE SYRUP 10GM/15ML 30ML UDC PO PRN (20:15)
[2023-03-16] MEDS ORDERED: ANTACID SUSPENSION 30 ML UDC PO PRN (20:15)
[2023-03-16] MEDS ORDERED: MILK OF MAGNESIA 400 MG/5 ML 30 ML UDC PO PRN (20:15)
[2023-03-16] MEDS ORDERED: diphenhydrAMINE INJ 50 MG/ML VIAL IVP PRN (20:15)
[2023-03-16] MEDS ORDERED: ONDANSETRON 4 MG ORAL DISSOLVE TABLET PO PRN (20:15)
[2023-03-16 20:28] VITALS: BP 135/63
[2023-03-16] MEDS ORDERED: RT-Ipratropium/Albuterol NEB 3 ML VIAL INH PRN (20:45)
[2023-03-16 21:00] VITALS: BP 138/97
[2023-03-16] MEDS: DOCUSATE SODIUM 100 MG CAPSULE PO SCH (21:59)
[2023-03-16 22:00] VITALS: BP 131/58
[2023-03-16] MEDS: SENNOSIDES 8.6 MG TABLET PO SCH (22:00)
[2023-03-16] MEDS ORDERED: ALPRAZolam 0.5 MG TABLET ONE (22:09)
[2023-03-16] MEDS ORDERED: MELATONIN 3 MG TABLET ONE (22:10)
[2023-03-16] MEDS: MELATONIN 3 MG TABLET PO PRN (22:12)
[2023-03-16] MEDS: ALPRAZolam 0.5 MG TABLET PO PRN (22:12)
[2023-03-16] MEDS: RT-Ipratropium/Albuterol NEB 3 ML VIAL INH SCH (22:27)
[2023-03-16] MEDS: ENOXAPARIN 100 MG/1 ML SYRINGE SC SCH (22:46)
[2023-03-17] VITALS: BP 90/54
[2023-03-17] MEDS: RT-Ipratropium/Albuterol NEB 3 ML VIAL INH SCH ×4 (03:12→23:38)
[2023-03-17 04:00] VITALS: BP 88/54
[2023-03-17] MEDS ORDERED: PATIENT MAY USE OWN MEDS, ALL PO SCH (05:30)
[2023-03-17 05:45] LABS: BASOPHILS % (AUTO) 0 % (0-10); EOSINOPHILS # (AUTO) 0.1 10^3/uL (0.0-0.3); EOSINOPHILS % (AUTO) 1 % (0-10); HEMATOCRIT 43 % (35-52); HEMOGLOBIN 14.7 g/dL (11.5-16.0); LYMPHOCYTES % (AUTO) 22 % (12-44); MEAN CORPUSCULAR HEMOGLOBIN 31 pg (25-34); MEAN CORPUSCULAR HGB CONC 34 g/dL (32-36); MEAN CORPUSCULAR VOLUME 91 fL (80-99); MEAN PLATELET VOLUME 10.4 fL (9.0-12.2); MONOCYTES # (AUTO) 0.8 10^3/uL (0.0-1.0); MONOCYTES % (AUTO) 9 % (0-12); NEUTROPHILS # (AUTO) 6.1 10^3/uL (1.8-7.8); NEUTROPHILS % (AUTO) 67 % (42-75); PLATELET COUNT 217 10^3/uL (130-400); WHITE BLOOD COUNT 9.2 10^3/uL (4.3-11.0)
[2023-03-17 06:21] LABS: ALBUMIN 3.6 GM/DL (3.2-4.5); BILIRUBIN,TOTAL 0.9 MG/DL (0.1-1.0); CALCIUM 9.3 MG/DL (8.5-10.1); CREATININE SERUM 0.95 MG/DL (0.60-1.30); POTASSIUM 3.5 MMOL/L (3.6-5.0); TOTAL PROTEIN 6.3 GM/DL (6.4-8.2)
[2023-03-17 08:00] VITALS: BP 93/60
[2023-03-17] MEDS: ASPIRIN enteric coated 81MG TABLET PO SCH (09:16)
[2023-03-17] MEDS: DOCUSATE SODIUM 100 MG CAPSULE PO SCH ×2 (09:17→21:20)
[2023-03-17] MEDS: ENOXAPARIN 100 MG/1 ML SYRINGE SC SCH ×2 (09:17→21:21)
[2023-03-17] MEDS: SENNOSIDES 8.6 MG TABLET PO SCH ×2 (09:17→21:20)
[2023-03-17] MEDS: CLOPIDOGREL 75 MG TABLET PO SCH (09:17)
--- NOTE | 2023-03-17 11:41 | Physical Therapy Evaluation ---
PT Evaluation-General Medical Diagnosis Admission Date Mar 16, 2023 at 18:16 Medical Diagnosis: acute EKG change Onset Date: Mar 13, 2023 Therapy Diagnosis Therapy Diagnosis: impaired mobility Precautions Precautions/Isolations: Fall Prevention, Standard Precautions Referral Physician: Rosaura Patel DO Reason for Referral: Evaluation/Treatment Medical History Pertinent Medical History: Atrial Fib, Arthritis, CAD, COPD, DM, GERD, Heart Failure, HTN, Hypothroidism, IA Additional Medical History CHF, chronic kidney disease, pacemaker, (B) total knee replacement, (R) total shoulder replacement Current History Pt admitted to ED with dyspnea and fatigue. Reviewed History: Yes Social History Home: Apartment Current Living Status: Alone Entry Into Home: Elevator Prior Prior Level of Function SCALE: Activities may be completed with or without assistive devices. 4-Vinphefjvw-gcumxwb completes the activity by him/herself with no assistance from a helper. 5-Set-up or Clean-up Assistance-helper sets up or cleans up; patient completes activity. Bunkie assists only prior to or following the activity. 4-Supervision or Touching Assistance-helper provides verbal cues and/or touching/steadying and/or contact guard assistance as patient completes activity. Assistance may be provided throughout the activity or intermittently. 3-Partial/Moderate Assistance-helper does LESS THAN HALF the effort. Bunkie lifts, holds or supports trunk or limbs, but provides less than half the effort. 2-Substantial/Maximal Assistance-helper does MORE THAN HALF the effort. Bunkie lifts or holds trunk or limbs and provides more than half the effort. 0-Pypmlolho-fwozyi does ALL the effort. Patient does none of the effort to complete the activity. Or, the assistance of 2 or more helpers is required for the patient to complete the activity. If activity was not attempted, code reason: 7-Patient Refused. 9-Not Applicable-not attempted and the patient did not perform the activity before the current illness, exacerbation or injury. 10-Not Attempted due to Environmental Limitations-(lack of equipment, weather restraints, etc.). 88-Not Attempted due to Medical Conditions or Safety Concerns. Bed Mobility: 6 Transfers (B,C,W/C): 6 Gait: 6 Stairs: 9 Indoor Mobility (Ambulation): Independent Stairs: Not Applicalbe Prior Devices Use: None Prior Device Use: Pt has used a walker in the past, but has not used one in 6-7 months. PT Evaluation-Current Subjective Chest tightness, but no pain reported on arrival. Pt/Family Goals Return home Objective Patient Orientation: Person, Place, Time, Situation ROM/Strength ROM Upper Extremities WFL ROM Lower Extremities WFL Strength Upper Extremities WFL Strength Lower Extremities WFL Integumentary/Posture Bowel Incontinence: No Bladder Incontinence: No Neuromuscular (Tone, Coordination, Reflexes) intact Sensory Vision: Functional Hearing: Functional Hand Dominance: Right Sensation Right Upper Extremit: Intact Sensation Left Upper Extremity: Intact Sensation Right Lower Extremit: Intact Sensation Left Lower Extremity: Intact Transfers Roll Left to Right (QC): 4 Sit to Lying (QC): 4 Lying to Sitting/Side of Bed(Q: 4 Sit to Stand (QC): 4 Gait Does the Patient Walk?: Yes Mode of Locomotion: Walk Anticipated Mode of Locomotion: Walk Walk 10 feet (QC): 4 Walk 50 ft with 2 Turns(QC): 4 Walk 150 ft (QC): 88 Distance: 106ft Gait Assistive Device: FWW Comments/Gait Description Stopped gait due to shortness of breath. Pt returned to bed and oxygen saturati on at 97%. Wheelchair Training Does the Pt Use a Wheelchair?: No Balance Sitting Static: Normal Sitting Dynamic: Normal Standing Static: Good Standing Dynamic: Good Assessment/Needs Pt was limited by shortness of breath. Good stability during gait and transfers, but definitely needed supervision during transfer and gait. Rehab Potential: Good PT Athletic Shoe Designer Goals Skilled Nursing Goals PT Athletic Shoe Designer Goals Time Frame: Mar 24, 2023 Roll Left & Right (QC): 6 Sit to Lying (QC): 6 Lying-Sitting on Side/Bed(QC): 6 Sit to Stand (QC): 6 Chair/Syj-yl-Knaqn Xfer(QC): 6 Toilet Transfer (QC): 6 Car Transfer (QC): 6 Does the Patient Walk: Yes Walk 10 feet (QC): 6 Walk 50ft with 2 Turns (QC): 6 Walk 150 ft (QC): 6 PT Plan Problem List Problem List: Activity Tolerance, Functional Strength, Safety, Balance, Gait, Transfer, Bed Mobility Treatment/Plan Treatment Plan: Continue Plan of Care Treatment Plan: Bed Mobility, Education, Functional Activity Luz, Functional Strength, Gait, Safety, Therapeutic Exercise, Transfers Treatment Duration: Mar 24, 2023 Frequency: 5 times per week Estimated Hrs Per Day: .25 hour per day Patient and/or Family Agrees t: Yes Time Time In: 1040 Time Out: 1105 DATE: Mar 17, 2023 Total Billed Treatment Time: 25 Total Billed Treatment 1, luciana 25 DELFIN PANTOJA PT Mar 17, 2023 11:41
[2023-03-17 11:55] VITALS: BP 115/80
[2023-03-17] MEDS: BENZONATATE 100 MG CAPSULE PO SCH ×2 (12:27→19:59)
[2023-03-17] MEDS ORDERED: METO50TA7 PO (13:02)
[2023-03-17] MEDS ORDERED: BUDE10.22 INH (13:02)
[2023-03-17] MEDS ORDERED: FLUT1DIS26 INH (13:02)
[2023-03-17] MEDS ORDERED: CLOP75TA28 PO (13:02)
[2023-03-17] MEDS ORDERED: FLEC50TA PO ×2 (13:02)
[2023-03-17] MEDS ORDERED: ATOR40TA70 PO (13:02)
[2023-03-17] MEDS ORDERED: DILT300C52 PO (13:02)
[2023-03-17] MEDS ORDERED: HYDR50CA3 PO (13:02)
[2023-03-17] MEDS ORDERED: NITR0.4T42 SL (13:02)
[2023-03-17] MEDS ORDERED: SPIR25TA5 PO (13:02)
[2023-03-17] MEDS ORDERED: BUME2TAB7 PO (13:02)
[2023-03-17] MEDS ORDERED: TOPI25TA10 PO (13:02)
--- NOTE | 2023-03-17 15:11 | History & Physical-Hospitalist ---
SCOT ROWLEY 03/17/23 1511: History of Present Illness HPI/Chief Complaint 72-year-old female arrived to the ED via EMS on 03/16 with chief complaint of fatigue, SOB, and left-sided chest pain. Patient reports that her symptoms started night, worsened throughout the weekend. She had been getting increasingly SOB on exertion and began having reproducible chest pain with exertion, reports that it would occasionally radiate to the middle of her back. Laying down for a few minutes helped these symptoms, and during one episode of chest pain she took a nitro tab which helped relieve some of her symptoms. She states that she had a fever of 103 F on Wednesday, but that this went away after a day or two. CXR showed no acute processes. Initial and 3 hour troponin were both negative. BNP was elevated at 239. She has a history of longstanding a-fib, watchman and pacemaker in place, sees Dr. Beal in [facility]. EKG showed a-fib with new T-wave inversions in leads 2,3, aVF and V3. D-dimer was measured at 0.54, CTA showed no pulmonary embolism. Cardiology has been consulted, met with patient last night. Patient has maintained good O2 sats since admission. Seen today laying in bed with two friends at the bedside. She reports that her chest pain has improved since admission, has had a couple episodes but not as severe as over the weekend. She reports that she is still SOB today, using nasal cannula while in the room, although she has mostly been on RA. She has had a cough starting last night and into today, mostly dry but occasionally productive of yellow sputum. Patient has no other complaints. Source: patient Date Seen 03/17/23 Attending Physician Marco Norwood DO PCP Admitting Physician: Rosaura Gonzales DO Attending Physician: Rosaura Gonzales DO Referring Physician Date of Admission Mar 16, 2023 at 18:16 Home Medications & Allergies Home Medications Reviewed patient Home Medication Reconciliation performed by pharmacy medication reconciliations care technician and/or nursing. Patients Allergies have been reviewed. Allergies Allergies Coded Allergies Sulfa (Sulfonamide Antibiotics) (Verified Allergy, Unknown, 04/26/19) morphine (Verified Allergy, Unknown, 04/26/19) Past Jbsmnlh-Fpgvkd-Zvbumk Hx Patient Social History Tobacco Use?: No Substance use?: No Alcohol Use?: No Pt feels they are or have been: No Immunizations Up To Date Date of Influenza Vaccine: May 06, 2019 First/Initial COVID19 Vaccinat: january 2022 Second COVID19 Vaccination [place]: february 2022 Tetanus Booster (TDap): Less Than 5 Years Date of Pneumonia Vaccine: Sep 06, 2019 Seasonal Allergies Seasonal Allergies: Yes Current Status Advance Directives: No Advance Directive Location: Home Communicates: Verbally Primary Language: Maltese Preferred Spoken Language: Maltese Is interpretation needed?: No Implanted or Applied Medical D: Orthopedic hardware, Pacemaker Past Medical History Surgeries: Adenoidectomy, Appendectomy, Cardiac, Gallbladder, Hysterectomy, Oophorectomy, Pacemaker, Rectal, Tonsillectomy Asthma, COPD Atrial Fibrillation, Cardiomyopathy, Coronary Artery Disease, Heart Attack, High Cholesterol, Hypertension, Irregular Heartbeat, Syncope Stroke 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: Hysterectomy, Menopausal Gastroesophageal Reflux Arthritis Hypothyroidsim Anxiety, Bipolar, Depression Blood Disorders: No Family Medical History No Pertinent Family Hx Review of Systems Constitutional: No chills; fever (Reports fever of 103 on Wednesday, resolved) EENTM: No hearing loss, No blurred vision Respiratory: cough (started last night, mostly dry, sometimes yellow sputum), dyspnea on exertion, short of breath Cardiovascular: chest pain (improved); No edema, No syncope Gastrointestinal: No abdominal pain, No nausea, No vomiting Genitourinary: No dysuria, No hematuria Musculoskeletal: No back pain, No neck pain Skin: No change in color, No change in hair/nails Psychiatric/Neurological: Denies Numbness, Denies Weakness Physical Exam Physical Exam Vital Signs Vital Signs - First Documented 03/16/23 03/16/23 03/16/23 03/16/23 13:10 18:20 20:28 22:28 Temp 36.1 Pulse 66 Resp 16 B/P (MAP) 135/63 (87) Pulse Ox 94 O2 Delivery Room Air O2 Flow Rate 0.00 FiO2 21 Capillary Refill : Less Than 3 Seconds Height, Weight, BMI Height: '" Weight: lbs. oz. kg; 37.02 BMI Method: General Appearance: No Apparent Distress, WD/WN HEENT: PERRL/EOMI Neck: Non Tender, Supple Respiratory: Chest Non Tender, Lungs Clear, Normal Breath Sounds Cardiovascular: No Edema, Normal Peripheral Pulses, Other (afib, rate controlled) Gastrointestinal: Non Tender, Soft Rectal: Deferred Back: No Vertebral Tenderness Extremity: Normal Capillary Refill, Non Tender, No Pedal Edema Neurologic/Psychiatric: Alert, Oriented x3 Skin: Normal Color, Warm/Dry Lymphatic: No Adenopathy Results Results/Procedures Labs Laboratory Tests 03/16/23 14:03 03/17/23 04:50 03/17/23 05:06 Patient resulted labs reviewed. Assessment/Plan Admission Diagnosis Acute on chronic CHF Assessment and Plan Acute on chronic CHF: Cardiology consulted, appreciate recs, echo today Acute on chronic respiratory failure: O2 supplementation as needed, duoneb Q6H and PRN Longstanding persistent a-fib: has watchman, pacemaker, continue plavix, rate controlled, on telemetry Chest pain: cardiology consulted, continue aspirin, pain improved since admit Abnormal ECG: Cardiology consulted, monitoring with telemetry UTI: given 1g Rocephin in ED, no urinary sxs currently COPD: Duoneb, O2 as needed Hypokalemia: Improved from 3.2 to 3.5 this morning, continue to replace Cough: Tessalon pearls as needed Lovenox for DVT prophylaxis Clinical Quality Measures AMI/AHF: ASA po Prior to arrival: Abril COTAKEKE HOOPERHany OWENS 03/17/23 2008: History of Present Illness HPI/Chief Complaint Chief complaint: Shortness of breath HPI: This is a 72-year-old femaleWho presents with shortness of breath found to have acute on chronic congestive heart failure. Cardiology consulted. Patient remains on oxygen. Patient has a history of atrial fibrillation. Source: patient Exam Limitations: no limitations Time Seen by a Provider: 12:00 Past [place]-Lceund Hx Patient Social History Marrital Status: single Employed/Student: retired Smoking Status: Former Smoker Past Medical History COPD Chronic Edema/Swelling, Coronary Artery Disease, High Cholesterol, Hypertension Review of Systems Constitutional: see HPI Respiratory: dyspnea on exertion Physical Exam Physical Exam General Appearance: No Apparent Distress, Chronically ill Respiratory: Lungs Clear, Normal Breath Sounds, Decreased Breath Sounds Cardiovascular: Other (afib, rate controlled) Neurologic/Psychiatric: Alert, Oriented x3 Assessment/Plan Admission Diagnosis Acute on chronic congestive heart failure CAD Hypertension COPD Acute hypoxic respiratory failure Plan: Cardiology O2 Supportive care Echo Admission Status: Observation Reason for Inpatient Admission: chf Supervisory-Addendum Brief Verification & Attestation Participated in pt care: history, MDM, physical Personally performed: exam, history, MDM, supervision of care Care discussed with: Medical Student Procedures: n/a Results interpretation: Verified all documentation Verification and Attestation of Medical Student E/M Service A medical student performed and documented this service in my presence. I reviewed and verified all information documented by the medical student and made modifications to such information, when appropriate. I personally performed the physical exam and medical decision making. Rosaura Gonzales, Mar 17, 2023,20:08 SCOT ROWLEY Mar 17, 2023 15:11 ROSAURA GONZALES DO Mar 17, 2023 20:08
--- NOTE | 2023-03-17 15:20 | Cardiology Progress Note ---
Cardiology SOAP Progress Note Subjective: Occasional chest discomfort Objective: I&O/Vital Signs 03/17/23 03/17/23 03/17/23 03/17/23 04:00 07:00 07:36 08:00 Temp 36.6 Pulse 77 81 Resp 16 B/P (MAP) 88/54 (65) Pulse Ox 94 95 94 O2 Delivery Room Air Room Air Room Air O2 Flow Rate 0.00 FiO2 21 03/17/23 03/17/23 03/17/23 08:00 11:55 12:50 Temp 35.7 Pulse 75 85 Resp 20 B/P (MAP) 93/60 (68) 115/80 (92) Pulse Ox 94 92 O2 Delivery Room Air 03/17/23 00:00 Intake Total 350 ml Output Total 1 ml Balance 349 ml Constitutional: AAO x 3 Respiratory: lungs clear to auscultation Cardiovascular: regular rate-rhythm, S1 and S2 Neurologic/Psychiatric: no motor/sensory deficits, alert, normal mood/affect, oriented x 3 Results/Procedures: Labs Laboratory Tests 03/16/23 15:35: Urine Color ORANGE, Urine Clarity CLOUDY, Urine pH 7.0, Urine Specific [place] 1.020, Urine Protein 2+H, Urine Glucose (UA) NEGATIVE, Urine Ketones TRACEH, Urine Nitrite NEGATIVE, Urine Bilirubin 1+H, Urine Urobilinogen 1.0, Urine Leukocyte Esterase TRACEH, Urine RBC (Auto) TRACEH, Urine RBC 0-2, Urine WBC 5- 10H, Urine Squamous Epithelial Cells 2-5, Urine Crystals PRESENTH, Urine Amorphous Sediment FEW SAMUEL PHOSPHATEH, Urine Bacteria TRACE, Urine Casts PRESENT, Urine Hyaline Casts 0-2H, Urine Mucus SMALLH, Urine Other TRANS EPI 5- 10, Urine Culture Indicated YES 03/16/23 16:17: Troponin I < 0.028 03/17/23 04:50: White Blood Count 9.2, Red Blood Count 4.74, Hemoglobin 14.7, Hematocrit 43, Mean Corpuscular Volume 91, Mean Corpuscular Hemoglobin 31, Mean Corpuscular Hemoglobin Concent 34, Red Cell Distribution Width 12.2, Platelet Count 217, Mean Platelet Volume 10.4, Immature Granulocyte % (Auto) 0, Neutrophils (%) (Auto) 67, Lymphocytes (%) (Auto) 22, Monocytes (%) (Auto) 9, Eosinophils (%) (Auto) 1, Basophils (%) (Auto) 0, Neutrophils # (Auto) 6.1, Lymphocytes # (Auto) 2.0, Monocytes # (Auto) 0.8, Eosinophils # (Auto) 0.1, Basophils # (Auto) 0.0, Immature Granulocyte # (Auto) 0.0 03/17/23 05:06: Troponin I 0.348*H, Sodium Level 140, Potassium Level 3.5L, Chloride Level 108H, Carbon Dioxide Level 21, Anion Gap 11, Blood Urea Nitrogen 15, Creatinine 0.95, Estimat Glomerular Filtration Rate 64, BUN/Creatinine Ratio 16, Glucose Level 142H, Calcium Level 9.3, Corrected Calcium 9.6, Total Bilirubin 0.9, Aspartate Amino Transf (AST/SGOT) 27, Alanine Aminotransferase (ALT/SGPT) 19, Alkaline Phosphatase 121, Total Protein 6.3L, Albumin 3.6, Triglycerides Level 105, Trish sterol Level 135, LDL Cholesterol Direct 67, VLDL Cholesterol 21, HDL Cholesterol 45 A/P: Assessment/Dx: Acute respiratory failure, Longstanding persistent atrial fibrillation, Pacemaker, Watchman device, Likely acute on chronic congestive heart failure. COPD, Non-STEMI Plan: Acute respiratory failure, recent fever, COVID-negative. COPD. Mildly positive D-dimer. Improved shortness of breath.Negative CTA for PE Longstanding persistent atrial fibrillation, pacemaker, Watchman device. Acute on chronic congestive heart failure. Mild elevation of BNP. Request echocardiogram. Chest pain. Some reproducibility. Mild T wave inversions noted. First troponin is negative. Repeat troponin in 3 hours from admission. 24-hour troponin is positive. Working diagnosis of non-STEMI. Dual antiplatelet therapy. Will give a dose of Lovenox. Coronary angiography and possible intervention tomorrow. Informed consent taken from the patient including a 1% risk of complication including a small risk of . This was accepted by the patient and she would like to proceed. Clinical Quality Measures AMI/AHF: ASA po Prior to arrival: Sumi Neal MD Mar 17, 2023 15:20
[2023-03-17 16:00] VITALS: BP 122/66
[2023-03-17 20:00] VITALS: BP 120/87
[2023-03-17] MEDS: MELATONIN 3 MG TABLET PO PRN (20:05)
[2023-03-17] MEDS: ALPRAZolam 0.5 MG TABLET PO PRN (20:05)
[2023-03-17] MEDS ORDERED: FLUTICASONE NASAL SPRAY (120 SPRAYS) NS PRN (20:15)
[2023-03-17] MEDS ORDERED: NITROGLYCERIN 0.4 MG SL TABLETS BTL 25'S SL SCH (20:15)
[2023-03-17] MEDS: BUMETANIDE 1 MG TABLET PO SCH (21:27)
[2023-03-17] MEDS: traZODone 100 MG (DESYREL) TAB PO SCH (21:27)
[2023-03-17] MEDS: FLECAINIDE 100 MG TABLET PO SCH (21:27)
[2023-03-17] MEDS: toPIRamate 25 MG (TOPAMAX) TAB PO SCH (21:27)
[2023-03-17] MEDS ORDERED: hydrOXYzine 25 MG CAPSULE PO PRN (21:30)
[2023-03-18] VITALS (14 sets, daily range): BP systolic 94–125; BP diastolic 52–79
[2023-03-18] MEDS: RT-Ipratropium/Albuterol NEB 3 ML VIAL INH SCH ×4 (02:40→19:06)
[2023-03-18] MEDS: BENZONATATE 100 MG CAPSULE PO SCH ×3 (05:23→20:56)
[2023-03-18 05:48] LABS: BASOPHILS % (AUTO) 1 % (0-10); EOSINOPHILS # (AUTO) 0.2 10^3/uL (0.0-0.3); EOSINOPHILS % (AUTO) 3 % (0-10); HEMATOCRIT 43 % (35-52); HEMOGLOBIN 14.5 g/dL (11.5-16.0); LYMPHOCYTES # (AUTO) 1.8 10^3/uL (1.0-4.0); LYMPHOCYTES % (AUTO) 28 % (12-44); MEAN CORPUSCULAR HEMOGLOBIN 31 pg (25-34); MEAN CORPUSCULAR HGB CONC 34 g/dL (32-36); MEAN CORPUSCULAR VOLUME 92 fL (80-99); MEAN PLATELET VOLUME 10.7 fL (9.0-12.2); MONOCYTES # (AUTO) 0.6 10^3/uL (0.0-1.0); MONOCYTES % (AUTO) 9 % (0-12); NEUTROPHILS # (AUTO) 3.9 10^3/uL (1.8-7.8); NEUTROPHILS % (AUTO) 59 % (42-75); PLATELET COUNT 256 10^3/uL (130-400); WHITE BLOOD COUNT 6.5 10^3/uL (4.3-11.0)
[2023-03-18 06:11] LABS: ALBUMIN 3.7 GM/DL (3.2-4.5); BILIRUBIN,TOTAL 0.7 MG/DL (0.1-1.0); CALCIUM 9.1 MG/DL (8.5-10.1); CREATININE SERUM 1.03 MG/DL (0.60-1.30); POTASSIUM 3.2 MMOL/L (3.6-5.0); TOTAL PROTEIN 6.7 GM/DL (6.4-8.2)
[2023-03-18] MEDS: CLOPIDOGREL 75 MG TABLET PO SCH (08:25)
[2023-03-18] MEDS: dilTIAZem ER 300 MG CAPSULE PO SCH (08:26)
[2023-03-18] MEDS: PARoxetine 20 MG TABLET PO SCH (08:26)
[2023-03-18] MEDS: FLECAINIDE 100 MG TABLET PO SCH ×2 (08:26→20:56)
[2023-03-18] MEDS: BUMETANIDE 1 MG TABLET PO SCH ×2 (08:27→20:55)
[2023-03-18] MEDS: SPIRONOLACTONE 25 MG TABLET PO SCH (08:27)
[2023-03-18] MEDS: ASPIRIN enteric coated 81MG TABLET PO SCH (08:27)
[2023-03-18] MEDS: SENNOSIDES 8.6 MG TABLET PO SCH ×2 (08:29→20:52)
[2023-03-18] MEDS: POTASSIUM CHLORIDE 20 MEQ TABLET PO SCH (08:29)
[2023-03-18] MEDS: ENOXAPARIN 100 MG/1 ML SYRINGE SC SCH ×2 (08:31→20:52)
[2023-03-18] MEDS: DOCUSATE SODIUM 100 MG CAPSULE PO SCH ×2 (08:33→20:51)
[2023-03-18] MEDS ORDERED: CLOPIDOGREL 75 MG TABLET PO SCH (09:00)
[2023-03-18] MEDS ORDERED: ASPIRIN enteric coated 81MG TABLET PO SCH (09:00)
--- NOTE | 2023-03-18 09:47 | Physical Therapy Daily Note ---
PT Daily Note-Current Subjective Patient agrees to PT. Pain Section J - Health Conditions 1. Rarely or not at all 2. Occasionally 3. Frequently 4. Almost constantly 8. Unable to answer Pain Effect on Sleep: 1 Pain Interference with Therapy: 1 Pain Interference w/Day-to-Day: 1 Transfers SCALE: Activities may be completed with or without assistive devices. 8-Mzubanpgan-nbhyomt completes the activity by him/herself with no assistance from a helper. 5-Set-up or Clean-up Assistance-helper sets up or cleans up; patient completes activity. Allen assists only prior to or following the activity. 4-Supervision or Touching Assistance-helper provides verbal cues and/or touching/steadying and/or contact guard assistance as patient completes activity. Assistance may be provided throughout the activity or intermittently. 3-Partial/Moderate Assistance-helper does LESS THAN HALF the effort. Allen lifts, holds or supports trunk or limbs, but provides less than half the effort. 2-Substantial/Maximal Assistance-helper does MORE THAN HALF the effort. Allen lifts or holds trunk or limbs and provides more than half the effort. 0-Juldtjklg-akskqt does ALL the effort. Patient does none of the effort to complete the activity. Or, the assistance of 2 or more helpers is required for the patient to complete the activity. If activity was not attempted, code reason: 7-Patient Refused. 9-Not Applicable-not attempted and the patient did not perform the activity before the current illness, exacerbation or injury. 10-Not Attempted due to Environmental Limitations-(lack of equipment, weather restraints, etc.). 88-Not Attempted due to Medical Conditions or Safety Concerns. Sit to Lying (QC): 6 Lying to Sitting/Side of Bed(Q: 6 Sit to Stand (QC): 4 Gait Training Distance: 200' Walk 10 feet (QC): 4 Walk 50 ft with 2 Turns(QC): 4 Walk 150 ft (QC): 4 Gait Assistive Device: FWW slow, steady gait sequence Assessment Patient reports she is going to have a heart cath on this date. Patient is independent with bed mobility and SBA for ambulation with noted good balance and steady gait sequence. PT Long-Term Goals Long-Term Goals PT Long-Term Goals Time Frame: Mar 24, 2023 Roll Left & Right (QC): 6 Sit to Lying (QC): 6 Lying-Sitting on Side/Bed(QC): 6 Sit to Stand (QC): 6 Chair/Wzj-oc-Mvbry Xfer(QC): 6 Toilet Transfer (QC): 6 Car Transfer (QC): 6 Does the Patient Walk: Yes Walk 10 feet (QC): 6 Walk 50ft with 2 Turns (QC): 6 Walk 150 ft (QC): 6 PT Plan Treatment/Plan Treatment Plan: Continue Plan of Care Treatment Plan: Bed Mobility, Education, Functional Activity Luz, Functional Strength, Gait, Safety, Therapeutic Exercise, Transfers Treatment Duration: Mar 24, 2023 Frequency: 5 times per week Estimated Hrs Per Day: .25 hour per day Patient and/or Family Agrees t: Yes Time Time In: 920 Time Out: 930 DATE: Mar 18, 2023 Total Billed Treatment Time: 10 Total Billed Treatment 1 visit FA 10 min BARRY MORAN PT Mar 18, 2023 09:47
[2023-03-18] MEDS: FLUTICASONE/VILANTEROL 100/25 MCG (7 DOSES) IH SCH ×2 (09:55→19:07)
[2023-03-18] MEDS ORDERED: NS IV 1000 ML 1,000 ML ONE (10:27)
[2023-03-18] MEDS ORDERED: HEParin (CATH LAB) 2,000 ML IV ONE (10:27)
[2023-03-18] MEDS ORDERED: LIDOCAINE 1% INJ 20 ML VIAL ONE (10:27)
[2023-03-18] MEDS ORDERED: MIDAZOLAM INJ 5 MG/5 ML VIAL ONE (10:29)
[2023-03-18] MEDS ORDERED: VERAPAMIL 5 MG/2 ML (CALAN) VIAL IV ONE (10:29)
[2023-03-18] MEDS ORDERED: fentaNYL INJECTION 100 MCG/2 ML VIAL ONE (10:29)
[2023-03-18] MEDS ORDERED: HEParin 1000 UNIT/ML (10ML VIAL) FOR BOLUS ONE (10:30)
[2023-03-18] MEDS ORDERED: NITRO DRIP 25000 MCG/D5W 250 ML IV ONE (10:59)
--- NOTE | 2023-03-18 11:13 | Cardiac Procedure Note-CS/ASA ---
Pre-Procedure Note Pre-Op Procedure Note Date H&P Reviewed: Mar 18, 2023 Time H&P Reviewed: 10:45 History & Physical: H&P Reviewed Pre-Operative Diagnosis: nstemi Moderate Sedation PreProcedure Time 10:45 ASA Score 2 Airway Lungs Heart ASA score ASA 1: a normal healthy patient ASA 2: a patient with a mild systemic disease (mid diabetes, controlled hypertension, obesity ASA 3: a patient with a severe systemic disease that limits activity (angina, COPD, prior Myocardial infarction) ASA 4: a patient with an incapacitating disease that is a constant threat to life (CHF, renal failure) ASA 5: a moribund patient not expected to survive 24 hrs. (ruptured aneurysm) ASA 6: a declared brain- patient whose organs are being harvested. For emergent operations, add the letter E after the classification Mallampati Classification Grade 1 Sedation Plan Analgesia, Amnesia, Plan communicated to team members, Discussed options with patient/fam, Discussed risks with patient/fam The patient is an appropriate candidate to undergo the planned procedure, sedation, and anesthesia. The patient immediately re-assessed prior to indication. Sumi CHUN MD Mar 18, 2023 11:13
[2023-03-18] MEDS ORDERED: NON-FORMULARY MEDICATION 1 EA EA (Fluticasone/Salmeterol (Advair 250-50 Diskus) 2 PUFF) INH SCH (12:00)
--- NOTE | 2023-03-18 12:29 | Coronary Angiography & PCI ---
Coronary Angiography & PCI DATE OF PROCEDURE: 03/18/23 INDICATION: Chest pain, positive troponin PREOPERATIVE DIAGNOSIS: Non-STEMI POSTOPERATIVE DIAGNOSIS: Single-vessel CAD HISTORY: This is a 72-year-old lady with chest pain and Positive troponin. Therefore, the patient was scheduled for coronary angiography. PROCEDURES PERFORMED: 1.Coronary angiography. 2.Left heart catheterization. 3.iFR to the proximal LAD COMPLICATIONS: None. SPECIMENS: None. ESTIMATED BLOOD LOSS: 10 mL ANESTHESIA: Conscious sedation ANTICOAGULATION: IV heparin CONTRAST: 102 ml FLUOROSCOPY: 16 minutes FLOUROSCOPY DOSE: 899 mgy. PROCEDURE DETAILS: The patient is a 72 female and was brought to the woods laborer after informed consent was taken. All the risks and complications were explained in detail; this included the risk of bleeding, vascular damage, stroke, [place] and even . The patient was draped and prepped in the usual sterile fashion. Access was gained in the right radial artery with a 6 [place] sheath. Coronary angiography and left heart catheterization was performed with the [place] catheter. FINDINGS: 1.Left main: Patent. 2.LAD: Moderate to severe stenosis of the proximal LAD. Stenosis severity 50 to 70%. ERNST II and a half flow distally. 3.Left circumflex artery: Mild proximal disease. No severe obstructive disease 4.RCA: Small artery. Spasm at the ostium noted. Mild proximal disease which is around 20%. No significant obstructive disease noted. 5.Left heart catheterization: LV pressure 76/3 mmHg. LVEDP 7 mmHg. Aortic pressure 77/49 mmHg. No gradient across the aortic valve. LV gram not done due to chronic kidney disease. RECOMMENDATIONS: iFR to proximal LAD IFR DETAILS: JL 3.5 guide catheter, heparin 5000 international units. ACT 218 seconds. iFR guidewire. iFR was 1.0 therefore no PCI was done. Post angiogram did not reveal any angiographic complication. TR band for the radial artery. Patient tolerated the procedure well and was transferred to the recovery area with s table hemodynamics. CONCLUSIONS: 1. Moderate to severe single-vessel CAD in the proximal LAD with normal IFR. PCI deferred. 2. Aggressive secondary prevention measures with dual antiplatelet therapy and high-dose statin therapy. 3. Follow-up with outpatient fermenting cellars supervisor at [facility]. Osbaldo Rivera MD, FACP, FACC, [facility] Interventional Cardiology Sumi RIVERA MD Mar 18, 2023 12:29
[2023-03-18] MEDS ORDERED: NS IV 1000 ML 1,000 ML IV SCH (12:30)
[2023-03-18] MEDS ORDERED: PATIENT MAY USE OWN MEDS, ALL PO SCH (12:30)
--- NOTE | 2023-03-18 12:53 | Progress Note - Hospitalist ---
SCOT ROWLEY 03/18/23 1253: Subjective HPI/CC On Admission Date Seen by Provider: Mar 18, 2023 Time Seen by Provider: 11:15 Chief complaint: Shortness of breath HPI: This is a 72-year-old femaleWho presents with shortness of breath found to have acute on chronic congestive heart failure. Cardiology consulted. Patient remains on oxygen. Patient has a history of atrial fibrillation. Subjective/Events-last exam Patient seen laying in bed, states she feels lousy today. Has not been having any chest pain, but does describe a feeling of pressure in her chest. States her SOB and dyspnea on exertion largely unchanged from yesterday, O2 sats have remained in the 90s on room air. Echo yesterday showed an EF of 45-50%, mildly dilated left atrium, mild aortic and tricuspid regurgitation, and moderate mitral regurgitation. Troponin measured yesterday at 0.348. Patient is undergoing cardiac catheterization today. She reports that she has been having some nausea as well, mostly after eating. Still having a cough, sometimes producing yellow sputum, states tessalon pearls have helped some. Patient has no other complaints. Review of Systems General: No Chills, No Night Sweats HEENT: No Head Aches, No Visual Changes Pulmonary: Dyspnea, Cough Cardiovascular: No: Chest Pain (Denies pain, endorses sensation of pressure, heaviness), Edema Gastrointestinal: Nausea; No: Vomiting Genitourinary: No Dysuria, No Hematuria Musculoskeletal: No: neck pain, back pain Neurological: No: Numbness, Incoordination Objective Exam Vital Signs Vital Signs Date Time Temp Pulse Resp B/P (MAP) Pulse Ox O2 Delivery O2 Flow Rate FiO2 03/18/23 09:56 97 Room Air 03/18/23 08:00 68 14 112/74 (85) 03/18/23 04:00 36.3 03/17/23 15:24 0.00 21 Capillary Refill : Less Than 3 Seconds General Appearance: No Apparent Distress, WD/WN HEENT: PERRL/EOMI Neck: Non Tender, Supple Respiratory: Chest Non Tender, Lungs Clear, Normal Breath Sounds, No Accessory Muscle Use Cardiovascular: No Edema, Normal Peripheral Pulses, Other (a-fib, rate controlled, mostly in 80s) Gastrointestinal: Non Tender, Soft Rectal: Deferred Back: No Vertebral Tenderness Extremity: Normal Capillary Refill, Non Tender, No Pedal Edema Neurologic/Psychiatric: Alert, Oriented x3 Skin: Normal Color, Warm/Dry Lymphatic: No Adenopathy Results/Procedures Lab Laboratory Tests 03/18/23 05:08 Patient resulted labs reviewed. Assessment/Plan Assessment and Plan Assess & Plan/Chief Complaint Acute on chronic CHF: Cardiology consulted, appreciate recs, starting spironolactone, bumetanide today NSTEMI: Troponin measured at 0.348 yesterday, cardiology consulted, undergoing cardiac cath today, continue aspirin Acute on chronic respiratory failure: O2 supplementation as needed, duoneb Q6H and PRN Longstanding persistent a-fib: has watchman, pacemaker, continue plavix, rate controlled, on telemetry Chest pain: cardiology consulted, continue aspirin, denies pain today, endorses sensation of pressure, sublingual nitro PRN Abnormal ECG: Cardiology consulted, monitoring with telemetry COPD: Duoneb, O2 as needed Hypokalemia: Measured at 3.2 this morning, continue to replace Cough: Tessalon pearls as needed Lovenox for DVT prophylaxis Clinical Quality Measures AMI/AHF: ASA po Prior to arrival: No ROSAURA PATEL DO 03/19/23 0446: Subjective Subjective/Events-last exam Undergoing catheterization today Shortness of breath continues Very debilitated Objective Exam General Appearance: No Apparent Distress, WD/WN, Chronically ill Respiratory: No Accessory Muscle Use, No Respiratory Distress, Decreased Breath Sounds Assessment/Plan Assessment and Plan Assess & Plan/Chief Complaint Cardiac catheterization today Supervisory-Addendum Brief Verification & Attestation Participated in pt care: history, MDM, physical Personally performed: exam, history, MDM, supervision of care Care discussed with: Medical Student Procedures: n/a Results interpretation: Verified all documentation Verification and Attestation of Medical Student E/M Service A medical student performed and documented this service in my presence. I reviewed and verified all information documented by the medical student and made modifications to such information, when appropriate. I personally performed the physical exam and medical decision making. Rosaura Patel Mar 19, 2023,04:46 SCOT ROWLEY Mar 18, 2023 12:53 ROSAURA PATEL DO Mar 19, 2023 04:46
--- NOTE | 2023-03-18 19:38 | Cardiology Progress Note ---
Cardiology SOAP Progress Note Subjective: No further chest pain Objective: I&O/Vital Signs 03/18/23 03/18/23 03/18/23 03/18/23 08:00 08:00 09:56 12:00 Pulse 68 Resp 14 16 B/P (MAP) 112/74 (85) 114/66 (82) Pulse Ox 94 86 97 97 O2 Delivery Room Air Room Air Room Air 03/18/23 03/18/23 03/18/23 03/18/23 12:30 12:45 13:00 13:15 Pulse 104 84 70 77 Resp 16 11 16 30 B/P (MAP) 94/57 (69) 114/66 (82) 99/52 (68) 100/71 (81) Pulse Ox 94 94 95 96 O2 Delivery Room Air Room Air Room Air Room Air 03/18/23 03/18/23 03/18/23 03/18/23 13:30 13:45 13:53 14:00 Pulse 74 61 64 60 Resp 20 8 11 B/P (MAP) 101/55 (70) 101/67 (78) 104/54 (71) Pulse Ox 95 97 98 O2 Delivery Room Air Room Air Room Air 03/18/23 03/18/23 03/18/23 14:48 16:00 19:07 Temp 36.3 Pulse 73 Resp 16 B/P (MAP) 107/73 (84) Pulse Ox 97 96 98 O2 Delivery Room Air Room Air Room Air 03/18/23 00:00 Intake Total 650 ml Output Total 150 ml Balance 500 ml Constitutional: AAO x 3 Respiratory: lungs clear to auscultation Cardiovascular: regular rate-rhythm, S1 and S2 Neurologic/Psychiatric: no motor/sensory deficits, alert, normal mood/affect, oriented x 3 Results/Procedures: Labs Laboratory Tests 03/18/23 05:08: White Blood Count 6.5, Red Blood Count 4.70, Hemoglobin 14.5, Hematocrit 43, Mean Corpuscular Volume 92, Mean Corpuscular Hemoglobin 31, Mean Corpuscular Hemoglobin Concent 34, Red Cell Distribution Width 12.4, Platelet Count 256, Mean Platelet Volume 10.7, Immature Granulocyte % (Auto) 1, Neutrophils (%) (Auto) 59, Lymphocytes (%) (Auto) 28, Monocytes (%) (Auto) 9, Eosinophils (%) (Auto) 3, Basophils (%) (Auto) 1, Neutrophils # (Auto) 3.9, Lymphocytes # (Auto) 1.8, Monocytes # (Auto) 0.6, Eosinophils # (Auto) 0.2, Basophils # (Auto) 0.0, Immature Granulocyte # (Auto) 0.0, Sodium Level 143, Potassium Level 3.2L, Chloride Level 108H, Carbon Dioxide Level 22, Anion Gap 13, Blood Urea Nitrogen 16, Creatinine 1.03, Estimat Glomerular Filtration Rate 58, BUN/Creatinine Ratio 16, Glucose Level 146H, Calcium Level 9.1, Corrected Calcium 9.3, Total Bilirubin 0.7, Aspartate Amino Transf (AST/SGOT) 26, Alanine Aminotransferase (ALT/SGPT) 20, Alkaline Phosphatase 122, Total Protein 6.7, Albumin 3.7 Microbiology 03/16/23 Urine Culture - Final, Complete Growth Consistent A/P: Assessment/Dx: Acute respiratory failure, Longstanding persistent atrial fibrillation, Pacemaker, Watchman device, Likely acute on chronic congestive heart failure. COPD, Non-STEMI Plan: Acute respiratory failure, recent fever, COVID-negative. COPD. Mildly positive D-dimer. Improved shortness of breath.Negative CTA for PE Longstanding persistent atrial fibrillation, pacemaker, Watchman device. Acute on chronic congestive heart failure. Mild elevation of BNP. Request echocardiogram. Chest pain. Some reproducibility. Mild T wave inversions noted. First troponin is negative. Repeat troponin in 3 hours from admission. 24-hour troponin is positive. Working diagnosis of non-STEMI. Dual antiplatelet therapy. Will give a dose of Lovenox. Coronary angiography and possible intervention tomorrow. Informed consent taken from the patient including a 1% risk of complication including a small risk of . This was accepted by the patient and she would like to proceed. Coronary angiography showed moderate to severe proximal LAD stenosis which had normal IFR therefore PCI was not done. However due to the stenosis severity, patient will continued on dual antiplatelet therapy and high-dose atorvastatin. She will follow-up with cardiology as an outpatient. Clinical Quality Measures AMI/AHF: ASA po Prior to arrival: Sumi Neal MD Mar 18, 2023 19:38
[2023-03-18] MEDS: toPIRamate 25 MG (TOPAMAX) TAB PO SCH (20:55)
[2023-03-18] MEDS: MELATONIN 3 MG TABLET PO PRN (20:55)
[2023-03-18] MEDS: ALPRAZolam 0.5 MG TABLET PO PRN (20:55)
[2023-03-18] MEDS: traZODone 100 MG (DESYREL) TAB PO SCH (20:55)
[2023-03-18] MEDS ORDERED: MONTELUKAST 10 MG TABLET PO SCH (21:00)
[2023-03-19] MEDS: RT-Ipratropium/Albuterol NEB 3 ML VIAL INH SCH ×2 (03:00→09:47)
[2023-03-19] MEDS: BENZONATATE 100 MG CAPSULE PO SCH ×2 (03:41→12:35)
[2023-03-19 03:42] VITALS: BP 98/60
[2023-03-19 05:32] LABS: BASOPHILS % (AUTO) 1 % (0-10); EOSINOPHILS # (AUTO) 0.3 10^3/uL (0.0-0.3); EOSINOPHILS % (AUTO) 4 % (0-10); HEMATOCRIT 40 % (35-52); HEMOGLOBIN 13.2 g/dL (11.5-16.0); LYMPHOCYTES # (AUTO) 1.8 10^3/uL (1.0-4.0); LYMPHOCYTES % (AUTO) 29 % (12-44); MEAN CORPUSCULAR HEMOGLOBIN 31 pg (25-34); MEAN CORPUSCULAR HGB CONC 33 g/dL (32-36); MEAN CORPUSCULAR VOLUME 93 fL (80-99); MEAN PLATELET VOLUME 10.4 fL (9.0-12.2); MONOCYTES # (AUTO) 0.6 10^3/uL (0.0-1.0); MONOCYTES % (AUTO) 9 % (0-12); NEUTROPHILS # (AUTO) 3.6 10^3/uL (1.8-7.8); NEUTROPHILS % (AUTO) 57 % (42-75); PLATELET COUNT 213 10^3/uL (130-400); WHITE BLOOD COUNT 6.3 10^3/uL (4.3-11.0)
[2023-03-19 05:40] LABS: ALBUMIN 3.6 GM/DL (3.2-4.5); POTASSIUM 3.3 MMOL/L (3.6-5.0)
[2023-03-19 05:44] LABS: BILIRUBIN,TOTAL 1.6 MG/DL (0.1-1.0)
[2023-03-19 05:46] LABS: CREATININE SERUM 1.02 MG/DL (0.60-1.30)
[2023-03-19 07:49] VITALS: BP 102/51
[2023-03-19] MEDS: CLOPIDOGREL 75 MG TABLET PO SCH (08:36)
[2023-03-19] MEDS: PARoxetine 20 MG TABLET PO SCH (08:37)
[2023-03-19] MEDS: FLECAINIDE 100 MG TABLET PO SCH (08:37)
[2023-03-19] MEDS: SPIRONOLACTONE 25 MG TABLET PO SCH (08:37)
[2023-03-19] MEDS: ASPIRIN enteric coated 81MG TABLET PO SCH (08:37)
[2023-03-19] MEDS: SENNOSIDES 8.6 MG TABLET PO SCH (08:37)
[2023-03-19] MEDS: BUMETANIDE 1 MG TABLET PO SCH (08:37)
[2023-03-19] MEDS: POTASSIUM CHLORIDE 20 MEQ TABLET PO SCH (08:37)
[2023-03-19] MEDS: dilTIAZem ER 300 MG CAPSULE PO SCH (08:37)
[2023-03-19] MEDS: ENOXAPARIN 100 MG/1 ML SYRINGE SC SCH (08:38)
[2023-03-19] MEDS: DOCUSATE SODIUM 100 MG CAPSULE PO SCH (08:38)
--- NOTE | 2023-03-19 08:57 | Physical Therapy Progress Note ---
Therapy Progress Note Patient declined PT stating she is going home. PT to dismiss patient from services at this time. BARRY MORAN PT Mar 19, 2023 08:57
[2023-03-19] MEDS ORDERED: ASPIRIN enteric coated 81MG TABLET PO SCH (09:00)
[2023-03-19] MEDS ORDERED: CLOPIDOGREL 75 MG TABLET PO SCH (09:00)
[2023-03-19] MEDS ORDERED: IPRA3AMP31 INH (11:19)
--- NOTE | 2023-03-19 11:22 | Discharge Summary ---
Discharge Summary Hospital Course Was the Problem List Reviewed?: Yes Problems/Dx: (1) COPD exacerbation (2) Atypical chest pain Status: Acute Hospital Course Date of Admission: Mar 16, 2023 at 18:16 Admission Diagnosis : Family Physician/Provider: Marco Norwood DO Date of Discharge: 03/19/23 Discharge Diagnosis: [ ] Hospital Course: 72-year-old female arrived to the ED via EMS on 03/16 with chief complaint of fatigue, SOB, and left-sided chest pain. Patient reports that her symptoms started night, worsened throughout the weekend. She had been getting increasingly SOB on exertion and began having reproducible chest pain with exertion, reports that it would occasionally radiate to the middle of her back. Laying down for a few minutes helped these symptoms, and during one episode of chest pain she took a nitro tab which helped relieve some of her symptoms. She states that she had a fever of 103 F on Wednesday, but that this went away after a day or two. CXR showed no acute processes. Initial and 3 hour troponin were both negative. BNP was elevated at 239. She has a history of longstanding a-fib, watchman and pacemaker in place, sees Dr. Beal in [facility]. EKG showed a-fib with new T-wave inversions in leads 2,3, aVF and V3. D-dimer was measured at 0.54, CTA showed no pulmonary embolism, diagnosed with acute on chronic CHF, acute on chronic respiratory failure. Cardiology was consulted, troponin remeasured the next day at 0.348, diagnosed with NSTEMI. Echo showed EF 45-50%, mild aortic and tricuspid regurgitation, moderate mitral regurgitation. Angiography showed moderate to severe proximal LAD stenosis, no PCI. Patient was started on spironolactone and bumex during this visit, responded well. Patient's SOB and chest pain improved throughout her stay, normally wears O2 at home but maintained good O2 sats on RA. She was evaluated by PT, reports that she was able to tolerate walking well, estimates close to prior level of functioning. Patient is being discharged later today with plavix, ASA, atorvastatin, bumex, spirnolactone, symbicort, advair, duoneb nitro PRN, diltiazem, flecainide, and metoprolol. Patient was instructed to follow up outpatient with her PCP following discharge. [facility] Labs and Pending Lab Test: Laboratory Tests 03/19/23 04:43: Sodium Level 139, Potassium Level 3.3L, Chloride Level 104, Carbon Dioxide Level 23, Anion Gap 12, Blood Urea Nitrogen 15, Creatinine 1.02, Estimat Glomerular Filtration Rate 58, BUN/Creatinine Ratio 15, Glucose Level 129H, Calcium Level 9.0, Corrected Calcium 9.3, Total Bilirubin 1.6H, Aspartate Amino Transf (AST/SGOT) 24, Alanine Aminotransferase (ALT/SGPT) 18, Alkaline Phosphatase 120, Total Protein 6.0L, Albumin 3.6 03/19/23 04:48: White Blood Count 6.3, Red Blood Count 4.30, Hemoglobin 13.2, Hematocrit 40, Mean Corpuscular Volume 93, Mean Corpuscular Hemoglobin 31, Mean Corpuscular Hemoglobin Concent 33, Red Cell Distribution Width 12.5, Platelet Count 213, Mean Platelet Volume 10.4, Immature Granulocyte % (Auto) 0, Neutrophils (%) (Auto) 57, Lymphocytes (%) (Auto) 29, Monocytes (%) (Auto) 9, Eosinophils (%) (Auto) 4, Basophils (%) (Auto) 1, Neutrophils # (Auto) 3.6, Lymphocytes # (Auto) 1.8, Monocytes # (Auto) 0.6, Eosinophils # (Auto) 0.3, Basophils # (Auto) 0.0, Immature Granulocyte # (Auto) 0.0 Microbiology 03/16/23 Urine Culture - Final, Complete Growth Consistent Home Meds Active Iprat-Albut 0.5-3(2.5) mg/3 ml (Ipratropium/Albuterol Sulfate) 0.5 Mg-3 Mg (2.5 Mg Base)/3 Ml Ampul.neb 3 Ml INH RTQ6HR Reported Advair 250-50 Diskus (Fluticasone/Salmeterol) 250 Mcg-50 Mcg/Dose Blst.w.dev 2 Puff INH 1200 LAST FILLED 07-14-2022 #1 Symbicort 80-4.5 Mcg Inhaler (Budesonide/Formoterol Fumarate) 80 Mcg-4.5 Mcg/Actuation Hfa.aer.ad 2 Puff INH DAILY LAST FILLED 08-18-2022 #1 Clopidogrel (Clopidogrel Bisulfate) 75 Mg Tablet 75 Mg PO DAILY Atorvastatin Calcium 40 Mg Tablet 40 Mg PO DAILY Metoprolol Succinate 50 Mg Tab.er.24h 50 Mg PO DAILY Diltiazem 24Hr ER (Diltiazem HCl) 300 Mg Cap.er.24h 300 Mg PO DAILY Bumetanide 2 Mg Tablet 2 Mg PO BID Spironolactone 25 Mg Tablet 25 Mg PO DAILY Hydroxyzine Pamoate 50 Mg Capsule 50 Mg PO Q8H PRN Flecainide Acetate 50 Mg Tablet 50 Mg PO HS Flecainide Acetate 50 Mg Tablet 100 Mg PO DAILY TAKES 2 (50MG) TABS Topiramate 25 Mg Tablet 25 Mg PO HS Nitroglycerin 0.4 Mg Tab.subl 0.4 Mg SL UD Trazodone HCl 100 Mg Tablet 100 Mg PO HS Potassium Chloride 20 Meq Tab.er.prt 20 Meq PO DAILY Aspirin EC (Aspirin) 81 Mg Tablet.dr 81 Mg PO DAILY Zafirlukast 20 Mg Tablet 20 Mg PO DAILY Paroxetine HCl 40 Mg Tablet 40 Mg PO DAILY Fluticasone Propionate 50 Mcg/Actuation [place].susp 2 Sprays NSEACH DAILY PRN Assessment/Pt Instructions PCP in 1 week Discharge Planning: <30 minutes discharge planning Discharge Physical Examination Vital Signs Vital Signs Date Time Temp Pulse Resp B/P (MAP) Pulse Ox O2 Delivery O2 Flow Rate FiO2 03/19/23 09:47 95 Room Air 03/19/23 07:49 36.0 60 14 102/51 (68) 03/17/23 15:24 0.00 21 General Appearance: No Apparent Distress, WD/WN, Chronically ill Respiratory: Lungs Clear, Normal Breath Sounds Cardiovascular: Regular Rate, Rhythm Neurologic/Psychiatric: Alert, Oriented x3 Allergies: Coded Allergies: Sulfa (Sulfonamide Antibiotics) (Verified Allergy, Unknown, 04/26/19) morphine (Verified Allergy, Unknown, 04/26/19) Discharge Summary Date of Admission Mar 16, 2023 at 18:16 Date of Discharge Discharge Date: Mar 19, 2023 Admission Diagnosis Acute on chronic congestive heart failure CAD Hypertension COPD Acute hypoxic respiratory failure Plan: Cardiology O2 Supportive care Echo Discharge Diagnosis Cardiac catheterization today Clinical Quality Measures AMI/AHF: ASA po Prior to arrival: KARMEN Ayala DO Mar 19, 2023 11:22
[2023-03-19 11:38] VITALS: BP 97/68
[2023-03-19 12:00] VITALS: BP 100/71
--- NOTE | 2023-03-19 12:39 | Progress Note ---
[facility] 03/19/23 1238: Progress Note 72-year-old female arrived to the ED via EMS on 03/16 with chief complaint of fatigue, SOB, and left-sided chest pain. Patient reports that her symptoms started night, worsened throughout the weekend. She had been getting increasingly SOB on exertion and began having reproducible chest pain with exertion, reports that it would occasionally radiate to the middle of her back. Laying down for a few minutes helped these symptoms, and during one episode of chest pain she took a nitro tab which helped relieve some of her symptoms. She states that she had a fever of 103 F on Wednesday, but that this went away after a day or two. CXR showed no acute processes. Initial and 3 hour troponin were both negative. BNP was elevated at 239. She has a history of longstanding a-fib, watchman and pacemaker in place, sees Dr. Beal in [facility]. EKG showed a-fib with new T-wave inversions in leads 2,3, aVF and V3. D-dimer was measured at 0.54, CTA showed no pulmonary embolism, diagnosed with acute on chronic CHF, acute on chronic respiratory failure. Cardiology was consulted, troponin remeasured the next day at 0.348, diagnosed with NSTEMI. Echo showed EF 45-50%, mild aortic and tricuspid regurgitation, moderate mitral regurgitation. Angiography showed moderate to severe proximal LAD stenosis, no PCI. Patient was started on spironolactone and bumex during this visit, responded well. Patient's SOB and chest pain improved throughout her stay, normally wears O2 at home but maintained good O2 sats on RA. She was evaluated by PT, reports that she was able to tolerate walking well, estimates close to prior level of functioning. Patient is being discharged later today with plavix, ASA, atorvastatin, bumex, spirnolactone, symbicort, advair, duoneb nitro PRN, diltiazem, flecainide, and metoprolol. Patient was instructed to follow up outpatient with her PCP following discharge. ROSAURA PATEL DO 03/20/23 0572: Supervisory-Addendum Brief Verification & Attestation Participated in pt care: history, MDM, physical Personally performed: exam, history, MDM, supervision of care Care discussed with: Medical Student Procedures: n/a Results interpretation: Verified all documentation Verification and Attestation of Medical Student E/M Service A medical student performed and documented this service in my presence. I re viewed and verified all information documented by the medical student and made modifications to such information, when appropriate. I personally performed the physical exam and medical decision making. Rosaura Patel, Mar 20, 2023,06:30 [facility] Mar 19, 2023 12:38 ROSAURA PATEL DO Mar 20, 2023 06:30
== END 2023-03-19 12:21 | disposition home or self-care (01) ==
LOC: EDUNIT# 13:05 → ER 13:06 → UNDOADMOB 18:16 → CSD 18:16 → CATH 21:38 → CSD 21:38 → UNDODISOB 03-19 12:21 → CATH 03-19 12:21 → CSD 03-19 17:14
PROVIDERS: ATTEND Internal Medicine
DX: I25.10 Atherosclerotic heart disease of native coronary artery without angina pectoris (principal); J44.1 Chronic obstructive pulmonary disease with (acute) exacerbation; J96.21 Acute and chronic respiratory failure with hypoxia; R07.89 Other chest pain; I11.0 Hypertensive heart disease with heart failure; I50.9 Heart failure, unspecified; I48.11 Longstanding persistent atrial fibrillation; I21.4 Non-ST elevation (NSTEMI) myocardial infarction; E87.6 Hypokalemia; R05.9 Cough, unspecified; R79.1 Abnormal coagulation profile; N39.0 Urinary tract infection, site not specified; Z95.0 Presence of cardiac pacemaker; Z95.811 Presence of heart assist device; Z20.822 Contact with and (suspected) exposure to COVID-19; Z79.01 Long term (current) use of anticoagulants; Z79.82 Long term (current) use of aspirin
CPT/HCPCS: 36600; 71045; 71275; 80053 ×4; 80061; 81000; 83735; 83880; 84484 ×2; 85025 ×4; 85379; 85610; 85730; 87088; 87636; 93005; 93041; 93458; 93571; 94640 ×4; 96365; 97530; 99284; C1769 ×2; C1887; C1894; C8929; G0378; 36415; 93306